=== PATIENT | male | born 1940 | race Caucasian/White ===

== ENCOUNTER → 2016-05-09 | Outpatient (CLI) | payer MEDICARE, OTHER ==
--- NOTE | 2016-05-09 11:54 | US ---
EXAMINATION TYPE: US abdomen limited DATE OF EXAM: 05/09/2016 10:39 AM COMPARISON: NONE CLINICAL HISTORY: M79.81 Nontraumatic Hematoma Of Soft Tissue. elderly pt with significant bruising o katherin the rt flank, pt noticed few days ago, no known trauma, he has been coughing TECHNOLOGIST IMPRESSION: scanned over the pt's area of concern/ significant bruising, no abnormality noted by ultrasound No hematoma is evident. No intramuscular hematomas evident. No fluid is within the abdomen within the [id number]. Subcutaneous tissue appears unremarkable. No demarcation between the bruising and kno t and bruising areas evident. IMPRESSION: 1. Normal soft tissue ultrasound. No etiology for the bruising is evident. No underlying hematoma is evident.
== END | disposition home or self-care (01) ==
LOC: RADUSWWP 10:06
PROVIDERS: ATTEND Family Medicine
DX: M79.81 Nontraumatic hematoma of soft tissue (principal)
CPT/HCPCS: 76705

== ENCOUNTER 2016-07-16 17:06 | Inpatient (IN) | payer MEDICARE, OTHER ==
--- NOTE | 2016-07-16 18:43 | ED ---
General Adult HPI - General Chief complaint: Dizziness Stated complaint: dizzy Time Seen by Provider: 07/16/16 18:00 Source: patient, family, RN notes reviewed Mode of arrival: wheelchair - History of Present Illness Initial comments: This is a 75-year-old male who presents emergency department stating that he is becoming dizzy a few times a day and the symptoms are worsening every day. Patient states that the symptoms for at least a week. Patient states he feels as though is given a passout not fall over. Patient's states he has not yet passed out. Patient states he becomes dizzy only when he is walking and he becomes diaphoretic and short of breath he states he stands around for a little bit and then the symptoms subside. Patient denies any chest pain or palpitations. Patient denies headache patient denies any numbness or local weakness. Patient denied any abdominal pain. Patient denies any nausea or vomiting. Patient denied any recent fever chills or cough. Patient denies any diarrhea. Patient denies headache. - Related Data Home Medications Medication Instructions Recorded Confirmed Finasteride [Proscar] 5 mg PO QAM 10/03/14 07/16/16 Tamsulosin [Flomax] 0.4 mg PO BID 10/03/14 07/16/16 [place]-3 Fatty Acids/Fish Oil [Fish 1 cap PO QAM 11/17/14 07/16/16 Oil 1,000 mg Softgel] HYDROcodone/APAP 10-325MG [[place] 1 tab PO Q4H PRN MDD 5 tablets 07/14/15 10-325] Aspirin EC [Ecotrin Low Dose] 81 mg PO QAM 10/14/15 07/16/16 Atenolol [Tenormin] 25 mg PO BID 10/14/15 07/16/16 Docusate [Colace] 200 mg PO QAM PRN 10/14/15 07/16/16 Simvastatin [Zocor] 40 mg PO HS 10/14/15 07/16/16 Triamterene-Hctz 37.5-25Mg 1 cap PO QAM 07/16/16 07/16/16 [Dyazide 37.5-25 Capsule] Allergies Allergy/AdvReac Type Severity Reaction Status Date / Time No Known Allergies Allergy Verified 07/16/16 18:58 Review of Systems ROS Statement: Those systems with pertinent positive or pertinent negative responses have been documented in the HPI. ROS Other: All systems not noted in ROS Statement are negative. Past Medical History Past Medical History: Atrial Fibrillation, COPD, Hyperlipidemia, Hypertension, Prostate Disorder Additional Past Medical History / Comment(s): Meniere's disease, BPH, DJD, arthiritis, chronic bradycardia, and chronic back pain, diverticulitis. History of Any Multi-Drug Resistant Organisms: None Reported Date of last positivie culture/infection: 2001? MDRO Source:: KNEE Past Surgical History: Back Surgery, Bowel Resection, Hernia Repair, Orthopedic Surgery Additional Past Surgical History / Comment(s): 04/11/15 EP STUDY . Low back surgery with rods and screws. Left knee fluid drained off and patellar scraped. RIGHT inguinal & abdominal hernia repair. Past Anesthesia/Blood Transfusion Reactions: No Reported Reaction Additional Past Anesthesia/Blood Transfusion Reaction / Comment(s): Pt has never recieved blood. Past Psychological History: No Psychological Hx Reported Additional Psychological History / Comment(s): Pt resides with his spouse. He uses a cane or walker to ambulate. He drives. Smoking Status: Former smoker Past Alcohol Use History: None Reported Additional Past Alcohol Use History / Comment(s): Pt quit smoking in 1967. SMOKED FOR 4-6 YRS. PPD-1. Past Drug Use History: None Reported - Past Family History Mother History Unknown: Yes Family Medical History: No Reported History Additional Family Medical History / Comment(s): passed at 79, unknown cause Father History Unknown: Yes Family Medical History: No Reported History Additional Family Medical History / Comment(s): passed at 81yrs. General Exam - General Exam Comments Initial Comments: GENERAL: Patient is well-developed and well-nourished. Patient is nontoxic and well- hydrated and is in mild distress. ENT: Neck is soft and supple. No significant lymphadenopathy is noted. Oropharynx is clear. Moist mucous membranes. Neck has full range of motion without eliciting any pain. EYES: The sclera were anicteric and conjunctiva were pink and moist. Extraocular movements were intact and pupils were equal round and reactive to light. Eyelids were unremarkable. PULMONARY: Unlabored respirations. Good breath sounds bilaterally. No audible rales rhonchi or wheezing was noted. CARDIOVASCULAR: There is a regular rate and rhythm without any murmurs gallops or rubs. ABDOMEN: Soft and nontender with normal bowel sounds. No palpable organomegaly was noted. There is no palpable pulsatile mass. SKIN: Skin is clear with no lesions or rashes and otherwise unremarkable. NEUROLOGIC: Patient is alert and oriented x3. Cranial nerves II through XII are grossly intact. Motor and sensory are also intact. Normal speech, volume and content. Symmetrical smile. MUSCULOSKELETAL: Normal extremities with adequate strength and full range of motion. No lower extremity swelling or edema. No calf tenderness. LYMPHATICS: No significant lymphadenopathy is noted PSYCHIATRIC: Normal psychiatric evaluation. Normal interpersonal interactions appears functionally intact in deals appropriately with others. No signs of depression. No signs of anxiety. Course Vital Signs 07/16/16 07/16/16 07/16/16 17:48 18:18 18:52 Temperature 97.8 F Pulse Rate 60 66 69 Respiratory 18 18 18 Rate Blood Pressure 116/69 112/67 116/61 Blood Pressure 114/79 [Sitting] Blood Pressure 113/58 [Standing] O2 Sat by Pulse 96 97 99 Oximetry Medical Decision Making - Medical Decision Making Patient's EKG shows atrial paced rhythm at 60 bpm CA interval is 288 QRS is 124 QT interval 420 QTC is 420. Patient's EKG is compared to an old EKG and inverted T waves in leads V5 and V6 are the same as seen previously. Chest x-ray showed no acute abnormality. Patient is been he symptomatically in the emergency department. - Lab Data Result diagrams: 07/16/16 18:18 07/16/16 18:18 Lab Results 07/16/16 07/16/16 07/16/16 Range/Units 18:18 18:18 18:18 WBC 8.8 (3.8-10.6) k/uL RBC 4.69 (4.30-5.90) m/uL Hgb 15.0 (13.0-17.5) gm/dL Hct 43.1 (39.0-53.0) % MCV 91.9 (80.0-100.0) fL MCH 31.9 (25.0-35.0) pg MCHC 34.7 (31.0-37.0) g/dL RDW 13.4 (11.5-15.5) % Plt Count 208 (150-450) k/uL Neutrophils % 66 % Lymphocytes % 23 % Monocytes % 7 % Eosinophils % 1 % Basophils % 1 % Neutrophils # 5.8 (1.3-7.7) k/uL Lymphocytes # 2.0 (1.0-4.8) k/uL Monocytes # 0.6 (0-1.0) k/uL Eosinophils # 0.1 (0-0.7) k/uL Basophils # 0.1 (0-0.2) k/uL PT (9.0-12.0) sec INR (<1.1) APTT (22.0-30.0) sec D-Dimer (<0.60) mg/L FEU Sodium 141 (137-145) mmol/L Potassium 3.6 (3.5-5.1) mmol/L Chloride 106 (98-107) mmol/L Carbon Dioxide 23 (22-30) mmol/L Anion Gap 12 mmol/L BUN 33 H (9-20) mg/dL Creatinine 1.51 H (0.66-1.25) mg/dL Est GFR (MDRD) Af Amer 55 (>60 ml/min/1.73 sqM) Est GFR (MDRD) Non-Af 46 (>60 ml/min/1.73 sqM) Glucose 89 (74-99) mg/dL Calcium 9.5 (8.4-10.2) mg/dL Magnesium 2.2 (1.6-2.3) mg/dL Total Bilirubin 0.7 (0.2-1.3) mg/dL AST 18 (17-59) U/L ALT 28 (21-72) U/L Alkaline Phosphatase 68 (38-126) U/L Total Creatine Kinase 145 (55-170) U/L CK-MB (CK-2) 2.0 (0.0-2.4) ng/mL CK-MB (CK-2) Rel Index 1.4 Troponin I 0.029 (0.000-0.034) ng/mL Total Protein 7.2 (6.3-8.2) g/dL Albumin 4.3 (3.5-5.0) g/dL 07/16/16 Range/Units 18:18 WBC (3.8-10.6) k/uL RBC (4.30-5.90) m/uL Hgb (13.0-17.5) gm/dL Hct (39.0-53.0) % MCV (80.0-100.0) fL MCH (25.0-35.0) pg MCHC (31.0-37.0) g/dL RDW (11.5-15.5) % Plt Count (150-450) k/uL Neutrophils % % Lymphocytes % % Monocytes % % Eosinophils % % Basophils % % Neutrophils # (1.3-7.7) k/uL Lymphocytes # (1.0-4.8) k/uL Monocytes # (0-1.0) k/uL Eosinophils # (0-0.7) k/uL Basophils # (0-0.2) k/uL PT 10.8 (9.0-12.0) sec INR 1.1 (<1.1) APTT 24.7 (22.0-30.0) sec D-Dimer 0.54 (<0.60) mg/L FEU Sodium (137-145) mmol/L Potassium (3.5-5.1) mmol/L Chloride (98-107) mmol/L Carbon Dioxide (22-30) mmol/L Anion Gap mmol/L BUN (9-20) mg/dL Creatinine (0.66-1.25) mg/dL Est GFR (MDRD) Af Amer (>60 ml/min/1.73 sqM) Est GFR (MDRD) Non-Af (>60 ml/min/1.73 sqM) Glucose (74-99) mg/dL Calcium (8.4-10.2) mg/dL Magnesium (1.6-2.3) mg/dL Total Bilirubin (0.2-1.3) mg/dL AST (17-59) U/L ALT (21-72) U/L Alkaline Phosphatase (38-126) U/L Total Creatine Kinase (55-170) U/L CK-MB (CK-2) (0.0-2.4) ng/mL CK-MB (CK-2) Rel Index Troponin I (0.000-0.034) ng/mL Total Protein (6.3-8.2) g/dL Albumin (3.5-5.0) g/dL Disposition Clinical Impression: Near syncope Disposition: ADMITTED IP TO THIS [facility] Time of Disposition: 19:40
[2016-07-16 18:48] LABS: Basophils # (A) 0.1 k/uL (0-0.2); Basophils % (A) 1 %; CH 32.1; CHCM 35.1; Eosinophils # (A) 0.1 k/uL (0-0.7); Eosinophils % (A) 1 %; HCT 43.1 % (39.0-53.0); HDW 2.47; Luc % (Auto) 2; Lymphocytes % (A) 23 %; MCH 31.9 pg (25.0-35.0); MCHC 34.7 g/dL (31.0-37.0); MCV 91.9 fL (80.0-100.0); Mean Platelet Volume 6.9; Monocytes # (A) 0.6 k/uL (0-1.0); Monocytes % (A) 7 %; Neutrophils # (A) 5.8 k/uL (1.3-7.7); Neutrophils % (A) 66 %; RBC 4.69 m/uL (4.30-5.90); RDW 13.4 % (11.5-15.5); WBC 8.8 k/uL (3.8-10.6)
[2016-07-16 19:04] LABS: Calcium 9.5 mg/dL (8.4-10.2); Magnesium 2.2 mg/dL (1.6-2.3); Potassium 3.6 mmol/L (3.5-5.1); Total Bilirubin 0.7 mg/dL (0.2-1.3); Total Protein 7.2 g/dL (6.3-8.2)
--- NOTE | 2016-07-16 19:04 | XR ---
EXAMINATION TYPE: XR chest 2V DATE OF EXAM: 07/16/2016 6:50 PM COMPARISON: 10/04/2015 HISTORY: Dizziness and shortness of breath that is exertional. TECHNIQUE: Frontal and lateral views of the chest are obtained. FINDINGS: There are low lung volumes with chronic elevation of the right hemidiaphragm. A new trace left pleural effusion is seen. Cardiac size is stable. Dual lead left-sided cardiac device is again p resent. Degenerative changes are seen in the visualized thoracic spine. No focal consolidation or pne umothorax is seen. IMPRESSION: 1. Interval development of a trace left pleural effusion. 2. Low lung volumes and chronic elevation of the right hemidiaphragm. 3. No focal consolidation.
[2016-07-16 19:06] LABS: INR 1.1 (<1.1); Partial Thromboplastin Time 24.7 sec (22.0-30.0); Prothrombin Time 10.8 sec (9.0-12.0)
[2016-07-16 19:29] LABS: Troponin I 0.029 ng/mL (0.000-0.034)
[2016-07-16] MEDS ORDERED: NITROGLYCERIN SL TABS 0.4 MG TAB SUBLINGUAL PRN (19:41)
[2016-07-16 20:50] VITALS: BMI 29.2
[2016-07-16] MEDS: HYDROcodone/APAP 10-325MG 1 EACH TAB PO PRN (23:53)
[2016-07-16] MEDS: ATENOLOL 25 MG TAB PO SCH (23:55)
[2016-07-16] MEDS: TAMSULOSIN 0.4 MG CAP.ER.24H PO SCH (23:55)
[2016-07-16] MEDS: ATORVASTATIN 20 MG TAB PO SCH (23:55)
[2016-07-17 00:51] LABS: Creatine Kinase MB 2.2 ng/mL (0.0-2.4); Troponin I 0.029 ng/mL (0.000-0.034)
[2016-07-17 07:09] LABS: Cholesterol 153 mg/dL (<200); HDL Cholesterol 48 mg/dL (40-60); Triglycerides 139 mg/dL (<150)
[2016-07-17 07:34] LABS: Troponin I 0.026 ng/mL (0.000-0.034)
[2016-07-17] MEDS ORDERED: ASPIRIN 325 MG TAB PO SCH (09:00)
[2016-07-17] MEDS: HYDROcodone/APAP 10-325MG 1 EACH TAB PO PRN ×2 (11:10→21:10)
[2016-07-17] MEDS: ATENOLOL 25 MG TAB PO SCH ×2 (11:11→21:10)
[2016-07-17] MEDS: TAMSULOSIN 0.4 MG CAP.ER.24H PO SCH ×2 (11:12→21:10)
--- NOTE | 2016-07-17 11:49 | P.CRDCN ---
<Vilma Lion E - Last Filed: 07/17/16 11:32> History of Present Illness Consult date: 07/17/16 Requesting physician: Rizwana Carr Reason for Consult (text): Dizziness Chief complaint: Dizziness History of present illness: This is a pleasant 75-year-old gentleman who follows regularly with Dr. Ritter in the office. has a known history of hypertension, hyperlipidemia, COPD, prior pacemaker implantation, patient also has history of a reveal monitor in the past which revealed SVT. He underwent EP study by Dr. Mcrae with subsequent successful AV liborio reentry tachycardia ablation. Patient also has paroxysmal atrial fibrillation. presents to the hospital on this occasion with symptoms of dizziness. 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 He states then that when he starts walking he has noticed himself to be more short of breath than usual. The patient denies any chest discomfort. No syncopal episodes. He also states that he recently underwent a stress test in the office with Dr. Triplett. EKG performed on arrival here showed an atrial sensed V paced rhythm with nonspecific ST-T wave changes. Similar to the patient's prior EKGs. Chest x-ray reveals interval development of a trace left pleural effusion. No focal consolidation is noted. Blood pressure 114/58 with a heart rate in the 50s to 60s. WBC 8.8, hemoglobin 15.0, d-dimer negative at 0.5. Potassium 3.6, BUN 33, and creatinine 1.5. Mag level 2.2. BNP level 212. At the time of my examination this morning, patient is lying comfortably in bed, denies any dizziness, no lightheadedness, no shortness of breath. Past Medical History Past Medical History: Atrial Fibrillation, COPD, Hyperlipidemia, Hypertension, Prostate Disorder Additional Past Medical History / Comment(s): Meniere's disease, BPH, DJD, arthiritis, chronic bradycardia, and chronic back pain, diverticulitis. History of Any Multi-Drug Resistant Organisms: None Reported Date of last positivie culture/infection: 2001? MDRO Source:: KNEE Past Surgical History: Back Surgery, Bowel Resection, Hernia Repair, Orthopedic Surgery Additional Past Surgical History / Comment(s): 04/11/15 EP STUDY . Low back surgery with rods and screws. Left knee fluid drained off and patellar scraped. RIGHT inguinal & abdominal hernia repair. Past Anesthesia/Blood Transfusion Reactions: No Reported Reaction Additional Past Anesthesia/Blood Transfusion Reaction / Comment(s): Pt has never recieved blood. Past Psychological History: No Psychological Hx Reported Additional Psychological History / Comment(s): Pt resides with his spouse. He uses a cane or walker to ambulate. He drives. Smoking Status: Former smoker Past Alcohol Use History: None Reported Additional Past Alcohol Use History / Comment(s): Pt quit smoking in 1967. SMOKED FOR 4-6 YRS. PPD-1. Past Drug Use History: None Reported - Past Family History Mother History Unknown: Yes Family Medical History: No Reported History Additional Family Medical History / Comment(s): passed at 79, unknown cause Father History Unknown: Yes Family Medical History: No Reported History Additional Family Medical History / Comment(s): passed at 81yrs. Medications and Allergies Home Medications Medication Instructions Recorded Confirmed Type Finasteride [Proscar] 5 mg PO QAM 10/03/14 07/16/16 History Tamsulosin [Flomax] 0.4 mg PO BID 10/03/14 07/16/16 History [place]-3 Fatty Acids/Fish Oil [Fish 1 cap PO QAM 11/17/14 07/16/16 History Oil 1,000 mg Softgel] HYDROcodone/APAP 10-325MG [[place] 1 tab PO Q4H PRN MDD 5 tablets 07/14/15 History 10-325] Aspirin EC [Ecotrin Low Dose] 81 mg PO QAM 10/14/15 07/16/16 History Atenolol [Tenormin] 25 mg PO BID 10/14/15 07/16/16 History Docusate [Colace] 200 mg PO QAM PRN 10/14/15 07/16/16 History Simvastatin [Zocor] 40 mg PO HS 10/14/15 07/16/16 History Triamterene-Hctz 37.5-25Mg 1 cap PO QAM 07/16/16 07/16/16 History [Dyazide 37.5-25 Capsule] Allergies Allergy/AdvReac Type Severity Reaction Status Date / Time No Known Allergies Allergy Verified 07/16/16 18:58 Physical Exam Vitals: Vital Signs Temp Pulse Pulse Resp BP BP BP 07/17/16 07:57 97.2 F L 57 L 16 113/58 07/17/16 04:00 97.3 F L 61 16 98/56 07/17/16 00:00 97.1 F L 60 16 113/66 07/16/16 20:18 97.0 F L 60 16 119/69 07/16/16 18:52 69 18 116/61 07/16/16 18:18 66 18 112/67 114/79 113/58 07/16/16 17:48 97.8 F 60 18 116/69 Pulse Ox 07/17/16 07:57 97 07/17/16 04:00 94 L 07/17/16 00:00 98 07/16/16 20:18 99 07/16/16 18:52 99 07/16/16 18:18 97 07/16/16 17:48 96 Intake and Output 07/16/16 07/17/16 07/17/16 22:59 06:59 14:59 Intake Total 400 300 Balance 400 300 Intake: Oral 400 300 Other: Voiding Method Toilet Urinal Weight 95.25 kg 96.9 kg PHYSICAL EXAMINATION: HEENT: Head is atraumatic, normocephalic. Pupils equal, round. Neck is supple. There is no elevated jugular venous pressure. HEART EXAMINATION: Heart S1, S2 normal. No murmur or gallop heard. CHEST EXAMINATION: Lungs are clear to auscultation and precussion. No chest wall tenderness is noted on palpation or with deep breathing. ABDOMEN: Soft, nontender. Bowel sounds are heard. No organomegaly noted. EXTREMITIES: 2+ peripheral pulses with no evidence of peripheral edema and no calf tenderness noted. Boot in place to the left lower extremity because of an Achilles tendon rupture NEUROLOGIC patient is awake, alert and oriented -3. . Results 07/16/16 18:18 07/16/16 18:18 Cardiac Enzymes 07/16/16 07/16/16 07/17/16 Range/Units 18:18 18:18 00:04 AST 18 (17-59) U/L CK-MB (CK-2) 2.0 2.2 (0.0-2.4) ng/mL Troponin I 0.029 0.029 (0.000-0.034) ng/mL 07/17/16 Range/Units 06:06 AST (17-59) U/L CK-MB (CK-2) 2.0 (0.0-2.4) ng/mL Troponin I 0.026 (0.000-0.034) ng/mL Coagulation 07/16/16 Range/Units 18:18 PT 10.8 (9.0-12.0) sec APTT 24.7 (22.0-30.0) sec Lipids 07/17/16 Range/Units 06:06 Triglycerides 139 (<150) mg/dL Cholesterol 153 (<200) mg/dL HDL Cholesterol 48 (40-60) mg/dL CBC 07/16/16 Range/Units 18:18 WBC 8.8 (3.8-10.6) k/uL RBC 4.69 (4.30-5.90) m/uL Hgb 15.0 (13.0-17.5) gm/dL Hct 43.1 (39.0-53.0) % Plt Count 208 (150-450) k/uL Comprehensive Metabolic Panel 07/16/16 Range/Units 18:18 Sodium 141 (137-145) mmol/L Potassium 3.6 (3.5-5.1) mmol/L Chloride 106 (98-107) mmol/L Carbon Dioxide 23 (22-30) mmol/L BUN 33 H (9-20) mg/dL Creatinine 1.51 H (0.66-1.25) mg/dL Glucose 89 (74-99) mg/dL Calcium 9.5 (8.4-10.2) mg/dL AST 18 (17-59) U/L ALT 28 (21-72) U/L Alkaline Phosphatase 68 (38-126) U/L Total Protein 7.2 (6.3-8.2) g/dL Albumin 4.3 (3.5-5.0) g/dL Current Medications Generic Name Dose Route Start Last Admin Trade Name Freq PRN Reason Stop Dose Admin Hydrocodone Bitart/Acetaminophen 1 each 07/16/16 23:07 07/17/16 11:10 [place] 10 PO 1 each Q4H PRN Administration Pain Aspirin 325 mg 07/17/16 09:00 07/17/16 11:11 Aspirin PO 325 mg DAILY ILYA Administration Atenolol 25 mg 07/16/16 23:15 07/17/16 11:11 Tenormin PO 25 mg BID ILYA Administration Atorvastatin Calcium 20 mg 07/16/16 23:15 07/16/16 23:55 Lipitor PO 20 mg HS ILYA Administration Nitroglycerin 0.4 mg 07/16/16 19:41 Nitrostat SUBLINGUAL Q5M PRN Chest Pain Tamsulosin HCl 0.4 mg 07/16/16 23:15 07/17/16 11:12 Flomax PO 0.4 mg BID ILYA Administration Intake and Output 07/16/16 07/17/16 07/17/16 22:59 06:59 14:59 Intake Total 400 300 Balance 400 300 Intake: Oral 400 300 Other: Voiding Method Toilet Urinal Weight 95.25 kg 96.9 kg 07/16/16 18:18 07/16/16 18:18 EKG Interpretations (text) EKG shows an a sensed V paced rhythm. Assessment and Plan Plan: Assessment and plan #1 symptoms of dizziness with no overt syncope. Could be secondary to orthostatic hypotension. D-dimer negative. #2 history of paroxysmal atrial fibrillation #3 history of SVT with prior SVT ablation #4 prior pacemaker implantation #5 abnormal creatinine likely secondary to dehydration. Patient is on Dyazide at home. #6 hypertension #7 hyperlipidemia #8 COPD Plan We will hold the Dyazide, hydrate the patient. Check orthostatic heart rate and blood pressure every shift. Decrease aspirin to 81 mg daily. We will also have the pacemaker interrogated. Obtain recent stress test from the office. Further recommendations to follow. DNP note has been reviewed, I agree with a documented findings and plan of care. Patient was seen and examined. <Mayo Mcrae - Last Filed: 07/17/16 12:12> Physical Exam Vitals: Vital Signs Temp Pulse Pulse Resp BP BP BP 07/17/16 07:57 97.2 F L 57 L 16 113/58 07/17/16 04:00 97.3 F L 61 16 98/56 07/17/16 00:00 97.1 F L 60 16 113/66 07/16/16 20:18 97.0 F L 60 16 119/69 07/16/16 18:52 69 18 116/61 07/16/16 18:18 66 18 112/67 114/79 113/58 07/16/16 17:48 97.8 F 60 18 116/69 Pulse Ox 07/17/16 07:57 97 07/17/16 04:00 94 L 07/17/16 00:00 98 07/16/16 20:18 99 07/16/16 18:52 99 07/16/16 18:18 97 07/16/16 17:48 96 Intake and Output 07/16/16 07/17/16 07/17/16 22:59 06:59 14:59 Intake Total 400 300 Balance 400 300 Intake: Oral 400 300 Other: Voiding Method Toilet Urinal Weight 95.25 kg 96.9 kg Results 07/16/16 18:18 07/16/16 18:18 Cardiac Enzymes 07/16/16 07/16/16 07/17/16 Range/Units 18:18 18:18 00:04 AST 18 (17-59) U/L CK-MB (CK-2) 2.0 2.2 (0.0-2.4) ng/mL Troponin I 0.029 0.029 (0.000-0.034) ng/mL 07/17/16 Range/Units 06:06 AST (17-59) U/L CK-MB (CK-2) 2.0 (0.0-2.4) ng/mL Troponin I 0.026 (0.000-0.034) ng/mL Coagulation 07/16/16 Range/Units 18:18 PT 10.8 (9.0-12.0) sec APTT 24.7 (22.0-30.0) sec Lipids 07/17/16 Range/Units 06:06 Triglycerides 139 (<150) mg/dL Cholesterol 153 (<200) mg/dL HDL Cholesterol 48 (40-60) mg/dL CBC 07/16/16 Range/Units 18:18 WBC 8.8 (3.8-10.6) k/uL RBC 4.69 (4.30-5.90) m/uL Hgb 15.0 (13.0-17.5) gm/dL Hct 43.1 (39.0-53.0) % Plt Count 208 (150-450) k/uL Comprehensive Metabolic Panel 07/16/16 Range/Units 18:18 Sodium 141 (137-145) mmol/L Potassium 3.6 (3.5-5.1) mmol/L Chloride 106 (98-107) mmol/L Carbon Dioxide 23 (22-30) mmol/L BUN 33 H (9-20) mg/dL Creatinine 1.51 H (0.66-1.25) mg/dL Glucose 89 (74-99) mg/dL Calcium 9.5 (8.4-10.2) mg/dL AST 18 (17-59) U/L ALT 28 (21-72) U/L Alkaline Phosphatase 68 (38-126) U/L Total Protein 7.2 (6.3-8.2) g/dL Albumin 4.3 (3.5-5.0) g/dL Current Medications Generic Name Dose Route Start Last Admin Trade Name Freq PRN Reason Stop Dose Admin Hydrocodone Bitart/Acetaminophen 1 each 07/16/16 23:07 07/17/16 11:10 [place] 10 PO 1 each Q4H PRN Administration Pain Aspirin 81 mg 07/18/16 09:00 Aspirin PO DAILY ILYA Atenolol 25 mg 07/16/16 23:15 07/17/16 11:11 Tenormin PO 25 mg BID ILYA Administration Atorvastatin Calcium 20 mg 07/16/16 23:15 07/16/16 23:55 Lipitor PO 20 mg HS ILYA Administration Sodium Chloride 1,000 mls @ 75 mls/hr 07/17/16 12:00 07/17/16 12:05 Saline 0.9% IV 75 mls/hr .[id number] ILYA Administration Nitroglycerin 0.4 mg 07/16/16 19:41 Nitrostat SUBLINGUAL Q5M PRN Chest Pain Tamsulosin HCl 0.4 mg 07/16/16 23:15 07/17/16 11:12 Flomax PO 0.4 mg BID ILYA Administration Intake and Output 07/16/16 07/17/16 07/17/16 22:59 06:59 14:59 Intake Total 400 300 Balance 400 300 Intake: Oral 400 300 Other: Voiding Method Toilet Urinal Weight 95.25 kg 96.9 kg 07/16/16 18:18 07/16/16 18:18
[2016-07-17] MEDS: SODIUM CHLORIDE 0.9% 1,000 ML IV SCH (12:05)
--- NOTE | 2016-07-17 13:04 | P.PN ---
Progress Note - Text Patient seen and examined Orthostatic hypotension corresponded to his symptoms History of pacemaker implantation History of SVT ablation Short of breath on exertion Suggest Florinef 0.1 mg by mouth daily Cortisol level TSH 2-D echo and Doppler study to assess cardiac structure and function Stop diuretics completely
[2016-07-17] MEDS: ATORVASTATIN 20 MG TAB PO SCH (21:10)
[2016-07-18] MEDS: SODIUM CHLORIDE 0.9% 1,000 ML IV SCH ×2 (02:31→12:18)
[2016-07-18 06:33] LABS: Basophils # (A) 0.1 k/uL (0-0.2); Basophils % (A) 1 %; CH 31.9; CHCM 34.4; Eosinophils # (A) 0.2 k/uL (0-0.7); Eosinophils % (A) 3 %; HDW 2.47; HGB 13.5 gm/dL (13.0-17.5); Luc # (Auto) 0.15; Luc % (Auto) 2; Lymphocytes # (A) 1.7 k/uL (1.0-4.8); Lymphocytes % (A) 24 %; MCH 31.4 pg (25.0-35.0); MCHC 33.7 g/dL (31.0-37.0); MCV 93.3 fL (80.0-100.0); Mean Platelet Volume 7.3; Monocytes # (A) 0.5 k/uL (0-1.0); Monocytes % (A) 7 %; Neutrophils # (A) 4.7 k/uL (1.3-7.7); Neutrophils % (A) 64 %; RBC 4.29 m/uL (4.30-5.90); RDW 13.3 % (11.5-15.5); WBC 7.2 k/uL (3.8-10.6); WBC (Perox) 7.27
[2016-07-18 06:46] LABS: Anion Gap 9 mmol/L; Blood Urea Nitrogen 28 mg/dL (9-20); Calcium 8.7 mg/dL (8.4-10.2); Carbon Dioxide 21 mmol/L (22-30); Chloride 109 mmol/L (98-107); Glucose 91 mg/dL (74-99); Non-African American GFR(MDRD) >60 (>60 ml/min/1.73 sqM); Potassium 3.8 mmol/L (3.5-5.1); Sodium 139 mmol/L (137-145)
[2016-07-18] MEDS: TAMSULOSIN 0.4 MG CAP.ER.24H PO SCH (07:35)
[2016-07-18] MEDS: ATENOLOL 25 MG TAB PO SCH (07:36)
[2016-07-18] MEDS: HYDROcodone/APAP 10-325MG 1 EACH TAB PO PRN (07:41)
--- NOTE | 2016-07-18 07:56 | HP ---
DATE OF ADMISSION: CHIEF COMPLAINT: Dizziness and near syncope. HISTORY OF PRESENT ILLNESS: Mr. Caputo is a 75-year-old male with a known history of atrial fibrillation, history of SVT and ablation, and a pacemaker placement, hypertension, hyperlipidemia, and COPD. Came to the hospital with complaints of symptoms of dizziness, especially when he was getting up from sitting position. The patient has been extremely dizzy and has to appeals examiner one spot for several minutes. Once he does this, dizziness seems to go away. Patient says that it has been getting worse for the past one week The patient follows Dr. Triplett and ( ) and seen by Dr. Mcrae in the past. EKG showed ventricular paced rhythm. No ST-T wave changes. Chest x-ray showed trace pulmonary effusion interval development. Patient was found to have elevated BUN and creatinine level. Patient apparently having left leg surgery for the tendon repair and is with a cast now, which has been present almost 6 to 7 weeks. Otherwise, the patient is symptomatic when he is lying on the bed. Patient was seen by Cardiology and tung Duran at this time and continued on IV fluids. REVIEW OF SYSTEMS: CONSTITUTIONAL: No fever. No chills. No weakness. RESPIRATORY: No cough or sputum production. No short of breath. CARDIOVASCULAR: No chest pain. Patient does have palpitations and dizziness. No leg swelling. ABDOMEN: No nausea, vomiting or abdominal pain. GENITOURINARY: Negative. ENDOCRINE: Negative. PSYCHIATRIC: Negative. NEUROLOGIC: Patient does have dizziness when he was getting up. No focal weakness. All other 14-point review of systems negative except as above. PAST MEDICAL HISTORY: Hypertension, hyperlipidemia, COPD, atrial fibrillation, BPH, Meniere's disease, osteoarthritis, chronic bradycardia, chronic back pain, history of diverticulitis, history of SVT, status post ablation. PAST SURGICAL HISTORY: Back surgery, bowel resection, hernia surgery, knee surgery, left knee fluid drained off and patella scraped and right inguinal and abdominal hernia repair. SOCIAL HISTORY: Patient resides with his . He uses a cane or walker to ambulate. Patient is a former smoker; quit in 1967. Smoke for 4 to 6 years 1 pack per day. Denied alcohol use. Denied any drugs or IVDU. FAMILY HISTORY: Mother has no reported history. Father has no reported history. Home medication include: 1. Proscar. 2. Flomax. 3. [place]-3 fatty acids. 4. [place]. 5. Aspirin. 6. Atenolol. 7. Docusate. 8. Simvastatin. 9. Triamterene hydrochlorothiazide PHYSICAL EXAMINATION: A 75-year-old male lying in the bed. Awake, alert, and oriented x3. He appears to be in no apparent distress. VITALS: Blood pressure is 120/69, pulse is 65, respirations 18, temperature afebrile, pulse ox 95% on room air. HEENT: Atraumatic, normocephalic. Neck is supple. No JVD. CVS EXAM: S1, S2 heard. No murmurs, no gallop, no rub. LUNGS: Bilateral air entry is present. No wheezing. No crackles. Nonlabored breathing. ABDOMEN: Soft, nontender. Bowel sounds are present. [employer]ATING [employer]ISHER: Awake, alert, oriented x3. No focal deficit. EXTREMITIES: No edema. Pulses are palpable bilaterally. No clubbing or cyanosis. Left lower extremity cast is in place. PSYCHIATRIC: Cooperative. LABORATORY DATA: WBC 8.8, hemoglobin 15.0, platelets 208. INR 1.1. D-dimer is 0.54, not elevated. Sodium 141, potassium 3.6, chloride 106, bicarb is 23, BUN 33, creatinine 1.51. Liver enzymes are not elevated. Troponin x3 negative. Albumin 4.3. LDL is 77. EKG showed atrial paced rhythm with prolonged AV conduction. Chest x-ray showed no cardiopulmonary process. IMPRESSION: 1. Near syncope secondary to orthostatic hypotension. Diuretics have been held. Florinef has been started TSH was ordered. Cortisol level within normal limits. 2. Paroxysmal atrial fibrillation . 3. Benign prostatic hypertrophy. 4. Hypertension. 5. Hyperlipidemia. 6. History of chronic obstructive pulmonary disease not in exacerbation. 7. Degenerative joint disease. 8. Chronic back pain. 9. Meniere's disease. DISCUSSION AND PLAN: Patient will be continued on telemonitoring. Continue with IV fluids and diuretics have been held. Cortisol heart level within normal limits. Will follow up TSH level. Patient was seen by cardiology. Otherwise, patient is hemodynamically stable. Will follow up closely. Further recommendations based on the clinical course.
[2016-07-18] MEDS ORDERED: ASPIRIN 81 MG CHEW PO SCH (09:00)
[2016-07-18 12:24] VITALS: BP 106/56; PULSE 61; RESP 16; TEMP 96.9
--- NOTE | 2016-07-18 14:42 | P.DS ---
Providers Date of admission: 07/16/16 19:42 Attending physician: Rizwana Carr Consults: 07/16/16 19:42 Consult Physician Urgent Consulting Provider: [facility] Consult Reason/Comments: Near syncope Do you want consulting provider notified?: Yes Primary care physician: Sharron Byrne [facility] Course: This is a 72-year-old gentleman with history of atrial fibrillation COPD hypertension comes in the hospital complains of dizziness. Patient was noted to have positive orthostatics on admission. In the recent times apparently his oral intake has been decreased. Patient has been taking the hydrochlorothiazide triamterene next for blood pressure management. Patient was admitted to the hospital EKG did not reveal any conduction blocks Telemetry did not reveal any abnormalities. On the day of discharge patient's orthostatics were negative was able to ambulate without much difficulty. A cortisol level was ordered on admission was 11. Unsure if the patient was orthostatic at that time will discontinue the antihypertensive at this time. On outpatient basis the patient continues to have symptoms a repeat cortisol level should be done at that time patient would benefit from being started on fludrocortisone point We'll also decrease the patient's Flomax 0.4 mg. Daily Physical exam Gen. appearance oriented 3 in no distress Neck is supple no JVD Lungs good air entry clear to auscultation no rhonchi or wheezing Heart S1-S2 heard regular rate and rhythm no murmurs appreciated Abdomen is soft nontender no organomegaly bowel sounds are intact Neurologically cranial nerves II-12 grossly intact no focal motor or sensory deficits noted Skin no abnormalities appreciated Discharge diagnosis Presyncope be secondary to orthostatic hypotension #2 atrial fibrillation #3 COPD that is stable #4 left Achilles tendon rupture Number #5 hypertension #6 dyslipidemia #7 BPH #8 Mnire's disease #9 chronic back pain Plan - Discharge Summary Discharge Medication List Finasteride [Proscar] 5 mg PO QAM 10/03/14 [History] [place]-3 Fatty Acids/Fish Oil [Fish Oil 1,000 mg Softgel] 1 cap PO QAM 11/17/14 [ History] HYDROcodone/APAP 10-325MG [[place] 10-325] 1 tab PO Q4H PRN MDD 5 tablets [History] Aspirin EC [Ecotrin Low Dose] 81 mg PO QAM 10/14/15 [History] Atenolol [Tenormin] 25 mg PO BID 10/14/15 [History] Docusate [Colace] 200 mg PO QAM PRN 10/14/15 [History] Simvastatin [Zocor] 40 mg PO HS 10/14/15 [History] Tamsulosin [Flomax] 0.4 mg PO DAILY #0 07/18/16 [Rx] Follow up Appointment(s)/Referral(s): Sharron Ybarra III, MD [Primary Care Provider] - 1-2 days Vincent Triplett MD [STAFF PHYSICIAN] - 1 Week Discharge Disposition: HOME SELF-CARE
[2016-07-18] MEDS ORDERED: FLUDROCORTISONE 0.1 MG TAB PO SCH (15:15)
== END 2016-07-18 16:36 | disposition home or self-care (01) | DRG 312 ==
LOC: EC 17:06 → 6SEL 19:42
PROVIDERS: ADMIT Hospitalist; ATTEND Hospitalist
DX: I95.1 Orthostatic hypotension (principal); J44.9 Chronic obstructive pulmonary disease, unspecified; R00.1 Bradycardia, unspecified; I48.0 Paroxysmal atrial fibrillation; I10 Essential (primary) hypertension; E78.5 Hyperlipidemia, unspecified; E86.0 Dehydration; G89.29 Other chronic pain; H81.09 Meniere's disease, unspecified ear; M19.90 Unspecified osteoarthritis, unspecified site; N40.0 Benign prostatic hyperplasia without lower urinary tract symptoms; M54.9 Dorsalgia, unspecified; K57.90 Diverticulosis of intestine, part unspecified, without perforation or abscess without bleeding; S86.012D Strain of left Achilles tendon, subsequent encounter; Z79.82 Long term (current) use of aspirin; Z79.899 Other long term (current) drug therapy; Z87.891 Personal history of nicotine dependence; Z95.0 Presence of cardiac pacemaker
CPT/HCPCS: 36415; 71020; 80048; 80053; 80061; 82533; 82550; 82553; 83735; 83880; 84443; 84484; 85025; 85379; 85610; 85730; 93005

== ENCOUNTER → 2016-09-07 | Outpatient (CLI) | payer MEDICARE, OTHER ==
--- NOTE | 2016-09-07 10:08 | US ---
EXAMINATION TYPE: US abdomen limited DATE OF EXAM: 09/07/2016 COMPARISON: NONE CLINICAL HISTORY: K43.9 Ventral Hernia. Patient states he has hernia repair with mesh. Scanned abdominal wall around umbilicus area with and without valsalva, no sonographic evidence for h ernia. IMPRESSION: NO EVIDENCE OF RECURRENT HERNIA AT THIS TIME.
== END | disposition home or self-care (01) ==
LOC: RADUSWWP 09:41
PROVIDERS: ATTEND Family Medicine
DX: K43.9 Ventral hernia without obstruction or gangrene (principal)
CPT/HCPCS: 76705

== ENCOUNTER → 2017-03-15 | Outpatient (CLI) | payer MEDICARE, OTHER ==
[2017-03-15 09:12] LABS: MCHC 33.3 g/dL (31.0-37.0); MCV 93.2 fL (80.0-100.0); Mean Platelet Volume 7.8; Platelet Count 188 k/uL (150-450); RBC 4.83 m/uL (4.30-5.90); RDW 14.5 % (11.5-15.5); WBC 8.4 k/uL (3.8-10.6)
[2017-03-15 09:22] LABS: Anion Gap 14 mmol/L; Blood Urea Nitrogen 21 mg/dL (9-20); Carbon Dioxide 25 mmol/L (22-30); Chloride 101 mmol/L (98-107); Potassium 3.8 mmol/L (3.5-5.1); Sodium 140 mmol/L (137-145)
== END | disposition home or self-care (01) ==
LOC: LABWHC1 07:57
PROVIDERS: ATTEND Internal Medicine Cardiovascular Disease
DX: I48.3 Typical atrial flutter (principal); Z79.899 Other long term (current) drug therapy
CPT/HCPCS: 36415; 80051; 82565; 84443; 84520; 85027

== ENCOUNTER 2018-09-10 20:54 | Inpatient (IN) | payer MEDICARE, OTHER ==
[2018-09-10] MEDS ORDERED: MORPHINE SULFATE 2 MG/ML SYRINGE IVP STA (21:28)
[2018-09-10] MEDS ORDERED: SODIUM CHLORIDE 0.9% 500 ML 500 ML IV STA (21:28)
[2018-09-10] MEDS ORDERED: ONDANSETRON 4 MG/2 ML VIAL IVP STA (21:28)
[2018-09-10 21:58] LABS: Basophils % (A) 0 %; Eosinophils # (A) 0.2 k/uL (0-0.7); Eosinophils % (A) 1 %; HCT 46.6 % (39.0-53.0); HGB 14.9 gm/dL (13.0-17.5); Lymphocytes # (A) 1.2 k/uL (1.0-4.8); Lymphocytes % (A) 10 %; MCH 30.3 pg (25.0-35.0); MCV 94.8 fL (80.0-100.0); Monocytes # (A) 0.5 k/uL (0-1.0); Monocytes % (A) 4 %; Neutrophils # (A) 10.5 k/uL (1.3-7.7); Neutrophils % (A) 83 %; Platelet Count 198 k/uL (150-450); RBC 4.91 m/uL (4.30-5.90); RDW 13.3 % (11.5-15.5); WBC 12.6 k/uL (3.8-10.6)
[2018-09-10 22:07] LABS: Albumin 4.4 g/dL (3.5-5.0); Calcium 9.5 mg/dL (8.4-10.2); Potassium 3.9 mmol/L (3.5-5.1); Total Bilirubin 1.2 mg/dL (0.2-1.3); Total Protein 7.3 g/dL (6.3-8.2)
--- NOTE | 2018-09-10 22:55 | CT ---
EXAM: CT Abdomen and Pelvis Without Intravenous Contrast CLINICAL HISTORY: Pain and constipation TECHNIQUE: Axial computed tomography images of the abdomen and pelvis without intravenous contrast. CTDI is 20.97 mGy and DLP is 1272.4 mGy-cm. This CT exam was performed using one or more of the following dose reduction techniques: automated exposure control, adjustment of the mA and/or kV according to patient size, and/or use of iterative reconstruction technique. COMPARISON: No relevant prior studies available. FINDINGS: Lung bases: Atelectasis and scarring within the lung bases. Heart: Trace pericardial effusion. ABDOMEN: Liver: Unremarkable. Gallbladder and bile ducts: Unremarkable. Pancreas: Unremarkable. Spleen: Unremarkable. Adrenals: Unremarkable. Kidneys and ureters: Nonobstructing calculus within the left kidney. Pollicis within the right kidney. Stomach and bowel: Small bowel obstruction with a transition point in the left lower quadrant (201-66). Postsurgical changes within the bowel. PELVIS: Appendix: Appendix is unremarkable. Bladder: Unremarkable. Reproductive: Prostate gland is enlarged. ABDOMEN and PELVIS: Intraperitoneal space: Unremarkable. Bones/joints: Posterior change within the spine. No acute fracture. No dislocation. Soft tissues: Evidence of hernia with mesh seen with the anterior abdominal and pelvic wall. Vasculature: Unremarkable. No abdominal aortic aneurysm. Lymph nodes: Unremarkable. Tubes, lines and devices: Evidence of a cardiac pacemaker. IMPRESSION: Small bowel obstruction with a transition point in the left lower quadrant (201-66).
[2018-09-10] MEDS ORDERED: MORPHINE SULFATE 4 MG/ML SYRINGE IV PRN (23:34)
[2018-09-10] MEDS ORDERED: NALOXONE 0.4 MG/ML 1 ML VIAL IV PRN (23:34)
[2018-09-10] MEDS ORDERED: ONDANSETRON 4 MG/2 ML VIAL IVP PRN (23:34)
--- NOTE | 2018-09-10 23:34 | ED ---
Abdominal Pain HPI - General Chief Complaint: Abdominal Pain Stated Complaint: abd pain Time Seen by Provider: 09/10/18 21:04 Source: patient Mode of arrival: ambulatory - History of Present Illness Initial Comments: 78-year-old male patient presents to the emergency department today for evaluation of generalized abdominal pain and bloating. Patient states symptoms started earlier today. Patient states he is only able to eat half of his dinner. He denies any nausea or vomiting with this. Denies any fever or chills. Patient has had colon resection in the past and hernia surgery. He denies any difficulty with bowel movements. Denies any hematochezia or melena. He denies any chest pain or trouble breathing. Denies any history of similar symptoms. Patient denies any recent rash, shortness breath, chest pain, back pain, numbness, tingling, dizziness, weakness, hematuria, dysuria, urinary urgency, urinary frequency, headache, visual changes, or any other complaints. - Related Data Home Medications Medication Instructions Recorded Confirmed Finasteride [Proscar] 5 mg PO DAILY 10/03/14 09/10/18 HYDROcodone/APAP 10-325MG [[place] 1 tab PO Q4H PRN 07/14/15 09/10/18 10-325] Docusate [Colace] 100 mg PO DAILY 10/14/15 09/10/18 Apixaban [Eliquis] 5 mg PO BID 09/10/18 09/10/18 Cetirizine HCl [Zyrtec] 10 mg PO DAILY 09/10/18 09/10/18 Fish Oil/Dha/Epa [Fish Oil 1,200 1 cap PO DAILY 09/10/18 09/10/18 mg Fish Oil] Gabapentin [Neurontin] 100 mg PO TID 09/10/18 09/10/18 Levothyroxine Sodium [Synthroid] 50 mcg PO DAILY 09/10/18 09/10/18 Meclizine [Antivert] 12.5 mg PO DAILY 09/10/18 09/10/18 Meloxicam [Mobic] 7.5 mg PO DAILY 09/10/18 09/10/18 Metoprolol Tartrate [Lopressor] 25 mg PO BID 09/10/18 09/10/18 Multivitamins, Thera [Multivitamin 1 tab PO DAILY 09/10/18 09/10/18 (formulary)] Simvastatin 40 mg PO HS 09/10/18 09/10/18 Tamsulosin [Flomax] 0.8 mg PO DAILY 09/10/18 09/10/18 Triamterene-Hctz 37.5-25Mg 1 cap PO DAILY 09/10/18 09/10/18 [Dyazide 37.5-25 Capsule] Allergies Allergy/AdvReac Type Severity Reaction Status Date / Time No Known Allergies Allergy Verified 09/10/18 21:25 Review of Systems ROS Statement: Those systems with pertinent positive or pertinent negative responses have been documented in the HPI. ROS Other: All systems not noted in ROS Statement are negative. Past Medical History Past Medical History: Atrial Fibrillation, COPD, Hyperlipidemia, Hypertension, Prostate Disorder Additional Past Medical History / Comment(s): Meniere's disease, BPH, DJD, arthiritis, chronic bradycardia, and chronic back pain, diverticulitis. History of Any Multi-Drug Resistant Organisms: None Reported Date of last positivie culture/infection: 2001? MDRO Source:: KNEE Past Surgical History: Back Surgery, Bowel Resection, Hernia Repair, Orthopedic Surgery Additional Past Surgical History / Comment(s): 04/11/15 EP STUDY . Low back surgery with rods and screws. Left knee fluid drained off and patellar scraped. RIGHT inguinal & abdominal hernia repair. Past Anesthesia/Blood Transfusion Reactions: No Reported Reaction Additional Past Anesthesia/Blood Transfusion Reaction / Comment(s): Pt has never recieved blood. Past Psychological History: No Psychological Hx Reported Smoking Status: Former smoker Past Alcohol Use History: None Reported Past Drug Use History: None Reported - Past Family History Mother History Unknown: Yes Family Medical History: No Reported History Additional Family Medical History / Comment(s): passed at 79, unknown cause Father History Unknown: Yes Family Medical History: No Reported History Additional Family Medical History / Comment(s): passed at 81yrs. General Exam General appearance: alert, in no apparent distress, other (Physical well- developed, well-nourished elderly male patient in no acute distress. Vital signs upon presentation are temperature 97.8F, pulse 51, respirations 20, blood pressure 131/77, pulse ox 98% on room air.) Eye exam: Present: normal appearance, PERRL, EOMI. Absent: scleral icterus, conjunctival injection, periorbital swelling ENT exam: Present: normal exam, normal oropharynx, mucous membranes moist Respiratory exam: Present: normal lung sounds bilaterally. Absent: respiratory distress, wheezes, rales, rhonchi, stridor Cardiovascular Exam: Present: regular rate, normal rhythm, normal heart sounds. Absent: systolic murmur, diastolic murmur, rubs, gallop, clicks GI/Abdominal exam: Present: soft, distended, tenderness (Generalized tenderness), normal bowel sounds. Absent: guarding, rebound, rigid Neurological exam: Present: alert, oriented X3, CN II-XII intact Psychiatric exam: Present: normal affect, normal mood Skin exam: Present: warm, dry, intact, normal color. Absent: rash Course Vital Signs 09/10/18 09/10/18 09/10/18 20:57 22:12 23:00 Temperature 97.8 F Pulse Rate 51 L 56 L Respiratory 20 16 Rate Blood Pressure 131/77 126/76 127/85 O2 Sat by Pulse 98 97 100 Oximetry Medical Decision Making - Medical Decision Making 78 year-old male patient presents to the emergency department for evaluation of abdominal pain and distention. Physical examination did reveal mild abdominal distention with generalized tenderness. No guarding. Labs reviewed and showed evidence of mild periumbilical cytosis at 12.8 also showed evidence of renal failure which appears to be chronic for the patient. We will admit or small bowel obstruction. Patient is having no nausea or vomiting so we will hold NG tube at this time. Patient has had surgery with Dr. Ramírez in the past and requests her services, she will be consulted. Patient verbalizes understanding and agrees with this plan. - Lab Data Result diagrams: 09/10/18 21:45 09/10/18 21:45 Lab Results 09/10/18 09/10/18 09/10/18 Range/Units 21:45 21:45 21:45 WBC 12.6 H (3.8-10.6) k/uL RBC 4.91 (4.30-5.90) m/uL Hgb 14.9 (13.0-17.5) gm/dL Hct 46.6 (39.0-53.0) % MCV 94.8 (80.0-100.0) fL MCH 30.3 (25.0-35.0) pg MCHC 32.0 (31.0-37.0) g/dL RDW 13.3 (11.5-15.5) % Plt Count 198 (150-450) k/uL Neutrophils % 83 % Lymphocytes % 10 % Monocytes % 4 % Eosinophils % 1 % Basophils % 0 % Neutrophils # 10.5 H (1.3-7.7) k/uL Lymphocytes # 1.2 (1.0-4.8) k/uL Monocytes # 0.5 (0-1.0) k/uL Eosinophils # 0.2 (0-0.7) k/uL Basophils # 0.0 (0-0.2) k/uL Sodium 139 (137-145) mmol/L Potassium 3.9 (3.5-5.1) mmol/L Chloride 103 (98-107) mmol/L Carbon Dioxide 26 (22-30) mmol/L Anion Gap 10 mmol/L BUN 28 H (9-20) mg/dL Creatinine 1.40 H (0.66-1.25) mg/dL Est GFR (CKD-EPI)AfAm 56 (>60 ml/min/1.73 sqM) Est GFR (CKD-EPI)NonAf 49 (>60 ml/min/1.73 sqM) Glucose 105 H (74-99) mg/dL Calcium 9.5 (8.4-10.2) mg/dL Total Bilirubin 1.2 (0.2-1.3) mg/dL AST 29 (17-59) U/L ALT 23 (21-72) U/L Alkaline Phosphatase 78 (38-126) U/L Troponin I <0.012 (0.000-0.034) ng/mL Total Protein 7.3 (6.3-8.2) g/dL Albumin 4.4 (3.5-5.0) g/dL Amylase 71 (30-110) U/L Lipase 44 (23-300) U/L - Radiology Data Radiology results: report reviewed, image reviewed CT abdomen and pelvis without contrast was obtained. Report is reviewed in its entirety. Impression by Dr. Jarrett shows small bowel obstruction with a transition point in the left lower quadrant. Disposition Clinical Impression: Small bowel obstruction Disposition: ADMITTED IP TO THIS [facility] Condition: Serious Referrals: Sharron Ybarra III, MD [Primary Care Provider] - 1-2 days Decision to Admit Reason: Admit from EC Decision Date: 09/10/18 Decision Time: 23:33
[2018-09-10 23:53] LABS: Appearance,Urine Clear (Clear); Bilirubin,Urine Negative (Negative); Blood,Urine Negative (Negative); Color,Urine Yellow; Glucose,Urine (UA) Negative (Negative); Ketones,Urine Trace (Negative); Leukocyte Esterase,Urine Negative (Negative); Nitrite,Urine Negative (Negative); Protein,Urine Negative (Negative); Urobilinogen,Urine <2.0 mg/dL (<2.0)
[2018-09-11] MEDS: SODIUM CHLORIDE 0.9% 1,000 ML IV SCH ×2 (00:45→23:58)
--- NOTE | 2018-09-11 11:48 | P.GSCN ---
History of Present Illness Consult date: 09/11/18 History of present illness: The patient is a 78-year-old man who presented to the emergency department with abdominal pain. He noticed it about suppertime. His appetite decreased and he only had about half of his supper. he then became bloated and developed abdominal pain so came to the emergency department. One previous episode of incomplete bowel obstruction about 3 years ago which was treated non-surgically. Bowels have been moving normally. Passing small amounts of flatus. He continues to have some pain today. No nausea or vomiting. The patient has had a previous partial colectomy. I did a colonoscopy on him in 2016 which was unremarkable. Review of Systems All systems: negative Past Medical History Past Medical History: Atrial Fibrillation, COPD, Hyperlipidemia, Hypertension, Prostate Disorder Additional Past Medical History / Comment(s): Meniere's disease, BPH, DJD, arthiritis, chronic bradycardia, and chronic back pain, diverticulitis. History of Any Multi-Drug Resistant Organisms: None Reported Year Discovered:: 2001? MDRO Source:: KNEE Past Surgical History: Back Surgery, Bowel Resection, Hernia Repair, Orthopedic Surgery Additional Past Surgical History / Comment(s): 04/11/15 EP STUDY . Low back surgery with rods and screws. Left knee fluid drained off and patellar scraped. RIGHT inguinal & abdominal hernia repair. Past Anesthesia/Blood Transfusion Reactions: No Reported Reaction Additional Past Anesthesia/Blood Transfusion Reaction / Comm: Pt has never recieved blood. Past Psychological History: No Psychological Hx Reported Additional Psychological History / Comment(s): Pt resides with his spouse. He uses a cane or walker to ambulate. He drives. Smoking Status: Former smoker Past Alcohol Use History: None Reported Additional Past Alcohol Use History / Comment(s): Pt quit smoking in 1967. SMOKED FOR 4-6 YRS. PPD-1. Past Drug Use History: None Reported - Past Family History Mother History Unknown: Yes Family Medical History: No Reported History Additional Family Medical History / Comment(s): passed at 79, unknown cause Father History Unknown: Yes Family Medical History: No Reported History Additional Family Medical History / Comment(s): passed at 81yrs. Medications and Allergies Home Medications Medication Instructions Recorded Confirmed Type Finasteride [Proscar] 5 mg PO DAILY 10/03/14 09/11/18 History HYDROcodone/APAP 10-325MG [[place] 1 tab PO Q4H PRN 07/14/15 09/11/18 History 10-325] Docusate [Colace] 100 mg PO DAILY 10/14/15 09/11/18 History Apixaban [Eliquis] 5 mg PO BID 09/10/18 09/11/18 History Cetirizine HCl [Zyrtec] 10 mg PO DAILY 09/10/18 09/11/18 History Fish Oil/Dha/Epa [Fish Oil 1,200 1 cap PO DAILY 09/10/18 09/11/18 History mg Fish Oil] Gabapentin [Neurontin] 100 mg PO TID 09/10/18 09/11/18 History Levothyroxine Sodium [Synthroid] 50 mcg PO DAILY 09/10/18 09/11/18 History Meclizine [Antivert] 12.5 mg PO DAILY 09/10/18 09/11/18 History Meloxicam [Mobic] 7.5 mg PO DAILY 09/10/18 09/11/18 History Metoprolol Tartrate [Lopressor] 25 mg PO BID 09/10/18 09/11/18 History Multivitamins, Thera [Multivitamin 1 tab PO DAILY 09/10/18 09/11/18 History (formulary)] Simvastatin 40 mg PO HS 09/10/18 09/11/18 History Tamsulosin [Flomax] 0.8 mg PO DAILY 09/10/18 09/11/18 History Triamterene-Hctz 37.5-25Mg 1 cap PO DAILY 09/10/18 09/11/18 History [Dyazide 37.5-25 Capsule] Allergies Allergy/AdvReac Type Severity Reaction Status Date / Time No Known Allergies Allergy Verified 09/10/18 21:25 Surgical - Exam Osteopathic Statement: *. No significant issues noted on an osteopathic structural exam other than those noted in the History and Physical/Consult. Vital Signs Temp Pulse Resp BP Pulse Ox 97.8 F 51 L 20 131/77 98 09/10/18 20:57 09/10/18 20:57 09/10/18 20:57 09/10/18 20:57 09/10/18 20:57 - General well developed, well nourished, no distress - Eyes normal ocular movement - ENT normal mucosa - Neck trachea midline - Respiratory normal expansion, clear to auscultation - Cardiovascular Rhythm: regular - Abdomen Abdomen: soft, tender (mild tenderness in the central abdomen), no guarding, no rigid, no rebound, distended (softly distended with mild tympany to percussion) Results - Labs 09/10/18 21:45 09/10/18 21:45 Abnormal Lab Results - Last 24 Hours (Table) 09/10/18 09/10/18 09/10/18 Range/Units 21:45 21:45 23:35 WBC 12.6 H (3.8-10.6) k/uL Neutrophils # 10.5 H (1.3-7.7) k/uL BUN 28 H (9-20) mg/dL Creatinine 1.40 H (0.66-1.25) mg/dL Glucose 105 H (74-99) mg/dL Urine Ketones Trace H (Negative) Diabetes panel 09/10/18 Range/Units 21:45 Sodium 139 (137-145) mmol/L Potassium 3.9 (3.5-5.1) mmol/L Chloride 103 (98-107) mmol/L Carbon Dioxide 26 (22-30) mmol/L BUN 28 H (9-20) mg/dL Creatinine 1.40 H (0.66-1.25) mg/dL Glucose 105 H (74-99) mg/dL Calcium 9.5 (8.4-10.2) mg/dL AST 29 (17-59) U/L ALT 23 (21-72) U/L Alkaline Phosphatase 78 (38-126) U/L Total Protein 7.3 (6.3-8.2) g/dL Albumin 4.4 (3.5-5.0) g/dL Calcium panel 09/10/18 Range/Units 21:45 Calcium 9.5 (8.4-10.2) mg/dL Albumin 4.4 (3.5-5.0) g/dL Pituitary panel 09/10/18 Range/Units 21:45 Sodium 139 (137-145) mmol/L Potassium 3.9 (3.5-5.1) mmol/L Chloride 103 (98-107) mmol/L Carbon Dioxide 26 (22-30) mmol/L BUN 28 H (9-20) mg/dL Creatinine 1.40 H (0.66-1.25) mg/dL Glucose 105 H (74-99) mg/dL Calcium 9.5 (8.4-10.2) mg/dL Adrenal panel 09/10/18 Range/Units 21:45 Sodium 139 (137-145) mmol/L Potassium 3.9 (3.5-5.1) mmol/L Chloride 103 (98-107) mmol/L Carbon Dioxide 26 (22-30) mmol/L BUN 28 H (9-20) mg/dL Creatinine 1.40 H (0.66-1.25) mg/dL Glucose 105 H (74-99) mg/dL Calcium 9.5 (8.4-10.2) mg/dL Total Bilirubin 1.2 (0.2-1.3) mg/dL AST 29 (17-59) U/L ALT 23 (21-72) U/L Alkaline Phosphatase 78 (38-126) U/L Total Protein 7.3 (6.3-8.2) g/dL Albumin 4.4 (3.5-5.0) g/dL - Imaging CT scan - abdomen: report reviewed, image reviewed (some mildly dilated loops of small bowel, previous hernia repair) Assessment and Plan (1) Abdominal pain Current Visit: Yes Status: Acute Code(s): R10.9 - UNSPECIFIED ABDOMINAL PAIN SNOMED Code(s): 83965571 (2) Small bowel obstruction Current Visit: Yes Status: Acute Code(s): K56.69 - OTHER INTESTINAL OBSTRUCTION * DO NOT USE * SNOMED Code(s): 630592318 Plan: The Patient will be treated conservatively. Hydrate, pain control, bowel rest. Serial exams. His previous episode responded to medical therapy. I will reevaluate him later today. Further recommendations to follow.
--- NOTE | 2018-09-11 14:05 | P.HPIM ---
History of Present Illness 78-year-old came in the emergency department with complaints of diffuse abdominal pain moderate bowel aching nausea vomiting started yesterday multiple episodes, patient had a CAT scan which showed partial small bowel obstruction with a transition point patient had a previous colectomy in the past. Patient was started on morphine which will risk and urine patient will be started on Tylenol for pain. Patient nausea is better because of which patient doesn't have an NG tube conservative measures at this time. Patient was bit constipated did not have bowel movement for last couple days Review of Systems REVIEW OF SYSTEMS: CONSTITUTIONAL: No fever, no malaise, no fatigue. HEENT: No recent visual problems or hearing problems. Denied any sore throat. CARDIOVASCULAR: No chest pain, orthopnea, PND, no palpitations, no syncope. PULMONARY: No shortness of breath, no cough, no hemoptysis. GASTROINTESTINAL: As mentioned in HPI NEUROLOGICAL: No headaches, no weakness, no numbness. HEMATOLOGICAL: Denies any bleeding or petechiae. GENITOURINARY: Denies any burning micturition, frequency, or urgency. MUSCULOSKELETAL/RHEUMATOLOGICAL: Denies any joint pain, swelling, or any muscle pain. ENDOCRINE: Denies any polyuria or polydipsia. The rest of the 14-point review of systems is negative. Past Medical History Past Medical History: Atrial Fibrillation, COPD, Hyperlipidemia, Hypertension, Prostate Disorder Additional Past Medical History / Comment(s): Meniere's disease, BPH, DJD, arthiritis, chronic bradycardia, and chronic back pain, diverticulitis. History of Any Multi-Drug Resistant Organisms: None Reported Date of last positivie culture/infection: 2001? MDRO Source:: KNEE Past Surgical History: Back Surgery, Bowel Resection, Hernia Repair, Orthopedic Surgery Additional Past Surgical History / Comment(s): 04/11/15 EP STUDY . Low back surgery with rods and screws. Left knee fluid drained off and patellar scraped. RIGHT inguinal & abdominal hernia repair. Past Anesthesia/Blood Transfusion Reactions: No Reported Reaction Additional Past Anesthesia/Blood Transfusion Reaction / Comment(s): Pt has never recieved blood. Past Psychological History: No Psychological Hx Reported Additional Psychological History / Comment(s): Pt resides with his spouse. He uses a cane or walker to ambulate. He drives. Smoking Status: Former smoker Past Alcohol Use History: None Reported Additional Past Alcohol Use History / Comment(s): Pt quit smoking in 1967. SMOKED FOR 4-6 YRS. PPD-1. Past Drug Use History: None Reported - Past Family History Mother History Unknown: Yes Family Medical History: No Reported History Additional Family Medical History / Comment(s): passed at 79, unknown cause Father History Unknown: Yes Family Medical History: No Reported History Additional Family Medical History / Comment(s): passed at 81yrs. Medications and Allergies Home Medications Medication Instructions Recorded Confirmed Type Finasteride [Proscar] 5 mg PO DAILY 10/03/14 09/11/18 History HYDROcodone/APAP 10-325MG [[place] 1 tab PO Q4H PRN 07/14/15 09/11/18 History 10-325] Docusate [Colace] 100 mg PO DAILY 10/14/15 09/11/18 History Apixaban [Eliquis] 5 mg PO BID 09/10/18 09/11/18 History Cetirizine HCl [Zyrtec] 10 mg PO DAILY 09/10/18 09/11/18 History Fish Oil/Dha/Epa [Fish Oil 1,200 1 cap PO DAILY 09/10/18 09/11/18 History mg Fish Oil] Gabapentin [Neurontin] 100 mg PO TID 09/10/18 09/11/18 History Levothyroxine Sodium [Synthroid] 50 mcg PO DAILY 09/10/18 09/11/18 History Meclizine [Antivert] 12.5 mg PO DAILY 09/10/18 09/11/18 History Meloxicam [Mobic] 7.5 mg PO DAILY 09/10/18 09/11/18 History Metoprolol Tartrate [Lopressor] 25 mg PO BID 09/10/18 09/11/18 History Multivitamins, Thera [Multivitamin 1 tab PO DAILY 09/10/18 09/11/18 History (formulary)] Simvastatin 40 mg PO HS 09/10/18 09/11/18 History Tamsulosin [Flomax] 0.8 mg PO DAILY 09/10/18 09/11/18 History Triamterene-Hctz 37.5-25Mg 1 cap PO DAILY 09/10/18 09/11/18 History [Dyazide 37.5-25 Capsule] Allergies Allergy/AdvReac Type Severity Reaction Status Date / Time No Known Allergies Allergy Verified 09/10/18 21:25 Physical Exam Vitals: Vital Signs Temp Pulse Pulse Resp BP BP Pulse Ox 09/11/18 04:30 97.9 F 72 20 113/69 96 09/11/18 01:15 97.9 F 72 22 112/70 96 09/11/18 00:53 98.4 F 09/11/18 00:46 68 16 125/71 95 09/10/18 23:00 56 L 16 127/85 100 09/10/18 22:12 126/76 97 09/10/18 20:57 97.8 F 51 L 20 131/77 98 Intake and Output 09/10/18 09/11/18 09/11/18 22:59 06:59 14:59 Other: # Voids 0 Weight 97.522 kg 98.3 kg PHYSICAL EXAMINATION: GENERAL: The patient is alert and oriented x3, not in any acute distress. Well developed, well nourished. HEENT: Pupils are round and equally reacting to light. EOMI. No scleral icterus. No conjunctival pallor. Normocephalic, atraumatic. No pharyngeal erythema. No thyromegaly. CARDIOVASCULAR: S1 and S2 present. No murmurs, rubs, or gallops. PULMONARY: Chest is clear to auscultation, no wheezing or crackles. ABDOMEN: Distended no rebound or rigidity minimal tenderness, absent bowel sounds MUSCULOSKELETAL: No joint swelling or deformity. EXTREMITIES: No cyanosis, clubbing, or pedal edema. NEUROLOGICAL: Gross neurological examination did not reveal any focal deficits. SKIN: No rashes. Results CBC & Chem 7: 09/10/18 21:45 09/10/18 21:45 Labs: Abnormal Lab Results - Last 24 Hours (Table) 09/10/18 09/10/18 09/10/18 Range/Units 21:45 21:45 23:35 WBC 12.6 H (3.8-10.6) k/uL Neutrophils # 10.5 H (1.3-7.7) k/uL BUN 28 H (9-20) mg/dL Creatinine 1.40 H (0.66-1.25) mg/dL Glucose 105 H (74-99) mg/dL Urine Ketones Trace H (Negative) Thrombosis Risk Factor Assmnt - Choose All That Apply Any of the Below Risk Factors Present?: Yes Each Factor Represents 1 point: Abnormal pulmonary function (COPD), Obesity (BMI >25) Other Risk Factors: Yes Each Risk Factor Represents 3 Points: Age 75 years or older Other congenital or acquired thrombophilia - If yes, enter type in comment: No Thrombosis Risk Factor Assessment Total Risk Factor Score: 5 Thrombosis Risk Factor Assessment Level: High Risk Assessment and Plan Plan: -Partial small bowel obstruction: Conservative measures with IV fluids bowel rest, general surgery consultation. -Acute renal failure: Probably secondary to nausea vomiting. Patient had a creatinine of 0.9 in July 2016 and urinary 2088 was 1.3. Continue with IV fluids recent creatinine tomorrow. Possibility of chronic kidney disease cannot be ruled out although I cannot stage at this time. Nonsteroidal anti- inflammatories and the diuretics will be held -Leukocytosis reactive no evidence of infection -Benign prostatic hypertrophy -Hypertension Dyazide is probably not appropriate because for infection and this will be held -Hyperlipidemia -Hypothyroidism continue with levothyroxine whenever he can tolerate continue with metoprolol -Proximal A. fib presently presently sinus rhythm will be resumed on Eliquis he can take it orally
[2018-09-11] MEDS: GABAPENTIN 100 MG CAP PO SCH ×2 (16:26→20:16)
[2018-09-11] MEDS: ACETAMINOPHEN IV (For NPO) 1,000 MG in EMPTY BAG 1 BAG IVPB SCH ×2 (16:28→23:58)
--- NOTE | 2018-09-11 17:38 | P.PN ---
Progress Note - Text Progress Note Date: 09/11/18 The patient feels about the same. He did have a shower today. Has been passing some flatus. Denies nausea, vomiting or heartburn. Abdomen softly distended A: small bowel obstruction, history of same in 2016. P: Discussed with family and patient. Will recheck in am. Encourage ambulation tonight. Repeat x-ray in am. No recommendation for NG at present time. Further recommendations to follow.
[2018-09-11] MEDS: METOPROLOL TARTRATE 25 MG TAB PO SCH (20:15)
[2018-09-11] MEDS: APIXABAN 5 MG TAB PO SCH (20:15)
[2018-09-11] MEDS: ATORVASTATIN 20 MG TAB PO SCH (20:15)
[2018-09-12] MEDS: LEVOTHYROXINE 50 MCG TAB PO SCH (05:36)
[2018-09-12] MEDS: ACETAMINOPHEN IV (For NPO) 1,000 MG in EMPTY BAG 1 BAG IVPB SCH ×2 (05:36→11:45)
[2018-09-12] MEDS: APIXABAN 5 MG TAB PO SCH ×2 (07:54→20:27)
[2018-09-12] MEDS: FINASTERIDE 5 MG TAB PO SCH (07:56)
[2018-09-12] MEDS: METOPROLOL TARTRATE 25 MG TAB PO SCH ×2 (07:56→20:27)
[2018-09-12] MEDS: GABAPENTIN 100 MG CAP PO SCH ×3 (07:56→20:27)
[2018-09-12] MEDS: TAMSULOSIN 0.4 MG CAP.ER.24H PO SCH (07:56)
--- NOTE | 2018-09-12 08:41 | XR ---
EXAMINATION TYPE: XR abdomen 2V DATE OF EXAM: 09/12/2018 CLINICAL HISTORY: Pain and distention. TECHNIQUE: Supine and upright views of the abdomen are obtained. COMPARISON: CT abdomen and pelvis from 2 days ago FINDINGS: Persistent gaseous dilated small bowel loops throughout the right mid central abdomen. Feca l material is seen in slightly prominent colonic loop in the left lower quadrant . There are gas-fill ed nondilated small bowel loops of the right lower quadrant and upper pelvis. Numerous coils from a v entral wall hernia repair surgery are redemonstrated over the lower abdomen and pelvis. Extensive neli gical changes to the lumbar spine is redemonstrated. Elevated right hemidiaphragm with colonic interp osition is again seen. There is cardiomegaly with dual-lead pacemaker and persistent patchy left basi lar scarring and/or atelectasis. IMPRESSION: Findings consistent with a mid to distal small bowel obstruction remain present without s ignificant change or improvement.
[2018-09-12 09:20] LABS: HCT 42.4 % (39.0-53.0); HGB 13.8 gm/dL (13.0-17.5); MCH 31.3 pg (25.0-35.0); MCHC 32.5 g/dL (31.0-37.0); MCV 96.5 fL (80.0-100.0); Platelet Count 189 k/uL (150-450); RDW 13.1 % (11.5-15.5); WBC 8.5 k/uL (3.8-10.6)
[2018-09-12 09:33] LABS: Calcium 8.2 mg/dL (8.4-10.2); Potassium 3.9 mmol/L (3.5-5.1)
[2018-09-12] MEDS: SODIUM CHLORIDE 0.9% 1,000 ML IV SCH ×2 (11:46→20:41)
--- NOTE | 2018-09-12 14:03 | P.PN ---
Subjective Progress Note Date: 09/12/18 The patient was admitted with abdominal pain and concern for small bowel obstruction. He feels better today. He had 2 bowel movements. He's been passing flatus today. His abdomen feels better. No nausea or vomiting. He's been taking some clear liquids without a problem. Objective - Vital Signs Vital signs: Vital Signs Temp 98.2 F 09/12/18 05:00 Pulse 66 09/12/18 05:00 Resp 18 09/12/18 08:00 BP 100/65 09/12/18 05:00 Pulse Ox 93 L 09/12/18 05:00 Intake & Output 09/11/18 09/12/18 09/12/18 18:59 06:59 18:59 Output Total 400 Balance -400 Output: Urine 400 Other: Voiding Method Urinal Urinal # Voids 1 1 # Bowel Movements 1 - Constitutional General appearance: Present: cooperative, no acute distress - Respiratory Respiratory: bilateral: CTA - Cardiovascular Rhythm: regular - Gastrointestinal General gastrointestinal: Present: decreased bowel sounds, soft (Softly distended), tenderness (Primary minimal tenderness, improved from yesterday) - Labs CBC & Chem 7: 09/12/18 08:54 09/12/18 08:54 Labs: Abnormal Lab Results - Last 24 Hours (Table) 09/12/18 Range/Units 08:54 Chloride 109 H (98-107) mmol/L Carbon Dioxide 21 L (22-30) mmol/L BUN 24 H (9-20) mg/dL Glucose 69 L (74-99) mg/dL Calcium 8.2 L (8.4-10.2) mg/dL - Imaging and Cardiology Abdominal x-ray: report reviewed, image reviewed (No significant improvement on his abdominal series) Assessment and Plan (1) Abdominal pain Current Visit: Yes Status: Acute Code(s): R10.9 - UNSPECIFIED ABDOMINAL PAIN SNOMED Code(s): 28861716 (2) Small bowel obstruction Current Visit: Yes Status: Acute Code(s): K56.69 - OTHER INTESTINAL OBSTRUCTION * DO NOT USE * SNOMED Code(s): 372645006 Plan: The patient's acute abdominal series doesn't appear to have changed however clinically he is improved. We'll start him on clear liquids. If he is able to tolerate that advance him to full liquids for breakfast. He is instructed if he develops recurrent pain, nausea or vomiting, increased distention he should let his nurse know.
--- NOTE | 2018-09-12 16:39 | P.PN ---
Subjective Progress Note Date: 09/12/18 Principal diagnosis: This is a 78-year-old male that came into the emergency department with diffuse abdominal pain and admitted for partial small bowel obstruction. Patient has be en passing gas, burping, and had 2 bowel movements that were formed this morning. Patient states that he is feeling a little better but is still having some pain in his back. Patient denies any difficulty in urination. Patient denies any shortness of breath, chest pain, palpitations, or fever. Patient denies any nausea or vomiting at this time and states that he is hungry. Patient states that he was told by another doctor they would try clear liquid diet sometime today and advance as tolerated. Patient is being closely monitored Objective - Vital Signs Vital signs: Vital Signs Temp 97.8 F 09/12/18 13:03 Pulse 78 09/12/18 13:03 Resp 18 09/12/18 15:20 BP 102/67 09/12/18 13:03 Pulse Ox 93 L 09/12/18 13:03 Intake & Output 09/11/18 09/12/18 09/12/18 18:59 06:59 18:59 Output Total 400 Balance -400 Output: Urine 400 Other: Voiding Method Urinal Urinal # Voids 1 2 # Bowel Movements 1 1 - Exam Gen: This is a 78-year-old male who is resting in bed in no acute distress. Vital signs are stable HEENT: Head is atraumatic, normocephalic. Pupils equal, round. Sclerae is anicteric. NECK: Supple. No JVD. No lymphadenopathy. No thyromegaly. LUNGS: Clear to auscultation. No wheezes or rhonchi. No intercostal re tractions. HEART: Regular rate and rhythm. No murmur. ABDOMEN: Soft. Bowel sounds are present and hyperactive. No masses. Mild tenderness upon palpation.. EXTREMITIES: No pedal edema. No calf tenderness. NEUROLOGICAL: Patient is awake, alert and oriented x3. Cranial nerves 2 through 12 are grossly intact. - Labs CBC & Chem 7: 09/12/18 08:54 09/12/18 08:54 Labs: Abnormal Lab Results - Last 24 Hours (Table) 09/12/18 Range/Units 08:54 Chloride 109 H (98-107) mmol/L Carbon Dioxide 21 L (22-30) mmol/L BUN 24 H (9-20) mg/dL Glucose 69 L (74-99) mg/dL Calcium 8.2 L (8.4-10.2) mg/dL Assessment and Plan Assessment: Partial small bowel obstruction: Conservative measures with IV fluids, bowel rest, general surgery consultation. Acute renal failure: Probably secondary to nausea and vomiting. Continue with IV fluids and we'll continue to monitor electrolytes. Leukocytosis reactive with no evidence of infection Benign prostatic hypertrophy Hypertension. Dyazide will be held Hyperlipidemia Hypothyroidism Atrial fibrillation Recommendations and discussion: Continue current medications and symptomatic management. Patient is actively having bowel movements and passing gas. We'll continue to monitor vital signs and labs. Trialing clear liquid diet and will advance as tolerated per surgery. We'll continue to closely monitor. Guarded prognosis at this time to further recommendations to follow. Probable discharge in the next 24-48 hours.
[2018-09-12] MEDS: ATORVASTATIN 20 MG TAB PO SCH (20:26)
[2018-09-13] MEDS: LEVOTHYROXINE 50 MCG TAB PO SCH (05:44)
[2018-09-13] MEDS: TAMSULOSIN 0.4 MG CAP.ER.24H PO SCH (08:14)
[2018-09-13] MEDS: FINASTERIDE 5 MG TAB PO SCH (08:14)
[2018-09-13] MEDS: GABAPENTIN 100 MG CAP PO SCH ×2 (08:14→16:10)
[2018-09-13] MEDS: METOPROLOL TARTRATE 25 MG TAB PO SCH (08:14)
[2018-09-13] MEDS: APIXABAN 5 MG TAB PO SCH (08:14)
[2018-09-13] MEDS: SODIUM CHLORIDE 0.9% 1,000 ML IV SCH (11:14)
[2018-09-13 11:36] LABS: Basophils % (A) 1 %; Eosinophils # (A) 0.2 k/uL (0-0.7); Eosinophils % (A) 3 %; HCT 41.1 % (39.0-53.0); HGB 13.6 gm/dL (13.0-17.5); Lymphocytes % (A) 15 %; MCH 31.8 pg (25.0-35.0); MCV 96.2 fL (80.0-100.0); Mean Platelet Volume 7.4; Monocytes # (A) 0.4 k/uL (0-1.0); Monocytes % (A) 6 %; Neutrophils # (A) 4.7 k/uL (1.3-7.7); Neutrophils % (A) 73 %; Platelet Count 168 k/uL (150-450); RBC 4.28 m/uL (4.30-5.90); RDW 13.2 % (11.5-15.5); WBC 6.5 k/uL (3.8-10.6)
[2018-09-13 15:11] VITALS: BP 116/75; PULSE 67; RESP 16; TEMP 97.9
--- NOTE | 2018-09-13 15:45 | P.DS ---
Providers Date of admission: 09/10/18 23:51 Attending physician: Rizwana Carr Consults: 09/10/18 23:35 Consult Physician Routine Consulting Provider: Megan Ramírez Consult Reason/Comments: Small Bowel Obstruction Do you want consulting provider notified?: Yes Primary care physician: Sharron Byrne [facility] Course: Patient was admitted for partial small bowel obstruction patient had Bowel movements yesterday patient is passing gas patient does have good bowel sounds today we'll obtain abdominal x-ray today that looks okay and if her general surgery clears him patient will be discharged today patient doesn't have any nausea vomiting patient is a tolerating a full liquid diet well will advance it to soft diet. Patient is on opiates at home which will be discontinued upon discharge patient also takes nonsteroidal anti-inflammatories for pain and his creatinine on admission is on 0.4 although that improved now patient can resume this nonsteroidal and anti-inflammatory as an outpatient but for now we'll discharge him on Tylenol. The pressure is low when he came in hydrochlorothiazide will be discontinued. Patient blood pressure presently is 1 16 /75 and has not been taking this medication for last 3-4 days PHYSICAL EXAMINATION: GENERAL: The patient is alert and oriented x3, not in any acute distress. Well developed, well nourished. HEENT: Pupils are round and equally reacting to light. EOMI. No scleral icterus. No conjunctival pallor. Normocephalic, atraumatic. No pharyngeal erythema. No thyromegaly. CARDIOVASCULAR: S1 and S2 present. No murmurs, rubs, or gallops. PULMONARY: Chest is clear to auscultation, no wheezing or crackles. ABDOMEN: Soft, nontender, nondistended, normoactive bowel sounds. No palpable organomegaly. MUSCULOSKELETAL: No joint swelling or deformity. EXTREMITIES: No cyanosis, clubbing, or pedal edema. NEUROLOGICAL: Gross neurological examination did not reveal any focal deficits. SKIN: No rashes. For other chronic medical problems hospitalization course please refer to my dictation from yesterday Patient Condition at Discharge: Serious Plan - Discharge Summary Discharge Rx Participant: No New Discharge Prescriptions: New Acetaminophen Tab [Tylenol Tab] 650 mg PO Q4H PRN #30 tablet PRN Reason: Pain Continue Finasteride [Proscar] 5 mg PO DAILY Docusate [Colace] 100 mg PO DAILY Levothyroxine Sodium [Synthroid] 50 mcg PO DAILY Simvastatin 40 mg PO HS Tamsulosin [Flomax] 0.8 mg PO DAILY Metoprolol Tartrate [Lopressor] 25 mg PO BID Meclizine [Antivert] 12.5 mg PO DAILY Gabapentin [Neurontin] 100 mg PO TID Apixaban [Eliquis] 5 mg PO BID Multivitamins, Thera [Multivitamin (formulary)] 1 tab PO DAILY Fish Oil/Dha/Epa [Fish Oil 1,200 mg Fish Oil] 1 cap PO DAILY Discontinued HYDROcodone/APAP 10-325MG [[place] 10-325] 1 tab PO Q4H PRN PRN Reason: Pain Meloxicam [Mobic] 7.5 mg PO DAILY Triamterene-Hctz 37.5-25Mg [Dyazide 37.5-25 Capsule] 1 cap PO DAILY Cetirizine HCl [Zyrtec] 10 mg PO DAILY Discharge Medication List Finasteride [Proscar] 5 mg PO DAILY 10/03/14 [History] Docusate [Colace] 100 mg PO DAILY 10/14/15 [History] Apixaban [Eliquis] 5 mg PO BID 09/10/18 [History] Fish Oil/Dha/Epa [Fish Oil 1,200 mg Fish Oil] 1 cap PO DAILY 09/10/18 [History] Gabapentin [Neurontin] 100 mg PO TID 09/10/18 [History] Levothyroxine Sodium [Synthroid] 50 mcg PO DAILY 09/10/18 [History] Meclizine [Antivert] 12.5 mg PO DAILY 09/10/18 [History] Metoprolol Tartrate [Lopressor] 25 mg PO BID 09/10/18 [History] Multivitamins, Thera [Multivitamin (formulary)] 1 tab PO DAILY 09/10/18 [History] Simvastatin 40 mg PO HS 09/10/18 [History] Tamsulosin [Flomax] 0.8 mg PO DAILY 09/10/18 [History] Acetaminophen Tab [Tylenol Tab] 650 mg PO Q4H PRN #30 tablet 09/13/18 [Rx] Follow up Appointment(s)/Referral(s): Sharron Ybarra III, MD [Primary Care Provider] - 3 Days
--- NOTE | 2018-09-13 16:02 | XR ---
EXAMINATION TYPE: XR abdomen 2V DATE OF EXAM: 09/13/2018 COMPARISON: 09/12/2018 INDICATION: Small bowel obstruction, history of bowel resection TECHNIQUE: Single view abdomen FINDINGS: Nonspecific bowel gas is present. Small bowel loops containing air are somewhat prominent in the righ t upper quadrant. There is an air-fluid level within the left midabdomen. Psoas margins are normal. No organomegaly is present. IMPRESSION: 1. Nonspecific abdomen. Previous multiple dilated small bowel loops have improved. Couple of prominen t small bowel loops remain present within the midabdomen. Continued follow-up is recommended
--- NOTE | 2018-09-13 16:08 | P.PN ---
Subjective Progress Note Date: 09/13/18 Having multiple BM. tolerating diet. No pain No NV Objective - Vital Signs Vital signs: Vital Signs Temp 97.9 F 09/13/18 15:00 Pulse 67 09/13/18 15:00 Resp 16 09/13/18 15:00 BP 116/75 09/13/18 15:00 Pulse Ox 95 09/13/18 15:00 Intake & Output 09/12/18 09/13/18 09/13/18 18:59 06:59 18:59 Intake Total 013 849 1052 Balance 427 454 7606 Intake: IV 600 Sodium Chloride 0.9% 1, 600 000 ml @ 75 mls/hr IV . [id number] Rx#:[id number] Oral 526 350 520 Other: Voiding Method Urinal # Voids 1 2 # Bowel Movements 1 2 - Constitutional General appearance: Present: cooperative - Respiratory Details: nonlabored - Cardiovascular Rhythm: regular - Gastrointestinal Gastrointestinal Comment(s): S/NT/ND - Psychiatric Psychiatric: Present: A&O x's 3 - Labs CBC & Chem 7: 09/13/18 11:12 09/12/18 08:54 Labs: Abnormal Lab Results - Last 24 Hours (Table) 09/13/18 Range/Units 11:12 RBC 4.28 L (4.30-5.90) m/uL Assessment and Plan Assessment: SBO resolved Plan: SBO is resolved. Patient is stable from surgical standpoint for DC.
== END 2018-09-13 16:51 | disposition home or self-care (01) | DRG 389 ==
LOC: EC 20:54 → 4MS4W 23:51
PROVIDERS: ADMIT Hospitalist; ATTEND Hospitalist
DX: K56.600 Partial intestinal obstruction, unspecified as to cause (principal); N17.9 Acute kidney failure, unspecified; J44.9 Chronic obstructive pulmonary disease, unspecified; I48.91 Unspecified atrial fibrillation; I10 Essential (primary) hypertension; E78.5 Hyperlipidemia, unspecified; D72.829 Elevated white blood cell count, unspecified; E03.9 Hypothyroidism, unspecified; M19.90 Unspecified osteoarthritis, unspecified site; M54.9 Dorsalgia, unspecified; G89.29 Other chronic pain; H81.09 Meniere's disease, unspecified ear; N40.0 Benign prostatic hyperplasia without lower urinary tract symptoms; Z79.01 Long term (current) use of anticoagulants; Z79.1 Long term (current) use of non-steroidal anti-inflammatories (NSAID); Z79.890 Hormone replacement therapy; Z79.899 Other long term (current) drug therapy; Z87.891 Personal history of nicotine dependence; Z90.49 Acquired absence of other specified parts of digestive tract; Z98.890 Other specified postprocedural states; Z87.19 Personal history of other diseases of the digestive system
CPT/HCPCS: 36415; 74019; 74176; 80048; 80053; 81003; 82150; 83690; 84484; 85025; 85027; 93005; 96361; 96374; 96375; 99285

== ENCOUNTER 2018-09-16 19:01 | Emergency (ER) | payer MEDICARE, OTHER ==
[2018-09-16 19:48] VITALS: RESP 18; TEMP 98
[2018-09-16 20:37] LABS: Appearance,Urine Cloudy (Clear); Bilirubin,Urine Negative (Negative); Blood,Urine Large (Negative); Color,Urine Dark Brown; Glucose,Urine (UA) Negative (Negative); Ketones,Urine Trace (Negative); Leukocyte Esterase,Urine Small (Negative); Mucus,Urine Occasional /hpf; Nitrite,Urine Negative (Negative); Protein,Urine 2+ (Negative); RBC,Urine >182 /hpf (0-5); Specific Gravity,Urine 1.023 (1.001-1.035); Urobilinogen,Urine <2.0 mg/dL (<2.0)
[2018-09-16 21:15] LABS: Basophils % (A) 0 %; Eosinophils # (A) 0.3 k/uL (0-0.7); Eosinophils % (A) 4 %; HCT 39.1 % (39.0-53.0); HGB 12.7 gm/dL (13.0-17.5); Lymphocytes # (A) 1.8 k/uL (1.0-4.8); Lymphocytes % (A) 29 %; MCH 31.3 pg (25.0-35.0); MCHC 32.4 g/dL (31.0-37.0); MCV 96.4 fL (80.0-100.0); Mean Platelet Volume 7.7; Monocytes # (A) 0.4 k/uL (0-1.0); Monocytes % (A) 7 %; Neutrophils # (A) 3.5 k/uL (1.3-7.7); Neutrophils % (A) 57 %; Platelet Count 177 k/uL (150-450); RBC 4.06 m/uL (4.30-5.90); RDW 13.3 % (11.5-15.5); WBC 6.1 k/uL (3.8-10.6)
[2018-09-16 21:20] LABS: Albumin 3.7 g/dL (3.5-5.0); Calcium 8.6 mg/dL (8.4-10.2); Total Bilirubin 0.9 mg/dL (0.2-1.3); Total Protein 6.4 g/dL (6.3-8.2)
[2018-09-16 21:36] LABS: Potassium 4.3 mmol/L (3.5-5.1)
[2018-09-16 22:09] LABS: INR 1.1 (<1.2); Partial Thromboplastin Time 29.6 sec (22.0-30.0); Prothrombin Time 11.4 sec (9.0-12.0)
--- NOTE | 2018-09-16 22:23 | ED ---
General Adult HPI - General Chief complaint: Urogenital Stated complaint: hematuria Time Seen by Provider: 09/16/18 20:00 Source: patient, RN notes reviewed, old records reviewed Mode of arrival: ambulatory Limitations: no limitations - History of Present Illness Initial comments: 78-year-old male patient with past history of atrial fibrillation, anticoagu lated on eliquis, with history of benign prostate hypertrophy presents to ED for painless hematuria. Patient reports this began today. Patient for 2 episodes of hematuria. Patient denies any other complaints at this time. Denies any other sites of bleeding. As a chest measures with abdominal pain, nausea vomiting or diarrhea. Systemic: Pt denies fatigue, fever/chills, rash. Pt denies weakness, night sweats, weight loss. Neuro: Pt denies headache, visual disturbances, syncope or pre-syncope. HEENT: Pt denies ocular discharge or irritation, otalgia, rhinorrhea, pharyngitis or notable lymphadenopathy. Cardiopulmonary: Pt denies chest pain, SOB, heart palpitations, dyspnea on exertion. Abdominal/GI: Pt denies abdominal pain, n/v/d. : Pt denies dysuria, burning w/ urination, frequency/urgency. Denies new onset urinary or bowel incontinence. MSK: Pt denies myalgia, loss of strength or function in extremities. Neuro: Pt denies new onset weakness, paresthesias. - Related Data Home Medications Medication Instructions Recorded Confirmed Finasteride [Proscar] 5 mg PO DAILY 10/03/14 09/16/18 Docusate [Colace] 100 mg PO DAILY 10/14/15 09/16/18 Apixaban [Eliquis] 5 mg PO BID 09/10/18 09/16/18 Fish Oil/Dha/Epa [Fish Oil 1,200 1 cap PO DAILY 09/10/18 09/16/18 mg Fish Oil] Gabapentin [Neurontin] 100 mg PO TID 09/10/18 09/16/18 Levothyroxine Sodium [Synthroid] 50 mcg PO DAILY 09/10/18 09/16/18 Meclizine [Antivert] 12.5 mg PO DAILY 09/10/18 09/16/18 Metoprolol Tartrate [Lopressor] 25 mg PO BID 09/10/18 09/16/18 Multivitamins, Thera [Multivitamin 1 tab PO DAILY 09/10/18 09/16/18 (formulary)] Simvastatin 40 mg PO HS 09/10/18 09/16/18 Tamsulosin [Flomax] 0.8 mg PO DAILY 09/10/18 09/16/18 Previous Rx's Medication Instructions Recorded Acetaminophen Tab [Tylenol Tab] 650 mg PO Q4H PRN #30 tablet 09/13/18 Polyethylene Glycol 3350 [Miralax] 17 gm PO DAILY PRN #15 packet 09/13/18 Cephalexin [Keflex] 500 mg PO Q12HR 7 Days #14 cap 09/16/18 Allergies Allergy/AdvReac Type Severity Reaction Status Date / Time No Known Allergies Allergy Verified 09/16/18 20:16 Review of Systems ROS Statement: Those systems with pertinent positive or pertinent negative responses have been documented in the HPI. ROS Other: All systems not noted in ROS Statement are negative. Past Medical History Past Medical History: Atrial Fibrillation, COPD, Hyperlipidemia, Hypertension, Prostate Disorder Additional Past Medical History / Comment(s): Meniere's disease, BPH, DJD, arthiritis, chronic bradycardia, and chronic back pain, diverticulitis. History of Any Multi-Drug Resistant Organisms: None Reported Date of last positivie culture/infection: 2001? MDRO Source:: KNEE Past Surgical History: Back Surgery, Bowel Resection, Hernia Repair, Orthopedic Surgery Additional Past Surgical History / Comment(s): 04/11/15 EP STUDY . Low back surgery with rods and screws. Left knee fluid drained off and patellar scraped. RIGHT inguinal & abdominal hernia repair. Past Anesthesia/Blood Transfusion Reactions: No Reported Reaction Additional Past Anesthesia/Blood Transfusion Reaction / Comment(s): Pt has never recieved blood. Past Psychological History: No Psychological Hx Reported Smoking Status: Former smoker Past Alcohol Use History: None Reported Past Drug Use History: None Reported - Past Family History Mother History Unknown: Yes Family Medical History: No Reported History Additional Family Medical History / Comment(s): passed at 79, unknown cause Father History Unknown: Yes Family Medical History: No Reported History Additional Family Medical History / Comment(s): passed at 81yrs. General Exam - General Exam Comments Initial Comments: Constitutional: NAD, AOX3, Pt has pleasant affect. HEENT: NC/AT, trachea midline, neck supple, no lymphadenopathy. Posterior pharynx non erythematous, without exudates. External ears appear normal, without discharge. Mucous membranes moist. Eyes PERRLA, EOM intact. There is no scleral icterus. No pallor noted. Cardiopulmonary: RRR, no murmurs, rubs or gallops, no JVD noted. Lungs CTAB in anterior and posterior dugan. No peripheral edema. Abdominal exam: Abdomen soft and non-distended. Abdomen non-tender to palpation in all 4 quadrants. Bowel sounds active in LLQ. No hepatosplenomegaly. No ecchymosis Neuro: CN II-XII grossly intact. No nuchal rigidity. No raccon eyes, no hercules sign, no hemotympanum. No cervical spinal tenderness. MSK: No posterior calf tenderness bilaterally, homans sign negative bilaterally. Posterior tibialis and radial pulse +2 bilaterally. Sensation intact in upper and lower extremities. Full active ROM in upper and lower extremities, 5/5 stregnth. Limitations: no limitations Course Vital Signs 09/16/18 09/16/18 19:46 22:35 Temperature 98.0 F 98.0 F Pulse Rate 63 59 L Respiratory 18 18 Rate Blood Pressure 100/63 130/76 O2 Sat by Pulse 97 96 Oximetry Medical Decision Making - Medical Decision Making 78-year-old male patient since ED for evaluation of painless hematuria. Patient will signs stable, afebrile. Physical exam did not acute pathology. Laboratory investigations are non-impressive. UA displayed gross hematuria. Patient does have a particular pacemaker. Reportedly well-nourished was in room patient became bradycardic to the low 40s. This is only transient, and then heart rate continued to be in the 60s. EKG was obtained which displayed a paced rhythm in the 60s. Patient asymptomatic that time. Patient is asymptomatic. Was monitored on interventional tech and was consistently in the 60s and 70s. Patient discharged with urology follow-up. Placed on prophylactic Keflex. Case discussed with Dr. Mckeon. - Lab Data Result diagrams: 09/16/18 20:50 09/16/18 20:50 Lab Results 09/16/18 09/16/18 09/16/18 Range/Units 20:16 20:50 20:50 WBC 6.1 (3.8-10.6) k/uL RBC 4.06 L (4.30-5.90) m/uL Hgb 12.7 L (13.0-17.5) gm/dL Hct 39.1 (39.0-53.0) % MCV 96.4 (80.0-100.0) fL MCH 31.3 (25.0-35.0) pg MCHC 32.4 (31.0-37.0) g/dL RDW 13.3 (11.5-15.5) % Plt Count 177 (150-450) k/uL Neutrophils % 57 % Lymphocytes % 29 % Monocytes % 7 % Eosinophils % 4 % Basophils % 0 % Neutrophils # 3.5 (1.3-7.7) k/uL Lymphocytes # 1.8 (1.0-4.8) k/uL Monocytes # 0.4 (0-1.0) k/uL Eosinophils # 0.3 (0-0.7) k/uL Basophils # 0.0 (0-0.2) k/uL PT (9.0-12.0) sec INR (<1.2) APTT (22.0-30.0) sec Sodium 138 (137-145) mmol/L Potassium 4.3 (3.5-5.1) mmol/L Chloride 109 H (98-107) mmol/L Carbon Dioxide 20 L (22-30) mmol/L Anion Gap 9 mmol/L BUN 18 (9-20) mg/dL Creatinine 0.96 (0.66-1.25) mg/dL Est GFR (CKD-EPI)AfAm 89 (>60 ml/min/1.73 sqM) Est GFR (CKD-EPI)NonAf 77 (>60 ml/min/1.73 sqM) Glucose 72 L (74-99) mg/dL Calcium 8.6 (8.4-10.2) mg/dL Total Bilirubin 0.9 (0.2-1.3) mg/dL AST 44 (17-59) U/L ALT 26 (21-72) U/L Alkaline Phosphatase 51 (38-126) U/L Total Protein 6.4 (6.3-8.2) g/dL Albumin 3.7 (3.5-5.0) g/dL Urine Color Dark Brown Urine Appearance Cloudy (Clear) Urine pH 6.0 (5.0-8.0) Ur Specific [place] 1.023 (1.001-1.035) Urine Protein 2+ H (Negative) Urine Glucose (UA) Negative (Negative) Urine Ketones Trace H (Negative) Urine Blood Large H (Negative) Urine Nitrite Negative (Negative) Urine Bilirubin Negative (Negative) Urine Urobilinogen <2.0 (<2.0) mg/dL Ur Leukocyte Esterase Small H (Negative) Urine RBC >182 H (0-5) /hpf Urine Mucus Occasional H (None) /hpf 09/16/18 Range/Units 21:45 WBC (3.8-10.6) k/uL RBC (4.30-5.90) m/uL Hgb (13.0-17.5) gm/dL Hct (39.0-53.0) % MCV (80.0-100.0) fL MCH (25.0-35.0) pg MCHC (31.0-37.0) g/dL RDW (11.5-15.5) % Plt Count (150-450) k/uL Neutrophils % % Lymphocytes % % Monocytes % % Eosinophils % % Basophils % % Neutrophils # (1.3-7.7) k/uL Lymphocytes # (1.0-4.8) k/uL Monocytes # (0-1.0) k/uL Eosinophils # (0-0.7) k/uL Basophils # (0-0.2) k/uL PT 11.4 (9.0-12.0) sec INR 1.1 (<1.2) APTT 29.6 (22.0-30.0) sec Sodium (137-145) mmol/L Potassium (3.5-5.1) mmol/L Chloride (98-107) mmol/L Carbon Dioxide (22-30) mmol/L Anion Gap mmol/L BUN (9-20) mg/dL Creatinine (0.66-1.25) mg/dL Est GFR (CKD-EPI)AfAm (>60 ml/min/1.73 sqM) Est GFR (CKD-EPI)NonAf (>60 ml/min/1.73 sqM) Glucose (74-99) mg/dL Calcium (8.4-10.2) mg/dL Total Bilirubin (0.2-1.3) mg/dL AST (17-59) U/L ALT (21-72) U/L Alkaline Phosphatase (38-126) U/L Total Protein (6.3-8.2) g/dL Albumin (3.5-5.0) g/dL Urine Color Urine Appearance (Clear) Urine pH (5.0-8.0) Ur Specific [place] (1.001-1.035) Urine Protein (Negative) Urine Glucose (UA) (Negative) Urine Ketones (Negative) Urine Blood (Negative) Urine Nitrite (Negative) Urine Bilirubin (Negative) Urine Urobilinogen (<2.0) mg/dL Ur Leukocyte Esterase (Negative) Urine RBC (0-5) /hpf Urine Mucus (None) /hpf - EKG Data -: EKG Interpreted by Me (and Dr. Mckeon) EKG Comments: Ventricular rate 59, curious 168, QT/QTc 486/481. Wide QRS with occasional PVC and fusion complex, left axis deviation, nonspecific intraventricular block, lateral infarct, inferior infarct age-indeterminate, normal EKG, no subcu change from prior, paced rhythm.. Disposition Clinical Impression: Hematuria Disposition: HOME SELF-CARE Condition: Stable Instructions (If sedation given, give patient instructions): Hematuria (ED) Additional Instructions: Patient to adhere to previously discussed treatment plan and will take medication(s) as directed. Patient to follow up with PCP in 1-2 days. Patient to return to ED if symptoms do not improve. Take medication as directed. Follow-up with primary provider and urologist tomorrow. Return to ER if condition worsens. Prescriptions: Cephalexin [Keflex] 500 mg PO Q12HR 7 Days #14 cap Is patient prescribed a controlled substance at d/c from ED?: No Referrals: Sharron Ybarra III, MD [Primary Care Provider] - 1-2 days Asif Velarde MD [STAFF PHYSICIAN] - 1-2 days
[2018-09-16 22:47] VITALS: BP 130/76; PULSE 59
== END 2018-09-16 22:36 | disposition home or self-care (01) ==
LOC: EC 19:01
DX: R31.0 Gross hematuria (principal); R00.1 Bradycardia, unspecified; I48.91 Unspecified atrial fibrillation; E78.5 Hyperlipidemia, unspecified; I10 Essential (primary) hypertension; Z79.01 Long term (current) use of anticoagulants; Z79.890 Hormone replacement therapy; Z79.899 Other long term (current) drug therapy; Z95.0 Presence of cardiac pacemaker; Z87.891 Personal history of nicotine dependence
CPT/HCPCS: 36415; 80053; 81001; 85025; 85610; 85730; 99284

== ENCOUNTER 2020-03-03 17:22 | Emergency (ER) | payer MEDICARE, OTHER ==
[2020-03-03 17:31] VITALS: BP 134/85; PULSE 70; RESP 18; TEMP 98
[2020-03-03] MEDS ORDERED: LIDOCAINE 5% PATCH TOPICAL STA (17:50)
[2020-03-03] MEDS ORDERED: KETOROLAC 15 MG/ML 1 ML VIAL IM STA (17:50)
--- NOTE | 2020-03-03 17:53 | ED ---
General Adult HPI - General Chief complaint: Neck Pain/Injury Stated complaint: Neck/Shoulder pain Time Seen by Provider: 03/03/20 17:33 Source: patient, family Mode of arrival: ambulatory Limitations: no limitations - History of Present Illness Initial comments: Dictation was produced using [employer] dictation software. please excuse any grammatical, word or spelling errors. This patient was cared for during a federal and state declared state of emergency secondary to Covid 19 Chief Complaint: 79-year-old male with past medical history of neck surgery, chronic back pain, A. fib, dyslipidemia presents with neck pain and shoulder pain History of Present Illness: 79-year-old male who presents today with neck pain and shoulder pain. Patient states the pain is to his right lateral neck. Sharp. States that he also has pain in his right shoulder. States that her pain in his shoulder is worse with abduction and located to his superior shoulder. Denies any numbness and paresthesias to his right upper extremity. He has no other neurologic complaints. Patient states he doesn't remember hurting himself. He does not recall when his pain initially started. He had scalp surgery recently however he states that it was done in an office with local anesthesia. Patient has no complaints at this time. He states that his neck pain is worse with looking to the right. The ROS documented in this emergency department record has been reviewed and confirmed by me. Those systems with pertinent positive or negative responses have been documented in the HPI. All other systems are other negative and/or noncontributory. PHYSICAL EXAM: General Impression: Alert and oriented x3, not in acute distress HEENT: Normocephalic atraumatic, extra-ocular movements intact, pupils equal and reactive to light bilaterally, mucous membranes moist, tenderness to palpation over the right trapezius, surgical incision is clean dry tach with multiple tory over his forehead and a coronal fashion Cardiovascular: Heart regular rate and rhythm Chest: Able to complete full sentences, no retractions, no tachypnea Abdomen: abdomen soft, non-tender, non-distended, no organomegaly Musculoskeletal: Pulses present and equal in all extremities, no peripheral edema Right shoulder: Passive range of movement intact, skin is benign, active range of motion limited by pain with shoulder abduction to approximately the 100 Motor: no focal deficits noted Neurological: CN II-XII grossly intact, no focal motor or sensory deficits noted Skin: Intact with no visualized rashes Psych: Normal affect and mood ED course: 79-year-old male with chief complaint of neck pain and shoulder pain. Vital signs upon arrival are within acceptable limits. Patient's symptoms are musculoskeletal and reproducible with possible skeletal movements. Shoulder x-ray shows no acute processes. There is some spurring at the before meals joint. Computed tomography scan of the C-spine shows multilevel cervical spondylitic changes. Patient reevaluated bedside finally stable medical condition. Patient states that his pain is much more improved. He does have a spinal surgeon. He is told to follow up with his spine doctor. He takes [place] at home. Patient told to take his [place] where he has pain symptoms. - Related Data Home Medications Medication Instructions Recorded Confirmed Finasteride [Proscar] 5 mg PO DAILY 10/03/14 09/16/18 Docusate [Colace] 100 mg PO DAILY 10/14/15 09/16/18 Apixaban [Eliquis] 5 mg PO BID 09/10/18 09/16/18 Fish Oil/Dha/Epa [Fish Oil 1,200 1 cap PO DAILY 09/10/18 09/16/18 mg Fish Oil] Gabapentin [Neurontin] 100 mg PO TID 09/10/18 09/16/18 Levothyroxine Sodium [Synthroid] 50 mcg PO DAILY 09/10/18 09/16/18 Meclizine [Antivert] 12.5 mg PO DAILY 09/10/18 09/16/18 Metoprolol Tartrate [Lopressor] 25 mg PO BID 09/10/18 09/16/18 Multivitamins, Thera [Multivitamin 1 tab PO DAILY 09/10/18 09/16/18 (formulary)] Simvastatin 40 mg PO HS 09/10/18 09/16/18 Tamsulosin [Flomax] 0.8 mg PO DAILY 09/10/18 09/16/18 Previous Rx's Medication Instructions Recorded Acetaminophen Tab [Tylenol Tab] 650 mg PO Q4H PRN #30 tablet 09/13/18 polyethylene glycoL 3350 [Miralax] 17 gm PO DAILY PRN #15 packet 09/13/18 Cephalexin [Keflex] 500 mg PO Q12HR 7 Days #14 cap 09/16/18 Allergies Allergy/AdvReac Type Severity Reaction Status Date / Time No Known Allergies Allergy Verified 03/03/20 17:31 Review of Systems ROS Statement: Those systems with pertinent positive or pertinent negative responses have been documented in the HPI. ROS Other: All systems not noted in ROS Statement are negative. Past Medical History Past Medical History: Atrial Fibrillation, COPD, Hyperlipidemia, Hypertension, Prostate Disorder Additional Past Medical History / Comment(s): Meniere's disease, BPH, DJD, arthiritis, chronic bradycardia, and chronic back pain, diverticulitis. History of Any Multi-Drug Resistant Organisms: None Reported Date of last positivie culture/infection: 2001? MDRO Source:: KNEE Past Surgical History: Back Surgery, Bowel Resection, Hernia Repair, Orthopedic Surgery, Pacemaker Additional Past Surgical History / Comment(s): 04/11/15 EP STUDY . Low back surgery with rods and screws. Left knee fluid drained off and patellar scraped. RIGHT inguinal & abdominal hernia repair. Past Anesthesia/Blood Transfusion Reactions: No Reported Reaction Additional Past Anesthesia/Blood Transfusion Reaction / Comment(s): Pt has never recieved blood. Past Psychological History: No Psychological Hx Reported Smoking Status: Former smoker Past Alcohol Use History: None Reported Past Drug Use History: None Reported - Past Family History Mother History Unknown: Yes Family Medical History: No Reported History Additional Family Medical History / Comment(s): passed at 79, unknown cause Father History Unknown: Yes Family Medical History: No Reported History Additional Family Medical History / Comment(s): passed at 81yrs. General Exam Limitations: no limitations Course Vital Signs 03/03/20 17:25 Temperature 98 F Pulse Rate 70 Respiratory 18 Rate Blood Pressure 134/85 O2 Sat by Pulse 92 L Oximetry Disposition Clinical Impression: Neck pain Disposition: HOME SELF-CARE Condition: Good Instructions (If sedation given, give patient instructions): Cervical Strain (ED) Is patient prescribed a controlled substance at d/c from ED?: No Referrals: Bert Jansen DO [Doctor of Osteopathic Medicine] - 1-2 days Time of Disposition: 19:44
--- NOTE | 2020-03-03 18:20 | XR ---
EXAMINATION TYPE: XR shoulder complete RT DATE OF EXAM: 03/03/2020 COMPARISON: NONE HISTORY: Shoulder pain TECHNIQUE: 3 views FINDINGS: There is some spurring at the AC joint. I see no fracture nor dislocation. Glenohumeral joint is intact. IMPRESSION: No acute abnormality of the right shoulder.
--- NOTE | 2020-03-03 19:36 | CT ---
EXAMINATION TYPE: CT cervical spine wo con DATE OF EXAM: 03/03/2020 COMPARISON: None HISTORY: NECK PAIN CT DLP: 410.5 mGycm Automated exposure control for dose reduction was used. The cervical vertebra have normal alignment. There is degenerative disc space narrowing at C5-6 and C 6-7 with mild spurring of the endplates. There is multilevel cervical hypertrophic facet arthropathy. Prevertebral soft tissues are intact. The skull base is intact. There is previous surgery on the rig ht mastoid sinus. There is no evidence of a fracture. IMPRESSION: Multilevel cervical spondylotic changes. Previous surgery. No fracture seen.
== END 2020-03-03 20:38 | disposition home or self-care (01) ==
LOC: EC 17:22
DX: M47.812 Spondylosis without myelopathy or radiculopathy, cervical region (principal); I48.91 Unspecified atrial fibrillation; E78.5 Hyperlipidemia, unspecified; I10 Essential (primary) hypertension; N40.0 Benign prostatic hyperplasia without lower urinary tract symptoms; Z79.01 Long term (current) use of anticoagulants; Z79.899 Other long term (current) drug therapy; Z95.0 Presence of cardiac pacemaker; Z87.891 Personal history of nicotine dependence
CPT/HCPCS: 73030; 72125; 99284; 96372; J1885

== ENCOUNTER 2020-09-22 08:45 | Emergency (ER) | payer MEDICARE, OTHER ==
[2020-09-22 08:53] VITALS: TEMP 97.6
--- NOTE | 2020-09-22 09:19 | ED ---
General Adult HPI - General Chief complaint: ENT Stated complaint: ENT Time Seen by Provider: 09/22/20 08:56 Source: patient, RN notes reviewed, old records reviewed Mode of arrival: ambulatory Limitations: no limitations - History of Present Illness Initial comments: 80-year-old male who presented for evaluation of bleeding from his left ear. He had earwax removal performed yesterday at outside facility. He woke this morning with bleeding from the left ear. No significant pain. He has had difficulty hearing out of both ears and wears hearing aids. He has to have his [facility] Patient has a history of Mnire's disease she states she has a little bit dizzy but basically at baseline with no chest pain, no other complaints. No fever. - Related Data Home Medications Medication Instructions Recorded Confirmed Finasteride [Proscar] 5 mg PO DAILY 10/03/14 03/03/20 Docusate [Colace] 100 mg PO BID 10/14/15 03/03/20 Apixaban [Eliquis] 5 mg PO BID 09/10/18 03/03/20 Fish Oil/Dha/Epa [Fish Oil 1,200 1 cap PO DAILY 09/10/18 03/03/20 mg Fish Oil] Levothyroxine Sodium [Synthroid] 50 mcg PO DAILY 09/10/18 03/03/20 Meclizine [Antivert] 12.5 mg PO DAILY 09/10/18 03/03/20 Metoprolol Tartrate [Lopressor] 25 mg PO BID 09/10/18 03/03/20 Simvastatin 40 mg PO HS 09/10/18 03/03/20 Tamsulosin [Flomax] 0.4 mg PO BID 09/10/18 03/03/20 Aspirin EC [Ecotrin Low Dose] 81 mg PO DAILY 03/03/20 03/03/20 Fluorouracil [Efudex] 1 applic TOPICAL BID 03/03/20 03/03/20 HYDROcodone/APAP 10-325MG [[place] 1 tab PO 5XD 03/03/20 03/03/20 10-325] Lidocaine 5% Patch [Lidoderm] 1 patch TOPICAL DAILY 03/03/20 03/03/20 Multivit-Min/FA/Lycopen/Lutein 1 tab PO DAILY 03/03/20 03/03/20 [Centrum Silver Tablet] Allergies Allergy/AdvReac Type Severity Reaction Status Date / Time atorvastatin Allergy PER Verified 03/03/20 20:11 [facility] cephalexin [From Keflex] Allergy PER Verified 03/03/20 20:11 [facility] duloxetine Allergy PER Verified 03/03/20 20:11 [facility] escitalopram [From Lexapro] Allergy PER Verified 03/03/20 20:11 [facility] gabapentin Allergy PER Verified 03/03/20 20:11 [facility] levofloxacin [From Levaquin] Allergy PER Verified 03/03/20 20:11 [facility] niacin Allergy PER Verified 03/03/20 20:11 [facility] terazosin Allergy PER Verified 03/03/20 20:11 [facility] Review of Systems ROS Statement: Those systems with pertinent positive or pertinent negative responses have been documented in the HPI. ROS Other: All systems not noted in ROS Statement are negative. Past Medical History Past Medical History: Atrial Fibrillation, COPD, Hyperlipidemia, Hypertension, Prostate Disorder Additional Past Medical History / Comment(s): Meniere's disease, BPH, DJD, arthiritis, chronic bradycardia, and chronic back pain, diverticulitis. History of Any Multi-Drug Resistant Organisms: None Reported Date of last positivie culture/infection: 2001? MDRO Source:: KNEE Past Surgical History: Back Surgery, Bowel Resection, Hernia Repair, Orthopedic Surgery, Pacemaker Additional Past Surgical History / Comment(s): 04/11/15 EP STUDY . Low back surgery with rods and screws. Left knee fluid drained off and patellar scraped. RIGHT inguinal & abdominal hernia repair. Past Anesthesia/Blood Transfusion Reactions: No Reported Reaction Additional Past Anesthesia/Blood Transfusion Reaction / Comment(s): Pt has never recieved blood. Past Psychological History: No Psychological Hx Reported Smoking Status: Former smoker Past Alcohol Use History: None Reported Past Drug Use History: None Reported - Past Family History Mother History Unknown: Yes Family Medical History: No Reported History Additional Family Medical History / Comment(s): passed at 79, unknown cause Father History Unknown: Yes Family Medical History: No Reported History Additional Family Medical History / Comment(s): passed at 81yrs. General Exam Limitations: no limitations General appearance: alert, in no apparent distress Head exam: Present: atraumatic, normocephalic Eye exam: Present: normal appearance, PERRL ENT exam: Present: other (The left external auditory canal is occluded by dried blood and cerumen with an abrasion on the inferior portion of the canal. The eardrum is intact after removal of debris. Right tympanic membrane is within normal limits, there was cerumen impaction in the right ear with no bleeding.) Neck exam: Present: normal inspection Respiratory exam: Present: normal lung sounds bilaterally. Absent: respiratory distress Cardiovascular Exam: Present: regular rate, normal rhythm GI/Abdominal exam: Present: soft. Absent: distended, tenderness, guarding Extremities exam: Present: normal inspection, normal capillary refill. Absent: pedal edema Neurological exam: Present: alert, oriented X3, CN II-XII intact. Absent: motor sensory deficit Psychiatric exam: Present: normal affect, normal mood Skin exam: Present: warm, dry, intact. Absent: cyanosis, diaphoretic Course Vital Signs 09/22/20 08:50 Temperature 97.6 F Pulse Rate 61 Respiratory 16 Rate Blood Pressure 101/66 O2 Sat by Pulse 95 Oximetry Procedures - Ear Wax Removal Both Ears Cerumenolytic Used: other (None) Ear Canal Irrigated by: Ear Canal Irrigated With: warm saline using syringe/angiocath Ear Canal(s) Curetted: plastic loops Results: Re-examined: cerumen removed completely TM Visible: TM(s) intact, normal appearance Ear Canal: other (Area of prior abrasion noted) Patient Tolerated Procedure: well Complications: no problems Additional Comments: Patient had a bleeding and abrasion noted to the inferior medial ear canal on the left with a combination of coagulant of blood in her wax occluding the canal. This was his reason for visit. Medical Decision Making - Medical Decision Making 72-year-old male who presented with bleeding from the left ear after irrigation performed at outside healthcare facility yesterday. He does get his ear is cleaned regularly, wears hearing aids. No other complaints or issues. I did remove a combination of quite a bit of blood and earwax from the left ear canal and wax from the right ear canal. Both tympanic membranes are nonperforated normal-appearing. No active bleeding on the left. Disposition Clinical Impression: Impacted cerumen of both ears, Ear canal abrasion Disposition: HOME SELF-CARE Condition: Good Instructions (If sedation given, give patient instructions): Cerumen Impaction (ED) Is patient prescribed a controlled substance at d/c from ED?: No Referrals: Sharron Ybarra III, MD [Primary Care Provider] - 1-2 days Rj Grace DO [Doctor of Osteopathic Medicine] - 1-2 days Time of Disposition: 09:16
[2020-09-22 10:10] VITALS: BP 104/60; PULSE 78; RESP 18
== END 2020-09-22 10:09 | disposition home or self-care (01) ==
LOC: EC 08:45
DX: H61.23 Impacted cerumen, bilateral (principal); S00.412A Abrasion of left ear, initial encounter; I10 Essential (primary) hypertension; E78.5 Hyperlipidemia, unspecified; I48.91 Unspecified atrial fibrillation; J44.9 Chronic obstructive pulmonary disease, unspecified; M19.90 Unspecified osteoarthritis, unspecified site; N40.0 Benign prostatic hyperplasia without lower urinary tract symptoms; Z79.01 Long term (current) use of anticoagulants; Z79.82 Long term (current) use of aspirin; Z87.891 Personal history of nicotine dependence; Z88.1 Allergy status to other antibiotic agents; Z88.8 Allergy status to other drugs, medicaments and biological substances; Z95.0 Presence of cardiac pacemaker; Z79.899 Other long term (current) drug therapy; X58.XXXA Exposure to other specified factors, initial encounter
CPT/HCPCS: 69210; 99283

== ENCOUNTER 2020-11-01 16:55 | Inpatient (IN) | payer MEDICARE, OTHER ==
[2020-11-01] MEDS ORDERED: ONDANSETRON 4 MG/2 ML VIAL IVP STA (18:37)
[2020-11-01] MEDS ORDERED: SODIUM CHLORIDE 0.9% 1,000 ML IV STA ×2 (18:37→20:52)
[2020-11-01] MEDS ORDERED: ACETAMINOPHEN TAB 500 MG TAB PO STA (18:38)
--- NOTE | 2020-11-01 18:59 | XR ---
EXAMINATION TYPE: XR chest 2V DATE OF EXAM: 11/01/2020 COMPARISON: 07/16/2016 HISTORY: Cough and congestion TECHNIQUE: 2 views FINDINGS: There is some linear density left lung base. There is elevated right diaphragm. There is no heart failure. Heart size is normal. There are no hilar masses. There is left axillary pacemaker. IMPRESSION: Atelectasis left lung base without significant change. Chronic elevation of the right alfonso phragm.
[2020-11-01 19:42] LABS: Basophils # (A) 0.1 k/uL (0-0.2); Basophils % (A) 1 %; Eosinophils # (A) 0.1 k/uL (0-0.7); Eosinophils % (A) 1 %; HCT 47.2 % (39.0-53.0); Lymphocytes # (A) 0.6 k/uL (1.0-4.8); Lymphocytes % (A) 12 %; MCH 33.3 pg (25.0-35.0); MCHC 33.8 g/dL (31.0-37.0); MCV 98.6 fL (80.0-100.0); Mean Platelet Volume 8.5; Monocytes # (A) 0.3 k/uL (0-1.0); Monocytes % (A) 6 %; Neutrophils % (A) 78 %; Platelet Count 104 k/uL (150-450); RBC 4.79 m/uL (4.30-5.90); RDW 14.2 % (11.5-15.5); WBC 5.2 k/uL (3.8-10.6)
[2020-11-01 19:50] LABS: Albumin 3.6 g/dL (3.5-5.0); Calcium 8.6 mg/dL (8.4-10.2); Magnesium 2.1 mg/dL (1.6-2.3); Potassium 4.8 mmol/L (3.5-5.1); Total Bilirubin 1.1 mg/dL (0.2-1.3); Total Protein 6.6 g/dL (6.3-8.2)
[2020-11-01 20:13] LABS: Partial Thromboplastin Time 21.2 sec (22.0-30.0)
[2020-11-01] MEDS ORDERED: HEPARIN SODIUM 1,000 UN/ML (10ML VL) IV ONE (20:49)
[2020-11-01] MEDS ORDERED: HEPARIN SODIUM 1,000 UN/ML (10ML VL) IV PRN (20:49)
[2020-11-01] MEDS ORDERED: HEPARIN SOD,PORK IN 0.45% NACL 25,000 UNIT in 0.45% NACL 1 250ML.BAG IV SCH (21:00)
--- NOTE | 2020-11-01 21:16 | ED ---
General Adult HPI - General Chief complaint: Upper Respiratory Infection Stated complaint: fever, tired Time Seen by Provider: 11/01/20 17:52 Source: patient Mode of arrival: ambulatory Limitations: no limitations - History of Present Illness Initial comments: Patient is a 80-year-old male with past medical history that is remarkable for atrial fibrillation on anticoagulation, prostate disease, hypertension, hyperlipidemia, COPD, Mnire's disease, chronic bradycardia, diverticulitis who presents emergency Department complaining of a 2 to three-day history of malaise and fatigue. Patient also has had nonspecific abdominal discomfort as well as nausea and vomiting. Endorses chest discomfort that is nonspecific. He endorses some mild dyspnea. He also had some episodes of diarrhea and denies any change in flatus or constipation. States he is currently not nauseous. He did have an episode of emesis is nonbilious and nonbloody. States he just feels weak. Patient did receive the COVID-19 vaccination. Patient and his family member her concerned he may have COVID-19. Due to the hospital for evaluation. I evaluated the patient was placed in a room after COVID-19 swab was obtained in triage. - Related Data Home Medications Medication Instructions Recorded Confirmed Finasteride [Proscar] 5 mg PO DAILY 10/03/14 11/01/20 Docusate [Colace] 100 mg PO BID 10/14/15 11/01/20 Apixaban [Eliquis] 5 mg PO BID 09/10/18 11/01/20 Fish Oil/Dha/Epa [Fish Oil 1,200 1 cap PO DAILY 09/10/18 11/01/20 mg Fish Oil] Levothyroxine Sodium [Synthroid] 50 mcg PO DAILY 09/10/18 11/01/20 Meclizine [Antivert] 12.5 mg PO DAILY 09/10/18 11/01/20 Metoprolol Tartrate [Lopressor] 25 mg PO BID 09/10/18 11/01/20 Simvastatin 40 mg PO HS 09/10/18 11/01/20 Tamsulosin [Flomax] 0.4 mg PO BID 09/10/18 11/01/20 Aspirin EC [Ecotrin Low Dose] 81 mg PO DAILY 03/03/20 11/01/20 HYDROcodone/APAP 10-325MG [[place] 1 tab PO 5XD 03/03/20 11/01/20 10-325] Multivit-Min/FA/Lycopen/Lutein 1 tab PO DAILY 03/03/20 11/01/20 [Centrum Silver Tablet] Allergies Allergy/AdvReac Type Severity Reaction Status Date / Time atorvastatin Allergy PER Verified 11/01/20 20:57 [facility] cephalexin [From Keflex] Allergy PER Verified 11/01/20 20:57 [facility] duloxetine Allergy PER Verified 11/01/20 20:57 [facility] escitalopram [From Lexapro] Allergy PER Verified 11/01/20 20:57 [facility] gabapentin Allergy PER Verified 11/01/20 20:57 [facility] levofloxacin [From Levaquin] Allergy PER Verified 11/01/20 20:57 [facility] niacin Allergy PER Verified 11/01/20 20:57 [facility] terazosin Allergy PER Verified 11/01/20 20:57 [facility] Review of Systems ROS Statement: Those systems with pertinent positive or pertinent negative responses have been documented in the HPI. Review of Systems: CONST: Endorses fever, fatigue EYES: Denies blurry vision ENT: Denies nasal congestion C/V: Endorses nonspecific chest pain that he has difficulty describing RESP: Endorses intermittent shortness of breath GI: Endorses abdominal pain. : Denies dysuria SKIN: Denies rash. MSK: Denies joint pain. NEURO: Denies headache ROS Other: All systems not noted in ROS Statement are negative. Past Medical History Past Medical History: Atrial Fibrillation, COPD, Hyperlipidemia, Hypertension, Prostate Disorder Additional Past Medical History / Comment(s): Meniere's disease, BPH, DJD, arthiritis, chronic bradycardia, and chronic back pain, diverticulitis. History of Any Multi-Drug Resistant Organisms: None Reported Date of last positivie culture/infection: 2001? MDRO Source:: KNEE Past Surgical History: Back Surgery, Bowel Resection, Hernia Repair, Orthopedic Surgery, Pacemaker Additional Past Surgical History / Comment(s): 04/11/15 EP STUDY . Low back surgery with rods and screws. Left knee fluid drained off and patellar scraped. RIGHT inguinal & abdominal hernia repair. Past Anesthesia/Blood Transfusion Reactions: No Reported Reaction Additional Past Anesthesia/Blood Transfusion Reaction / Comment(s): Pt has never recieved blood. Past Psychological History: No Psychological Hx Reported Smoking Status: Former smoker Past Alcohol Use History: None Reported Past Drug Use History: None Reported - Past Family History Mother History Unknown: Yes Family Medical History: No Reported History Additional Family Medical History / Comment(s): passed at 79, unknown cause Father History Unknown: Yes Family Medical History: No Reported History Additional Family Medical History / Comment(s): passed at 81yrs. General Exam - General Exam Comments Initial Comments: General: Appears fatigued. HEAD: Normal with no signs of head trauma. EYES: PERRLA, EOMI, conjunctiva normal, no discharge. Pupils are 3 mm and reactive bilaterally. ENT: Hearing grossly intact, normal oropharynx. RESPIRATORY: Clear breath sounds bilaterally. No wheezes, rales, or rhonchi. C/V: Regular rate and rhythm. S1 and S2 auscultated. No peripheral edema. ABD: Soft, nondistended. Patient has generalized discomfort on abdominal exam but no specific tenderness. No peritoneal signs. No rebound tenderness. EXT: Normal range of motion, no obvious deformity SKIN: No rashes or lesions observed on exposed skin. NEURO: Alert and oriented 4. No focal sensory strength deficits. Limitations: no limitations Course Vital Signs 11/01/20 11/01/20 17:31 21:30 Temperature 100.4 F H 97.7 F Pulse Rate 93 83 Respiratory 19 18 Rate Blood Pressure 124/81 102/67 O2 Sat by Pulse 95 95 Oximetry Procedures - [facility] Protocol (Time Out) Nurse: Tana Rubio Medical Decision Making - Medical Decision Making Based on patient's presentation and physical exam, I'm concerned for possible COVID-19 infection the patient cannot rule out other etiology for his acute fever and current symptoms. This includes not being able to rule out cardiac etiology to to the nonspecific chest discomfort and dyspnea. Therefore we will obtain basic lavatory studies, blood cultures, lactate, urinalysis. We'll also obtain troponin, EKG, chest x-ray. Patient be Mr. in the fluid bolus in addition to Tylenol. He also be given an aspirin. Patient's EKG shows no signs of acute ischemia but atrial fibrillation with a controlled rate. Chest x-ray revealed no acute cardiopulmonary process. There is atelectasis in the left lung base. Patient's laboratory studies are remarkable for an elevated troponin of 0.049. Patient has mild hyponatremia of 131. Lactate is within normal limits. Urinalysis shows no signs of acute infection. There is some hematuria. COVID-19 swab was negative. Patient is mildly lymphopenic though. The remainder of his labs are unremarkable. Due to the patient's elevated troponin, I did speak with cardiology over the phone, Dr. Quispe and due to his chest discomfort and elevated troponin, he will be heparinized evaluated by cardiology tomorrow. I spoke with Dr. Carr regarding the admission, and he accepted the patient. Due to the nonspecific abdominal discomfort, we will obtain a CT abdomen and pelvis to rule out any intra-abdominal pathology for his current symptoms is currently we have no etiology for his fever. Patient's abdominal CT revealed an unchanged lung base exam with atelectasis in both lung bases. There is improvement in small bowel ileus similar to an old exam. There is no bowel obstruction. Due to the patient having bilateral infiltrates, he will receive a one-time dose of Rocephin here in the emergency department. They can decide on an inpatient basis if he requires continued Rocephin for possible pneumonia. COVID-19 pneumonia is still not off the differential despite the negative test as he does have signs and symptoms concerning for. Patient was therefore admitted in serous condition to telemetry bed. - Lab Data Result diagrams: 11/01/20 19:31 11/01/20 19:31 Lab Results 11/01/20 11/01/20 11/01/20 Range/Units 17:37 19:31 19:31 WBC 5.2 (3.8-10.6) k/uL RBC 4.79 (4.30-5.90) m/uL Hgb 16.0 (13.0-17.5) gm/dL Hct 47.2 (39.0-53.0) % MCV 98.6 (80.0-100.0) fL MCH 33.3 (25.0-35.0) pg MCHC 33.8 (31.0-37.0) g/dL RDW 14.2 (11.5-15.5) % Plt Count 104 L (150-450) k/uL MPV 8.5 Neutrophils % 78 % Lymphocytes % 12 % Monocytes % 6 % Eosinophils % 1 % Basophils % 1 % Neutrophils # 4.0 (1.3-7.7) k/uL Lymphocytes # 0.6 L (1.0-4.8) k/uL Monocytes # 0.3 (0-1.0) k/uL Eosinophils # 0.1 (0-0.7) k/uL Basophils # 0.1 (0-0.2) k/uL PT (9.0-12.0) sec INR (<1.2) APTT (22.0-30.0) sec Sodium 131 L (137-145) mmol/L Potassium 4.8 (3.5-5.1) mmol/L Chloride 102 (98-107) mmol/L Carbon Dioxide 22 (22-30) mmol/L Anion Gap 7 mmol/L BUN 21 H (9-20) mg/dL Creatinine 1.04 (0.66-1.25) mg/dL Est GFR (CKD-EPI)AfAm 80 (>60 ml/min/1.73 sqM) Est GFR (CKD-EPI)NonAf 69 (>60 ml/min/1.73 sqM) Glucose 113 H (74-99) mg/dL Plasma Lactic Acid Jose (0.7-2.0) mmol/L Calcium 8.6 (8.4-10.2) mg/dL Magnesium 2.1 (1.6-2.3) mg/dL Total Bilirubin 1.1 (0.2-1.3) mg/dL AST 71 H (17-59) U/L ALT 41 (4-49) U/L Alkaline Phosphatase 63 (38-126) U/L Troponin I (0.000-0.034) ng/mL Total Protein 6.6 (6.3-8.2) g/dL Albumin 3.6 (3.5-5.0) g/dL Urine Color Urine Appearance (Clear) Urine pH (5.0-8.0) Ur Specific [place] (1.001-1.035) Urine Protein (Negative) Urine Glucose (UA) (Negative) Urine Ketones (Negative) Urine Blood (Negative) Urine Nitrite (Negative) Urine Bilirubin (Negative) Urine Urobilinogen (<2.0) mg/dL Ur Leukocyte Esterase (Negative) Urine RBC (0-5) /hpf Urine WBC (0-5) /hpf Ur Squamous Epith Cells (0-4) /hpf Urine Mucus (None) /hpf Coronavirus (PCR) Not Detected (Not Detectd) 11/01/20 11/01/20 11/01/20 Range/Units 19:31 19:31 19:31 WBC (3.8-10.6) k/uL RBC (4.30-5.90) m/uL Hgb (13.0-17.5) gm/dL Hct (39.0-53.0) % MCV (80.0-100.0) fL MCH (25.0-35.0) pg MCHC (31.0-37.0) g/dL RDW (11.5-15.5) % Plt Count (150-450) k/uL MPV Neutrophils % % Lymphocytes % % Monocytes % % Eosinophils % % Basophils % % Neutrophils # (1.3-7.7) k/uL Lymphocytes # (1.0-4.8) k/uL Monocytes # (0-1.0) k/uL Eosinophils # (0-0.7) k/uL Basophils # (0-0.2) k/uL PT 11.0 (9.0-12.0) sec INR 1.0 (<1.2) APTT 21.2 L (22.0-30.0) sec Sodium (137-145) mmol/L Potassium (3.5-5.1) mmol/L Chloride (98-107) mmol/L Carbon Dioxide (22-30) mmol/L Anion Gap mmol/L BUN (9-20) mg/dL Creatinine (0.66-1.25) mg/dL Est GFR (CKD-EPI)AfAm (>60 ml/min/1.73 sqM) Est GFR (CKD-EPI)NonAf (>60 ml/min/1.73 sqM) Glucose (74-99) mg/dL Plasma Lactic Acid Jose 1.3 (0.7-2.0) mmol/L Calcium (8.4-10.2) mg/dL Magnesium (1.6-2.3) mg/dL Total Bilirubin (0.2-1.3) mg/dL AST (17-59) U/L ALT (4-49) U/L Alkaline Phosphatase (38-126) U/L Troponin I 0.049 H* (0.000-0.034) ng/mL Total Protein (6.3-8.2) g/dL Albumin (3.5-5.0) g/dL Urine Color Urine Appearance (Clear) Urine pH (5.0-8.0) Ur Specific [place] (1.001-1.035) Urine Protein (Negative) Urine Glucose (UA) (Negative) Urine Ketones (Negative) Urine Blood (Negative) Urine Nitrite (Negative) Urine Bilirubin (Negative) Urine Urobilinogen (<2.0) mg/dL Ur Leukocyte Esterase (Negative) Urine RBC (0-5) /hpf Urine WBC (0-5) /hpf Ur Squamous Epith Cells (0-4) /hpf Urine Mucus (None) /hpf Coronavirus (PCR) (Not Detectd) 11/01/20 Range/Units 21:49 WBC (3.8-10.6) k/uL RBC (4.30-5.90) m/uL Hgb (13.0-17.5) gm/dL Hct (39.0-53.0) % MCV (80.0-100.0) fL MCH (25.0-35.0) pg MCHC (31.0-37.0) g/dL RDW (11.5-15.5) % Plt Count (150-450) k/uL MPV Neutrophils % % Lymphocytes % % Monocytes % % Eosinophils % % Basophils % % Neutrophils # (1.3-7.7) k/uL Lymphocytes # (1.0-4.8) k/uL Monocytes # (0-1.0) k/uL Eosinophils # (0-0.7) k/uL Basophils # (0-0.2) k/uL PT (9.0-12.0) sec INR (<1.2) APTT (22.0-30.0) sec Sodium (137-145) mmol/L Potassium (3.5-5.1) mmol/L Chloride (98-107) mmol/L Carbon Dioxide (22-30) mmol/L Anion Gap mmol/L BUN (9-20) mg/dL Creatinine (0.66-1.25) mg/dL Est GFR (CKD-EPI)AfAm (>60 ml/min/1.73 sqM) Est GFR (CKD-EPI)NonAf (>60 ml/min/1.73 sqM) Glucose (74-99) mg/dL Plasma Lactic Acid Jose (0.7-2.0) mmol/L Calcium (8.4-10.2) mg/dL Magnesium (1.6-2.3) mg/dL Total Bilirubin (0.2-1.3) mg/dL AST (17-59) U/L ALT (4-49) U/L Alkaline Phosphatase (38-126) U/L Troponin I (0.000-0.034) ng/mL Total Protein (6.3-8.2) g/dL Albumin (3.5-5.0) g/dL Urine Color Yellow Urine Appearance Clear (Clear) Urine pH 5.5 (5.0-8.0) Ur Specific [place] 1.032 (1.001-1.035) Urine Protein Trace H (Negative) Urine Glucose (UA) Negative (Negative) Urine Ketones Negative (Negative) Urine Blood Large H (Negative) Urine Nitrite Negative (Negative) Urine Bilirubin Negative (Negative) Urine Urobilinogen <2.0 (<2.0) mg/dL Ur Leukocyte Esterase Negative (Negative) Urine RBC 38 H (0-5) /hpf Urine WBC 2 (0-5) /hpf Ur Squamous Epith Cells <1 (0-4) /hpf Urine Mucus Rare H (None) /hpf Coronavirus (PCR) (Not Detectd) - EKG Data -: EKG Interpreted by Me EKG Comments: 12-lead Electrocardiogram Interpretation Note EKG was reviewed and interpreted by myself. 12-lead ECG performed at 1907 is interpreted by me as revealing atrial fibrillation without RVR. At a rate of 90 beats per minute. [place] is normal. [place] interval is unobtainable. There are sedation is 124 ms, QTc is 445 ms.. There were no ST or T wave abnormalities to suggest myocardial ischemia or injury. R wave progression across the precordium was satisfactory. By my interpretation this EKG is non-diagnostic for acute ischemia. It is extremely similar to prior EKGs without any acute dynamic changes. Disposition Clinical Impression: Abdominal pain, NSTEMI (non-ST elevated myocardial infarction), Dehydration, Atrial fibrillation, Nausea, Pneumonia Disposition: ADMITTED IP TO THIS HOSP Condition: Serious
[2020-11-01] MEDS ORDERED: ACETAMINOPHEN TAB 325 MG TAB PO PRN (22:03)
[2020-11-01] MEDS ORDERED: KETOROLAC 15 MG/ML 1 ML VIAL IVP PRN (22:03)
[2020-11-01] MEDS ORDERED: ONDANSETRON 4 MG/2 ML VIAL IVP PRN (22:03)
--- NOTE | 2020-11-01 22:11 | CT ---
EXAMINATION TYPE: CT abdomen pelvis w con DATE OF EXAM: 11/01/2020 COMPARISON: 09/10/2018 HISTORY: Abdominal pain fever CT DLP: 1773.9 mGycm Automated exposure control for dose reduction was used. CONTRAST: Performed with IV Contrast, patient injected with 80 mL of Isovue 300. Images obtained from the diaphragm to the floor the pelvis with IV contrast. Heart is enlarged. There is some linear infiltrate and atelectasis at both lung bases. There is small pericardial effusion. There is no pleural effusion. Liver and spleen are intact. The bile ducts are not dilated. Stomach is intact. There is no pancreati c mass. Gallbladder appears normal. There is no adrenal mass. Kidneys show satisfactory contrast opacification. There is no hydronephrosi s. Ureters are not dilated. There is no retroperitoneal adenopathy. Bladder distends smoothly. There is no inguinal hernia. Prostate measures 6.4 cm. There is no free fluid in the pelvis. There are mult iple clips over the anterior abdominal wall from hernia surgery. Appendix is not seen. There is no si gn of thickened appendix. Location of the cecum is not clear. There is posterior fusion in the lumbar spine from L1 to L5. There is hypertrophic degenerative spurr ing throughout the thoracic and lumbar spine. There is no compression fracture. The bony pelvis is in tact. Hip joints are intact. IMPRESSION: Infiltrate and atelectasis at both lung bases similar to old exam. There is improvement in the small bowel ileus compared to old exam. I do not see evidence for mechanical bowel obstruction.
[2020-11-01 22:16] LABS: Appearance,Urine Clear (Clear); Bilirubin,Urine Negative (Negative); Blood,Urine Large (Negative); Color,Urine Yellow; Glucose,Urine (UA) Negative (Negative); Ketones,Urine Negative (Negative); Leukocyte Esterase,Urine Negative (Negative); Mucus,Urine Rare /hpf; Nitrite,Urine Negative (Negative); PH, Urine 5.5 (5.0-8.0); Protein,Urine Trace (Negative); RBC,Urine 38 /hpf (0-5); Specific Gravity,Urine 1.032 (1.001-1.035); Squamous Epithelial Cell,Urine <1 /hpf (0-4); Urobilinogen,Urine <2.0 mg/dL (<2.0); WBC,Urine 2 /hpf (0-5)
[2020-11-01] MEDS ORDERED: ASPIRIN 81 MG PO STA (22:25)
[2020-11-01] MEDS ORDERED: DOXYCYCLINE 100 MG in SODIUM CHLORIDE 0.9% 100 ML IVPB ONE (22:30)
[2020-11-01] MEDS: SODIUM CHLORIDE 0.9% 1,000 ML IV SCH (22:57)
[2020-11-02 04:17] LABS: Basophils % (A) 1 %; Eosinophils # (A) 0.1 k/uL (0-0.7); Eosinophils % (A) 3 %; HCT 45.1 % (39.0-53.0); Lymphocytes # (A) 0.7 k/uL (1.0-4.8); Lymphocytes % (A) 15 %; MCH 33.2 pg (25.0-35.0); MCHC 33.3 g/dL (31.0-37.0); MCV 99.7 fL (80.0-100.0); Monocytes # (A) 0.3 k/uL (0-1.0); Monocytes % (A) 6 %; Neutrophils # (A) 3.4 k/uL (1.3-7.7); Neutrophils % (A) 75 %; Platelet Count 106 k/uL (150-450); RBC 4.53 m/uL (4.30-5.90); RDW 13.6 % (11.5-15.5); WBC 4.5 k/uL (3.8-10.6)
[2020-11-02 04:28] LABS: INR 1.2 (<1.2); Partial Thromboplastin Time 93.2 sec (22.0-30.0)
[2020-11-02] MEDS: LEVOTHYROXINE 50 MCG TAB PO SCH (06:17)
[2020-11-02] MEDS: METOPROLOL TARTRATE 25 MG TAB PO SCH ×2 (08:35→21:44)
[2020-11-02] MEDS: ASPIRIN 81 MG PO SCH (08:36)
[2020-11-02] MEDS: DOCUSATE 100 MG CAP PO SCH ×2 (08:36→21:44)
[2020-11-02] MEDS: FINASTERIDE 5 MG TAB PO SCH (08:36)
[2020-11-02] MEDS: TAMSULOSIN 0.4 MG CAP.ER.24H PO SCH ×2 (08:36→21:44)
[2020-11-02] MEDS: APIXABAN 5 MG TAB PO SCH ×2 (10:03→21:43)
--- NOTE | 2020-11-02 10:15 | P.CRDCN ---
History of Present Illness Consult date: 11/02/20 History of present illness: HISTORY OF PRESENT ILLNESS: This is a 80-year-old male with a past medical history significant for paroxysmal atrial fibrillation, SVT with previous ablation, pacemaker insertion, hypertension, and hyperlipidemia. Patient follows in the office with Dr. Triplett. We have been asked to see the patient in consultation for abnormal troponins. Patient examined at the bedside. Patient states over the past few days he has b een feeling very weak and fatigued. He states he has not had a lot of energy and his took his temperature and he was found to have a fever at home. He reports some shortness of breath. He also reports a mild cough with sputum production, although he states it is infrequent. He denies chest pain or pressure. EKG reveals atrial fibrillation with controlled ventricular rate Chest xray atelectasis left lung base without significant change. Chronic elevation of right diaphragm. Laboratory data: WBC 4.5. Hemoglobin 15.0. Platelet count 106. Sodium 131. Potassium 4.8. BUN 21. Creatinine 1.04. Lactic acid 1.3. Magnesium 2.1. Troponin 0.049. 0.041. 0.038. Current home cardiac medications include simvastatin 40 mg daily, metoprolol tartrate 25 mg twice a day, Eliquis 5,000,000 g twice a day, and aspirin 81 mg daily Most recent echocardiogram obtained in July 2017 revealed ejection fraction 50- 55%. Mild mitral regurgitation. Mild tricuspid regurgitation. Patient underwent nuclear stress test in July 2017 revealing fixed inferior wall defect secondary to soft tissue attenuation REVIEW OF SYSTEMS: At the time of my exam: CONSTITUTIONAL: Denies fever or chills. HEENT: Denies blurred vision, vision changes, or eye pain. Denies hemoptysis CARDIOVASCULAR: Denies chest pain. Denies orthopnea. Denies PND. Denies palpitations RESPIRATORY: Denies shortness of breath. GASTROINTESTINAL: Denies abdominal pain. Denies nausea or vomiting. HEMATOLOGIC: Denies bleeding disorders. GENITOURINARY: Denies any blood in urine. SKIN: Denies pruitis. Denies rash. PHYSICAL EXAM: VITAL SIGNS: Reviewed. GENERAL: Well-developed in no acute distress. HEENT: Head is normocephalic. Pupils are equal, round. Sclerae anicteric. Mucous membranes of the mouth are moist. Neck supple. No JVD or thyromegaly LUNGS: Respirations even and unlabored. Lungs diminished to auscultation bilaterally. HEART: Irregular rate and rhythm. S1 and S2 heard. ABDOMEN: Soft. Nondistended. Nontender. EXTREMITIES: Normal range of motion. No clubbing or cyanosis. Peripheral pulses intact. No lower extremity edema NEUROLOGIC: Awake and alert. Oriented x 3. ASSESSMENT: Generalized weakness Fever Abnormal troponins, not suggestive of acute coronary syndrome, may be secondary to febrile illness Paroxysmal atrial fibrillation, on anticoagulation with Eliquis History of SVT with previous ablation History of pacemaker insertion Hypertension Hyperlipidemia PLAN: Discontinue IV heparin Resume Eliquis Resume additional home cardiac medications Obtain 2-D echo to assess cardiac structure and function Further recommendations pending patient's course Nurse practitioner note has been reviewed by physician. Signing provider agrees with the documented findings, assessment, and plan of care. Past Medical History Past Medical History: Atrial Fibrillation, COPD, Hyperlipidemia, Hypertension, Prostate Disorder Additional Past Medical History / Comment(s): Meniere's disease, BPH, DJD, arthiritis, chronic bradycardia, and chronic back pain, diverticulitis. History of Any Multi-Drug Resistant Organisms: None Reported Date of last positivie culture/infection: 2001? MDRO Source:: KNEE Past Surgical History: Back Surgery, Bowel Resection, Hernia Repair, Orthopedic Surgery, Pacemaker Additional Past Surgical History / Comment(s): 04/11/15 EP STUDY . Low back surgery with rods and screws. Left knee fluid drained off and patellar scraped. RIGHT inguinal & abdominal hernia repair. Past Anesthesia/Blood Transfusion Reactions: No Reported Reaction Additional Past Anesthesia/Blood Transfusion Reaction / Comment(s): Pt has never recieved blood. Type of Cardiac Device: Permanent Pacemaker Device Placement Date:: Past Psychological History: No Psychological Hx Reported Additional Psychological History / Comment(s): Pt resides with his spouse. He uses a cane or walker to ambulate. He drives. Smoking Status: Former smoker Past Alcohol Use History: None Reported Additional Past Alcohol Use History / Comment(s): Pt quit smoking in 1967. SMOKED FOR 4-6 YRS. PPD-1. Past Drug Use History: None Reported - Past Family History Mother History Unknown: Yes Family Medical History: No Reported History Additional Family Medical History / Comment(s): passed at 79, unknown cause Father History Unknown: Yes Family Medical History: No Reported History Additional Family Medical History / Comment(s): passed at 81yrs. Medications and Allergies Home Medications Medication Instructions Recorded Confirmed Type Finasteride [Proscar] 5 mg PO DAILY 10/03/14 11/01/20 History Docusate [Colace] 100 mg PO BID 10/14/15 11/01/20 History Apixaban [Eliquis] 5 mg PO BID 09/10/18 11/01/20 History Fish Oil/Dha/Epa [Fish Oil 1,200 1 cap PO DAILY 09/10/18 11/01/20 History mg Fish Oil] Levothyroxine Sodium [Synthroid] 50 mcg PO DAILY 09/10/18 11/01/20 History Meclizine [Antivert] 12.5 mg PO DAILY 09/10/18 11/01/20 History Metoprolol Tartrate [Lopressor] 25 mg PO BID 09/10/18 11/01/20 History Simvastatin 40 mg PO HS 09/10/18 11/01/20 History Tamsulosin [Flomax] 0.4 mg PO BID 09/10/18 11/01/20 History Aspirin EC [Ecotrin Low Dose] 81 mg PO DAILY 03/03/20 11/01/20 History HYDROcodone/APAP 10-325MG [[place] 1 tab PO 5XD 03/03/20 11/01/20 History 10-325] Multivit-Min/FA/Lycopen/Lutein 1 tab PO DAILY 03/03/20 11/01/20 History [Centrum Silver Tablet] Allergies Allergy/AdvReac Type Severity Reaction Status Date / Time atorvastatin Allergy PER Verified 11/01/20 20:57 [facility] cephalexin [From Keflex] Allergy PER Verified 11/01/20 20:57 [facility] duloxetine Allergy PER Verified 11/01/20 20:57 [facility] escitalopram [From Lexapro] Allergy PER Verified 11/01/20 20:57 [facility] gabapentin Allergy PER Verified 11/01/20 20:57 [facility] levofloxacin [From Levaquin] Allergy PER Verified 11/01/20 20:57 [facility] niacin Allergy PER Verified 11/01/20 20:57 [facility] terazosin Allergy PER Verified 11/01/20 20:57 [facility] Physical Exam Vitals: Vital Signs Temp Pulse Pulse Resp BP BP Pulse Ox 11/02/20 09:17 99.4 F 84 17 128/67 94 L 11/02/20 06:23 98.2 F 98 21 128/90 96 11/02/20 01:33 82 16 119/85 94 L 11/01/20 21:30 97.7 F 83 18 102/67 95 11/01/20 17:31 100.4 F H 93 19 124/81 95 Intake and Output 11/01/20 11/02/20 11/02/20 22:59 06:59 14:59 Intake Total 70.833 Balance 70.833 Intake: Intake, IV Titration 70.833 Amount Heparin Sod,Pork in 0.45% 70.833 NaCl 25,000 unit In 0.45 % NaCl 1 250ml.bag @ 10. 498 UNITS/KG/HR 10 mls/hr IV .Q24H [facility] Rx#: [id number] Other: Weight 95.254 kg 95.254 kg Results 11/02/20 03:39 11/01/20 19:31 Cardiac Enzymes 11/01/20 11/01/20 11/01/20 Range/Units 19:31 19:31 22:26 AST 71 H (17-59) U/L Troponin I 0.049 H* 0.041 H* (0.000-0.034) ng/mL 11/02/20 Range/Units 00:41 AST (17-59) U/L Troponin I 0.038 H* (0.000-0.034) ng/mL Coagulation 11/01/20 11/02/20 Range/Units 19:31 03:39 PT 11.0 12.0 (9.0-12.0) sec APTT 21.2 L 93.2 H (22.0-30.0) sec CBC 11/01/20 11/02/20 Range/Units 19:31 03:39 WBC 5.2 4.5 (3.8-10.6) k/uL RBC 4.79 4.53 (4.30-5.90) m/uL Hgb 16.0 15.0 (13.0-17.5) gm/dL Hct 47.2 45.1 (39.0-53.0) % Plt Count 104 L 106 L (150-450) k/uL Comprehensive Metabolic Panel 11/01/20 Range/Units 19:31 Sodium 131 L (137-145) mmol/L Potassium 4.8 (3.5-5.1) mmol/L Chloride 102 (98-107) mmol/L Carbon Dioxide 22 (22-30) mmol/L BUN 21 H (9-20) mg/dL Creatinine 1.04 (0.66-1.25) mg/dL Glucose 113 H (74-99) mg/dL Calcium 8.6 (8.4-10.2) mg/dL AST 71 H (17-59) U/L ALT 41 (4-49) U/L Alkaline Phosphatase 63 (38-126) U/L Total Protein 6.6 (6.3-8.2) g/dL Albumin 3.6 (3.5-5.0) g/dL Current Medications Generic Name Dose Route Start Last Admin Trade Name Freq PRN Reason Stop Dose Admin Acetaminophen 650 mg 11/01/20 22:03 11/02/20 09:22 Acetaminophen Tab 325 Mg Tab PO 650 mg Q6HR PRN Administration Mild Pain or Fever > 100.5 Apixaban 5 mg 11/02/20 09:45 Apixaban 5 Mg Tab PO BID [facility] Protocol Aspirin 81 mg 11/02/20 09:00 11/02/20 08:36 Aspirin 81 Mg PO 81 mg DAILY ILYA Administration Docusate Sodium 100 mg 11/02/20 09:00 11/02/20 08:36 Docusate 100 Mg Cap PO 100 mg BID ILYA Administration Finasteride 5 mg 11/02/20 09:00 11/02/20 08:36 Finasteride 5 Mg Tab PO 5 mg DAILY ILYA Administration Sodium Chloride 1,000 mls @ 75 mls/hr 11/01/20 22:15 11/01/20 22:57 Saline 0.9% IV 75 mls/hr .[id number] ILYA Administration Ketorolac Tromethamine 15 mg 11/01/20 22:03 Ketorolac 15 Mg/Ml 1 Ml Vial IVP 11/04/20 22:03 Q6HR PRN Moderate Pain Levothyroxine Sodium 50 mcg 11/02/20 06:30 11/02/20 06:17 Levothyroxine 50 Mcg Tab PO 50 mcg DAILY@0630 ILYA Administration Metoprolol Tartrate 25 mg 11/02/20 09:00 11/02/20 08:35 Metoprolol Tartrate 25 Mg Tab PO 25 mg BID ILYA Administration Non-Formulary Medication 40 mg 11/02/20 21:00 Simvastatin [Simvastatin] PO HS [facility] Ondansetron HCl 4 mg 11/01/20 22:03 Ondansetron 4 Mg/2 Ml Vial IVP Q8HR PRN Nausea And Vomiting Tamsulosin HCl 0.4 mg 11/02/20 09:00 11/02/20 08:36 Tamsulosin 0.4 Mg Cap.Er.24h PO 0.4 mg BID ILYA Administration Intake and Output 11/01/20 11/02/20 11/02/20 22:59 06:59 14:59 Intake Total 70.833 Balance 70.833 Intake: Intake, IV Titration 70.833 Amount Heparin Sod,Pork in 0.45% 70.833 NaCl 25,000 unit In 0.45 % NaCl 1 250ml.bag @ 10. 498 UNITS/KG/HR 10 mls/hr IV .Q24H [facility] Rx#: [id number] Other: Weight 95.254 kg 95.254 kg Patient Weight 11/03/20 06:59 Weight 95.254 kg 11/02/20 03:39 11/01/20 19:31
[2020-11-02] MEDS: HYDROcodone/APAP 10-325MG 1 EACH TAB PO SCH ×4 (10:42→23:10)
--- NOTE | 2020-11-02 11:38 | ECHOF ---
Referral Reason:LV function MEASUREMENTS -------- HEIGHT: 182.9 cm WEIGHT: 95.3 kg BP: 128/67 IVSd: 1.4 cm (0.6 - 1.1) LVIDd: 4.1 cm (3.9 - 5.3) LVPWd: 1.5 cm (0.6 - 1.1) EDV(Teich): 73 ml IVSs: 2.0 cm LVIDs: 3.5 cm LVPWs: 2.1 cm %IVS Thck: 45 % ESV(Teich): 51 ml EF(Teich): 30 % %FS: 14 % SV(Teich): 22 ml LA Diam: 4.8 cm (2.7 - 3.8) RVIDd: 3.8 cm (< 3.3) LALs A4C: 6.9 cm LAAs A4C: 31.0 cm LAESV A-L A4C: 118 ml LAESV MOD A4C: 110 ml LALs A2C: 6.6 cm LAAs A2C: 23.6 cm LAESV A-L A2C: 71 ml LAESV MOD A2C: 66 ml LAESV(A-L): 94 ml LAESV Index (A-L): 43.04 ml/m Ao Diam: 3.5 cm (2.0 - 3.7) EPSS: 0.6 cm MV DecT: 120 ms MV PHT: 40 ms MVA By PHT: 5.4 cm AV Vmax: 1.06 m/s AV maxP.55 mmHg TR Vmax: 2.93 m/s TR maxP.24 mmHg RAP: 5.00 mmHg RVSP: 39.24 mmHg MV EF SLOPE: 43.60 mm/s (70 - 150) MV EXCURSION: 22.26 mm (> 18.000) FINDINGS -------- Atrial fibrillation. This was a technically adequate study. The left ventricular size is normal. There is moderate concentric left ventricular hypertrophy. O verall left ventricular systolic function is mildly impaired with, an EF between 45 - 50 %. The right ventricle is mild to moderately enlarged. LA is severely dilated >40 ml/m2 The right atrium is normal in size. Interatrial and interventricular septum intact. There is mild aortic valve sclerosis. Mild mitral regurgitation is present. Mild tricuspid regurgitation present. There is moderate pulmonary hypertension. The right ventric ular systolic pressure, as measured by Doppler, is 39.24mmHg. Trace/mild (physiologic) pulmonic regurgitation. The aortic root size is normal. IVC Not well visulized. There is no pericardial effusion. CONCLUSIONS -------- 1. The left ventricular size is normal. 2. There is moderate concentric left ventricular hypertrophy. 3. Overall left ventricular systolic function is mildly impaired with, an EF between 45 - 50 %. 4. The right ventricle is mild to moderately enlarged. 5. LA is severely dilated >40 ml/m2 6. Mild mitral regurgitation is present. 7. Mild tricuspid regurgitation present. 8. There is moderate pulmonary hypertension. 9. The right ventricular systolic pressure, as measured by Doppler, is 39.24mmHg. 10. Trace/mild (physiologic) pulmonic regurgitation. 11. There is no pericardial effusion. INTER COM INSTALLER: Blanche Bar RDCS
[2020-11-02] MEDS: SODIUM CHLORIDE 0.9% 1,000 ML IV SCH (12:50)
[2020-11-02] MEDS ORDERED: IPRATROPIUM-ALBUTEROL 3 ML NEB INHALATION PRN (16:24)
--- NOTE | 2020-11-02 16:26 | P.HPIM ---
History of Present Illness H&P Date: 11/02/20 Chief Complaint: Generalized weakness Patient is a 80-year-old male with a known history of paroxysmal atrial fibrillation on anticoagulation with Eliquis, aside SVT status post ablation, history of permanent pacemaker placement, hypertension, hyperlipidemia, COPD, prior history of smoking, chronic back pain, osteoarthritis, BPH, Mnire's disease and other medical problems was brought to the hospital due to complaints of generalized weakness and fatigue and tightness for the past 2-3 days. Patient says that he has been having sweating and abdominal discomfort as well as nausea. Patient is also having mild shortness of breath. No complaints of chest pain. Patient did have episodes of diarrhea. Due to patient's symptoms not improving which made him to come to ER. In the ER patient did have fever 1 with T-max 100.4. Pulse ox 97% on room air. Heart rate 93 and blood pressure 124/81. Chest x-ray showed atelectasis left lung base without significant change. Chronic elevation of the right diaphragm. CT of the abdominal pelvis showed infiltrate and atelectasis at both lung bases similar to oral exam. There is improvement in the small bowel ileus compared to old exam. No evidence of mechanical bowel obstruction. EKG showed atrial fibrillation with premature ventricular or aberrantly conducted complexes. Laboratory data showed WBC 5.2 hemoglobin 16.0 and platelets 104 Lymphocytes 0.6 Sodium 131 potassium 4.8 chloride 102 BUN 21 and creatinine 1.04 blood sugar is 113 Troponin 0.049, 0.041, 0.038 Urinalysis showed trace protein and large blood and RBCs 38 and WBC 2 Review of Systems Constitutional: Patient did have fever. Generalized weakness and fatigue and tiredness.. Abdomen: Does have nausea and episode of vomiting and abdominal discomfort also had diarrhea. Cardiovascular: Patient denies any chest pain. Positive short of breath no palpitations. Respiratory: Cough with whitish sputum production. Also complains of shortness of breath Neurologic: Patient denied any numbness or tingling headache. Musculoskeletal: Patient denies any complaints of joint swelling or deformity. Skin: Negative Psychiatric: Negative Endocrine: No heat or cold intolerance. No recent weight gain. Genitourinary: No dysuria or hematuria. All other 14 point ROS negative except the above Past Medical History Past Medical History: Atrial Fibrillation, COPD, Hyperlipidemia, Hypertension, Prostate Disorder Additional Past Medical History / Comment(s): Meniere's disease, BPH, DJD, arthiritis, chronic bradycardia, and chronic back pain, diverticulitis. History of Any Multi-Drug Resistant Organisms: None Reported Date of last positivie culture/infection: 2001? MDRO Source:: KNEE Past Surgical History: Back Surgery, Bowel Resection, Hernia Repair, Orthopedic Surgery, Pacemaker Additional Past Surgical History / Comment(s): 04/11/15 EP STUDY . Low back surgery with rods and screws. Left knee fluid drained off and patellar scraped. RIGHT inguinal & abdominal hernia repair. Past Anesthesia/Blood Transfusion Reactions: No Reported Reaction Additional Past Anesthesia/Blood Transfusion Reaction / Comment(s): Pt has never recieved blood. Type of Cardiac Device: Permanent Pacemaker Device Placement Date:: unk Past Psychological History: No Psychological Hx Reported Additional Psychological History / Comment(s): Pt resides with his spouse. He uses a cane or walker to ambulate. He drives. Smoking Status: Former smoker Past Alcohol Use History: None Reported Additional Past Alcohol Use History / Comment(s): Pt quit smoking in 1967. SMOKED FOR 4-6 YRS. PPD-1. Past Drug Use History: None Reported - Past Family History Mother History Unknown: Yes Family Medical History: No Reported History Additional Family Medical History / Comment(s): passed at 79, unknown cause Father History Unknown: Yes Family Medical History: No Reported History Additional Family Medical History / Comment(s): passed at 81yrs. Medications and Allergies Home Medications Medication Instructions Recorded Confirmed Type Finasteride [Proscar] 5 mg PO DAILY 10/03/14 11/01/20 History Docusate [Colace] 100 mg PO BID 10/14/15 11/01/20 History Apixaban [Eliquis] 5 mg PO BID 09/10/18 11/01/20 History Fish Oil/Dha/Epa [Fish Oil 1,200 1 cap PO DAILY 09/10/18 11/01/20 History mg Fish Oil] Levothyroxine Sodium [Synthroid] 50 mcg PO DAILY 09/10/18 11/01/20 History Meclizine [Antivert] 12.5 mg PO DAILY 09/10/18 11/01/20 History Metoprolol Tartrate [Lopressor] 25 mg PO BID 09/10/18 11/01/20 History Simvastatin 40 mg PO HS 09/10/18 11/01/20 History Tamsulosin [Flomax] 0.4 mg PO BID 09/10/18 11/01/20 History Aspirin EC [Ecotrin Low Dose] 81 mg PO DAILY 03/03/20 11/01/20 History HYDROcodone/APAP 10-325MG [[place] 1 tab PO 5XD 03/03/20 11/01/20 History 10-325] Multivit-Min/FA/Lycopen/Lutein 1 tab PO DAILY 03/03/20 11/01/20 History [Centrum Silver Tablet] Allergies Allergy/AdvReac Type Severity Reaction Status Date / Time atorvastatin Allergy PER Verified 11/01/20 20:57 [facility] cephalexin [From Keflex] Allergy PER Verified 11/01/20 20:57 [facility] duloxetine Allergy PER Verified 11/01/20 20:57 [facility] escitalopram [From Lexapro] Allergy PER Verified 11/01/20 20:57 [facility] gabapentin Allergy PER Verified 11/01/20 20:57 [facility] levofloxacin [From Levaquin] Allergy PER Verified 11/01/20 20:57 [facility] niacin Allergy PER Verified 11/01/20 20:57 [facility] terazosin Allergy PER Verified 11/01/20 20:57 [facility] Physical Exam Vitals: Vital Signs Temp Pulse Pulse Resp BP BP Pulse Ox 11/02/20 09:17 99.4 F 84 17 128/67 94 L 11/02/20 06:23 98.2 F 98 21 128/90 96 11/02/20 01:33 82 16 119/85 94 L 11/01/20 21:30 97.7 F 83 18 102/67 95 11/01/20 17:31 100.4 F H 93 19 124/81 95 Intake and Output 11/01/20 11/02/20 11/02/20 22:59 06:59 14:59 Intake Total 70.833 29.52 Balance 70.833 29.52 Intake: Intake, IV Titration 70.833 29.52 Amount Heparin Sod,Pork in 0.45% 70.833 29.52 NaCl 25,000 unit In 0.45 % NaCl 1 250ml.bag @ 10. 498 UNITS/KG/HR 10 mls/hr IV .Q24H [facility] Rx#: [id number] Other: Weight 95.254 kg 95.254 kg PHYSICAL EXAMINATION: Patient is lying in the bed comfortably, no acute distress, awake alert and oriented. Seems to be lethargic and weak.. HEENT: Normocephalic. Neck is supple. Pupils reactive. Nostrils clear. Oral cavity is moist. Neck reveals no JVD, carotid bruits, or thyromegaly. CHEST EXAMINATION: Trachea is central. Symmetrical expansion. Bibasilar diminished air entry and scattered coarse sounds. No wheezing. CARDIAC: Normal S1, S2 with no gallops. No murmurs , irregularly irregular. ABDOMEN: Soft. Bowel sounds normal. No organomegaly. No abdominal bruits. Extremities: reveal no edema. No clubbing or cyanosis Neurologically awake, alert, oriented x3 with well-coordinated movements. No focal deficits noted Skin: No rash or skin lesions. Psychiatric: Coperative. Nonsuicidal Musculoskeletal: No joint swelling or deformity. Normal range of motion. Results CBC & Chem 7: 11/02/20 03:39 11/01/20 19:31 Labs: Abnormal Lab Results - Last 24 Hours (Table) 11/01/20 11/01/20 11/01/20 Range/Units 19:31 19:31 19:31 Plt Count 104 L (150-450) k/uL Lymphocytes # 0.6 L (1.0-4.8) k/uL INR (<1.2) APTT 21.2 L (22.0-30.0) sec Sodium 131 L (137-145) mmol/L BUN 21 H (9-20) mg/dL Glucose 113 H (74-99) mg/dL AST 71 H (17-59) U/L Troponin I (0.000-0.034) ng/mL Urine Protein (Negative) Urine Blood (Negative) Urine RBC (0-5) /hpf Urine Mucus (None) /hpf 11/01/20 11/01/20 11/01/20 Range/Units 19:31 21:49 22:26 Plt Count (150-450) k/uL Lymphocytes # (1.0-4.8) k/uL INR (<1.2) APTT (22.0-30.0) sec Sodium (137-145) mmol/L BUN (9-20) mg/dL Glucose (74-99) mg/dL AST (17-59) U/L Troponin I 0.049 H* 0.041 H* (0.000-0.034) ng/mL Urine Protein Trace H (Negative) Urine Blood Large H (Negative) Urine RBC 38 H (0-5) /hpf Urine Mucus Rare H (None) /hpf 11/02/20 11/02/20 11/02/20 Range/Units 00:41 03:39 03:39 Plt Count 106 L (150-450) k/uL Lymphocytes # 0.7 L (1.0-4.8) k/uL INR 1.2 H (<1.2) APTT 93.2 H (22.0-30.0) sec Sodium (137-145) mmol/L BUN (9-20) mg/dL Glucose (74-99) mg/dL AST (17-59) U/L Troponin I 0.038 H* (0.000-0.034) ng/mL Urine Protein (Negative) Urine Blood (Negative) Urine RBC (0-5) /hpf Urine Mucus (None) /hpf Thrombosis Risk Factor Assmnt - DVT/VTE Prophylaxis DVT/VTE Prophylaxis: Pharmacologic Prophylaxis ordered - Choose All That Apply Each Risk Factor Represents 3 Points: Age 75 years or older Thrombosis Risk Factor Assessment Total Risk Factor Score: 3 Thrombosis Risk Factor Assessment Level: Moderate Risk Assessment and Plan Assessment: Fever likely due to atelectasis with possible underlying pneumonia. Generalized weakness and fatigue and tiredness. Mildly elevated troponin level. Trending down. Paroxysmal atrial fibrillation on anticoagulation with Eliquis. Status post pacemaker placement History of SVT status post ablation COPD Previous history of smoking Hypertension BPH Mnire's disease Osteoarthritis Chronic back pain and history of back surgery DVT prophylaxis patient is already on Eliquis Plan: Patient was initially started on heparin drip due to elevated troponin level. Continue with telemetry monitoring. Currently heparin has been discontinued and patient was started back on Eliquis. Patient is afebrile. We'll check pro-calcitonin level. COVID-19 PCR not detected. Patient is ALLERGIC to cephalexin and levofloxacin. Continue with doxycycline empirically for now. Continue with gentle IV hydration. Next and symptomatic management for nausea and vomiting. Continue PPI and follow up closely. Discussed with the patient and his at bedside in detail. Time with Patient: Greater than 30
[2020-11-02] MEDS: PANTOPRAZOLE 40 MG TABLET PO SCH (16:31)
[2020-11-02] MEDS ORDERED: SIMVASTATIN 80 MG PO SCH (21:00)
[2020-11-02] MEDS: DOXYCYCLINE 100 MG CAP PO SCH (21:44)
[2020-11-03] MEDS: LEVOTHYROXINE 50 MCG TAB PO SCH (06:21)
[2020-11-03] MEDS: PANTOPRAZOLE 40 MG TABLET PO SCH (06:21)
[2020-11-03] MEDS: HYDROcodone/APAP 10-325MG 1 EACH TAB PO SCH ×3 (06:21→16:43)
[2020-11-03] MEDS: SODIUM CHLORIDE 0.9% 1,000 ML IV SCH ×2 (06:25→10:09)
[2020-11-03 08:10] LABS: African American GFR (CKD) >90 (>60 ml/min/1.73 sqM); Anion Gap 5 mmol/L; Blood Urea Nitrogen 18 mg/dL (9-20); Calcium 7.9 mg/dL (8.4-10.2); Carbon Dioxide 21 mmol/L (22-30); Chloride 109 mmol/L (98-107); Glucose 94 mg/dL (74-99); Non-African American GFR(CKD) 84 (>60 ml/min/1.73 sqM); Sodium 135 mmol/L (137-145)
[2020-11-03 08:20] LABS: Potassium 4.5 mmol/L (3.5-5.1)
[2020-11-03 08:43] LABS: Basophils % (A) 1 %; Eosinophils # (A) 0.1 k/uL (0-0.7); Eosinophils % (A) 2 %; HCT 39.4 % (39.0-53.0); HGB 13.4 gm/dL (13.0-17.5); Lymphocytes # (A) 0.8 k/uL (1.0-4.8); Lymphocytes % (A) 13 %; MCH 33.3 pg (25.0-35.0); MCHC 34.1 g/dL (31.0-37.0); MCV 97.6 fL (80.0-100.0); Mean Platelet Volume 8.1; Monocytes # (A) 0.4 k/uL (0-1.0); Monocytes % (A) 7 %; Neutrophils # (A) 4.6 k/uL (1.3-7.7); Neutrophils % (A) 74 %; Platelet Count 114 k/uL (150-450); RBC 4.04 m/uL (4.30-5.90); RDW 13.9 % (11.5-15.5); WBC 6.3 k/uL (3.8-10.6)
[2020-11-03] MEDS: DOXYCYCLINE 100 MG CAP PO SCH (10:07)
[2020-11-03] MEDS: ASPIRIN 81 MG PO SCH (10:07)
[2020-11-03] MEDS: APIXABAN 5 MG TAB PO SCH (10:07)
[2020-11-03] MEDS: FINASTERIDE 5 MG TAB PO SCH (10:08)
[2020-11-03] MEDS: DOCUSATE 100 MG CAP PO SCH (10:08)
[2020-11-03] MEDS: METOPROLOL TARTRATE 25 MG TAB PO SCH (10:08)
[2020-11-03] MEDS: TAMSULOSIN 0.4 MG CAP.ER.24H PO SCH (10:08)
[2020-11-03 13:00] VITALS: PULSE 83; RESP 17
--- NOTE | 2020-11-03 13:08 | P.PN ---
Subjective Progress Note Date: 11/03/20 HISTORY OF PRESENT ILLNESS: This is a 80-year-old male with a past medical history significant for paroxysmal atrial fibrillation, SVT with previous ablation, pacemaker insertion, hypertension, and hyperlipidemia. Patient follows in the office with Dr. Triplett. We have been asked to see the patient in consultation for abnormal troponins. Patient examined at the bedside. Patient states over the past few days he has been feeling very weak and fatigued. He states he has not had a lot of energy and his took his temperature and he was found to have a fever at home. He reports some shortness of breath. He also reports a mild cough with sputum production, although he states it is infrequent. He denies chest pain or pressure. EKG reveals atrial fibrillation with controlled ventricular rate Chest xray atelectasis left lung base without significant change. Chronic eleva tion of right diaphragm. Laboratory data: WBC 4.5. Hemoglobin 15.0. Platelet count 106. Sodium 131. Potassium 4.8. BUN 21. Creatinine 1.04. Lactic acid 1.3. Magnesium 2.1. Troponin 0.049. 0.041. 0.038. Current home cardiac medications include simvastatin 40 mg daily, metoprolol tartrate 25 mg twice a day, Eliquis 5,000,000 g twice a day, and aspirin 81 mg daily Most recent echocardiogram obtained in July 2017 revealed ejection fraction 50- 55%. Mild mitral regurgitation. Mild tricuspid regurgitation. Patient underwent nuclear stress test in July 2017 revealing fixed inferior wall defect secondary to soft tissue attenuation 11/03/2020 Patient examined this morning at the bedside. Patient denies chest pain or pressure. He denies shortness of breath. He does report an occasional cough with sputum production. Echocardiogram completed revealed ejection fraction 45- 50%. PHYSICAL EXAM: VITAL SIGNS: Reviewed. GENERAL: Well-developed in no acute distress. HEENT: Head is normocephalic. Pupils are equal, round. Sclerae anicteric. Mucous membranes of the mouth are moist. Neck supple. No JVD or thyromegaly LUNGS: Respirations even and unlabored. Lungs diminished to auscultation bilaterally. HEART: Irregular rate and rhythm. S1 and S2 heard. ABDOMEN: Soft. Nondistended. Nontender. EXTREMITIES: Normal range of motion. No clubbing or cyanosis. Peripheral pulses intact. No lower extremity edema NEUROLOGIC: Awake and alert. Oriented x 3. ASSESSMENT: Generalized weakness Fever Abnormal troponins, not suggestive of acute coronary syndrome, may be secondary to febrile illness Paroxysmal atrial fibrillation, on anticoagulation with Eliquis History of SVT with previous ablation History of pacemaker insertion Hypertension Hyperlipidemia PLAN: Continue current cardiac medications Patient is stable from a cardiac standpoint We will sign off. Please reconsult if needed. Nurse practitioner note has been reviewed by physician. Signing provider agrees with the documented findings, assessment, and plan of care. Objective - Vital Signs Vital signs: Vital Signs Temp 98.1 F 11/03/20 12:00 Pulse 83 11/03/20 12:00 Resp 17 11/03/20 12:00 BP 122/69 11/03/20 12:00 Pulse Ox 94 L 11/03/20 12:00 Intake & Output 11/02/20 11/03/20 11/03/20 18:59 06:59 18:59 Intake Total 509.52 Output Total 300 250 Balance 209.52 -250 Weight 95.254 kg 97.8 kg Intake: Intake, IV Titration 29.52 Amount Heparin Sod,Pork in 0.45% 29.52 NaCl 25,000 unit In 0.45 % NaCl 1 250ml.bag @ 10. 498 UNITS/KG/HR 10 mls/hr IV .Q24H ILYA Rx#: [id number] Oral 480 Output: Urine 300 250 Other: Voiding Method Toilet # Voids 1 1 - Labs CBC & Chem 7: 11/03/20 07:22 11/03/20 07:22 Labs: Abnormal Lab Results - Last 24 Hours (Table) 11/03/20 11/03/20 Range/Units 07:22 07:22 RBC 4.04 L (4.30-5.90) m/uL Plt Count 114 L (150-450) k/uL Lymphocytes # 0.8 L (1.0-4.8) k/uL Sodium 135 L (137-145) mmol/L Chloride 109 H (98-107) mmol/L Carbon Dioxide 21 L (22-30) mmol/L Calcium 7.9 L (8.4-10.2) mg/dL Microbiology - Last 24 Hours (Table) 11/01/20 19:31 Blood Culture Gram Stain - Final Blood Blood Culture - Final Bacillus species Not Anthracis 11/01/20 19:31 Blood Culture - Final Blood
[2020-11-03 16:49] VITALS: BP 127/70; TEMP 97.5
== END 2020-11-03 16:55 | disposition home or self-care (01) | DRG 194 ==
LOC: EC 16:55 → 3SCARD 22:01
PROVIDERS: ADMIT Hospitalist; ATTEND Hospitalist
DX: J18.9 Pneumonia, unspecified organism (principal); E87.1 Hypo-osmolality and hyponatremia; J44.0 Chronic obstructive pulmonary disease with (acute) lower respiratory infection; E78.5 Hyperlipidemia, unspecified; I48.0 Paroxysmal atrial fibrillation; Z95.0 Presence of cardiac pacemaker; Z88.1 Allergy status to other antibiotic agents; Z87.891 Personal history of nicotine dependence; Z79.899 Other long term (current) drug therapy; Z79.890 Hormone replacement therapy; Z79.82 Long term (current) use of aspirin; Z79.01 Long term (current) use of anticoagulants; Z20.822 Contact with and (suspected) exposure to COVID-19; N40.0 Benign prostatic hyperplasia without lower urinary tract symptoms; M19.90 Unspecified osteoarthritis, unspecified site; D72.810 Lymphocytopenia; E86.0 Dehydration; G89.29 Other chronic pain; H81.09 Meniere's disease, unspecified ear; I10 Essential (primary) hypertension; M54.9 Dorsalgia, unspecified
CPT/HCPCS: 36415; 71046; 74177; 80048; 80053; 81001; 83605; 83735; 84145; 84484; 85025; 85610; 85730; 87040; 87635; 93005; 93306; 96361; 96374; 96375; 99285

== ENCOUNTER 2021-05-10 05:54 | Inpatient (IN) | payer MEDICARE, OTHER ==
[2021-05-10] MEDS ORDERED: HYDROmorphone 0.5 MG/0.5 ML SYRINGE IVP STA (06:12)
[2021-05-10] MEDS ORDERED: SODIUM CHLORIDE 0.9% 1,000 ML IV STA (06:12)
[2021-05-10] MEDS ORDERED: ONDANSETRON 4 MG/2 ML VIAL IVP STA (06:12)
--- NOTE | 2021-05-10 06:15 | ED ---
General Adult HPI - General Stated complaint: Abd Pain Time Seen by Provider: 05/10/21 05:55 Source: patient, EMS, RN notes reviewed Mode of arrival: EMS Limitations: no limitations - History of Present Illness Initial comments: This a 72-year-old male presents emergency Department chief complaint of abdominal pain. Patient presents via EMS. Patient states pain started overnig ht patient states that he has had an episode of vomiting continues. Nausea, complains of diffuse severe abdominal pain states is very distended. He states he did have bowel movement which thinks it yesterday. Patient had prior colon resection, hernia repair. Patient denies any recent fevers or chills no chest pain or shortness of breath. Patient does have a history of A. fib. Patient denies dysuria hematuria denies any melena or hematochezia patient offers no other complaints. - Related Data Home Medications Medication Instructions Recorded Confirmed Finasteride [Proscar] 5 mg PO DAILY 10/03/14 11/01/20 Docusate [Colace] 100 mg PO BID 10/14/15 11/01/20 Apixaban [Eliquis] 5 mg PO BID 09/10/18 11/01/20 Fish Oil/Dha/Epa [Fish Oil 1,200 1 cap PO DAILY 09/10/18 11/01/20 mg Fish Oil] Levothyroxine Sodium [Synthroid] 50 mcg PO DAILY 09/10/18 11/01/20 Meclizine [Antivert] 12.5 mg PO DAILY 09/10/18 11/01/20 Metoprolol Tartrate [Lopressor] 25 mg PO BID 09/10/18 11/01/20 Simvastatin 40 mg PO HS 09/10/18 11/01/20 Tamsulosin [Flomax] 0.4 mg PO BID 09/10/18 11/01/20 Aspirin EC [Ecotrin Low Dose] 81 mg PO DAILY 03/03/20 11/01/20 HYDROcodone/APAP 10-325MG [[place] 1 tab PO 5XD 03/03/20 11/01/20 10-325] Multivit-Min/FA/Lycopen/Lutein 1 tab PO DAILY 03/03/20 11/01/20 [Centrum Silver Tablet] Previous Rx's Medication Instructions Recorded Doxycycline [Vibramycin] 100 mg PO BID 5 Days #10 cap 11/03/20 Allergies Allergy/AdvReac Type Severity Reaction Status Date / Time atorvastatin Allergy PER Verified 05/10/21 08:27 [facility] cephalexin [From Keflex] Allergy PER Verified 05/10/21 08:27 [facility] duloxetine Allergy PER Verified 05/10/21 08:27 [facility] escitalopram [From Lexapro] Allergy PER Verified 05/10/21 08:27 [facility] gabapentin Allergy PER Verified 05/10/21 08:27 [facility] levofloxacin [From Levaquin] Allergy PER Verified 05/10/21 08:27 [facility] niacin Allergy PER Verified 05/10/21 08:27 [facility] terazosin Allergy PER Verified 05/10/21 08:27 [facility] Review of Systems ROS Statement: Those systems with pertinent positive or pertinent negative responses have been documented in the HPI. ROS Other: All systems not noted in ROS Statement are negative. Past Medical History Past Medical History: Atrial Fibrillation, COPD, Hyperlipidemia, Hypertension, Prostate Disorder Additional Past Medical History / Comment(s): Meniere's disease, BPH, DJD, arthiritis, chronic bradycardia, and chronic back pain, diverticulitis. History of Any Multi-Drug Resistant Organisms: None Reported Date of last positivie culture/infection: 2001? MDRO Source:: KNEE Past Surgical History: Back Surgery, Bowel Resection, Hernia Repair, Orthopedic Surgery, Pacemaker Additional Past Surgical History / Comment(s): 04/11/15 EP STUDY . Low back surgery with rods and screws. Left knee fluid drained off and patellar scraped. RIGHT inguinal & abdominal hernia repair. Past Anesthesia/Blood Transfusion Reactions: No Reported Reaction Additional Past Anesthesia/Blood Transfusion Reaction / Comment(s): Pt has never recieved blood. Type of Cardiac Device: Permanent Pacemaker Device Placement Date:: Past Psychological History: No Psychological Hx Reported Additional Psychological History / Comment(s): Pt resides with his spouse. He uses a cane or walker to ambulate. He drives. Smoking Status: Former smoker Past Alcohol Use History: None Reported Additional Past Alcohol Use History / Comment(s): Pt quit smoking in 1967. SMOKED FOR 4-6 YRS. PPD-1. Past Drug Use History: None Reported - Past Family History Mother History Unknown: Yes Family Medical History: No Reported History Additional Family Medical History / Comment(s): passed at 79, unknown cause Father History Unknown: Yes Family Medical History: No Reported History Additional Family Medical History / Comment(s): passed at 81yrs. General Exam General appearance: alert, in no apparent distress Head exam: Present: atraumatic, normocephalic, normal inspection Eye exam: Present: normal appearance, PERRL, EOMI. Absent: scleral icterus, conjunctival injection, periorbital swelling ENT exam: Present: normal exam, normal oropharynx, mucous membranes moist Neck exam: Present: normal inspection, full ROM. Absent: tenderness, meningismus, lymphadenopathy Respiratory exam: Present: normal lung sounds bilaterally. Absent: respiratory distress, wheezes, rales, rhonchi, stridor Cardiovascular Exam: Present: regular rate, normal rhythm, normal heart sounds. Absent: systolic murmur, diastolic murmur, rubs, gallop, clicks GI/Abdominal exam: Present: soft, distended, tenderness, normal bowel sounds. Absent: guarding, rebound, rigid Back exam: Absent: CVA tenderness (R), CVA tenderness (L) Neurological exam: Present: alert Skin exam: Present: warm, dry, intact, normal color. Absent: rash Course Vital Signs 05/10/21 06:09 Temperature 97.5 F L Pulse Rate 72 Respiratory 18 Rate Blood Pressure 118/90 O2 Sat by Pulse 93 L Oximetry Medical Decision Making - Medical Decision Making 80-year-old presents for abdominal pain CT shows evidence of small bowel obstruction. I did receive a phone call from radiology. Patient did have NG ordered. Patient be admitted to medicine with consult surgery. - Lab Data Result diagrams: 05/10/21 06:45 05/10/21 09:56 Lab Results 05/10/21 05/10/21 05/10/21 Range/Units 06:45 06:45 08:19 WBC 22.1 H (3.8-10.6) k/uL RBC 6.08 H (4.30-5.90) m/uL Hgb 19.8 H* (13.0-17.5) gm/dL Hct 59.0 H* (39.0-53.0) % MCV 96.9 (80.0-100.0) fL MCH 32.5 (25.0-35.0) pg MCHC 33.5 (31.0-37.0) g/dL RDW 12.8 (11.5-15.5) % Plt Count 205 (150-450) k/uL MPV 7.9 Neutrophils % 87 % Lymphocytes % 5 % Monocytes % 5 % Eosinophils % 0 % Basophils % 1 % Neutrophils # 19.3 H (1.3-7.7) k/uL Lymphocytes # 1.2 (1.0-4.8) k/uL Monocytes # 1.2 H (0-1.0) k/uL Eosinophils # 0.1 (0-0.7) k/uL Basophils # 0.2 (0-0.2) k/uL Sodium (137-145) mmol/L Potassium (3.5-5.1) mmol/L Chloride (98-107) mmol/L Carbon Dioxide (22-30) mmol/L Anion Gap mmol/L BUN (9-20) mg/dL Creatinine (0.66-1.25) mg/dL Est GFR (CKD-EPI)AfAm (>60 ml/min/1.73 sqM) Est GFR (CKD-EPI)NonAf (>60 ml/min/1.73 sqM) Glucose (74-99) mg/dL Plasma Lactic Acid Jose 1.9 (0.7-2.0) mmol/L Calcium (8.4-10.2) mg/dL Total Bilirubin (0.2-1.3) mg/dL AST (17-59) U/L ALT (4-49) U/L Alkaline Phosphatase (38-126) U/L Total Protein (6.3-8.2) g/dL Albumin (3.5-5.0) g/dL Amylase (30-110) U/L Lipase (23-300) U/L Urine Color Yellow Urine Appearance Clear (Clear) Urine pH 6.0 (5.0-8.0) Ur Specific [place] 1.023 (1.001-1.035) Urine Protein Negative (Negative) Urine Glucose (UA) Negative (Negative) Urine Ketones Negative (Negative) Urine Blood Trace H (Negative) Urine Nitrite Negative (Negative) Urine Bilirubin Negative (Negative) Urine Urobilinogen <2.0 (<2.0) mg/dL Ur Leukocyte Esterase Negative (Negative) Urine RBC 11 H (0-5) /hpf Urine WBC 1 (0-5) /hpf Ur Squamous Epith Cells 1 (0-4) /hpf Urine Mucus Rare H (None) /hpf 05/10/21 Range/Units 09:56 WBC (3.8-10.6) k/uL RBC (4.30-5.90) m/uL Hgb (13.0-17.5) gm/dL Hct (39.0-53.0) % MCV (80.0-100.0) fL MCH (25.0-35.0) pg MCHC (31.0-37.0) g/dL RDW (11.5-15.5) % Plt Count (150-450) k/uL MPV Neutrophils % % Lymphocytes % % Monocytes % % Eosinophils % % Basophils % % Neutrophils # (1.3-7.7) k/uL Lymphocytes # (1.0-4.8) k/uL Monocytes # (0-1.0) k/uL Eosinophils # (0-0.7) k/uL Basophils # (0-0.2) k/uL Sodium 131 L (137-145) mmol/L Potassium 5.1 (3.5-5.1) mmol/L Chloride 97 L (98-107) mmol/L Carbon Dioxide 24 (22-30) mmol/L Anion Gap 10 mmol/L BUN 58 H (9-20) mg/dL Creatinine 1.34 H (0.66-1.25) mg/dL Est GFR (CKD-EPI)AfAm 59 (>60 ml/min/1.73 sqM) Est GFR (CKD-EPI)NonAf 51 (>60 ml/min/1.73 sqM) Glucose 122 H (74-99) mg/dL Plasma Lactic Acid Jose (0.7-2.0) mmol/L Calcium 8.9 (8.4-10.2) mg/dL Total Bilirubin 1.3 (0.2-1.3) mg/dL AST 27 (17-59) U/L ALT 48 (4-49) U/L Alkaline Phosphatase 79 (38-126) U/L Total Protein 6.6 (6.3-8.2) g/dL Albumin 3.8 (3.5-5.0) g/dL Amylase 106 (30-110) U/L Lipase 107 (23-300) U/L Urine Color Urine Appearance (Clear) Urine pH (5.0-8.0) Ur Specific [place] (1.001-1.035) Urine Protein (Negative) Urine Glucose (UA) (Negative) Urine Ketones (Negative) Urine Blood (Negative) Urine Nitrite (Negative) Urine Bilirubin (Negative) Urine Urobilinogen (<2.0) mg/dL Ur Leukocyte Esterase (Negative) Urine RBC (0-5) /hpf Urine WBC (0-5) /hpf Ur Squamous Epith Cells (0-4) /hpf Urine Mucus (None) /hpf Disposition Clinical Impression: Small bowel obstruction, Leukocytosis Disposition: ADMITTED IP TO THIS HOSP Condition: Fair Referrals: Sharron Ybarra III, MD [Primary Care Provider] - 1-2 days Time of Disposition: 11:32
[2021-05-10 07:23] LABS: Basophils # (A) 0.2 k/uL (0-0.2); Basophils % (A) 1 %; Eosinophils # (A) 0.1 k/uL (0-0.7); Eosinophils % (A) 0 %; Lymphocytes # (A) 1.2 k/uL (1.0-4.8); Lymphocytes % (A) 5 %; MCH 32.5 pg (25.0-35.0); MCHC 33.5 g/dL (31.0-37.0); MCV 96.9 fL (80.0-100.0); Mean Platelet Volume 7.9; Monocytes # (A) 1.2 k/uL (0-1.0); Monocytes % (A) 5 %; Neutrophils # (A) 19.3 k/uL (1.3-7.7); Neutrophils % (A) 87 %; Platelet Count 205 k/uL (150-450); RBC 6.08 m/uL (4.30-5.90); RDW 12.8 % (11.5-15.5); WBC 22.1 k/uL (3.8-10.6)
[2021-05-10 07:30] LABS: HGB 19.8 gm/dL (13.0-17.5)
[2021-05-10 09:34] LABS: Appearance,Urine Clear (Clear); Bilirubin,Urine Negative (Negative); Blood,Urine Trace (Negative); Color,Urine Yellow; Glucose,Urine (UA) Negative (Negative); Ketones,Urine Negative (Negative); Leukocyte Esterase,Urine Negative (Negative); Mucus,Urine Rare /hpf; Nitrite,Urine Negative (Negative); Protein,Urine Negative (Negative); RBC,Urine 11 /hpf (0-5); Specific Gravity,Urine 1.023 (1.001-1.035); Squamous Epithelial Cell,Urine 1 /hpf (0-4); Urobilinogen,Urine <2.0 mg/dL (<2.0); WBC,Urine 1 /hpf (0-5)
[2021-05-10 10:22] LABS: Albumin 3.8 g/dL (3.5-5.0); Calcium 8.9 mg/dL (8.4-10.2); Potassium 5.1 mmol/L (3.5-5.1); Total Bilirubin 1.3 mg/dL (0.2-1.3); Total Protein 6.6 g/dL (6.3-8.2)
[2021-05-10] MEDS ORDERED: ONDANSETRON 4 MG/2 ML VIAL IVP PRN (11:29)
[2021-05-10] MEDS ORDERED: NALOXONE 0.4 MG/ML 1 ML VIAL IV PRN (11:29)
--- NOTE | 2021-05-10 11:34 | CT ---
EXAMINATION TYPE: CT abdomen pelvis w con DATE OF EXAM: 05/10/2021 COMPARISON: 11/01/2020 HISTORY: Abdominal pain and distention CT DLP: 1722.7 mGycm Automated exposure control for dose reduction was used. CONTRAST: CT scan of the abdomen pelvis is performed with IV Contrast, patient injected with 80 mL of Isovue 30 0. FINDINGS- LUNG BASES-subsegmental basilar atelectasis favored over pneumonia. Heart is enlarged and there is ca rdiomegaly. Tiny pericardial effusion. LIVER/GB- No gross abnormality is appreciated. PANCREAS- No gross abnormality is seen. SPLEEN- No gross abnormality is seen. ADRENALS- No gross abnormality is seen. KIDNEYS/BLADDER- no hydronephrosis. Hypodensities within kidneys likely related to renal cysts. BOWEL-there is marked dilation of several small bowel loops including stomach. There is an abrupt valerie iber change within the midabdomen paracentrally to the left with normal filling distal loops. Finding s are felt to be highly suspicious for high-grade small bowel obstruction. Internal hernia or adhesio n not entirely excluded. Appendix normal.. LYMPH NODES- No greater than 1cm abdominal or pelvic lymph nodes areappreciated. OSSEOUS STRUCTURES-there appears to be severe multilevel degenerative disc disease with a scoliotic c urvature of the spine. Arthropathy of the hips. OTHER- postsurgical change anterior abdominal wall. Aorta of normal caliber with atherosclerotic rosa nges. Small bladder diverticulum suspected. Prostate is enlarged. Calcifications in pelvis likely vas cular. There is a bladder calculus. Incidental note made of a retroaortic left renal vein IMPRESSION- 1. Marked dilation of the proximal small bowel loops and stomach highly suggestive of a high-grade sm all bowel obstruction. Report called to the ER clinician 11:26 AM 05/10/2021. 2. 8 mm of posterior bladder calculus. Incidental note also made of anterior wall bladder diverticulu m 3. Cardiomegaly with a small pericardial effusion and basilar atelectasis favored over pneumonia. 4. Prostate hypertrophy
[2021-05-10] MEDS: HYDROmorphone 0.5 MG/0.5 ML SYRINGE IVP PRN ×3 (13:07→22:21)
[2021-05-10] MEDS: SODIUM CHLORIDE 0.9% 1,000 ML IV SCH ×2 (13:09→23:01)
--- NOTE | 2021-05-10 15:27 | XR ---
EXAMINATION TYPE: XR chest 1V portable DATE OF EXAM: 05/10/2021 HISTORY: Shortness of breath. COMPARISON: 11/01/2020 TECHNIQUE: Single view of the chest is submitted. FINDINGS: Demonstrated are scattered senescent parenchymal change. NG tube is seen coursing into the stomach. There is no evidence for focal infiltrate. The heart is stable. Hilar and mediastinal structures are within normal limits. Degenerative changes are seen of the dorsal spine. IMPRESSION: 1. Chronic changes without evidence for acute pulmonary disease.
--- NOTE | 2021-05-10 15:44 | HP ---
HISTORY AND PHYSICAL CHIEF COMPLAINT: Abdominal pain/distention and vomiting. HISTORY OF PRESENT ILLNESS: This 80-year-old gentleman with a past medical history of atrial fibrillation, COPD, hypertension, being followed by Dr. Ybarra in the outpatient setting also had previous abdominal surgery. The patient apparently ate so much broccoli according to the family and the patient is also rather constipated. The patient was also found to be dehydrated. There is no history of fever, rigors or chills. PAST MEDICAL HISTORY: History of atrial ablation, COPD. MEDICATIONS: Medications prior to admission include: Flomax, simvastatin, multivitamins. Other medications reviewed. ALLERGIES: ATORVASTATIN. OTHER ALLERGIES REVIEWED. FAMILY HISTORY: No history of heart disease or strokes in the family. SOCIAL HISTORY: Previous history of smoking. REVIEW OF SYSTEMS: 14-point review of systems negative except mentioned earlier. PHYSICAL EXAMINATION: Pulse 72, blood pressure 118/90, respiration 18, pulse ox 93% on room air. HEENT: Conjunctivae normal. NG tube present. NECK is no JVD. CARDIOVASCULAR: S1, S2 muffled. RESPIRATION: Breath sounds diminished in the bases. A few scattered rhonchi. ABDOMEN: Soft. Mild diffuse distention. Mild diffuse discomfort. No guarding. No rigidity. Bowel sounds diminished. No mass palpable. No ascites. LEGS: No edema. No swelling. NERVOUS SYSTEM: No focal deficits. SKIN: No ulcer, no rash and no bleeding. JOINTS: No active deforming arthropathy. LABS: At this times: WBC 20.2, hemoglobin 19.8, sodium 131, potassium 5.1. ASSESSMENT: 1. Acute bowel obstruction. 2. Dehydration with acute renal failure. 3. Elevated WBC. 4. Chronic obstructive pulmonary disease. 5. Atrial fibrillation. RECOMMENDATIONS AND DISCUSSION: In this 80-year-old gentleman who presented with multiple complex medical issues, we will monitor the patient closely. We will initiate home medications and CT scan reviewed. Surgical evaluation has been sought. I would also recommend empiric antibiotics, cultures and also resume the home medications . Prognosis guarded. Discussed with the family. MMODL / IJN: [id number] / [id number]
--- NOTE | 2021-05-10 17:01 | P.GSCN ---
History of Present Illness Consult date: 05/10/21 History of present illness: CHIEF COMPLAINT: Abdominal pain HISTORY OF PRESENT ILLNESS: This is a 80-year-old male who presented to the hospital with complaints of abdominal pain he's been having vomiting and abdominal distention. He thinks his last bowel movement was yesterday. He has had prior colon resection and hernia repair. Does have a history of atrial fibr illation. Computed tomography scan abdomen and pelvis had shown evidence of a high-grade small bowel obstruction. Patient has NG tube in place. Patient seen and examined with Dr. thornton. PAST MEDICAL HISTORY: Atrial Fibrillation, COPD, Hyperlipidemia, Hypertension, Prostate Disorder PAST SURGICAL HISTORY: Bowel resection and right inguinal and abdominal hernia repair, pacemaker MEDICATIONS: See list. ALLERGIES: See list. SOCIAL HISTORY: No illicit drug use. REVIEW OF SYSTEMS: CONSTITUTIONAL: Denies fever or chills. HEENT: Denies blurred vision, vision changes, or eye pain. Denies hemoptysis CARDIOVASCULAR: Denies chest pain or pressure. RESPIRATORY: No shortness of breath. GASTROINTESTINAL: See HPI for pertinent findings HEMATOLOGIC: Denies bleeding disorders. GENITOURINARY: Denies any blood in urine or increased urinary frequency. SKIN: Denies pruitis. Denies rash. PHYSICAL EXAM: VITAL SIGNS: Reviewed GENERAL: Well-developed in no acute distress. HEENT: No sclera icterus. Extraocular movements grossly intact. Moist buccal mucosa. Head is atraumatic, normocephalic. No nasal drainage. ABDOMEN: Soft. Distended. Diffuse tenderness. NEUROLOGIC: Alert and oriented. Cranial nerves II through XII grossly intact. LABORATORY DATA: WBC is 22.1 hemoglobin 19.8 platelets 205 Sodium 131 potassium 5.1 creatinine 1.34 Lactic acid 1.9 IMAGING: Computed tomography scan abdomen and pelvis marked dilation of the proximal small bowel loops and stomach highly suggestive of high-grade small bowel obstruction. 8 mm posterior bladder calculus incidental note also made of anterior wall bladder diverticulum. Cardiomegaly with small pericardial effusion and basilar atelectasis favored over pneumonia. Prostate hypertrophy. ASSESSMENT: 1. High-grade small bowel obstruction PLAN: -Patient scheduled for exploratory laparotomy tomorrow 05/11/[address] jean paul kirkpatrick -NG tube placed with decompression -Keep patient nothing by mouth -Keep Eliquis on hold -Patient also scheduled to be evaluated by cardiology for surgical clearance Thank you for this consult Physician [employer] Coloring Operator note has been reviewed by physician. Signing provider agrees with the documented findings, assessment, and plan of care. Past Medical History Past Medical History: Atrial Fibrillation, COPD, Hyperlipidemia, Hypertension, Prostate Disorder Additional Past Medical History / Comment(s): Meniere's disease, BPH, DJD, arthiritis, chronic bradycardia, and chronic back pain, diverticulitis. History of Any Multi-Drug Resistant Organisms: None Reported Year Discovered:: 2001? MDRO Source:: KNEE Past Surgical History: Back Surgery, Bowel Resection, Hernia Repair, Orthopedic Surgery, Pacemaker Additional Past Surgical History / Comment(s): 04/11/15 EP STUDY . Low back surgery with rods and screws. Left knee fluid drained off and patellar scraped. RIGHT inguinal & abdominal hernia repair. Past Anesthesia/Blood Transfusion Reactions: No Reported Reaction Additional Past Anesthesia/Blood Transfusion Reaction / Comm: Pt has never recieved blood. Type of Cardiac Device: Permanent Pacemaker Device Placement Date:: unk Past Psychological History: No Psychological Hx Reported Additional Psychological History / Comment(s): Pt resides with his spouse. He uses a cane or walker to ambulate. He drives. Smoking Status: Former smoker Past Alcohol Use History: None Reported Additional Past Alcohol Use History / Comment(s): Pt quit smoking in 1967. SMOKED FOR 4-6 YRS. PPD-1. Past Drug Use History: None Reported - Past Family History Mother History Unknown: Yes Family Medical History: No Reported History Additional Family Medical History / Comment(s): passed at 79, unknown cause Father History Unknown: Yes Family Medical History: No Reported History Additional Family Medical History / Comment(s): passed at 81yrs. Medications and Allergies Home Medications Medication Instructions Recorded Confirmed Type Finasteride [Proscar] 5 mg PO DAILY 10/03/14 05/10/21 History Docusate [Colace] 200 mg PO HS PRN 10/14/15 05/10/21 History Apixaban [Eliquis] 5 mg PO BID 09/10/18 05/10/21 History Fish Oil/Dha/Epa [Fish Oil 1,200 1 cap PO DAILY 09/10/18 05/10/21 History mg Fish Oil] Levothyroxine Sodium [Synthroid] 50 mcg PO DAILY 09/10/18 05/10/21 History Meclizine [Antivert] 12.5 mg PO DAILY 09/10/18 05/10/21 History Metoprolol Tartrate [Lopressor] 25 mg PO BID 09/10/18 05/10/21 History Simvastatin 40 mg PO HS 09/10/18 05/10/21 History Tamsulosin [Flomax] 0.4 mg PO BID 09/10/18 05/10/21 History Aspirin EC [Ecotrin Low Dose] 81 mg PO DAILY 03/03/20 05/10/21 History HYDROcodone/APAP 10-325MG [[place] 1 tab PO QID PRN 03/03/20 05/10/21 History 10-325] Multivit-Min/FA/Lycopen/Lutein 1 tab PO DAILY 03/03/20 05/10/21 History [Centrum Silver Tablet] Allergies Allergy/AdvReac Type Severity Reaction Status Date / Time atorvastatin Allergy PER Verified 05/10/21 12:51 [facility] cephalexin [From Keflex] Allergy PER Verified 05/10/21 12:51 [facility] duloxetine Allergy PER Verified 05/10/21 12:51 [facility] escitalopram [From Lexapro] Allergy PER Verified 05/10/21 12:51 [facility] gabapentin Allergy PER Verified 05/10/21 12:51 [facility] levofloxacin [From Levaquin] Allergy PER Verified 05/10/21 12:51 [facility] niacin Allergy PER Verified 05/10/21 12:51 [facility] terazosin Allergy PER Verified 05/10/21 12:51 [facility] Surgical - Exam Vital Signs Temp Pulse Resp BP Pulse Ox 97.5 F L 72 18 118/90 93 L 05/10/21 06:09 05/10/21 06:09 05/10/21 06:09 05/10/21 06:09 05/10/21 06:09 Results - Labs 05/10/21 06:45 05/10/21 09:56 Abnormal Lab Results - Last 24 Hours (Table) 05/10/21 05/10/21 05/10/21 Range/Units 06:45 08:19 09:56 WBC 22.1 H (3.8-10.6) k/uL RBC 6.08 H (4.30-5.90) m/uL Hgb 19.8 H* (13.0-17.5) gm/dL Hct 59.0 H* (39.0-53.0) % Neutrophils # 19.3 H (1.3-7.7) k/uL Monocytes # 1.2 H (0-1.0) k/uL Sodium 131 L (137-145) mmol/L Chloride 97 L (98-107) mmol/L BUN 58 H (9-20) mg/dL Creatinine 1.34 H (0.66-1.25) mg/dL Glucose 122 H (74-99) mg/dL Urine Blood Trace H (Negative) Urine RBC 11 H (0-5) /hpf Urine Mucus Rare H (None) /hpf Diabetes panel 05/10/21 Range/Units 09:56 Sodium 131 L (137-145) mmol/L Potassium 5.1 (3.5-5.1) mmol/L Chloride 97 L (98-107) mmol/L Carbon Dioxide 24 (22-30) mmol/L BUN 58 H (9-20) mg/dL Creatinine 1.34 H (0.66-1.25) mg/dL Glucose 122 H (74-99) mg/dL Calcium 8.9 (8.4-10.2) mg/dL AST 27 (17-59) U/L ALT 48 (4-49) U/L Alkaline Phosphatase 79 (38-126) U/L Total Protein 6.6 (6.3-8.2) g/dL Albumin 3.8 (3.5-5.0) g/dL Calcium panel 05/10/21 Range/Units 09:56 Calcium 8.9 (8.4-10.2) mg/dL Albumin 3.8 (3.5-5.0) g/dL Pituitary panel 05/10/21 Range/Units 09:56 Sodium 131 L (137-145) mmol/L Potassium 5.1 (3.5-5.1) mmol/L Chloride 97 L (98-107) mmol/L Carbon Dioxide 24 (22-30) mmol/L BUN 58 H (9-20) mg/dL Creatinine 1.34 H (0.66-1.25) mg/dL Glucose 122 H (74-99) mg/dL Calcium 8.9 (8.4-10.2) mg/dL Adrenal panel 03/09/22 Range/Units 09:56 Sodium 131 L (137-145) mmol/L Potassium 5.1 (3.5-5.1) mmol/L Chloride 97 L (98-107) mmol/L Carbon Dioxide 24 (22-30) mmol/L BUN 58 H (9-20) mg/dL Creatinine 1.34 H (0.66-1.25) mg/dL Glucose 122 H (74-99) mg/dL Calcium 8.9 (8.4-10.2) mg/dL Total Bilirubin 1.3 (0.2-1.3) mg/dL AST 27 (17-59) U/L ALT 48 (4-49) U/L Alkaline Phosphatase 79 (38-126) U/L Total Protein 6.6 (6.3-8.2) g/dL Albumin 3.8 (3.5-5.0) g/dL
[2021-05-10] MEDS: HEPARIN SODIUM,PORCINE/PF 5,000 UNIT/0.5 ML SYRINGE SQ SCH ×2 (17:42→22:16)
[2021-05-10] MEDS: metroNIDAZOLE-NS PMX 500 MG in SALINE 1 100ML.BAG IVPB SCH ×2 (17:42→22:56)
[2021-05-10] MEDS: TAMSULOSIN 0.4 MG CAP.ER.24H PO SCH (22:16)
[2021-05-10] MEDS: METOPROLOL TARTRATE 25 MG TAB PO SCH (22:17)
[2021-05-11] MEDS: HEPARIN SODIUM,PORCINE/PF 5,000 UNIT/0.5 ML SYRINGE SQ SCH ×2 (07:16→22:26)
[2021-05-11] MEDS: LEVOTHYROXINE 50 MCG TAB PO SCH (07:28)
[2021-05-11] MEDS: PANTOPRAZOLE 40 MG/10 ML VIAL IV SCH (07:29)
[2021-05-11] MEDS: metroNIDAZOLE-NS PMX 500 MG in SALINE 1 100ML.BAG IVPB SCH ×2 (07:29→15:29)
[2021-05-11] MEDS: SODIUM CHLORIDE 0.9% 1,000 ML IV SCH ×2 (07:29→21:37)
[2021-05-11] MEDS: TAMSULOSIN 0.4 MG CAP.ER.24H PO SCH ×2 (07:29→21:29)
[2021-05-11] MEDS: METOPROLOL TARTRATE 25 MG TAB PO SCH ×2 (07:29→21:29)
[2021-05-11 08:40] LABS: HCT 50.5 % (39.6-50.0); HGB 16.9 g/dL (13.0-17.0); MCH 31.5 pg (27.0-32.0); MCHC 33.5 g/dL (32.0-37.0); Mean Platelet Volume 10.3 fL (9.5-12.2); NRBC Per 100 WBC 0 /100 WBCS (0.0-0.0); Platelet Count 173 X 10*3/uL (140-440); RBC 5.37 X 10*6/uL (4.40-5.60); RDW 13.9 % (11.5-14.5); WBC 13.13 X 10*3/uL (4.50-10.00)
[2021-05-11 08:56] LABS: African American GFR (CKD) 74.1 (60.0-200.0); Albumin 3.4 g/dL (3.8-4.9); Albumin/Globulin Ratio 1.7 (1.60-3.17); Anion Gap 13.6 mmol/L (10.00-18.00); BUN/Creat Ratio 36.82 Ratio (12.00-20.00); Blood Urea Nitrogen 40.5 mg/dL (9.0-27.0); Calcium 8.1 mg/dL (8.7-10.3); Carbon Dioxide 21.4 mmol/L (20.0-27.5); Potassium 4.4 mmol/L (3.5-5.5); Total Bilirubin 1.1 mg/dL (0.30-1.20); Total Protein 5.4 g/dL (6.2-8.2)
--- NOTE | 2021-05-11 09:39 | P.CRDCN ---
History of Present Illness Consult date: 05/11/21 History of present illness: HISTORY OF PRESENT ILLNESS: This is a 80 year old male with a past medical history significant for sick sinus syndrome with previous pacemaker implantation, paroxysmal atrial fibrillation, moderate mitral regurgitation, hypothyroidism, and hyperlipidemia. Patient follows in the office with Dr. Triplett. We have been asked to see the patient in consultation for atrial fibrillation. Patient examined at the bedside. Patient is admitted to the hospital due to abdominal pain. Patient was found to have a high grade small bowel obstruction. He is scheduled for surgery today with Dr. Collado. Patient denies any chest pain or pressure. Denies SOB. Vital signs are stable. * EKG reveals atrial fibrillation with controlled ventricular rate * Chest xray chronic changes without evidence for acute pulmonary disease * Laboratory data: WBC 13.13. Hemoglobin 16.9. Platelet count 173. Sodium 137. Potassium 4.4. BUN 40. Creatinine 1.1. * Current home cardiac medications include simvastatin 40 mg at night, metoprolol titrate 25 mg twice a day, aspirin 81 mg daily, and eloquent 5 mg twice a day * Most recent echocardiogram obtained in February 2021 at the office revealed ejection fraction 55%, trace to mild aortic regurgitation, moderate MR, moderate TR REVIEW OF SYSTEMS: At the time of my exam: CONSTITUTIONAL: Denies fever or chills. HEENT: Denies blurred vision, vision changes, or eye pain. Denies hemoptysis CARDIOVASCULAR: Denies chest pain. Denies orthopnea. Denies PND. Denies palpitations RESPIRATORY: Denies shortness of breath. GASTROINTESTINAL + abdominal pain. HEMATOLOGIC: Denies bleeding disorders. GENITOURINARY: Denies any blood in urine. SKIN: Denies pruitis. Denies rash. PHYSICAL EXAM: VITAL SIGNS: Reviewed. GENERAL: Well-developed in no acute distress. HEENT: Head is normocephalic. Pupils are equal, round. Sclerae anicteric. Mucous membranes of the mouth are moist. Neck supple. No JVD or thyromegaly LUNGS: Respirations even and unlabored. Lungs essentially clear to auscultation bilaterally. HEART: Irregular rate and rhythm. S1 and S2 heard. ABDOMEN: Soft. + distended. + tenderness EXTREMITIES: Normal range of motion. No clubbing or cyanosis. Peripheral pulses intact. No lower extremity edema NEUROLOGIC: Awake and alert. Oriented x 3. ASSESSMENT: High grade small bowel obstruction Paroxysmal atrial fibrillation, on long-term anticoagulation with Eliquis Sick sinus syndrome with previous pacemaker implantation Valvular heart disease Hyperlipidemia Hypothyroidism PLAN: No need to repeat echo as this was performed in February 2021 at the office Eliquis on hold. Resume postoperatively when cleared by general surgery Patient has no complaints of angina and is clinically not in heart failure Recommend optimal blood pressure control Cautious fluid administration There are no absolute contraindications from a cardiac standpoint to proceed with surgery Further recommendations pending patient course Nurse practitioner note has been reviewed by physician. Signing provider agrees with the documented findings, assessment, and plan of care. Past Medical History Past Medical History: Atrial Fibrillation, COPD, Hyperlipidemia, Hypertension, Prostate Disorder Additional Past Medical History / Comment(s): Meniere's disease, BPH, DJD, arthiritis, chronic bradycardia, and chronic back pain, diverticulitis. History of Any Multi-Drug Resistant Organisms: None Reported Date of last positivie culture/infection: 2001? MDRO Source:: KNEE Past Surgical History: Back Surgery, Bowel Resection, Hernia Repair, Orthopedic Surgery, Pacemaker Additional Past Surgical History / Comment(s): 04/11/15 EP STUDY . Low back surgery with rods and screws. Left knee fluid drained off and patellar scraped. RIGHT inguinal & abdominal hernia repair. Past Anesthesia/Blood Transfusion Reactions: No Reported Reaction Additional Past Anesthesia/Blood Transfusion Reaction / Comment(s): Pt has never recieved blood. Type of Cardiac Device: Permanent Pacemaker Device Placement Date:: un Past Psychological History: No Psychological Hx Reported Additional Psychological History / Comment(s): Pt resides with his spouse. He uses a cane or walker to ambulate. He drives. Smoking Status: Former smoker Past Alcohol Use History: None Reported Additional Past Alcohol Use History / Comment(s): Pt quit smoking in 1967. SMOKED FOR 4-6 YRS. PPD-1. Past Drug Use History: None Reported - Past Family History Mother History Unknown: Yes Family Medical History: No Reported History Additional Family Medical History / Comment(s): passed at 79, unknown cause Father History Unknown: Yes Family Medical History: No Reported History Additional Family Medical History / Comment(s): passed at 81yrs. Medications and Allergies Home Medications Medication Instructions Recorded Confirmed Type Finasteride [Proscar] 5 mg PO DAILY 10/03/14 05/10/21 History Docusate [Colace] 200 mg PO HS PRN 10/14/15 05/10/21 History Apixaban [Eliquis] 5 mg PO BID 09/10/18 05/10/21 History Fish Oil/Dha/Epa [Fish Oil 1,200 1 cap PO DAILY 09/10/18 05/10/21 History mg Fish Oil] Levothyroxine Sodium [Synthroid] 50 mcg PO DAILY 09/10/18 05/10/21 History Meclizine [Antivert] 12.5 mg PO DAILY 09/10/18 05/10/21 History Metoprolol Tartrate [Lopressor] 25 mg PO BID 09/10/18 05/10/21 History Simvastatin 40 mg PO HS 09/10/18 05/10/21 History Tamsulosin [Flomax] 0.4 mg PO BID 09/10/18 05/10/21 History Aspirin EC [Ecotrin Low Dose] 81 mg PO DAILY 03/03/20 05/10/21 History HYDROcodone/APAP 10-325MG [[place] 1 tab PO QID PRN 03/03/20 05/10/21 History 10-325] Multivit-Min/FA/Lycopen/Lutein 1 tab PO DAILY 03/03/20 05/10/21 History [Centrum Silver Tablet] Allergies Allergy/AdvReac Type Severity Reaction Status Date / Time atorvastatin Allergy PER Verified 05/10/21 12:51 [facility] cephalexin [From Keflex] Allergy PER Verified 05/10/21 12:51 [facility] duloxetine Allergy PER Verified 05/10/21 12:51 [facility] escitalopram [From Lexapro] Allergy PER Verified 05/10/21 12:51 [facility] gabapentin Allergy PER Verified 05/10/21 12:51 [facility] levofloxacin [From Levaquin] Allergy PER Verified 05/10/21 12:51 [facility] niacin Allergy PER Verified 05/10/21 12:51 [facility] terazosin Allergy PER Verified 05/10/21 12:51 [facility] Physical Exam Vitals: Vital Signs Temp Pulse Pulse Resp BP BP Pulse Ox 05/11/21 07:17 97.7 F 83 118/73 92 L 05/11/21 02:00 98.3 F 61 16 127/77 94 L 05/10/21 22:15 88 05/10/21 20:00 98.4 F 52 L 16 135/82 95 05/10/21 13:37 98.4 F 74 18 124/77 96 05/10/21 13:09 98.6 F 71 18 130/79 96 Intake and Output 05/10/21 05/11/21 05/11/21 22:59 06:59 14:59 Intake Total 900 Balance 900 Intake: Intake, IV Titration 600 Amount Sodium Chloride 0.9% 1, 500 000 ml @ 75 mls/hr IV . [id number] [facility] Rx#:[id number] metroNIDAZOLE-NS PMX 500 100 mg In Saline 1 100ml.bag @ 100 mls/hr IVPB Q8HR [facility] Rx#:[id number] Oral 300 Other: Voiding Method Urinal # Voids 2 # Bowel Movements 0 Results 05/11/21 05:37 05/11/21 05:37 Cardiac Enzymes 05/10/21 05/11/21 Range/Units 09:56 05:37 AST 27 19 (17-59) U/L CBC 05/11/21 Range/Units 05:37 WBC 13.13 H (4.50-10.00) X 10*3/uL RBC 5.37 (4.40-5.60) X 10*6/uL Hgb 16.9 (13.0-17.0) g/dL Hct 50.5 H (39.6-50.0) % Plt Count 173 (140-440) X 10*3/uL Comprehensive Metabolic Panel 05/10/21 05/11/21 Range/Units 09:56 05:37 Sodium 131 L 137 (137-145) mmol/L Potassium 5.1 4.4 (3.5-5.1) mmol/L Chloride 97 L 102 (98-107) mmol/L Carbon Dioxide 24 21.4 (22-30) mmol/L BUN 58 H 40.5 H (9-20) mg/dL Creatinine 1.34 H 1.1 (0.66-1.25) mg/dL Glucose 122 H 133 H (74-99) mg/dL Calcium 8.9 8.1 L (8.4-10.2) mg/dL AST 27 19 (17-59) U/L ALT 48 36 (4-49) U/L Alkaline Phosphatase 79 63 (38-126) U/L Total Protein 6.6 5.4 L (6.3-8.2) g/dL Albumin 3.8 3.4 L (3.5-5.0) g/dL Current Medications Generic Name Dose Route Start Last Admin Trade Name Freq PRN Reason Stop Dose Admin Heparin Sodium (Porcine) 5,000 unit 05/10/21 14:45 05/11/21 07:16 Heparin Sodium,Porcine/Pf 5,000 Unit/0.5 Ml Syringe SQ Not Given Q12HR [facility] Hydromorphone HCl 0.5 mg 05/10/21 11:29 05/10/21 22:21 Hydromorphone 0.5 Mg/0.5 Ml Syringe IVP 0.5 mg Q3HR PRN Administration Moderate Pain Sodium Chloride 1,000 mls @ 75 mls/hr 05/10/21 11:15 05/11/21 07:29 Saline 0.9% IV 75 mls/hr .[id number] [facility] Administration Metronidazole 500 mg/ IV 100 mls @ 100 mls/hr 05/10/21 17:00 05/11/21 07:29 Solution IVPB 100 mls/hr Q8HR [facility] Administration Protocol Levothyroxine Sodium 50 mcg 05/11/21 06:30 05/11/21 07:28 Levothyroxine 50 Mcg Tab PO 50 mcg DAILY@0630 [facility] Administration Metoprolol Tartrate 25 mg 05/10/21 21:00 05/11/21 07:29 Metoprolol Tartrate 25 Mg Tab PO 25 mg BID [facility] Administration Naloxone HCl 0.2 mg 05/10/21 11:29 Naloxone 0.4 Mg/Ml 1 Ml Vial IV Q2M PRN Opioid Reversal Ondansetron HCl 4 mg 05/10/21 11:29 Ondansetron 4 Mg/2 Ml Vial IVP Q8HR PRN Nausea And Vomiting Pantoprazole Sodium 40 mg 05/11/21 09:00 05/11/21 07:29 Pantoprazole 40 Mg/10 Ml Vial IV 40 mg DAILY [facility] Administration Tamsulosin HCl 0.4 mg 05/10/21 21:00 05/11/21 07:29 Tamsulosin 0.4 Mg Cap.Er.24h PO 0.4 mg BID [facility] Administration Intake and Output 05/10/21 05/11/2122 22:59 06:59 14:59 Intake Total 900 Balance 900 Intake: Intake, IV Titration 600 Amount Sodium Chloride 0.9% 1, 500 000 ml @ 75 mls/hr IV . [id number] [facility] Rx#:[id number] metroNIDAZOLE-NS PMX 500 100 mg In Saline 1 100ml.bag @ 100 mls/hr IVPB Q8HR [facility] Rx#:[id number] Oral 300 Other: Voiding Method Urinal # Voids 2 # Bowel Movements 0 05/11/21 05:37 05/11/21 05:37
[2021-05-11 10:07] LABS: Basophils # (A) 0.05 X 10*3/uL (0.00-0.10); Basophils % (A) 0.4 %; Eosinophils # (A) 0 X 10*3/uL (0.04-0.35); Eosinophils % (A) 0 %; Immature Grans, Automated 0.9 %; Lymphocytes # (A) 0.51 X 10*3/uL (0.90-5.00); Lymphocytes % (A) 3.9 %; Monocytes # (A) 1.24 X 10*3/uL (0.20-1.00); Monocytes % (A) 9.4 %; Neutrophils # (A) 11.21 X 10*3/uL (1.80-7.70); Neutrophils % (A) 85.4 %
[2021-05-11 10:09] LABS: RBC Morphology NORMAL
--- NOTE | 2021-05-11 13:11 | P.CNPUL ---
History of Present Illness Consult date: 05/11/21 Chief complaint: History of COPD, small bowel obstruction History of present illness: 80-year-old white male patient with past medical history of smoking, stage II COPD, baseline FEV1 80% of predicted, obstructive sleep apnea on APAP therapy, benign prostatic hyperplasia, previous history of intestinal obstruction with bowel resection surgery, history of a permanent pacemaker insertion, chronic kidney disease, chronic paralysis of hemidiaphragm, atrial fibrillation on Eliquis, BPH, chronic back pain, former smoker. Patient came in on 05/10/2021 with complaints of abdominal pain and vomiting. CT of the abdomen and pelvis in the ER showing marked dilation of the proximal small bowel loops and stomach highly suggestive of high-grade small bowel obstruction, 8mm posterior bladder calculus, cardiomegaly with small pericardial effusion and basilar atelectasis, prostate hypertrophy. White blood cell count is 22.1, hemoglobin is 19.8, p latelet count was 205, sodium is 131, potassium is 5.1, chloride 97, CO2 is 24, BUN is 58, creatinine is 1.34, LFTs are within normal limits, amylase was 106, lipase was 107, urinalysis was negative for signs of infection. Surgical services have been consulted, NG tube has been inserted, patient remains nothing by mouth, he is scheduled for exploratory laparotomy on 05/11/[address] Collado, patient is getting IV hydration, alk phos is on hold. Denies any difficulty breathing, chest x-ray showing chronic changes without evidence for acute pulmonary disease. Review of Systems All systems: negative Constitutional: Denies chills, Denies fever Eyes: denies blurred vision, denies pain Ears, nose, mouth and throat: Denies headache, Denies sore throat Cardiovascular: Denies chest pain, Denies shortness of breath Respiratory: Reports dyspnea, Denies cough Gastrointestinal: Denies abdominal pain, Denies diarrhea, Denies nausea, Denies vomiting Musculoskeletal: Denies myalgias Integumentary: Denies pruritus, Denies rash Neurological: Denies numbness, Denies weakness Psychiatric: Denies anxiety, Denies depression Endocrine: Denies fatigue, Denies weight change Past Medical History Past Medical History: Atrial Fibrillation, COPD, Hyperlipidemia, Hypertension, Prostate Disorder Additional Past Medical History / Comment(s): Meniere's disease, BPH, DJD, arthiritis, chronic bradycardia, and chronic back pain, diverticulitis. History of Any Multi-Drug Resistant Organisms: None Reported Date of last positivie culture/infection: 2001? MDRO Source:: KNEE Past Surgical History: Back Surgery, Bowel Resection, Hernia Repair, Orthopedic Surgery, Pacemaker Additional Past Surgical History / Comment(s): 04/11/15 EP STUDY . Low back surgery with rods and screws. Left knee fluid drained off and patellar scraped. RIGHT inguinal & abdominal hernia repair. Past Anesthesia/Blood Transfusion Reactions: No Reported Reaction Additional Past Anesthesia/Blood Transfusion Reaction / Comment(s): Pt has never recieved blood. Type of Cardiac Device: Permanent Pacemaker Device Placement Date:: unk Past Psychological History: No Psychological Hx Reported Additional Psychological History / Comment(s): Pt resides with his spouse. He uses a cane or walker to ambulate. He drives. Smoking Status: Former smoker Past Alcohol Use History: None Reported Additional Past Alcohol Use History / Comment(s): Pt quit smoking in 1967. SMOKED FOR 4-6 YRS. PPD-1. Past Drug Use History: None Reported - Past Family History Mother History Unknown: Yes Family Medical History: No Reported History Additional Family Medical History / Comment(s): passed at 79, unknown cause Father History Unknown: Yes Family Medical History: No Reported History Additional Family Medical History / Comment(s): passed at 81yrs. Medications and Allergies Home Medications Medication Instructions Recorded Confirmed Type Finasteride [Proscar] 5 mg PO DAILY 10/03/14 05/10/21 History Docusate [Colace] 200 mg PO HS PRN 10/14/15 05/10/21 History Apixaban [Eliquis] 5 mg PO BID 09/10/18 05/10/21 History Fish Oil/Dha/Epa [Fish Oil 1,200 1 cap PO DAILY 09/10/18 05/10/21 History mg Fish Oil] Levothyroxine Sodium [Synthroid] 50 mcg PO DAILY 09/10/18 05/10/21 History Meclizine [Antivert] 12.5 mg PO DAILY 09/10/18 05/10/21 History Metoprolol Tartrate [Lopressor] 25 mg PO BID 09/10/18 05/10/21 History Simvastatin 40 mg PO HS 09/10/18 05/10/21 History Tamsulosin [Flomax] 0.4 mg PO BID 09/10/18 05/10/21 History Aspirin EC [Ecotrin Low Dose] 81 mg PO DAILY 03/03/20 05/10/21 History HYDROcodone/APAP 10-325MG [Dickinson 1 tab PO QID PRN 03/03/20 05/10/21 History 10-325] Multivit-Min/FA/Lycopen/Lutein 1 tab PO DAILY 03/03/20 05/10/21 History [Centrum Silver Tablet] Allergies Allergy/AdvReac Type Severity Reaction Status Date / Time atorvastatin Allergy PER Verified 05/10/21 12:51 [facility] cephalexin [From Keflex] Allergy PER Verified 05/10/21 12:51 [facility] duloxetine Allergy PER Verified 05/10/21 12:51 [facility] escitalopram [From Lexapro] Allergy PER Verified 05/10/21 12:51 [facility] gabapentin Allergy PER Verified 05/10/21 12:51 [facility] levofloxacin [From Levaquin] Allergy PER Verified 05/10/21 12:51 [facility] niacin Allergy PER Verified 05/10/21 12:51 [facility] terazosin Allergy PER Verified 05/10/21 12:51 [facility] Physical Exam Vitals: Vital Signs Temp Pulse Pulse Resp BP BP Pulse Ox 05/11/21 07:17 97.7 F 83 118/73 92 L 05/11/21 02:00 98.3 F 61 16 127/77 94 L 05/10/21 22:15 88 05/10/21 20:00 98.4 F 52 L 16 135/82 95 05/10/21 13:37 98.4 F 74 18 124/77 96 05/10/21 13:09 98.6 F 71 18 130/79 96 Intake and Output 05/10/21 05/11/21 05/11/21 22:59 06:59 14:59 Intake Total 900 Balance 900 Intake: Intake, IV Titration 600 Amount Sodium Chloride 0.9% 1, 500 000 ml @ 75 mls/hr IV . [id number] [facility] Rx#:[id number] metroNIDAZOLE-NS PMX 500 100 mg In Saline 1 100ml.bag @ 100 mls/hr IVPB Q8HR [facility] Rx#:[id number] Oral 300 Other: Voiding Method Urinal # Voids 2 # Bowel Movements 0 GENERAL EXAM: Alert, very pleasant 80-year-old white male with NG tube in place, to low intermittent suction, on room air with a pulse ox of 92-95% c omfortable in no apparent distress. HEAD: Normocephalic/atraumatic. EYES: Normal reaction of pupils, equal size. Conjunctiva pink, sclera white. NOSE: Clear with pink turbinates. THROAT: No erythema or exudates. NECK: No masses, no JVD, no thyroid enlargement, no adenopathy. CHEST: No chest wall deformity. Symmetrical expansion. LUNGS: Equal air entry with no crackles, wheeze, rhonchi or dullness. CVS: Regular rate and rhythm, normal S1 and S2, no gallops, no murmurs, no rubs ABDOMEN: Soft, nontender. No hepatosplenomegaly, normal bowel sounds, no guarding or rigidity. EXTREMITIES: No clubbing, no edema, no cyanosis, 2+ pulses and upper and lower extremities. MUSCULOSKELETAL: Muscle strength and tone normal. SPINE: No scoliosis or deformity SKIN: No rashes CENTRAL NERVOUS SYSTEM: Alert and oriented -3. No focal deficits, tone is normal in all 4 extremities. PSYCHIATRIC: Alert and oriented -3. Appropriate affect. Intact judgment and insight. Results - Laboratory Findings CBC and BMP: 05/11/21 05:37 05/11/21 05:37 Abnormal lab findings: Abnormal Labs 05/10/21 05/10/21 05/10/21 06:45 08:19 09:56 WBC 22.1 H RBC 6.08 H Hgb 19.8 H* Hct 59.0 H* Immature Gran # Neutrophils # 19.3 H Lymphocytes # Monocytes # 1.2 H Eosinophils # Sodium 131 L Chloride 97 L BUN 58 H Creatinine 1.34 H BUN/Creatinine Ratio Glucose 122 H Calcium Total Protein Albumin Urine Blood Trace H Urine RBC 11 H Urine Mucus Rare H 05/11/21 05/11/21 05:37 05:37 WBC 13.13 H RBC Hgb Hct 50.5 H Immature Gran # 0.12 H Neutrophils # 11.21 H Lymphocytes # 0.51 L Monocytes # 1.24 H Eosinophils # 0 L Sodium Chloride BUN 40.5 H Creatinine BUN/Creatinine Ratio 36.82 H Glucose 133 H Calcium 8.1 L Total Protein 5.4 L Albumin 3.4 L Urine Blood Urine RBC Urine Mucus - Diagnostic Findings Chest x-ray: report reviewed, image reviewed Additional studies: CT of the abdomen and pelvis reviewed Assessment and Plan Plan: Assessment: #1. High-grade small bowel obstruction, patient is scheduled for exploratory laparotomy on 05/11/2021 #2. Previous history of bowel resection #3. History of chronic atrial fibrillation, on Ahlquist which is on hold for surgery #4. History of sick sinus syndrome with history of pacemaker implantation #5. Hyperlipidemia #6. Hypothyroidism #7. Valvular heart disease #8. Mild COPD with baseline FEV1 of 80% Plan: Patient COPD stable at this time CT of the abdomen and pelvis and chest x-ray show no evidence of pneumonia, or any other acute pulmonary process Patient is breathing comfortably Scheduled for surgery today Follow the patient in the postoperative period and monitor his pulmonary status I have personally seen and examined the patient, performed the documentation and the assessment and plan as written. Number of minutes spent on the visit: [20] Time with Patient: Greater than 30
--- NOTE | 2021-05-11 14:09 | P.PN ---
Subjective Progress Note Date: 05/11/21 This is a pleasant 80-year-old male who was recently admitted with abdominal pain and discomfort with constipation and patient also found to be dehydrated and being closely monitored. Patient underwent CT abdomen and pelvis which showed marked dilation of several small bowel loops including the stomach with an abrupt caliber change within the mid abdomen. Centrally to the left with a normal filling distal loops and findings are felt to be highly suspicious for high-grade small bowel obstruction with internal hernia or adhesions not entirely excluded. Appendix appeared normal. Patient to continue with NG tube and nothing by mouth at this time. Cardiology consulted for surgical clearance which is currently pending. Patient denies any chest pain or shortness of breath. Patient is afebrile. Patient also continued on IV Protonix along with Flagyl an appropriate home medications have been resumed. Review of systems: Constitutional: reports of fatigue, no reports of fever, or chills Cardiovascular: No reports of chest pain or palpitations Respiratory: No reports of shortness of breath or cough GI: reports of nausea, no reports of of vomiting, reports of abdominal pain in the left and right lower quadrants : No reports of dysuria or retention Neurovascular: reports of generalized weakness All medications have been reviewed Active Medications Heparin Sodium (Porcine) (Heparin Sodium,Porcine/Pf 5,000 Unit/0.5 Ml Syringe) 5,000 unit SQ Q12HR [facility] Last Admin: 05/11/21 07:16 Dose: Not Given Documented by: Hydromorphone HCl (Hydromorphone 0.5 Mg/0.5 Ml Syringe) 0.5 mg IVP Q3HR PRN PRN Reason: Moderate Pain Last Admin: 05/10/21 22:21 Dose: 0.5 mg Documented by: Sodium Chloride (Saline 0.9%) 1,000 mls @ 75 mls/hr IV .[id number] [facility] Last Admin: 05/11/21 07:29 Dose: 75 mls/hr Documented by: Metronidazole 500 mg/ IV (Solution) 100 mls @ 100 mls/hr IVPB Q8HR [facility]; Protocol Last Admin: 05/11/21 07:29 Dose: 100 mls/hr Documented by: Levothyroxine Sodium (Levothyroxine 50 Mcg Tab) 50 mcg PO DAILY@0630 [facility] Last Admin: 05/11/21 07:28 Dose: 50 mcg Documented by: Metoprolol Tartrate (Metoprolol Tartrate 25 Mg Tab) 25 mg PO BID [facility] Last Admin: 05/11/21 07:29 Dose: 25 mg Documented by: Naloxone HCl (Naloxone 0.4 Mg/Ml 1 Ml Vial) 0.2 mg IV Q2M PRN PRN Reason: Opioid Reversal Ondansetron HCl (Ondansetron 4 Mg/2 Ml Vial) 4 mg IVP Q8HR PRN PRN Reason: Nausea And Vomiting Pantoprazole Sodium (Pantoprazole 40 Mg/10 Ml Vial) 40 mg IV DAILY [facility] Last Admin: 05/11/21 07: Dose: 40 mg Documented by: Tamsulosin HCl (Tamsulosin 0.4 Mg Cap.Er.24h) 0.4 mg PO BID [facility] Last Admin: 05/11/21 Dose: 0.4 mg Documented by: PHYSICAL EXAMINATION: GENERAL: The patient is lethargic although arousable, alert and oriented x4, Well developed, well nourished. HEENT: Pupils are round and equally reacting to light. EOMI. does have scleral icterus. No conjunctival pallor. Normocephalic, atraumatic. No pharyngeal erythe ma. No thyromegaly. NG tube noted CARDIOVASCULAR: S1 and S2 muffled PULMONARY: diminished breath sounds bilaterally with no wheezing or rhonchi noted. ABDOMEN: soft. tender on exam of the left and right lower quadrants. non- distended, sluggish bowel sounds. No palpable organomegaly. MUSCULOSKELETAL: No joint swelling or deformity. EXTREMITIES: No cyanosis, clubbing, or pedal edema. NEUROLOGICAL: Gross neurological examination did not reveal any focal deficits. SKIN: No rashes. Assessment: High-grade small bowel obstruction Dehydration with acute renal failure Elevated white blood count Paroxysmal atrial fibrillation History of sick sinus syndrome with pacemaker implantation Valvular heart disease Hyperlipidemia History of hypothyroidism Chronic obstructive pulmonary disease, not an exacerbation GI prophylaxis DVT prophylaxis Full code Plan: Recommend to continue with current medications and symptomatic management. General surgery following an plan is for possible exploratory laparotomy this afternoon and anticoagulant currently being held. Cardiology consulted for neli gical clearance and risk versus benefits explained and patient willing to proceed with exploratory laparotomy. Patient will continue with nothing by mouth and continue on NG tube and await surgical report. and daughter at the bedside and questions and concerns answered to the best of our ability. Recommend continue with gentle IV hydration and will repeat labs and monitor closely. Due to multiple complex medical issues, prognosis is guarded. The impression and plan of care has been dictated by Renu Cantu, nurse practitioner as directed. MD Wm I have performed a history and examination and MDM of this patient, discussed the same with the dictator, and agree with the dictator's assessment and plan as written ,documented as a scribe. Based on total visit time, I have performed more than 50% of the visit. Total number of minutes spent on this visit, 15 minutes. Any additional findings or plans will be noted. Objective - Vital Signs Vital signs: Vital Signs Temp 97.7 F 05/11/21 07:17 Pulse 83 05/11/21 07:17 Resp 16 05/11/21 02:00 BP 118/73 05/11/21 07:17 Pulse Ox 92 L 05/11/21 07:17 Intake & Output 05/10/21 05/11/21 05/11/21 18:59 06:59 18:59 Intake Total 900 Balance 900 Weight 88.904 kg Intake: Intake, IV Titration 600 Amount Sodium Chloride 0.9% 1, 500 000 ml @ 75 mls/hr IV . [id number] [facility] Rx#:[id number] metroNIDAZOLE-NS PMX 500 100 mg In Saline 1 100ml.bag @ 100 mls/hr IVPB Q8HR [facility] Rx#:[id number] Oral 300 Other: Voiding Method Urinal # Voids 2 # Bowel Movements 0 - Labs CBC & Chem 7: 05/11/21 05:37 05/11/21 05:37 Labs: Abnormal Lab Results - Last 24 Hours (Table) 05/10/21 05/10/21 05/11/21 Range/Units 08:19 09:56 05:37 WBC 13.13 H (4.50-10.00) X 10*3/uL Hct 50.5 H (39.6-50.0) % Sodium 131 L (137-145) mmol/L Chloride 97 L (98-107) mmol/L BUN 58 H (9-20) mg/dL Creatinine 1.34 H (0.66-1.25) mg/dL BUN/Creatinine Ratio (12.00-20.00) Ratio Glucose 122 H (74-99) mg/dL Calcium (8.7-10.3) mg/dL Total Protein (6.2-8.2) g/dL Albumin (3.8-4.9) g/dL Urine Blood Trace H (Negative) Urine RBC 11 H (0-5) /hpf Urine Mucus Rare H (None) /hpf 05/11/21 Range/Units 05:37 WBC (4.50-10.00) X 10*3/uL Hct (39.6-50.0) % Sodium (137-145) mmol/L Chloride (98-107) mmol/L BUN 40.5 H (9-20) mg/dL Creatinine (0.66-1.25) mg/dL BUN/Creatinine Ratio 36.82 H (12.00-20.00) Ratio Glucose 133 H (74-99) mg/dL Calcium 8.1 L (8.7-10.3) mg/dL Total Protein 5.4 L (6.2-8.2) g/dL Albumin 3.4 L (3.8-4.9) g/dL Urine Blood (Negative) Urine RBC (0-5) /hpf Urine Mucus (None) /hpf Microbiology - Last 24 Hours (Table) 05/10/21 18:44 Urine Culture - Preliminary Urine,Voided
[2021-05-11] MEDS: HYDROmorphone 0.5 MG/0.5 ML SYRINGE IVP PRN ×2 (14:23→22:57)
[2021-05-11] MEDS ORDERED: IV FLUID CONTINUATION 800 ML IV ONE (16:33)
[2021-05-11] MEDS ORDERED: fentaNYL (PF) 50 MCG/ML 2 ML AMP ONE (18:25)
[2021-05-11] MEDS ORDERED: LIDOCAINE 1% INJ 10MG/ML (20 ML MDV) ONE (18:25)
[2021-05-11] MEDS ORDERED: DEXAMETHASONE SOD PHOSPHATE 4 MG/ML 1 ML VIAL ONE (18:25)
[2021-05-11] MEDS ORDERED: PHENYLEPHRINE-0.9% NACL SYG 1,000 MCG/10 ML SYRINGE ONE (18:25)
[2021-05-11] MEDS ORDERED: ROCURONIUM 10 MG/ML (5 ML VIAL) IV ONE (18:25)
[2021-05-11] MEDS ORDERED: SUCCINYLCHOLINE CHLORIDE 100 MG/5 ML SYR IV ONE (18:25)
[2021-05-11] MEDS ORDERED: PROPOFOL 10 MG/ML 20 ML VIAL IV ONE (18:25)
[2021-05-11] MEDS ORDERED: HEPARIN SODIUM,PORCINE 5,000 UNIT/ML 1 ML VIAL ONE (18:25)
[2021-05-11] MEDS ORDERED: ONDANSETRON 4 MG/2 ML VIAL ONE (18:25)
[2021-05-11] MEDS ORDERED: SODIUM CHLORIDE 0.9% 50 ML with VASOPRESSIN 20 UNIT IVPB STA ×2 (19:35)
[2021-05-11] MEDS ORDERED: AMIODARONE 360 MG in DEXTROSE 5% IN WATER 200 ML IV ONE ×2 (20:00)
[2021-05-11] MEDS ORDERED: DEXTROSE 5% IN WATER 100 ML with AMIODARONE 150 MG IV ONE (20:00)
[2021-05-11] MEDS ORDERED: LACTATED RINGERS 1,000 ML IV ONE ×2 (20:27→20:28)
--- NOTE | 2021-05-11 20:42 | P.OP ---
Date of Procedure: 05/11/21 Preoperative Diagnosis: Small bowel obstruction Postoperative Diagnosis: Small bowel obstruction Extensive adhesions Intraperitoneal mesh A. fib with rapid ventricular rate Procedure(s) Performed: Exploratory laparotomy Removal of intraperitoneal mesh Lysis of extensive adhesions Small bowel resection Anesthesia: KARLI Surgeon: Yayo Collado Estimated Blood Loss (ml): 100 Condition: stable Disposition: ICU Operative Findings: Intraperitoneal mesh causing significant inflammatory response small bowel Description of Procedure: Patient's placed on the operating table in the supine position. He received general anesthesia. Upon induction of general anesthesia patient extreme hypotension. Patient was fluid resuscitated by anesthesia. He was then noted to be in atrial fibrillation rapid ventricular rate. Patient received a central line and art line. The patient was then placed on the operating table after approximately 20 minutes of resuscitation. His abdomen was prepped and draped usual fashion. The abdomen was entered through a midline scar. There were extensive adhesions to the peritoneal cavity. The patient had a piece of intraperitoneal mesh from previous hernia repair. The mesentery was secured with the spiral stainless steel tackers. This had created a significant inflammatory response with small bowel. There was a section of small bowel was matted and obstructed. Approximately 40 minutes operative time used to lyse adhesions in the small bowel. The matted section of small bowel next to the mesh was then transected proximally distally using the MARIANNA stapler and then the mesentery the bowel was divided with the Enseal device the specimen sent to pathology. A [id number] functional end-to-end staple anastomosis created using MARIANNA and TA stapler. The abdomen was areas of bleeding seen. Approximately 35 stainless steel tacks were removed from the mesh. In order to prevent future involvement of the small bowel. A portion of the mesh was cut free and sent to pathology. The fascia was then closed with looped #1 PDS suture. Skin was closed with tory. Patient was sent to the ICU intubated.
[2021-05-11] MEDS ORDERED: propofoL 100 ML IV ONE (20:49)
[2021-05-11 20:59] LABS: Glucose,Whole Blood 132 mg/dL (75-99)
[2021-05-11 21:17] LABS: ABG HCO3 21 mmol/L (21-25); ABG Oxygen Saturation 99.5 % (94-97); ABG PCO2 39 mmHg (35-45); ABG PH 7.34 (7.35-7.45); ABG PO2 231 mmHg (83-108); ABG TCO2 22 mmol/L (19-24); Allen Test Performed? Yes
--- NOTE | 2021-05-11 23:02 | XR ---
EXAMINATION TYPE: XR chest 1V portable DATE OF EXAM: 05/11/2021 COMPARISON: Yesterday HISTORY: Check tube placement TECHNIQUE: Single view FINDINGS: There is no heart failure nor confluent pneumonic infiltrate. There is some atelectasis lef t lung base. There is nasogastric tube in the stomach. There is endotracheal tube 3.5 cm from the car karsten. There is left axillary pacemaker. No pneumothorax. There is right jugular catheter with tip in t he superior vena cava. IMPRESSION: There is some pleural reaction and atelectasis left lung base. No heart failure. No signi ficant change compared to yesterday.
[2021-05-12] MEDS: metroNIDAZOLE-NS PMX 500 MG in SALINE 1 100ML.BAG IVPB SCH ×4 (00:01→23:57)
[2021-05-12] MEDS ORDERED: SODIUM CHLORIDE 0.9% 1,000 ML IV ONE ×2 (03:43→06:30)
[2021-05-12] MEDS: AMIODARONE 450 MG in DEXTROSE 5% IN WATER 250 ML IV SCH ×4 (03:47→18:19)
[2021-05-12] MEDS: HYDROmorphone 0.5 MG/0.5 ML SYRINGE IVP PRN ×4 (04:00→21:10)
[2021-05-12 04:17] LABS: Glucose,Whole Blood 134 mg/dL (75-99)
[2021-05-12 04:27] LABS: Potassium 4.3 mmol/L (3.5-5.1)
[2021-05-12 04:28] LABS: Calcium 6.7 mg/dL (8.4-10.2); Magnesium 1.8 mg/dL (1.6-2.3)
[2021-05-12 04:30] LABS: MCH 32.6 pg (25.0-35.0); MCHC 32.5 g/dL (31.0-37.0); MCV 100.6 fL (80.0-100.0); Macrocytosis Slight; Mean Platelet Volume 7.8; Platelet Count 136 k/uL (150-450); RBC 4.58 m/uL (4.30-5.90); RDW 13.8 % (11.5-15.5); WBC 7.4 k/uL (3.8-10.6)
[2021-05-12 04:33] LABS: HGB 14.9 gm/dL (13.0-17.5)
[2021-05-12 05:06] LABS: Band Neutrophils % 15 %; Metamyelocytes # (M) 0.07 k/uL (0); Metamyelocytes % 1 %; Monocytes # (M) 1.11 k/uL (0-1.0); Neutrophils % (M) 67 %; Nucleated Red Blood Cells 0 /100 WBC (0-0); Total Cells Counted 200
[2021-05-12 05:07] LABS: Poikilocytosis (M) Present
[2021-05-12] MEDS: MAGNESIUM SULFATE-D5W PMX 1 GM in DEXTROSE/WATER 1 100ML.BAG IVPB SCH ×2 (05:44→07:40)
[2021-05-12 06:31] LABS: ABG Base Excess -7.6 mmol/L; ABG HCO3 18 mmol/L (21-25); ABG Oxygen Saturation 98.7 % (94-97); ABG PCO2 32 mmHg (35-45); ABG PH 7.36 (7.35-7.45); ABG PO2 127 mmHg (83-108); ABG TCO2 19 mmol/L (19-24); Allen Test Performed? Yes
[2021-05-12] MEDS: LEVOTHYROXINE 50 MCG TAB PO SCH (06:36)
--- NOTE | 2021-05-12 08:20 | XR ---
EXAMINATION TYPE: XR chest 1V portable DATE OF EXAM: 05/12/2021 COMPARISON: X-ray dated 05/11/2021 HISTORY: Tube placement TECHNIQUE: Single frontal view of the chest is obtained. FINDINGS: High position of endotracheal tube with the tip is about 5.5 cm proximal to the rona. NG tube is se en with the tip is below the diaphragm. Right central venous line with the tip is likely within the r ight atrium. Left upper chest wall dual-lead pacemaker. Persistent elevation of the right hemidiaphragm. Small nyla ateral pleural effusions. Unchanged cardiomediastinal silhouette and bony thoracic cage. IMPRESSION: As above.
[2021-05-12] MEDS: PANTOPRAZOLE 40 MG/10 ML VIAL IV SCH (08:28)
[2021-05-12] MEDS: HEPARIN SODIUM,PORCINE/PF 5,000 UNIT/0.5 ML SYRINGE SQ SCH ×2 (08:28→21:09)
[2021-05-12] MEDS: TAMSULOSIN 0.4 MG CAP.ER.24H PO SCH ×2 (08:28→09:14)
[2021-05-12] MEDS: METOPROLOL TARTRATE 25 MG TAB PO SCH (08:29)
[2021-05-12] MEDS: CHLORHEXIDINE GLUCONATE 15 ML CUP MUCOUS MEM SCH ×2 (08:29→20:36)
--- NOTE | 2021-05-12 09:17 | P.PN ---
Subjective Progress Note Date: 05/12/21 Principal diagnosis: Abdominal pain 80-year-old white male patient with past medical history of smoking, stage II COPD, baseline FEV1 80% of predicted, obstructive sleep apnea on APAP therapy, benign prostatic hyperplasia, previous history of intestinal obstruction with bowel resection surgery, history of a permanent pacemaker insertion, chronic kidney disease, chronic paralysis of hemidiaphragm, atrial fibrillation on Eliquis, BPH, chronic back pain, former smoker. Patient came in on 05/10/2021 with complaints of abdominal pain and vomiting. CT of the abdomen and pelvis in the ER showing marked dilation of the proximal small bowel loops and stomach highly suggestive of high-grade small bowel obstruction, 8mm posterior bladder calculus, cardiomegaly with small pericardial effusion and basilar atelectasis, prostate hypertrophy. White blood cell count is 22.1, hemoglobin is 19.8, platelet count was 205, sodium is 131, potassium is 5.1, chloride 97, CO2 is 24, BUN is 58, creatinine is 1.34, LFTs are within normal limits, amylase was 106, lipase was 107, urinalysis was negative for signs of infection. Surgical services have been consulted, NG tube has been inserted, patient remains nothing by mouth, he is scheduled for exploratory laparotomy on 05/11/[address] Collado, patient is getting IV hydration, alk phos is on hold. Denies any difficulty breathing, chest x-ray showing chronic changes without evidence for acute pulmonary disease. On 05/12/2021 patient seen in follow-up in the intensive care unit, yesterday patient had exploratory laparotomy with removal of intraperitoneal mesh, lysis of extensive adhesions, and small bowel resection. Patient returned to the intensive care unit intubated and sedated. Currently remains on assist-control ventilation with a rate of 16, tidal volume 500, FiO2 of 50% and PEEP of 5. This morning's blood gas shows pO2 of 127, pCO2 of 32, and pH of 7.36 this was on 50% FiO2. Chest x-ray shows ET tube 5.5 cm above the rona, NG tube in appropriate position, with the tip below the diaphragm, and right central venous line with the tip within the right atrium. Persistent elevation of the right hemidiaphragm, small bilateral pleural effusions. Patient is currently on 0.9 normal saline at a rate of 75 ML per hour, amiodarone at 0.5 g/m, vasopressin is at 0.03 units per minute, and improving his at 3 mics per kilo per minute. Yesterday in the postoperative period patient went into A. fib with RVR, patient does have history of chronic A. fib, however she was loaded with amiodarone and started on amiodarone drip per protocol, currently heart rate is better controlled. Received 2 L in IV fluid boluses, and maintenance IV fluids infusing at 75 ML per hour, abiotic's in the form of Flagyl. Today's labs have been reviewed, white blood cell count is 7.4, hemoglobin is 14.9, platelet count is 136, sodium is 134, potassium is 4.3, chloride is 112, CO2 17, BUN is 33, creatinine is 1.01. Surgical incisions are clean dry and intact, abdomen is soft but tender to touch. NG tube remains in place, patient is nothing by mouth, no tube feedings or TPN yet. Will await further recommendations from surgery in regards to the timing of nutrition initiation. Objective - Vital Signs Vital signs: Vital Signs Temp 98.4 F 05/12/21 08:00 Pulse 92 05/12/21 08:00 Resp 21 05/12/21 08:00 BP 93/66 05/12/21 08:00 Pulse Ox 99 05/12/21 08:00 Intake & Output 05/11/21 05/12/21 05/12/21 18:59 06:59 18:59 Intake Total 500 3153.254 1178.486 Output Total 1078 65 Balance 500 2075.254 1113.486 Weight 96.7 kg Intake: IV 500 3100 1075 Sodium Chloride 0.9% 1, 600 75 000 ml @ 75 mls/hr IV . [id number] [facility] Rx#:[id number] Sodium Chloride 0.9% 1, 1000 1000 000 ml @ 999 mls/hr IV . Q1H1M [facility] Rx#:[id number] Intake, IV Titration 53.254 103.486 Amount propofoL 1,000 mg In 53.254 103.486 Empty Bag 1 bag @ 20 MCG/ KG/MIN 10.668 mls/hr IV . Q9H23M [facility] Rx#:[id number] Output: Urine 978 65 Estimated Blood Loss 100 Other: Voiding Method Indwelling Catheter Indwelling Catheter ABP, PAP, CO, CI - Last Documented Arterial Blood Pressure 105/58 - Exam GENERAL EXAM: Sedated, and intubated, 80-year-old white male, on assist control mode of ventilation with a rate of 16, tidal volume is 500, FiO2 50% and PEEP of 5. Comfortable in no apparent distress. HEAD: Normocephalic/atraumatic. EYES: Normal reaction of pupils, equal size. Conjunctiva pink, sclera white. NOSE: Clear with pink turbinates. THROAT: No erythema or exudates. NECK: No masses, no JVD, no thyroid enlargement, no adenopathy. CHEST: No chest wall deformity. Symmetrical expansion. LUNGS: Equal air entry with no crackles, wheeze, rhonchi or dullness. CVS: Irregular rate and rhythm, normal S1 and S2, no gallops, no murmurs, no rubs ABDOMEN: Soft, nontender. No hepatosplenomegaly, normal bowel sounds, no guarding or rigidity. Abdominal incision is clean dry and intact, abdomen is soft, but tender to touch, abdominal binder is in place EXTREMITIES: No clubbing, no edema, no cyanosis, 2+ pulses and upper and lower extremities. MUSCULOSKELETAL: Muscle strength and tone normal. SPINE: No scoliosis or deformity SKIN: No rashes CENTRAL NERVOUS SYSTEM: Sedated and intubated. No focal deficits, tone is normal in all 4 extremities. - Labs CBC & Chem 7: 05/12/21 04:05 05/12/21 04:05 Labs: Abnormal Lab Results - Last 24 Hours (Table) 05/11/21 05/11/21 05/11/21 Range/Units 05:37 20:58 21:12 MCV (80.0-100.0) fL Plt Count (150-450) k/uL Immature Gran # 0.12 H (0.00-0.04) X 10*3/uL Neutrophils # 11.21 H (1.80-7.70) X 10*3/uL Lymphocytes # 0.51 L (0.90-5.00) X 10*3/uL Lymphocytes # (Manual) (1.0-4.8) k/uL Monocytes # 1.24 H (0.20-1.00) X 10*3/uL Monocytes # (Manual) (0-1.0) k/uL Eosinophils # 0 L (0.04-0.35) X 10*3/uL Metamyelocytes # (Man) (0) k/uL ABG pH 7.34 L (7.35-7.45) ABG pCO2 (35-45) mmHg ABG pO2 231 H (83-108) mmHg ABG HCO3 (21-25) mmol/L ABG O2 Saturation 99.5 H (94-97) % Sodium (137-145) mmol/L Chloride (98-107) mmol/L Carbon Dioxide (22-30) mmol/L BUN (9-20) mg/dL Glucose (74-99) mg/dL POC Glucose (mg/dL) 132 H (75-99) mg/dL Calcium (8.4-10.2) mg/dL 05/12/21 05/12/21 05/12/21 Range/Units 04:05 04:05 04:05 MCV 100.6 H (80.0-100.0) fL Plt Count 136 L (150-450) k/uL Immature Gran # (0.00-0.04) X 10*3/uL Neutrophils # (1.80-7.70) X 10*3/uL Lymphocytes # (0.90-5.00) X 10*3/uL Lymphocytes # (Manual) 0.30 L (1.0-4.8) k/uL Monocytes # (0.20-1.00) X 10*3/uL Monocytes # (Manual) 1.11 H (0-1.0) k/uL Eosinophils # (0.04-0.35) X 10*3/uL Metamyelocytes # (Man) 0.07 H (0) k/uL ABG pH (7.35-7.45) ABG pCO2 (35-45) mmHg ABG pO2 (83-108) mmHg ABG HCO3 (21-25) mmol/L ABG O2 Saturation (94-97) % Sodium 134 L (137-145) mmol/L Chloride 112 H (98-107) mmol/L Carbon Dioxide 17 L (22-30) mmol/L BUN 33 H (9-20) mg/dL Glucose 144 H (74-99) mg/dL POC Glucose (mg/dL) 134 H (75-99) mg/dL Calcium 6.7 L (8.4-10.2) mg/dL 05/12/21 Range/Units 06:29 MCV (80.0-100.0) fL Plt Count (150-450) k/uL Immature Gran # (0.00-0.04) X 10*3/uL Neutrophils # (1.80-7.70) X 10*3/uL Lymphocytes # (0.90-5.00) X 10*3/uL Lymphocytes # (Manual) (1.0-4.8) k/uL Monocytes # (0.20-1.00) X 10*3/uL Monocytes # (Manual) (0-1.0) k/uL Eosinophils # (0.04-0.35) X 10*3/uL Metamyelocytes # (Man) (0) k/uL ABG pH (7.35-7.45) ABG pCO2 32 L (35-45) mmHg ABG pO2 127 H (83-108) mmHg ABG HCO3 18 L (21-25) mmol/L ABG O2 Saturation 98.7 H (94-97) % Sodium (137-145) mmol/L Chloride (98-107) mmol/L Carbon Dioxide (22-30) mmol/L BUN (9-20) mg/dL Glucose (74-99) mg/dL POC Glucose (mg/dL) (75-99) mg/dL Calcium (8.4-10.2) mg/dL Microbiology - Last 24 Hours (Table) 05/10/21 16:26 Blood Culture - Preliminary Blood No Growth after 24 hours Assessment and Plan Plan: Assessment: #1. High-grade small bowel obstruction, status post exploratory laparotomy on 05/11/2021, with extensive lysis of adhesions, intraperitoneal mesh removal, and small bowel resection #2. Routine postoperative ventilator management #3. A. fib with RVR in the postoperative period, has been started on amiodarone drip #4. Previous history of bowel resection #5. History of chronic atrial fibrillation, on Eliquis which is on hold for surgery #6. History of sick sinus syndrome with history of pacemaker implantation #7. Hyperlipidemia #8. Hypothyroidism #9. Valvular heart disease #10. Mild COPD with baseline FEV1 of 80% Plan: We'll proceed with sedation holiday, and spontaneous breathing trials Wean vasopressor support Monitor heart rate, blood pressure Continue amiodarone Continue antibiotics per surgery Maintain pain control Continue nebulized bronchodilators as needed His chest x-ray has been reviewed We'll advance ET tube 2 cm We'll proceed with spontaneous breathing trials with the goal of extubation Nutritional support per surgical recommendations GI and DVT prophylaxis We'll follow closely in the intensive care unit I have personally seen and examined the patient, performed the documentation and the assessment and plan as written. Number of minutes spent on the visit: [20] Time with Patient: Greater than 30
--- NOTE | 2021-05-12 10:22 | P.CRDCN ---
History of Present Illness Consult date: 05/12/21 History of present illness: HISTORY OF PRESENTING ILLNESS This is a pleasant 80-year-old male past medical history significant for atrial fibrillation on Eliquis, status post permanent pacemaker, chronic kidney disease, COPD, history of intestinal obstruction with bowel resection, chronic paralysis of hemidiaphragm. He follows in the office with Dr Triplett. We have bee n asked to see in consultation for atrial fibrillation. Patient presented to the ER with complaints of abdominal pain and vomiting patient's CT of thte abdomen was highly suggestive high-grade small bowel obstruction. Patient underwent an exploratory laparotomy with removal of intraperitoneal mesh, lysis of extensive adhesions, and small bowel resection yesterday. Patient is seen today in ICU intubated and sedated. Plans to proceed with sedation holiday today. Patients remains on IV amiodarone 0.5 mg and vasopressin is at 0.03 units per minute. Postoperative period patient went into A. fib with RVR, currently heart rate is better controlled. The patient will convert patient to oral amiodarone once extubated and able to tolerate oral medications. Eliquis remains on until cleared by surgery. Chest x-ray shows ET tube and NG tube in appropriate position, with the tip below the diaphragm, and right central venous line. Persistent elevation of the right hemidiaphragm, small bilateral pleural effusions. Current cardiac medications include IV amiodarone, subcutaneous heparin and vaso pressin Review of Systems REVIEW OF SYSTEMS At the time of my exam patient is sedated and mechanically ventilated: CONSTITUTIONAL: Denies fever or chills. EYES: Negative for vision changes ENT: Negative for hearing loss CARDIOVASCULAR: Denies chest pain, shortness of breath, diaphoresis, orthopnea, PND or palpitations. VASCULAR: Denies edema RESPIRATORY: Denies cough. GASTROINTESTINAL: Denies abdominal pain, diarrhea, constipation, nausea or vomiting. MUSCULOSKELETAL: Denies myalgias. NEUROLOGIC: Denies numbness, tingling, headache or weakness. ENDOCRINE: Denies fatigue, weight change, polydipsia or polyurina. GENITOURINARY: Denies burning, hematuria or urgency with micturation. HEMATOLOGIC: Denies history of anemia or bleeding. DERMATOLOGY: Denies rash or skin sores PSYCH: Patient sedated. Past Medical History Past Medical History: Atrial Fibrillation, COPD, Hyperlipidemia, Hypertension, Prostate Disorder Additional Past Medical History / Comment(s): Meniere's disease, BPH, DJD, ar thiritis, chronic bradycardia, and chronic back pain, diverticulitis. History of Any Multi-Drug Resistant Organisms: None Reported Date of last positivie culture/infection: 2001? MDRO Source:: KNEE Past Surgical History: Back Surgery, Bowel Resection, Hernia Repair, Orthopedic Surgery, Pacemaker Additional Past Surgical History / Comment(s): 04/11/15 EP STUDY . Low back surg duc with rods and screws. Left knee fluid drained off and patellar scraped. RIGHT inguinal & abdominal hernia repair. Past Anesthesia/Blood Transfusion Reactions: No Reported Reaction Additional Past Anesthesia/Blood Transfusion Reaction / Comment(s): Pt has never recieved blood. Type of Cardiac Device: Permanent Pacemaker Device Placement Date:: un Past Psychological History: No Psychological Hx Reported Additional Psychological History / Comment(s): Pt resides with his spouse. He uses a cane or walker to ambulate. He drives. Smoking Status: Former smoker Past Alcohol Use History: None Reported Additional Past Alcohol Use History / Comment(s): Pt quit smoking in 1967. SMOKED FOR 4-6 YRS. PPD-1. Past Drug Use History: None Reported - Past Family History Mother History Unknown: Yes Family Medical History: No Reported History Additional Family Medical History / Comment(s): passed at 79, unknown cause Father History Unknown: Yes Family Medical History: No Reported History Additional Family Medical History / Comment(s): passed at 81yrs. Medications and Allergies Home Medications Medication Instructions Recorded Confirmed Type Finasteride [Proscar] 5 mg PO DAILY 10/03/14 05/10/21 History Docusate [Colace] 200 mg PO HS PRN 10/14/15 05/10/21 History Apixaban [Eliquis] 5 mg PO BID 09/10/18 05/10/21 History Fish Oil/Dha/Epa [Fish Oil 1,200 1 cap PO DAILY 09/10/18 05/10/21 History mg Fish Oil] Levothyroxine Sodium [Synthroid] 50 mcg PO DAILY 09/10/18 05/10/21 History Meclizine [Antivert] 12.5 mg PO DAILY 09/10/18 05/10/21 History Metoprolol Tartrate [Lopressor] 25 mg PO BID 09/10/18 05/10/21 History Simvastatin 40 mg PO HS 09/10/18 05/10/21 History Tamsulosin [Flomax] 0.4 mg PO BID 09/10/18 05/10/21 History Aspirin EC [Ecotrin Low Dose] 81 mg PO DAILY 03/03/20 05/10/21 History HYDROcodone/APAP 10-325MG [[place] 1 tab PO QID PRN 03/03/20 05/10/21 History 10-325] Multivit-Min/FA/Lycopen/Lutein 1 tab PO DAILY 03/03/20 05/10/21 History [Centrum Silver Tablet] Allergies Allergy/AdvReac Type Severity Reaction Status Date / Time atorvastatin Allergy PER Verified 05/11/21 16:33 [facility] cephalexin [From Keflex] Allergy PER Verified 05/11/21 16:33 [facility] duloxetine Allergy PER Verified 05/11/21 16:33 [facility] escitalopram [From Lexapro] Allergy PER Verified 05/11/21 16:33 [facility] gabapentin Allergy PER Verified 05/11/21 16:33 [facility] levofloxacin [From Levaquin] Allergy PER Verified 05/11/21 16:33 [facility] niacin Allergy PER Verified 05/11/21 16:33 [facility] terazosin Allergy PER Verified 05/11/21 16:33 [facility] Physical Exam Vitals: Vital Signs Temp Pulse Pulse Resp BP BP Pulse Ox 05/12/21 09:15 80 20 100 05/12/21 09:00 82 20 100 05/12/21 08:45 84 16 100 05/12/21 08:30 83 18 99 05/12/21 08:15 76 18 99 05/12/21 08:00 98.4 F 92 21 93/66 99 05/12/21 07:45 91 17 93/66 100 05/12/21 07:30 87 18 93/66 100 05/12/21 07:15 84 17 93/66 100 05/12/21 07:00 89 17 100 05/12/21 06:45 98 18 99 05/12/21 06:30 90 18 99 05/12/21 06:15 95 19 99 05/12/21 06:00 91 18 93/66 99 05/12/21 05:45 94 18 99 05/12/21 05:30 93 19 104/73 99 05/12/21 05:15 96 16 99 05/12/21 05:00 98 17 100 05/12/21 04:45 102 H 19 100 05/12/21 04:30 86 18 99 05/12/21 04:15 98 17 100 05/12/21 04:00 98 F 82 20 100 05/12/21 03:45 80 19 104/73 100 05/12/21 03:30 80 16 100 05/12/21 03:15 93 20 100 05/12/21 03:00 95 16 100 05/12/21 02:45 72 17 100 05/12/21 02:30 81 17 100 05/12/21 02:15 80 16 100 05/12/21 02:00 72 16 100 05/12/21 01:45 79 16 100 05/12/21 01:30 80 17 100 05/12/21 01:15 82 16 100 05/12/21 01:00 77 16 90/67 100 05/12/21 00:45 84 16 100 05/12/21 00:30 69 16 100 05/12/21 00:15 70 16 100 05/12/21 00:00 98.1 F 87 16 100 05/11/21 23:45 77 16 100 05/11/21 23:44 16 05/11/21 23:30 90 16 100 05/11/21 23:20 78 16 88/54 100 05/11/21 23:10 81 16 113/66 100 05/11/21 23:00 84 20 100 05/11/21 22:50 92 17 97/76 98 05/11/21 22:40 84 19 99/78 99 05/11/21 22:30 96 18 98 05/11/21 22:20 79 19 87/67 97 05/11/21 22:10 82 19 94/66 97 05/11/21 22:00 92 17 98 05/11/21 21:50 92 18 96 05/11/21 21:40 103 H 19 105/56 97 05/11/21 21:30 111 H 19 96 05/11/21 21:20 107 H 16 99 05/11/21 21:16 16 05/11/21 21:10 112 H 16 131/95 99 05/11/21 21:00 118 H 16 128/85 100 05/11/21 20:50 105 H 16 128/85 100 05/11/21 20:46 98.2 F 92 16 100 05/11/21 16:34 98.7 F 86 18 124/71 94 L 05/11/21 13:58 98.5 F 89 134/79 93 L Intake and Output 05/11/21 05/12/21 05/12/21 22:59 06:59 14:59 Intake Total 2075 5829.020 3496.420 Output Total 810 268 115 Balance 1265 1946.096 8246.420 Intake: IV 2075 1525 1150 Sodium Chloride 0.9% 1, 75 525 150 000 ml @ 75 mls/hr IV . [id number] [facility] Rx#:[id number] Sodium Chloride 0.9% 1, 1000 1000 000 ml @ 999 mls/hr IV . Q1H1M [facility] Rx#:[id number] Intake, IV Titration 53.254 110.420 Amount propofoL 1,000 mg In 53.254 110.420 Empty Bag 1 bag @ 20 MCG/ KG/MIN 10.668 mls/hr IV . Q9H23M [facility] Rx#:[id number] Output: Urine 710 268 115 Estimated Blood Loss 100 Other: Voiding Method Indwelling Catheter Indwelling Catheter Indwelling Catheter Weight 96.7 kg ABP, PAP, CO, CI - Last 8 Hours Arterial Blood Pressure 94/50 Arterial Blood Pressure 96/48 Arterial Blood Pressure 111/55 Arterial Blood Pressure 100/52 Arterial Blood Pressure 97/47 Arterial Blood Pressure 105/58 Arterial Blood Pressure 102/56 Arterial Blood Pressure 96/53 Arterial Blood Pressure 107/56 Arterial Blood Pressure 103/58 Arterial Blood Pressure 86/51 Arterial Blood Pressure 91/52 Arterial Blood Pressure 92/53 Arterial Blood Pressure 96/52 Arterial Blood Pressure 90/54 Arterial Blood Pressure 94/57 Arterial Blood Pressure 91/54 Arterial Blood Pressure 90/53 Arterial Blood Pressure 106/59 Arterial Blood Pressure 86/57 Arterial Blood Pressure 102/56 Arterial Blood Pressure 95/54 Arterial Blood Pressure 92/54 Arterial Blood Pressure 99/52 Arterial Blood Pressure 107/60 Arterial Blood Pressure 91/49 Arterial Blood Pressure 96/53 Arterial Blood Pressure 101/59 PHYSICAL EXAMINATION Vitals reviewed Laboratory reviewed CONSTITUTIONAL: No apparent distress. HEENT: Head is normocephalic. Pupils are equal, round. Sclerae anicteric. Mucous membranes of the mouth are moist. NECK: No JVD. No carotid bruit. RESPIRATORY: Mechanically ventilated CARDIAC: Regular rate and rhythm. S1, S2 heard. No murmurs, gallops or rub. ABDOMEN: Soft, nontender. EXTREMITIES: 2+ peripheral pulses, no lower extremity edema and no calf tenderness. NEUROLOGIC EXAMINATION: Patient is awake, alert and oriented x3. INTEGUMENTARY: Warm, absent for rashes or sores PSYCH: Orientated to person, place, time, mood appropriate PSYCH: Sedated. Results 05/12/21 04:05 05/12/21 04:05 CBC 05/12/21 Range/Units 04:05 WBC 7.4 (3.8-10.6) k/uL RBC 4.58 (4.30-5.90) m/uL Hgb 14.9 D (13.0-17.5) gm/dL Hct 46.0 (39.0-53.0) % Plt Count 136 L (150-450) k/uL Comprehensive Metabolic Panel 05/12/21 Range/Units 04:05 Sodium 134 L (137-145) mmol/L Potassium 4.3 (3.5-5.1) mmol/L Chloride 112 H (98-107) mmol/L Carbon Dioxide 17 L (22-30) mmol/L BUN 33 H (9-20) mg/dL Creatinine 1.01 (0.66-1.25) mg/dL Glucose 144 H (74-99) mg/dL Calcium 6.7 L (8.4-10.2) mg/dL Current Medications Generic Name Dose Route Start Last Admin Trade Name Freq PRN Reason Stop Dose Admin Albuterol/Ipratropium 3 ml 05/11/21 14:05 Ipratropium-Albuterol 3 Ml Neb INHALATION RT-TID PRN Shortness Of Breath Or Wheezing Chlorhexidine Gluconate 15 ml 05/12/21 09:00 05/12/21 08:29 Chlorhexidine Gluconate 15 Ml Cup MUCOUS MEM 15 ml BID IL[facility] Administration Heparin Sodium (Porcine) 5,000 unit 05/10/21 14:45 05/12/21 08:28 Heparin Sodium,Porcine/Pf 5,000 Unit/0.5 Ml Syringe SQ 5,000 unit Q12HR IL[facility] Administration Hydromorphone HCl 0.5 mg 05/10/21 11:29 05/12/21 04:00 Hydromorphone 0.5 Mg/0.5 Ml Syringe IVP 0.5 mg Q3HR PRN Administration Moderate Pain Sodium Chloride 1,000 mls @ 75 mls/hr 05/10/21 11:15 05/11/21 21:37 Saline 0.9% IV 75 mls/hr .[id number] [facility] Administration Metronidazole 500 mg/ IV 100 mls @ 100 mls/hr 05/10/21 17:00 05/12/21 08:29 Solution IVPB 100 mls/hr Q8HR IL[facility] Administration Protocol Amiodarone HCl 450 mg/ 250 mls @ 16.667 mls/hr 05/12/21 02:00 05/12/21 03:47 Dextrose/Water IV 05/12/21 19:59 0.5 mg/min .Q15H [facility] 16.667 mls/hr Administration Protocol 0.5 MG/MIN Propofol 1,000 mg/ IV Solution 100 mls @ 10.668 mls/hr 05/11/21 21:30 09:14 IV 10 mcg/kg/min .Q9H23M [facility] 5.334 mls/hr Titration Protocol 20 MCG/KG/MIN Vasopressin 20 unit/ Sodium 51 mls @ 4.59 mls/hr 05/12/21 09:45 Chloride IVPB .Q11H7M [facility] 0.03 UNITS/MIN Levothyroxine Sodium 25 mcg 05/12/21 09:30 Levothyroxine Ivp 100 Mcg/5 Ml Vial IV DAILY [facility] Pantoprazole Sodium 40 mg 05/11/21 09:00 05/12/21 08:28 Pantoprazole 40 Mg/10 Ml Vial IV 40 mg DAILY ILYA Administration Intake and Output 05/11/21 05/12/21 05/12/21 22:59 06:59 14:59 Intake Total 2075 5924.141 2581.420 Output Total 810 268 115 Balance 1265 1255.283 9455.420 Intake: IV 2075 1525 1150 Sodium Chloride 0.9% 1, 75 525 150 000 ml @ 75 mls/hr IV . [id number] [facility] Rx#:[id number] Sodium Chloride 0.9% 1, 1000 1000 000 ml @ 999 mls/hr IV . Q1H1M [facility] Rx#:[id number] Intake, IV Titration 53.254 110.420 Amount propofoL 1,000 mg In 53.254 110.420 Empty Bag 1 bag @ 20 MCG/ KG/MIN 10.668 mls/hr IV . Q9H23M [facility] Rx#:[id number] Output: Urine 710 268 115 Estimated Blood Loss 100 Other: Voiding Method Indwelling Catheter Indwelling Catheter Indwelling Catheter Weight 96.7 kg 05/12/21 04:05 05/12/21 04:05 Assessment and Plan Assessment: High-grade small bowel obstruction, status post exploratory laparotomy on 05/11/2021, with extensive lysis of adhesions, intraperitoneal mesh removal, and small bowel resection Proximal atrial fibrillation with RVR on amiodarone drip Hyperlipidemia previous history of bowel resection Plan: Continue with IV amiodarone until patient is extubated and able to take oral medications. Once patient is extubated, discontinue IV amiodarone and start oral amiodarone 200 mg twice a day Continue to hold Eliquis until cleared by surgery Continue to titrate vasopressin as tolerated Continue with cardiac telemetry monitoring Continue with all other current cardiac medications Further recommendations based on clinical course The above impression and plan of care have been discussed and directed by the signing physician. Argelia Roblero, nurse practitioner, acting as scribe for signing physician.
[2021-05-12] MEDS: SODIUM CHLORIDE 0.9% 50 ML with VASOPRESSIN 20 UNIT IVPB SCH ×6 (11:27→21:09)
[2021-05-12] MEDS: SODIUM CHLORIDE 0.9% 1,000 ML IV SCH (11:28)
[2021-05-12 11:55] LABS: ABG Base Excess -8.1 mmol/L; ABG HCO3 18 mmol/L (21-25); ABG Oxygen Saturation 98.3 % (94-97); ABG PCO2 32 mmHg (35-45); ABG PH 7.35 (7.35-7.45); ABG PO2 126 mmHg (83-108); ABG TCO2 19 mmol/L (19-24); Allen Test Performed? Yes
[2021-05-12 12:28] LABS: INR 1.1 (<1.2); Partial Thromboplastin Time 33.2 sec (22.0-30.0); Prothrombin Time 11.8 sec (9.0-12.0)
[2021-05-12] MEDS: LEVOTHYROXINE IVP 100 MCG/5 ML VIAL IV SCH (12:41)
--- NOTE | 2021-05-12 13:24 | P.GSCN ---
History of Present Illness Consult date: 05/12/21 Reason for Consult: gross hematuria History of present illness: This is a 80-year-old male admitted to the hospital with bowel obstruction, und erwent A laparotomy by Dr. Collado. Postoperatively he developed gross hematuria. He is on eliquis at, but is currently on hold. He has followed up previously with Dr. Velarde for BPH and gross hematuria and had a cystoscopy done in 2019 that was within normal limits. Hematuria started this morning, no evidence of clot the catheter is flowing without issues. CT on presentation showed evidence of an 8 mm bladder stone, otherwise no upper tract pathology. Review of Systems - Constitutional Denies fever, Denies weight loss - Cardiovascular Denies chest pain, Denies shortness of breath - Gastrointestinal Reports abdominal pain - Genitourinary Reports hematuria - Integumentary Denies rash, Denies unusual bruising Past Medical History Past Medical History: Atrial Fibrillation, COPD, Hyperlipidemia, Hypertension, Prostate Disorder Additional Past Medical History / Comment(s): Meniere's disease, BPH, DJD, arthiritis, chronic bradycardia, and chronic back pain, diverticulitis. History of Any Multi-Drug Resistant Organisms: None Reported Year Discovered:: 2001? MDRO Source:: KNEE Past Surgical History: Back Surgery, Bowel Resection, Hernia Repair, Orthopedic Surgery, Pacemaker Additional Past Surgical History / Comment(s): 04/11/15 EP STUDY . Low back surgery with rods and screws. Left knee fluid drained off and patellar scraped. RIGHT inguinal & abdominal hernia repair. Past Anesthesia/Blood Transfusion Reactions: No Reported Reaction Additional Past Anesthesia/Blood Transfusion Reaction / Comm: Pt has never recieved blood. Type of Cardiac Device: Permanent Pacemaker Device Placement Date:: Past Psychological History: No Psychological Hx Reported Additional Psychological History / Comment(s): Pt resides with his spouse. He uses a cane or walker to ambulate. He drives. Smoking Status: Former smoker Past Alcohol Use History: None Reported Additional Past Alcohol Use History / Comment(s): Pt quit smoking in 1967. SMOKED FOR 4-6 YRS. PPD-1. Past Drug Use History: None Reported - Past Family History Mother History Unknown: Yes Family Medical History: No Reported History Additional Family Medical History / Comment(s): passed at 79, unknown cause Father History Unknown: Yes Family Medical History: No Reported History Additional Family Medical History / Comment(s): passed at 81yrs. Medications and Allergies Home Medications Medication Instructions Recorded Confirmed Type Finasteride [Proscar] 5 mg PO DAILY 10/03/14 05/10/21 History Docusate [Colace] 200 mg PO HS PRN 10/14/15 05/10/21 History Apixaban [Eliquis] 5 mg PO BID 09/10/18 05/10/21 History Fish Oil/Dha/Epa [Fish Oil 1,200 1 cap PO DAILY 09/10/18 05/10/21 History mg Fish Oil] Levothyroxine Sodium [Synthroid] 50 mcg PO DAILY 09/10/18 05/10/21 History Meclizine [Antivert] 12.5 mg PO DAILY 09/10/18 05/10/21 History Metoprolol Tartrate [Lopressor] 25 mg PO BID 09/10/18 05/10/21 History Simvastatin 40 mg PO HS 09/10/18 05/10/21 History Tamsulosin [Flomax] 0.4 mg PO BID 09/10/18 05/10/21 History Aspirin EC [Ecotrin Low Dose] 81 mg PO DAILY 03/03/20 05/10/21 History HYDROcodone/APAP 10-325MG [[place] 1 tab PO QID PRN 03/03/20 05/10/21 History 10-325] Multivit-Min/FA/Lycopen/Lutein 1 tab PO DAILY 03/03/20 05/10/21 History [Centrum Silver Tablet] Allergies Allergy/AdvReac Type Severity Reaction Status Date / Time atorvastatin Allergy PER Verified 05/11/21 16:33 [facility] cephalexin [From Keflex] Allergy PER Verified 05/11/21 16:33 [facility] duloxetine Allergy PER Verified 05/11/21 16:33 [facility] escitalopram [From Lexapro] Allergy PER Verified 05/11/21 16:33 [facility] gabapentin Allergy PER Verified 05/11/21 16:33 [facility] levofloxacin [From Levaquin] Allergy PER Verified 05/11/21 16:33 [facility] niacin Allergy PER Verified 05/11/21 16:33 [facility] terazosin Allergy PER Verified 05/11/21 16:33 [facility] Surgical - Exam Vital Signs Temp Pulse Resp BP Pulse Ox 97.5 F L 72 18 118/90 93 L 05/10/21 06:09 05/10/21 06:09 05/10/21 06:09 05/10/21 06:09 05/10/21 06:09 - General no distress, moderate pain - Eyes normal ocular movement, no pale - ENT normal nares, normal mucosa - Respiratory normal expansion, normal respiratory effort - Abdomen Abdomen: soft, tender (appropriately) - Genitourinary lange draining red urine no clots Results - Labs 05/12/21 04:05 05/12/21 04:05 Abnormal Lab Results - Last 24 Hours (Table) 05/11/21 05/11/21 05/12/21 Range/Units 20:58 21:12 04:05 MCV 100.6 H (80.0-100.0) fL Plt Count 136 L (150-450) k/uL Lymphocytes # (Manual) 0.30 L (1.0-4.8) k/uL Monocytes # (Manual) 1.11 H (0-1.0) k/uL Metamyelocytes # (Man) 0.07 H (0) k/uL APTT (22.0-30.0) sec ABG pH 7.34 L (7.35-7.45) ABG pCO2 (35-45) mmHg ABG pO2 231 H (83-108) mmHg ABG HCO3 (21-25) mmol/L ABG O2 Saturation 99.5 H (94-97) % Sodium (137-145) mmol/L Chloride (98-107) mmol/L Carbon Dioxide (22-30) mmol/L BUN (9-20) mg/dL Glucose (74-99) mg/dL POC Glucose (mg/dL) 132 H (75-99) mg/dL Calcium (8.4-10.2) mg/dL 05/12/21 05/12/21 05/12/21 Range/Units 04:05 04:05 06:29 MCV (80.0-100.0) fL Plt Count (150-450) k/uL Lymphocytes # (Manual) (1.0-4.8) k/uL Monocytes # (Manual) (0-1.0) k/uL Metamyelocytes # (Man) (0) k/uL APTT (22.0-30.0) sec ABG pH (7.35-7.45) ABG pCO2 32 L (35-45) mmHg ABG pO2 127 H (83-108) mmHg ABG HCO3 18 L (21-25) mmol/L ABG O2 Saturation 98.7 H (94-97) % Sodium 134 L (137-145) mmol/L Chloride 112 H (98-107) mmol/L Carbon Dioxide 17 L (22-30) mmol/L BUN 33 H (9-20) mg/dL Glucose 144 H (74-99) mg/dL POC Glucose (mg/dL) 134 H (75-99) mg/dL Calcium 6.7 L (8.4-10.2) mg/dL 05/12/21 05/12/21 Range/Units 11:51 12:06 MCV (80.0-100.0) fL Plt Count (150-450) k/uL Lymphocytes # (Manual) (1.0-4.8) k/uL Monocytes # (Manual) (0-1.0) k/uL Metamyelocytes # (Man) (0) k/uL APTT 33.2 H (22.0-30.0) sec ABG pH (7.35-7.45) ABG pCO2 32 L (35-45) mmHg ABG pO2 126 H (83-108) mmHg ABG HCO3 18 L (21-25) mmol/L ABG O2 Saturation 98.3 H (94-97) % Sodium (137-145) mmol/L Chloride (98-107) mmol/L Carbon Dioxide (22-30) mmol/L BUN (9-20) mg/dL Glucose (74-99) mg/dL POC Glucose (mg/dL) (75-99) mg/dL Calcium (8.4-10.2) mg/dL Microbiology - Last 24 Hours (Table) 05/10/21 16:26 Blood Culture - Preliminary Blood No Growth after 24 hours Diabetes panel 05/12/21 Range/Units 04:05 Sodium 134 L (137-145) mmol/L Potassium 4.3 (3.5-5.1) mmol/L Chloride 112 H (98-107) mmol/L Carbon Dioxide 17 L (22-30) mmol/L BUN 33 H (9-20) mg/dL Creatinine 1.01 (0.66-1.25) mg/dL Glucose 144 H (74-99) mg/dL Calcium 6.7 L (8.4-10.2) mg/dL Calcium panel 05/12/21 Range/Units 04:05 Calcium 6.7 L (8.4-10.2) mg/dL Pituitary panel 05/12/21 Range/Units 04:05 Sodium 134 L (137-145) mmol/L Potassium 4.3 (3.5-5.1) mmol/L Chloride 112 H (98-107) mmol/L Carbon Dioxide 17 L (22-30) mmol/L BUN 33 H (9-20) mg/dL Creatinine 1.01 (0.66-1.25) mg/dL Glucose 144 H (74-99) mg/dL Calcium 6.7 L (8.4-10.2) mg/dL Adrenal panel 05/12/21 Range/Units 04:05 Sodium 134 L (137-145) mmol/L Potassium 4.3 (3.5-5.1) mmol/L Chloride 112 H (98-107) mmol/L Carbon Dioxide 17 L (22-30) mmol/L BUN 33 H (9-20) mg/dL Creatinine 1.01 (0.66-1.25) mg/dL Glucose 144 H (74-99) mg/dL Calcium 6.7 L (8.4-10.2) mg/dL Assessment and Plan Assessment: 80-year-old male admitted to the hospital with bowel obstruction. Developed gross hematuria on postop day #1 status post exploratory laparoscopy. Had a c ystoscopy done for hematuria back stones in [address] is significant for a bladder stone and a significantly enlarged prostate. His hematuria is most likely secondary to trauma from the catheter. -Hold eliquis for now, can restart once hematuria clears up -Irrigate Lange when necessary -Continue Proscar and Flomax -Lange can be removed when hematuria resolves -We'll need outpatient follow-up with Dr. Velarde
--- NOTE | 2021-05-12 14:16 | P.PN ---
Subjective Progress Note Date: 05/12/21 CHIEF COMPLAINT: Small bowel obstruction HISTORY OF PRESENT ILLNESS: Patient is postop day #1 status post exploratory laparotomy, removal of intraperitoneal mesh, lysis of extensive adhesions and small bowel resection for small bowel obstruction, extensive adhesions, intraperitoneal mesh. Patient did have A. fib with RVR in OR. Patient will be seen by cardiology. Patient is currently intubated. They are working on weaning patient off of the vent today. He is requiring vasopressin for his hypotension. He is receiving IV fluids. And is currently on IV amiodarone for A. fib RVR. Patient did have gross hematuria. Evaluated by urology and felt likely it's due to Narvaez catheter trauma. Afebrile. WBC 7.4 hemoglobin 14.9 platelets 136 magnesium 1.8 being replaced sodium 134 potassium 4.3 creatinine 1.01 PHYSICAL EXAM: VITAL SIGNS: Reviewed. GENERAL: Intubated. HEENT: Moist buccal mucosa. Head is atraumatic, normocephalic. ABDOMEN: Soft. Distended. Incisional dressing clean dry and intact. Narvaez catheter with ely blood ASSESSMENT: 1. Status post exploratory laparotomy, removal of intraperitoneal mesh, lysis of extensive adhesions and small bowel resection for small bowel obstruction, extensive adhesions and intraperitoneal mesh 2. A. fib with RVR during surgery PLAN: -Continue ICU management -Continue supportive care -Vent management per pulmonary service -Continue IV fluids -Continue pain medication as needed -DVT prophylaxis subcu heparin. Continue to hold Eliquis for now -Continue GI prophylaxis Physician Measurement Coordinator note has been reviewed by physician. Signing provider agrees with the documented findings, assessment, and plan of care. Objective - Vital Signs Vital signs: Vital Signs Temp 99.8 F H 05/12/21 12:00 Pulse 105 H 05/12/21 12:00 Resp 17 05/12/21 12:00 BP 93/66 05/12/21 09:45 Pulse Ox 100 05/12/21 12:00 Intake & Output 05/11/21 05/12/21 05/12/21 18:59 06:59 18:59 Intake Total 500 3153.254 1497.399 Output Total 1078 205 Balance 500 2075.254 1292.399 Weight 96.7 kg Intake: IV 500 3100 1378 Pressure Bag 3 Sodium Chloride 0.9% 1, 600 375 000 ml @ 75 mls/hr IV . [id number] [facility] Rx#:[id number] Sodium Chloride 0.9% 1, 1000 1000 000 ml @ 999 mls/hr IV . Q1H1M [facility] Rx#:[id number] Intake, IV Titration 53.254 119.399 Amount propofoL 1,000 mg In 53.254 119.399 Empty Bag 1 bag @ 20 MCG/ KG/MIN 10.668 mls/hr IV . Q9H23M [facility] Rx#:[id number] Output: Urine 978 205 Estimated Blood Loss 100 Other: Voiding Method Indwelling Catheter Indwelling Catheter ABP, PAP, CO, CI - Last Documented Arterial Blood Pressure 100/46 - Labs CBC & Chem 7: 05/12/21 04:05 05/12/21 04:05 Labs: Abnormal Lab Results - Last 24 Hours (Table) 05/11/21 05/11/21 05/12/21 Range/Units 20:58 21:12 04:05 MCV 100.6 H (80.0-100.0) fL Plt Count 136 L (150-450) k/uL Lymphocytes # (Manual) 0.30 L (1.0-4.8) k/uL Monocytes # (Manual) 1.11 H (0-1.0) k/uL Metamyelocytes # (Man) 0.07 H (0) k/uL APTT (22.0-30.0) sec ABG pH 7.34 L (7.35-7.45) ABG pCO2 (35-45) mmHg ABG pO2 231 H (83-108) mmHg ABG HCO3 (21-25) mmol/L ABG O2 Saturation 99.5 H (94-97) % Sodium (137-145) mmol/L Chloride (98-107) mmol/L Carbon Dioxide (22-30) mmol/L BUN (9-20) mg/dL Glucose (74-99) mg/dL POC Glucose (mg/dL) 132 H (75-99) mg/dL Calcium (8.4-10.2) mg/dL 05/12/21 05/12/21 05/12/21 Range/Units 04:05 04:05 06:29 MCV (80.0-100.0) fL Plt Count (150-450) k/uL Lymphocytes # (Manual) (1.0-4.8) k/uL Monocytes # (Manual) (0-1.0) k/uL Metamyelocytes # (Man) (0) k/uL APTT (22.0-30.0) sec ABG pH (7.35-7.45) ABG pCO2 32 L (35-45) mmHg ABG pO2 127 H (83-108) mmHg ABG HCO3 18 L (21-25) mmol/L ABG O2 Saturation 98.7 H (94-97) % Sodium 134 L (137-145) mmol/L Chloride 112 H (98-107) mmol/L Carbon Dioxide 17 L (22-30) mmol/L BUN 33 H (9-20) mg/dL Glucose 144 H (74-99) mg/dL POC Glucose (mg/dL) 134 H (75-99) mg/dL Calcium 6.7 L (8.4-10.2) mg/dL 05/12/21 05/12/21 Range/Units 11:51 12:06 MCV (80.0-100.0) fL Plt Count (150-450) k/uL Lymphocytes # (Manual) (1.0-4.8) k/uL Monocytes # (Manual) (0-1.0) k/uL Metamyelocytes # (Man) (0) k/uL APTT 33.2 H (22.0-30.0) sec ABG pH (7.35-7.45) ABG pCO2 32 L (35-45) mmHg ABG pO2 126 H (83-108) mmHg ABG HCO3 18 L (21-25) mmol/L ABG O2 Saturation 98.3 H (94-97) % Sodium (137-145) mmol/L Chloride (98-107) mmol/L Carbon Dioxide (22-30) mmol/L BUN (9-20) mg/dL Glucose (74-99) mg/dL POC Glucose (mg/dL) (75-99) mg/dL Calcium (8.4-10.2) mg/dL Microbiology - Last 24 Hours (Table) 05/10/21 16:26 Blood Culture - Preliminary Blood No Growth after 24 hours
--- NOTE | 2021-05-12 15:21 | P.PN ---
Subjective Progress Note Date: 05/12/21 This is a pleasant 80-year-old male who was recently admitted with abdominal pain and discomfort with constipation and patient also found to be dehydrated and being closely monitored. Patient underwent CT abdomen and pelvis which showed marked dilation of several small bowel loops including the stomach with an abrupt caliber change within the mid abdomen. Centrally to the left with a normal filling distal loops and findings are felt to be highly suspicious for high-grade small bowel obstruction with internal hernia or adhesions not entirely excluded. Appendix appeared normal. Patient to continue with NG tube and nothing by mouth at this time. Cardiology consulted for surgical clearance which is currently pending. Patient denies any chest pain or shortness of breath. Patient is afebrile. Patient also continued on IV Protonix along with Flagyl an appropriate home medications have been resumed. 05/12/2021 Patient is seen and evaluated in follow-up continues to be closely monitored wi th multiple medical consultations following. Patient is status post exploratory laparotomy and underwent removal of intraperitoneal mesh, extensive lysis of adhesions, small bowel resection and is being closely monitored. Patient is in the ICU and is recently intubated and currently being weaned off sedation for possible extubation. Patient was also noted to have A. fib with RVR during surgery and cardiology is following. Patient with indwelling Narvaez catheter and noted hematuria and urology has been consulted. Urine culture finalized showing apparent skin and/or genital andreas. Patient is maintained on IV antibiotics in the form of Flagyl and will continue. On exam patient is awake and following the commands appropriately but somewhat confused per nursing staff. Chest x-ray this morning shows left upper chest wall dual-lead pacemaker with persistent elevation of the right hemidiaphragm and small bilateral pleural effusions unchanged. Review of systems: Unable to obtain as patient is currently intubated and being weaned from sedation All medications have been reviewed Active Medications Albuterol/Ipratropium (Ipratropium-Albuterol 3 Ml Neb) 3 ml INHALATION RT-TID PRN PRN Reason: Shortness Of Breath Or Wheezing Chlorhexidine Gluconate (Chlorhexidine Gluconate 15 Ml Cup) 15 ml MUCOUS MEM BID [facility] Last Admin: 05/12/21 08:29 Dose: 15 ml Documented by: Heparin Sodium (Porcine) (Heparin Sodium,Porcine/Pf 5,000 Unit/0.5 Ml Syringe) 5,000 unit SQ Q12HR [facility] Last Admin: 05/12/21 08:28 Dose: 5,000 unit Documented by: Hydromorphone HCl (Hydromorphone 0.5 Mg/0.5 Ml Syringe) 0.5 mg IVP Q3HR PRN PRN Reason: Moderate Pain Last Admin: 05/12/21 11:26 Dose: 0.5 mg Documented by: Sodium Chloride (Saline 0.9%) 1,000 mls @ 75 mls/hr IV .[id number] [facility] Last Admin: 05/12/21 11:28 Dose: 75 mls/hr Documented by: Metronidazole 500 mg/ IV (Solution) 100 mls @ 100 mls/hr IVPB Q8HR [facility]; Protocol Last Admin: 05/12/21 08:29 Dose: 100 mls/hr Documented by: Amiodarone HCl 450 mg/ (Dextrose/Water) 250 mls @ 16.667 mls/hr IV .Q15H [facility]; Protocol Stop: 05/12/21 19:59 Last Admin: 05/12/21 03:47 Dose: 0.5 mg/min, 16.667 mls/hr Documented by: Propofol 1,000 mg/ IV Solution 100 mls @ 10.668 mls/hr IV .Q9H23M [facility]; Protocol Last Titration: 05/12/21 10:55 Dose: 0 mcg/kg/min, 0 mls/hr Documented by: Vasopressin 20 unit/ Sodium (Chloride) 51 mls @ 4.59 mls/hr IVPB .Q11H7M [facility] Last Admin: 05/12/21 11:27 Dose: 4.59 mls/hr Documented by: Levothyroxine Sodium (Levothyroxine Ivp 100 Mcg/5 Ml Vial) 25 mcg IV DAILY [facility] Last Admin: 05/12/21 12:41 Dose: 25 mcg Documented by: Pantoprazole Sodium (Pantoprazole 40 Mg/10 Ml Vial) 40 mg IV DAILY [facility] Last Admin: 05/12/21 08:28 Dose: 40 mg Documented by: PHYSICAL EXAMINATION: GENERAL: The patient is intubated and weaning from sedation, Well developed, well nourished. HEENT: Pupils are round and equally reacting to light. EOMI. does have scleral icterus. No conjunctival pallor. Normocephalic, atraumatic. No pharyngeal erythema. No thyromegaly. NG tube noted CARDIOVASCULAR: S1 and S2 muffled PULMONARY: diminished breath sounds bilaterally with no wheezing or rhonchi noted. ABDOMEN: soft. Tender. non-distended, sluggish bowel sounds. No palpable organomegaly. Gross hematuria noted in the Narvaez catheter MUSCULOSKELETAL: No joint swelling or deformity. EXTREMITIES: No cyanosis, clubbing, or pedal edema. NEUROLOGICAL: Gross neurological examination did not reveal any focal deficits. SKIN: No rashes. Assessment: High-grade small bowel obstruction Status post exploratory laparotomy with removal of intraperitoneal mesh, lysis of extensive lesions and small bowel resection Atrial fibrillation with RVR during surgery Hematuria status post indwelling Narvaez catheter insertion Dehydration with acute renal failure Elevated white blood count Paroxysmal atrial fibrillation History of sick sinus syndrome with pacemaker implantation Valvular heart disease Hyperlipidemia History of hypothyroidism Chronic obstructive pulmonary disease, not an exacerbation GI prophylaxis DVT prophylaxis Full code Plan: Recommend to continue with current medications and symptomatic management. Patient is currently monitored closely in the ICU with multiple medical consultations following. Patient was noted to have gross hematuria noted in the Narvaez catheter and consulted urology which is pending. Patient is status post laparotomy with general surgery following closely. Patient continues to be intubated at this time and per nursing staff working on weaning sedation for possible extubation today. Patient continues on IV antibiotics and recommend continuing with close monitoring and repeat labs in the morning. Cardiology following as well. Oral Anticoagulant currently on hold and patient is continued on subcutaneous heparin. Patient will continue with nothing by mouth and continue on NG tube. Recommend continue with gentle IV hydration and will repeat labs and monitor closely. Due to multiple complex medical issues, prognosis is guarded. The impression and plan of care has been dictated by Renu Cantu, nurse practitioner as directed. MD Wm I have performed a history and examination and MDM of this patient, discussed the same with the dictator, and agree with the dictator's assessment and plan as written ,documented as a scribe. Based on total visit time, I have performed more than 50% of the visit. Total number of minutes spent on this visit, 15 minutes. Any additional findings or plans will be noted. Objective - Vital Signs Vital signs: Vital Signs Temp 98.4 F 05/12/21 08:00 Pulse 92 05/12/21 08:00 Resp 21 05/12/21 08:00 BP 93/66 05/12/21 08:00 Pulse Ox 99 05/12/21 08:00 Intake & Output 05/11/21 05/12/21 05/12/21 18:59 06:59 18:59 Intake Total 500 3153.254 1178.486 Output Total 1078 65 Balance 500 2075.254 1113.486 Weight 96.7 kg Intake: IV 500 3100 1075 Sodium Chloride 0.9% 1, 600 75 000 ml @ 75 mls/hr IV . [id number] [facility] Rx#:[id number] Sodium Chloride 0.9% 1, 1000 1000 000 ml @ 999 mls/hr IV . Q1H1M [facility] Rx#:[id number] Intake, IV Titration 53.254 103.486 Amount propofoL 1,000 mg In 53.254 103.486 Empty Bag 1 bag @ 20 MCG/ KG/MIN 10.668 mls/hr IV . Q9H23M [facility] Rx#:[id number] Output: Urine 978 65 Estimated Blood Loss 100 Other: Voiding Method Indwelling Catheter Indwelling Catheter ABP, PAP, CO, CI - Last Documented Arterial Blood Pressure 105/58 - Labs CBC & Chem 7: 05/12/21 04:05 05/12/21 04:05 Labs: Abnormal Lab Results - Last 24 Hours (Table) 05/11/21 05/11/21 05/11/21 Range/Units 05:37 05:37 20:58 MCV (80.0-100.0) fL Plt Count (150-450) k/uL Immature Gran # 0.12 H (0.00-0.04) X 10*3/uL Neutrophils # 11.21 H (1.80-7.70) X 10*3/uL Lymphocytes # 0.51 L (0.90-5.00) X 10*3/uL Lymphocytes # (Manual) (1.0-4.8) k/uL Monocytes # 1.24 H (0.20-1.00) X 10*3/uL Monocytes # (Manual) (0-1.0) k/uL Eosinophils # 0 L (0.04-0.35) X 10*3/uL Metamyelocytes # (Man) (0) k/uL ABG pH (7.35-7.45) ABG pCO2 (35-45) mmHg ABG pO2 (83-108) mmHg ABG HCO3 (21-25) mmol/L ABG O2 Saturation (94-97) % Sodium (137-145) mmol/L Chloride (98-107) mmol/L Carbon Dioxide (22-30) mmol/L BUN 40.5 H (9.0-27.0) mg/dL BUN/Creatinine Ratio 36.82 H (12.00-20.00) Ratio Glucose 133 H (70-110) mg/dL POC Glucose (mg/dL) 132 H (75-99) mg/dL Calcium 8.1 L (8.7-10.3) mg/dL Total Protein 5.4 L (6.2-8.2) g/dL Albumin 3.4 L (3.8-4.9) g/dL 05/11/21 05/12/21 05/12/21 Range/Units 21:12 04:05 04:05 MCV 100.6 H (80.0-100.0) fL Plt Count 136 L (150-450) k/uL Immature Gran # (0.00-0.04) X 10*3/uL Neutrophils # (1.80-7.70) X 10*3/uL Lymphocytes # (0.90-5.00) X 10*3/uL Lymphocytes # (Manual) 0.30 L (1.0-4.8) k/uL Monocytes # (0.20-1.00) X 10*3/uL Monocytes # (Manual) 1.11 H (0-1.0) k/uL Eosinophils # (0.04-0.35) X 10*3/uL Metamyelocytes # (Man) 0.07 H (0) k/uL ABG pH 7.34 L (7.35-7.45) ABG pCO2 (35-45) mmHg ABG pO2 231 H (83-108) mmHg ABG HCO3 (21-25) mmol/L ABG O2 Saturation 99.5 H (94-97) % Sodium 134 L (137-145) mmol/L Chloride 112 H (98-107) mmol/L Carbon Dioxide 17 L (22-30) mmol/L BUN 33 H (9.0-27.0) mg/dL BUN/Creatinine Ratio (12.00-20.00) Ratio Glucose 144 H (70-110) mg/dL POC Glucose (mg/dL) (75-99) mg/dL Calcium 6.7 L (8.7-10.3) mg/dL Total Protein (6.2-8.2) g/dL Albumin (3.8-4.9) g/dL 05/12/21 05/12/21 Range/Units 04:05 06:29 MCV (80.0-100.0) fL Plt Count (150-450) k/uL Immature Gran # (0.00-0.04) X 10*3/uL Neutrophils # (1.80-7.70) X 10*3/uL Lymphocytes # (0.90-5.00) X 10*3/uL Lymphocytes # (Manual) (1.0-4.8) k/uL Monocytes # (0.20-1.00) X 10*3/uL Monocytes # (Manual) (0-1.0) k/uL Eosinophils # (0.04-0.35) X 10*3/uL Metamyelocytes # (Man) (0) k/uL ABG pH (7.35-7.45) ABG pCO2 32 L (35-45) mmHg ABG pO2 127 H (83-108) mmHg ABG HCO3 18 L (21-25) mmol/L ABG O2 Saturation 98.7 H (94-97) % Sodium (137-145) mmol/L Chloride (98-107) mmol/L Carbon Dioxide (22-30) mmol/L BUN (9.0-27.0) mg/dL BUN/Creatinine Ratio (12.00-20.00) Ratio Glucose (70-110) mg/dL POC Glucose (mg/dL) 134 H (75-99) mg/dL Calcium (8.7-10.3) mg/dL Total Protein (6.2-8.2) g/dL Albumin (3.8-4.9) g/dL Microbiology - Last 24 Hours (Table) 05/10/21 16:26 Blood Culture - Preliminary Blood No Growth after 24 hours
[2021-05-13] MEDS: HYDROmorphone 0.5 MG/0.5 ML SYRINGE IVP PRN ×6 (00:17→21:54)
[2021-05-13] MEDS: SODIUM CHLORIDE 0.9% 1,000 ML IV SCH ×2 (03:20→16:36)
[2021-05-13 04:45] LABS: Basophils % (A) 0 %; Eosinophils % (A) 0 %; HCT 39.1 % (39.0-53.0); HGB 12.8 gm/dL (13.0-17.5); Lymphocytes # (A) 0.4 k/uL (1.0-4.8); Lymphocytes % (A) 3 %; MCH 32.1 pg (25.0-35.0); MCHC 32.7 g/dL (31.0-37.0); MCV 98.2 fL (80.0-100.0); Mean Platelet Volume 8.4; Monocytes # (A) 0.7 k/uL (0-1.0); Monocytes % (A) 6 %; Neutrophils # (A) 10.5 k/uL (1.3-7.7); Neutrophils % (A) 90 %; Platelet Count 111 k/uL (150-450); RBC 3.98 m/uL (4.30-5.90); RDW 13.4 % (11.5-15.5); WBC 11.6 k/uL (3.8-10.6)
[2021-05-13 04:59] LABS: Magnesium 2.4 mg/dL (1.6-2.3); Potassium 4.1 mmol/L (3.5-5.1)
--- NOTE | 2021-05-13 06:51 | XR ---
EXAMINATION TYPE: XR chest 1V portable DATE OF EXAM: 05/13/2021 COMPARISON: 05/12/2021 HISTORY: Shortness of breath TECHNIQUE: Single frontal view of the chest is obtained. FINDINGS: There is an NG tube stomach. There is a central venous catheter on the right terminates in the SVC/R junction. There is a 2-lead cardiac pacemaker. There are small bilateral pleural effusions and retrocardiac infiltrate unchanged compared to previou s. There is no pneumothorax. The osseous structures are intact. Heart size is normal and the vasculat ure is not congested. IMPRESSION: No interval change in the retrocardiac opacity and small bilateral pleural effusions.
[2021-05-13] MEDS: CHLORHEXIDINE GLUCONATE 15 ML CUP MUCOUS MEM SCH (09:07)
[2021-05-13] MEDS: SODIUM CHLORIDE 0.9% 50 ML with VASOPRESSIN 20 UNIT IVPB SCH ×2 (09:07)
[2021-05-13] MEDS: metroNIDAZOLE-NS PMX 500 MG in SALINE 1 100ML.BAG IVPB SCH ×3 (09:41→23:35)
[2021-05-13] MEDS: HEPARIN SODIUM,PORCINE/PF 5,000 UNIT/0.5 ML SYRINGE SQ SCH ×2 (09:41→21:55)
[2021-05-13] MEDS: LEVOTHYROXINE IVP 100 MCG/5 ML VIAL IV SCH (09:41)
[2021-05-13] MEDS: PANTOPRAZOLE 40 MG/10 ML VIAL IV SCH (09:42)
--- NOTE | 2021-05-13 10:23 | P.PN ---
Subjective Progress Note Date: 05/13/21 Principal diagnosis: Bowel obstruction. 80-year-old white male patient with past medical history of smoking, stage II COPD, baseline FEV1 80% of predicted, obstructive sleep apnea on APAP therapy, benign prostatic hyperplasia, previous history of intestinal obstruction with bowel resection surgery, history of a permanent pacemaker insertion, chronic kidney disease, chronic paralysis of hemidiaphragm, atrial fibrillation on Eliquis, BPH, chronic back pain, former smoker. Patient came in on 05/10/2021 with complaints of abdominal pain and vomiting. CT of the abdomen and pelvis in the ER showing marked dilation of the proximal small bowel loops and stomach highly suggestive of high-grade small bowel obstruction, 8mm posterior bladder calculus, cardiomegaly with small pericardial effusion and basilar atelectasis, prostate hypertrophy. White blood cell count is 22.1, hemoglobin is 19.8, platelet count was 205, sodium is 131, potassium is 5.1, chloride 97, CO2 is 24, BUN is 58, creatinine is 1.34, LFTs are within normal limits, amylase was 106, lipase was 107, urinalysis was negative for signs of infection. Surgical services have been consulted, NG tube has been inserted, patient remains nothing by mouth, he is scheduled for exploratory laparotomy on 05/11/[address] Collado, patient is getting IV hydration, alk phos is on hold. Denies any difficulty breathing, chest x-ray showing chronic changes without evidence for acute pulmonary disease. On 05/12/2021 patient seen in follow-up in the intensive care unit, yesterday patient had exploratory laparotomy with removal of intraperitoneal mesh, lysis of extensive adhesions, and small bowel resection. Patient returned to the intensive care unit intubated and sedated. Currently remains on assist-control ventilation with a rate of 16, tidal volume 500, FiO2 of 50% and PEEP of 5. This morning's blood gas shows pO2 of 127, pCO2 of 32, and pH of 7.36 this was on 50% FiO2. Chest x-ray shows ET tube 5.5 cm above the rona, NG tube in appropriate position, with the tip below the diaphragm, and right central venous line with the tip within the right atrium. Persistent elevation of the right hemidiaphragm, small bilateral pleural effusions. Patient is currently on 0.9 normal saline at a rate of 75 ML per hour, amiodarone at 0.5 g/m, vasopressin is at 0.03 units per minute, and improving his at 3 mics per kilo per minute. Yesterday in the postoperative period patient went into A. fib with RVR, patient does have history of chronic A. fib, however she was loaded with amiodarone and started on amiodarone drip per protocol, currently heart rate is better controlled. Received 2 L in IV fluid boluses, and maintenance IV fluids infusing at 75 ML per hour, abiotic's in the form of Flagyl. Today's labs have been reviewed, white blood cell count is 7.4, hemoglobin is 14.9, platelet count is 136, sodium is 134, potassium is 4.3, chloride is 112, CO2 17, BUN is 33, creatinine is 1.01. Surgical incisions are clean dry and intact, abdomen is soft but tender to touch. NG tube remains in place, patient is nothing by mouth, no tube feedings or TPN yet. Will await further recommendations from surgery in regards to the timing of nutrition initiation. Progress note dated 05/13/2021. 80-year-old male, postop day #2, status post laparotomy, with removal of intraperitoneal mesh, lysis of extensive adhesions, and small bowel resection. The patient was extubated on May 12. Currently, resting comfortably in the intensive care unit, room 263. He's on 2 L nasal cannula. NG tube still in place. The patient's on saline at 75 mL an hour. He is getting amiodarone at 0.5 mg/m. The patient is chronically in atrial fibrillation. White count 11.6, hemoglobin 12.8, hematocrit 39.1, platelet count 111,000. Sodium 135, potassium 4.1, chlorides 111, CO2 21, anion gap 3, BUN 27, and creatinine 1.05. Microbiologic studies are all negative. Chest x-ray shows small bilateral effusions, and some retrocardiac infiltrate or atelectasis. Objective - Vital Signs Vital signs: Vital Signs Temp 98.2 F 05/13/21 08:00 Pulse 85 05/13/21 09:00 Resp 15 05/13/21 09:00 BP 101/82 05/12/21 19:00 Pulse Ox 99 05/13/21 09:00 Intake & Output 05/12/21 05/13/21 05/13/21 18:59 06:59 18:59 Intake Total 2307.626 1014 156 Output Total 395 535 60 Balance 1912.626 479 96 Weight 97.8 kg Intake: IV 1946 1014 156 Pressure Bag 21 39 6 Sodium Chloride 0.9% 1, 825 975 150 000 ml @ 75 mls/hr IV . [id number] [facility] Rx#:[id number] Sodium Chloride 0.9% 1, 1000 000 ml @ 999 mls/hr IV . Q1H1M [facility] Rx#:[id number] metroNIDAZOLE-NS PMX 500 100 mg In Saline 1 100ml.bag @ 100 mls/hr IVPB Q8HR [facility] Rx#:[id number] Intake, IV Titration 361.626 Amount Amiodarone 450 mg In 242.227 Dextrose 5% in Water 250 ml @ 0.5 MG/MIN 16.667 mls/hr IV .Q15H [facility] Rx#: [id number] propofoL 1,000 mg In 119.399 Empty Bag 1 bag @ 20 MCG/ KG/MIN 10.668 mls/hr IV . Q9H23M [facility] Rx#:[id number] Output: Gastric Drainage 150 Urine 395 385 60 Other: Voiding Method Indwelling Catheter Indwelling Catheter Indwelling Catheter ABP, PAP, CO, CI - Last Documented Arterial Blood Pressure 111/51 - Exam No acute distress, oriented 3. Nasal O2 at 2 L. HEENT examination is grossly unremarkable. NG tube in place. Neck supple. Full range of motion. No adenopathy thyromegaly or neck vein distention. Cardiovascular examination reveals an irregular rhythm and rate. S1-S2 normal. No S3 or S4. No discernible murmur noted. Heart rate 85 bpm. Lungs reveal mostly clear breath sounds. Mild scattered rhonchi. No wheezes or crackles. Breath sounds equal bilaterally. Saturations are 99% on 2 L. Abdomen soft, without bowel sounds. Minimal tenderness. Extremities are intact. No cyanosis clubbing or edema. Skin is without rash or lesion. Neurologic examination is brief but nonfocal. - Labs CBC & Chem 7: 05/13/21 04:30 05/13/21 04:30 Labs: Abnormal Lab Results - Last 24 Hours (Table) 05/12/21 05/12/21 05/13/21 Range/Units 11:51 12:06 04:30 WBC 11.6 H (3.8-10.6) k/uL RBC 3.98 L (4.30-5.90) m/uL Hgb 12.8 L (13.0-17.5) gm/dL Plt Count 111 L (150-450) k/uL Neutrophils # 10.5 H (1.3-7.7) k/uL Lymphocytes # 0.4 L (1.0-4.8) k/uL APTT 33.2 H (22.0-30.0) sec ABG pCO2 32 L (35-45) mmHg ABG pO2 126 H (83-108) mmHg ABG HCO3 18 L (21-25) mmol/L ABG O2 Saturation 98.3 H (94-97) % Sodium (137-145) mmol/L Chloride (98-107) mmol/L Carbon Dioxide (22-30) mmol/L BUN (9-20) mg/dL Glucose (74-99) mg/dL Calcium (8.4-10.2) mg/dL Magnesium (1.6-2.3) mg/dL 05/13/21 Range/Units 04:30 WBC (3.8-10.6) k/uL RBC (4.30-5.90) m/uL Hgb (13.0-17.5) gm/dL Plt Count (150-450) k/uL Neutrophils # (1.3-7.7) k/uL Lymphocytes # (1.0-4.8) k/uL APTT (22.0-30.0) sec ABG pCO2 (35-45) mmHg ABG pO2 (83-108) mmHg ABG HCO3 (21-25) mmol/L ABG O2 Saturation (94-97) % Sodium 135 L (137-145) mmol/L Chloride 111 H (98-107) mmol/L Carbon Dioxide 21 L (22-30) mmol/L BUN 27 H (9-20) mg/dL Glucose 112 H (74-99) mg/dL Calcium 7.0 L (8.4-10.2) mg/dL Magnesium 2.4 H (1.6-2.3) mg/dL Microbiology - Last 24 Hours (Table) 05/10/21 16:26 Blood Culture - Preliminary Blood No Growth after 48 hours 05/10/21 18:44 Urine Culture - Final Urine,Voided Assessment and Plan Assessment: Postop day #2, status post exploratory laparotomy, lysis of adhesions, removal of intraperitoneal mesh, and small bowel resection, for high-grade small bowel obstruction. Routine postoperative ventilator management, with extubation on 05/12/2021. Chronic atrial fibrillation. Prior history of bowel resection. History of sick sinus syndrome, status post pacemaker implantation. Hyperlipidemia. Hypothyroidism. Valvular heart disease. Mild COPD with an FEV1 of 80% of predicted. Plan: Plan dated 05/13/2021. The patient was extubated yesterday, May 12. Currently, he's postop day #2. He's on 2 L nasal cannula. This can probably be weaned off. NG tube remains in place. He is getting saline at 75 mL an hour. He's also on amiodarone 0.5 mg/m. He remains in atrial fibrillation but his rate is controlled. We'll continue with incentive spirometer, and recommendation to deep breathe, cough, and clear secretions. Continue GI and DVT prophylaxis. Continue bronchodilators. We will continue pain control. Prognosis is guarded. Time with Patient: Greater than 30
[2021-05-13] MEDS: AMIODARONE 450 MG in DEXTROSE 5% IN WATER 250 ML IV SCH ×2 (10:30)
--- NOTE | 2021-05-13 12:05 | P.PN ---
Subjective Progress Note Date: 05/13/21 Principal diagnosis: Small bowel obstruction Patient doing well today. He was extubated yesterday. Mild pain. He is thirsty. No bowel function. Nasogastric tube remains in place. Remains distended. Objective - Vital Signs Vital signs: Vital Signs Temp 98.2 F 05/13/21 08:00 Pulse 85 05/13/21 09:00 Resp 15 05/13/21 09:00 BP 101/82 05/12/21 19:00 Pulse Ox 99 05/13/21 09:00 Intake & Output 05/12/21 05/13/21 05/13/21 18:59 06:59 18:59 Intake Total 2307.626 1014 156 Output Total 395 535 60 Balance 1912.626 479 96 Weight 97.8 kg Intake: IV 1946 1014 156 Pressure Bag 21 39 6 Sodium Chloride 0.9% 1, 825 975 150 000 ml @ 75 mls/hr IV . [id number] [facility] Rx#:[id number] Sodium Chloride 0.9% 1, 1000 000 ml @ 999 mls/hr IV . Q1H1M [facility] Rx#:[id number] metroNIDAZOLE-NS PMX 500 100 mg In Saline 1 100ml.bag @ 100 mls/hr IVPB Q8HR [facility] Rx#:[id number] Intake, IV Titration 361.626 Amount Amiodarone 450 mg In 242.227 Dextrose 5% in Water 250 ml @ 0.5 MG/MIN 16.667 mls/hr IV .Q15H [facility] Rx#: [id number] propofoL 1,000 mg In 119.399 Empty Bag 1 bag @ 20 MCG/ KG/MIN 10.668 mls/hr IV . Q9H23M [facility] Rx#:[id number] Output: Gastric Drainage 150 Urine 395 385 60 Other: Voiding Method Indwelling Catheter Indwelling Catheter Indwelling Catheter ABP, PAP, CO, CI - Last Documented Arterial Blood Pressure 111/51 - Exam Abdomen: Soft, mild distention, mild tenderness, incision clean and dry - Labs CBC & Chem 7: 05/13/21 04:30 05/13/21 04:30 Labs: Abnormal Lab Results - Last 24 Hours (Table) 05/12/21 05/12/21 05/13/21 Range/Units 11:51 12:06 04:30 WBC 11.6 H (3.8-10.6) k/uL RBC 3.98 L (4.30-5.90) m/uL Hgb 12.8 L (13.0-17.5) gm/dL Plt Count 111 L (150-450) k/uL Neutrophils # 10.5 H (1.3-7.7) k/uL Lymphocytes # 0.4 L (1.0-4.8) k/uL APTT 33.2 H (22.0-30.0) sec ABG pCO2 32 L (35-45) mmHg ABG pO2 126 H (83-108) mmHg ABG HCO3 18 L (21-25) mmol/L ABG O2 Saturation 98.3 H (94-97) % Sodium (137-145) mmol/L Chloride (98-107) mmol/L Carbon Dioxide (22-30) mmol/L BUN (9-20) mg/dL Glucose (74-99) mg/dL Calcium (8.4-10.2) mg/dL Magnesium (1.6-2.3) mg/dL 05/13/21 Range/Units 04:30 WBC (3.8-10.6) k/uL RBC (4.30-5.90) m/uL Hgb (13.0-17.5) gm/dL Plt Count (150-450) k/uL Neutrophils # (1.3-7.7) k/uL Lymphocytes # (1.0-4.8) k/uL APTT (22.0-30.0) sec ABG pCO2 (35-45) mmHg ABG pO2 (83-108) mmHg ABG HCO3 (21-25) mmol/L ABG O2 Saturation (94-97) % Sodium 135 L (137-145) mmol/L Chloride 111 H (98-107) mmol/L Carbon Dioxide 21 L (22-30) mmol/L BUN 27 H (9-20) mg/dL Glucose 112 H (74-99) mg/dL Calcium 7.0 L (8.4-10.2) mg/dL Magnesium 2.4 H (1.6-2.3) mg/dL Microbiology - Last 24 Hours (Table) 05/10/21 16:26 Blood Culture - Preliminary Blood No Growth after 48 hours 05/10/21 18:44 Urine Culture - Final Urine,Voided Assessment and Plan (1) Small bowel obstruction Narrative/Plan: Patient seems to be progressing well. Keep nothing by mouth with nasogastric tube in place. May have ice chips. Continue antibiotics. Current Visit: Yes Status: Acute Code(s): K56.69 - OTHER INTESTINAL OBSTRUCTION * DO NOT USE * SNOMED Code(s): 254166127
--- NOTE | 2021-05-13 15:38 | PN ---
PROGRESS NOTE 80-year-old gentleman with history of sick sinus syndrome, status post permanent pacemaker and atrial fibrillation, is admitted to hospital with small bowel obstruction and underwent surgery for the same. He had atrial fibrillation with poorly controlled ventricular rate and we started him on IV amiodarone. His Eliquis is currently on hold. This morning, he is extubated, sitting up talking. Hopefully, the NG tube will be off. Remains in atrial fibrillation with controlled ventricular rate, stable hemodynamically. Chest exam reveals good air entry bilaterally. Heart exam reveals first and second heart sounds irregular rhythm. Exam of the extremities did not reveal any edema. Peripheral pulses are felt. ASSESSMENT: Atrial fibrillation with controlled ventricular rate. PLAN: I will continue the amiodarone and we will resume the anticoagulant when okay with the surgeon. LISETTE / MARCIAL: [id number] /
--- NOTE | 2021-05-13 19:45 | PN ---
PROGRESS NOTE DATE OF SERVICE: 05/13/2021 This 80-year-old gentleman who was admitted with bowel obstruction and had a laparotomy, had a small-bowel resection, also. The patient is also respiratory failure after surgery. The patient is extubated. The patient is being closely monitored. The most recent chest x-ray which was reviewed personally by me showed some atelectasis. PAST MEDICAL HISTORY: Reviewed. REVIEW OF SYSTEMS: Could not be taken, the patient is confused. CURRENT MEDICATIONS: Reviewed include amiodarone, heparin, Dilaudid. Doses and other medications reviewed. PHYSICAL EXAMINATION: Pulse is 85, blood pressure 112/70, respiration 18. Oral mucosa moist. NECK: No jugular venous distention. No lymph node enlargement. CARDIOVASCULAR: S1, S2, muffled. No S3, no S4, RESPIRATORY: Diminished breath sounds at the bases. A few scattered rhonchi and crackles. ABDOMEN: Soft, status post surgery. LEGS: No edema, no swelling. NERVOUS SYSTEM: Confused. LAB STUDIES: WBC 11.2, hemoglobin 12.8, sodium is 135. ASSESSMENT: 1. High-grade small bowel obstruction status post exploratory laparotomy and removal of intraperitoneal mesh and extensive lysis of adhesions. 2. Atrial fibrillation with fast ventricular rate. 3. Hematuria. 4. Paroxysmal atrial fibrillation. 5. Valvular heart disease. 6. Hyperlipidemia. 7. Hypothyroidism. RECOMMENDATION: Recommend to continue current medications, continue symptomatic treatment. Incentive spirometry. DVT prophylaxis. Resume the home medications. Closely follow with multiple consultants. Prognosis guarded. Further recommendations to follow. MMODL / IJN: [id number] /
[2021-05-14] MEDS: HYDROmorphone 0.5 MG/0.5 ML SYRINGE IVP PRN ×7 (00:48→22:23)
[2021-05-14] MEDS: AMIODARONE 450 MG in DEXTROSE 5% IN WATER 250 ML IV SCH ×8 (03:00→20:43)
[2021-05-14 04:26] LABS: African American GFR (CKD) >90 (>60 ml/min/1.73 sqM); Anion Gap 3 mmol/L; Blood Urea Nitrogen 24 mg/dL (9-20); Calcium 7.4 mg/dL (8.4-10.2); Carbon Dioxide 19 mmol/L (22-30); Chloride 115 mmol/L (98-107); Glucose 78 mg/dL (74-99); Magnesium 2.4 mg/dL (1.6-2.3); Non-African American GFR(CKD) 82 (>60 ml/min/1.73 sqM); Potassium 4.1 mmol/L (3.5-5.1); Sodium 137 mmol/L (137-145)
[2021-05-14] MEDS: SODIUM CHLORIDE 0.9% 1,000 ML IV SCH ×2 (05:47→18:12)
[2021-05-14] MEDS: metroNIDAZOLE-NS PMX 500 MG in SALINE 1 100ML.BAG IVPB SCH ×3 (08:57→23:13)
[2021-05-14] MEDS: HEPARIN SODIUM,PORCINE/PF 5,000 UNIT/0.5 ML SYRINGE SQ SCH ×2 (08:57→20:39)
[2021-05-14] MEDS: PANTOPRAZOLE 40 MG/10 ML VIAL IV SCH (08:57)
[2021-05-14] MEDS: LEVOTHYROXINE IVP 100 MCG/5 ML VIAL IV SCH (09:08)
--- NOTE | 2021-05-14 11:50 | P.PN ---
Subjective Progress Note Date: 05/14/21 Principal diagnosis: Small bowel obstruction Patient was transferred out of the unit yesterday. Doing fairly well. Mild discomfort. No bowel function. Nasogastric tube remains in place. Objective - Vital Signs Vital signs: Vital Signs Temp 98.1 F 05/14/21 08:00 Pulse 111 H 05/14/21 08:00 Resp 18 05/14/21 08:00 BP 128/75 05/14/21 08:00 Pulse Ox 92 L 05/14/21 08:00 Intake & Output 05/13/21 05/14/21 05/14/21 17:59 06:59 18:59 Intake Total Output Total 300 Balance -300 Intake: IV Pressure Bag Sodium Chloride 0.9% 1, 000 ml @ 75 mls/hr IV . [id number] [facility] Rx#:[id number] Intake, IV Titration Amount Amiodarone 450 mg In Dextrose 5% in Water 250 ml @ 0.5 MG/MIN 16.667 mls/hr IV .Q15H [facility] Rx#: [id number] Output: Gastric Drainage Urine 300 Other: Voiding Method Indwelling Catheter ABP, PAP, CO, CI - Last Documented Arterial Blood Pressure 111/51 - Exam Abdomen: Soft, distended, incision clean and dry, mild tenderness - Labs CBC & Chem 7: 05/13/21 04:30 05/14/21 03:32 Labs: Abnormal Lab Results - Last 24 Hours (Table) 05/14/21 Range/Units 03:32 Chloride 115 H (98-107) mmol/L Carbon Dioxide 19 L (22-30) mmol/L BUN 24 H (9-20) mg/dL Calcium 7.4 L (8.4-10.2) mg/dL Magnesium 2.4 H (1.6-2.3) mg/dL Microbiology - Last 24 Hours (Table) 05/10/21 16:26 Blood Culture - Preliminary Blood No Growth after 72 hours Assessment and Plan (1) Small bowel obstruction Narrative/Plan: Patient doing well in the stepdown unit. Keep nothing by mouth with nasogastric tube to suction for now. Recheck labs tomorrow. Gradually increase activity as tolerated. Current Visit: Yes Status: Acute Code(s): K56.69 - OTHER INTESTINAL OBSTRUCTION * DO NOT USE * SNOMED Code(s): 595735899
--- NOTE | 2021-05-14 12:28 | P.PN ---
Subjective Progress Note Date: 05/14/21 This is a pleasant 80-year-old male past medical history significant for atrial fibrillation on Eliquis, sick sinus syndrome status post permanent pacemaker, chronic kidney disease, COPD, history of intestinal obstruction with bowel resection, chronic paralysis of hemidiaphragm. He follows in the office with Dr Triplett. We have been asked to see in consultation for atrial fibrillation. Patient presented to the ER with complaints of abdominal pain and vomiting patient's CT of thte abdomen was highly suggestive high-grade small bowel obstruction. Patient underwent an exploratory laparotomy with removal of intraperitoneal mesh, lysis of extensive adhesions, and small bowel resection yesterday. Postoperative period patient went into A. fib with RVR, and he remains on IV amiodarone. Patient examined today resting comfortably in bed. No complaints of chest pain palpitations or dyspnea. Eliquis remains on hold until cleared by surgery. Will switch to oral amiodarone once cleared by surgery for oral intake and NG tube is removed. Objective - Vital Signs Vital signs: Vital Signs Temp 98.1 F 05/14/21 08:00 Pulse 111 H 05/14/21 08:00 Resp 18 05/14/21 08:00 BP 128/75 05/14/21 08:00 Pulse Ox 92 L 05/14/21 08:00 Intake & Output 05/13/21 05/14/21 05/14/21 17:59 06:59 18:59 Intake Total Output Total 300 Balance -300 Intake: IV Pressure Bag Sodium Chloride 0.9% 1, 000 ml @ 75 mls/hr IV . [id number] [facility] Rx#:[id number] Intake, IV Titration Amount Amiodarone 450 mg In Dextrose 5% in Water 250 ml @ 0.5 MG/MIN 16.667 mls/hr IV .Q15H [facility] Rx#: [id number] Output: Gastric Drainage Urine 300 Other: Voiding Method Indwelling Catheter ABP, PAP, CO, CI - Last Documented Arterial Blood Pressure 111/51 - Exam PHYSICAL EXAM: VITAL SIGNS: Reviewed. GENERAL: Well-developed in no acute distress. HEENT: Head is normocephalic. Pupils are equal, round. Sclerae anicteric. Mucous membranes of the mouth are moist. NG tube in place NECK: Supple. No JVD or thyromegaly RESPIRATORY: Respirations even and unlabored. Lungs diminished to auscultation bilaterally. CARDIO: Regular rate and rhythm. S1 and S2 heard. No murmur or gallops. EXTREMITIES: Normal range of motion. No clubbing or cyanosis. Peripheral pulses intact. Negative for bilateral lower extremity edema NEURO: Orientated to person, time, mood is appropriate - Labs CBC & Chem 7: 05/13/21 04:30 05/14/21 03:32 Labs: Abnormal Lab Results - Last 24 Hours (Table) 05/14/21 Range/Units 03:32 Chloride 115 H (98-107) mmol/L Carbon Dioxide 19 L (22-30) mmol/L BUN 24 H (9-20) mg/dL Calcium 7.4 L (8.4-10.2) mg/dL Magnesium 2.4 H (1.6-2.3) mg/dL Microbiology - Last 24 Hours (Table) 05/10/21 16:26 Blood Culture - Preliminary Blood No Growth after 72 hours Assessment and Plan Assessment: High-grade small bowel obstruction, status post exploratory laparotomy on 05/11/2021, with extensive lysis of adhesions, intraperitoneal mesh removal, and small bowel resection Persistent atrial fibrillation with RVR on amiodarone drip Hyperlipidemia previous history of bowel resection Plan: Continue with IV amiodarone until patient is cleared by surgery for oral medication Continue to hold Eliquis until cleared by surgery Continue with cardiac telemetry monitoring Continue with all other current cardiac medications Further recommendations based on clinical course The above impression and plan of care have been discussed and directed by the signing physician. Argelia Roblero, nurse practitioner, acting as scribe for signing physician.
--- NOTE | 2021-05-14 12:32 | P.PN ---
Subjective Progress Note Date: 05/14/21 Principal diagnosis: Bowel obstruction. 80-year-old white male patient with past medical history of smoking, stage II COPD, baseline FEV1 80% of predicted, obstructive sleep apnea on APAP therapy, benign prostatic hyperplasia, previous history of intestinal obstruction with bowel resection surgery, history of a permanent pacemaker insertion, chronic kidney disease, chronic paralysis of hemidiaphragm, atrial fibrillation on Eliquis, BPH, chronic back pain, former smoker. Patient came in on 05/10/2021 with complaints of abdominal pain and vomiting. CT of the abdomen and pelvis in the ER showing marked dilation of the proximal small bowel loops and stomach highly suggestive of high-grade small bowel obstruction, 8mm posterior bladder calculus, cardiomegaly with small pericardial effusion and basilar atelectasis, prostate hypertrophy. White blood cell count is 22.1, hemoglobin is 19.8, platelet count was 205, sodium is 131, potassium is 5.1, chloride 97, CO2 is 24, BUN is 58, creatinine is 1.34, LFTs are within normal limits, amylase was 106, lipase was 107, urinalysis was negative for signs of infection. Surgical services have been consulted, NG tube has been inserted, patient remains nothing by mouth, he is scheduled for exploratory laparotomy on 05/11/[address] Collado, patient is getting IV hydration, alk phos is on hold. Denies any difficulty breathing, chest x-ray showing chronic changes without evidence for acute pulmonary disease. On 05/12/2021 patient seen in follow-up in the intensive care unit, yesterday patient had exploratory laparotomy with removal of intraperitoneal mesh, lysis of extensive adhesions, and small bowel resection. Patient returned to the intensive care unit intubated and sedated. Currently remains on assist-control ventilation with a rate of 16, tidal volume 500, FiO2 of 50% and PEEP of 5. This morning's blood gas shows pO2 of 127, pCO2 of 32, and pH of 7.36 this was on 50% FiO2. Chest x-ray shows ET tube 5.5 cm above the rona, NG tube in appropriate position, with the tip below the diaphragm, and right central venous line with the tip within the right atrium. Persistent elevation of the right hemidiaphragm, small bilateral pleural effusions. Patient is currently on 0.9 normal saline at a rate of 75 ML per hour, amiodarone at 0.5 g/m, vasopressin is at 0.03 units per minute, and improving his at 3 mics per kilo per minute. Yesterday in the postoperative period patient went into A. fib with RVR, patient does have history of chronic A. fib, however she was loaded with amiodarone and started on amiodarone drip per protocol, currently heart rate is better controlled. Received 2 L in IV fluid boluses, and maintenance IV fluids infusing at 75 ML per hour, abiotic's in the form of Flagyl. Today's labs have been reviewed, white blood cell count is 7.4, hemoglobin is 14.9, platelet count is 136, sodium is 134, potassium is 4.3, chloride is 112, CO2 17, BUN is 33, creatinine is 1.01. Surgical incisions are clean dry and intact, abdomen is soft but tender to touch. NG tube remains in place, patient is nothing by mouth, no tube feedings or TPN yet. Will await further recommendations from surgery in regards to the timing of nutrition initiation. Progress note dated 05/13/2021. 80-year-old male, postop day #2, status post laparotomy, with removal of intraperitoneal mesh, lysis of extensive adhesions, and small bowel resection. The patient was extubated on May 12. Currently, resting comfortably in the intensive care unit, room 263. He's on 2 L nasal cannula. NG tube still in place. The patient's on saline at 75 mL an hour. He is getting amiodarone at 0.5 mg/m. The patient is chronically in atrial fibrillation. White count 11.6, hemoglobin 12.8, hematocrit 39.1, platelet count 111,000. Sodium 135, potassium 4.1, chlorides 111, CO2 21, anion gap 3, BUN 27, and creatinine 1.05. Microbiologic studies are all negative. Chest x-ray shows small bilateral effusions, and some retrocardiac infiltrate or atelectasis. Progress note dated 05/14/2021. 80-year-old male, postop day #3, status post laparotomy with removal of intraperitoneal mesh, lysis of extensive adhesions, and small bowel resection. The patient was extubated on May 12. He was moved out of the intensive care unit. He is resting comfortably. He's on room air. NG tube is still in place. He has no new complaints today. Laboratory data includes a white count 11.6, he will 12.8, hematocrit 39.1, platelet count 111,000. Sodium 137, potassium 4.1, chlorides 115, CO2 19, anion gap 3, BUN 24, and creatinine 0.89. Blood and urine sampling is negative thus far. Chest x-ray from yesterday show some retrocardiac infiltrates or atelectasis. Objective - Vital Signs Vital signs: Vital Signs Temp 98.1 F 05/14/21 08:00 Pulse 111 H 05/14/21 08:00 Resp 18 05/14/21 08:00 BP 128/75 05/14/21 08:00 Pulse Ox 92 L 05/14/21 08:00 Intake & Output 05/13/21 05/14/21 05/14/21 17:59 06:59 18:59 Intake Total Output Total 300 Balance -300 Intake: IV Pressure Bag Sodium Chloride 0.9% 1, 000 ml @ 75 mls/hr IV . [id number] [facility] Rx#:[id number] Intake, IV Titration Amount Amiodarone 450 mg In Dextrose 5% in Water 250 ml @ 0.5 MG/MIN 16.667 mls/hr IV .Q15H [facility] Rx#: [id number] Output: Gastric Drainage Urine 300 Other: Voiding Method Indwelling Catheter ABP, PAP, CO, CI - Last Documented Arterial Blood Pressure 111/51 - Exam No acute distress, oriented 3. Currently on room air. Saturations are 92-94%. HEENT examination is grossly unremarkable. NG tube in place. Neck supple. Full range of motion. No adenopathy thyromegaly or neck vein distention. Cardiovascular examination reveals an irregular rhythm and rate. S1-S2 normal. No S3 or S4. No discernible murmur noted. Heart rate 91 bpm. Lungs reveal mostly clear breath sounds. Mild scattered rhonchi. No wheezes or crackles. Breath sounds equal bilaterally. Abdomen soft, without bowel sounds. Minimal tenderness. Extremities are intact. No cyanosis clubbing or edema. Skin is without rash or lesion. Neurologic examination is brief but nonfocal. - Labs CBC & Chem 7: 05/13/21 04:30 05/14/21 03:32 Labs: Abnormal Lab Results - Last 24 Hours (Table) 05/14/21 Range/Units 03:32 Chloride 115 H (98-107) mmol/L Carbon Dioxide 19 L (22-30) mmol/L BUN 24 H (9-20) mg/dL Calcium 7.4 L (8.4-10.2) mg/dL Magnesium 2.4 H (1.6-2.3) mg/dL Microbiology - Last 24 Hours (Table) 05/10/21 16:26 Blood Culture - Preliminary Blood No Growth after 72 hours Assessment and Plan Assessment: Postop day #3, status post exploratory laparotomy, lysis of adhesions, removal of intraperitoneal mesh, and small bowel resection, for high-grade small bowel obstruction. Routine postoperative ventilator management, with extubation on 05/12/2021. Chronic atrial fibrillation. Prior history of bowel resection. History of sick sinus syndrome, status post pacemaker implantation. Hyperlipidemia. Hypothyroidism. Valvular heart disease. Mild COPD with an FEV1 of 80% of predicted. Plan: Plan dated 05/13/2021. The patient was extubated yesterday, May 12. Currently, he's postop day #2. He's on 2 L nasal cannula. This can probably be weaned off. NG tube remains in place. He is getting saline at 75 mL an hour. He's also on amiodarone 0.5 mg/m. He remains in atrial fibrillation but his rate is controlled. We'll continue with incentive spirometer, and recommendation to deep breathe, cough, and clear secretions. Continue GI and DVT prophylaxis. Continue bronchodilators. We will continue pain control. Prognosis is guarded. Plan dated 05/14/2021. The patient continues to do well. His been weaned off of oxygen. NG tube still in place. He remains on amiodarone 0.5 mg/m. He is in atrial fibrillation with controlled rate. We encourage deep breathing, coughing, clearing secretions. He continues with hourly use of the incentive spirometer. He continues with GI DVT prophylaxis. Labs and x-rays and medications are all reviewed. Prognosis is guarded. We will continue to follow make recommendations where appropriate. Time with Patient: Less than 30
--- NOTE | 2021-05-14 18:23 | PN ---
PROGRESS NOTE DATE OF SERVICE: 05/14/2021 This 80-year-old gentleman who was admitted with high-grade bowel obstruction had exploratory laparotomy. Patient was extubated. The patient is mildly confused. The patient NG tube in situ. Most recent chest x-ray reviewed. White count is still elevated. Patient on broad spectrum IV antibiotics. Past medical history reviewed. REVIEW OF SYSTEMS: Cardiovascular: No angina. Respiration: As mentioned earlier. GI mentioned earlier. : No dysuria. Nervous system: No focal deficits. CURRENT MEDICATIONS: Reviewed include albuterol, amiodarone, doses and other medications reviewed. PHYSICAL EXAMINATION: Pulse is 102 blood pressure 130/76, respirations 16. HEENT: Conjunctivae normal. Cardiovascular: S1, S2 muffled. Respiratory: Breath sounds diminished in the bases. A few scattered rhonchi. Abdomen: Soft. Status post recent surgery. Mild diffuse distention present. Bowel sounds diminished. Nervous system: No focal deficits. LAB STUDIES: WBC 7.6. Other labs are noted. ASSESSMENT: 1. High-grade small bowel obstruction status post exploratory laparotomy, removal of intraperitoneal mesh and extensive lysis of adhesions. 2. Atrial fibrillation with fast ventricular rate. 3. Hematuria. 4. Paroxysmal atrial fibrillation. 5. Valvular heart disease. 6. Hyperlipidemia. 7. Hypothyroidism. RECOMMENDATIONS AND DISCUSSION: Recommend to continue current medications, management and symptomatic treatment. Continue the antibiotics. Continue the rest of medications. NG management per surgery. Overall prognosis guarded because of multiple complex medical issues. Discussed with the at the bedside and further recommendations to follow. MMODL / IJN: [id number] /
[2021-05-15] MEDS: HYDROmorphone 0.5 MG/0.5 ML SYRINGE IVP PRN ×5 (03:08→23:11)
[2021-05-15] MEDS: SODIUM CHLORIDE 0.9% 1,000 ML IV SCH ×2 (06:21→23:11)
[2021-05-15 07:24] LABS: Basophils % (A) 0 %; Eosinophils # (A) 0.1 k/uL (0-0.7); Eosinophils % (A) 1 %; HCT 37.1 % (39.0-53.0); Lymphocytes # (A) 0.7 k/uL (1.0-4.8); Lymphocytes % (A) 6 %; MCH 32.4 pg (25.0-35.0); MCHC 32.3 g/dL (31.0-37.0); MCV 100.1 fL (80.0-100.0); Macrocytosis Slight; Mean Platelet Volume 8.1; Monocytes # (A) 0.5 k/uL (0-1.0); Monocytes % (A) 5 %; Neutrophils # (A) 9.3 k/uL (1.3-7.7); Neutrophils % (A) 88 %; Platelet Count 145 k/uL (150-450); WBC 10.5 k/uL (3.8-10.6)
[2021-05-15 07:53] LABS: African American GFR (CKD) >90 (>60 ml/min/1.73 sqM); Anion Gap 6 mmol/L; Blood Urea Nitrogen 21 mg/dL (9-20); Calcium 7.3 mg/dL (8.4-10.2); Carbon Dioxide 20 mmol/L (22-30); Chloride 115 mmol/L (98-107); Glucose 63 mg/dL (74-99); Non-African American GFR(CKD) 82 (>60 ml/min/1.73 sqM); Sodium 141 mmol/L (137-145)
--- NOTE | 2021-05-15 08:52 | P.PN ---
Subjective Progress Note Date: 05/15/21 Principal diagnosis: Atrial fibrillation with RVR The patient is a pleasant 80-year-old gentleman with history of permanent atrial fibrillation who was admitted to the hospital with abdominal discomfort and underwent exploratory laparotomy. The patient was seen this morning. He remains in atrial fibrillation was controlled heart rate on the current dose of amiodarone IV. He on any oral anticoagulation in the light of the recent surgery till we have the ok from the surgeon. We will continue also on amiodarone IV. He remains hemodynamically stable in terms of heart rate. The pressure also remains stable. Objective - Vital Signs Vital signs: Vital Signs Temp 98.5 F 05/15/21 03:32 Pulse 106 H 05/15/21 03:32 Resp 18 05/15/21 03:32 BP 142/79 05/15/21 03:32 Pulse Ox 92 L 05/15/21 03:32 Intake & Output 05/14/21 05/15/21 05/15/21 18:59 06:59 18:59 Intake Total 250 36.945 Output Total 600 850 Balance -350 -813.055 Intake: Intake, IV Titration 250 36.945 Amount Amiodarone 450 mg In 250 36.945 Dextrose 5% in Water 250 ml @ 0.5 MG/MIN 16.667 mls/hr IV .Q15H COUNT INCLUDES THE [facility] Rx#: [id number] Output: Gastric Drainage 150 Urine 600 700 Other: Voiding Method Indwelling Catheter Indwelling Catheter ABP, PAP, CO, CI - Last Documented Arterial Blood Pressure 111/51 - Constitutional General appearance: Present: no acute distress - Respiratory Respiratory: bilateral: diminished - Cardiovascular Rhythm: irregularly irregular - Labs CBC & Chem 7: 05/15/21 05:55 05/15/21 05:55 Labs: Abnormal Lab Results - Last 24 Hours (Table) 05/15/21 05/15/21 Range/Units 05:55 05:55 RBC 3.70 L (4.30-5.90) m/uL Hgb 12.0 L (13.0-17.5) gm/dL Hct 37.1 L (39.0-53.0) % MCV 100.1 H (80.0-100.0) fL Plt Count 145 L (150-450) k/uL Neutrophils # 9.3 H (1.3-7.7) k/uL Lymphocytes # 0.7 L (1.0-4.8) k/uL Chloride 115 H (98-107) mmol/L Carbon Dioxide 20 L (22-30) mmol/L BUN 21 H (9-20) mg/dL Glucose 63 L (74-99) mg/dL Calcium 7.3 L (8.4-10.2) mg/dL Microbiology - Last 24 Hours (Table) 05/10/21 16:26 Blood Culture - Preliminary Blood No Growth after 96 hours Assessment and Plan Assessment: Assessment #1 status post abdominal surgery #2 permanent atrial fibrillation was controlled heart rate Plan #1 continue the current dose of amiodarone IV #2 switch the patient to oral medication once he is stable from the GI standpoint overview #3 restart oral anticoagulation once he is stable also from the surgical standpoint of view
[2021-05-15] MEDS: metroNIDAZOLE-NS PMX 500 MG in SALINE 1 100ML.BAG IVPB SCH ×3 (08:59→23:11)
[2021-05-15] MEDS: PANTOPRAZOLE 40 MG/10 ML VIAL IV SCH (08:59)
[2021-05-15] MEDS: HEPARIN SODIUM,PORCINE/PF 5,000 UNIT/0.5 ML SYRINGE SQ SCH (08:59)
[2021-05-15] MEDS: LEVOTHYROXINE IVP 100 MCG/5 ML VIAL IV SCH (09:02)
--- NOTE | 2021-05-15 11:26 | P.PN ---
<Filomena Aguilar - Last Filed: 05/15/21 11:16> Subjective Progress Note Date: 05/15/21 CHIEF COMPLAINT: Small bowel obstruction HISTORY OF PRESENT ILLNESS: Patient is postop day #4 status post exploratory laparotomy, removal of intraperitoneal mesh, lysis of extensive adhesions and small bowel resection for small bowel obstruction, extensive adhesions, intraperitoneal mesh. Patient is currently on third floor. He is having flatus. He denies any bowel movements. Denies any nausea. He is followed by cardiology regarding his atrial fibrillation. He had only 150 out and his NG tube through the night. White count has normalized at 10.5 hemoglobin is 12. He is afebrile. He did have some mild tachycardia heart rate 110 and elevated respiratory rate 30. Patient was not receiving IV fluids through the night. IV fluids restarted this morning. PHYSICAL EXAM: VITAL SIGNS: Reviewed. GENERAL: Intubated. HEENT: Moist buccal mucosa. Head is atraumatic, normocephalic. ABDOMEN: Soft. Distended. Incision site with dried blood noted on the dressing ASSESSMENT: 1. Status post exploratory laparotomy, removal of intraperitoneal mesh, lysis of extensive adhesions and small bowel resection for small bowel obstruction, extensive adhesions and intraperitoneal mesh 2. A. fib with RVR during surgery PLAN: -Discontinue NG tube -Start clear liquid diet -Continue IV fluids -Continue pain medication as needed -DVT prophylaxis subcu heparin -Continue GI prophylaxis Physician Parts Consultant note has been reviewed by physician. Signing provider agrees with the documented findings, assessment, and plan of care. Objective - Vital Signs Vital signs: Vital Signs Temp 98.3 F 05/15/21 08:00 Pulse 110 H 05/15/21 08:00 Resp 30 H 05/15/21 08:00 BP 141/78 05/15/21 08:00 Pulse Ox 94 L 05/15/21 08:00 Intake & Output 05/14/21 05/15/21 05/15/21 18:59 06:59 18:59 Intake Total 250 36.945 Output Total 600 850 Balance -350 -813.055 Intake: Intake, IV Titration 250 36.945 Amount Amiodarone 450 mg In 250 36.945 Dextrose 5% in Water 250 ml @ 0.5 MG/MIN 16.667 mls/hr IV .Q15H [facility] Rx#: [id number] Output: Gastric Drainage 150 Urine 600 700 Other: Voiding Method Indwelling Catheter Indwelling Catheter ABP, PAP, CO, CI - Last Documented Arterial Blood Pressure 111/51 - Labs CBC & Chem 7: 05/15/21 05:55 05/15/21 05:55 Labs: Abnormal Lab Results - Last 24 Hours (Table) 05/15/21 05/15/21 Range/Units 05:55 05:55 RBC 3.70 L (4.30-5.90) m/uL Hgb 12.0 L (13.0-17.5) gm/dL Hct 37.1 L (39.0-53.0) % MCV 100.1 H (80.0-100.0) fL Plt Count 145 L (150-450) k/uL Neutrophils # 9.3 H (1.3-7.7) k/uL Lymphocytes # 0.7 L (1.0-4.8) k/uL Chloride 115 H (98-107) mmol/L Carbon Dioxide 20 L (22-30) mmol/L BUN 21 H (9-20) mg/dL Glucose 63 L (74-99) mg/dL Calcium 7.3 L (8.4-10.2) mg/dL Microbiology - Last 24 Hours (Table) 05/10/21 16:26 Blood Culture - Preliminary Blood No Growth after 96 hours <Wang De La Rosa - Last Filed: 05/15/21 19:27> Subjective I have personally seen and examined the patient, reviewed the DIPLOMATIC INTERPRETER /PAs history, exam and MDM and agree with the assessment and plan as written. Based on total visit time, I have performed more than 50% of the visit. As above: Patient having mild bloating. He says he feels about the same as yesterday. He does state he has had a lot of flatus today however. Patient was started on clear liquid diet. Told the patient to hold off on liquids for the rest of the evening. Abdominal exam shows mild tenderness and mild distention, incision with no active drainage currently. Objective - Vital Signs Vital signs: Vital Signs Temp 97.8 F 05/15/21 15:28 Pulse 89 05/15/21 15:28 Resp 18 05/15/21 15:28 BP 128/88 05/15/21 15:28 Pulse Ox 94 L 05/15/21 15:28 Intake & Output 05/15/21 05/15/21 05/16/21 06:59 18:59 06:59 Intake Total 36.945 1382 Output Total 850 Balance -413.341 4275 Weight 97.8 kg Intake: IV 700 Sodium Chloride 0.9% 1, 600 000 ml @ 75 mls/hr IV . [id number] [facility] Rx#:[id number] metroNIDAZOLE-NS PMX 500 100 mg In Saline 1 100ml.bag @ 100 mls/hr IVPB Q8HR [facility] Rx#:[id number] Intake, IV Titration 36.945 80 Amount Amiodarone 450 mg In 36.945 Dextrose 5% in Water 250 ml @ 0.5 MG/MIN 16.667 mls/hr IV .Q15H [facility] Rx#: [id number] Amiodarone 450 mg In 80 Dextrose 5% in Water 250 ml @ 0.5 MG/MIN 16.667 mls/hr IV .Q15H [facility] Rx#: [id number] Oral 602 Output: Gastric Drainage 150 Urine 700 Other: Voiding Method Indwelling Catheter Indwelling Catheter ABP, PAP, CO, CI - Last Documented Arterial Blood Pressure 111/51 - Labs CBC & Chem 7: 05/15/21 05:55 05/15/21 05:55 Labs: Abnormal Lab Results - Last 24 Hours (Table) 05/15/21 05/15/21 Range/Units 05:55 05:55 RBC 3.70 L (4.30-5.90) m/uL Hgb 12.0 L (13.0-17.5) gm/dL Hct 37.1 L (39.0-53.0) % MCV 100.1 H (80.0-100.0) fL Plt Count 145 L (150-450) k/uL Neutrophils # 9.3 H (1.3-7.7) k/uL Lymphocytes # 0.7 L (1.0-4.8) k/uL Chloride 115 H (98-107) mmol/L Carbon Dioxide 20 L (22-30) mmol/L BUN 21 H (9-20) mg/dL Glucose 63 L (74-99) mg/dL Calcium 7.3 L (8.4-10.2) mg/dL Microbiology - Last 24 Hours (Table) 05/10/21 16:26 Blood Culture - Preliminary Blood No Growth after 120 hours Assessment and Plan (1) Small bowel obstruction Current Visit: Yes Status: Acute Code(s): K56.69 - OTHER INTESTINAL OBSTRUCTION * DO NOT USE * SNOMED Code(s): 168960539
--- NOTE | 2021-05-15 12:39 | P.PN ---
Subjective Progress Note Date: 05/15/21 Urine is clear this morning, denies any dysuria, or suprapubic pressure Objective - Vital Signs Vital signs: Vital Signs Temp 98.6 F 05/15/21 12:00 Pulse 101 H 05/15/21 12:00 Resp 18 05/15/21 12:00 BP 134/85 05/15/21 12:00 Pulse Ox 95 05/15/21 12:00 Intake & Output 05/14/21 05/15/21 05/15/21 18:59 06:59 18:59 Intake Total 250 36.945 Output Total 600 850 Balance -350 -813.055 Intake: Intake, IV Titration 250 36.945 Amount Amiodarone 450 mg In 250 36.945 Dextrose 5% in Water 250 ml @ 0.5 MG/MIN 16.667 mls/hr IV .Q15H [facility] Rx#: [id number] Output: Gastric Drainage 150 Urine 600 700 Other: Voiding Method Indwelling Catheter Indwelling Catheter ABP, PAP, CO, CI - Last Documented Arterial Blood Pressure 111/51 - Constitutional General appearance: Present: no acute distress - Gastrointestinal General gastrointestinal: Present: soft. Absent: distended - Psychiatric Psychiatric: Present: A&O x's 3 - Labs CBC & Chem 7: 05/15/21 05:55 05/15/21 05:55 Labs: Abnormal Lab Results - Last 24 Hours (Table) 05/15/21 05/15/21 Range/Units 05:55 05:55 RBC 3.70 L (4.30-5.90) m/uL Hgb 12.0 L (13.0-17.5) gm/dL Hct 37.1 L (39.0-53.0) % MCV 100.1 H (80.0-100.0) fL Plt Count 145 L (150-450) k/uL Neutrophils # 9.3 H (1.3-7.7) k/uL Lymphocytes # 0.7 L (1.0-4.8) k/uL Chloride 115 H (98-107) mmol/L Carbon Dioxide 20 L (22-30) mmol/L BUN 21 H (9-20) mg/dL Glucose 63 L (74-99) mg/dL Calcium 7.3 L (8.4-10.2) mg/dL Microbiology - Last 24 Hours (Table) 05/10/21 16:26 Blood Culture - Preliminary Blood No Growth after 96 hours Assessment and Plan Assessment: 80-year-old male admitted to the hospital with bowel obstruction. Developed gross hematuria on postop day #1 status post exploratory laparoscopy. Had a cystoscopy done for hematuria back stones in [address] is signi ficant for a bladder stone and a significantly enlarged prostate. His hematuria is most likely secondary to trauma from the catheter. Urine clear this morning -Continue Proscar and Flomax -Can resume Elliquis -Narvaez can be removed tomorrow from urology standpoint, if urine remains clear -We'll need outpatient follow-up with Dr. Velarde
[2021-05-15 14:23] VITALS: BMI 29.2
--- NOTE | 2021-05-15 15:00 | P.PN ---
Subjective Progress Note Date: 05/15/21 This is a pleasant 80-year-old male who was recently admitted with abdominal pain and discomfort with constipation and patient also found to be dehydrated and being closely monitored. Patient underwent CT abdomen and pelvis which showed marked dilation of several small bowel loops including the stomach with an abrupt caliber change within the mid abdomen. Centrally to the left with a normal filling distal loops and findings are felt to be highly suspicious for high-grade small bowel obstruction with internal hernia or adhesions not entirely excluded. Appendix appeared normal. Patient to continue with NG tube and nothing by mouth at this time. Cardiology consulted for surgical clearance which is currently pending. Patient denies any chest pain or shortness of breath. Patient is afebrile. Patient also continued on IV Protonix along with Flagyl an appropriate home medications have been resumed. 05/12/2021 Patient is seen and evaluated in follow-up continues to be closely monitored wi th multiple medical consultations following. Patient is status post exploratory laparotomy and underwent removal of intraperitoneal mesh, extensive lysis of adhesions, small bowel resection and is being closely monitored. Patient is in the ICU and is recently intubated and currently being weaned off sedation for possible extubation. Patient was also noted to have A. fib with RVR during surgery and cardiology is following. Patient with indwelling Narvaez catheter and noted hematuria and urology has been consulted. Urine culture finalized showing apparent skin and/or genital andreas. Patient is maintained on IV antibiotics in the form of Flagyl and will continue. On exam patient is awake and following the commands appropriately but somewhat confused per nursing staff. Chest x-ray this morning shows left upper chest wall dual-lead pacemaker with persistent elevation of the right hemidiaphragm and small bilateral pleural effusions unchanged. 05/15/2021 Patient is seen and evaluated in follow-up this morning with at the bedside currently sitting up in the chair. NG tube is being removed and patient is being started on low-sodium clear liquid diet per surgery recommendations. Multiple medical consultations following and patient is status post exploratory laparotomy. Patient continues on IV antibiotics in the form of Flagyl. Patient being transitioned to oral anticoagulant along with oral Lopressor and patient is off IV amiodarone. Incentive spirometer at the bedside and encourage the patient to continue using at least 10 times every hour while awake. Urology has evaluated the patient recommending trial voiding tomorrow and monitoring for any retention and/or further hematuria. PT/OT following. Patient reports to passing gas although no reports bowel movements as of yet. Patient denies chest pain, shortness of breath, or palpitations. Patient is afebrile. White blood count currently normalized at 10.5. All medications have been reviewed Active Medications Albuterol/Ipratropium (Ipratropium-Albuterol 3 Ml Neb) 3 ml INHALATION RT-TID PRN PRN Reason: Shortness Of Breath Or Wheezing Apixaban (Apixaban 5 Mg Tab) 5 mg PO BID [facility]; Protocol Hydromorphone HCl (Hydromorphone 0.5 Mg/0.5 Ml Syringe) 0.5 mg IVP Q3HR PRN PRN Reason: Moderate Pain Last Admin: 05/15/21 08:59 Dose: 0.5 mg Documented by: Sodium Chloride (Saline 0.9%) 1,000 mls @ 75 mls/hr IV .[id number] [facility] Last Admin: 05/15/21 06:21 Dose: Not Given Documented by: Metronidazole 500 mg/ IV (Solution) 100 mls @ 100 mls/hr IVPB Q8HR [facility]; Protocol Last Admin: 05/15/21 08:59 Dose: 100 mls/hr Documented by: Levothyroxine Sodium (Levothyroxine 50 Mcg Tab) 50 mcg PO DAILY@0630 [facility] Metoprolol Tartrate (Metoprolol Tartrate 25 Mg Tab) 25 mg PO BID [facility] Pantoprazole Sodium (Pantoprazole 40 Mg Tablet) 40 mg PO AC-BRKFST [facility] PHYSICAL EXAMINATION: GENERAL: The patient is awake, alert and oriented 3, Well developed, well nourished. HEENT: Pupils are round and equally reacting to light. EOMI. does have scleral icterus. No conjunctival pallor. Normocephalic, atraumatic. No pharyngeal erythema. No thyromegaly. NG tube removed today CARDIOVASCULAR: S1 and S2 muffled PULMONARY: diminished breath sounds bilaterally with no wheezing or rhonchi noted. ABDOMEN: soft. Tender. non-distended, hypoactive bowel sounds. No palpable organomegaly. MUSCULOSKELETAL: No joint swelling or deformity. EXTREMITIES: No cyanosis, clubbing, or pedal edema. NEUROLOGICAL: Gross neurological examination did not reveal any focal deficits. SKIN: No rashes. Assessment: High-grade small bowel obstruction Status post exploratory laparotomy with removal of intraperitoneal mesh, lysis of extensive lesions and small bowel resection Atrial fibrillation with RVR during surgery Hematuria status post indwelling Narvaez catheter insertion Dehydration with acute renal failure Elevated white blood count Paroxysmal atrial fibrillation History of sick sinus syndrome with pacemaker implantation Valvular heart disease Hyperlipidemia History of hypothyroidism Chronic obstructive pulmonary disease, not an exacerbation GI prophylaxis DVT prophylaxis Full code Plan: Recommend to continue with current medications and symptomatic management. Patient is currently sitting up in the chair with at the bedside on a medical surgical unit being closely followed by surgery and cardiology. NG tube is being removed and patient is being started slowly on a diet and will resumed on appropriate oral medications. With indwelling Narveaz catheter was evaluated by urology recommending trial voiding tomorrow and monitoring closely for any retention or further hematuria. Incentive spirometer at the bedside and encourage the patient continue using at least 10 times every hour while awake and also increased activity as tolerated. Physical therapy evaluate the pat ient. Eliquis being resumed. Will repeat a.m. labs. Due to multiple complex medical issues, prognosis is guarded. The impression and plan of care has been dictated by Renu Cantu, nurse practitioner as directed. MD Wm I have performed a history and examination and MDM of this patient, discussed the same with the dictator, and agree with the dictator's assessment and plan as written ,documented as a scribe. Based on total visit time, I have performed more than 50% of the visit. Any additional findings or plans will be noted. Objective - Vital Signs Vital signs: Vital Signs Temp 98.5 F 05/15/21 03:32 Pulse 106 H 05/15/21 03:32 Resp 18 05/15/21 03:32 BP 142/79 05/15/21 03:32 Pulse Ox 92 L 05/15/21 03:32 Intake & Output 05/14/21 05/15/21 05/15/21 18:59 06:59 18:59 Intake Total 250 36.945 Output Total 600 850 Balance -350 -813.055 Intake: Intake, IV Titration 250 36.945 Amount Amiodarone 450 mg In 250 36.945 Dextrose 5% in Water 250 ml @ 0.5 MG/MIN 16.667 mls/hr IV .Q15H [facility] Rx#: [id number] Output: Gastric Drainage 150 Urine 600 700 Other: Voiding Method Indwelling Catheter Indwelling Catheter ABP, PAP, CO, CI - Last Documented Arterial Blood Pressure 111/51 - Labs CBC & Chem 7: 05/15/21 05:55 05/15/21 05:55 Labs: Abnormal Lab Results - Last 24 Hours (Table) 05/15/21 05/15/21 Range/Units 05:55 05:55 RBC 3.70 L (4.30-5.90) m/uL Hgb 12.0 L (13.0-17.5) gm/dL Hct 37.1 L (39.0-53.0) % MCV 100.1 H (80.0-100.0) fL Plt Count 145 L (150-450) k/uL Neutrophils # 9.3 H (1.3-7.7) k/uL Lymphocytes # 0.7 L (1.0-4.8) k/uL Chloride 115 H (98-107) mmol/L Carbon Dioxide 20 L (22-30) mmol/L BUN 21 H (9-20) mg/dL Glucose 63 L (74-99) mg/dL Calcium 7.3 L (8.4-10.2) mg/dL Microbiology - Last 24 Hours (Table) 05/10/21 16:26 Blood Culture - Preliminary Blood No Growth after 96 hours
--- NOTE | 2021-05-15 15:21 | P.PN ---
Subjective Progress Note Date: 05/15/21 On 05/15/2021, I'm seeing the patient for a follow-up. The patient is postop day #4. The patient underwent laparotomy, removal of a intraperitoneal mesh and lysis of adhesions and small bowel resection for small bowel obstruction. The patient also has extensive adhesions and intraperitoneal mesh removal. The patient's surgical with that and recommended that although there is some serosanguineous material was weaned from the wound surface. The patient is going to require wound change and dressing change. The patient remains in atrial fibrillation. The patient is doing well. He is using incentive spirometer. He is afebrile. NG tube was removed today by surgery and the patient will be started on clear liquid diet. His pain is under adequate control. The patient remains on subcutaneous heparin for DVT prophylaxis. He is slightly tachycardic and today's evaluation the patient remains in atrial fibrillation. The white cell count of 10.5 with hemoglobin of 12 and a platelet count of 145. BUN is at 21 with a creatinine of 0.9 and sodium level is at 141. Objective - Vital Signs Vital signs: Vital Signs Temp 98.3 F 05/15/21 08:00 Pulse 110 H 05/15/21 08:00 Resp 30 H 05/15/21 08:00 BP 141/78 05/15/21 08:00 Pulse Ox 94 L 05/15/21 08:00 Intake & Output 05/14/21 05/15/21 05/15/21 18:59 06:59 18:59 Intake Total 250 36.945 Output Total 600 850 Balance -350 -813.055 Intake: Intake, IV Titration 250 36.945 Amount Amiodarone 450 mg In 250 36.945 Dextrose 5% in Water 250 ml @ 0.5 MG/MIN 16.667 mls/hr IV .Q15H [facility] Rx#: [id number] Output: Gastric Drainage 150 Urine 600 700 Other: Voiding Method Indwelling Catheter Indwelling Catheter ABP, PAP, CO, CI - Last Documented Arterial Blood Pressure 111/51 - Exam No acute distress, oriented 3. Currently on room air. Saturations are 92-94%. HEENT examination is grossly unremarkable. NG tube in place. Neck supple. Full range of motion. No adenopathy thyromegaly or neck vein distention. Cardiovascular examination reveals an irregular rhythm and rate. S1-S2 normal. No S3 or S4. No discernible murmur noted. . Lungs reveal mostly clear breath sounds. Mild scattered rhonchi. No wheezes or crackles. Breath sounds equal bilaterally. Abdomen soft, without bowel sounds. Minimal tenderness. Surgical wound site is clean. [place] are all intact. There is some wheezing of serosanguineous material from the wound surface specially at the level of the umbilicus. No direct tenderness no rebound tenderness. No guarding. Extremities are intact. No cyanosis clubbing or edema. Skin is without rash or lesion. Neurologically, the patient is awake and alert and the patient does not have any focal neurological deficit. Cranial nerves are essentially intact. - Labs CBC & Chem 7: 05/15/21 05:55 05/15/21 05:55 Labs: Abnormal Lab Results - Last 24 Hours (Table) 05/15/21 05/15/21 Range/Units 05:55 05:55 RBC 3.70 L (4.30-5.90) m/uL Hgb 12.0 L (13.0-17.5) gm/dL Hct 37.1 L (39.0-53.0) % MCV 100.1 H (80.0-100.0) fL Plt Count 145 L (150-450) k/uL Neutrophils # 9.3 H (1.3-7.7) k/uL Lymphocytes # 0.7 L (1.0-4.8) k/uL Chloride 115 H (98-107) mmol/L Carbon Dioxide 20 L (22-30) mmol/L BUN 21 H (9-20) mg/dL Glucose 63 L (74-99) mg/dL Calcium 7.3 L (8.4-10.2) mg/dL Microbiology - Last 24 Hours (Table) 05/10/21 16:26 Blood Culture - Preliminary Blood No Growth after 96 hours Assessment and Plan Plan: Postop day #4, status post exploratory laparotomy, lysis of adhesions, removal of intraperitoneal mesh, and small bowel resection, for high-grade small bowel obstruction. The patient is doing well. NG tube will be removed today and the patient was started on clear liquid diet. Surgical wound site shows no sign of any infection although there is some oozing of liquidy material from the wound surface, essentially serosanguineous. Routine postoperative ventilator management, with extubation on 05/12/2021. Chronic atrial fibrillation. The rate is controlled for now. Prior history of bowel resection. History of sick sinus syndrome, status post pacemaker implantation. Hyperlipidemia. Hypothyroidism. Valvular heart disease. Mild COPD with an FEV1 of 80% of predicted. Meniere's disease BPH, the patient has a Narvaez catheter in place Plan: Remove the NG tube. Allow clear liquid diet Continue using incentive spirometer Monitor surgical wound site Continue amiodarone drip at 0.5 mg per minute and the patient can be switched to metoprolol orally once the patient is able to take tablets. This will be used in combination with his Eliquis. Continue Flagyl Continue IV fluids with normal saline at rate of 75 mL an hour We'll continue to follow
[2021-05-15] MEDS: AMIODARONE 450 MG in DEXTROSE 5% IN WATER 250 ML IV SCH ×2 (15:23)
[2021-05-15] MEDS: METOPROLOL TARTRATE 25 MG TAB PO SCH (20:43)
[2021-05-15] MEDS: MELATONIN 5 MG TABLET PO PRN (20:43)
[2021-05-15] MEDS: APIXABAN 5 MG TAB PO SCH (20:43)
[2021-05-16] MEDS: HYDROmorphone 0.5 MG/0.5 ML SYRINGE IVP PRN ×3 (03:00→18:11)
[2021-05-16] MEDS: IPRATROPIUM-ALBUTEROL 3 ML NEB INHALATION PRN (05:55)
[2021-05-16] MEDS: LEVOTHYROXINE 50 MCG TAB PO SCH (06:22)
[2021-05-16] MEDS: PANTOPRAZOLE 40 MG TABLET PO SCH (06:22)
[2021-05-16 07:07] LABS: Basophils % (A) 0 %; Eosinophils % (A) 1 %; HCT 38.9 % (39.0-53.0); HGB 12.4 gm/dL (13.0-17.5); Lymphocytes # (A) 0.7 k/uL (1.0-4.8); Lymphocytes % (A) 11 %; MCH 32.2 pg (25.0-35.0); MCHC 31.9 g/dL (31.0-37.0); MCV 101.1 fL (80.0-100.0); Macrocytosis Slight; Mean Platelet Volume 7.6; Monocytes # (A) 0.3 k/uL (0-1.0); Monocytes % (A) 4 %; Neutrophils # (A) 5.7 k/uL (1.3-7.7); Neutrophils % (A) 83 %; Platelet Count 162 k/uL (150-450); RBC 3.85 m/uL (4.30-5.90); RDW 14.5 % (11.5-15.5); WBC 6.8 k/uL (3.8-10.6)
[2021-05-16 07:22] LABS: African American GFR (CKD) >90 (>60 ml/min/1.73 sqM); Anion Gap 2 mmol/L; Blood Urea Nitrogen 20 mg/dL (9-20); Calcium 7.1 mg/dL (8.4-10.2); Carbon Dioxide 23 mmol/L (22-30); Chloride 118 mmol/L (98-107); Glucose 113 mg/dL (74-99); Non-African American GFR(CKD) 87 (>60 ml/min/1.73 sqM); Potassium 3.6 mmol/L (3.5-5.1); Sodium 143 mmol/L (137-145)
--- NOTE | 2021-05-16 07:51 | P.PN ---
Subjective Progress Note Date: 05/16/21 pt with clot urine retention. The urine has cleared. I will d/c the cath this am Objective - Vital Signs Vital signs: Vital Signs Temp 98.0 F 05/16/21 02:58 Pulse 95 05/16/21 06:06 Resp 20 05/16/21 02:58 BP 128/68 05/16/21 02:58 Pulse Ox 93 L 05/16/21 02:58 Intake & Output 05/15/21 05/16/21 05/16/21 18:59 06:59 18:59 Intake Total 1382 Balance 1382 Weight 97.8 kg Intake: IV 700 Sodium Chloride 0.9% 1, 600 000 ml @ 75 mls/hr IV . [id number] [facility] Rx#:[id number] metroNIDAZOLE-NS PMX 500 100 mg In Saline 1 100ml.bag @ 100 mls/hr IVPB Q8HR [facility] Rx#:[id number] Intake, IV Titration 80 Amount Amiodarone 450 mg In 80 Dextrose 5% in Water 250 ml @ 0.5 MG/MIN 16.667 mls/hr IV .Q15H [facility] Rx#: [id number] Oral 602 Other: Voiding Method Indwelling Catheter Indwelling Catheter ABP, PAP, CO, CI - Last Documented Arterial Blood Pressure 111/51 - Labs CBC & Chem 7: 05/16/21 06:46 05/16/21 06:46 Labs: Abnormal Lab Results - Last 24 Hours (Table) 05/15/21 05/16/21 05/16/21 Range/Units 05:55 06:46 06:46 RBC 3.85 L (4.30-5.90) m/uL Hgb 12.4 L (13.0-17.5) gm/dL Hct 38.9 L (39.0-53.0) % MCV 101.1 H (80.0-100.0) fL Lymphocytes # 0.7 L (1.0-4.8) k/uL Chloride 115 H 118 H (98-107) mmol/L Carbon Dioxide 20 L (22-30) mmol/L BUN 21 H (9-20) mg/dL Glucose 63 L 113 H (74-99) mg/dL Calcium 7.3 L 7.1 L (8.4-10.2) mg/dL Microbiology - Last 24 Hours (Table) 05/10/21 16:26 Blood Culture - Preliminary Blood No Growth after 120 hours
[2021-05-16] MEDS: METOPROLOL TARTRATE 25 MG TAB PO SCH ×2 (08:50→20:51)
[2021-05-16] MEDS: metroNIDAZOLE-NS PMX 500 MG in SALINE 1 100ML.BAG IVPB SCH ×2 (08:50→17:39)
[2021-05-16] MEDS: APIXABAN 5 MG TAB PO SCH ×2 (08:50→20:51)
[2021-05-16] MEDS: AMIODARONE 450 MG in DEXTROSE 5% IN WATER 250 ML IV SCH ×2 (08:51)
--- NOTE | 2021-05-16 10:58 | P.PN ---
<Fadia Leyva M - Last Filed: 05/16/21 10:42> Subjective Progress Note Date: 05/16/21 Principal diagnosis: Abdominal pain 80-year-old white male patient with past medical history of smoking, stage II COPD, baseline FEV1 80% of predicted, obstructive sleep apnea on APAP therapy, benign prostatic hyperplasia, previous history of intestinal obstruction with bowel resection surgery, history of a permanent pacemaker insertion, chronic kidney disease, chronic paralysis of hemidiaphragm, atrial fibrillation on Eliquis, BPH, chronic back pain, former smoker. Patient came in on 05/10/2021 w ith complaints of abdominal pain and vomiting. CT of the abdomen and pelvis in the ER showing marked dilation of the proximal small bowel loops and stomach highly suggestive of high-grade small bowel obstruction, 8mm posterior bladder calculus, cardiomegaly with small pericardial effusion and basilar atelectasis, prostate hypertrophy. White blood cell count is 22.1, hemoglobin is 19.8, platelet count was 205, sodium is 131, potassium is 5.1, chloride 97, CO2 is 24, BUN is 58, creatinine is 1.34, LFTs are within normal limits, amylase was 106, lipase was 107, urinalysis was negative for signs of infection. Surgical services have been consulted, NG tube has been inserted, patient remains nothing by mouth, he is scheduled for exploratory laparotomy on 05/11/[address] Collado, patient is getting IV hydration, alk phos is on hold. Denies any difficulty breathing, chest x-ray showing chronic changes without evidence for acute pulmonary disease. On 05/12/2021 patient seen in follow-up in the intensive care unit, yesterday patient had exploratory laparotomy with removal of intraperitoneal mesh, lysis of extensive adhesions, and small bowel resection. Patient [facility] intubated and sedated. Currently remains on assist-control ventilation with a rate of 16, tidal volume 500, FiO2 of 50% and PEEP of 5. This morning's blood gas shows pO2 of 127, pCO2 of 32, and pH of 7.36 this was on 50% FiO2. Chest x-ray shows ET tube 5.5 cm above the rona, NG tube in appropriate position, with the tip below the diaphragm, and right central venous line with the tip within the right atrium. Persistent elevation of the right hemidiaphragm, small bilateral pleural effusions. Patient is currently on 0.9 normal saline at a rate of 75 ML per hour, amiodarone at 0.5 g/m, vasopressin is at 0.03 units per minute, and improving his at 3 mics per kilo per minute. Yesterday in the postoperative period patient went into A. fib with RVR, patient does have history of chronic A. fib, however she was loaded with amiodarone and started on amiodarone drip per protocol, currently heart rate is better controlled. Received 2 L in IV fluid boluses, and maintenance IV fluids infusing at 75 ML per hour, abiotic's in the form of Flagyl. Today's labs have been reviewed, white blood cell count is 7.4, hemoglobin is 14.9, platelet count is 136, sodium is 134, potassium is 4.3, chloride is 112, CO2 17, BUN is 33, creatinine is 1.01. Surgical incisions are clean dry and intact, abdomen is soft but tender to touch. NG tube remains in place, patient is nothing by out, no tube feedings or TPN yet. Will await further recommendations from surgery in regards to the timing of nutrition initiation. On 05/15/2021, I'm seeing the patient for a follow-up. The patient is postop day #4. The patient underwent laparotomy, removal of a intraperitoneal mesh and lysis of adhesions and small bowel resection for small bowel obstruction. The patient also has extensive adhesions and intraperitoneal mesh removal. The patient's surgical with that and recommended that although there is some serosanguineous material was weaned from the wound surface. The patient is go ing to require wound change and dressing change. The patient remains in atrial fibrillation. The patient is doing well. He is using incentive spirometer. He is afebrile. NG tube was removed today by surgery and the patient will be started on clear liquid diet. His pain is under adequate control. The patient remains on subcutaneous heparin for DVT prophylaxis. He is slightly tachycardic and today's evaluation the patient remains in atrial fibrillation. The white cell count of 10.5 with hemoglobin of 12 and a platelet count of 145. BUN is at 21 with a creatinine of 0.9 and sodium level is at 141. On 05/16/2021 patient seen in follow-up on selective care unit, today is postoperative day number 5, status post laparotomy, removal of intraperitoneal mesh and lysis of adhesions and small bowel resection for small bowel obstruction. Patient is awake and alert, he is oriented 3, he is currently on room air, with a pulse ox of 94%, breathing comfortably, denies any dyspnea unless he is ambulating, and generally patient is weak, he is requiring the use of a walker and one person assist. Lung sounds are negative for any wheezing, denies any cough or phlegm production, he is working on his incentive spirometer quite diligently, and he is receiving 1.25 liters on the today. X-ray on 05/13/2021 shows small bilateral pleural effusions. Patient is tolerating clear liquid diet. And has not had any bowel movements, however he is passing flatus. Hemodynamically has remained stable, remains in atrial fibrillation which is chronic for him but the rate is controlled, his Ahlquist has been resumed with surgical clearanc Cardiology is following. His had no acute events overnight. he was experiencing some hematuria and retention, and urology consultation has been obtained, urine has cleared up, and Narvaez catheter has been removed this morning. Objective - Vital Signs Vital signs: Vital Signs Temp 98.3 F 05/16/21 09:02 Pulse 94 05/16/21 09:02 Resp 18 05/16/21 09:02 BP 115/73 05/16/21 09:02 Pulse Ox 94 L 05/16/21 09:02 Intake & Output 05/15/21 05/16/21 05/16/21 18:59 06:59 18:59 Intake Total 1382 250 180 Output Total 150 Balance 1382 100 180 Weight 97.8 kg Intake: IV 700 Sodium Chloride 0.9% 1, 600 000 ml @ 75 mls/hr IV . [id number] [facility] Rx#:[id number] metroNIDAZOLE-NS PMX 500 100 mg In Saline 1 100ml.bag @ 100 mls/hr IVPB Q8HR [facility] Rx#:[id number] Intake, IV Titration 80 250 Amount Amiodarone 450 mg In 80 250 Dextrose 5% in Water 250 ml @ 0.5 MG/MIN 16.667 mls/hr IV .Q15H [facility] Rx#: [id number] Oral 602 180 Output: Urine 150 Other: Voiding Method Indwelling Catheter Indwelling Catheter ABP, PAP, CO, CI - Last Documented Arterial Blood Pressure 111/51 - Exam GENERAL EXAM: Awake and alert, 80-year-old white male, on room air, with a pulse ox of 94% Comfortable in no apparent distress. HEAD: Normocephalic/atraumatic. EYES: Normal reaction of pupils, equal size. Conjunctiva pink, sclera white. NOSE: Clear with pink turbinates. THROAT: No erythema or exudates. NECK: No masses, no JVD, no thyroid enlargement, no adenopathy. CHEST: No chest wall deformity. Symmetrical expansion. LUNGS: Equal air entry with no crackles, wheeze, rhonchi or dullness. CVS: Irregular rate and rhythm, normal S1 and S2, no gallops, no murmurs, no rubs ABDOMEN: Soft, mild postsurgical tenderness. abdominal incision is clean dry and intact with some mild serosanguineous drainage, tory are intact, abdominal incision is covered with a surgical dressing No hepatosplenomegaly, normal bowel sounds, no guarding or rigidity. Abdominal incision is clean dry and intact, abdomen is soft, but tender to touch, abdominal binder is in place EXTREMITIES: No clubbing, no edema, no cyanosis, 2+ pulses and upper and lower extremities. MUSCULOSKELETAL: Muscle strength and tone normal. SPINE: No scoliosis or deformity SKIN: No rashes CENTRAL NERVOUS SYSTEM: Awake and alert. No focal deficits, tone is normal in all 4 extremities. - Labs CBC & Chem 7: 05/16/21 06:46 05/16/21 06:46 Labs: Abnormal Lab Results - Last 24 Hours (Table) 05/16/21 05/16/21 Range/Units 06:46 06:46 RBC 3.85 L (4.30-5.90) m/uL Hgb 12.4 L (13.0-17.5) gm/dL Hct 38.9 L (39.0-53.0) % MCV 101.1 H (80.0-100.0) fL Lymphocytes # 0.7 L (1.0-4.8) k/uL Chloride 118 H (98-107) mmol/L Glucose 113 H (74-99) mg/dL Calcium 7.1 L (8.4-10.2) mg/dL Microbiology - Last 24 Hours (Table) 05/10/21 16:26 Blood Culture - Preliminary Blood No Growth after 120 hours Assessment and Plan Plan: Assessment: #1. High-grade small bowel obstruction, status post exploratory laparotomy on 05/11/2021, with extensive lysis of adhesions, intraperitoneal mesh removal, and small bowel resection #2. Routine postoperative ventilator management, safely weaned and extubated, currently tolerating extubation quite well so far #3. A. fib with RVR in the postoperative period, had been started on amiodarone drip, Ella better controlled, and amiodarone drip has been discontinued. Eliquis was has been restarted #4. Hematuria, resolved, urology is following, Narvaez has been discontinued #5. Previous history of bowel resection #6. History of chronic atrial fibrillation, on Eliquis athome #7. History of sick sinus syndrome with history of pacemaker implantation #8 Hyperlipidemia #9. Hypothyroidism #10. Valvular heart disease #11. Mild COPD with baseline FEV1 of 80%, stable Plan: Current medical treatment Encourage incentive spirometry use COPD is stable Continue breathing treatments Antibitocs per surgery tolerating oral intake HR is controlled, remains in Afib Eliquis has been restarted with surg clearance Narvaez cath removed, voiding trials in progress urology recs Encourage ambulation Will continue to follow I have personally seen and examined the patient, performed the documentation and the assessment and plan as written. Number of minutes spent on the visit: [10] Time with Patient: Less than 30 <Tami Rincon - Last Filed: 05/16/21 12:42> Objective - Vital Signs Vital signs: Vital Signs Temp 98.3 F 05/16/21 09:02 Pulse 94 05/16/21 09:02 Resp 18 05/16/21 09:02 BP 115/73 05/16/21 09:02 Pulse Ox 94 L 05/16/21 09:02 Intake & Output 05/15/21 05/16/21 05/16/21 18:59 06:59 18:59 Intake Total 1382 250 180 Output Total 150 100 Balance 1382 100 80 Weight 97.8 kg Intake: IV 700 Sodium Chloride 0.9% 1, 600 000 ml @ 75 mls/hr IV . [id number] [facility] Rx#:[id number] metroNIDAZOLE-NS PMX 500 100 mg In Saline 1 100ml.bag @ 100 mls/hr IVPB Q8HR [facility] Rx#:[id number] Intake, IV Titration 80 250 Amount Amiodarone 450 mg In 80 250 Dextrose 5% in Water 250 ml @ 0.5 MG/MIN 16.667 mls/hr IV .Q15H [facility] Rx#: [id number] Oral 602 180 Output: Urine 150 100 Uretheral (Narvaez) 100 Other: Voiding Method Indwelling Catheter Indwelling Catheter ABP, PAP, CO, CI - Last Documented Arterial Blood Pressure 111/51 - Labs CBC & Chem 7: 05/16/21 06:46 05/16/21 06:46 Labs: Abnormal Lab Results - Last 24 Hours (Table) 05/16/21 05/16/21 Range/Units 06:46 06:46 RBC 3.85 L (4.30-5.90) m/uL Hgb 12.4 L (13.0-17.5) gm/dL Hct 38.9 L (39.0-53.0) % MCV 101.1 H (80.0-100.0) fL Lymphocytes # 0.7 L (1.0-4.8) k/uL Chloride 118 H (98-107) mmol/L Glucose 113 H (74-99) mg/dL Calcium 7.1 L (8.4-10.2) mg/dL Microbiology - Last 24 Hours (Table) 05/10/21 16:26 Blood Culture - Preliminary Blood No Growth after 120 hours Assessment and Plan Plan: I have personally seen and examined the patient and reviewed the documentation. I performed a joint evaluation with the nurse practitioner in this evaluation was done more than 20 minutes. I fully agree with the documentation above and the plan of care. The patient is is doing well. Pulmonary status is stable. Heart rate is under better control and he remains in atrial fibrillation. Anticoagulation was restarted. Surgical wound site was inspected. Continue antibiotics. We'll continue to follow.
--- NOTE | 2021-05-16 14:20 | P.PN ---
<Filomena Aguilar - Last Filed: 05/16/21 14:16> Subjective Progress Note Date: 05/16/21 CHIEF COMPLAINT: Small bowel obstruction HISTORY OF PRESENT ILLNESS: Patient is postop day #6 status post exploratory laparotomy, removal of intraperitoneal mesh, lysis of extensive adhesions and small bowel resection for small bowel obstruction, extensive adhesions, intraperitoneal mesh. Patient reports his pain is controlled. He is having flatus no bowel movement. Denies any nausea or vomiting. His abdomen is still slightly distended. He is going very slow on the liquids. Afebrile. WBC is 6.8 hemoglobin is 12.4. PHYSICAL EXAM: VITAL SIGNS: Reviewed. GENERAL: Intubated. HEENT: Moist buccal mucosa. Head is atraumatic, normocephalic. ABDOMEN: Soft. Distended. Incision site with serosanguineous drainage at the umbilicus. Incision site with surrounding erythema distally ASSESSMENT: 1. Status post exploratory laparotomy, removal of intraperitoneal mesh, lysis of extensive adhesions and small bowel resection for small bowel obstruction, extensive adhesions and intraperitoneal mesh 2. A. fib with RVR during surgery PLAN: -Continue clear liquid diet -Continue to monitor incision site closely -Continue IV fluids -Continue pain medication as needed -Eliquis restarted yesterday -Encourage patient to ambulate -Continue GI prophylaxis Physician [place] Worker note has been reviewed by physician. Signing provider agrees with the documented findings, assessment, and plan of care. Objective - Vital Signs Vital signs: Vital Signs Temp 98.3 F 05/16/21 09:02 Pulse 86 05/16/21 12:45 Resp 18 05/16/21 12:45 BP 120/75 05/16/21 12:45 Pulse Ox 95 05/16/21 12:45 Intake & Output 05/15/21 05/16/21 05/16/21 18:59 06:59 18:59 Intake Total 1382 250 180 Output Total 150 100 Balance 1382 100 80 Weight 97.8 kg Intake: IV 700 Sodium Chloride 0.9% 1, 600 000 ml @ 75 mls/hr IV . [id number] [facility] Rx#:[id number] metroNIDAZOLE-NS PMX 500 100 mg In Saline 1 100ml.bag @ 100 mls/hr IVPB Q8HR [facility] Rx#:[id number] Intake, IV Titration 80 250 Amount Amiodarone 450 mg In 80 250 Dextrose 5% in Water 250 ml @ 0.5 MG/MIN 16.667 mls/hr IV .Q15H [facility] Rx#: [id number] Oral 602 180 Output: Urine 150 100 Uretheral (Narvaez) 100 Other: Voiding Method Indwelling Catheter Indwelling Catheter ABP, PAP, CO, CI - Last Documented Arterial Blood Pressure 111/51 - Labs CBC & Chem 7: 05/16/21 06:46 05/16/21 06:46 Labs: Abnormal Lab Results - Last 24 Hours (Table) 05/16/21 05/16/21 Range/Units 06:46 06:46 RBC 3.85 L (4.30-5.90) m/uL Hgb 12.4 L (13.0-17.5) gm/dL Hct 38.9 L (39.0-53.0) % MCV 101.1 H (80.0-100.0) fL Lymphocytes # 0.7 L (1.0-4.8) k/uL Chloride 118 H (98-107) mmol/L Glucose 113 H (74-99) mg/dL Calcium 7.1 L (8.4-10.2) mg/dL Microbiology - Last 24 Hours (Table) 05/10/21 16:26 Blood Culture - Preliminary Blood No Growth after 120 hours <Wang De La Rosa - Last Filed: 05/16/21 17:01> Subjective I have personally seen and examined the patient, reviewed the V BLOCK SAW OPERATOR /PAs history, exam and MDM and agree with the assessment and plan as written. Based on total visit time, I have performed more than 50% of the visit. As above: Patient slightly confused today. Having mild abdominal discomfort. Says he is passing flatus but no bowel movement. He sat on the commode earlier today. Denies nausea or vomiting. Appetite is diminished. On exam the patient does appear slightly more distended than yesterday. Mild tenderness, incision with small amount of drainage. Continue increasing activity. No further liquids tonight discussed with nursing staff. Objective - Vital Signs Vital signs: Vital Signs Temp 98.3 F 05/16/21 09:02 Pulse 86 05/16/21 14:00 Resp 18 05/16/21 14:00 BP 120/75 05/16/21 12:45 Pulse Ox 95 05/16/21 12:45 Intake & Output 05/15/21 05/16/21 05/16/21 18:59 06:59 18:59 Intake Total 1382 250 730 Output Total 150 100 Balance 1382 100 630 Weight 97.8 kg Intake: IV 700 550 Sodium Chloride 0.9% 1, 600 450 000 ml @ 75 mls/hr IV . [id number] [facility] Rx#:[id number] metroNIDAZOLE-NS PMX 500 100 100 mg In Saline 1 100ml.bag @ 100 mls/hr IVPB Q8HR [facility] Rx#:[id number] Intake, IV Titration 80 250 Amount Amiodarone 450 mg In 80 250 Dextrose 5% in Water 250 ml @ 0.5 MG/MIN 16.667 mls/hr IV .Q15H [facility] Rx#: [id number] Oral 602 180 Output: Urine 150 100 Uretheral (Narvaez) 100 Other: Voiding Method Indwelling Catheter Indwelling Catheter # Voids 1 ABP, PAP, CO, CI - Last Documented Arterial Blood Pressure 111/51 - Labs CBC & Chem 7: 05/16/21 06:46 05/16/21 06:46 Labs: Abnormal Lab Results - Last 24 Hours (Table) 05/16/21 05/16/21 Range/Units 06:46 06:46 RBC 3.85 L (4.30-5.90) m/uL Hgb 12.4 L (13.0-17.5) gm/dL Hct 38.9 L (39.0-53.0) % MCV 101.1 H (80.0-100.0) fL Lymphocytes # 0.7 L (1.0-4.8) k/uL Chloride 118 H (98-107) mmol/L Glucose 113 H (74-99) mg/dL Calcium 7.1 L (8.4-10.2) mg/dL Microbiology - Last 24 Hours (Table) 05/10/21 16:26 Blood Culture - Preliminary Blood No Growth after 120 hours Assessment and Plan (1) Small bowel obstruction Current Visit: Yes Status: Acute Code(s): K56.69 - OTHER INTESTINAL OBSTRUCTION * DO NOT USE * SNOMED Code(s): 858270274
--- NOTE | 2021-05-16 14:24 | P.PN ---
Subjective This is a 80 year old male with a past medical history significant for sick sinus syndrome with previous pacemaker implantation, permanent atrial fib rillation, moderate mitral regurgitation, hypothyroidism, and hyperlipidemia. Patient follows in the office with Dr. Triplett. We have been asked to see the patient in consultation for atrial fibrillation. Patient presented to the emergency department with abdominal pain and was found to have small bowel obstruction. Patient is status post exploratory laparotomy, removal of intraperitoneal mesh, lysis of extensive adhesions and small bowel resection for small bowel obstruction, extensive adhesions, intraperitoneal mesh on 05/11/2021. Patient was maintained on IV amiodarone drip and anticoagulation was held due to surgery. 05/16/2021 Patient seen and examined at bedside, no acute distress. His IV amiodarone has been discontinued as Eliquis has been restarted. He is currently in atrial fibrillation with controlled ventricular rates. He is hemodynamically stable. H e's currently maintained on Eliquis 5 mg twice a day, metoprolol tartrate 25 mg twice a day PHYSICAL EXAM: VITAL SIGNS: Reviewed. GENERAL: Well-developed in no acute distress. HEENT: . Neck supple. No JVD LUNGS: Respirations even and unlabored. Lungs essentially clear to auscultation bilaterally. HEART: Irregular rate and rhythm. S1 and S2 heard. ABDOMEN: Soft. EXTREMITIES: Normal range of motion. No clubbing or cyanosis. Peripheral pulses intact. No lower extremity edema NEUROLOGIC: Awake and alert. Oriented x 3. ASSESSMENT: High grade small bowel obstruction Status post exploratory laparotomy, removal of intraperitoneal mesh, lysis of extensive adhesions and small bowel resection for small bowel obstruction 05/11/21 Permanent atrial fibrillation, on long-term anticoagulation with Eliquis Sick sinus syndrome with previous pacemaker implantation Valvular heart disease Hyperlipidemia Hypothyroidism PLAN: Continue beta deangelo Per surgery ok to restart Eliquis 5mg BID and ok to start PO medications Continue cardiac telemetry. Further recommendations pending patient course Nurse practitioner note has been reviewed by physician. Signing provider agrees with the documented findings, assessment, and plan of care. Objective - Vital Signs Vital signs: Vital Signs Temp 98.3 F 05/16/21 09:02 Pulse 86 05/16/21 12:45 Resp 18 05/16/21 12:45 BP 120/75 05/16/21 12:45 Pulse Ox 95 05/16/21 12:45 Intake & Output 0305/16/21 05/16/21 18:59 06:59 18:59 Intake Total 1382 250 180 Output Total 150 100 Balance 1382 100 80 Weight 97.8 kg Intake: IV 700 Sodium Chloride 0.9% 1, 600 000 ml @ 75 mls/hr IV . [id number] [facility] Rx#:[id number] metroNIDAZOLE-NS PMX 500 100 mg In Saline 1 100ml.bag @ 100 mls/hr IVPB Q8HR [facility] Rx#:[id number] Intake, IV Titration 80 250 Amount Amiodarone 450 mg In 80 250 Dextrose 5% in Water 250 ml @ 0.5 MG/MIN 16.667 mls/hr IV .Q15H [facility] Rx#: [id number] Oral 602 180 Output: Urine 150 100 Uretheral (Narvaez) 100 Other: Voiding Method Indwelling Catheter Indwelling Catheter ABP, PAP, CO, CI - Last Documented Arterial Blood Pressure 111/51 - Labs CBC & Chem 7: 05/16/21 06:46 05/16/21 06:46 Labs: Abnormal Lab Results - Last 24 Hours (Table) 05/16/21 05/16/21 Range/Units 06:46 06:46 RBC 3.85 L (4.30-5.90) m/uL Hgb 12.4 L (13.0-17.5) gm/dL Hct 38.9 L (39.0-53.0) % MCV 101.1 H (80.0-100.0) fL Lymphocytes # 0.7 L (1.0-4.8) k/uL Chloride 118 H (98-107) mmol/L Glucose 113 H (74-99) mg/dL Calcium 7.1 L (8.4-10.2) mg/dL Microbiology - Last 24 Hours (Table) 05/10/21 16:26 Blood Culture - Preliminary Blood No Growth after 120 hours
[2021-05-16] MEDS: SODIUM CHLORIDE 0.9% 1,000 ML IV SCH (17:39)
--- NOTE | 2021-05-16 19:47 | P.PN ---
Subjective Progress Note Date: 05/16/21 This is a pleasant 80-year-old male who was recently admitted with abdominal pain and discomfort with constipation and patient also found to be dehydrated and being closely monitored. Patient underwent CT abdomen and pelvis which showed marked dilation of several small bowel loops including the stomach with an abrupt caliber change within the mid abdomen. Centrally to the left with a normal filling distal loops and findings are felt to be highly suspicious for high-grade small bowel obstruction with internal hernia or adhesions not entirely excluded. Appendix appeared normal. Patient to continue with NG tube and nothing by mouth at this time. Cardiology consulted for surgical clearance which is currently pending. Patient denies any chest pain or shortness of breath. Patient is afebrile. Patient also continued on IV Protonix along with Flagyl an appropriate home medications have been resumed. 05/12/2021 Patient is seen and evaluated in follow-up continues to be closely monitored wi th multiple medical consultations following. Patient is status post exploratory laparotomy and underwent removal of intraperitoneal mesh, extensive lysis of adhesions, small bowel resection and is being closely monitored. Patient is in the ICU and is recently intubated and currently being weaned off sedation for possible extubation. Patient was also noted to have A. fib with RVR during surgery and cardiology is following. Patient with indwelling Lnage catheter and noted hematuria and urology has been consulted. Urine culture finalized showing apparent skin and/or genital andreas. Patient is maintained on IV antibiotics in the form of Flagyl and will continue. On exam patient is awake and following the commands appropriately but somewhat confused per nursing staff. Chest x-ray this morning shows left upper chest wall dual-lead pacemaker with persistent elevation of the right hemidiaphragm and small bilateral pleural effusions unchanged. 05/15/2021 Patient is seen and evaluated in follow-up this morning with at the bedside currently sitting up in the chair. NG tube is being removed and patient is being started on low-sodium clear liquid diet per surgery recommendations. Multiple medical consultations following and patient is status post exploratory laparotomy. Patient continues on IV antibiotics in the form of Flagyl. Patient being transitioned to oral anticoagulant along with oral Lopressor and patient is off IV amiodarone. Incentive spirometer at the bedside and encourage the patient to continue using at least 10 times every hour while awake. Urology has evaluated the patient recommending trial voiding tomorrow and monitoring for any retention and/or further hematuria. PT/OT following. Patient reports to passing gas although no reports bowel movements as of yet. Patient denies chest pain, shortness of breath, or palpitations. Patient is afebrile. White blood count currently normalized at 10.5. 05/16/2021 Patient is seen in follow up today and reports to feeling some mild abdominal pain and passing minimal gas with no bowel movement. General surgery following and continues on clear liquids. Patient had lange catheter removed today and is due to void. Urology following for hematuria. Reports to less blood noted although continues to be present. Patient is on IV flagyl and surgical site noted to have some drainage. Patient reports to abdominal pain but denies nausea or vomiting. Patient denies chest pain or shortness of breath. Patient is afebrile. PT/OT working with the patient and patient is weak. All medications have been reviewed Active Medications Albuterol/Ipratropium (Ipratropium-Albuterol 3 Ml Neb) 3 ml INHALATION RT-TID PRN PRN Reason: Shortness Of Breath Or Wheezing Last Admin: 05/16/21 05:55 Dose: 3 ml Documented by: Apixaban (Apixaban 5 Mg Tab) 5 mg PO BID [facility]; Protocol Last Admin: 05/16/21 08:50 Dose: 5 mg Documented by: Hydromorphone HCl (Hydromorphone 0.5 Mg/0.5 Ml Syringe) 0.5 mg IVP Q3HR PRN PRN Reason: Moderate Pain Last Admin: 05/16/21 18:11 Dose: 0.5 mg Documented by: Sodium Chloride (Saline 0.9%) 1,000 mls @ 75 mls/hr IV .[id number] [facility] Last Admin: 05/16/21 17:39 Dose: 75 mls/hr Documented by: Metronidazole 500 mg/ IV (Solution) 100 mls @ 100 mls/hr IVPB Q8HR [facility]; Protocol Last Admin: 05/16/21 17:39 Dose: 100 mls/hr Documented by: Levothyroxine Sodium (Levothyroxine 50 Mcg Tab) 50 mcg PO DAILY@0630 [facility] Last Admin: 05/16/21 06:22 Dose: 50 mcg Documented by: Melatonin (Melatonin 5 Mg Tablet) 5 mg PO HS PRN PRN Reason: Insomnia Last Admin: 05/15/21 20:43 Dose: 5 mg Documented by: Metoprolol Tartrate (Metoprolol Tartrate 25 Mg Tab) 25 mg PO BID [facility] Last Admin: 05/16/21 08:50 Dose: 25 mg Documented by: Pantoprazole Sodium (Pantoprazole 40 Mg Tablet) 40 mg PO [id number] [facility] Last Admin: 05/16/21 06:22 Dose: 40 mg Documented by: PHYSICAL EXAMINATION: GENERAL: The patient is awake, alert and oriented 3, Well developed, well nourished. HEENT: Pupils are round and equally reacting to light. EOMI. does have scleral icterus. No conjunctival pallor. Normocephalic, atraumatic. No pharyngeal erythema. No thyromegaly. CARDIOVASCULAR: S1 and S2 muffled PULMONARY: diminished breath sounds bilaterally with no wheezing or rhonchi noted. ABDOMEN: soft. Tender. mildly-distended, hypoactive bowel sounds. surgical dr essing with some mild drainage noted. No palpable organomegaly. MUSCULOSKELETAL: No joint swelling or deformity. EXTREMITIES: No cyanosis, clubbing, or pedal edema. NEUROLOGICAL: Gross neurological examination did not reveal any focal deficits. SKIN: No rashes. Assessment: High-grade small bowel obstruction Status post exploratory laparotomy with removal of intraperitoneal mesh, lysis of extensive lesions and small bowel resection Atrial fibrillation with RVR during surgery, currently sinus rhythm Hematuria status post indwelling Lange catheter insertion Dehydration with acute renal failure, improving Elevated white blood count Paroxysmal atrial fibrillation History of sick sinus syndrome with pacemaker implantation Valvular heart disease Hyperlipidemia History of hypothyroidism Chronic obstructive pulmonary disease, not an exacerbation GI prophylaxis DVT prophylaxis Full code Plan: Recommend to continue with current medications and symptomatic management. Patient is currently sitting up in bed and reports to just getting up with assistance to the commode and had lange catheter removed. Patient reports to passing gas and denies bowel movements. Patient tolerating clear liquids. Due to void. Hematuria persists but has become less red per nursing staff. Anticoagulant resumed. Incentive spirometer at the bedside and encourage the patient continue using at least 10 times every hour while awake and also increased activity as tolerated. Physical therapy following the patient. Plan per patient is to go home once discharged. Eliquis being resumed. Will repeat a.m. labs. Due to multiple complex medical issues, prognosis is guarded. The impression and plan of care has been dictated by Renu Cantu, nurse practitioner as directed. MD Erica I have performed a history and examination and MDM of this patient, discussed the same with the dictator, and agree with the dictator's assessment and plan as written ,documented as a scribe. Based on total visit time, I have performed more than 50% of the visit. Objective - Vital Signs Vital signs: Vital Signs Temp 98.3 F 05/16/21 09:02 Pulse 94 05/16/21 09:02 Resp 18 05/16/21 09:02 BP 115/73 05/16/21 09:02 Pulse Ox 94 L 05/16/21 09:02 Intake & Output 05/15/21 05/16/21 05/16/21 18:59 06:59 18:59 Intake Total 1382 250 180 Output Total 150 Balance 1382 100 180 Weight 97.8 kg Intake: IV 700 Sodium Chloride 0.9% 1, 600 000 ml @ 75 mls/hr IV . [id number] [facility] Rx#:[id number] metroNIDAZOLE-NS PMX 500 100 mg In Saline 1 100ml.bag @ 100 mls/hr IVPB Q8HR [facility] Rx#:[id number] Intake, IV Titration 80 250 Amount Amiodarone 450 mg In 80 250 Dextrose 5% in Water 250 ml @ 0.5 MG/MIN 16.667 mls/hr IV .Q15H [facility] Rx#: [id number] Oral 602 180 Output: Urine 150 Other: Voiding Method Indwelling Catheter Indwelling Catheter ABP, PAP, CO, CI - Last Documented Arterial Blood Pressure 111/51 - Labs CBC & Chem 7: 05/16/21 06:46 05/16/21 06:46 Labs: Abnormal Lab Results - Last 24 Hours (Table) 05/16/21 05/16/21 Range/Units 06:46 06:46 RBC 3.85 L (4.30-5.90) m/uL Hgb 12.4 L (13.0-17.5) gm/dL Hct 38.9 L (39.0-53.0) % MCV 101.1 H (80.0-100.0) fL Lymphocytes # 0.7 L (1.0-4.8) k/uL Chloride 118 H (98-107) mmol/L Glucose 113 H (74-99) mg/dL Calcium 7.1 L (8.4-10.2) mg/dL Microbiology - Last 24 Hours (Table) 05/10/21 16:26 Blood Culture - Preliminary Blood No Growth after 120 hours
[2021-05-16] MEDS: MELATONIN 5 MG TABLET PO PRN (20:51)
[2021-05-17] MEDS: metroNIDAZOLE-NS PMX 500 MG in SALINE 1 100ML.BAG IVPB SCH ×3 (00:13→15:57)
[2021-05-17] MEDS: SODIUM CHLORIDE 0.9% 1,000 ML IV SCH ×2 (00:14→08:37)
[2021-05-17] MEDS: HYDROmorphone 0.5 MG/0.5 ML SYRINGE IVP PRN ×2 (00:19→03:33)
[2021-05-17] MEDS: LEVOTHYROXINE 50 MCG TAB PO SCH (06:57)
[2021-05-17] MEDS: PANTOPRAZOLE 40 MG TABLET PO SCH (06:57)
[2021-05-17 08:10] LABS: Basophils % (A) 0 %; Eosinophils # (A) 0.1 k/uL (0-0.7); Eosinophils % (A) 1 %; HCT 37.5 % (39.0-53.0); HGB 12.3 gm/dL (13.0-17.5); Hypochromasia Slight; Lymphocytes # (A) 0.6 k/uL (1.0-4.8); Lymphocytes % (A) 10 %; MCH 33.4 pg (25.0-35.0); MCHC 32.7 g/dL (31.0-37.0); MCV 102.1 fL (80.0-100.0); Macrocytosis Slight; Mean Platelet Volume 8.2; Monocytes # (A) 0.3 k/uL (0-1.0); Monocytes % (A) 4 %; Neutrophils # (A) 5.2 k/uL (1.3-7.7); Neutrophils % (A) 83 %; Platelet Count 160 k/uL (150-450); RBC 3.67 m/uL (4.30-5.90); RDW 14.1 % (11.5-15.5); WBC 6.3 k/uL (3.8-10.6)
[2021-05-17 08:30] LABS: African American GFR (CKD) >90 (>60 ml/min/1.73 sqM); Anion Gap 2 mmol/L; Blood Urea Nitrogen 22 mg/dL (9-20); Calcium 7.1 mg/dL (8.4-10.2); Carbon Dioxide 21 mmol/L (22-30); Chloride 122 mmol/L (98-107); Glucose 90 mg/dL (74-99); Non-African American GFR(CKD) 88 (>60 ml/min/1.73 sqM); Potassium 3.6 mmol/L (3.5-5.1); Sodium 145 mmol/L (137-145)
[2021-05-17] MEDS: METOPROLOL TARTRATE 25 MG TAB PO SCH ×2 (08:36→21:03)
[2021-05-17] MEDS: APIXABAN 5 MG TAB PO SCH ×2 (08:36→21:03)
--- NOTE | 2021-05-17 11:19 | P.PN ---
Subjective Progress Note Date: 05/17/21 Principal diagnosis: Abdominal pain 80-year-old white male patient with past medical history of smoking, stage II COPD, baseline FEV1 80% of predicted, obstructive sleep apnea on APAP therapy, benign prostatic hyperplasia, previous history of intestinal obstruction with bowel resection surgery, history of a permanent pacemaker insertion, chronic kidney disease, chronic paralysis of hemidiaphragm, atrial fibrillation on Eliquis, BPH, chronic back pain, former smoker. Patient came in on 05/10/2021 with complaints of abdominal pain and vomiting. CT of the abdomen and pelvis in the ER showing marked dilation of the proximal small bowel loops and stomach highly suggestive of high-grade small bowel obstruction, 8mm posterior bladder calculus, cardiomegaly with small pericardial effusion and basilar atelectasis, prostate hypertrophy. White blood cell count is 22.1, hemoglobin is 19.8, platelet count was 205, sodium is 131, potassium is 5.1, chloride 97, CO2 is 24, BUN is 58, creatinine is 1.34, LFTs are within normal limits, amylase was 106, lipase was 107, urinalysis was negative for signs of infection. Surgical services have been consulted, NG tube has been inserted, patient remains nothing by mouth, he is scheduled for exploratory laparotomy on 05/11/[address] Collado, patient is getting IV hydration, alk phos is on hold. Denies any difficulty breathing, chest x-ray showing chronic changes without evidence for acute pulmonary disease. On 05/12/2021 patient seen in follow-up in the intensive care unit, yesterday patient had exploratory laparotomy with removal of intraperitoneal mesh, lysis of extensive adhesions, and small bowel resection. Patient returned to the intensive care unit intubated and sedated. Currently remains on assist-control ventilation with a rate of 16, tidal volume 500, FiO2 of 50% and PEEP of 5. This morning's blood gas shows pO2 of 127, pCO2 of 32, and pH of 7.36 this was on 50% FiO2. Chest x-ray shows ET tube 5.5 cm above the rona, NG tube in appropriate position, with the tip below the diaphragm, and right central venous line with the tip within the right atrium. Persistent elevation of the right hemidiaphragm, small bilateral pleural effusions. Patient is currently on 0.9 normal saline at a rate of 75 ML per hour, amiodarone at 0.5 g/m, vasopressin is at 0.03 units per minute, and improving his at 3 mics per kilo per minute. Yesterday in the postoperative period patient went into A. fib with RVR, patient does have history of chronic A. fib, however she was loaded with amiodarone and started on amiodarone drip per protocol, currently heart rate is better controlled. Received 2 L in IV fluid boluses, and maintenance IV fluids infusing at 75 ML per hour, abiotic's in the form of Flagyl. Today's labs have been reviewed, white blood cell count is 7.4, hemoglobin is 14.9, platelet count is 136, sodium is 134, potassium is 4.3, chloride is 112, CO2 17, BUN is 33, creatinine is 1.01. Surgical incisions are clean dry and intact, abdomen is soft but tender to touch. NG tube remains in place, patient is nothing by mouth, no tube feedings or TPN yet. Will await further recommendations from surgery in regards to the timing of nutrition initiation. On 05/15/2021, I'm seeing the patient for a follow-up. The patient is postop day #4. The patient underwent laparotomy, removal of a intraperitoneal mesh and lysis of adhesions and small bowel resection for small bowel obstruction. The p atient also has extensive adhesions and intraperitoneal mesh removal. The patient's surgical with that and recommended that although there is some serosanguineous material was weaned from the wound surface. The patient is going to require wound change and dressing change. The patient remains in a trial fibrillation. The patient is doing well. He is using incentive spirometer. He is afebrile. NG tube was removed today by surgery and the patient will be started on clear liquid diet. His pain is under adequate control. The patient remains on subcutaneous heparin for DVT prophylaxis. He i s slightly tachycardic and today's evaluation the patient remains in atrial fibrillation. The white cell count of 10.5 with hemoglobin of 12 and a platelet count of 145. BUN is at 21 with a creatinine of 0.9 and sodium level is at 141. On 05/16/2021 patient seen in follow-up on selective care unit, today is postoperative day number 5, status post laparotomy, removal of intraperitoneal mesh and lysis of adhesions and small bowel resection for small bowel obstruction. Patient is awake and alert, he is oriented 3, he is currently on room air, with a pulse ox of 94%, breathing comfortably, denies any dyspnea unless he is ambulating, and generally patient is weak, he is requiring the use of a walker and one person assist. Lung sounds are negative for any wheezing, denies any cough or phlegm production, he is working on his incentive spirometer quite diligently, and he is receiving 1.25 liters on the today. X-ray on 05/13/2021 shows small bilateral pleural effusions. Patient is tolerating clear liquid diet. And has not had any bowel movements, however he is passing flatus. Hemodynamically has remained stable, remains in atrial fibrillation which is chronic for him but the rate is controlled, his Ahlquist has been resumed with surgical clearanc Cardiology is following. His had no acute events overnight. he was experiencing some hematuria and retention, and urology consultation has been obtained, urine has cleared up, and Narvaez catheter has been removed this morning. On 05/17/2021 patient seen in follow-up on selective care unit, he denies any worsening shortness of breath, he remains on room air, his pulse ox is 95-96%, hemodynamically stable, no cough, no congestion, lung sounds are clear to auscultation, he is working on incentive spirometer quite diligently, he is achieving 1.5 L on the today. Patient's today is postoperative day #6 status post exploratory laparotomy, with extensive lysis of adhesions, intraperitoneal mesh removal and small bowel resection. Surgical services are following, and there is increased abdominal distention, patient has not had a bowel movement but he has been passing flatus. He has been also experiencing some urinary retention, Narvaez is currently discontinued. At this point he is again nothing by mouth. Yesterday he was on clear liquid diet. He denies any nausea or vomiting. Today's labs have been reviewed, white blood cell count is 6.3, hemoglobin is 12.3, platelet count is 160, sodium is 145, potassium 3.6, chl oride is 122, chloride is 21, BUN is 22 creatinine 0.76. He remains in atrial fibrillation, his Elliquis has been restarted with surgical clearance. His rate is controlled. Objective - Vital Signs Vital signs: Vital Signs Temp 98.3 F 05/17/21 08:25 Pulse 98 05/17/21 08:25 Resp 18 05/17/21 08:25 BP 130/81 05/17/21 08:25 Pulse Ox 95 05/17/21 08:25 Intake & Output 05/16/21 05/17/21 05/17/21 18:59 06:59 18:59 Intake Total 730 Output Total 100 520 Balance 630 -520 Weight 97.8 kg Intake: IV 550 Sodium Chloride 0.9% 1, 450 000 ml @ 75 mls/hr IV . [id number] [facility] Rx#:[id number] metroNIDAZOLE-NS PMX 500 100 mg In Saline 1 100ml.bag @ 100 mls/hr IVPB Q8HR [facility] Rx#:[id number] Oral 180 Output: Urine 100 520 Straight 520 Uretheral (Narvaez) 100 Other: # Voids 1 0 ABP, PAP, CO, CI - Last Documented Arterial Blood Pressure 111/51 - Exam GENERAL EXAM: Awake and alert, 80-year-old white male, on room air, with a pulse ox of 94% Comfortable in no apparent distress. HEAD: Normocephalic/atraumatic. EYES: Normal reaction of pupils, equal size. Conjunctiva pink, sclera white. NOSE: Clear with pink turbinates. THROAT: No erythema or exudates. NECK: No masses, no JVD, no thyroid enlargement, no adenopathy. CHEST: No chest wall deformity. Symmetrical expansion. LUNGS: Equal air entry with no crackles, wheeze, rhonchi or dullness. CVS: Irregular rate and rhythm, normal S1 and S2, no gallops, no murmurs, no rubs ABDOMEN: Soft, mild postsurgical tenderness. abdominal incision is clean dry and intact with some mild serosanguineous drainage, tory are intact, a bdominal incision is covered with a surgical dressing No hepatosplenomegaly, normal bowel sounds, no guarding or rigidity. Abdominal incision is clean dry and intact, abdomen is soft, but tender to touch, abdominal binder is in place EXTREMITIES: No clubbing, no edema, no cyanosis, 2+ pulses and upper and lower extremities. MUSCULOSKELETAL: Muscle strength and tone normal. SPINE: No scoliosis or deformity SKIN: No rashes CENTRAL NERVOUS SYSTEM: Awake and alert. No focal deficits, tone is normal in all 4 extremities. - Labs CBC & Chem 7: 05/17/21 07:02 05/17/21 07:02 Labs: Abnormal Lab Results - Last 24 Hours (Table) 05/17/21 05/17/21 Range/Units 07:02 07:02 RBC 3.67 L (4.30-5.90) m/uL Hgb 12.3 L (13.0-17.5) gm/dL Hct 37.5 L (39.0-53.0) % MCV 102.1 H (80.0-100.0) fL Lymphocytes # 0.6 L (1.0-4.8) k/uL Chloride 122 H (98-107) mmol/L Carbon Dioxide 21 L (22-30) mmol/L BUN 22 H (9-20) mg/dL Calcium 7.1 L (8.4-10.2) mg/dL Microbiology - Last 24 Hours (Table) 05/10/21 16:26 Blood Culture - Final Blood No Growth after 144 hours Assessment and Plan Plan: Assessment: #1. High-grade small bowel obstruction, status post exploratory laparotomy on 05/11/2021, with extensive lysis of adhesions, intraperitoneal mesh removal, and small bowel resection #2. Routine postoperative ventilator management, safely weaned and extubated, currently tolerating extubation quite well so far #3. A. fib with RVR in the postoperative period, had been started on amiodarone drip, currently better controlled, and amiodarone drip has been discontinued. Eliquis was has been restarted #4. Hematuria, resolved, urology is following, Narvaez has been discontinued #5. Previous history of bowel resection #6. History of chronic atrial fibrillation, on Eliquis athome #7. History of sick sinus syndrome with history of pacemaker implantation #8 Hyperlipidemia #9. Hypothyroidism #10. Valvular heart disease #11. Mild COPD with baseline FEV1 of 80%, stable #12. Left upper extremity swelling, rule out possibility of DVT Plan: Remains stble from pulmonary perspective Continue encouraging deep breathing and coughing, incentive spirometry use Continue breathing treatments Remains in atrial fibrillation, the rate is controlled, Eliquis has been restarted He still experiencing some urinary retention, will defer to urology recommendations Hemodynamically hie is stable Currently feedings are on hold No nausea or vomiting, Surgeries considering TPN Probably need a PICC line for TPN We will obtain ultrasound of the left upper extremity We'll continue to follow I have personally seen and examined the patient, performed the documentation and the assessment and plan as written. Number of minutes spent on the visit: [10] I have personally seen and examined the patient and reviewed the documentation. I performed a joint evaluation with the nurse practitioner in this evaluation was done more than 20 minutes. I fully agree with the documentation above and the plan of care. Time with Patient: Less than 30
[2021-05-17] MEDS: FINASTERIDE 5 MG TAB PO SCH (11:24)
[2021-05-17] MEDS: TAMSULOSIN 0.4 MG CAP.ER.24H PO SCH ×2 (11:24→21:03)
--- NOTE | 2021-05-17 11:39 | P.PN ---
Subjective Progress Note Date: 05/17/21 CHIEF COMPLAINT: Small bowel obstruction HISTORY OF PRESENT ILLNESS: Patient is postop day #7 status post exploratory laparotomy, removal of intraperitoneal mesh, lysis of extensive adhesions and small bowel resection for small bowel obstruction, extensive adhesions, intraperitoneal mesh. Patient does complain of abdominal pain. His abdomen appears more distended. He does report flatus no bowel movement. Denies any nausea or vomiting. He remains nothing by mouth. Family at bedside reporting that patient has been hallucinating. Possibly due to IV pain medications. Patient does have some erythema noted along the incision with drainage. Narvaez catheter was removed and patient is having difficulty with urinating. They did straight cath him for 500 mL of urine. Afebrile. WBC 6.3 hemoglobin 12.3 platelets 160 creatinine 0.76 PHYSICAL EXAM: VITAL SIGNS: Reviewed. GENERAL: Intubated. HEENT: Moist buccal mucosa. Head is atraumatic, normocephalic. ABDOMEN: Soft. Distended. Incision site with serosanguineous drainage at the umbilicus. Incision site with erythema at the distal aspect of the incision and middle incision. Patient does have tenderness around the incision. Neurology: Patient alert and orientated with episodes of confusion ASSESSMENT: 1. Status post exploratory laparotomy, removal of intraperitoneal mesh, lysis of extensive adhesions and small bowel resection for small bowel obstruction, extensive adhesions and intraperitoneal mesh 2. A. fib with RVR during surgery PLAN: -Keep patient nothing by mouth -Add Ultram for pain -Resume patient's Flomax and Proscar for urinary retention -Continue to monitor incision site closely -Continue IV fluids -Continue pain medication as needed -Encourage patient to ambulate -Continue GI prophylaxis and DVT prophylaxis Fahad Physician Industrial Psychologist note has been reviewed by physician. Signing provider agrees with the documented findings, assessment, and plan of care. Objective - Vital Signs Vital signs: Vital Signs Temp 98.3 F 05/17/21 08:25 Pulse 98 05/17/21 08:25 Resp 18 05/17/21 08:25 BP 130/81 05/17/21 08:25 Pulse Ox 95 05/17/21 08:25 Intake & Output 05/16/21 05/17/21 05/17/21 18:59 06:59 18:59 Intake Total 730 Output Total 100 520 Balance 630 -520 Weight 97.8 kg Intake: IV 550 Sodium Chloride 0.9% 1, 450 000 ml @ 75 mls/hr IV . [id number] [facility] Rx#:[id number] metroNIDAZOLE-NS PMX 500 100 mg In Saline 1 100ml.bag @ 100 mls/hr IVPB Q8HR [facility] Rx#:[id number] Oral 180 Output: Urine 100 520 Straight 520 Uretheral (Narvaez) 100 Other: # Voids 1 0 ABP, PAP, CO, CI - Last Documented Arterial Blood Pressure 111/51 - Labs CBC & Chem 7: 05/17/21 07:02 05/17/21 07:02 Labs: Abnormal Lab Results - Last 24 Hours (Table) 05/17/21 05/17/21 Range/Units 07:02 07:02 RBC 3.67 L (4.30-5.90) m/uL Hgb 12.3 L (13.0-17.5) gm/dL Hct 37.5 L (39.0-53.0) % MCV 102.1 H (80.0-100.0) fL Lymphocytes # 0.6 L (1.0-4.8) k/uL Chloride 122 H (98-107) mmol/L Carbon Dioxide 21 L (22-30) mmol/L BUN 22 H (9-20) mg/dL Calcium 7.1 L (8.4-10.2) mg/dL Microbiology - Last 24 Hours (Table) 05/10/21 16:26 Blood Culture - Final Blood No Growth after 144 hours
--- NOTE | 2021-05-17 12:30 | US ---
EXAMINATION TYPE: US venous doppler duplex UE LT DATE OF EXAM: 05/17/2021 COMPARISON: NONE CLINICAL HISTORY: swelling. Left arm swelling. SIDE PERFORMED: Left Grayscale, color doppler, spectral doppler imaging performed of the deep veins of the upper extremiti es. Left Arm: Negative for DVT. Edema seen. Subcutaneous edema channels are present. Visualized portions of the left internal jugular vein, subclavian vein, axillary vein, brachial vein show no abnormal luminal echoes, radial and ulnar veins also within normal limits. There are normal v ascular waveforms centrally, color flow. IMPRESSION: No evident deep venous thrombosis. Edema, correlate to exclude cellulitis
--- NOTE | 2021-05-17 13:08 | P.PN ---
Subjective This is a 80 year old male with a past medical history significant for sick sinus syndrome with previous pacemaker implantation, permanent atrial fib rillation, moderate mitral regurgitation, hypothyroidism, and hyperlipidemia. Patient follows in the office with Dr. Triplett. We have been asked to see the patient in consultation for atrial fibrillation. Patient presented to the emergency department with abdominal pain and was found to have small bowel obstruction. Patient is status post exploratory laparotomy, removal of intraperitoneal mesh, lysis of extensive adhesions and small bowel resection for small bowel obstruction, extensive adhesions, intraperitoneal mesh on 05/11/2021. Patient was maintained on IV amiodarone drip and anticoagulation was held due to surgery. 05/17/2021 Patient seen and examined at bedside, no acute distress. He is having abdominal pain this morning. His IV amiodarone has been discontinued as Eliquis has been restarted. He is currently in atrial fibrillation with controlled ventricular rates. He is hemodynamically stable. He's currently maintained on Eliquis 5 mg twice a day, metoprolol tartrate 25 mg twice a day PHYSICAL EXAM: VITAL SIGNS: Reviewed. GENERAL: Well-developed in no acute distress. HEENT: . Neck supple. No JVD LUNGS: Respirations even and unlabored. Lungs essentially clear to auscultation bilaterally. HEART: Irregular rate and rhythm. S1 and S2 heard. ABDOMEN: Soft. EXTREMITIES: Normal range of motion. No clubbing or cyanosis. Peripheral pulses intact. No lower extremity edema NEUROLOGIC: Awake and alert. Oriented x 3. ASSESSMENT: High grade small bowel obstruction Status post exploratory laparotomy, removal of intraperitoneal mesh, lysis of e xtensive adhesions and small bowel resection for small bowel obstruction 05/11/21 Permanent atrial fibrillation, on long-term anticoagulation with Eliquis Sick sinus syndrome with previous pacemaker implantation Valvular heart disease Hyperlipidemia Hypothyroidism PLAN: Continue beta deangelo and anticoagulation with Eliquis Continue cardiac telemetry. Further recommendations pending patient course Nurse practitioner note has been reviewed by physician. Signing provider agrees with the documented findings, assessment, and plan of care. Objective - Vital Signs Vital signs: Vital Signs Temp 98.3 F 05/17/21 08:25 Pulse 82 05/17/21 12:17 Resp 18 05/17/21 12:17 BP 122/80 05/17/21 12:17 Pulse Ox 96 05/17/21 12:17 Intake & Output 05/16/21 05/17/2122 18:59 06:59 18:59 Intake Total 730 Output Total 100 520 Balance 630 -520 Weight 97.8 kg Intake: IV 550 Sodium Chloride 0.9% 1, 450 000 ml @ 75 mls/hr IV . [id number] [facility] Rx#:[id number] metroNIDAZOLE-NS PMX 500 100 mg In Saline 1 100ml.bag @ 100 mls/hr IVPB Q8HR [facility] Rx#:[id number] Oral 180 Output: Urine 100 520 Straight 520 Uretheral (Narvaez) 100 Other: # Voids 1 0 ABP, PAP, CO, CI - Last Documented Arterial Blood Pressure 111/51 - Labs CBC & Chem 7: 05/17/21 07:02 05/17/21 07:02 Labs: Abnormal Lab Results - Last 24 Hours (Table) 05/17/21 05/17/21 Range/Units 07:02 07:02 RBC 3.67 L (4.30-5.90) m/uL Hgb 12.3 L (13.0-17.5) gm/dL Hct 37.5 L (39.0-53.0) % MCV 102.1 H (80.0-100.0) fL Lymphocytes # 0.6 L (1.0-4.8) k/uL Chloride 122 H (98-107) mmol/L Carbon Dioxide 21 L (22-30) mmol/L BUN 22 H (9-20) mg/dL Calcium 7.1 L (8.4-10.2) mg/dL Microbiology - Last 24 Hours (Table) 05/10/21 16:26 Blood Culture - Final Blood No Growth after 144 hours
[2021-05-17] MEDS: DEXTROSE 5% IN WATER 1,000 ML IV SCH (15:46)
[2021-05-17 15:49] LABS: Ionized Calcium 4.7 mg/dL (4.5-5.3)
[2021-05-17 15:55] LABS: INR 1.3 (<1.2); Prothrombin Time 13.2 sec (9.0-12.0)
[2021-05-17 15:58] LABS: Albumin 2.1 g/dL (3.5-5.0); Phosphorus 2.5 mg/dL (2.5-4.5)
[2021-05-17] MEDS: traMADol 50 MG TAB PO PRN (18:18)
[2021-05-17] MEDS: MELATONIN 5 MG TABLET PO PRN (21:03)
--- NOTE | 2021-05-17 23:26 | P.PN ---
Subjective Progress Note Date: 05/17/21 This is a pleasant 80-year-old male who was recently admitted with abdominal pain and discomfort with constipation and patient also found to be dehydrated and being closely monitored. Patient underwent CT abdomen and pelvis which showed marked dilation of several small bowel loops including the stomach with an abrupt caliber change within the mid abdomen. Centrally to the left with a normal filling distal loops and findings are felt to be highly suspicious for high-grade small bowel obstruction with internal hernia or adhesions not entirely excluded. Appendix appeared normal. Patient to continue with NG tube and nothing by mouth at this time. Cardiology consulted for surgical clearance which is currently pending. Patient denies any chest pain or shortness of breath. Patient is afebrile. Patient also continued on IV Protonix along with Flagyl an appropriate home medications have been resumed. 05/12/2021 Patient is seen and evaluated in follow-up continues to be closely monitored wi th multiple medical consultations following. Patient is status post exploratory laparotomy and underwent removal of intraperitoneal mesh, extensive lysis of adhesions, small bowel resection and is being closely monitored. Patient is in the ICU and is recently intubated and currently being weaned off sedation for possible extubation. Patient was also noted to have A. fib with RVR during surgery and cardiology is following. Patient with indwelling Lange catheter and noted hematuria and urology has been consulted. Urine culture finalized showing apparent skin and/or genital andreas. Patient is maintained on IV antibiotics in the form of Flagyl and will continue. On exam patient is awake and following the commands appropriately but somewhat confused per nursing staff. Chest x-ray this morning shows left upper chest wall dual-lead pacemaker with persistent elevation of the right hemidiaphragm and small bilateral pleural effusions unchanged. 05/15/2021 Patient is seen and evaluated in follow-up this morning with at the bedside currently sitting up in the chair. NG tube is being removed and patient is being started on low-sodium clear liquid diet per surgery recommendations. Multiple medical consultations following and patient is status post exploratory laparotomy. Patient continues on IV antibiotics in the form of Flagyl. Patient being transitioned to oral anticoagulant along with oral Lopressor and patient is off IV amiodarone. Incentive spirometer at the bedside and encourage the patient to continue using at least 10 times every hour while awake. Urology has evaluated the patient recommending trial voiding tomorrow and monitoring for any retention and/or further hematuria. PT/OT following. Patient reports to passing gas although no reports bowel movements as of yet. Patient denies chest pain, shortness of breath, or palpitations. Patient is afebrile. White blood count currently normalized at 10.5. 05/16/2021 Patient is seen in follow up today and reports to feeling some mild abdominal pain and passing minimal gas with no bowel movement. General surgery following and continues on clear liquids. Patient had lange catheter removed today and is due to void. Urology following for hematuria. Reports to less blood noted although continues to be present. Patient is on IV flagyl and surgical site noted to have some drainage. Patient reports to abdominal pain but denies nausea or vomiting. Patient denies chest pain or shortness of breath. Patient is afebrile. PT/OT working with the patient and patient is weak. 05/17/2021 Patient is seen today and family at the bedside. Per nursing staff patient continues with urinary retention. Urology following. Patient had lange removed yesterday. Patient also more distended today and very minimal bowel sounds noted. Patient denies bowel movement. Patient is more confused as well today. Patient with left upper extremity swelling and doppler ordered. Patient to continue NPO at this time per surgery recommendations. Patient denies chest pain or shortness of breath. Patient is afebrile. Patient continues to be extremely weak and PT/OT following. Sodium is 145 today and will switch to D5 in Water. All medications have been reviewed Active Medications Albuterol/Ipratropium (Ipratropium-Albuterol 3 Ml Neb) 3 ml INHALATION RT-TID PRN PRN Reason: Shortness Of Breath Or Wheezing Last Admin: 05/16/21 05:55 Dose: 3 ml Documented by: Apixaban (Apixaban 5 Mg Tab) 5 mg PO BID [facility]; Protocol Last Admin: 05/17/21 21:03 Dose: 5 mg Documented by: Finasteride (Finasteride 5 Mg Tab) 5 mg PO DAILY [facility] Last Admin: 05/17/21 11:24 Dose: 5 mg Documented by: Hydromorphone HCl (Hydromorphone 0.5 Mg/0.5 Ml Syringe) 0.5 mg IVP Q3HR PRN PRN Reason: Moderate Pain Last Admin: 05/17/21 03:33 Dose: 0.5 mg Documented by: Dextrose/Water (Dextrose 5%-Water Iv Soln) 1,000 mls @ 75 mls/hr IV .[id number] [facility] Last Admin: 05/17/21 15:46 Dose: 75 mls/hr Documented by: Levothyroxine Sodium (Levothyroxine 50 Mcg Tab) 50 mcg PO DAILY@0630 [facility] Last Admin: 05/17/21 06:57 Dose: 50 mcg Documented by: Melatonin (Melatonin 5 Mg Tablet) 5 mg PO HS PRN PRN Reason: Insomnia Last Admin: 05/17/21 21:03 Dose: 5 mg Documented by: Metoprolol Tartrate (Metoprolol Tartrate 25 Mg Tab) 25 mg PO BID [facility] Last Admin: 05/17/21 21:03 Dose: 25 mg Documented by: Pantoprazole Sodium (Pantoprazole 40 Mg Tablet) 40 mg PO AC-BRKFST [facility] Last Admin: 05/17/21 06:57 Dose: 40 mg Documented by: Tamsulosin HCl (Tamsulosin 0.4 Mg Cap.Er.24h) 0.4 mg PO BID [facility] Last Admin: 05/17/21 21:03 Dose: 0.4 mg Documented by: Tramadol HCl (Tramadol 50 Mg Tab) 50 mg PO QID PRN PRN Reason: Pain Last Admin: 05/17/21 18:18 Dose: 50 mg Documented by: PHYSICAL EXAMINATION: GENERAL: The patient is awake, alert and oriented 1-2, periods of confusion, rambling. Well developed, well nourished. HEENT: Pupils are round and equally reacting to light. EOMI. no scleral icterus. No conjunctival pallor. Normocephalic, atraumatic. No pharyngeal erythema. No thyromegaly. CARDIOVASCULAR: S1 and S2 muffled PULMONARY: diminished breath sounds bilaterally with no wheezing or rhonchi noted. ABDOMEN: soft. Tender. distended, sluggish bowel sounds. surgical dressing with some mild drainage noted. No palpable organomegaly. MUSCULOSKELETAL: No joint swelling or deformity. EXTREMITIES: No cyanosis, clubbing, or pedal edema. NEUROLOGICAL: Gross neurological examination did not reveal any focal deficits. diffusely weak SKIN: No rashes. Assessment: High-grade small bowel obstruction Status post exploratory laparotomy with removal of intraperitoneal mesh, lysis of extensive lesions and small bowel resection Atrial fibrillation with RVR during surgery, currently sinus rhythm Hematuria status post indwelling Lange catheter insertion Urinary retention Dehydration with acute renal failure, improving Elevated white blood count Paroxysmal atrial fibrillation History of sick sinus syndrome with pacemaker implantation Valvular heart disease Hyperlipidemia History of hypothyroidism Chronic obstructive pulmonary disease, not an exacerbation GI prophylaxis DVT prophylaxis Full code Plan: Recommend to continue with current medications and symptomatic management. Patient is currently sitting up in chair with at the bedside. Patient reports to passing gas and denies bowel movements. Patient is NPO and having some worsening abdominal distention and dietitian being consulted for initiating TPN. Needs PICC line. patient with left upper extremity swelling noted and venous doppler was done and is negative for DVT. Patient having some urinary retention and will reorder home meds and also intermittent straight cath with bladder scans. Anticoagulant resumed. Incentive spirometer at the bedside and encouraged the patient continue using at least 10 times every hour while awake and also increased activity as tolerated. Physical therapy following the patient. Plan per patient is to go home once discharged. Discussed with and patient about possible ECF and patient is extremely weak and will be difficult to safely manage at home. suggested [facility] although still thinking about discharge planning. Will follow up. Will repeat a.m. labs. Due to multiple complex medical issues, prognosis is guarded. The impression and plan of care has been dictated by Renu Cantu, nurse practitioner as directed. MD Erica I have performed a history and examination and MDM of this patient, discussed the same with the dictator, and agree with the dictator's assessment and plan as written ,documented as a scribe. Based on total visit time, I have performed more than 50% of the visit. Objective - Vital Signs Vital signs: Vital Signs Temp 98.3 F 05/17/21 08:25 Pulse 98 05/17/21 08:25 Resp 18 05/17/21 08:25 BP 130/81 05/17/21 08:25 Pulse Ox 95 05/17/21 08:25 Intake & Output 05/16/21 05/17/21 05/17/21 18:59 06:59 18:59 Intake Total 730 Output Total 100 520 Balance 630 -520 Intake: IV 550 Sodium Chloride 0.9% 1, 450 000 ml @ 75 mls/hr IV . [id number] [facility] Rx#:[id number] metroNIDAZOLE-NS PMX 500 100 mg In Saline 1 100ml.bag @ 100 mls/hr IVPB Q8HR [facility] Rx#:[id number] Oral 180 Output: Urine 100 520 Straight 520 Uretheral (Lange) 100 Other: # Voids 1 0 ABP, PAP, CO, CI - Last Documented Arterial Blood Pressure 111/51 - Labs CBC & Chem 7: 05/17/21 07:02 05/17/21 07:02 Labs: Abnormal Lab Results - Last 24 Hours (Table) 05/17/21 05/17/21 Range/Units 07:02 07:02 RBC 3.67 L (4.30-5.90) m/uL Hgb 12.3 L (13.0-17.5) gm/dL Hct 37.5 L (39.0-53.0) % MCV 102.1 H (80.0-100.0) fL Lymphocytes # 0.6 L (1.0-4.8) k/uL Chloride 122 H (98-107) mmol/L Carbon Dioxide 21 L (22-30) mmol/L BUN 22 H (9-20) mg/dL Calcium 7.1 L (8.4-10.2) mg/dL Microbiology - Last 24 Hours (Table) 05/10/21 16:26 Blood Culture - Final Blood No Growth after 144 hours
[2021-05-18] MEDS: traMADol 50 MG TAB PO PRN ×3 (04:22→17:22)
[2021-05-18] MEDS: DEXTROSE 5% IN WATER 1,000 ML IV SCH ×2 (04:23→15:23)
[2021-05-18] MEDS: PANTOPRAZOLE 40 MG TABLET PO SCH (06:53)
[2021-05-18] MEDS: LEVOTHYROXINE 50 MCG TAB PO SCH (06:53)
[2021-05-18 07:46] LABS: INR 1.1 (<1.2); Prothrombin Time 12.2 sec (9.0-12.0)
[2021-05-18 07:52] LABS: African American GFR (CKD) >90 (>60 ml/min/1.73 sqM); Anion Gap 1 mmol/L; Blood Urea Nitrogen 21 mg/dL (9-20); Calcium 7.1 mg/dL (8.4-10.2); Carbon Dioxide 24 mmol/L (22-30); Chloride 118 mmol/L (98-107); Glucose 118 mg/dL (74-99); Magnesium 1.9 mg/dL (1.6-2.3); Non-African American GFR(CKD) >90 (>60 ml/min/1.73 sqM); Phosphorus 2.6 mg/dL (2.5-4.5); Potassium 3.4 mmol/L (3.5-5.1); Sodium 143 mmol/L (137-145)
[2021-05-18] MEDS ORDERED: Potassium Replacement Protocol 1 EACH MISC MISCELLANE PRN (09:01)
[2021-05-18] MEDS ORDERED: LIDOCAINE 1% INJ 10MG/ML (20 ML MDV) ONE (10:35)
[2021-05-18] MEDS: METOPROLOL TARTRATE 25 MG TAB PO SCH ×2 (10:36→19:55)
[2021-05-18] MEDS: APIXABAN 5 MG TAB PO SCH ×3 (10:36→19:54)
[2021-05-18] MEDS: TAMSULOSIN 0.4 MG CAP.ER.24H PO SCH ×2 (10:36→19:54)
[2021-05-18] MEDS: FINASTERIDE 5 MG TAB PO SCH (10:37)
[2021-05-18] MEDS ORDERED: LIDOCAINE 1% INJ 10MG/ML (20 ML MDV) SQ ONE (11:09)
--- NOTE | 2021-05-18 12:45 | IR ---
EXAMINATION TYPE: IR cvc insert >=5 years DATE OF EXAM: 05/18/2021 COMPARISON: NONE CLINICAL HISTORY: Small bowel obstruction Needs long-term intravenous access for therapy. PROCEDURE: Hand hygiene obtained with soap and water and alcohol-based hand rub. After informed consent, the skin overlying the right basilic vein was localized with ultrasound and n oted to be compressible and patent. An ultrasound image was obtained and submitted on the patient's chart. The overlying skin was prepped and draped and Lidocaine was used for local anesthesia. A ski n missy was made with a scalpel. Access was gained to the vein under ultrasound guidance with a 21 ga uge needle and a 0.018 inch wire was advanced. Access site was dilated with Peel-Away sheath and cat heter tailored to the appropriate length and advanced such that the distal tip is at the cavoatrial j unction. Spot image was obtained verifying placement. Catheter was fixed to the skin and a sterile dressing was placed following hemostasis. Catheter was aspirated and flushed with saline. Patient w as discharged in stable condition without complication.Maximal barrier technique is utilized. Ultras ound image is documented on the chart. Ultrasound used with sterile technique. Fluoro time and fluoroscopic images submitted to document procedure: 107 intraoperative C-arm images, 0.3 minutes fluoroscopy time supplied IMPRESSION: STATUS POST ULTRASOUND AND FLUOROSCOPIC GUIDED PICC LINE PLACEMENT, READY FOR USE. THIS PROCEDURE WAS PERFORMED BY THE UNDERSIGNED.
--- NOTE | 2021-05-18 12:50 | P.PN ---
Subjective Progress Note Date: 05/18/21 Principal diagnosis: Abdominal pain 80-year-old white male patient with past medical history of smoking, stage II COPD, baseline FEV1 80% of predicted, obstructive sleep apnea on APAP therapy, benign prostatic hyperplasia, previous history of intestinal obstruction with bowel resection surgery, history of a permanent pacemaker insertion, chronic kidney disease, chronic paralysis of hemidiaphragm, atrial fibrillation on Eliquis, BPH, chronic back pain, former smoker. Patient came in on 05/10/2021 with complaints of abdominal pain and vomiting. CT of the abdomen and pelvis in the ER showing marked dilation of the proximal small bowel loops and stomach highly suggestive of high-grade small bowel obstruction, 8mm posterior bladder calculus, cardiomegaly with small pericardial effusion and basilar atelectasis, prostate hypertrophy. White blood cell count is 22.1, hemoglobin is 19.8, platelet count was 205, sodium is 131, potassium is 5.1, chloride 97, CO2 is 24, BUN is 58, creatinine is 1.34, LFTs are within normal limits, amylase was 106, lipase was 107, urinalysis was negative for signs of infection. Surgical services have been consulted, NG tube has been inserted, patient remains nothing by mouth, he is scheduled for exploratory laparotomy on 05/11/[address] Collado, patient is getting IV hydration, alk phos is on hold. Denies any difficulty breathing, chest x-ray showing chronic changes without evidence for acute pulmonary disease. On 05/12/2021 patient seen in follow-up in the intensive care unit, yesterday patient had exploratory laparotomy with removal of intraperitoneal mesh, lysis of extensive adhesions, and small bowel resection. Patient returned to the intensive care unit intubated and sedated. Currently remains on assist-control ventilation with a rate of 16, tidal volume 500, FiO2 of 50% and PEEP of 5. This morning's blood gas shows pO2 of 127, pCO2 of 32, and pH of 7.36 this was on 50% FiO2. Chest x-ray shows ET tube 5.5 cm above the rona, NG tube in appropriate position, with the tip below the diaphragm, and right central venous line with the tip within the right atrium. Persistent elevation of the right hemidiaphragm, small bilateral pleural effusions. Patient is currently on 0.9 normal saline at a rate of 75 ML per hour, amiodarone at 0.5 g/m, vasopressin is at 0.03 units per minute, and improving his at 3 mics per kilo per minute. Yesterday in the postoperative period patient went into A. fib with RVR, patient does have history of chronic A. fib, however she was loaded with amiodarone and started on amiodarone drip per protocol, currently heart rate is better controlled. Received 2 L in IV fluid boluses, and maintenance IV fluids infusing at 75 ML per hour, abiotic's in the form of Flagyl. Today's labs have been reviewed, white blood cell count is 7.4, hemoglobin is 14.9, platelet count is 136, sodium is 134, potassium is 4.3, chloride is 112, CO2 17, BUN is 33, creatinine is 1.01. Surgical incisions are clean dry and intact, abdomen is soft but tender to touch. NG tube remains in place, patient is nothing by mouth, no tube feedings or TPN yet. Will await further recommendations from surgery in regards to the timing of nutrition initiation. On 05/15/2021, I'm seeing the patient for a follow-up. The patient is postop day #4. The patient underwent laparotomy, removal of a intraperitoneal mesh and lysis of adhesions and small bowel resection for small bowel obstruction. The p atient also has extensive adhesions and intraperitoneal mesh removal. The patient's surgical with that and recommended that although there is some serosanguineous material was weaned from the wound surface. The patient is going to require wound change and dressing change. The patient remains in a trial fibrillation. The patient is doing well. He is using incentive spirometer. He is afebrile. NG tube was removed today by surgery and the patient will be started on clear liquid diet. His pain is under adequate control. The patient remains on subcutaneous heparin for DVT prophylaxis. He i s slightly tachycardic and today's evaluation the patient remains in atrial fibrillation. The white cell count of 10.5 with hemoglobin of 12 and a platelet count of 145. BUN is at 21 with a creatinine of 0.9 and sodium level is at 141. On 05/16/2021 patient seen in follow-up on selective care unit, today is postoperative day number 5, status post laparotomy, removal of intraperitoneal mesh and lysis of adhesions and small bowel resection for small bowel obstruction. Patient is awake and alert, he is oriented 3, he is currently on room air, with a pulse ox of 94%, breathing comfortably, denies any dyspnea unless he is ambulating, and generally patient is weak, he is requiring the use of a walker and one person assist. Lung sounds are negative for any wheezing, denies any cough or phlegm production, he is working on his incentive spirometer quite diligently, and he is receiving 1.25 liters on the today. X-ray on 05/13/2021 shows small bilateral pleural effusions. Patient is tolerating clear liquid diet. And has not had any bowel movements, however he is passing flatus. Hemodynamically has remained stable, remains in atrial fibrillation which is chronic for him but the rate is controlled, his Ahlquist has been resumed with surgical clearanc Cardiology is following. His had no acute events overnight. he was experiencing some hematuria and retention, and urology consultation has been obtained, urine has cleared up, and Narvaez catheter has been removed this morning. On 05/17/2021 patient seen in follow-up on selective care unit, he denies any worsening shortness of breath, he remains on room air, his pulse ox is 95-96%, hemodynamically stable, no cough, no congestion, lung sounds are clear to auscultation, he is working on incentive spirometer quite diligently, he is achieving 1.5 L on the today. Patient's today is postoperative day #6 status post exploratory laparotomy, with extensive lysis of adhesions, intraperitoneal mesh removal and small bowel resection. Surgical services are following, and there is increased abdominal distention, patient has not had a bowel movement but he has been passing flatus. He has been also experiencing some urinary retention, Narvaez is currently discontinued. At this point he is again nothing by mouth. Yesterday he was on clear liquid diet. He denies any nausea or vomiting. Today's labs have been reviewed, white blood cell count is 6.3, hemoglobin is 12.3, platelet count is 160, sodium is 145, potassium 3.6, chl oride is 122, chloride is 21, BUN is 22 creatinine 0.76. He remains in atrial fibrillation, his Elliquis has been restarted with surgical clearance. His rate is controlled. On 05/18/2021 patient seen in follow-up on selective care unit, patient is awake and alert, in no acute distress, he just returned from insertion of a PICC line, and the plan is to start TPN infusion. Patient had been nothing by mouth, he is passing gas, but has not had a bowel movement. His abdomen is slightly distended, but no more distended than it was yesterday. Patient denies any abdominal pain. Tory are clean dry and intact, small amount of serous drainage from the incisions. Afebrile. Vital signs have been stable, room air pulse ox is 93%, lung sounds are clear. Narvaez catheter is in place. Patient h as been resumed on his Eliquis. Vital signs are stable, heart rate is controlled. Blood cultures and urine cultures are negative. Continues on nebulized bronchodilators. Objective - Vital Signs Vital signs: Vital Signs Temp 98.6 F 05/18/21 08:00 Pulse 97 05/18/21 08:00 Resp 17 05/18/21 08:00 BP 113/76 05/18/21 08:00 Pulse Ox 93 L 05/18/21 08:00 Intake & Output 05/17/21 05/18/21 05/18/21 18:59 06:59 18:59 Intake Total 625 Output Total 700 600 350 Balance -75 -600 -350 Weight 97.8 kg Intake: IV 625 Sodium Chloride 0.9% 1, 525 000 ml @ 75 mls/hr IV . [id number] [facility] Rx#:[id number] metroNIDAZOLE-NS PMX 500 100 mg In Saline 1 100ml.bag @ 100 mls/hr IVPB Q8HR [facility] Rx#:[id number] Output: Urine 700 600 350 Straight 500 Other: Voiding Method Indwelling Catheter Indwelling Catheter ABP, PAP, CO, CI - Last Documented Arterial Blood Pressure 111/51 - Exam GENERAL EXAM: Awake and alert, 80-year-old white male, on room air, with a pulse ox of 93-94% Comfortable in no apparent distress. HEAD: Normocephalic/atraumatic. EYES: Normal reaction of pupils, equal size. Conjunctiva pink, sclera white. NOSE: Clear with pink turbinates. THROAT: No erythema or exudates. NECK: No masses, no JVD, no thyroid enlargement, no adenopathy. CHEST: No chest wall deformity. Symmetrical expansion. LUNGS: Equal air entry with no crackles, wheeze, rhonchi or dullness. CVS: Irregular rate and rhythm, normal S1 and S2, no gallops, no murmurs, no rubs ABDOMEN: Soft, mild postsurgical tenderness. abdominal incision is clean dry and intact with some mild serosanguineous drainage, tory are intact, abdominal incision is covered with a surgical dressing No hepatosplenomegaly, normal bowel sounds, no guarding or rigidity. Abdominal incision is clean dry and intact, abdomen is soft, but tender to touch, abdominal binder is in place EXTREMITIES: No clubbing, no edema, no cyanosis, 2+ pulses and upper and lower extremities. MUSCULOSKELETAL: Muscle strength and tone normal. SPINE: No scoliosis or deformity SKIN: No rashes CENTRAL NERVOUS SYSTEM: Awake and alert. No focal deficits, tone is normal in all 4 extremities. - Labs CBC & Chem 7: 05/17/21 07:02 05/18/21 06:29 Labs: Abnormal Lab Results - Last 24 Hours (Table) 05/17/21 05/17/21 05/18/21 Range/Units 15:18 15:30 06:29 PT 13.2 H (9.0-12.0) sec INR 1.3 H (<1.2) Potassium 3.4 L (3.5-5.1) mmol/L Chloride 118 H (98-107) mmol/L BUN 21 H (9-20) mg/dL Glucose 118 H (74-99) mg/dL Calcium 7.1 L (8.4-10.2) mg/dL Albumin 2.1 L (3.5-5.0) g/dL 05/18/21 Range/Units 06:29 PT 12.2 H (9.0-12.0) sec INR (<1.2) Potassium (3.5-5.1) mmol/L Chloride (98-107) mmol/L BUN (9-20) mg/dL Glucose (74-99) mg/dL Calcium (8.4-10.2) mg/dL Albumin (3.5-5.0) g/dL Assessment and Plan Plan: Assessment: #1. High-grade small bowel obstruction, status post exploratory laparotomy on 05/11/2021, with extensive lysis of adhesions, intraperitoneal mesh removal, and small bowel resection #2. Routine postoperative ventilator management, safely weaned and extubated, currently tolerating extubation quite well so far #3. A. fib with RVR in the postoperative period, had been started on amiodarone drip, currently better controlled, and amiodarone drip has been discontinued. Eliquis was has been restarted #4. Hematuria, resolved, urology is following, Narvaez has been discontinued #5. Previous history of bowel resection #6. History of chronic atrial fibrillation, on Eliquis athome #7. History of sick sinus syndrome with history of pacemaker implantation #8 Hyperlipidemia #9. Hypothyroidism #10. Valvular heart disease #11. Mild COPD with baseline FEV1 of 80%, stable #12. Left upper extremity swelling, left upper extremity Doppler was negative for DVT Plan: Vital signs have been stable, patient remains on room air, Continue nebulized bronchodilators encourage deep breathing and coughing Patient was restarted on oral anticoagulation His heart rate is controlled Patient is passing flatus, has not had a bowel movement. PICC line has been inserted patient is being started on TPN He will also start on clear liquid diet We'll continue to follow I have personally seen and examined the patient and reviewed the documentation. I performed a joint evaluation with the nurse practitioner in this evaluation was done more than 20 minutes. I fully agree with the documentation above and the plan of care.. The patient is stable. He is passing flatus. He'll be allowed to take some clear liquid diet today. Overall respiratory status is stable. Anticoagulation was restarted. We'll continue to follow. Time with Patient: Less than 30
[2021-05-18] MEDS: POTASSIUM CHLORIDE 10 MEQ in WATER FOR INJECTION 1 100ML.BAG IVPB SCH ×4 (12:56→18:21)
[2021-05-18] MEDS ORDERED: MVI, ADULT NO.4 WITH VIT K 10 ML, TRACE (CONC-1ML/DOSE) 1 ML, SODIUM PHOSPHATE 15 MMOL,... IV ONE ×7 (13:00)
--- NOTE | 2021-05-18 13:02 | XR ---
EXAMINATION TYPE: XR chest 1V DATE OF EXAM: 05/18/2021 CLINICAL HISTORY: Difficulty breathing progress study. TECHNIQUE: Single AP portable upright view of the chest is obtained. COMPARISON: Chest x-ray from 5 days earlier and older studies. FINDINGS: New Right sided PICC line terminates in SVC. Interval level of right internal jugular cent ral venous catheter. Interval removal of catheter along the esophagus. Persistent mild cardiomegaly w ith dual lead pacemaker. Persistent elevated right hemidiaphragm. Persistent left basilar opacity. Up per lungs remain clear without pneumothorax. Multilevel spurring in the spine redemonstrated. Low robyn g volumes redemonstrated. IMPRESSION: Low lung volumes with small to tiny left pleural effusion and associated left basilar ate lectasis and/or scarring. No significant change from most recent chest x-ray.
--- NOTE | 2021-05-18 13:47 | P.PN ---
Subjective This is a 80 year old male with a past medical history significant for sick sinus syndrome with previous pacemaker implantation, permanent atrial fib rillation, moderate mitral regurgitation, hypothyroidism, and hyperlipidemia. Patient follows in the office with Dr. Triplett. We have been asked to see the patient in consultation for atrial fibrillation. Patient presented to the emergency department with abdominal pain and was found to have small bowel obstruction. Patient is status post exploratory laparotomy, removal of intraperitoneal mesh, lysis of extensive adhesions and small bowel resection for small bowel obstruction, extensive adhesions, intraperitoneal mesh on 05/11/2021. Patient was maintained on IV amiodarone drip and anticoagulation was held due to surgery. 05/18/2021 Patient seen and examined at bedside, no acute distress. His abdomen continues to be distended. He is started on Clear liquid diet. Plan for PICC placement today with TPN initiation. He is currently in atrial fibrillation with control led ventricular rates. He is hemodynamically stable. He's currently maintained on Eliquis 5 mg twice a day, metoprolol tartrate 25 mg twice a day PHYSICAL EXAM: VITAL SIGNS: Reviewed. GENERAL: Well-developed in no acute distress. HEENT: . Neck supple. No JVD LUNGS: Respirations even and unlabored. Lungs essentially clear to auscultation bilaterally. HEART: Irregular rate and rhythm. S1 and S2 heard. ABDOMEN: Soft. EXTREMITIES: Normal range of motion. No clubbing or cyanosis. Peripheral p ulses intact. No lower extremity edema NEUROLOGIC: Awake and alert. Oriented x 3. ASSESSMENT: High grade small bowel obstruction Status post exploratory laparotomy, removal of intraperitoneal mesh, lysis of extensive adhesions and small bowel resection for small bowel obstruction 05/11/21 Permanent atrial fibrillation, on long-term anticoagulation with Eliquis Sick sinus syndrome with previous pacemaker implantation Valvular heart disease Hyperlipidemia Hypothyroidism Hypokalemia PLAN: Continue beta deangelo and anticoagulation with Eliquis Continue cardiac telemetry. Replace potassium per protocol Further recommendations pending patient course Nurse practitioner note has been reviewed by physician. Signing provider agrees with the documented findings, assessment, and plan of care. Objective - Vital Signs Vital signs: Vital Signs Temp 98.9 F 05/18/21 12:55 Pulse 76 05/18/21 12:55 Resp 16 05/18/21 12:55 BP 102/67 05/18/21 12:55 Pulse Ox 97 05/18/21 12:55 Intake & Output 05/17/21 05/18/21 05/18/21 18:59 06:59 18:59 Intake Total 625 Output Total 700 600 700 Balance -75 -600 -700 Weight 97.8 kg Intake: IV 625 Sodium Chloride 0.9% 1, 525 000 ml @ 75 mls/hr IV . [id number] [facility] Rx#:[id number] metroNIDAZOLE-NS PMX 500 100 mg In Saline 1 100ml.bag @ 100 mls/hr IVPB Q8HR [facility] Rx#:[id number] Output: Urine 700 600 700 Straight 500 Other: Voiding Method Indwelling Catheter Indwelling Catheter ABP, PAP, CO, CI - Last Documented Arterial Blood Pressure 111/51 - Labs CBC & Chem 7: 05/17/21 07:02 05/18/21 06:29 Labs: Abnormal Lab Results - Last 24 Hours (Table) 05/17/21 05/17/21 05/18/21 Range/Units 15:18 15:30 06:29 PT 13.2 H (9.0-12.0) sec INR 1.3 H (<1.2) Potassium 3.4 L (3.5-5.1) mmol/L Chloride 118 H (98-107) mmol/L BUN 21 H (9-20) mg/dL Glucose 118 H (74-99) mg/dL Calcium 7.1 L (8.4-10.2) mg/dL Albumin 2.1 L (3.5-5.0) g/dL 05/18/21 Range/Units 06:29 PT 12.2 H (9.0-12.0) sec INR (<1.2) Potassium (3.5-5.1) mmol/L Chloride (98-107) mmol/L BUN (9-20) mg/dL Glucose (74-99) mg/dL Calcium (8.4-10.2) mg/dL Albumin (3.5-5.0) g/dL
--- NOTE | 2021-05-18 14:42 | P.PN ---
Subjective Progress Note Date: 05/18/21 CHIEF COMPLAINT: Small bowel obstruction HISTORY OF PRESENT ILLNESS: Patient is postop day #8 status post exploratory laparotomy, removal of intraperitoneal mesh, lysis of extensive adhesions and small bowel resection for small bowel obstruction, extensive adhesions, intraperitoneal mesh. Patient does complain of abdominal pain. He does report that his abdominal pain is improving. He has received his PICC line and is scheduled to start TPN. Patient does report increase in the amount of flatus. He appears slightly less distended. Still having some drainage serosanguineous drainage from the incision site. He denies any nausea or vomiting. Afebrile. WBC esterase 6.3 sodium 143 potassium 3.4 creatinine 0.71 magnesium 1.9 patient did have Narvaez catheter reinserted Patient seen and examined with Dr. thornton PHYSICAL EXAM: VITAL SIGNS: Reviewed. GENERAL: Intubated. HEENT: Moist buccal mucosa. Head is atraumatic, normocephalic. ABDOMEN: Soft. Distended but slight decrease in abdominal distention compared to yesterday. Patient does have serosanguineous drainage noted at the umbilicus and some erythema at the distal aspect of the incision. Tenderness to palpation of the incision Neurology: Patient alert and orientated with episodes of confusion ASSESSMENT: 1. Status post exploratory laparotomy, removal of intraperitoneal mesh, lysis of extensive adhesions and small bowel resection for small bowel obstruction, extensive adhesions and intraperitoneal mesh 2. A. fib with RVR during surgery PLAN: -Start clear liquid diet -3 tory removed from the incision at the umbilicus and 2 at the distal portion of the decision small amount of serous [place] was drainage expressed -Start TPN for nutrition support -Continue IV fluids -Continue pain medication as needed -Encourage patient to ambulate -Continue GI prophylaxis and DVT prophylaxis [place] Physician Fiber Artist note has been reviewed by physician. Signing provider agrees with the documented findings, assessment, and plan of care. Objective - Vital Signs Vital signs: Vital Signs Temp 98.9 F 05/18/21 12:55 Pulse 76 05/18/21 12:55 Resp 16 05/18/21 12:55 BP 102/67 05/18/21 12:55 Pulse Ox 97 05/18/21 12:55 Intake & Output 05/17/21 05/18/21 05/18/21 18:59 06:59 18:59 Intake Total 625 Output Total 700 600 700 Balance -75 -600 -700 Weight 97.8 kg Intake: IV 625 Sodium Chloride 0.9% 1, 525 000 ml @ 75 mls/hr IV . [id number] [facility] Rx#:[id number] metroNIDAZOLE-NS PMX 500 100 mg In Saline 1 100ml.bag @ 100 mls/hr IVPB Q8HR [facility] Rx#:[id number] Output: Urine 700 600 700 Straight 500 Other: Voiding Method Indwelling Catheter Indwelling Catheter ABP, PAP, CO, CI - Last Documented Arterial Blood Pressure 111/51 - Labs CBC & Chem 7: 05/17/21 07:02 05/18/21 06:29 Labs: Abnormal Lab Results - Last 24 Hours (Table) 05/17/21 05/17/21 05/18/21 Range/Units 15:18 15:30 06:29 PT 13.2 H (9.0-12.0) sec INR 1.3 H (<1.2) Potassium 3.4 L (3.5-5.1) mmol/L Chloride 118 H (98-107) mmol/L BUN 21 H (9-20) mg/dL Glucose 118 H (74-99) mg/dL Calcium 7.1 L (8.4-10.2) mg/dL Albumin 2.1 L (3.5-5.0) g/dL 05/18/21 Range/Units 06:29 PT 12.2 H (9.0-12.0) sec INR (<1.2) Potassium (3.5-5.1) mmol/L Chloride (98-107) mmol/L BUN (9-20) mg/dL Glucose (74-99) mg/dL Calcium (8.4-10.2) mg/dL Albumin (3.5-5.0) g/dL
--- NOTE | 2021-05-18 15:32 | P.PN ---
Subjective Progress Note Date: 05/18/21 This is a pleasant 80-year-old male who was recently admitted with abdominal pain and discomfort with constipation and patient also found to be dehydrated and being closely monitored. Patient underwent CT abdomen and pelvis which showed marked dilation of several small bowel loops including the stomach with an abrupt caliber change within the mid abdomen. Centrally to the left with a normal filling distal loops and findings are felt to be highly suspicious for high-grade small bowel obstruction with internal hernia or adhesions not entirely excluded. Appendix appeared normal. Patient to continue with NG tube and nothing by mouth at this time. Cardiology consulted for surgical clearance which is currently pending. Patient denies any chest pain or shortness of breath. Patient is afebrile. Patient also continued on IV Protonix along with Flagyl an appropriate home medications have been resumed. 05/12/2021 Patient is seen and evaluated in follow-up continues to be closely monitored wi th multiple medical consultations following. Patient is status post exploratory laparotomy and underwent removal of intraperitoneal mesh, extensive lysis of adhesions, small bowel resection and is being closely monitored. Patient is in the ICU and is recently intubated and currently being weaned off sedation for possible extubation. Patient was also noted to have A. fib with RVR during surgery and cardiology is following. Patient with indwelling Lange catheter and noted hematuria and urology has been consulted. Urine culture finalized showing apparent skin and/or genital andreas. Patient is maintained on IV antibiotics in the form of Flagyl and will continue. On exam patient is awake and following the commands appropriately but somewhat confused per nursing staff. Chest x-ray this morning shows left upper chest wall dual-lead pacemaker with persistent elevation of the right hemidiaphragm and small bilateral pleural effusions unchanged. 05/15/2021 Patient is seen and evaluated in follow-up this morning with at the bedside currently sitting up in the chair. NG tube is being removed and patient is being started on low-sodium clear liquid diet per surgery recommendations. Multiple medical consultations following and patient is status post exploratory laparotomy. Patient continues on IV antibiotics in the form of Flagyl. Patient being transitioned to oral anticoagulant along with oral Lopressor and patient is off IV amiodarone. Incentive spirometer at the bedside and encourage the patient to continue using at least 10 times every hour while awake. Urology has evaluated the patient recommending trial voiding tomorrow and monitoring for any retention and/or further hematuria. PT/OT following. Patient reports to passing gas although no reports bowel movements as of yet. Patient denies chest pain, shortness of breath, or palpitations. Patient is afebrile. White blood count currently normalized at 10.5. 05/16/2021 Patient is seen in follow up today and reports to feeling some mild abdominal pain and passing minimal gas with no bowel movement. General surgery following and continues on clear liquids. Patient had lange catheter removed today and is due to void. Urology following for hematuria. Reports to less blood noted although continues to be present. Patient is on IV flagyl and surgical site noted to have some drainage. Patient reports to abdominal pain but denies nausea or vomiting. Patient denies chest pain or shortness of breath. Patient is afebrile. PT/OT working with the patient and patient is weak. 05/17/2021 Patient is seen today and family at the bedside. Per nursing staff patient continues with urinary retention. Urology following. Patient had lange removed yesterday. Patient also more distended today and very minimal bowel sounds noted. Patient denies bowel movement. Patient is more confused as well today. Patient with left upper extremity swelling and doppler ordered. Patient to continue NPO at this time per surgery recommendations. Patient denies chest pain or shortness of breath. Patient is afebrile. Patient continues to be extremely weak and PT/OT following. Sodium is 145 today and will switch to D5 in Water. 05/18/2021 Patient is seen today and is awake and alert although continues with confusion at times. Patient per nursing staff was having continued urinary retention and difficulty urinating and normally uses Flomax and finasteride as a daily medication and will resume an indwelling Lange catheter has been reinserted and will continue for now for retention and strict intake and output monitoring. Patient also continues to be nothing by mouth for now with the possibility of starting clears although TPN is being initiated at this time. Patient with abdominal distention which appears to be slightly improved with sluggish bowel sounds noted. Patient reports the passing gas but no bowel movement as of yet. Recommend PT/OT therapy daily as patient continues to be weak. Patient's sodium was mildly elevated and slowly trending down and will continue D5 in water and repeat labs ordered. All medications have been reviewed Active Medications Albuterol/Ipratropium (Ipratropium-Albuterol 3 Ml Neb) 3 ml INHALATION RT-TID PRN PRN Reason: Shortness Of Breath Or Wheezing Last Admin: 05/16/21 05:55 Dose: 3 ml Documented by: Apixaban (Apixaban 5 Mg Tab) 5 mg PO BID [facility]; Protocol Last Admin: 05/18/21 12:56 Dose: 5 mg Documented by: Finasteride (Finasteride 5 Mg Tab) 5 mg PO DAILY [facility] Last Admin: 05/18/21 10:37 Dose: 5 mg Documented by: Hydromorphone HCl (Hydromorphone 0.5 Mg/0.5 Ml Syringe) 0.5 mg IVP Q3HR PRN PRN Reason: Moderate Pain Last Admin: 05/17/21 03:33 Dose: 0.5 mg Documented by: Dextrose/Water (Dextrose 5%-Water Iv Soln) 1,000 mls @ 75 mls/hr IV .[id number] [facility] Last Admin: 05/18/21 04:23 Dose: 75 mls/hr Documented by: Parenteral Vitamin Supplement 10 ml/ Zinc/Copper/Manganese/Selenium 1 ml/ Sodium Phosphate 15 mmol/ Potassium Acetate 40 meq/ Magnesium Sulfate 8 meq/ Calcium Gluconate 1 gm/ Amino Acids/Dextrose 1,047.9704 mls @ 30 mls/hr IV .Q24H ONE Stop: 05/19/21 12:59 Last Admin: 05/18/21 14:56 Dose: 30 mls/hr Documented by: Parenteral Vitamin Supplement 10 ml/ Zinc/Copper/Manganese/Selenium 1 ml/ Sodium Phosphate 15 mmol/ Potassium Acetate 40 meq/ Magnesium Sulfate 8 meq/ Calcium Gluconate 1 gm/ Amino Acids/Dextrose 1,047.9704 mls @ 95 mls/hr IV .BY DURATION [facility] Sodium Phosphate 15 mmol/Potassium Acetate 40 meq/Magnesium Sulfate 8 meq/Calcium Gluconate 1 gm/ Amino Acids/Dextrose 1,036.9704 mls @ 95 mls/hr IV .BY DURATION [facility] Fat Emulsion Intravenous 250 (ml/ IV Solution) 250 mls @ 21 mls/hr IV Th [facility] Last Admin: 05/18/21 14:56 Dose: 21 mls/hr Documented by: Levothyroxine Sodium (Levothyroxine 50 Mcg Tab) 50 mcg PO DAILY@0630 [facility] Last Admin: 05/18/21 06:53 Dose: 50 mcg Documented by: Melatonin (Melatonin 5 Mg Tablet) 5 mg PO HS PRN PRN Reason: Insomnia Last Admin: 05/17/21 21:03 Dose: 5 mg Documented by: Metoprolol Tartrate (Metoprolol Tartrate 25 Mg Tab) 25 mg PO BID [facility] Last Admin: 05/18/21 10:36 Dose: 25 mg Documented by: Miscellaneous Information (Potassium Replacement Protocol 1 Each Misc) 1 each MISCELLANE DAILY PRN; Protocol PRN Reason: Per Protocol Pantoprazole Sodium (Pantoprazole 40 Mg Tablet) 40 mg PO [id number] [facility] Last Admin: 05/18/21 06:53 Dose: 40 mg Documented by: Sodium Chloride (Sodium Chloride 0.9% Flush 10 Ml Syringe) 10 ml IV Q4HR PRN PRN Reason: PICC Line Sodium Chloride (Sodium Chloride 0.9% Flush 10 Ml Syringe) 10 ml IV WEEKLY [facility] Sodium Chloride (Sodium Chloride 0.9% Flush 10 Ml Syringe) 20 ml IV Q4HR PRN PRN Reason: PICC Line Tamsulosin HCl (Tamsulosin 0.4 Mg Cap.Er.24h) 0.4 mg PO BID [facility] Last Admin: 05/18/21 10:36 Dose: 0.4 mg Documented by: Tramadol HCl (Tramadol 50 Mg Tab) 50 mg PO QID PRN PRN Reason: Pain Last Admin: 05/18/21 10:36 Dose: 50 mg Documented by: PHYSICAL EXAMINATION: GENERAL: The patient is awake, alert and oriented 1-2, periods of confusion, rambling. Well developed, well nourished. HEENT: Pupils are round and equally reacting to light. EOMI. no scleral icterus. No conjunctival pallor. Normocephalic, atraumatic. No pharyngeal erythema. No thyromegaly. CARDIOVASCULAR: S1 and S2 muffled PULMONARY: diminished breath sounds bilaterally with no wheezing or rhonchi noted. ABDOMEN: soft. Tender. distended, sluggish bowel sounds. surgical dressing with some mild drainage noted. No palpable organomegaly. Abdominal binder noted. MUSCULOSKELETAL: No joint swelling or deformity. EXTREMITIES: No cyanosis, clubbing, or pedal edema. NEUROLOGICAL: Gross neurological examination did not reveal any focal deficits. diffusely weak SKIN: No rashes. Assessment: High-grade small bowel obstruction Status post exploratory laparotomy with removal of intraperitoneal mesh, lysis of extensive lesions and small bowel resection Atrial fibrillation with RVR during surgery, currently sinus rhythm Hematuria status post indwelling Lange catheter insertion Urinary retention requiring reinsertion of indwelling Lange catheter on 05/17/2021 Dehydration with acute renal failure, improving Elevated white blood count, improved Hypokalemia Paroxysmal atrial fibrillation History of sick sinus syndrome with pacemaker implantation Valvular heart disease Hyperlipidemia History of hypothyroidism Chronic obstructive pulmonary disease, not an exacerbation GI prophylaxis DVT prophylaxis Full code Plan: Recommend to continue with current medications and symptomatic management. Patient is currently sitting up in bed. Patient reports to passing gas and denies bowel movements. Patient is NPO currently although discussion is being had about possibly starting clear liquids and TPN is being initiated and patient is to have a PICC line placed today. Indwelling Lange catheter replaced as patient was retaining and will reorder finasteride and Flomax as patient takes regularly on a daily basis. Anticoagulant resumed. Incentive spirometer at the bedside and encouraged the patient continue using at least 10 times every hour while awake and also increased activity as tolerated. Physical therapy following the patient. Plan per patient is to go home once discharged. Discussed with and patient about possible ECF and patient is extremely weak and will be difficult to safely manage at home. suggested [place] although still thinking about discharge planning. Will follow up. Will repeat a.m. labs. Due to multiple complex medical issues, prognosis is guarded. The impression and plan of care has been dictated by Renu Cantu, nurse practitioner as directed. MD Erica I have performed a history and examination and MDM of this patient, discussed the same with the dictator, and agree with the dictator's assessment and plan as written ,documented as a scribe. Based on total visit time, I have performed more than 50% of the visit. Objective - Vital Signs Vital signs: Vital Signs Temp 98.4 F 05/18/21 04:19 Pulse 96 05/18/21 04:19 Resp 20 05/18/21 04:19 BP 119/77 05/18/21 04:19 Pulse Ox 94 L 05/18/21 04:19 Intake & Output 05/17/21 05/18/21 05/18/21 18:59 06:59 18:59 Intake Total 625 Output Total 700 600 Balance -75 -600 Weight 97.8 kg Intake: IV 625 Sodium Chloride 0.9% 1, 525 000 ml @ 75 mls/hr IV . [id number] Rx#:[id number] metroNIDAZOLE-NS PMX 500 100 mg In Saline 1 100ml.bag @ 100 mls/hr IVPB Q8HR [facility] Rx#:[id number] Output: Urine 700 600 Straight 500 Other: Voiding Method Indwelling Catheter ABP, PAP, CO, CI - Last Documented Arterial Blood Pressure 111/51 - Labs CBC & Chem 7: 05/17/21 07:02 05/18/21 06:29 Labs: Abnormal Lab Results - Last 24 Hours (Table) 05/17/21 05/17/21 05/18/21 Range/Units 15:18 15:30 06:29 PT 13.2 H (9.0-12.0) sec INR 1.3 H (<1.2) Potassium 3.4 L (3.5-5.1) mmol/L Chloride 118 H (98-107) mmol/L BUN 21 H (9-20) mg/dL Glucose 118 H (74-99) mg/dL Calcium 7.1 L (8.4-10.2) mg/dL Albumin 2.1 L (3.5-5.0) g/dL 05/18/21 Range/Units 06:29 PT 12.2 H (9.0-12.0) sec INR (<1.2) Potassium (3.5-5.1) mmol/L Chloride (98-107) mmol/L BUN (9-20) mg/dL Glucose (74-99) mg/dL Calcium (8.4-10.2) mg/dL Albumin (3.5-5.0) g/dL
[2021-05-18] MEDS ORDERED: FAT EMULSION 20% 250 ML in EMPTY BAG 1 BAG IV SCH (16:00)
[2021-05-18] MEDS: IPRATROPIUM-ALBUTEROL 3 ML NEB INHALATION PRN (18:11)
[2021-05-18] MEDS: MELATONIN 5 MG TABLET PO PRN (23:16)
[2021-05-19] MEDS: traMADol 50 MG TAB PO PRN ×2 (04:08→19:37)
[2021-05-19] MEDS: PANTOPRAZOLE 40 MG TABLET PO SCH (06:54)
[2021-05-19] MEDS: LEVOTHYROXINE 50 MCG TAB PO SCH (06:54)
[2021-05-19] MEDS: DEXTROSE 5% IN WATER 1,000 ML IV SCH ×2 (07:03→18:27)
[2021-05-19 07:37] LABS: African American GFR (CKD) >90 (>60 ml/min/1.73 sqM); Anion Gap 2 mmol/L; Blood Urea Nitrogen 15 mg/dL (9-20); Calcium 6.9 mg/dL (8.4-10.2); Carbon Dioxide 24 mmol/L (22-30); Chloride 110 mmol/L (98-107); Glucose 143 mg/dL (74-99); Magnesium 1.8 mg/dL (1.6-2.3); Non-African American GFR(CKD) >90 (>60 ml/min/1.73 sqM); Phosphorus 2.1 mg/dL (2.5-4.5); Potassium 3.4 mmol/L (3.5-5.1); Sodium 136 mmol/L (137-145)
[2021-05-19] MEDS: TAMSULOSIN 0.4 MG CAP.ER.24H PO SCH ×2 (08:42→20:16)
[2021-05-19] MEDS: APIXABAN 5 MG TAB PO SCH ×2 (08:42→17:11)
[2021-05-19] MEDS: FINASTERIDE 5 MG TAB PO SCH (08:42)
[2021-05-19] MEDS: METOPROLOL TARTRATE 25 MG TAB PO SCH ×2 (08:42→20:16)
--- NOTE | 2021-05-19 10:43 | P.PN ---
Subjective This is a 80 year old male with a past medical history significant for sick sinus syndrome with previous pacemaker implantation, permanent atrial fib rillation, moderate mitral regurgitation, hypothyroidism, and hyperlipidemia. Patient follows in the office with Dr. Triplett. We have been asked to see the patient in consultation for atrial fibrillation. Patient presented to the emergency department with abdominal pain and was found to have small bowel obstruction. Patient is status post exploratory laparotomy, removal of intraperitoneal mesh, lysis of extensive adhesions and small bowel resection for small bowel obstruction, extensive adhesions, intraperitoneal mesh on 05/11/2021. Patient was maintained on IV amiodarone drip and anticoagulation was held due to surgery. 05/19/2021 Patient seen and examined at bedside, no acute distress. His abdominal pain has resolved. Abdomen is less distended. He underwent PICC placement and TPN was initiated. He is started on Clear liquid diet. He is currently in atrial fibr illation with controlled ventricular rates. He is hemodynamically stable. He's currently maintained on Eliquis 5 mg twice a day, metoprolol tartrate 25 mg twice a day PHYSICAL EXAM: VITAL SIGNS: Reviewed. GENERAL: Well-developed in no acute distress. HEENT: . Neck supple. No JVD LUNGS: Respirations even and unlabored. Lungs essentially clear to auscultation bilaterally. HEART: Irregular rate and rhythm. S1 and S2 heard. ABDOMEN: Soft. EXTREMITIES: Normal range of motion. No clubbing or cyanosis. Peripheral pulses intact. No lower extremity edema NEUROLOGIC: Awake and alert. Oriented x 3. ASSESSMENT: High grade small bowel obstruction Status post exploratory laparotomy, removal of intraperitoneal mesh, lysis of extensive adhesions and small bowel resection for small bowel obstruction 05/11/21 Permanent atrial fibrillation, on long-term anticoagulation with Eliquis Sick sinus syndrome with previous pacemaker implantation Valvular heart disease Hyperlipidemia Hypothyroidism Hypokalemia PLAN: Continue beta deangelo and anticoagulation with Eliquis Continue cardiac telemetry. Replace potassium per protocol No further changes from a cardiology perspective. We will follow the patient as needed. Please reach out with any further questions or concerns. Nurse practitioner note has been reviewed by physician. Signing provider agrees with the documented findings, assessment, and plan of care. Objective - Vital Signs Vital signs: Vital Signs Temp 97.9 F 05/19/21 08:00 Pulse 87 05/19/21 08:00 Resp 18 05/19/21 08:00 BP 124/76 05/19/21 08:00 Pulse Ox 95 05/19/21 08:00 Intake & Output 05/18/21 05/19/21 05/19/21 18:59 06:59 18:59 Intake Total 450 30 Output Total 700 400 Balance -250 -400 30 Intake: Oral 450 30 Output: Urine 700 400 Other: Voiding Method Indwelling Catheter Indwelling Catheter Indwelling Catheter # Voids 1 ABP, PAP, CO, CI - Last Documented Arterial Blood Pressure 111/51 - Labs CBC & Chem 7: 05/17/21 07:02 05/19/21 06:11 Labs: Abnormal Lab Results - Last 24 Hours (Table) 05/19/21 Range/Units 06:11 Sodium 136 L (137-145) mmol/L Potassium 3.4 L (3.5-5.1) mmol/L Chloride 110 H (98-107) mmol/L Creatinine 0.63 L (0.66-1.25) mg/dL Glucose 143 H (74-99) mg/dL Calcium 6.9 L (8.4-10.2) mg/dL Phosphorus 2.1 L (2.5-4.5) mg/dL
[2021-05-19] MEDS: POTASSIUM CHLORIDE ER 20 MEQ TAB.ER PO SCH ×2 (11:51→11:54)
--- NOTE | 2021-05-19 12:29 | P.PN ---
Subjective Progress Note Date: 05/19/21 CHIEF COMPLAINT: Small bowel obstruction HISTORY OF PRESENT ILLNESS: Patient is postop day #9 status post exploratory laparotomy, removal of intraperitoneal mesh, lysis of extensive adhesions and small bowel resection for small bowel obstruction, extensive adhesions, intraperitoneal mesh. Patient reports that his abdominal pain is better today. Denies any nausea or vomiting. His abdominal distention is decreasing. He is having flatus. Did have a bowel movement this morning. He did receive PICC line and started on TPN yesterday. Afebrile. Sodium 136 potassium 3.4 creatinine 0.63 phosphorus 2.1 magnesium 1.8 Patient seen and examined with Dr. thornton PHYSICAL EXAM: VITAL SIGNS: Reviewed. GENERAL: Intubated. HEENT: Moist buccal mucosa. Head is atraumatic, normocephalic. ABDOMEN: Soft. Decreased abdominal distention. Incision site with serosanguineous drainage at the umbilicus and distally. Erythema around the distal aspect of the incision is decreasing. Minimal tenderness with palpation Neurology: Patient alert and orientated with episodes of confusion ASSESSMENT: 1. Status post exploratory laparotomy, removal of intraperitoneal mesh, lysis of extensive adhesions and small bowel resection for small bowel obstruction, extensive adhesions and intraperitoneal mesh 2. A. fib with RVR during surgery PLAN: -Advance diet to full liquids -Continue TPN for nutrition support for now -Continue pain medication as needed -Encourage patient to ambulate -Encourage patient to use incentive spirometer -Continue GI prophylaxis and DVT prophylaxis [facility] Physician Tassel Snipper note has been reviewed by physician. Signing provider agrees with the documented findings, assessment, and plan of care. Objective - Vital Signs Vital signs: Vital Signs Temp 97.9 F 05/19/21 08:00 Pulse 87 05/19/21 08:00 Resp 18 05/19/21 08:00 BP 124/76 05/19/21 08:00 Pulse Ox 95 05/19/21 08:00 Intake & Output 05/18/21 05/19/21 05/19/21 18:59 06:59 18:59 Intake Total 450 30 Output Total 700 400 450 Balance -250 -400 -420 Weight 97.8 kg Intake: Oral 450 30 Output: Urine 700 400 450 Other: Voiding Method Indwelling Catheter Indwelling Catheter Indwelling Catheter # Voids 1 # Bowel Movements 1 ABP, PAP, CO, CI - Last Documented Arterial Blood Pressure 111/51 - Labs CBC & Chem 7: 05/17/21 07:02 05/19/21 06:11 Labs: Abnormal Lab Results - Last 24 Hours (Table) 05/19/21 Range/Units 06:11 Sodium 136 L (137-145) mmol/L Potassium 3.4 L (3.5-5.1) mmol/L Chloride 110 H (98-107) mmol/L Creatinine 0.63 L (0.66-1.25) mg/dL Glucose 143 H (74-99) mg/dL Calcium 6.9 L (8.4-10.2) mg/dL Phosphorus 2.1 L (2.5-4.5) mg/dL
--- NOTE | 2021-05-19 13:52 | CDI ---
Documentation Clarification Form Date: 05/19/2021 01:25:03 PM From: Florecita Mccoy RN CCDS Admit Date: 05/10/2021 12:15:00 PM Patient Name: Willian Caputo Visit Number: [id number] Discharge Date: ATTENTION: The Clinical Documentation Specialists (CDI) and [facility] Coding Staff appreciate your assistance in clarifying documentation. Please respond to the clarification below the line at the bottom and electronically sign. The CDI & [facility] Coding staff will review the response and follow-up if needed. Please note: Queries are made part of the Legal Health Record. If you have any questions, please contact the author of this message via ITS. Dr. Sidney Silva Your patient has the documented symptom of Confusion 05/17 and 05/18, Internal Medicine progress notes. Additional clarification regarding the etiology/cause of this symptom is requested. History/Risk Factors: 80-year-old male presents to the ED via EMS with vomiting and severe abdominal pain. The patient is very distended. Medical history: Prior colon resection, prostate disorder and hernia repair. 05/10, ED report. Clinical Indicators: 05/18, Internal Medicine progress note: Patient is seen today and is awake and alert although continues with confusion at times. Labs: Wbc 6.3 VSS 05/17: B/P 130/81; HR 98; RR 18; Temp 98.3 F Oral; SpO2 95% room Treatment: Neuro checks, Lab monitoring Please clarify the etiology of the symptom of Confusion. [ ] Metabolic Encephalopathy due to [x ] Dementia (if know, specify Type and if with/without Behavioral Disturbance) [ ] Other condition (please specify) [ ] Unable to determine Altered mental status, confusion most probably Toxic encephalopathy secondary to narcotic use. Documented 05/19 Dr. Silva. (Template Last Revised: April 2020) MTDD
[2021-05-19] MEDS: 1: MVI, ADULT NO.4 WITH VIT K 10 ML, TRACE (CONC-1ML/DOSE) 1 ML, SODIUM PHOSPHATE 15 MMO IV SCH ×7 (14:01)
--- NOTE | 2021-05-19 14:01 | P.PN ---
Subjective Progress Note Date: 05/19/21 Principal diagnosis: Abdominal pain 80-year-old white male patient with past medical history of smoking, stage II COPD, baseline FEV1 80% of predicted, obstructive sleep apnea on APAP therapy, benign prostatic hyperplasia, previous history of intestinal obstruction with bowel resection surgery, history of a permanent pacemaker insertion, chronic kidney disease, chronic paralysis of hemidiaphragm, atrial fibrillation on Eliquis, BPH, chronic back pain, former smoker. Patient came in on 05/10/2021 with complaints of abdominal pain and vomiting. CT of the abdomen and pelvis in the ER showing marked dilation of the proximal small bowel loops and stomach highly suggestive of high-grade small bowel obstruction, 8mm posterior bladder calculus, cardiomegaly with small pericardial effusion and basilar atelectasis, prostate hypertrophy. White blood cell count is 22.1, hemoglobin is 19.8, platelet count was 205, sodium is 131, potassium is 5.1, chloride 97, CO2 is 24, BUN is 58, creatinine is 1.34, LFTs are within normal limits, amylase was 106, lipase was 107, urinalysis was negative for signs of infection. Surgical services have been consulted, NG tube has been inserted, patient remains nothing by mouth, he is scheduled for exploratory laparotomy on 05/11/[address] Collado, patient is getting IV hydration, alk phos is on hold. Denies any difficulty breathing, chest x-ray showing chronic changes without evidence for acute pulmonary disease. On 05/12/2021 patient seen in follow-up in the intensive care unit, yesterday patient had exploratory laparotomy with removal of intraperitoneal mesh, lysis of extensive adhesions, and small bowel resection. Patient returned to the intensive care unit intubated and sedated. Currently remains on assist-control ventilation with a rate of 16, tidal volume 500, FiO2 of 50% and PEEP of 5. This morning's blood gas shows pO2 of 127, pCO2 of 32, and pH of 7.36 this was on 50% FiO2. Chest x-ray shows ET tube 5.5 cm above the rona, NG tube in appropriate position, with the tip below the diaphragm, and right central venous line with the tip within the right atrium. Persistent elevation of the right hemidiaphragm, small bilateral pleural effusions. Patient is currently on 0.9 normal saline at a rate of 75 ML per hour, amiodarone at 0.5 g/m, vasopressin is at 0.03 units per minute, and improving his at 3 mics per kilo per minute. Yesterday in the postoperative period patient went into A. fib with RVR, patient does have history of chronic A. fib, however she was loaded with amiodarone and started on amiodarone drip per protocol, currently heart rate is better controlled. Received 2 L in IV fluid boluses, and maintenance IV fluids infusing at 75 ML per hour, abiotic's in the form of Flagyl. Today's labs have been reviewed, white blood cell count is 7.4, hemoglobin is 14.9, platelet count is 136, sodium is 134, potassium is 4.3, chloride is 112, CO2 17, BUN is 33, creatinine is 1.01. Surgical incisions are clean dry and intact, abdomen is soft but tender to touch. NG tube remains in place, patient is nothing by mouth, no tube feedings or TPN yet. Will await further recommendations from surgery in regards to the timing of nutrition initiation. On 05/15/2021, I'm seeing the patient for a follow-up. The patient is postop day #4. The patient underwent laparotomy, removal of a intraperitoneal mesh and lysis of adhesions and small bowel resection for small bowel obstruction. The p atient also has extensive adhesions and intraperitoneal mesh removal. The patient's surgical with that and recommended that although there is some serosanguineous material was weaned from the wound surface. The patient is going to require wound change and dressing change. The patient remains in a trial fibrillation. The patient is doing well. He is using incentive spirometer. He is afebrile. NG tube was removed today by surgery and the patient will be started on clear liquid diet. His pain is under adequate control. The patient remains on subcutaneous heparin for DVT prophylaxis. He i s slightly tachycardic and today's evaluation the patient remains in atrial fibrillation. The white cell count of 10.5 with hemoglobin of 12 and a platelet count of 145. BUN is at 21 with a creatinine of 0.9 and sodium level is at 141. On 05/16/2021 patient seen in follow-up on selective care unit, today is postoperative day number 5, status post laparotomy, removal of intraperitoneal mesh and lysis of adhesions and small bowel resection for small bowel obstruction. Patient is awake and alert, he is oriented 3, he is currently on room air, with a pulse ox of 94%, breathing comfortably, denies any dyspnea unless he is ambulating, and generally patient is weak, he is requiring the use of a walker and one person assist. Lung sounds are negative for any wheezing, denies any cough or phlegm production, he is working on his incentive spirometer quite diligently, and he is receiving 1.25 liters on the today. X-ray on 05/13/2021 shows small bilateral pleural effusions. Patient is tolerating clear liquid diet. And has not had any bowel movements, however he is passing flatus. Hemodynamically has remained stable, remains in atrial fibrillation which is chronic for him but the rate is controlled, his Ahlquist has been resumed with surgical clearanc Cardiology is following. His had no acute events overnight. he was experiencing some hematuria and retention, and urology consultation has been obtained, urine has cleared up, and Narvaez catheter has been removed this morning. On 05/17/2021 patient seen in follow-up on selective care unit, he denies any worsening shortness of breath, he remains on room air, his pulse ox is 95-96%, hemodynamically stable, no cough, no congestion, lung sounds are clear to auscultation, he is working on incentive spirometer quite diligently, he is achieving 1.5 L on the today. Patient's today is postoperative day #6 status post exploratory laparotomy, with extensive lysis of adhesions, intraperitoneal mesh removal and small bowel resection. Surgical services are following, and there is increased abdominal distention, patient has not had a bowel movement but he has been passing flatus. He has been also experiencing some urinary retention, Narvaez is currently discontinued. At this point he is again nothing by mouth. Yesterday he was on clear liquid diet. He denies any nausea or vomiting. Today's labs have been reviewed, white blood cell count is 6.3, hemoglobin is 12.3, platelet count is 160, sodium is 145, potassium 3.6, chl oride is 122, chloride is 21, BUN is 22 creatinine 0.76. He remains in atrial fibrillation, his Elliquis has been restarted with surgical clearance. His rate is controlled. On 05/18/2021 patient seen in follow-up on selective care unit, patient is awake and alert, in no acute distress, he just returned from insertion of a PICC line, and the plan is to start TPN infusion. Patient had been nothing by mouth, he is passing gas, but has not had a bowel movement. His abdomen is slightly distended, but no more distended than it was yesterday. Patient denies any abdominal pain. Tory are clean dry and intact, small amount of serous drainage from the incisions. Afebrile. Vital signs have been stable, room air pulse ox is 93%, lung sounds are clear. Narvaez catheter is in place. Patient h as been resumed on his Eliquis. Vital signs are stable, heart rate is controlled. Blood cultures and urine cultures are negative. Continues on nebulized bronchodilators. On 05/19/2021 patient is seen in follow-up on selective care unit, his breathing comfortably, he is on room air and pulse ox is 95%, hemodynamically stable, no fever or chills, no acute events overnight, patient was able to have a bowel movement today, his abdomen is less distended. Patient is tolerating clear liquid diet. No nausea or vomiting. Still remains on TPN. Vital signs have been stable, patient has been afebrile, vital signs have been stable, he is been working on incentive spirometer, he is achieving 1250 on it today. Today's labs have been reviewed, BNP was done showing sodium of 136, potassium is 3.4, ch loride is 110, B1 of 15 creatinine 0.63. Patient has been up ambulating with physical therapy and a walker. Objective - Vital Signs Vital signs: Vital Signs Temp 97.9 F 05/19/21 08:00 Pulse 87 05/19/21 08:00 Resp 18 05/19/21 08:00 BP 124/76 05/19/21 08:00 Pulse Ox 95 05/19/21 08:00 Intake & Output 05/18/21 05/19/21 05/19/21 18:59 06:59 18:59 Intake Total 450 450 Output Total 700 400 450 Balance -250 -400 0 Weight 97.8 kg Intake: Oral 450 450 Output: Urine 700 400 450 Other: Voiding Method Indwelling Catheter Indwelling Catheter Indwelling Catheter # Voids 1 # Bowel Movements 1 ABP, PAP, CO, CI - Last Documented Arterial Blood Pressure 111/51 - Exam GENERAL EXAM: Awake and alert, 80-year-old white male, on room air, with a pulse ox of 93-94% Comfortable in no apparent distress. HEAD: Normocephalic/atraumatic. EYES: Normal reaction of pupils, equal size. Conjunctiva pink, sclera white. NOSE: Clear with pink turbinates. THROAT: No erythema or exudates. NECK: No masses, no JVD, no thyroid enlargement, no adenopathy. CHEST: No chest wall deformity. Symmetrical expansion. LUNGS: Equal air entry with no crackles, wheeze, rhonchi or dullness. CVS: Irregular rate and rhythm, normal S1 and S2, no gallops, no murmurs, no rubs ABDOMEN: Soft, mild postsurgical tenderness. abdominal incision is clean dry and intact with some mild serosanguineous drainage, tory are intact, abdominal incision is covered with a surgical dressing No hepatosplenomegaly, normal bowel sounds, no guarding or rigidity. Abdominal incision is clean dry and intact, abdomen is soft, but tender to touch, abdominal binder is in place EXTREMITIES: No clubbing, no edema, no cyanosis, 2+ pulses and upper and lower extremities. MUSCULOSKELETAL: Muscle strength and tone normal. SPINE: No scoliosis or deformity SKIN: No rashes CENTRAL NERVOUS SYSTEM: Awake and alert. No focal deficits, tone is normal in all 4 extremities. - Labs CBC & Chem 7: 05/17/21 07:02 05/19/21 06:11 Labs: Abnormal Lab Results - Last 24 Hours (Table) 05/19/21 Range/Units 06:11 Sodium 136 L (137-145) mmol/L Potassium 3.4 L (3.5-5.1) mmol/L Chloride 110 H (98-107) mmol/L Creatinine 0.63 L (0.66-1.25) mg/dL Glucose 143 H (74-99) mg/dL Calcium 6.9 L (8.4-10.2) mg/dL Phosphorus 2.1 L (2.5-4.5) mg/dL Assessment and Plan Plan: Assessment: #1. High-grade small bowel obstruction, status post exploratory laparotomy on 05/11/2021, with extensive lysis of adhesions, intraperitoneal mesh removal, and small bowel resection #2. Routine postoperative ventilator management, safely weaned and extubated, currently tolerating extubation quite well so far #3. A. fib with RVR in the postoperative period, had been started on amiodarone drip, currently better controlled, and amiodarone drip has been discontinued. Eliquis was has been restarted #4. Hematuria, resolved, urology is following, Narvaez has been discontinued and then reinserted. Ellik was has been restarted #5. Previous history of bowel resection #6. History of chronic atrial fibrillation, on Eliquis athome #7. History of sick sinus syndrome with history of pacemaker implantation #8 Hyperlipidemia #9. Hypothyroidism #10. Valvular heart disease #11. Mild COPD with baseline FEV1 of 80%, stable #12. Left upper extremity swelling, left upper extremity Doppler was negative for DVT Plan: Vital signs have been stable, patient remains on room air, Continue encouraging deep breathing and coughing Continue nebulized bronchodilators Continue incentive spirometry use Patient is tolerating clear liquid diet Passed a bowel movement Stable from pulmonary perspective Follow-up on an as-needed basis I have personally seen and examined the patient, performed the documentation and the assessment and plan as written. Number of minutes spent on the visit: [10] I have personally seen and examined the patient and reviewed the documentation. I performed a joint evaluation with the nurse practitioner in this evaluation was done more than 20 minutes. I fully agree with the documentation above and the plan of care.. The patient is doing well. We are celebrating his bowel movement activity today. Patient remains on room air oxygen. The patient was also started on anticoagulation regarding his chronic atrial fibrillation. Clear liquid diet. We'll continue to follow as needed. The patient is currently on TPN for nutritional support. Time with Patient: Less than 30
--- NOTE | 2021-05-19 14:16 | CDI ---
Documentation Clarification Form Date: 05/19/2021 01:55:14 PM From: Florecita Mccoy Admit Date: 05/10/2021 12:15:00 PM Patient Name: Willian Caputo Visit Number: [id number] Discharge Date: ATTENTION: The Clinical Documentation Specialists (CDI) and [facility] Coding Staff appreciate your assistance in clarifying documentation. Please respond to the clarification below the line at the bottom and electronically sign. The CDI & [facility] Coding staff will review the response and follow-up if needed. Please note: Queries are made part of the Legal Health Record. If you have any questions, please contact the author of this message via ITS. Dr. Sidney Silva Urine retention is documented 05/19, Internal Medicine progress note and patient had 05/11,Exploratory Lap. Additional clarification is requested regarding the relationship, if any, that exists between the diagnosis and the procedure. Patients Admitting Diagnosis: Small bowel obstruction. Post-Operative Diagnosis: Small bowel obstruction; Extensive adhesions, Intraperitoneal mesh and A Fib with rapid ventricular rate. Procedure performed: Exploratory laparotomy; Removal of intraperitoneal mesh; Lysis of extensive adhesions; Small bowel resection. History/Risk Factors: History/Risk Factors: 80-year-old male presents to the ED via EMS with vomiting and severe abdominal pain. The patient is very distended. Medical history: Prior colon resection, prostate disorder and hernia repair. 05/10, ED report. Clinical Indicators: Urology progress note 05/15: CT is significant for a bladder stone and a significantly enlarged prostate. Medicine progress note 05/18: Urinary retention requiring reinsertion of indwelling Narvaez catheter on 05/17/21. Patient per nursing staff was having continued urinary retention and difficulty urinating and normally uses Flomax and Finasteride as a daily medication. Treatment: 05/17 Narvaez reinsertion; 05/17 to current Finasteride 5mg PO Daily; 05/17 to current Flomax 0.4mg BID. Consults: Urology What relationship, if any, exists between the diagnosis of urine retention and the procedure: [ ] Urine retention is a complication of surgical procedure [ ] Urine retention is an expected outcome of the surgical procedure [x ] Urine Retention is related to patients co-morbid condition(s) of prostate disorder & not a complication of the procedure [ ] Other please specify ____ [ ] Unable to determine (Template Last Revised: May 2020) MTDD
--- NOTE | 2021-05-19 14:23 | P.PN ---
Subjective Progress Note Date: 05/19/21 This is a pleasant 80-year-old male who was recently admitted with abdominal pain and discomfort with constipation and patient also found to be dehydrated and being closely monitored. Patient underwent CT abdomen and pelvis which showed marked dilation of several small bowel loops including the stomach with an abrupt caliber change within the mid abdomen. Centrally to the left with a normal filling distal loops and findings are felt to be highly suspicious for high-grade small bowel obstruction with internal hernia or adhesions not entirely excluded. Appendix appeared normal. Patient to continue with NG tube and nothing by mouth at this time. Cardiology consulted for surgical clearance which is currently pending. Patient denies any chest pain or shortness of breath. Patient is afebrile. Patient also continued on IV Protonix along with Flagyl an appropriate home medications have been resumed. 05/12/2021 Patient is seen and evaluated in follow-up continues to be closely monitored wi th multiple medical consultations following. Patient is status post exploratory laparotomy and underwent removal of intraperitoneal mesh, extensive lysis of adhesions, small bowel resection and is being closely monitored. Patient is in the ICU and is recently intubated and currently being weaned off sedation for possible extubation. Patient was also noted to have A. fib with RVR during surgery and cardiology is following. Patient with indwelling Lange catheter and noted hematuria and urology has been consulted. Urine culture finalized showing apparent skin and/or genital andreas. Patient is maintained on IV antibiotics in the form of Flagyl and will continue. On exam patient is awake and following the commands appropriately but somewhat confused per nursing staff. Chest x-ray this morning shows left upper chest wall dual-lead pacemaker with persistent elevation of the right hemidiaphragm and small bilateral pleural effusions unchanged. 05/15/2021 Patient is seen and evaluated in follow-up this morning with at the bedside currently sitting up in the chair. NG tube is being removed and patient is being started on low-sodium clear liquid diet per surgery recommendations. Multiple medical consultations following and patient is status post exploratory laparotomy. Patient continues on IV antibiotics in the form of Flagyl. Patient being transitioned to oral anticoagulant along with oral Lopressor and patient is off IV amiodarone. Incentive spirometer at the bedside and encourage the patient to continue using at least 10 times every hour while awake. Urology has evaluated the patient recommending trial voiding tomorrow and monitoring for any retention and/or further hematuria. PT/OT following. Patient reports to passing gas although no reports bowel movements as of yet. Patient denies chest pain, shortness of breath, or palpitations. Patient is afebrile. White blood count currently normalized at 10.5. 05/16/2021 Patient is seen in follow up today and reports to feeling some mild abdominal pain and passing minimal gas with no bowel movement. General surgery following and continues on clear liquids. Patient had lange catheter removed today and is due to void. Urology following for hematuria. Reports to less blood noted al though continues to be present. Patient is on IV flagyl and surgical site noted to have some drainage. Patient reports to abdominal pain but denies nausea or vomiting. Patient denies chest pain or shortness of breath. Patient is afebrile. PT/OT working with the patient and patient is weak. 05/17/2021 Patient is seen today and family at the bedside. Per nursing staff patient continues with urinary retention. Urology following. Patient had lange removed yesterday. Patient also more distended today and very minimal bowel sounds noted. Patient denies bowel movement. Patient is more confused as well today. Patient with left upper extremity swelling and doppler ordered. Patient to continue NPO at this time per surgery recommendations. Patient denies chest pain or shortness of breath. Patient is afebrile. Patient continues to be extremely weak and PT/OT following. Sodium is 145 today and will switch to D5 in Water. 05/18/2021 Patient is seen today and is awake and alert although continues with confusion at times. Patient per nursing staff was having continued urinary retention and difficulty urinating and normally uses Flomax and finasteride as a daily medication and will resume an indwelling Lange catheter has been reinserted and will continue for now for retention and strict intake and output monitoring. Patient also continues to be nothing by mouth for now with the possibility of starting clears although TPN is being initiated at this time. Patient with abdominal distention which appears to be slightly improved with sluggish bowel sounds noted. Patient reports the passing gas but no bowel movement as of yet. Recommend PT/OT therapy daily as patient continues to be weak. Patient's sodium was mildly elevated and slowly trending down and will continue D5 in water and repeat labs ordered. 05/19/2021 Patient is seen and evaluated today being closely monitored with urology and Gen. surgery following. Patient is lethargic although arousable much more alert and responding appropriately today. Patient reports the passing gas and was able to have a bowel movement today. Patient currently resting comfortably on room air and denies any chest pain or shortness of breath. Encourage the patient to continue elevating left upper extremity as there was swelling noted. Patient tolerating clear liquids per general surgery recommendations and continues on TPN. Potassium mildly low at 3.4 and magnesium is 1.8. Will replace per protocol and repeat labs. Recommend to continue with indwelling Lange catheter as patient was retaining and also to continue to monitor intake and output closely. Review of systems: Constitutional: reports of fatigue, no reports of fever, or chills Cardiovascular: No reports of chest pain or palpitations Respiratory: No reports of shortness of breath or cough GI: No reports of nausea, vomiting, reports passing large amounts of gas and was able to have a bowel movement today : No reports of dysuria, currently with an indwelling Lange catheter Neurovascular: reports of generalized weakness All medications have been reviewed Active Medications Albuterol/Ipratropium (Ipratropium-Albuterol 3 Ml Neb) 3 ml INHALATION RT-TID PRN PRN Reason: Shortness Of Breath Or Wheezing Last Admin: 05/18/21 18:11 Dose: 3 ml Documented by: Apixaban (Apixaban 5 Mg Tab) 5 mg PO BID [facility]; Protocol Last Admin: 05/19/21 08:42 Dose: 5 mg Documented by: Finasteride (Finasteride 5 Mg Tab) 5 mg PO DAILY [facility] Last Admin: 05/19/21 08:42 Dose: 5 mg Documented by: Hydromorphone HCl (Hydromorphone 0.5 Mg/0.5 Ml Syringe) 0.5 mg IVP Q3HR PRN PRN Reason: Moderate Pain Last Admin: 05/17/21 03:33 Dose: 0.5 mg Documented by: Dextrose/Water (Dextrose 5%-Water Iv Soln) 1,000 mls @ 75 mls/hr IV .[id number] S Last Admin: 05/19/21 07:03 Dose: Not Given Documented by: Parenteral Vitamin Supplement 10 ml/ Zinc/Copper/Manganese/Selenium 1 ml/ Sodium Phosphate 15 mmol/ Potassium Acetate 40 meq/ Magnesium Sulfate 8 meq/ Calcium Gluconate 1 gm/ Amino Acids/Dextrose 1,047.9704 mls @ 95 mls/hr IV .BY DURATION [facility] Sodium Phosphate 15 mmol/Potassium Acetate 40 meq/Magnesium Sulfate 8 meq/Calcium Gluconate 1 gm/ Amino Acids/Dextrose 1,036.9704 mls @ 95 mls/hr IV .BY DURATION [facility] Fat Emulsion Intravenous 250 (ml/ IV Solution) 250 mls @ 21 mls/hr IV Th [facility] Last Admin: 05/18/21 14:56 Dose: 21 mls/hr Documented by: Levothyroxine Sodium (Levothyroxine 50 Mcg Tab) 50 mcg PO DAILY@0630 [facility] Last Admin: 05/19/21 06:54 Dose: 50 mcg Documented by: Melatonin (Melatonin 5 Mg Tablet) 5 mg PO HS PRN PRN Reason: Insomnia Last Admin: 05/18/21 23:16 Dose: 5 mg Documented by: Metoprolol Tartrate (Metoprolol Tartrate 25 Mg Tab) 25 mg PO BID [facility] Last Admin: 05/19/21 08:42 Dose: 25 mg Documented by: Miscellaneous Information (Potassium Replacement Protocol 1 Each Misc) 1 each MISCELLANE DAILY PRN; Protocol PRN Reason: Per Protocol Pantoprazole Sodium (Pantoprazole 40 Mg Tablet) 40 mg PO AC-BRKFST [facility] Last Admin: 05/19/21 06:54 Dose: 40 mg Documented by: Sodium Chloride (Sodium Chloride 0.9% Flush 10 Ml Syringe) 10 ml IV Q4HR PRN PRN Reason: PICC Line Sodium Chloride (Sodium Chloride 0.9% Flush 10 Ml Syringe) 10 ml IV WEEKLY [facility] Sodium Chloride (Sodium Chloride 0.9% Flush 10 Ml Syringe) 20 ml IV Q4HR PRN PRN Reason: PICC Line Tamsulosin HCl (Tamsulosin 0.4 Mg Cap.Er.24h) 0.4 mg PO BID [facility] Last Admin: 05/19/21 08:42 Dose: 0.4 mg Documented by: Tramadol HCl (Tramadol 50 Mg Tab) 50 mg PO QID PRN PRN Reason: Pain Last Admin: 05/19/21 04:08 Dose: 50 mg Documented by: PHYSICAL EXAMINATION: GENERAL: The patient is awake, alert and oriented 2, get side tracked on conversation and distracted easily and tends to ramble easily redirected. Well developed, well nourished. HEENT: Pupils are round and equally reacting to light. EOMI. no scleral icterus. No conjunctival pallor. Normocephalic, atraumatic. No pharyngeal erythema. No thyromegaly. CARDIOVASCULAR: S1 and S2 muffled PULMONARY: diminished breath sounds bilaterally with no wheezing or rhonchi noted. ABDOMEN: soft. Less tender, less distended, sluggish bowel sounds. surgical dressing with some mild drainage noted. No palpable organomegaly. Abdominal binder noted. MUSCULOSKELETAL: No joint swelling or deformity. EXTREMITIES: No cyanosis, clubbing, or pedal edema. NEUROLOGICAL: Gross neurological examination did not reveal any focal deficits. diffusely weak SKIN: No rashes. 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 Patient is currently sitting up in bed. Patient reports to passing large amounts of gas and was able to have a bowel movement today. Patient is continued on TPN along with clear liquids and tolerating with no reports of nausea or vomiting noted. Abdomen is less distended today. Patient with continued drainage around the surgical site although looks better. Recommend to continue with Indwelling Lange catheter as patient was retaining. Finasteride and Flomax resumed. Urology following.. Anticoagulant resumed. Incentive spirometer at the bedside and encouraged the patient continue using at least 10 times every hour while awake and also increased activity as tolerated. Physical therapy following the patient. Plan per patient is to go home once discharged. Discussed with and patient about possible ECF and patient is extremely weak and will be difficult to safely manage at home. suggested [facility] although still thinking about discharge planning. Will follow up. Will repeat a.m. labs as potassium was mildly low at 3.4 will replace. Due to multiple complex medical i ssues, prognosis is guarded. The impression and plan of care has been dictated by Renu Cantu, nurse practitioner as directed. MD Nkechi I have performed a history and examination and MDM of this patient, discussed the same with the dictator, and agree with the dictator's assessment and plan as written ,documented as a scribe. Based on total visit time, I have performed more than 50% of the visit. Objective - Vital Signs Vital signs: Vital Signs Temp 98 F 05/19/21 03:45 Pulse 83 05/19/21 03:45 Resp 18 05/19/21 03:45 BP 116/77 05/19/21 03:45 Pulse Ox 94 L 05/19/21 03:45 Intake & Output 05/18/21 05/19/21 05/19/21 18:59 06:59 18:59 Intake Total 450 Output Total 700 400 Balance -250 -400 Intake: Oral 450 Output: Urine 700 400 Other: Voiding Method Indwelling Catheter Indwelling Catheter # Voids 1 ABP, PAP, CO, CI - Last Documented Arterial Blood Pressure 111/51 - Labs CBC & Chem 7: 05/17/21 07:02 05/19/21 06:11 Labs: Abnormal Lab Results - Last 24 Hours (Table) 05/19/21 Range/Units 06:11 Sodium 136 L (137-145) mmol/L Potassium 3.4 L (3.5-5.1) mmol/L Chloride 110 H (98-107) mmol/L Creatinine 0.63 L (0.66-1.25) mg/dL Glucose 143 H (74-99) mg/dL Calcium 6.9 L (8.4-10.2) mg/dL Phosphorus 2.1 L (2.5-4.5) mg/dL
[2021-05-19 15:01] LABS: Glucose,Whole Blood 155 mg/dL (75-99)
[2021-05-19 18:00] LABS: Glucose,Whole Blood 171 mg/dL (75-99)
[2021-05-19 19:33] LABS: Basophils % (A) 0 %; Eosinophils # (A) 0.2 k/uL (0-0.7); Eosinophils % (A) 2 %; HCT 39.4 % (39.0-53.0); HGB 12.4 gm/dL (13.0-17.5); Lymphocytes # (A) 0.8 k/uL (1.0-4.8); Lymphocytes % (A) 9 %; MCH 31.5 pg (25.0-35.0); MCHC 31.4 g/dL (31.0-37.0); MCV 100.4 fL (80.0-100.0); Macrocytosis Slight; Monocytes # (A) 0.3 k/uL (0-1.0); Monocytes % (A) 4 %; Neutrophils # (A) 7.7 k/uL (1.3-7.7); Neutrophils % (A) 84 %; Platelet Count 199 k/uL (150-450); RBC 3.93 m/uL (4.30-5.90); RDW 14.1 % (11.5-15.5); WBC 9.1 k/uL (3.8-10.6)
[2021-05-19] MEDS: MELATONIN 5 MG TABLET PO PRN (22:52)
[2021-05-20 00:37] LABS: Glucose,Whole Blood 189 mg/dL (75-99)
[2021-05-20] MEDS: 1: MVI, ADULT NO.4 WITH VIT K 10 ML, TRACE (CONC-1ML/DOSE) 1 ML, SODIUM PHOSPHATE 15 MMO IV SCH ×14 (03:00→14:31)
[2021-05-20 04:45] LABS: Basophils % (A) 0 %; Eosinophils # (A) 0.1 k/uL (0-0.7); Eosinophils % (A) 1 %; HCT 41.5 % (39.0-53.0); HGB 13.1 gm/dL (13.0-17.5); Hypochromasia Slight; Lymphocytes # (A) 1.1 k/uL (1.0-4.8); Lymphocytes % (A) 9 %; MCH 32.2 pg (25.0-35.0); MCHC 31.6 g/dL (31.0-37.0); MCV 101.8 fL (80.0-100.0); Macrocytosis Slight; Mean Platelet Volume 8.4; Monocytes # (A) 0.3 k/uL (0-1.0); Monocytes % (A) 3 %; Neutrophils % (A) 86 %; Platelet Count 234 k/uL (150-450); RBC 4.08 m/uL (4.30-5.90); RDW 14.5 % (11.5-15.5); WBC 11.6 k/uL (3.8-10.6)
[2021-05-20 05:07] LABS: ALT 19 U/L (4-49); African American GFR (CKD) >90 (>60 ml/min/1.73 sqM); Albumin 2.2 g/dL (3.5-5.0); Anion Gap 4 mmol/L; Blood Urea Nitrogen 16 mg/dL (9-20); Calcium 7.1 mg/dL (8.4-10.2); Carbon Dioxide 21 mmol/L (22-30); Chloride 107 mmol/L (98-107); Glucose 161 mg/dL (74-99); Non-African American GFR(CKD) >90 (>60 ml/min/1.73 sqM); Sodium 132 mmol/L (137-145); Total Bilirubin 1.1 mg/dL (0.2-1.3); Total Protein 4.7 g/dL (6.3-8.2)
[2021-05-20 05:31] LABS: AST 31 U/L (17-59); Alkaline Phosphatase 49 U/L (38-126); Magnesium 1.9 mg/dL (1.6-2.3); Phosphorus 2.4 mg/dL (2.5-4.5)
[2021-05-20 07:32] LABS: Glucose,Whole Blood 152 mg/dL (75-99)
[2021-05-20] MEDS: METOPROLOL TARTRATE 25 MG TAB PO SCH ×2 (08:48→20:44)
[2021-05-20] MEDS: PANTOPRAZOLE 40 MG TABLET PO SCH (08:48)
[2021-05-20] MEDS: LEVOTHYROXINE 50 MCG TAB PO SCH (08:48)
[2021-05-20] MEDS: TAMSULOSIN 0.4 MG CAP.ER.24H PO SCH ×2 (08:49→20:44)
[2021-05-20] MEDS: FINASTERIDE 5 MG TAB PO SCH (08:49)
[2021-05-20] MEDS: APIXABAN 5 MG TAB PO SCH ×2 (08:49→20:44)
--- NOTE | 2021-05-20 11:23 | P.PN ---
Progress Note - Text Progress Note Date: 05/20/21 The patient is feeling better. He has had bowel movements and flatus. On exam vital signs are stable. Abdomen soft. Incisions clean and intact. Status post small bowel obstruction, small bowel resection area patient will have his diet advanced to regular diet.
[2021-05-20 11:33] LABS: Glucose,Whole Blood 177 mg/dL (75-99)
[2021-05-20] MEDS: DEXTROSE 5% IN WATER 1,000 ML IV SCH (12:18)
[2021-05-20 13:18] LABS: Magnesium 1.9 mg/dL (1.6-2.3); Phosphorus 2.3 mg/dL (2.5-4.5); Potassium 3.6 mmol/L (3.5-5.1)
[2021-05-20] MEDS: traMADol 50 MG TAB PO PRN (14:33)
[2021-05-20 17:16] LABS: Glucose,Whole Blood 139 mg/dL (75-99)
[2021-05-21] MEDS: 1: MVI, ADULT NO.4 WITH VIT K 10 ML, TRACE (CONC-1ML/DOSE) 1 ML, SODIUM PHOSPHATE 15 MMO IV SCH ×14 (00:01→10:55)
[2021-05-21] MEDS: LEVOTHYROXINE 50 MCG TAB PO SCH (05:59)
[2021-05-21 06:23] LABS: Glucose,Whole Blood 179 mg/dL (75-99)
[2021-05-21 07:18] LABS: ALT 36 U/L (4-49); AST 52 U/L (17-59); African American GFR (CKD) >90 (>60 ml/min/1.73 sqM); Albumin/Globulin Ratio 0.9; Alkaline Phosphatase 55 U/L (38-126); Anion Gap 1 mmol/L; Blood Urea Nitrogen 19 mg/dL (9-20); Carbon Dioxide 25 mmol/L (22-30); Chloride 109 mmol/L (98-107); Globulin 2.3 g/dL; Glucose 143 mg/dL (74-99); Non-African American GFR(CKD) >90 (>60 ml/min/1.73 sqM); Phosphorus 2.6 mg/dL (2.5-4.5); Potassium 3.7 mmol/L (3.5-5.1); Sodium 135 mmol/L (137-145); Total Bilirubin 0.8 mg/dL (0.2-1.3); Total Protein 4.3 g/dL (6.3-8.2)
[2021-05-21 07:24] LABS: Glucose,Whole Blood 155 mg/dL (75-99)
[2021-05-21] MEDS: APIXABAN 5 MG TAB PO SCH ×2 (09:34→21:06)
[2021-05-21] MEDS: PANTOPRAZOLE 40 MG TABLET PO SCH (09:34)
[2021-05-21] MEDS: TAMSULOSIN 0.4 MG CAP.ER.24H PO SCH ×2 (09:34→21:06)
[2021-05-21] MEDS: FINASTERIDE 5 MG TAB PO SCH (09:34)
[2021-05-21] MEDS: METOPROLOL TARTRATE 25 MG TAB PO SCH ×2 (09:35→21:06)
--- NOTE | 2021-05-21 10:54 | P.PN ---
Progress Note - Text Progress Note Date: 05/21/21 Patient feels better. He is tolerating diet. On exam vital signs are stable. Abdomen soft. Incision is clean and intact. Status post exploratory problems, resection for small bowel obstruction. Patient has started regular diet. We will wean his TPN today.
[2021-05-21 11:51] LABS: Glucose,Whole Blood 149 mg/dL (75-99)
[2021-05-21 12:41] LABS: Basophils # (A) 0.04 X 10*3/uL (0.00-0.10); Basophils % (A) 0.4 %; Eosinophils # (A) 0.18 X 10*3/uL (0.04-0.35); Eosinophils % (A) 1.7 %; HCT 35.3 % (39.6-50.0); HGB 11.3 g/dL (13.0-17.0); Immature Grans, Automated 3.6 %; Lymphocytes # (A) 0.87 X 10*3/uL (0.90-5.00); Lymphocytes % (A) 8.3 %; MCH 31.7 pg (27.0-32.0); MCV 98.9 fL (80.0-97.0); Mean Platelet Volume 10.6 fL (9.5-12.2); Monocytes # (A) 0.62 X 10*3/uL (0.20-1.00); Monocytes % (A) 5.9 %; NRBC Per 100 WBC 0 /100 WBCS (0.0-0.0); Neutrophils # (A) 8.41 X 10*3/uL (1.80-7.70); Neutrophils % (A) 80.1 %; Platelet Count 256 X 10*3/uL (140-440); RBC 3.57 X 10*6/uL (4.40-5.60); RDW 15.3 % (11.5-14.5)
[2021-05-21 17:04] LABS: Glucose,Whole Blood 86 mg/dL (75-99)
[2021-05-21 20:37] LABS: Glucose,Whole Blood 84 mg/dL (75-99)
[2021-05-21] MEDS: traMADol 50 MG TAB PO PRN (21:07)
--- NOTE | 2021-05-21 23:15 | P.PN ---
Subjective Progress Note Date: 05/20/21 This is a pleasant 80-year-old male who was recently admitted with abdominal pain and discomfort with constipation and patient also found to be dehydrated and being closely monitored. Patient underwent CT abdomen and pelvis which showed marked dilation of several small bowel loops including the stomach with an abrupt caliber change within the mid abdomen. Centrally to the left with a normal filling distal loops and findings are felt to be highly suspicious for high-grade small bowel obstruction with internal hernia or adhesions not entirely excluded. Appendix appeared normal. Patient to continue with NG tube and nothing by mouth at this time. Cardiology consulted for surgical clearance which is currently pending. Patient denies any chest pain or shortness of breath. Patient is afebrile. Patient also continued on IV Protonix along with Flagyl an appropriate home medications have been resumed. 05/12/2021 Patient is seen and evaluated in follow-up continues to be closely monitored with multiple medical consultations following. Patient is status post exploratory laparotomy and underwent removal of intraperitoneal mesh, extensive lysis of adhesions, small bowel resection and is being closely monitored. Patient is in the ICU and is recently intubated and currently being weaned off sedation for possible extubation. Patient was also noted to have A. fib with RVR during surgery and cardiology is following. Patient with indwelling Lange catheter and noted hematuria and urology has been consulted. Urine culture finalized showing apparent skin and/or genital andreas. Patient is maintained on IV antibiotics in the form of Flagyl and will continue. On exam patient is awake and following the commands appropriately but somewhat confused per nursing staff. Chest x-ray this morning shows left upper chest wall dual-lead pacemaker with persistent elevation of the right hemidiaphragm and small bilateral pleural effusions unchanged. 05/15/2021 Patient is seen and evaluated in follow-up this morning with at the bedside currently sitting up in the chair. NG tube is being removed and patient is being started on low-sodium clear liquid diet per surgery recommendations. Conrado bhatt medical consultations following and patient is status post exploratory laparotomy. Patient continues on IV antibiotics in the form of Flagyl. Patient being transitioned to oral anticoagulant along with oral Lopressor and patient is off IV amiodarone. Incentive spirometer at the bedside and encourage the patient to continue using at least 10 times every hour while awake. Urology has evaluated the patient recommending trial voiding tomorrow and monitoring for any retention and/or further hematuria. PT/OT following. Patient reports to passing gas although no reports bowel movements as of yet. Patient denies chest pain, shortness of breath, or palpitations. Patient is afebrile. White blood count currently normalized at 10.5. 05/16/2021 Patient is seen in follow up today and reports to feeling some mild abdominal pain and passing minimal gas with no bowel movement. General surgery following and continues on clear liquids. Patient had lange catheter removed today and is due to void. Urology following for hematuria. Reports to less blood noted although continues to be present. Patient is on IV flagyl and surgical site noted to have some drainage. Patient reports to abdominal pain but denies nausea or vomiting. Patient denies chest pain or shortness of breath. Patient is afebrile. PT/OT working with the patient and patient is weak. 05/17/2021 Patient is seen today and family at the bedside. Per nursing staff patient continues with urinary retention. Urology following. Patient had lange removed yesterday. Patient also more distended today and very minimal bowel sounds noted. Patient denies bowel movement. Patient is more confused as well today. Patient with left upper extremity swelling and doppler ordered. Patient to continue NPO at this time per surgery recommendations. Patient denies chest pain or shortness of breath. Patient is afebrile. Patient continues to be extremely weak and PT/OT following. Sodium is 145 today and will switch to D5 in Water. 05/18/2021 Patient is seen today and is awake and alert although continues with confusion at times. Patient per nursing staff was having continued urinary retention and difficulty urinating and normally uses Flomax and finasteride as a daily medication and will resume an indwelling Lange catheter has been reinserted and will continue for now for retention and strict intake and output monitoring. Patient also continues to be nothing by mouth for now with the possibility of starting clears although TPN is being initiated at this time. Patient with abdominal distention which appears to be slightly improved with sluggish bowel sounds noted. Patient reports the passing gas but no bowel movement as of yet. Recommend PT/OT therapy daily as patient continues to be weak. Patient's sodium was mildly elevated and slowly trending down and will continue D5 in water and repeat labs ordered. 05/19/2021 Patient is seen and evaluated today being closely monitored with urology and Gen. surgery following. Patient is lethargic although arousable much more alert and responding appropriately today. Patient reports the passing gas and was able to have a bowel movement today. Patient currently resting comfortably on room air and denies any chest pain or shortness of breath. Encourage the pat ient to continue elevating left upper extremity as there was swelling noted. Patient tolerating clear liquids per general surgery recommendations and continues on TPN. Potassium mildly low at 3.4 and magnesium is 1.8. Will replace per protocol and repeat labs. Recommend to continue with indwelling Lange catheter as patient was retaining and also to continue to monitor intake and output closely. 05/20/2021 Patient is currently resting in bed. Awake alert and oriented x3. Feels fatigued. Able to infarct creatinine PT. Denied any complaints of abdominal pain. Able to pass flatus. No cough or sputum production. No fever no chills. No chest pain or shortness of breath. Diet advanced to regular diet. will try to remove Lange catheter and increase ambulation. Laboratory data showed magnesium 1.9 and phosphorus 2.3, WBC 11.6 hemoglobin 13.1 and platelets 234 sodium 132 potassium 4.0 chloride 107 bicarb is 21 BUN 69 creatinine 0.59 Current medications reviewed. Objective - Vital Signs Vital signs: Vital Signs Temp 97.9 F 05/20/21 12:11 Pulse 76 05/20/21 12:11 Resp 16 05/20/21 12:11 BP 115/75 05/20/21 12:11 Pulse Ox 96 05/20/21 12:11 Intake & Output 05/19/21 05/20/21 05/20/21 18:59 06:59 18:59 Intake Total 570 1036.9704 Output Total 450 2300 500 Balance 120 -1263.0296 -500 Weight 97.8 kg 97.8 kg Intake: Intake, IV Titration 1036.9704 Amount Sodium Phosphate 15 mmol 1036.9704 Potassium Acetate 40 meq Magnesium Sulfate Syg 8 meq Calcium Gluconate 1 gm In Amino Acids 5 %/ Dextrose 20 % 1,000 ml @ 95 mls/hr IV .BY DURATION ILYA Rx#:[id number] Oral 570 Output: Urine 450 2300 500 Other: Voiding Method Indwelling Catheter Indwelling Catheter # Bowel Movements 1 1 1 ABP, PAP, CO, CI - Last Documented Arterial Blood Pressure 111/51 - Exam PHYSICAL EXAMINATION: GENERAL: The patient is awake, alert and oriented 2, get side tracked on co nversation and distracted easily and tends to ramble easily redirected. Well developed, well nourished. HEENT: Pupils are round and equally reacting to light. EOMI. no scleral icterus. No conjunctival pallor. Normocephalic, atraumatic. No pharyngeal erythema. No thyromegaly. CARDIOVASCULAR: S1 and S2 muffled PULMONARY: diminished breath sounds bilaterally with no wheezing or rhonchi noted. ABDOMEN: soft. Less tender, less distended, sluggish bowel sounds. surgical dressing with some mild drainage noted. No palpable organomegaly. Abdominal binder noted. MUSCULOSKELETAL: No joint swelling or deformity. EXTREMITIES: No cyanosis, clubbing, or pedal edema. NEUROLOGICAL: Gross neurological examination did not reveal any focal deficits. diffusely weak SKIN: No rashes. - Labs CBC & Chem 7: 05/21/21 06:47 05/21/21 06:47 Labs: Abnormal Lab Results - Last 24 Hours (Table) 05/19/21 05/19/21 05/19/21 Range/Units 14:49 17:59 19:21 WBC (3.8-10.6) k/uL RBC 3.93 L (4.30-5.90) m/uL Hgb 12.4 L (13.0-17.5) gm/dL MCV 100.4 H (80.0-100.0) fL Neutrophils # (1.3-7.7) k/uL Lymphocytes # 0.8 L (1.0-4.8) k/uL Sodium (137-145) mmol/L Carbon Dioxide (22-30) mmol/L Creatinine (0.66-1.25) mg/dL Glucose (74-99) mg/dL POC Glucose (mg/dL) 155 H 171 H (75-99) mg/dL Calcium (8.4-10.2) mg/dL Phosphorus (2.5-4.5) mg/dL Total Protein (6.3-8.2) g/dL Albumin (3.5-5.0) g/dL 05/20/21 05/20/21 05/20/21 Range/Units 00:36 04:27 04:27 WBC 11.6 H (3.8-10.6) k/uL RBC 4.08 L (4.30-5.90) m/uL Hgb (13.0-17.5) gm/dL MCV 101.8 H (80.0-100.0) fL Neutrophils # 10.0 H (1.3-7.7) k/uL Lymphocytes # (1.0-4.8) k/uL Sodium 132 L (137-145) mmol/L Carbon Dioxide 21 L (22-30) mmol/L Creatinine 0.59 L (0.66-1.25) mg/dL Glucose 161 H (74-99) mg/dL POC Glucose (mg/dL) 189 H (75-99) mg/dL Calcium 7.1 L (8.4-10.2) mg/dL Phosphorus 2.4 L (2.5-4.5) mg/dL Total Protein 4.7 L (6.3-8.2) g/dL Albumin 2.2 L (3.5-5.0) g/dL 05/20/21 05/20/21 05/20/21 Range/Units 07:26 11:31 12:36 WBC (3.8-10.6) k/uL RBC (4.30-5.90) m/uL Hgb (13.0-17.5) gm/dL MCV (80.0-100.0) fL Neutrophils # (1.3-7.7) k/uL Lymphocytes # (1.0-4.8) k/uL Sodium (137-145) mmol/L Carbon Dioxide (22-30) mmol/L Creatinine (0.66-1.25) mg/dL Glucose (74-99) mg/dL POC Glucose (mg/dL) 152 H 177 H (75-99) mg/dL Calcium (8.4-10.2) mg/dL Phosphorus 2.3 L (2.5-4.5) mg/dL Total Protein (6.3-8.2) g/dL Albumin (3.5-5.0) g/dL Assessment and Plan Assessment: Assessment: High-grade small bowel obstruction Status post exploratory laparotomy with removal of intraperitoneal mesh, lysis of extensive lesions and small bowel resection Atrial fibrillation with RVR during surgery, currently sinus rhythm Altered mental status, confusion most probably toxic encephalopathy secondary to narcotic use Hematuria status post indwelling Lange catheter insertion Urinary retention requiring reinsertion of indwelling Lange catheter on 05/17/2021 Dehydration with acute renal failure, improving Elevated white blood count, improved Hypokalemia Paroxysmal atrial fibrillation History of sick sinus syndrome with pacemaker implantation Valvular heart disease Hyperlipidemia History of hypothyroidism Chronic obstructive pulmonary disease, not an exacerbation GI prophylaxis DVT prophylaxis Full code Plan: Recommend to continue with current medications and symptomatic management. Patient is currently sitting up in bed. Patient reports to passing large amounts of gas and was able to have a bowel movement . Patient is continued on TPN along with clear liquids and tolerating with no reports of nausea or vomiting noted. started on regular diet. taperoff TPN. Abdomen is less distended today. Patient with continued drainage around the surgical site although looks better. trial void.. Finasteride and Flomax resumed. Urology following.. Anticoagulant resumed. Incentive spirometer at the bedside and encouraged the p atient continue using at least 10 times every hour while awake and also increased activity as tolerated. Physical therapy following the patient. Plan per patient is to go home once discharged. Discussed with and patient about possible ECF and patient is extremely weak and will be difficult to safely manage at home. suggested [facility] although still thinking about discharge planning. Will follow up. Will repeat a.m. labs . Due to multiple complex medical issues, prognosis is guarded. Time with Patient: Greater than 30
--- NOTE | 2021-05-21 23:28 | P.PN ---
Subjective Progress Note Date: 05/21/21 This is a pleasant 80-year-old male who was recently admitted with abdominal pain and discomfort with constipation and patient also found to be dehydrated and being closely monitored. Patient underwent CT abdomen and pelvis which showed marked dilation of several small bowel loops including the stomach with an abrupt caliber change within the mid abdomen. Centrally to the left with a normal filling distal loops and findings are felt to be highly suspicious for high-grade small bowel obstruction with internal hernia or adhesions not entirely excluded. Appendix appeared normal. Patient to continue with NG tube and nothing by mouth at this time. Cardiology consulted for surgical clearance which is currently pending. Patient denies any chest pain or shortness of breath. Patient is afebrile. Patient also continued on IV Protonix along with Flagyl an appropriate home medications have been resumed. 05/12/2021 Patient is seen and evaluated in follow-up continues to be closely monitored with multiple medical consultations following. Patient is status post exploratory laparotomy and underwent removal of intraperitoneal mesh, extensive lysis of adhesions, small bowel resection and is being closely monitored. Patient is in the ICU and is recently intubated and currently being weaned off sedation for possible extubation. Patient was also noted to have A. fib with RVR during surgery and cardiology is following. Patient with indwelling Lange catheter and noted hematuria and urology has been consulted. Urine culture finalized showing apparent skin and/or genital andreas. Patient is maintained on IV antibiotics in the form of Flagyl and will continue. On exam patient is awake and following the commands appropriately but somewhat confused per nursing staff. Chest x-ray this morning shows left upper chest wall dual-lead pacemaker with persistent elevation of the right hemidiaphragm and small bilateral pleural effusions unchanged. 05/15/2021 Patient is seen and evaluated in follow-up this morning with at the bedside currently sitting up in the chair. NG tube is being removed and patient is being started on low-sodium clear liquid diet per surgery recommendations. Conrado bhatt medical consultations following and patient is status post exploratory laparotomy. Patient continues on IV antibiotics in the form of Flagyl. Patient being transitioned to oral anticoagulant along with oral Lopressor and patient is off IV amiodarone. Incentive spirometer at the bedside and encourage the patient to continue using at least 10 times every hour while awake. Urology has evaluated the patient recommending trial voiding tomorrow and monitoring for any retention and/or further hematuria. PT/OT following. Patient reports to passing gas although no reports bowel movements as of yet. Patient denies chest pain, shortness of breath, or palpitations. Patient is afebrile. White blood count currently normalized at 10.5. 05/16/2021 Patient is seen in follow up today and reports to feeling some mild abdominal pain and passing minimal gas with no bowel movement. General surgery following and continues on clear liquids. Patient had lange catheter removed today and is due to void. Urology following for hematuria. Reports to less blood noted although continues to be present. Patient is on IV flagyl and surgical site noted to have some drainage. Patient reports to abdominal pain but denies nausea or vomiting. Patient denies chest pain or shortness of breath. Patient is afebrile. PT/OT working with the patient and patient is weak. 05/17/2021 Patient is seen today and family at the bedside. Per nursing staff patient continues with urinary retention. Urology following. Patient had lange removed yesterday. Patient also more distended today and very minimal bowel sounds noted. Patient denies bowel movement. Patient is more confused as well today. Patient with left upper extremity swelling and doppler ordered. Patient to continue NPO at this time per surgery recommendations. Patient denies chest pain or shortness of breath. Patient is afebrile. Patient continues to be extremely weak and PT/OT following. Sodium is 145 today and will switch to D5 in Water. 05/18/2021 Patient is seen today and is awake and alert although continues with confusion at times. Patient per nursing staff was having continued urinary retention and difficulty urinating and normally uses Flomax and finasteride as a daily medication and will resume an indwelling Lange catheter has been reinserted and will continue for now for retention and strict intake and output monitoring. Patient also continues to be nothing by mouth for now with the possibility of starting clears although TPN is being initiated at this time. Patient with abdominal distention which appears to be slightly improved with sluggish bowel sounds noted. Patient reports the passing gas but no bowel movement as of yet. Recommend PT/OT therapy daily as patient continues to be weak. Patient's sodium was mildly elevated and slowly trending down and will continue D5 in water and repeat labs ordered. 05/19/2021 Patient is seen and evaluated today being closely monitored with urology and Gen. surgery following. Patient is lethargic although arousable much more alert and responding appropriately today. Patient reports the passing gas and was able to have a bowel movement today. Patient currently resting comfortably on room air and denies any chest pain or shortness of breath. Encourage the pat ient to continue elevating left upper extremity as there was swelling noted. Patient tolerating clear liquids per general surgery recommendations and continues on TPN. Potassium mildly low at 3.4 and magnesium is 1.8. Will replace per protocol and repeat labs. Recommend to continue with indwelling Lange catheter as patient was retaining and also to continue to monitor intake and output closely. 05/20/2021 Patient is currently resting in bed. Awake alert and oriented x3. Feels fatigued. Able to infarct creatinine PT. Denied any complaints of abdominal pain. Able to pass flatus. No cough or sputum production. No fever no chills. No chest pain or shortness of breath. Diet advanced to regular diet. will try to remove Lange catheter and increase ambulation. Laboratory data showed magnesium 1.9 and phosphorus 2.3, WBC 11.6 hemoglobin 13.1 and platelets 234 sodium 132 potassium 4.0 chloride 107 bicarb is 21 BUN 69 creatinine 0.59 05/21/2021 Patient is currently resting in the bed comfortably. Awake alert and oriented x3. No complaints of abdominal pain. No nausea vomiting or diarrhea. Tolerating regular diet. TPN is being tapered off. Patient has been afebrile. No chest pain or shortness of breath. No dysuria or hematuria. Laboratory data showed WBC 10.4 hemoglobin 11.3 and platelets 256 sodium 135 potassium 3.7 chloride 109 bicarb is 25 BUN 19 and creatinine 0.56 and blood sugar is 143 albumin 2.0 Patient is being current on Flomax and Proscar. Continued on duo nebs. Follow- up CBC and BMP tomorrow and anticipate discharge to rehab. Current medications reviewed. Objective - Vital Signs Vital signs: Vital Signs Temp 98.0 F 05/21/21 11:08 Pulse 87 05/21/21 11:08 Resp 16 05/21/21 11:08 BP 123/85 05/21/21 11:08 Pulse Ox 96 05/21/21 11:08 Intake & Output 03/19/22 03/20/22 03/20/22 18:59 06:59 18:59 Intake Total 2176.9704 1140 Output Total 1200 2600 2297 Balance 976.9704 -1460 -2297 Weight 97.8 kg Intake: Intake, IV Titration 2176.9704 1140 Amount Mvi, Adult No.4 with Vit 1140 1140 K 10 ml Trace (Conc-1Ml/ Dose) 1 ml Sodium Phosphate 15 mmol Potassium Acetate 40 meq Magnesium Sulfate Syg 8 meq Calcium Gluconate 1 gm In Amino Acids 5 %/ Dextrose 20 % 1,000 ml @ 95 mls/hr IV .BY DURATION ILYA Rx#:[id number] Sodium Phosphate 15 mmol 1036.9704 Potassium Acetate 40 meq Magnesium Sulfate Syg 8 meq Calcium Gluconate 1 gm In Amino Acids 5 %/ Dextrose 20 % 1,000 ml @ 95 mls/hr IV .BY DURATION ILYA Rx#:[id number] Output: Urine 1200 2600 1850 Straight 100 1300 Post Void Residual 447 Other: Voiding Method Indwelling Catheter Urinal Urinal # Bowel Movements 2 1 ABP, PAP, CO, CI - Last Documented Arterial Blood Pressure 111/51 - Exam PHYSICAL EXAMINATION: GENERAL: The patient is awake, alert and oriented 2, get side tracked on conversation and distracted easily and tends to ramble easily redirected. Well developed, well nourished. HEENT: Pupils are round and equally reacting to light. EOMI. no scleral icterus. No conjunctival pallor. Normocephalic, atraumatic. No pharyngeal erythema. No thyromegaly. CARDIOVASCULAR: S1 and S2 muffled PULMONARY: diminished breath sounds bilaterally with no wheezing or rhonchi no brittany. ABDOMEN: soft. Less tender, less distended, sluggish bowel sounds. surgical dressing with some mild drainage noted. No palpable organomegaly. Abdominal binder noted. MUSCULOSKELETAL: No joint swelling or deformity. EXTREMITIES: No cyanosis, clubbing, or pedal edema. NEUROLOGICAL: Gross neurological examination did not reveal any focal deficits. diffusely weak SKIN: No rashes. - Labs CBC & Chem 7: 05/21/21 06:47 05/21/21 06:47 Labs: Abnormal Lab Results - Last 24 Hours (Table) 05/21/21 05/21/21 05/21/21 Range/Units 06:22 06:47 06:47 WBC 10.50 H (4.50-10.00) X 10*3/uL RBC 3.57 L (4.40-5.60) X 10*6/uL Hgb 11.3 L (13.0-17.0) g/dL Hct 35.3 L (39.6-50.0) % MCV 98.9 H (80.0-97.0) fL RDW 15.3 H (11.5-14.5) % Immature Gran # 0.38 H (0.00-0.04) X 10*3/uL Neutrophils # 8.41 H (1.80-7.70) X 10*3/uL Lymphocytes # 0.87 L (0.90-5.00) X 10*3/uL Sodium 135 L (137-145) mmol/L Chloride 109 H (98-107) mmol/L Creatinine 0.56 L (0.66-1.25) mg/dL Glucose 143 H (74-99) mg/dL POC Glucose (mg/dL) 179 H (75-99) mg/dL Calcium 7.0 L (8.4-10.2) mg/dL Total Protein 4.3 L (6.3-8.2) g/dL Albumin 2.0 L (3.5-5.0) g/dL 05/21/21 05/21/21 Range/Units 07:09 11:11 WBC (4.50-10.00) X 10*3/uL RBC (4.40-5.60) X 10*6/uL Hgb (13.0-17.0) g/dL Hct (39.6-50.0) % MCV (80.0-97.0) fL RDW (11.5-14.5) % Immature Gran # (0.00-0.04) X 10*3/uL Neutrophils # (1.80-7.70) X 10*3/uL Lymphocytes # (0.90-5.00) X 10*3/uL Sodium (137-145) mmol/L Chloride (98-107) mmol/L Creatinine (0.66-1.25) mg/dL Glucose (74-99) mg/dL POC Glucose (mg/dL) 155 H 149 H (75-99) mg/dL Calcium (8.4-10.2) mg/dL Total Protein (6.3-8.2) g/dL Albumin (3.5-5.0) g/dL Assessment and Plan Assessment: Assessment: High-grade small bowel obstruction Status post exploratory laparotomy with removal of intraperitoneal mesh, lysis of extensive lesions and small bowel resection Atrial fibrillation with RVR during surgery, currently sinus rhythm Altered mental status, confusion most probably toxic encephalopathy secondary to narcotic use Hematuria status post indwelling Lange catheter insertion Urinary retention requiring reinsertion of indwelling Lange catheter on 05/17/2021 Dehydration with acute renal failure, improving Elevated white blood count, improved Hypokalemia Paroxysmal atrial fibrillation History of sick sinus syndrome with pacemaker implantation Valvular heart disease Hyperlipidemia History of hypothyroidism Chronic obstructive pulmonary disease, not an exacerbation GI prophylaxis DVT prophylaxis Full code Plan: Recommend to continue with current medications and symptomatic management. Patient is currently sitting up in bed. Patient reports to passing large amounts of gas and was able to have a bowel movement . Patient is continued on TPN along with clear liquids and tolerating with no reports of nausea or vomiting noted. started on regular diet. taperoff TPN. Abdomen is less distended today. Patient with continued drainage around the surgical site although looks better. trial void.. Finasteride and Flomax resumed. Urology following.. Anticoagulant resumed. Incentive spirometer at the bedside and encouraged the patient continue using at least 10 times every hour while awake and also increased activity as tolerated. Physical therapy following the patient. Plan per patient is to go home once discharged. Discussed with and patient about possible ECF and patient is extremely weak and will be difficult to safely manage at home. suggested [facility] although still thinking about discharge planning. Will follow up. Will repeat a.m. labs . Due to multiple complex medical issues, prognosis is guarded. Time with Patient: Greater than 30
[2021-05-22] MEDS: LEVOTHYROXINE 50 MCG TAB PO SCH (06:07)
[2021-05-22 06:59] LABS: ALT 81 U/L (4-49); AST 84 U/L (17-59); African American GFR (CKD) >90 (>60 ml/min/1.73 sqM); Albumin/Globulin Ratio 0.9; Alkaline Phosphatase 77 U/L (38-126); Anion Gap -1 mmol/L; Blood Urea Nitrogen 16 mg/dL (9-20); Calcium 7.1 mg/dL (8.4-10.2); Carbon Dioxide 26 mmol/L (22-30); Chloride 110 mmol/L (98-107); Globulin 2.3 g/dL; Glucose 83 mg/dL (74-99); Magnesium 1.9 mg/dL (1.6-2.3); Non-African American GFR(CKD) >90 (>60 ml/min/1.73 sqM); Phosphorus 3.1 mg/dL (2.5-4.5); Potassium 4.3 mmol/L (3.5-5.1); Sodium 135 mmol/L (137-145); Total Bilirubin 0.8 mg/dL (0.2-1.3); Total Protein 4.3 g/dL (6.3-8.2)
[2021-05-22 07:25] LABS: Glucose,Whole Blood 90 mg/dL (75-99)
[2021-05-22] MEDS: TAMSULOSIN 0.4 MG CAP.ER.24H PO SCH ×2 (08:18→20:39)
[2021-05-22] MEDS: APIXABAN 5 MG TAB PO SCH ×2 (08:18→20:39)
[2021-05-22] MEDS: PANTOPRAZOLE 40 MG TABLET PO SCH (08:19)
[2021-05-22] MEDS: METOPROLOL TARTRATE 25 MG TAB PO SCH ×2 (08:19→20:39)
[2021-05-22] MEDS: FINASTERIDE 5 MG TAB PO SCH (08:19)
[2021-05-22 09:04] LABS: Basophils # (A) 0.05 X 10*3/uL (0.00-0.10); Basophils % (A) 0.5 %; Eosinophils # (A) 0.18 X 10*3/uL (0.04-0.35); Eosinophils % (A) 1.8 %; HCT 36.8 % (39.6-50.0); HGB 11.7 g/dL (13.0-17.0); Immature Grans, Automated 2.8 %; Lymphocytes # (A) 1.13 X 10*3/uL (0.90-5.00); Lymphocytes % (A) 11.2 %; MCH 31.7 pg (27.0-32.0); MCHC 31.8 g/dL (32.0-37.0); MCV 99.7 fL (80.0-97.0); Mean Platelet Volume 10.2 fL (9.5-12.2); Monocytes # (A) 0.63 X 10*3/uL (0.20-1.00); Monocytes % (A) 6.2 %; NRBC Per 100 WBC 0 /100 WBCS (0.0-0.0); Neutrophils # (A) 7.83 X 10*3/uL (1.80-7.70); Neutrophils % (A) 77.5 %; Platelet Count 286 X 10*3/uL (140-440); RBC 3.69 X 10*6/uL (4.40-5.60); RDW 15.6 % (11.5-14.5)
--- NOTE | 2021-05-22 12:03 | P.PN ---
Subjective Progress Note Date: 05/22/21 CHIEF COMPLAINT: Small bowel obstruction HISTORY OF PRESENT ILLNESS: Patient is postop day #12 status post exploratory laparotomy, removal of intraperitoneal mesh, lysis of extensive adhesions and small bowel resection for small bowel obstruction, extensive adhesions, intraperitoneal mesh. Patient reports that his abdominal pain is doing better. He is currently on a regular diet and was weaned off the TPN over the weekend. He complains more of back pain. He is having bowel movements and flatus. Denies any nausea or vomiting. Afebrile. WBC 10.5 down to 10.1 hemoglobin 11.7. Minimally elevated LFTs Patient seen and examined with Dr. thornton PHYSICAL EXAM: VITAL SIGNS: Reviewed. GENERAL: Intubated. HEENT: Moist buccal mucosa. Head is atraumatic, normocephalic. ABDOMEN: Soft. Decreased abdominal distention. Incision site with serosanguineous drainage at the umbilicus and distally. Erythema around the distal aspect of the incision and at the top of the incision. Neurology: Patient alert and orientated with episodes of confusion ASSESSMENT: 1. Status post exploratory laparotomy, removal of intraperitoneal mesh, lysis of extensive adhesions and small bowel resection for small bowel obstruction, extensive adhesions and intraperitoneal mesh 2. A. fib with RVR during surgery PLAN: -Continue regular diet -Continue to monitor incision. We'll have nursing staff clean incision today. -Continue pain medication as needed -Encourage patient to ambulate -Encourage patient to use incentive spirometer -Continue GI prophylaxis and DVT prophylaxis [facility] Physician Keying Machine Operator note has been reviewed by physician. Signing provider agrees with the documented findings, assessment, and plan of care. Objective - Vital Signs Vital signs: Vital Signs Temp 97.9 F 05/22/21 04:53 Pulse 85 05/22/21 04:53 Resp 17 05/22/21 04:53 BP 114/70 05/22/21 04:53 Pulse Ox 96 05/22/21 04:53 Intake & Output 05/21/21 05/22/21 05/22/21 18:59 06:59 18:59 Intake Total 240 Output Total 2297 900 Balance -2750 -974 Intake: Oral 240 Output: Urine 1850 900 Post Void Residual 447 Other: Voiding Method Urinal Indwelling Catheter Indwelling Catheter # Bowel Movements 1 1 ABP, PAP, CO, CI - Last Documented Arterial Blood Pressure 111/51 - Labs CBC & Chem 7: 05/22/21 06:19 05/22/21 06:19 Labs: Abnormal Lab Results - Last 24 Hours (Table) 05/21/21 05/22/21 05/22/21 Range/Units 06:47 06:19 06:19 WBC 10.50 H 10.10 H (4.50-10.00) X 10*3/uL RBC 3.57 L 3.69 L (4.40-5.60) X 10*6/uL Hgb 11.3 L 11.7 L (13.0-17.0) g/dL Hct 35.3 L 36.8 L (39.6-50.0) % MCV 98.9 H 99.7 H (80.0-97.0) fL MCHC 31.8 L (32.0-37.0) g/dL RDW 15.3 H 15.6 H (11.5-14.5) % Immature Gran # 0.38 H 0.28 H (0.00-0.04) X 10*3/uL Neutrophils # 8.41 H 7.83 H (1.80-7.70) X 10*3/uL Lymphocytes # 0.87 L (0.90-5.00) X 10*3/uL Sodium 135 L (137-145) mmol/L Chloride 110 H (98-107) mmol/L Creatinine 0.60 L (0.66-1.25) mg/dL Calcium 7.1 L (8.4-10.2) mg/dL AST 84 H (17-59) U/L ALT 81 H (4-49) U/L Total Protein 4.3 L (6.3-8.2) g/dL Albumin 2.0 L (3.5-5.0) g/dL
[2021-05-22 12:30] LABS: Glucose,Whole Blood 92 mg/dL (75-99)
[2021-05-22] MEDS: traMADol 50 MG TAB PO PRN ×2 (15:28→20:39)
[2021-05-22 17:21] LABS: Glucose,Whole Blood 97 mg/dL (75-99)
[2021-05-22 20:17] LABS: Glucose,Whole Blood 94 mg/dL (75-99)
--- NOTE | 2021-05-23 03:01 | P.PN ---
Subjective Progress Note Date: 05/22/21 This is a pleasant 80-year-old male who was recently admitted with abdominal pain and discomfort with constipation and patient also found to be dehydrated and being closely monitored. Patient underwent CT abdomen and pelvis which showed marked dilation of several small bowel loops including the stomach with an abrupt caliber change within the mid abdomen. Centrally to the left with a normal filling distal loops and findings are felt to be highly suspicious for high-grade small bowel obstruction with internal hernia or adhesions not entirely excluded. Appendix appeared normal. Patient to continue with NG tube and nothing by mouth at this time. Cardiology consulted for surgical clearance which is currently pending. Patient denies any chest pain or shortness of breath. Patient is afebrile. Patient also continued on IV Protonix along with Flagyl an appropriate home medications have been resumed. 05/12/2021 Patient is seen and evaluated in follow-up continues to be closely monitored wi th multiple medical consultations following. Patient is status post exploratory laparotomy and underwent removal of intraperitoneal mesh, extensive lysis of adhesions, small bowel resection and is being closely monitored. Patient is in the ICU and is recently intubated and currently being weaned off sedation for possible extubation. Patient was also noted to have A. fib with RVR during surgery and cardiology is following. Patient with indwelling Lange catheter and noted hematuria and urology has been consulted. Urine culture finalized showing apparent skin and/or genital andreas. Patient is maintained on IV antibiotics in the form of Flagyl and will continue. On exam patient is awake and following the commands appropriately but somewhat confused per nursing staff. Chest x-ray this morning shows left upper chest wall dual-lead pacemaker with persistent elevation of the right hemidiaphragm and small bilateral pleural effusions unchanged. 05/15/2021 Patient is seen and evaluated in follow-up this morning with at the bedside currently sitting up in the chair. NG tube is being removed and patient is being started on low-sodium clear liquid diet per surgery recommendations. Multiple medical consultations following and patient is status post exploratory laparotomy. Patient continues on IV antibiotics in the form of Flagyl. Patient being transitioned to oral anticoagulant along with oral Lopressor and patient is off IV amiodarone. Incentive spirometer at the bedside and encourage the patient to continue using at least 10 times every hour while awake. Urology has evaluated the patient recommending trial voiding tomorrow and monitoring for any retention and/or further hematuria. PT/OT following. Patient reports to passing gas although no reports bowel movements as of yet. Patient denies chest pain, shortness of breath, or palpitations. Patient is afebrile. White blood count currently normalized at 10.5. 05/16/2021 Patient is seen in follow up today and reports to feeling some mild abdominal pain and passing minimal gas with no bowel movement. General surgery following and continues on clear liquids. Patient had lange catheter removed today and is due to void. Urology following for hematuria. Reports to less blood noted al though continues to be present. Patient is on IV flagyl and surgical site noted to have some drainage. Patient reports to abdominal pain but denies nausea or vomiting. Patient denies chest pain or shortness of breath. Patient is afebrile. PT/OT working with the patient and patient is weak. 05/17/2021 Patient is seen today and family at the bedside. Per nursing staff patient continues with urinary retention. Urology following. Patient had lange removed yesterday. Patient also more distended today and very minimal bowel sounds noted. Patient denies bowel movement. Patient is more confused as well today. Patient with left upper extremity swelling and doppler ordered. Patient to continue NPO at this time per surgery recommendations. Patient denies chest pain or shortness of breath. Patient is afebrile. Patient continues to be extremely weak and PT/OT following. Sodium is 145 today and will switch to D5 in Water. 05/18/2021 Patient is seen today and is awake and alert although continues with confusion at times. Patient per nursing staff was having continued urinary retention and difficulty urinating and normally uses Flomax and finasteride as a daily medication and will resume an indwelling Lange catheter has been reinserted and will continue for now for retention and strict intake and output monitoring. Patient also continues to be nothing by mouth for now with the possibility of starting clears although TPN is being initiated at this time. Patient with abdominal distention which appears to be slightly improved with sluggish bowel sounds noted. Patient reports the passing gas but no bowel movement as of yet. Recommend PT/OT therapy daily as patient continues to be weak. Patient's sodium was mildly elevated and slowly trending down and will continue D5 in water and repeat labs ordered. 05/19/2021 Patient is seen and evaluated today being closely monitored with urology and Gen. surgery following. Patient is lethargic although arousable much more alert and responding appropriately today. Patient reports the passing gas and was able to have a bowel movement today. Patient currently resting comfortably on room air and denies any chest pain or shortness of breath. Encourage the patient to continue elevating left upper extremity as there was swelling noted. Patient tolerating clear liquids per general surgery recommendations and continues on TPN. Potassium mildly low at 3.4 and magnesium is 1.8. Will replace per protocol and repeat labs. Recommend to continue with indwelling Lange catheter as patient was retaining and also to continue to monitor intake and output closely. 05/22/2021 Patient is seen in follow up this morning with at the bedside. Multiple medical consultations following including surgery. TPN has been weaned and patient tolerating regular diet. Patient continues with some urinary retention and recommend to continue with indwelling lange catheter and follow up outpatient. Patient continues to work with physical therapy daily and continues with weakness. Discussed with the and will plan for ECF. Case management following. Encouraged increased activity as tolerated. Patient denies chest pain or shortness of breath. Patient is afebrile. No reports of nausea or vomiting noted. Review of systems: Constitutional: reports of fatigue, no reports of fever, or chills Cardiovascular: No reports of chest pain or palpitations Respiratory: No reports of shortness of breath or cough GI: No reports of nausea, vomiting, reports passing gas and having bowel movement : No reports of dysuria, currently with an indwelling Lange catheter Neurovascular: reports of generalized weakness All medications have been reviewed Active Medications Albuterol/Ipratropium (Ipratropium-Albuterol 3 Ml Neb) 3 ml INHALATION RT-TID PRN PRN Reason: Shortness Of Breath Or Wheezing Last Admin: 05/18/21 18:11 Dose: 3 ml Documented by: Apixaban (Apixaban 5 Mg Tab) 5 mg PO BID [facility]; Protocol Last Admin: 05/22/21 20:39 Dose: 5 mg Documented by: Finasteride (Finasteride 5 Mg Tab) 5 mg PO DAILY [facility] Last Admin: 05/22/21 08:19 Dose: 5 mg Documented by: Hydromorphone HCl (Hydromorphone 0.5 Mg/0.5 Ml Syringe) 0.5 mg IVP Q3HR PRN PRN Reason: Moderate Pain Last Admin: 05/17/21 03:33 Dose: 0.5 mg Documented by: Levothyroxine Sodium (Levothyroxine 50 Mcg Tab) 50 mcg PO DAILY@0630 [facility] Last Admin: 05/22/21 06:07 Dose: 50 mcg Documented by: Melatonin (Melatonin 5 Mg Tablet) 5 mg PO HS PRN PRN Reason: Insomnia Last Admin: 05/19/21 22:52 Dose: 5 mg Documented by: Metoprolol Tartrate (Metoprolol Tartrate 25 Mg Tab) 25 mg PO BID [facility] Last Admin: 05/22/21 20:39 Dose: 25 mg Documented by: Miscellaneous Information (Potassium Replacement Protocol 1 Each Misc) 1 each MISCELLANE DAILY PRN; Protocol PRN Reason: Per Protocol Pantoprazole Sodium (Pantoprazole 40 Mg Tablet) 40 mg PO AC-BRKFST [facility] Last Admin: 05/22/21 08:19 Dose: 40 mg Documented by: Sodium Chloride (Sodium Chloride 0.9% Flush 10 Ml Syringe) 10 ml IV Q4HR PRN PRN Reason: PICC Line Sodium Chloride (Sodium Chloride 0.9% Flush 10 Ml Syringe) 10 ml IV WEEKLY [facility] Sodium Chloride (Sodium Chloride 0.9% Flush 10 Ml Syringe) 20 ml IV Q4HR PRN PRN Reason: PICC Line Tamsulosin HCl (Tamsulosin 0.4 Mg Cap.Er.24h) 0.4 mg PO BID [facility] Last Admin: 05/22/21 20:39 Dose: 0.4 mg Documented by: Tramadol HCl (Tramadol 50 Mg Tab) 50 mg PO QID PRN PRN Reason: Pain Last Admin: 05/22/21 20:39 Dose: 50 mg Documented by: PHYSICAL EXAMINATION: GENERAL: The patient is awake, alert and oriented 2-3, Well developed, well nourished. HEENT: Pupils are round and equally reacting to light. EOMI. no scleral icterus. No conjunctival pallor. Normocephalic, atraumatic. No pharyngeal erythema. No thyromegaly. CARDIOVASCULAR: S1 and S2 muffled PULMONARY: diminished breath sounds bilaterally with no wheezing or rhonchi noted. ABDOMEN: soft. Less tender, less distended, normoactive bowel sounds. surgical dressing with some mild drainage noted. No palpable organomegaly. Abdominal binder noted. MUSCULOSKELETAL: No joint swelling or deformity. EXTREMITIES: No cyanosis, clubbing, or pedal edema. NEUROLOGICAL: Gross neurological examination did not reveal any focal deficits. diffusely weak SKIN: No rashes. Assessment: High-grade small bowel obstruction Status post exploratory laparotomy with removal of intraperitoneal mesh, lysis of extensive lesions and small bowel resection Atrial fibrillation with RVR during surgery, currently sinus rhythm Altered mental status, confusion most probably toxic encephalopathy secondary to narcotic use, improved Hematuria status post indwelling Lange catheter insertion Urinary retention requiring reinsertion of indwelling Lange catheter on 05/18/19 22, an expected outcome of surgery Dehydration with acute renal failure, improved Elevated white blood count, improved Hypokalemia, resolved Paroxysmal atrial fibrillation History of sick sinus syndrome with pacemaker implantation Valvular heart disease Hyperlipidemia History of hypothyroidism Chronic obstructive pulmonary disease, not an exacerbation GI prophylaxis DVT prophylaxis Full code Plan: Recommend to continue with current medications and symptomatic management. Patient is currently sitting up in chair and per nursing patient was almost complete assist with help getting up. Patient reports to gas and having bowel movements. Patient is continued on regular diet and tolerating with no reports of nausea or vomiting noted. Abdomen is less distended today. Patient with continued drainage around the surgical site although looks better. Nursing staff to cleanse and redress the site today. Recommend to continue with Indwelling Lange catheter as patient was retaining and follow up outpatient. Finasteride and Flomax resumed. Urology following.. Anticoagulant resumed. Incentive spirometer at the bedside and encouraged the patient continue using at least 10 times every hour while awake and also increased activity as tolerated. Physical therapy following the patient. Discussed with and patient again about possible ECF and patient is extremely weak and will be difficult to safely manage at home. suggested Ramana and will follow up with case management. Will follow up. Due to multiple complex medical issues, prognosis is guarded. The impression and plan of care has been dictated by Renu Cantu, nurse practitioner as directed. Dr. Ricardo MD I have performed a history and examination and MDM of this patient, discussed the same with the dictator, and agree with the dictator's assessment and plan as written ,documented as a scribe. Based on total visit time, I have performed more than 50% of the visit. Objective - Vital Signs Vital signs: Vital Signs Temp 97.9 F 05/22/21 04:53 Pulse 85 05/22/21 04:53 Resp 17 05/22/21 04:53 BP 114/70 05/22/21 04:53 Pulse Ox 96 05/22/21 04:53 Intake & Output 05/21/21 05/22/21 05/22/21 18:59 06:59 18:59 Intake Total 240 Output Total 2297 900 Balance -8887 -360 Intake: Oral 240 Output: Urine 1850 900 Post Void Residual 447 Other: Voiding Method Urinal Indwelling Catheter # Bowel Movements 1 1 ABP, PAP, CO, CI - Last Documented Arterial Blood Pressure 111/51 - Labs CBC & Chem 7: 05/22/21 06:19 05/22/21 06:19 Labs: Abnormal Lab Results - Last 24 Hours (Table) 05/21/21 05/21/21 05/22/21 Range/Units 06:47 11:11 06:19 WBC 10.50 H (4.50-10.00) X 10*3/uL RBC 3.57 L (4.40-5.60) X 10*6/uL Hgb 11.3 L (13.0-17.0) g/dL Hct 35.3 L (39.6-50.0) % MCV 98.9 H (80.0-97.0) fL MCHC (32.0-37.0) g/dL RDW 15.3 H (11.5-14.5) % Immature Gran # 0.38 H (0.00-0.04) X 10*3/uL Neutrophils # 8.41 H (1.80-7.70) X 10*3/uL Lymphocytes # 0.87 L (0.90-5.00) X 10*3/uL Sodium 135 L (137-145) mmol/L Chloride 110 H (98-107) mmol/L Creatinine 0.60 L (0.66-1.25) mg/dL POC Glucose (mg/dL) 149 H (75-99) mg/dL Calcium 7.1 L (8.4-10.2) mg/dL AST 84 H (17-59) U/L ALT 81 H (4-49) U/L Total Protein 4.3 L (6.3-8.2) g/dL Albumin 2.0 L (3.5-5.0) g/dL 05/22/21 Range/Units 06:19 WBC 10.10 H (4.50-10.00) X 10*3/uL RBC 3.69 L (4.40-5.60) X 10*6/uL Hgb 11.7 L (13.0-17.0) g/dL Hct 36.8 L (39.6-50.0) % MCV 99.7 H (80.0-97.0) fL MCHC 31.8 L (32.0-37.0) g/dL RDW 15.6 H (11.5-14.5) % Immature Gran # 0.28 H (0.00-0.04) X 10*3/uL Neutrophils # 7.83 H (1.80-7.70) X 10*3/uL Lymphocytes # (0.90-5.00) X 10*3/uL Sodium (137-145) mmol/L Chloride (98-107) mmol/L Creatinine (0.66-1.25) mg/dL POC Glucose (mg/dL) (75-99) mg/dL Calcium (8.4-10.2) mg/dL AST (17-59) U/L ALT (4-49) U/L Total Protein (6.3-8.2) g/dL Albumin (3.5-5.0) g/dL
[2021-05-23 05:44] LABS: Basophils # (A) 0.1 k/uL (0-0.2); Basophils % (A) 1 %; Eosinophils # (A) 0.2 k/uL (0-0.7); Eosinophils % (A) 2 %; HCT 36.5 % (39.0-53.0); Lymphocytes # (A) 1.2 k/uL (1.0-4.8); Lymphocytes % (A) 14 %; MCH 32.7 pg (25.0-35.0); MCHC 32.8 g/dL (31.0-37.0); MCV 99.8 fL (80.0-100.0); Macrocytosis Slight; Mean Platelet Volume 8.1; Monocytes # (A) 0.7 k/uL (0-1.0); Monocytes % (A) 8 %; Neutrophils # (A) 6.5 k/uL (1.3-7.7); Neutrophils % (A) 74 %; Platelet Count 354 k/uL (150-450); RBC 3.65 m/uL (4.30-5.90); WBC 8.8 k/uL (3.8-10.6)
[2021-05-23] MEDS: LEVOTHYROXINE 50 MCG TAB PO SCH (05:48)
[2021-05-23 05:57] LABS: African American GFR (CKD) >90 (>60 ml/min/1.73 sqM); Anion Gap 3 mmol/L; Blood Urea Nitrogen 14 mg/dL (9-20); Calcium 6.9 mg/dL (8.4-10.2); Carbon Dioxide 24 mmol/L (22-30); Chloride 106 mmol/L (98-107); Glucose 89 mg/dL (74-99); Non-African American GFR(CKD) >90 (>60 ml/min/1.73 sqM); Potassium 4.3 mmol/L (3.5-5.1); Sodium 133 mmol/L (137-145)
[2021-05-23 07:18] LABS: Glucose,Whole Blood 80 mg/dL (75-99)
[2021-05-23] MEDS: PANTOPRAZOLE 40 MG TABLET PO SCH (09:09)
[2021-05-23] MEDS: TAMSULOSIN 0.4 MG CAP.ER.24H PO SCH (09:10)
[2021-05-23] MEDS: METOPROLOL TARTRATE 25 MG TAB PO SCH (09:10)
[2021-05-23] MEDS: APIXABAN 5 MG TAB PO SCH (09:10)
[2021-05-23] MEDS: FINASTERIDE 5 MG TAB PO SCH (09:10)
--- NOTE | 2021-05-23 11:37 | P.PN ---
Subjective Progress Note Date: 05/23/21 CHIEF COMPLAINT: Small bowel obstruction HISTORY OF PRESENT ILLNESS: Patient is postop day #13 status post exploratory laparotomy, removal of intraperitoneal mesh, lysis of extensive adhesions and small bowel resection for small bowel obstruction, extensive adhesions, intraperitoneal mesh. Patient denies abdominal pain. Denies any nausea or vomiting. He is tolerating regular diet. He is having bowel movements. He is afebrile. White count has normalized at 8.8. He is to be discharged to [facility] today. Hgb 12 platelets 354 sodium 133 creatinine 0.65 Patient seen and examined with Dr. thornton PHYSICAL EXAM: VITAL SIGNS: Reviewed. GENERAL: Intubated. HEENT: Moist buccal mucosa. Head is atraumatic, normocephalic. ABDOMEN: Soft. nondistended. Erythema at incision site has decreased. There is some serosanguineous drainage noted still at the umbilicus and distal aspect of the incision. Neurology: Patient alert and orientated with episodes of confusion ASSESSMENT: 1. Status post exploratory laparotomy, removal of intraperitoneal mesh, lysis of extensive adhesions and small bowel resection for small bowel obstruction, extensive adhesions and intraperitoneal mesh 2. A. fib with RVR during surgery PLAN: -Patient can be discharged from surgical standpoint -Continue regular diet -Encouraged patient to increase activity level -Encourage patient to use incentive spirometer -Continue GI prophylaxis and DVT prophylaxis [facility] Physician Ramp Lead note has been reviewed by physician. Signing provider agrees with the documented findings, assessment, and plan of care. Objective - Vital Signs Vital signs: Vital Signs Temp 97.8 F 05/23/21 08:40 Pulse 93 05/23/21 09:52 Resp 16 05/23/21 09:52 BP 128/73 05/23/21 08:40 Pulse Ox 96 05/23/21 08:40 Intake & Output 05/22/21 05/23/21 05/23/21 18:59 06:59 18:59 Intake Total 540 180 Output Total 2100 600 Balance 540 -2100 -420 Intake: Oral 540 180 Output: Urine 2100 600 Other: Voiding Method Indwelling Catheter Indwelling Catheter Indwelling Catheter ABP, PAP, CO, CI - Last Documented Arterial Blood Pressure 111/51 - Labs CBC & Chem 7: 05/23/21 05:15 05/23/21 05:15 Labs: Abnormal Lab Results - Last 24 Hours (Table) 05/23/21 05/23/21 Range/Units 05:15 05:15 RBC 3.65 L (4.30-5.90) m/uL Hgb 12.0 L (13.0-17.5) gm/dL Hct 36.5 L (39.0-53.0) % Sodium 133 L (137-145) mmol/L Creatinine 0.65 L (0.66-1.25) mg/dL Calcium 6.9 L (8.4-10.2) mg/dL
[2021-05-23 12:46] VITALS: BP 122/77; PULSE 85; RESP 14; TEMP 97.7
--- NOTE | 2021-05-23 13:21 | P.DS ---
Providers Date of admission: 05/10/21 12:15 Expected date of discharge: 05/23/21 Attending physician: Rizwana Carr Consults: 05/10/21 11:29 Consult Physician Urgent Consulting Provider: Yayo Collado Consult Reason/Comments: Small bowel obstruction Do you want consulting provider notified?: Yes 05/10/21 16:37 Consult Physician Urgent Consulting Provider: Jeevan Bang Consult Reason/Comments: a-fib/surgical clearance Do you want consulting provider notified?: Yes 05/11/21 22:00 Consult Physician Routine Consulting Provider: Hosea Cobian Consult Reason/Comments: ICU management Do you want consulting provider notified?: Already Contacted 05/12/21 11:39 Consult Physician Routine Consulting Provider: Asif Velarde Consult Reason/Comments: hematuria Do you want consulting provider notified?: Yes Primary care physician: Sharron Ybarra Hospital Course: Final diagnosis High-grade small bowel obstruction Status post exploratory laparotomy with removal of intraperitoneal mesh, lysis of extensive lesions and small bowel resection Atrial fibrillation with RVR during surgery, currently sinus rhythm Altered mental status, confusion most probably toxic encephalopathy secondary to narcotic use, improved Hematuria status post indwelling Narvaez catheter insertion Urinary retention requiring reinsertion of indwelling Narvaez catheter on 05/17/2021, an expected outcome of surgery Dehydration with acute renal failure, improved Elevated white blood count, improved Hypokalemia, resolved Paroxysmal atrial fibrillation History of sick sinus syndrome with pacemaker implantation Valvular heart disease Hyperlipidemia History of hypothyroidism Chronic obstructive pulmonary disease, not an exacerbation GI prophylaxis DVT prophylaxis Full code Discharge disposition Patient is being discharged in a stable condition with [facility]/OT therapy. Patient will follow-up with Dr. Browne in the outpatient setting upon discharge. Patient is to follow up with general surgery, primary care provider, urology and his [employer] in the outpatient setting. Total time taken is greater than 35 minutes. Hospital course This is a 80-year-old male who was recently admitted abdominal pain and constipation found to be dehydrated and CT abdomen pelvis showed dilation of several small bowel loops and patient was found to have high-grade small bowel obstruction. Patient underwent exploratory laparotomy with removal of intraperitoneal mesh with extensive lysis of adhesions and small bowel resection and was followed closely by surgery. Patient also evaluated by cardiology and urology. Patient will follow-up with his [employer] in the outpatient setting. Patient also to follow-up with Dr. Velarde urologist for continued uri nary retention. Patient does have a history of BPH and has straight cathed in the past although continue to retain urine and is currently with indwelling Narvaez catheter and recommend to continue with outpatient urology follow-up in 1- 2 weeks and possible trial avoid that.. Patient to follow-up with general surgery in the outpatient setting in 1 week and recommended continued local wound care to the abdominal incision with daily dressing changes and if becomes soiled or wet. Abdominal binder while up. Patient is passing gas and having bowel movements although continues with very little intake. Per at the bedside patient does not eat very much with each meal and explained the importance of nutrition and protein for proper healing. Recommend Magic cups of chocolate in order sherbet twice daily with meals. Patient continues to be extremely weak requiring assistance and physical therapy recommending subacute rehab. Patient and are now agreeable to [facility] and patient has been accepted. COVID-19 was negative. Currently no reports of chest pain, shortness of breath, or palpitations. Patient is afebrile. No reports of nausea or vomiting and patient is tolerating diet. [facility]. Guarded prognosis Physical exam: GENERAL: The patient is awake, alert and oriented 2-3, Well developed, well nourished. HEENT: Pupils are round and equally reacting to light. EOMI. no scleral icterus. No conjunctival pallor. Normocephalic, atraumatic. No pharyngeal erythema. No thyromegaly. CARDIOVASCULAR: S1 and S2 muffled PULMONARY: diminished breath sounds bilaterally with no wheezing or rhonchi noted. ABDOMEN: soft. Less tender, less distended, normoactive bowel sounds. surgical dressing with some mild drainage noted. No palpable organomegaly. Abdominal binder noted. MUSCULOSKELETAL: No joint swelling or deformity. EXTREMITIES: No cyanosis, clubbing, or pedal edema. NEUROLOGICAL: Gross neurological examination did not reveal any focal deficits. diffusely weak SKIN: No rashes. Please refer to medication reconciliation sheet for a list of medications. The impression and plan of care has been dictated by Renu Cantu, Nurse Practitioner as directed. Dr. Ricardo MD I have performed a history and examination and MDM of this patient, discussed the same with the dictator, and agree with the dictator's assessment and plan as written ,documented as a scribe. Based on total visit time, I have performed more than 50% of the visit. Patient Condition at Discharge: Fair Plan - Discharge Summary Discharge Rx Participant: Yes New Discharge Prescriptions: New Ipratropium-Albuterol Nebulize [Duoneb 0.5 mg-3 mg/3 ml Soln] 3 ml INHALATION RT-TID PRN ml PRN Reason: Shortness Of Breath Or Wheezing Melatonin 5 mg PO HS PRN tablet PRN Reason: Insomnia Pantoprazole [Protonix] 40 mg PO AC-BRKFST tab traMADol HCl [Ultram] 50 mg PO QID PRN #8 tab PRN Reason: Pain Continue Finasteride [Proscar] 5 mg PO DAILY Docusate [Colace] 200 mg PO HS PRN PRN Reason: Constipation Levothyroxine Sodium [Synthroid] 50 mcg PO DAILY Simvastatin 40 mg PO HS Tamsulosin [Flomax] 0.4 mg PO BID Metoprolol Tartrate [Lopressor] 25 mg PO BID Apixaban [Eliquis] 5 mg PO BID Fish Oil/Dha/Epa [Fish Oil 1,200 mg Fish Oil] 1 cap PO DAILY Multivit-Min/FA/Lycopen/Lutein [Centrum Silver Tablet] 1 tab PO DAILY Changed Meclizine [Antivert] 12.5 mg PO DAILY PRN #0 PRN Reason: Vertigo Discontinued HYDROcodone/APAP 10-325MG [[place] 10-325] 1 tab PO QID PRN PRN Reason: Pain Aspirin EC [Ecotrin Low Dose] 81 mg PO DAILY Discharge Medication List Finasteride [Proscar] 5 mg PO DAILY 10/03/14 [History] Docusate [Colace] 200 mg PO HS PRN 10/14/15 [History] Apixaban [Eliquis] 5 mg PO BID 09/10/18 [History] Fish Oil/Dha/Epa [Fish Oil 1,200 mg Fish Oil] 1 cap PO DAILY 09/10/18 [History] Levothyroxine Sodium [Synthroid] 50 mcg PO DAILY 09/10/18 [History] Metoprolol Tartrate [Lopressor] 25 mg PO BID 09/10/18 [History] Simvastatin 40 mg PO HS 09/10/18 [History] Tamsulosin [Flomax] 0.4 mg PO BID 09/10/18 [History] Multivit-Min/FA/Lycopen/Lutein [Centrum Silver Tablet] 1 tab PO DAILY 03/03/20 [History] Ipratropium-Albuterol Nebulize [Duoneb 0.5 mg-3 mg/3 ml Soln] 3 ml INHALATION RT-TID PRN ml 05/23/21 [Rx] Meclizine [Antivert] 12.5 mg PO DAILY PRN #0 05/23/21 [Rx] Melatonin 5 mg PO HS PRN tablet 05/23/21 [Rx] Pantoprazole [Protonix] 40 mg PO AC-BRKFST tab 05/23/21 [Rx] traMADol HCl [Ultram] 50 mg PO QID PRN #8 tab 05/23/21 [Rx] Follow up Appointment(s)/Referral(s): Sharron Ybarra III, MD [Primary Care Provider] - 1-2 days [facility], [NON-STAFF] - Vincent Triplett MD [STAFF PHYSICIAN] - 2 Weeks Asif Velarde MD [STAFF PHYSICIAN] - 2 Weeks Yayo Collado MD [STAFF PHYSICIAN] - 1 Week Activity/Diet/Wound Care/Special Instructions: No lifting over 10 pounds Recommending to shower daily and wash incision daily. No soaking or tub baths for 2 weeks Continue with local wound care to the abdominal incision and continue with abdominal binder while up Continue indwelling Narvaez catheter with outpatient follow-up with urology in 1-2 weeks Recommend to continue with regular diet, low sodium 2000 mg daily and also continue with Magic cups twice daily with meals chocolate and orange sherbet please Patient will need outpatient follow-up with surgery and primary care provider Continue to elevate lower extremities while at rest and may continue with compression stockings and/or Rupesh wraps from the toes up to the knees Discharge Disposition: TRANSFER TO SNF/ECF
== END 2021-05-23 13:10 | DRG 329 ==
LOC: EC 05:54 → 4SSUR 12:15 → 2SICU 05-11 20:27 → 3SCARD 05-14 00:43 → 5NMEDONC 05-19 22:02
PROVIDERS: ADMIT Hospitalist; ATTEND Hospitalist
PROC: 0D9670Z Drainage of Stomach with Drainage Device, Via Natural or Artificial Opening (ICD-10-PCS; 2021-05-10)
PROC: 0DB80ZZ Excision of Small Intestine, Open Approach (ICD-10-PCS; principal; 2021-05-11 10:50)
PROC: 0DN80ZZ Release Small Intestine, Open Approach (ICD-10-PCS; principal; 2021-05-11 10:50)
PROC: 0WPG0JZ Removal of Synthetic Substitute from Peritoneal Cavity, Open Approach (ICD-10-PCS; principal; 2021-05-11 10:50)
PROC: 02HV33Z Insertion of Infusion Device into Superior Vena Cava, Percutaneous Approach (ICD-10-PCS; 2021-05-18)
DX: K56.50 Intestinal adhesions [bands], unspecified as to partial versus complete obstruction (principal); G92.8 Other toxic encephalopathy; J96.00 Acute respiratory failure, unspecified whether with hypoxia or hypercapnia; T85.79XA Infection and inflammatory reaction due to other internal prosthetic devices, implants and grafts, initial encounter; I48.21 Permanent atrial fibrillation; J98.11 Atelectasis; N17.9 Acute kidney failure, unspecified; T83.83XA Hemorrhage due to genitourinary prosthetic devices, implants and grafts, initial encounter; Z20.822 Contact with and (suspected) exposure to COVID-19; T40.605A Adverse effect of unspecified narcotics, initial encounter; D72.829 Elevated white blood cell count, unspecified; E03.9 Hypothyroidism, unspecified; E78.5 Hyperlipidemia, unspecified; E86.0 Dehydration; E87.6 Hypokalemia; G47.00 Insomnia, unspecified; H81.09 Meniere's disease, unspecified ear; F03.90 Unspecified dementia, unspecified severity, without behavioral disturbance, psychotic disturbance, mood disturbance, and anxiety; I12.9 Hypertensive chronic kidney disease with stage 1 through stage 4 chronic kidney disease, or unspecified chronic kidney disease; I34.0 Nonrheumatic mitral (valve) insufficiency; J44.9 Chronic obstructive pulmonary disease, unspecified; J98.6 Disorders of diaphragm; N18.9 Chronic kidney disease, unspecified; G89.29 Other chronic pain; M54.9 Dorsalgia, unspecified; M19.90 Unspecified osteoarthritis, unspecified site; N21.0 Calculus in bladder; N40.1 Benign prostatic hyperplasia with lower urinary tract symptoms; R31.0 Gross hematuria; R33.8 Other retention of urine; Z79.01 Long term (current) use of anticoagulants; Z79.82 Long term (current) use of aspirin; Z79.890 Hormone replacement therapy; Z79.899 Other long term (current) drug therapy; Z87.891 Personal history of nicotine dependence; Z95.0 Presence of cardiac pacemaker; Z90.49 Acquired absence of other specified parts of digestive tract
CPT/HCPCS: 36415; 36573; 71045; 74177; 80048; 80053; 81001; 82040; 82150; 82330; 82805; 83605; 83690; 83735; 84100; 84132; 84478; 85025; 85610; 85730; 86850; 86900; 86901; 87040; 87086; 87635; 88307; 93005; 94002; 94003; 94640; 96361; 96374; 96375; 99285

== ENCOUNTER 2021-06-03 08:27 | Emergency (ER) | payer MEDICARE, OTHER ==
[2021-06-03 08:47] VITALS: TEMP 97.9
--- NOTE | 2021-06-03 08:56 | ED ---
General Adult HPI - General Chief complaint: Urogenital Stated complaint: Urogenital Time Seen by Provider: 06/03/21 08:30 Source: patient, family, RN notes reviewed, old records reviewed Mode of arrival: wheelchair Limitations: no limitations - History of Present Illness Initial comments: This is a 80-year-old male who presents emergency Department complaining that he has been constipated since Saturday he also noted some blood in his urine in his Narvaez bag today. Patient had hernia surgery last week was in [facility] for 5 days and came home after that. Patient states he's not eating much but he has not been able to have a bowel movement. Patient denies any significant abdominal pain per patient denies any nausea or vomiting. Patient denies any chest pain difficulty breathing. Patient any fever chills per patient states he saw Dr. Collado yesterday and he thought the surgical site looked good and the patient did not have to follow-up with him for another 12 weeks. - Related Data Home Medications Medication Instructions Recorded Confirmed Finasteride [Proscar] 5 mg PO DAILY 10/03/14 05/10/21 Docusate [Colace] 200 mg PO HS PRN 10/14/15 05/10/21 Apixaban [Eliquis] 5 mg PO BID 09/10/18 05/10/21 Fish Oil/Dha/Epa [Fish Oil 1,200 1 cap PO DAILY 09/10/18 05/10/21 mg Fish Oil] Levothyroxine Sodium [Synthroid] 50 mcg PO DAILY 09/10/18 05/10/21 Metoprolol Tartrate [Lopressor] 25 mg PO BID 09/10/18 05/10/21 Simvastatin 40 mg PO HS 09/10/18 05/10/21 Tamsulosin [Flomax] 0.4 mg PO BID 09/10/18 05/10/21 Multivit-Min/FA/Lycopen/Lutein 1 tab PO DAILY 03/03/20 05/10/21 [Centrum Silver Tablet] Previous Rx's Medication Instructions Recorded Ipratropium-Albuterol Nebulize 3 ml INHALATION RT-TID PRN ml 05/23/21 [Duoneb 0.5 mg-3 mg/3 ml Soln] Meclizine [Antivert] 12.5 mg PO DAILY PRN #0 03/22/22 Melatonin 5 mg PO HS PRN tablet 05/23/21 Pantoprazole [Protonix] 40 mg PO AC-BRKFST tab 05/23/21 traMADol HCl [Ultram] 50 mg PO QID PRN #8 tab 05/23/21 Amoxicillin/Potassium Clav 1 each PO Q12HR #20 tab 06/03/21 [Augmentin 875-125 Tablet] Allergies Allergy/AdvReac Type Severity Reaction Status Date / Time atorvastatin Allergy PER Verified 06/03/21 08:[address] [facility] cephalexin [From Keflex] Allergy PER Verified 06/03/21 08:[address] [facility] duloxetine Allergy PER Verified 06/03/21 08:[address] [facility] escitalopram [From Lexapro] Allergy PER Verified 06/03/21 08:[address] [facility] gabapentin Allergy PER Verified 06/03/21 08:[address] [facility] levofloxacin [From Levaquin] Allergy PER Verified 06/03/21 08:[address] [facility] niacin Allergy PER Verified 06/03/21 08:[address] [facility] terazosin Allergy PER Verified 06/03/21 08:[address] [facility] Review of Systems ROS Statement: Those systems with pertinent positive or pertinent negative responses have been documented in the HPI. ROS Other: All systems not noted in ROS Statement are negative. Past Medical History Past Medical History: Atrial Fibrillation, COPD, Hyperlipidemia, Hypertension, Prostate Disorder Additional Past Medical History / Comment(s): Meniere's disease, BPH, DJD, arthiritis, chronic bradycardia, and chronic back pain, diverticulitis. History of Any Multi-Drug Resistant Organisms: None Reported Date of last positivie culture/infection: 2001? MDRO Source:: KNEE Past Surgical History: Back Surgery, Bowel Resection, Hernia Repair, Orthopedic Surgery, Pacemaker Additional Past Surgical History / Comment(s): 04/11/15 EP STUDY . Low back surgery with rods and screws. Left knee fluid drained off and patellar scraped. RIGHT inguinal & abdominal hernia repair. Past Anesthesia/Blood Transfusion Reactions: No Reported Reaction Additional Past Anesthesia/Blood Transfusion Reaction / Comment(s): Pt has never recieved blood. Type of Cardiac Device: Permanent Pacemaker Device Placement Date:: unk Past Psychological History: No Psychological Hx Reported Smoking Status: Former smoker Past Alcohol Use History: None Reported Past Drug Use History: None Reported - Past Family History Mother History Unknown: Yes Family Medical History: No Reported History Additional Family Medical History / Comment(s): passed at 79, unknown cause Father History Unknown: Yes Family Medical History: No Reported History Additional Family Medical History / Comment(s): passed at 81yrs. General Exam - General Exam Comments Initial Comments: GENERAL: Patient is well-developed and well-nourished. Patient is nontoxic and well- hydrated and is in no acute distress. ENT: Neck is soft and supple. No significant lymphadenopathy is noted. Oropharynx is clear. Moist mucous membranes. Neck has full range of motion without eliciting any pain. EYES: The sclera were anicteric and conjunctiva were pink and moist. Extraocular movements were intact and pupils were equal round and reactive to light. Eyelids were unremarkable. PULMONARY: Unlabored respirations. Good breath sounds bilaterally. No audible rales rhonchi or wheezing was noted. CARDIOVASCULAR: There is a regular rate and rhythm without any murmurs gallops or rubs. ABDOMEN: Soft and nontender with normal bowel sounds. No signs of infection on the surgical site SKIN: Skin is clear with no lesions or rashes and otherwise unremarkable. NEUROLOGIC: Patient is alert and oriented x3. Cranial nerves II through XII are grossly intact. Motor and sensory are also intact. Normal speech, volume and content. Symmetrical smile. MUSCULOSKELETAL: Normal extremities with adequate strength and full range of motion. LYMPHATICS: No significant lymphadenopathy is noted PSYCHIATRIC: Normal psychiatric evaluation. Limitations: no limitations Course Vital Signs 06/03/21 06/03/21 06/03/21 08:27 08:43 10:13 Temperature 97.6 F 97.9 F Pulse Rate 71 95 89 Respiratory 18 20 18 Rate Blood Pressure 126/77 110/75 122/73 O2 Sat by Pulse 95 96 95 Oximetry Medical Decision Making - Medical Decision Making KUB shows no acute abnormality. Patient had blood and white cells in his urine and because of blood just started today I will treat him for urinary tract infection. I spoke with Dr. Ruiz he wanted to see the patient in the office for his Narvaez. - Lab Data Result diagrams: 06/03/21 09:24 06/03/21 09:24 Lab Results 06/03/21 06/03/21 06/03/21 Range/Units 09:24 09:24 09:34 WBC 12.2 H (3.8-10.6) k/uL RBC 4.18 L (4.30-5.90) m/uL Hgb 13.2 (13.0-17.5) gm/dL Hct 40.8 (39.0-53.0) % MCV 97.6 (80.0-100.0) fL MCH 31.6 (25.0-35.0) pg MCHC 32.4 (31.0-37.0) g/dL RDW 14.5 (11.5-15.5) % Plt Count 283 (150-450) k/uL MPV 7.2 Neutrophils % 79 % Lymphocytes % 14 % Monocytes % 5 % Eosinophils % 1 % Basophils % 1 % Neutrophils # 9.6 H (1.3-7.7) k/uL Lymphocytes # 1.7 (1.0-4.8) k/uL Monocytes # 0.6 (0-1.0) k/uL Eosinophils # 0.1 (0-0.7) k/uL Basophils # 0.1 (0-0.2) k/uL Sodium 133 L (137-145) mmol/L Potassium 4.5 (3.5-5.1) mmol/L Chloride 101 (98-107) mmol/L Carbon Dioxide 21 L (22-30) mmol/L Anion Gap 11 mmol/L BUN 17 (9-20) mg/dL Creatinine 1.53 H (0.66-1.25) mg/dL Est GFR (CKD-EPI)AfAm 50 (>60 ml/min/1.73 sqM) Est GFR (CKD-EPI)NonAf 43 (>60 ml/min/1.73 sqM) Glucose 87 (74-99) mg/dL Calcium 8.4 (8.4-10.2) mg/dL Total Bilirubin 0.9 (0.2-1.3) mg/dL AST 34 (17-59) U/L ALT 34 (4-49) U/L Alkaline Phosphatase 110 (38-126) U/L Total Protein 6.1 L (6.3-8.2) g/dL Albumin 3.2 L (3.5-5.0) g/dL Urine Color Red Urine Appearance Turbid (Clear) Urine pH 5.5 (5.0-8.0) Ur Specific [place] 1.020 (1.001-1.035) Urine Protein 1+ H (Negative) Urine Glucose (UA) Negative (Negative) Urine Ketones Negative (Negative) Urine Blood Large H (Negative) Urine Nitrite Negative (Negative) Urine Bilirubin Negative (Negative) Urine Urobilinogen <2.0 (<2.0) mg/dL Ur Leukocyte Esterase Large H (Negative) Urine RBC >182 H (0-5) /hpf Urine WBC >182 H (0-5) /hpf Urine WBC Clumps Many H (None) /hpf Ur Squamous Epith Cells 2 (0-4) /hpf Urine Bacteria Few H (None) /hpf Urine Mucus Rare H (None) /hpf Urine Yeast (Budding) Few H (None) /hpf Disposition Clinical Impression: Hematuria, Urinary tract infection Disposition: HOME SELF-CARE Condition: Good Instructions (If sedation given, give patient instructions): Urinary Tract Infection in Men (ED) Prescriptions: Amoxicillin/Potassium Clav [Augmentin 875-125 Tablet] 1 each PO Q12HR #20 tab Is patient prescribed a controlled substance at d/c from ED?: No Referrals: Sharron Ybarra III, MD [Primary Care Provider] - 1-2 days Time of Disposition: 11:01
[2021-06-03 09:39] LABS: Albumin 3.2 g/dL (3.5-5.0); Potassium 4.5 mmol/L (3.5-5.1); Total Protein 6.1 g/dL (6.3-8.2)
[2021-06-03 09:40] LABS: Calcium 8.4 mg/dL (8.4-10.2); Total Bilirubin 0.9 mg/dL (0.2-1.3)
[2021-06-03 09:45] LABS: Basophils # (A) 0.1 k/uL (0-0.2); Basophils % (A) 1 %; Eosinophils # (A) 0.1 k/uL (0-0.7); Eosinophils % (A) 1 %; HCT 40.8 % (39.0-53.0); HGB 13.2 gm/dL (13.0-17.5); Lymphocytes # (A) 1.7 k/uL (1.0-4.8); Lymphocytes % (A) 14 %; MCH 31.6 pg (25.0-35.0); MCHC 32.4 g/dL (31.0-37.0); MCV 97.6 fL (80.0-100.0); Mean Platelet Volume 7.2; Monocytes # (A) 0.6 k/uL (0-1.0); Monocytes % (A) 5 %; Neutrophils # (A) 9.6 k/uL (1.3-7.7); Neutrophils % (A) 79 %; Platelet Count 283 k/uL (150-450); RBC 4.18 m/uL (4.30-5.90); RDW 14.5 % (11.5-15.5); WBC 12.2 k/uL (3.8-10.6)
--- NOTE | 2021-06-03 09:52 | XR ---
EXAMINATION TYPE: XR KUB DATE OF EXAM: 06/03/2021 9:42 AM CLINICAL HISTORY: History of kidney stones with constipation TECHNIQUE: Two Upright KUB images of the abdomen are obtained. COMPARISON: CT abdomen and pelvis May 10, 2021. FINDINGS: Gas is seen in nondistended stomach bubble. Scattered gas is seen in non-distended small yadira wel loops. Gas prominent bowel loops right abdomen favor small bowel loop. Gas is seen in non-distend ed colon along the periphery. Prominent fecal filled colonic loop left lower quadrant. Overlying coil s from [place] wall hernia repair surgery are noted in the pelvis. Extensive surgical change lumbar spi ne redemonstrated. No free air. Right greater than left bibasilar parenchymal scarring redemonstrated . Partial visualization of cardiac pacemaker wires. Prominent spurring and disc space narrowing at th oracolumbar junction redemonstrated. IMPRESSION: Improved gastric and small bowel distention from prior study. Overall nonspecific strongl y favor nonobstructive bowel gas pattern is felt present currently.
[2021-06-03 10:14] VITALS: BP 122/73; PULSE 89; RESP 18
[2021-06-03 10:49] LABS: Appearance,Urine Turbid (Clear); Bacteria,Urine Few /hpf; Bilirubin,Urine Negative (Negative); Blood,Urine Large (Negative); Budding Yeast,Urine Few /hpf; Color,Urine Red; Glucose,Urine (UA) Negative (Negative); Ketones,Urine Negative (Negative); Leukocyte Esterase,Urine Large (Negative); Mucus,Urine Rare /hpf; Nitrite,Urine Negative (Negative); PH, Urine 5.5 (5.0-8.0); Protein,Urine 1+ (Negative); RBC,Urine >182 /hpf (0-5); Squamous Epithelial Cell,Urine 2 /hpf (0-4); Urobilinogen,Urine <2.0 mg/dL (<2.0); WBC,Urine >182 /hpf (0-5)
== END 2021-06-03 11:30 | disposition home or self-care (01) ==
LOC: EC 08:27
DX: N39.0 Urinary tract infection, site not specified (principal); I10 Essential (primary) hypertension; I48.91 Unspecified atrial fibrillation; J44.9 Chronic obstructive pulmonary disease, unspecified; E78.5 Hyperlipidemia, unspecified; N40.0 Benign prostatic hyperplasia without lower urinary tract symptoms; Z87.891 Personal history of nicotine dependence; Z79.01 Long term (current) use of anticoagulants; Z79.890 Hormone replacement therapy; Z79.899 Other long term (current) drug therapy
CPT/HCPCS: 36415; 74018; 80053; 81001; 85025; 87077; 87086; 87186; 99283

== ENCOUNTER 2021-07-12 07:46 | Emergency (ER) | payer MEDICARE, OTHER ==
[2021-07-12] MEDS ORDERED: SODIUM CHLORIDE 0.9% 1,000 ML IV STA ×2 (07:54→10:49)
[2021-07-12 07:55] VITALS: TEMP 97.9
--- NOTE | 2021-07-12 07:58 | ED ---
Nausea/Vomiting/Diarrhea HPI - General Chief complaint: Nausea/Vomiting/Diarrhea Stated complaint: Vomiting/dizziness Time Seen by Provider: 07/12/21 07:46 Source: patient, EMS, RN notes reviewed, old records reviewed Mode of arrival: EMS Limitations: no limitations - History of Present Illness Initial comments: 80-year-old male with a history of vertigo also a pacemaker who presents by EMS with complaints of severe dizziness this morning with nausea vomiting at least 4. No palpitations no chest pain no fevers chills sweats or other symptoms reported. He was given Zofran he states he currently is not nauseated. No focal deficits reported. No blurry vision. No other current complaints or modifying factors MD complaint: nausea, vomiting, other - Related Data Home Medications Medication Instructions Recorded Confirmed Finasteride [Proscar] 5 mg PO DAILY 10/03/14 07/12/21 Docusate [Colace] 200 mg PO HS 10/14/15 07/12/21 Apixaban [Eliquis] 5 mg PO BID 09/10/18 07/12/21 Fish Oil/Dha/Epa [Fish Oil 1,200 1 cap PO DAILY 09/10/18 07/12/21 mg Fish Oil] Levothyroxine Sodium [Synthroid] 50 mcg PO DAILY 09/10/18 07/12/21 Metoprolol Tartrate [Lopressor] 25 mg PO BID 09/10/18 07/12/21 Simvastatin 40 mg PO HS 09/10/18 07/12/21 Tamsulosin [Flomax] 0.4 mg PO BID 09/10/18 07/12/21 Multivit-Min/FA/Lycopen/Lutein 1 tab PO DAILY 03/03/20 07/12/21 [Centrum Silver Tablet] Meclizine [Antivert] 12.5 mg PO HS 06/04/21 07/12/21 Doxycycline Hyclate 100 mg PO BID 07/12/21 07/12/21 HYDROcodone/APAP 10-325MG [Smith 1 tab PO Q6H PRN 07/12/21 07/12/21 10-325] Triamterene-Hctz 37.5-25Mg 1 cap PO DAILY 07/12/21 07/12/21 [Dyazide 37.5-25 Capsule] Previous Rx's Medication Instructions Recorded Ipratropium-Albuterol Nebulize 3 ml INHALATION RT-TID PRN ml 05/23/21 [Duoneb 0.5 mg-3 mg/3 ml Soln] Pantoprazole [Protonix] 40 mg PO AC-BRKFST tab 05/23/21 Allergies Allergy/AdvReac Type Severity Reaction Status Date / Time atorvastatin Allergy PER Verified 07/12/21 10:47 [facility] cephalexin [From Keflex] Allergy PER Verified 07/12/21 10:47 [facility] duloxetine Allergy PER Verified 07/12/21 10:47 [facility] escitalopram [From Lexapro] Allergy PER Verified 07/12/21 10:47 [facility] gabapentin Allergy PER Verified 07/12/21 10:47 [facility] levofloxacin [From Levaquin] Allergy PER Verified 07/12/21 10:47 [facility] niacin Allergy PER Verified 07/12/21 10:47 [facility] terazosin Allergy PER Verified 07/12/21 10:47 [facility] Review of Systems ROS Statement: Those systems with pertinent positive or pertinent negative responses have been documented in the HPI. ROS Other: All systems not noted in ROS Statement are negative. Past Medical History Past Medical History: Atrial Fibrillation, COPD, Hyperlipidemia, Hypertension, Prostate Disorder Additional Past Medical History / Comment(s): Meniere's disease, BPH, DJD, arthiritis, chronic bradycardia, and chronic back pain, diverticulitis. History of Any Multi-Drug Resistant Organisms: None Reported Date of last positivie culture/infection: 2001? MDRO Source:: KNEE Past Surgical History: Back Surgery, Bowel Resection, Hernia Repair, Orthopedic Surgery, Pacemaker Additional Past Surgical History / Comment(s): 04/11/15 EP STUDY . Low back surgery with rods and screws. Left knee fluid drained off and patellar scraped. RIGHT inguinal & abdominal hernia repair. Past Anesthesia/Blood Transfusion Reactions: No Reported Reaction Additional Past Anesthesia/Blood Transfusion Reaction / Comment(s): Pt has never recieved blood. Type of Cardiac Device: Permanent Pacemaker Device Placement Date:: unk Past Psychological History: No Psychological Hx Reported Smoking Status: Former smoker Past Alcohol Use History: None Reported Past Drug Use History: None Reported - Past Family History Mother History Unknown: Yes Family Medical History: No Reported History Additional Family Medical History / Comment(s): passed at 79, unknown cause Father History Unknown: Yes Family Medical History: No Reported History Additional Family Medical History / Comment(s): passed at 81yrs. General Exam - General Exam Comments Initial Comments: This is a well-developed well-nourished awake alert oriented 3 male Limitations: no limitations General appearance: alert, in no apparent distress Head exam: Present: atraumatic, normocephalic, normal inspection Eye exam: Present: normal appearance, PERRL, EOMI. Absent: scleral icterus, conjunctival injection, periorbital swelling ENT exam: Present: mucous membranes dry, other (Zofran ODT pill noted on the patient's tongue) Neck exam: Present: normal inspection, full ROM, other (No stridor JVD or bruits). Absent: tenderness, meningismus, lymphadenopathy Respiratory exam: Present: normal lung sounds bilaterally, other (Pacemaker gen erator palpable left upper chest wall.). Absent: respiratory distress, wheezes, rales, rhonchi, stridor Cardiovascular Exam: Present: regular rate, normal rhythm, normal heart sounds. Absent: systolic murmur, diastolic murmur, rubs, gallop, clicks GI/Abdominal exam: Present: soft, normal bowel sounds. Absent: distended, tenderness, guarding, rebound, rigid Extremities exam: Present: normal inspection, full ROM, normal capillary refill. Absent: tenderness, pedal edema, joint swelling, calf tenderness Back exam: Present: normal inspection Neurological exam: Present: alert, oriented X3, CN II-XII intact Psychiatric exam: Present: normal affect, normal mood Skin exam: Present: warm, dry, intact, normal color. Absent: rash Course Vital Signs 07/12/21 07/12/21 07/12/21 07:48 09:07 11:10 Temperature 97.9 F Pulse Rate 78 67 70 Respiratory 18 20 18 Rate Blood Pressure 105/65 94/65 109/75 O2 Sat by Pulse 98 99 97 Oximetry Medical Decision Making - Medical Decision Making I did reevaluate patient several occasions he is currently asymptomatic he does demonstrate evidence of dehydration he does demonstrate evidence of UTI which he currently is being treated for he has follow-up with urology soon. He is on antibiotics at this time. He is continued to be discharged family is in agreeme nt patient's in agreement after IV hydration. The patient does have Antivert at home. - Lab Data Result diagrams: 07/12/21 08:11 07/12/21 08:11 Lab Results 07/12/21 07/12/21 07/12/21 Range/Units 08:11 08:11 08:11 WBC 10.5 (3.8-10.6) k/uL RBC 4.21 L (4.30-5.90) m/uL Hgb 12.9 L (13.0-17.5) gm/dL Hct 42.0 (39.0-53.0) % MCV 99.9 (80.0-100.0) fL MCH 30.7 (25.0-35.0) pg MCHC 30.7 L (31.0-37.0) g/dL RDW 13.5 (11.5-15.5) % Plt Count 241 (150-450) k/uL MPV 7.8 Neutrophils % 80 % Lymphocytes % 13 % Monocytes % 5 % Eosinophils % 1 % Basophils % 1 % Neutrophils # 8.4 H (1.3-7.7) k/uL Lymphocytes # 1.3 (1.0-4.8) k/uL Monocytes # 0.5 (0-1.0) k/uL Eosinophils # 0.1 (0-0.7) k/uL Basophils # 0.1 (0-0.2) k/uL Sodium 139 (137-145) mmol/L Potassium 4.4 (3.5-5.1) mmol/L Chloride 103 (98-107) mmol/L Carbon Dioxide 26 (22-30) mmol/L Anion Gap 10 mmol/L BUN 26 H (9-20) mg/dL Creatinine 1.06 (0.66-1.25) mg/dL Est GFR (CKD-EPI)AfAm 78 (>60 ml/min/1.73 sqM) Est GFR (CKD-EPI)NonAf 67 (>60 ml/min/1.73 sqM) Glucose 134 H (74-99) mg/dL POC Glucose (mg/dL) (75-99) mg/dL POC Glu Commercial Front Load Driver ID Calcium 9.0 (8.4-10.2) mg/dL Magnesium 1.7 (1.6-2.3) mg/dL Total Bilirubin 0.9 (0.2-1.3) mg/dL AST 25 (17-59) U/L ALT 15 (4-49) U/L Alkaline Phosphatase 105 (38-126) U/L Creatine Kinase 63 (55-170) U/L Troponin I (0.000-0.034) ng/mL Total Protein 6.6 (6.3-8.2) g/dL Albumin 3.7 (3.5-5.0) g/dL Urine Color Yellow Urine Appearance Cloudy (Clear) Urine pH 5.5 (5.0-8.0) Ur Specific [place] 1.013 (1.001-1.035) Urine Protein Negative (Negative) Urine Glucose (UA) Negative (Negative) Urine Ketones Negative (Negative) Urine Blood Small H (Negative) Urine Nitrite Positive (Negative) Urine Bilirubin Negative (Negative) Urine Urobilinogen <2.0 (<2.0) mg/dL Ur Leukocyte Esterase Large H (Negative) Urine RBC 8 H (0-5) /hpf Urine WBC 143 H (0-5) /hpf Urine WBC Clumps Few H (None) /hpf Ur Squamous Epith Cells <1 (0-4) /hpf Urine Bacteria Moderate H (None) /hpf Hyaline Casts 1 (0-2) /lpf Urine Mucus Rare H (None) /hpf 07/12/21 07/12/21 Range/Units 08:11 08:31 WBC (3.8-10.6) k/uL RBC (4.30-5.90) m/uL Hgb (13.0-17.5) gm/dL Hct (39.0-53.0) % MCV (80.0-100.0) fL MCH (25.0-35.0) pg MCHC (31.0-37.0) g/dL RDW (11.5-15.5) % Plt Count (150-450) k/uL MPV Neutrophils % % Lymphocytes % % Monocytes % % Eosinophils % % Basophils % % Neutrophils # (1.3-7.7) k/uL Lymphocytes # (1.0-4.8) k/uL Monocytes # (0-1.0) k/uL Eosinophils # (0-0.7) k/uL Basophils # (0-0.2) k/uL Sodium (137-145) mmol/L Potassium (3.5-5.1) mmol/L Chloride (98-107) mmol/L Carbon Dioxide (22-30) mmol/L Anion Gap mmol/L BUN (9-20) mg/dL Creatinine (0.66-1.25) mg/dL Est GFR (CKD-EPI)AfAm (>60 ml/min/1.73 sqM) Est GFR (CKD-EPI)NonAf (>60 ml/min/1.73 sqM) Glucose (74-99) mg/dL POC Glucose (mg/dL) 116 H (75-99) mg/dL POC Glu Commercial Front Load Driver ID Wendy White Calcium (8.4-10.2) mg/dL Magnesium (1.6-2.3) mg/dL Total Bilirubin (0.2-1.3) mg/dL AST (17-59) U/L ALT (4-49) U/L Alkaline Phosphatase (38-126) U/L Creatine Kinase (55-170) U/L Troponin I <0.012 (0.000-0.034) ng/mL Total Protein (6.3-8.2) g/dL Albumin (3.5-5.0) g/dL Urine Color Urine Appearance (Clear) Urine pH (5.0-8.0) Ur Specific [place] (1.001-1.035) Urine Protein (Negative) Urine Glucose (UA) (Negative) Urine Ketones (Negative) Urine Blood (Negative) Urine Nitrite (Negative) Urine Bilirubin (Negative) Urine Urobilinogen (<2.0) mg/dL Ur Leukocyte Esterase (Negative) Urine RBC (0-5) /hpf Urine WBC (0-5) /hpf Urine WBC Clumps (None) /hpf Ur Squamous Epith Cells (0-4) /hpf Urine Bacteria (None) /hpf Hyaline Casts (0-2) /lpf Urine Mucus (None) /hpf - EKG Data -: EKG Interpreted by Me EKG Comments: Atrial fibrillation rate 75 QRS 116 QT/QTC 46/435 poor R-wave progression - Radiology Data Radiology results: report reviewed (No acute processes please see the complete report), image reviewed Disposition Clinical Impression: Dehydration, Mnire's disease Disposition: HOME SELF-CARE Condition: Good Instructions (If sedation given, give patient instructions): Acute Nausea and Vomiting (ED), Dehydration (ED), Meniere Disease (ED), Dizziness (ED) Is patient prescribed a controlled substance at d/c from ED?: No Referrals: Sharron Ybarra III, MD [Primary Care Provider] - 1-2 days Decision Date: 07/12/21 Decision Time: 12:06
[2021-07-12] MEDS ORDERED: MECLIZINE 12.5 MG TAB PO STA (07:59)
[2021-07-12 08:32] LABS: Glucose,Whole Blood 116 mg/dL (75-99)
[2021-07-12 09:08] LABS: Basophils # (A) 0.1 k/uL (0-0.2); Basophils % (A) 1 %; Eosinophils # (A) 0.1 k/uL (0-0.7); Eosinophils % (A) 1 %; HGB 12.9 gm/dL (13.0-17.5); Lymphocytes # (A) 1.3 k/uL (1.0-4.8); Lymphocytes % (A) 13 %; MCH 30.7 pg (25.0-35.0); MCHC 30.7 g/dL (31.0-37.0); MCV 99.9 fL (80.0-100.0); Mean Platelet Volume 7.8; Monocytes # (A) 0.5 k/uL (0-1.0); Monocytes % (A) 5 %; Neutrophils # (A) 8.4 k/uL (1.3-7.7); Neutrophils % (A) 80 %; Platelet Count 241 k/uL (150-450); RBC 4.21 m/uL (4.30-5.90); RDW 13.5 % (11.5-15.5); WBC 10.5 k/uL (3.8-10.6)
[2021-07-12 09:38] LABS: Albumin 3.7 g/dL (3.5-5.0); Magnesium 1.7 mg/dL (1.6-2.3); Potassium 4.4 mmol/L (3.5-5.1); Total Bilirubin 0.9 mg/dL (0.2-1.3); Total Protein 6.6 g/dL (6.3-8.2)
[2021-07-12 10:19] LABS: Appearance,Urine Cloudy (Clear); Bacteria,Urine Moderate /hpf; Bilirubin,Urine Negative (Negative); Blood,Urine Small (Negative); Color,Urine Yellow; Glucose,Urine (UA) Negative (Negative); Hyaline Casts,Urine 1 /lpf (0-2); Ketones,Urine Negative (Negative); Leukocyte Esterase,Urine Large (Negative); Mucus,Urine Rare /hpf; Nitrite,Urine Positive (Negative); PH, Urine 5.5 (5.0-8.0); Protein,Urine Negative (Negative); RBC,Urine 8 /hpf (0-5); Specific Gravity,Urine 1.013 (1.001-1.035); Squamous Epithelial Cell,Urine <1 /hpf (0-4); Urobilinogen,Urine <2.0 mg/dL (<2.0); WBC,Urine 143 /hpf (0-5)
--- NOTE | 2021-07-12 10:25 | XR ---
EXAMINATION TYPE: XR chest 2V DATE OF EXAM: 07/12/2021 COMPARISON: X-ray dated 06/04/2021 HISTORY: Dizziness TECHNIQUE: Frontal and lateral views of the chest are obtained. FINDINGS: Right basal linear pulmonary atelectasis. The left lung base is obscured by the cardiac shadow. Gross ly unremarkable remainder of the lungs. No sizable pleural effusion. No definite pneumothorax. Slightly increased cardiac transverse diameter. Degenerative changes of the thoracic spine. Left upper chest wall dual-lead pacemaker. IMPRESSION: As above.
[2021-07-12 12:23] VITALS: BP 117/64; PULSE 65; RESP 16
== END 2021-07-12 12:30 | disposition home or self-care (01) ==
LOC: EC 07:46
DX: E86.0 Dehydration (principal); H81.09 Meniere's disease, unspecified ear; I10 Essential (primary) hypertension; I48.91 Unspecified atrial fibrillation; J44.9 Chronic obstructive pulmonary disease, unspecified; E78.5 Hyperlipidemia, unspecified; N40.0 Benign prostatic hyperplasia without lower urinary tract symptoms; Z79.01 Long term (current) use of anticoagulants; Z87.891 Personal history of nicotine dependence; Z88.1 Allergy status to other antibiotic agents; Z95.0 Presence of cardiac pacemaker; Z79.899 Other long term (current) drug therapy
CPT/HCPCS: 36415; 71046; 80053; 81001; 82550; 83735; 84484; 85025; 87077; 87086; 87186; 93005; 96360; 96361; 99284

== ENCOUNTER 2021-08-10 10:48 | Emergency (ER) | payer MEDICARE, OTHER ==
[2021-08-10 10:58] VITALS: TEMP 97.4
[2021-08-10] MEDS ORDERED: SODIUM CHLORIDE 0.9% 500 ML 500 ML IV STA (11:16)
[2021-08-10 11:57] LABS: Basophils # (A) 0.1 k/uL (0-0.2); Basophils % (A) 1 %; Eosinophils # (A) 0.2 k/uL (0-0.7); Eosinophils % (A) 2 %; HCT 40.4 % (39.0-53.0); HGB 12.6 gm/dL (13.0-17.5); Lymphocytes # (A) 2.5 k/uL (1.0-4.8); Lymphocytes % (A) 32 %; MCH 30.4 pg (25.0-35.0); MCHC 31.1 g/dL (31.0-37.0); MCV 97.5 fL (80.0-100.0); Mean Platelet Volume 7.9; Monocytes # (A) 0.5 k/uL (0-1.0); Monocytes % (A) 6 %; Neutrophils # (A) 4.5 k/uL (1.3-7.7); Neutrophils % (A) 57 %; Platelet Count 211 k/uL (150-450); RBC 4.15 m/uL (4.30-5.90); RDW 12.9 % (11.5-15.5); WBC 7.8 k/uL (3.8-10.6)
[2021-08-10] MEDS ORDERED: MECLIZINE 12.5 MG TAB PO STA (12:02)
[2021-08-10] MEDS ORDERED: PANTOPRAZOLE 40 MG/10 ML VIAL IVP STA (12:02)
--- NOTE | 2021-08-10 12:24 | ED ---
General Adult HPI - General Chief complaint: Dizziness Stated complaint: Dizziness Time Seen by Provider: 08/10/21 11:16 Source: patient, EMS, RN notes reviewed Mode of arrival: EMS Limitations: no limitations - History of Present Illness Initial comments: 80-year-old male presents emergency Department chief complaint episode of dizziness. Patient has chronic dizziness related to Mnire's disease. Patient does see Dr. Patel. In which patient was recently placed on Augmentin as her concern about possible inner ear infection as he has blood in his right inner year. Patient denies any current headache no blurred vision. He also concerned that he has a throat mass in which she is scheduled for CT of his internal DrNilam Claros and throat. Patient states today he came very dizzy and nauseated and which she had an episode of emesis. He thought it was very dark in nature and can discern the he got a was blood initially. He states he is not currently dizzy states he feels improved he has no abdominal pain no chest pain or shortness breath. - Related Data Home Medications Medication Instructions Recorded Confirmed Finasteride [Proscar] 5 mg PO DAILY 10/03/14 08/10/21 Docusate [Colace] 100 mg PO BID 10/14/15 08/10/21 Apixaban [Eliquis] 5 mg PO BID 09/10/18 08/10/21 Fish Oil/Dha/Epa [Fish Oil 1,200 1 cap PO DAILY 09/10/18 08/10/21 mg Fish Oil] Levothyroxine Sodium [Synthroid] 50 mcg PO DAILY 09/10/18 08/10/21 Metoprolol Tartrate [Lopressor] 25 mg PO BID 09/10/18 08/10/21 Simvastatin 40 mg PO HS 09/10/18 08/10/21 Tamsulosin [Flomax] 0.4 mg PO BID 09/10/18 08/10/21 Multivit-Min/FA/Lycopen/Lutein 1 tab PO DAILY 03/03/20 08/10/21 [Centrum Silver Tablet] HYDROcodone/APAP 10-325MG [Walker 1 tab PO Q6H PRN 07/12/21 08/10/21 10-325] Amoxic-Pot Clav 875-125Mg 1 tab PO Q12HR 08/10/21 08/10/21 [Augmentin 875-125] Aspirin EC [Ecotrin Low Dose] 81 mg PO DAILY 08/10/21 08/10/21 Lidocaine 5% Patch [Lidoderm] 1 patch TOPICAL DAILY PRN 08/10/21 08/10/21 Meclizine [Antivert] 25 mg PO BID 08/10/21 08/10/21 Midodrine [ProAmatine] 5 mg PO BID 08/10/21 08/10/21 Naloxone HCl 4 mg NS ONCE PRN 08/10/21 08/10/21 Previous Rx's Medication Instructions Recorded Ipratropium-Albuterol Nebulize 3 ml INHALATION RT-TID PRN ml 05/23/21 [Duoneb 0.5 mg-3 mg/3 ml Soln] Ondansetron Odt [Zofran Odt] 4 mg PO Q8HR PRN #10 tab 08/10/21 Allergies Allergy/AdvReac Type Severity Reaction Status Date / Time atorvastatin Allergy PER Verified 08/10/21 14:20 [facility] cephalexin [From Keflex] Allergy PER Verified 08/10/21 14:20 [facility] duloxetine Allergy PER Verified 08/10/21 14:20 [facility] escitalopram [From Lexapro] Allergy PER Verified 08/10/21 14:20 [facility] gabapentin Allergy PER Verified 08/10/21 14:20 [facility] levofloxacin [From Levaquin] Allergy PER Verified 08/10/21 14:20 [facility] niacin Allergy PER Verified 08/10/21 14:20 [facility] terazosin Allergy PER Verified 08/10/21 14:20 [facility] Review of Systems ROS Statement: Those systems with pertinent positive or pertinent negative responses have been documented in the HPI. ROS Other: All systems not noted in ROS Statement are negative. Past Medical History Past Medical History: Atrial Fibrillation, COPD, Hyperlipidemia, Hypertension, Prostate Disorder Additional Past Medical History / Comment(s): Meniere's disease, BPH, DJD, arthiritis, chronic bradycardia, and chronic back pain, diverticulitis. History of Any Multi-Drug Resistant Organisms: None Reported Date of last positivie culture/infection: 2001? MDRO Source:: KNEE Past Surgical History: Back Surgery, Bowel Resection, Hernia Repair, Orthopedic Surgery, Pacemaker Additional Past Surgical History / Comment(s): 04/11/15 EP STUDY . Low back surgery with rods and screws. Left knee fluid drained off and patellar scraped. RIGHT inguinal & abdominal hernia repair. Past Anesthesia/Blood Transfusion Reactions: No Reported Reaction Additional Past Anesthesia/Blood Transfusion Reaction / Comment(s): Pt has never recieved blood. Type of Cardiac Device: Permanent Pacemaker Device Placement Date:: unk Past Psychological History: No Psychological Hx Reported Smoking Status: Former smoker Past Alcohol Use History: None Reported Past Drug Use History: None Reported - Past Family History Mother History Unknown: Yes Family Medical History: No Reported History Additional Family Medical History / Comment(s): passed at 79, unknown cause Father History Unknown: Yes Family Medical History: No Reported History Additional Family Medical History / Comment(s): passed at 81yrs. General Exam Limitations: no limitations General appearance: alert, in no apparent distress Head exam: Present: atraumatic, normocephalic, normal inspection Eye exam: Present: normal appearance, PERRL, EOMI. Absent: scleral icterus, conjunctival injection, periorbital swelling ENT exam: Present: normal oropharynx, mucous membranes moist, normal external ear exam. Absent: TM's normal bilaterally (Right hemotympanum) Neck exam: Present: normal inspection, full ROM. Absent: tenderness, meningismus, lymphadenopathy Respiratory exam: Present: normal lung sounds bilaterally. Absent: respiratory distress, wheezes, rales, rhonchi, stridor Cardiovascular Exam: Present: regular rate, normal rhythm, normal heart sounds. Absent: systolic murmur, diastolic murmur, rubs, gallop, clicks GI/Abdominal exam: Present: soft, normal bowel sounds. Absent: distended, tenderness, guarding, rebound, rigid Neurological exam: Present: alert, oriented X3, CN II-XII intact, reflexes normal, other (Finger to nose intact bilaterally.). Absent: motor sensory deficit Skin exam: Present: warm, dry, intact, normal color. Absent: rash Course Vital Signs 08/10/21 10:50 Temperature 97.4 F L Pulse Rate 62 Respiratory 14 Rate Blood Pressure 99/65 O2 Sat by Pulse 98 Oximetry Medical Decision Making - Medical Decision Making 72-year-old male presented for episode dizziness. Patient has chronic episodes of dizziness. His Mnire's disease. Patient's laboratory is essentially unremarkable. Patient states is greatly improved he is asymptomatic he is able to ambulate without difficulty. CTs were performed there were outpatient there is no soft tissue or throat mass noted on CT. CT of the eye a CTs were performed which shows chronic changes of the right mastoid region from mastoidectomy, mild fluid. Patient will continue course antibiotics will follow-up with his ENT he will continue his Antivert as directed and return for any worsening changes symptoms. - Lab Data Result diagrams: 08/10/21 11:08 08/10/21 11:18 Lab Results 08/10/21 08/10/21 08/10/21 Range/Units 11:08 11:08 11:18 WBC 7.8 (3.8-10.6) k/uL RBC 4.15 L (4.30-5.90) m/uL Hgb 12.6 L (13.0-17.5) gm/dL Hct 40.4 (39.0-53.0) % MCV 97.5 (80.0-100.0) fL MCH 30.4 (25.0-35.0) pg MCHC 31.1 (31.0-37.0) g/dL RDW 12.9 (11.5-15.5) % Plt Count 211 (150-450) k/uL MPV 7.9 Neutrophils % 57 % Lymphocytes % 32 % Monocytes % 6 % Eosinophils % 2 % Basophils % 1 % Neutrophils # 4.5 (1.3-7.7) k/uL Lymphocytes # 2.5 (1.0-4.8) k/uL Monocytes # 0.5 (0-1.0) k/uL Eosinophils # 0.2 (0-0.7) k/uL Basophils # 0.1 (0-0.2) k/uL Sodium 137 (137-145) mmol/L Potassium 4.0 (3.5-5.1) mmol/L Chloride 104 (98-107) mmol/L Carbon Dioxide 22 (22-30) mmol/L Anion Gap 11 mmol/L BUN 18 (9-20) mg/dL Creatinine 1.07 (0.66-1.25) mg/dL Est GFR (CKD-EPI)AfAm 77 (>60 ml/min/1.73 sqM) Est GFR (CKD-EPI)NonAf 67 (>60 ml/min/1.73 sqM) Glucose 103 H (74-99) mg/dL Plasma Lactic Acid Jose (0.7-2.0) mmol/L Calcium 8.5 (8.4-10.2) mg/dL Total Bilirubin 0.6 (0.2-1.3) mg/dL AST 25 (17-59) U/L ALT 14 (4-49) U/L Alkaline Phosphatase 89 (38-126) U/L Troponin I 0.013 (0.000-0.034) ng/mL Total Protein 6.2 L (6.3-8.2) g/dL Albumin 3.5 (3.5-5.0) g/dL 08/10/21 Range/Units 12:30 WBC (3.8-10.6) k/uL RBC (4.30-5.90) m/uL Hgb (13.0-17.5) gm/dL Hct (39.0-53.0) % MCV (80.0-100.0) fL MCH (25.0-35.0) pg MCHC (31.0-37.0) g/dL RDW (11.5-15.5) % Plt Count (150-450) k/uL MPV Neutrophils % % Lymphocytes % % Monocytes % % Eosinophils % % Basophils % % Neutrophils # (1.3-7.7) k/uL Lymphocytes # (1.0-4.8) k/uL Monocytes # (0-1.0) k/uL Eosinophils # (0-0.7) k/uL Basophils # (0-0.2) k/uL Sodium (137-145) mmol/L Potassium (3.5-5.1) mmol/L Chloride (98-107) mmol/L Carbon Dioxide (22-30) mmol/L Anion Gap mmol/L BUN (9-20) mg/dL Creatinine (0.66-1.25) mg/dL Est GFR (CKD-EPI)AfAm (>60 ml/min/1.73 sqM) Est GFR (CKD-EPI)NonAf (>60 ml/min/1.73 sqM) Glucose (74-99) mg/dL Plasma Lactic Acid Jose 1.6 (0.7-2.0) mmol/L Calcium (8.4-10.2) mg/dL Total Bilirubin (0.2-1.3) mg/dL AST (17-59) U/L ALT (4-49) U/L Alkaline Phosphatase (38-126) U/L Troponin I (0.000-0.034) ng/mL Total Protein (6.3-8.2) g/dL Albumin (3.5-5.0) g/dL Disposition Clinical Impression: Mnire's disease, Dizziness, Nausea & vomiting Disposition: HOME SELF-CARE Condition: Stable Instructions (If sedation given, give patient instructions): Dizziness (ED) Additional Instructions: Please return to the Emergency Department if symptoms worsen or any other concerns. Prescriptions: Ondansetron Odt [Zofran Odt] 4 mg PO Q8HR PRN #10 tab PRN Reason: Nausea Is patient prescribed a controlled substance at d/c from ED?: No Referrals: Sharron Ybarra III, MD [Primary Care Provider] - 1-2 days Time of Disposition: 14:39
[2021-08-10 12:50] LABS: Albumin 3.5 g/dL (3.5-5.0); Calcium 8.5 mg/dL (8.4-10.2); Total Bilirubin 0.6 mg/dL (0.2-1.3); Total Protein 6.2 g/dL (6.3-8.2)
--- NOTE | 2021-08-10 14:20 | CT ---
EXAMINATION TYPE: CT iac wo con DATE OF EXAM: 08/10/2021 COMPARISON: None available HISTORY: Dizziness, blood right ear, throat mass CT DLP: 209.9mGycm Automated exposure control for dose reduction was used. FINDINGS: Previous right mastoidectomy. Soft tissue density seen at the mastoidectomy bed, nonspecific. Opacifi ed adjacent residual right mastoid air cells. Obliteration of the right aditus ad antrum with minimal soft tissue density within the right Prussak' s space. Apparently intact right middle ear ossicles and right scutum. Symmetrical unremarkable internal auditory canals. Unremarkable inner structures bilaterally. Unremar kable left middle ear structures. Clear left mastoid air cells. Degenerative changes of the right TMJ. Clear visualized paranasal sinuses. Bilateral nasal bone fract ures, possibly chronic, please correlate clinically. IMPRESSION: Right mastoidectomy. Soft tissue density seen at the mastoidectomy bed as described above, nonspecifi c and could be related to postoperative changes or chronic inflammatory changes however underlying le sheryl like cholesteatoma can't be excluded. Other incidental findings as described above.
--- NOTE | 2021-08-10 14:27 | CT ---
EXAMINATION TYPE: CT soft tissue neck w con DATE OF EXAM: 08/10/2021 2:05 PM COMPARISON: None available HISTORY: Throat mass CT DLP: 278.9 mGycm Automated exposure control for dose reduction was used. CONTRAST: CT scan of the neck is performed following with IV Contrast, patient injected with 100 ml mL of Isovu e 300. Axial images are obtained, coronal and sagittal reformatted images are reviewed. FINDINGS: Unremarkable nasopharynx, oropharynx, hypopharynx, larynx, trachea and visualized portion of the esop hagus. Unremarkable thyroid gland. Symmetrical unremarkable parotid glands. Hypoplastic submandibular salivary glands. No pathologically enlarged lymph nodes in the neck. Patent major neck arteries. Arterial atherosclero tic calcifications. No paraspinal lesion. Degenerative changes of the lower cervical spine. IMPRESSION: No suspicious lesion or lymphadenopathy seen in the neck. Incidental findings as described above.
[2021-08-10 14:52] VITALS: BP 124/69; PULSE 79; RESP 18
== END 2021-08-10 14:51 | disposition home or self-care (01) ==
LOC: EC 10:48
DX: H81.09 Meniere's disease, unspecified ear (principal); J44.9 Chronic obstructive pulmonary disease, unspecified; I48.91 Unspecified atrial fibrillation; I10 Essential (primary) hypertension; E78.5 Hyperlipidemia, unspecified; Z87.891 Personal history of nicotine dependence; Z88.8 Allergy status to other drugs, medicaments and biological substances; Z88.1 Allergy status to other antibiotic agents; Z79.899 Other long term (current) drug therapy; Z79.82 Long term (current) use of aspirin; Z79.01 Long term (current) use of anticoagulants
CPT/HCPCS: 36415; 93005; 80053; 83605; 84484; 85025; 70491; 70480; 99284; 96374; 96361; C9113; Q9967

== ENCOUNTER → 2021-10-17 | Outpatient (CLI) | payer MEDICARE, OTHER ==
--- NOTE | 2021-10-17 11:39 | CT ---
EXAMINATION TYPE: CT chest w con CT DLP: 422.70 mGycm, Automated exposure control for dose reduction was used. DATE OF EXAM: 10/17/2021 11:17 AM COMPARISON: Chest radiograph from 07/12/2021.. CLINICAL INDICATION:Male, 81 years old with history of R04.2 HEMOPTYSIS TECHNIQUE: Multiple axial images were obtained through the chest. Sagittal and coronal reformats were created for review. Contrast used:70 mL of Isovue 300 with IV Contrast, none. Oral contrast used: none. FINDINGS: LUNGS/ PLEURA: Streaky atelectasis seen within the lung bases. The right diaphragm is asymmetrically elevated. There is no evidence for mass. No focal consolidation, pneumothorax or pleural effusion. AIRWAY: Patent and unremarkable. HEART: There is mildly enlarged for size. There is moderate atherosclerosis of the arterial vasculatu re. MEDIASTINUM: No gross evidence of adenopathy. VASCULATURE: No aortic aneurysm. No central pulmonary embolism limited evaluation of the peripheral subsegmental branches. Multiple collaterals are seen within the left shoulder and upper chest. MUSCULOSKELETAL: No acute osseous abnormalities, partial visualization of fixation hardware in the lo wer spine hardware appears intact. SOFT TISSUES/LYMPH NODES: Left chest [id number] with leads remain in the right ventricle and right atrium. LOWER NECK: No significant findings. UPPER ABDOMEN: There is an elevated right diaphragm. Cholelithiasis. Postsurgical changes to the bonnie l in the right abdomen. IMPRESSION: 1. No evidence of mass or acute process within the chest to explain hemoptysis. 2. Multiple collaterals in the left shoulder. 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
== END | disposition home or self-care (01) ==
LOC: RADCTMAIN 09:57
PROVIDERS: ATTEND Otolaryngology
DX: R04.2 Hemoptysis (principal)
CPT/HCPCS: 82565; 84520; 71260; 36415; Q9967

== ENCOUNTER 2022-08-08 14:07 | Inpatient (IN) | payer MEDICARE, OTHER ==
[2022-08-08 14:32] LABS: Basophils % (A) 0 %; Eosinophils # (A) 0.1 k/uL (0-0.7); Eosinophils % (A) 1 %; HCT 42.7 % (39.0-53.0); HGB 14.4 gm/dL (13.0-17.5); Lymphocytes # (A) 0.9 k/uL (1.0-4.8); Lymphocytes % (A) 8 %; MCH 31.5 pg (25.0-35.0); MCHC 33.8 g/dL (31.0-37.0); Mean Platelet Volume 7.8; Monocytes # (A) 0.6 k/uL (0-1.0); Monocytes % (A) 6 %; Neutrophils # (A) 8.8 k/uL (1.3-7.7); Neutrophils % (A) 83 %; Platelet Count 172 k/uL (150-450); RBC 4.59 m/uL (4.30-5.90); WBC 10.6 k/uL (3.8-10.6)
[2022-08-08] MEDS: SODIUM CHLORIDE 0.9% 500 ML 500 ML IV SCH ×3 (14:33→15:36)
[2022-08-08 14:41] LABS: INR 1.2 (<1.2); Partial Thromboplastin Time 30.2 sec (22.0-30.0); Prothrombin Time 12.5 sec (9.0-12.0)
[2022-08-08 14:55] LABS: ALT 22 U/L (4-49); AST 26 U/L (17-59); African American GFR (CKD) 54 (>60 ml/min/1.73 sqM); Albumin 3.4 g/dL (3.5-5.0); Alkaline Phosphatase 74 U/L (38-126); Anion Gap 11 mmol/L; Blood Urea Nitrogen 35 mg/dL (9-20); Carbon Dioxide 21 mmol/L (22-30); Chloride 102 mmol/L (98-107); Glucose 92 mg/dL (74-99); Non-African American GFR(CKD) 47 (>60 ml/min/1.73 sqM); Potassium 4.1 mmol/L (3.5-5.1); Sodium 134 mmol/L (137-145); Total Bilirubin 1.6 mg/dL (0.2-1.3); Total Protein 6.2 g/dL (6.3-8.2)
[2022-08-08 15:03] LABS: Appearance,Urine Cloudy (Clear); Bacteria,Urine Many /hpf; Bilirubin,Urine Negative (Negative); Blood,Urine Large (Negative); Color,Urine Yellow; Glucose,Urine (UA) Negative (Negative); Ketones,Urine Trace (Negative); Leukocyte Esterase,Urine Large (Negative); Mucus,Urine Few /hpf; Nitrite,Urine Positive (Negative); PH, Urine 5.5 (5.0-8.0); Protein,Urine Trace (Negative); RBC,Urine 3 /hpf (0-5); Specific Gravity,Urine 1.017 (1.001-1.035); Urobilinogen,Urine <2.0 mg/dL (<2.0); WBC,Urine 40 /hpf (0-5)
--- NOTE | 2022-08-08 15:03 | XR ---
EXAMINATION TYPE: XR chest 2V DATE OF EXAM: 08/08/2022 COMPARISON: Chest CT October 17, 2021 and older studies. HISTORY: Fever. TECHNIQUE: Frontal and lateral views of the chest are obtained. FINDINGS: Bibasilar linear opacities favoring scarring and/or atelectasis are redemonstrated. No new suspicious focal airspace opacity, pleural effusion, or pneumothorax is seen. The cardiac silhouett e size is stable and mildly enlarged with dual lead pacemaker redemonstrated. Degenerative change nyla ateral shoulders at the glenohumeral joint are noted. Bridging osteophytes in the thoracic spine are redemonstrated. IMPRESSION: Mild cardiomegaly with Bibasilar linear scarring and/or atelectasis is redemonstrated. N o new acute infiltrate seen.
[2022-08-08] MEDS ORDERED: cefTRIAXone IN SWFI 1,000 MG/10 ML SYRINGE IVP STA (16:27)
[2022-08-08] MEDS ORDERED: SODIUM CHLORIDE 0.9% 1,000 ML IV ONE (16:56)
--- NOTE | 2022-08-08 19:46 | ED ---
General Adult HPI - General Chief complaint: Abdominal Pain Stated complaint: hypotention Time Seen by Provider: 08/08/22 14:15 Source: patient, EMS, RN notes reviewed, old records reviewed Mode of arrival: EMS Limitations: no limitations - History of Present Illness Initial comments: This is a 81-year-old male who presents emergency Department complaining of just feeling extremely fatigued and tired and having some nausea and vomiting. Patient also states he was feeling a little bit short of breath earlier today. Patient was concerned maybe his hernia scar was infected but is not red or swollen. Patient denies any chest pain or palpitations. Patient denies any fever or cough. Patient denies any dysuria hematuria urinary frequency. - Related Data Home Medications Medication Instructions Recorded Confirmed Finasteride [Proscar] 5 mg PO DAILY 10/03/14 08/08/22 Docusate [Colace] 100 mg PO BID 10/14/15 08/08/22 Apixaban [Eliquis] 5 mg PO BID 09/10/18 08/08/22 Fish Oil/Dha/Epa [Fish Oil 1,200 1 cap PO DAILY 09/10/18 08/08/22 mg Fish Oil] Levothyroxine Sodium [Synthroid] 50 mcg PO DAILY 09/10/18 08/08/22 Metoprolol Tartrate [Lopressor] 25 mg PO BID 09/10/18 08/08/22 Simvastatin [Zocor] 40 mg PO HS 09/10/18 08/08/22 Tamsulosin [Flomax] 0.4 mg PO BID 09/10/18 08/08/22 HYDROcodone/APAP 10-325MG [[place] 1 tab PO Q6H PRN 07/12/21 08/08/22 10-325] Aspirin EC [Ecotrin Low Dose] 81 mg PO DAILY 08/10/21 08/08/22 Meclizine [Antivert] 25 mg PO BID PRN 08/10/21 08/08/22 Cider Vinegar [Apple Cider Vinegar] 300 mg PO DAILY 08/08/22 08/08/22 Triamterene/Hydrochlorothiazid 1 tab PO DAILY 08/08/22 08/08/22 [Maxzide 37.5-25] Allergies Allergy/AdvReac Type Severity Reaction Status Date / Time atorvastatin Allergy PER Verified 08/08/22 18:18 [facility] cephalexin [From Keflex] Allergy PER Verified 08/08/22 18:18 [facility] duloxetine Allergy PER Verified 08/08/22 18:18 [facility] escitalopram [From Lexapro] Allergy PER Verified 08/08/22 18:18 [facility] gabapentin Allergy PER Verified 08/08/22 18:18 [facility] levofloxacin [From Levaquin] Allergy PER Verified 08/08/22 18:18 [facility] niacin Allergy PER Verified 08/08/22 18:18 [facility] terazosin Allergy PER Verified 08/08/22 18:18 [facility] Review of Systems ROS Statement: Those systems with pertinent positive or pertinent negative responses have been documented in the HPI. ROS Other: All systems not noted in ROS Statement are negative. Past Medical History Past Medical History: Atrial Fibrillation, COPD, Hyperlipidemia, Hypertension, Prostate Disorder Additional Past Medical History / Comment(s): Meniere's disease, BPH, DJD, arthiritis, chronic bradycardia, and chronic back pain, diverticulitis. History of Any Multi-Drug Resistant Organisms: None Reported Date of last positivie culture/infection: 2001? MDRO Source:: KNEE Past Surgical History: Back Surgery, Bowel Resection, Hernia Repair, Orthopedic Surgery, Pacemaker Additional Past Surgical History / Comment(s): 04/11/15 EP STUDY . Low back surgery with rods and screws. Left knee fluid drained off and patellar scraped. RIGHT inguinal & abdominal hernia repair. Past Anesthesia/Blood Transfusion Reactions: No Reported Reaction Additional Past Anesthesia/Blood Transfusion Reaction / Comment(s): Pt has never recieved blood. Type of Cardiac Device: Permanent Pacemaker Device Placement Date:: Past Psychological History: No Psychological Hx Reported Smoking Status: Former smoker Past Alcohol Use History: None Reported Past Drug Use History: None Reported - Past Family History Mother History Unknown: Yes Family Medical History: No Reported History Additional Family Medical History / Comment(s): passed at 79, unknown cause Father History Unknown: Yes Family Medical History: No Reported History Additional Family Medical History / Comment(s): passed at 81yrs. General Exam - General Exam Comments Initial Comments: GENERAL: Patient is well-developed and well-nourished. Patient is nontoxic and well- hydrated and is in mild distress. ENT: Neck is soft and supple. No significant lymphadenopathy is noted. Oropharynx is clear. Moist mucous membranes. Neck has full range of motion without eliciting any pain. EYES: The sclera were anicteric and conjunctiva were pink and moist. Extraocular movements were intact and pupils were equal round and reactive to light. Eyelids were unremarkable. PULMONARY: Unlabored respirations. Good breath sounds bilaterally. No audible rales rhonchi or wheezing was noted. CARDIOVASCULAR: There is a regular rate and rhythm without any murmurs gallops or rubs. ABDOMEN: Soft and nontender with normal bowel sounds. SKIN: Skin is clear with no lesions or rashes and otherwise unremarkable. NEUROLOGIC: Patient is alert and oriented x3. Cranial nerves II through XII are grossly intact. Motor and sensory are also intact. Normal speech, volume and content. Symmetrical smile. MUSCULOSKELETAL: Normal extremities with adequate strength and full range of motion. LYMPHATICS: No significant lymphadenopathy is noted PSYCHIATRIC: Normal psychiatric evaluation. Limitations: no limitations Course Vital Signs 08/08/22 08/08/22 08/08/22 14:09 14:35 14:45 Temperature 98.7 F 98.9 F Pulse Rate 73 64 69 Respiratory 20 16 18 Rate Blood Pressure 107/89 87/56 95/52 O2 Sat by Pulse 95 96 96 Oximetry 08/08/22 08/08/22 08/08/22 15:05 15:15 15:38 Temperature Pulse Rate 64 60 75 Respiratory 18 18 16 Rate Blood Pressure 91/54 98/62 98/59 O2 Sat by Pulse 97 97 96 Oximetry 08/08/22 08/08/22 08/08/22 16:00 16:30 16:46 Temperature 98.8 F Pulse Rate 62 65 Respiratory 18 17 Rate Blood Pressure 95/58 104/57 O2 Sat by Pulse 98 98 Oximetry 08/08/22 08/08/22 17:02 19:09 Temperature Pulse Rate 64 65 Respiratory 18 17 Rate Blood Pressure 98/61 108/59 O2 Sat by Pulse 98 98 Oximetry Medical Decision Making - Medical Decision Making EKG was interpreted by myself shows regular rhythm. No discernible P waves at a rate of 66 bpm QRS is under 2 QT interval is 4092 QTC is 422. Patient's EKG shows no ST segment elevation or depression Was pt. sent in by a medical professional or institution (, PA, AVIATION TECHNICIAN [employer]CRAFT, urgent care, hospital, or halfway...) When possible be specific @ -No Did you speak to anyone other than the patient for history (EMS, parent, family, police, friend...)? What history was obtained from this source @ -No Did you review nursing and triage notes (agree or disagree)? Why? @ -I reviewed and agree with nursing and triage notes Were old charts reviewed (outside hosp., previous admission, EMS record, old EKG, old radiological studies, urgent care reports/EKG's, halfway records)? Report findings @ -I have reviewed prior laboratory work and charts on this patient Differential Diagnosis (chest pain, altered mental status, abdominal pain women, abdominal pain men, vaginal bleeding, weakness, fever, dyspnea, syncope, h eadache, dizziness, GI bleed, back pain, seizure, CVA, palpatations, mental health, musculoskeletal)? @ -Differential Fever: Pneumonia, viral URI, endocarditis, myocarditis, pericarditis, otitis, sinusitis, peritonsillar Abscess, retropharyngeal Abscess, epiglottitis, peritonitis, appendicitis, Caprice cystitis, diverticulitis, hepatitis, colitis, UTI, PID, TOA, pyelonephritis, prostatitis, epididymitis, meningitis, encephalitis, pulmonary embolism, CVA, thyroid storm, pancreatitis, adrenal crisis, cavernous sinus thrombosis, this is not meant to be an all-inclusive list. EKG interpreted by me (3pts min.). @ -As above X-rays interpreted by me (1pt min.). @ -None done CT interpreted by me (1pt min.). @ -None done U/S interpreted by me (1pt. min.). @ -None done What testing was considered but not performed or refused? (CT, X-rays, U/S, labs)? Why? @ -None What meds were considered but not given or refused? Why? @ -None Did you discuss the management of the patient with other professionals (professionals i.e. , PA, AVIATION TECHNICIAN [employer], lab, RT, psych nurse, social service assistant, systems support engineer, teacher, asset protection officer, hospice case manager)? Give summary @ [facility] wrote admitting orders Was smoking cessation discussed for >3mins.? @ -No Was critical care preformed (if so, how long)? @ -No Were there social determinants of health that impacted care today? How? (Homelessness, low income, unemployed, alcoholism, drug addiction, transportation, low edu. Level, literacy, decrease access to med. care, shelter, rehab)? @ -No Was there de-escalation of care discussed even if they declined (Discuss DNR or withdrawal of care, Hospice)? DNR status @ -No What co-morbidities impacted this encounter? (DM, HTN, Smoking, COPD, CAD, Cancer, CVA, ARF, Chemo, Hep., AIDS, mental health diagnosis, sleep apnea, morbid obesity)? @ -None Was patient admitted / discharged? Hospital course, mention meds given and route, prescriptions, significant lab abnormalities, going to OR and other pertinent info. @ -Patient had a urinary tract infection and patient was given 2 g of Rocephin even though there was some indication of Keflex gave him some sort of ALLERGIC reaction which she requires did not know of and never remember having. Patient was feeling better but the blood pressure stayed a little bit low so we gave the patient fluid boluses and decided to keep the patient. I spoke with [facility]. hospice and they agreed to admit the patient Undiagnosed new problem with uncertain prognosis? @ -No Drug Therapy requiring intensive monitoring for toxicity (Heparin, Nitro, Insulin, Cardizem)? @ -No Were any procedures done? @ -No Diagnosis/symptom? @ -Urinary tract infection Acute, or Chronic, or Acute on Chronic? @ -Acute Uncomplicated (without systemic symptoms) or Complicated (systemic symptoms)? @ -Complicated Side effects of treatment? @ -No Exacerbation, Progression, or Severe Exacerbation? @ -No Poses a threat to life or bodily function? How? (Chest pain, USA, DC, pneumonia, PE, COPD, DKA, ARF, appy, cholecystitis, CVA, Diverticulitis, Homicidal, Suicidal, threat to staff... and all critical care pts) @ -Yes this could lead to sepsis and end organ dysfunction - Lab Data Result diagrams: 08/08/22 14:22 08/08/22 14:22 Lab Results 08/08/22 08/08/22 08/08/22 Range/Units 14:22 14:22 14:22 WBC 10.6 (3.8-10.6) k/uL RBC 4.59 (4.30-5.90) m/uL Hgb 14.4 (13.0-17.5) gm/dL Hct 42.7 (39.0-53.0) % MCV 93.0 (80.0-100.0) fL MCH 31.5 (25.0-35.0) pg MCHC 33.8 (31.0-37.0) g/dL RDW 13.0 (11.5-15.5) % Plt Count 172 (150-450) k/uL MPV 7.8 Neutrophils % 83 % Lymphocytes % 8 % Monocytes % 6 % Eosinophils % 1 % Basophils % 0 % Neutrophils # 8.8 H (1.3-7.7) k/uL Lymphocytes # 0.9 L (1.0-4.8) k/uL Monocytes # 0.6 (0-1.0) k/uL Eosinophils # 0.1 (0-0.7) k/uL Basophils # 0.0 (0-0.2) k/uL PT 12.5 H (9.0-12.0) sec INR 1.2 H (<1.2) APTT 30.2 H (22.0-30.0) sec Sodium 134 L (137-145) mmol/L Potassium 4.1 (3.5-5.1) mmol/L Chloride 102 (98-107) mmol/L Carbon Dioxide 21 L (22-30) mmol/L Anion Gap 11 mmol/L BUN 35 H (9-20) mg/dL Creatinine 1.43 H (0.66-1.25) mg/dL Est GFR (CKD-EPI)AfAm 54 (>60 ml/min/1.73 sqM) Est GFR (CKD-EPI)NonAf 47 (>60 ml/min/1.73 sqM) Glucose 92 (74-99) mg/dL Plasma Lactic Acid Jose (0.7-2.0) mmol/L Calcium 8.0 L (8.4-10.2) mg/dL Total Bilirubin 1.6 H (0.2-1.3) mg/dL AST 26 (17-59) U/L ALT 22 (4-49) U/L Alkaline Phosphatase 74 (38-126) U/L Total Protein 6.2 L (6.3-8.2) g/dL Albumin 3.4 L (3.5-5.0) g/dL Urine Color Urine Appearance (Clear) Urine pH (5.0-8.0) Ur Specific [place] (1.001-1.035) Urine Protein (Negative) Urine Glucose (UA) (Negative) Urine Ketones (Negative) Urine Blood (Negative) Urine Nitrite (Negative) Urine Bilirubin (Negative) Urine Urobilinogen (<2.0) mg/dL Ur Leukocyte Esterase (Negative) Urine RBC (0-5) /hpf Urine WBC (0-5) /hpf Urine Bacteria (None) /hpf Urine Mucus (None) /hpf Influenza Type A (PCR) (Not Detectd) Influenza Type B (PCR) (Not Detectd) RSV (PCR) (Not Detectd) SARS-CoV-2 (PCR) (Not Detectd) 08/08/22 08/08/22 08/08/22 Range/Units 14:22 14:22 14:22 WBC (3.8-10.6) k/uL RBC (4.30-5.90) m/uL Hgb (13.0-17.5) gm/dL Hct (39.0-53.0) % MCV (80.0-100.0) fL MCH (25.0-35.0) pg MCHC (31.0-37.0) g/dL RDW (11.5-15.5) % Plt Count (150-450) k/uL MPV Neutrophils % % Lymphocytes % % Monocytes % % Eosinophils % % Basophils % % Neutrophils # (1.3-7.7) k/uL Lymphocytes # (1.0-4.8) k/uL Monocytes # (0-1.0) k/uL Eosinophils # (0-0.7) k/uL Basophils # (0-0.2) k/uL PT (9.0-12.0) sec INR (<1.2) APTT (22.0-30.0) sec Sodium (137-145) mmol/L Potassium (3.5-5.1) mmol/L Chloride (98-107) mmol/L Carbon Dioxide (22-30) mmol/L Anion Gap mmol/L BUN (9-20) mg/dL Creatinine (0.66-1.25) mg/dL Est GFR (CKD-EPI)AfAm (>60 ml/min/1.73 sqM) Est GFR (CKD-EPI)NonAf (>60 ml/min/1.73 sqM) Glucose (74-99) mg/dL Plasma Lactic Acid Jose 1.1 (0.7-2.0) mmol/L Calcium (8.4-10.2) mg/dL Total Bilirubin (0.2-1.3) mg/dL AST (17-59) U/L ALT (4-49) U/L Alkaline Phosphatase (38-126) U/L Total Protein (6.3-8.2) g/dL Albumin (3.5-5.0) g/dL Urine Color Yellow Urine Appearance Cloudy (Clear) Urine pH 5.5 (5.0-8.0) Ur Specific [place] 1.017 (1.001-1.035) Urine Protein Trace H (Negative) Urine Glucose (UA) Negative (Negative) Urine Ketones Trace H (Negative) Urine Blood Large H (Negative) Urine Nitrite Positive (Negative) Urine Bilirubin Negative (Negative) Urine Urobilinogen <2.0 (<2.0) mg/dL Ur Leukocyte Esterase Large H (Negative) Urine RBC 3 (0-5) /hpf Urine WBC 40 H (0-5) /hpf Urine Bacteria Many H (None) /hpf Urine Mucus Few H (None) /hpf Influenza Type A (PCR) Not Detected (Not Detectd) Influenza Type B (PCR) Not Detected (Not Detectd) RSV (PCR) Not Detected (Not Detectd) SARS-CoV-2 (PCR) Not Detected (Not Detectd) Disposition Clinical Impression: Urinary tract infection, Hypotension Disposition: ADMITTED IP TO THIS [facility] Referrals: Matais Hernandez MD [Primary Care Provider] - 1-2 days Time of Disposition: 20:01
[2022-08-08] MEDS ORDERED: KETOROLAC 15 MG/ML 1 ML VIAL IVP STA (20:07)
[2022-08-08] MEDS ORDERED: HYDROcodone/APAP 10-325MG 1 EACH TAB PO ONE (20:07)
[2022-08-09] MEDS ORDERED: ACETAMINOPHEN TAB 325 MG TAB PO PRN (09:25)
[2022-08-09] MEDS ORDERED: MECLIZINE 25 MG TAB PO PRN (09:27)
[2022-08-09] MEDS: TAMSULOSIN 0.4 MG CAP.ER.24H PO SCH ×2 (10:11→21:17)
[2022-08-09] MEDS: ASPIRIN 81 MG PO SCH (10:11)
[2022-08-09] MEDS: METOPROLOL TARTRATE 25 MG TAB PO SCH ×2 (10:11→21:18)
[2022-08-09] MEDS: FINASTERIDE 5 MG TAB PO SCH (10:11)
[2022-08-09] MEDS: SODIUM CHLORIDE 0.9% 1,000 ML IV SCH ×2 (10:12→23:21)
[2022-08-09] MEDS: APIXABAN 5 MG TAB PO SCH ×2 (10:12→21:17)
[2022-08-09] MEDS: LEVOTHYROXINE 50 MCG TAB PO SCH (10:12)
[2022-08-09] MEDS: HYDROcodone/APAP 10-325MG 1 EACH TAB PO PRN ×2 (10:13→21:19)
--- NOTE | 2022-08-09 13:17 | P.HPIM ---
History of Present Illness H&P Date: 08/09/22 Chief Complaint: Fever, chills * 81-year-old gentleman with past medical history significant for atrial fibrillation, COPD, hypertension, BPH, dyslipidemia presented to the emergency department with complaints of episode of fever, chills, generalized weakness. * Patient is extremely hard of hearing, hence helped with history taking. Apparently patient has been having generalized fatigue and episode of nausea and vomiting 1 day prior to admission. Patient also complained of feeling short of breath. Patient had a hernia surgery done was concerned whether the scar is infected, however upon evaluation does not seem to be an infected abdominal wall incision * Workup initiated in ER including CBC which showed normal WBC count however elevated neutrophil count. Serum chemistry obtained for sodium of 134 BUN of 35 creatinine of 1.43 mild elevation of total bilirubin 1.6 * Urinalysis is obtained showed large leukocyte esterase large amount of WBC and many bacteria * Patient tested negative for influenza and coronavirus Review of Systems REVIEW OF SYSTEMS: CONSTITUTIONAL: Chills, fatigue, weakness HEENT: No recent visual problems or hearing problems. Denied any sore throat. CARDIOVASCULAR: No chest pain, orthopnea, PND, no palpitations, no syncope. PULMONARY: No shortness of breath, no cough, no hemoptysis. GASTROINTESTINAL: Nausea, vomiting NEUROLOGICAL: No headaches, no weakness, no numbness. HEMATOLOGICAL: Denies any bleeding or petechiae. GENITOURINARY: Denies any burning micturition, frequency, or urgency. MUSCULOSKELETAL/RHEUMATOLOGICAL: Denies any joint pain, swelling, or any muscle pain. ENDOCRINE: Denies any polyuria or polydipsia. Past Medical History Past Medical History: Atrial Fibrillation, COPD, Hyperlipidemia, Hypertension, Prostate Disorder Additional Past Medical History / Comment(s): Meniere's disease, BPH, DJD, arthiritis, chronic bradycardia, and chronic back pain, diverticulitis. History of Any Multi-Drug Resistant Organisms: None Reported Date of last positivie culture/infection: 2001? MDRO Source:: KNEE Past Surgical History: Back Surgery, Bowel Resection, Hernia Repair, Orthopedic Surgery, Pacemaker Additional Past Surgical History / Comment(s): 04/11/15 EP STUDY . Low back perez rgery with rods and screws. Left knee fluid drained off and patellar scraped. RIGHT inguinal & abdominal hernia repair. Past Anesthesia/Blood Transfusion Reactions: No Reported Reaction Additional Past Anesthesia/Blood Transfusion Reaction / Comment(s): Pt has never recieved blood. Type of Cardiac Device: Permanent Pacemaker Device Placement Date:: unk Past Psychological History: No Psychological Hx Reported Additional Psychological History / Comment(s): Pt resides with his spouse. He uses a cane or walker to ambulate. He drives. Smoking Status: Former smoker Past Alcohol Use History: None Reported Additional Past Alcohol Use History / Comment(s): Pt quit smoking in 1967. SMOKED FOR 4-6 YRS. PPD-1. Past Drug Use History: None Reported - Past Family History Mother History Unknown: Yes Family Medical History: No Reported History Additional Family Medical History / Comment(s): passed at 79, unknown cause Father History Unknown: Yes Family Medical History: No Reported History Additional Family Medical History / Comment(s): passed at 81yrs. Medications and Allergies Home Medications Medication Instructions Recorded Confirmed Type Finasteride [Proscar] 5 mg PO DAILY 10/03/14 08/08/22 History Docusate [Colace] 100 mg PO BID 10/14/15 08/08/22 History Apixaban [Eliquis] 5 mg PO BID 09/10/18 08/08/22 History Fish Oil/Dha/Epa [Fish Oil 1,200 1 cap PO DAILY 09/10/18 08/08/22 History mg Fish Oil] Levothyroxine Sodium [Synthroid] 50 mcg PO DAILY 09/10/18 08/08/22 History Metoprolol Tartrate [Lopressor] 25 mg PO BID 09/10/18 08/08/22 History Simvastatin [Zocor] 40 mg PO HS 09/10/18 08/08/22 History Tamsulosin [Flomax] 0.4 mg PO BID 09/10/18 08/08/22 History HYDROcodone/APAP 10-325MG [[place] 1 tab PO Q6H PRN 07/12/21 08/08/22 History 10-325] Aspirin EC [Ecotrin Low Dose] 81 mg PO DAILY 08/10/21 08/08/22 History Meclizine [Antivert] 25 mg PO BID PRN 08/10/21 08/08/22 History Cider Vinegar [Apple Cider Vinegar] 300 mg PO DAILY 08/08/22 08/08/22 History Triamterene/Hydrochlorothiazid 1 tab PO DAILY 08/08/22 08/08/22 History [Maxzide 37.5-25] Allergies Allergy/AdvReac Type Severity Reaction Status Date / Time atorvastatin Allergy PER Verified 08/08/22 18:18 [facility] cephalexin [From Keflex] Allergy PER Verified 08/08/22 18:18 [facility] duloxetine Allergy PER Verified 08/08/22 18:18 [facility] escitalopram [From Lexapro] Allergy PER Verified 08/08/22 18:18 [facility] gabapentin Allergy PER Verified 08/08/22 18:18 [facility] levofloxacin [From Levaquin] Allergy PER Verified 08/08/22 18:18 [facility] niacin Allergy PER Verified 08/08/22 18:18 [facility] terazosin Allergy PER Verified 08/08/22 18:18 [facility] Physical Exam Vitals: Vital Signs Temp Pulse Pulse Resp BP BP Pulse Ox 08/09/22 07:47 97.8 F 66 19 102/61 92 L 08/09/22 00:52 97.9 F 74 19 97/60 96 08/08/22 21:00 97.6 F 72 19 104/63 94 L 08/08/22 20:05 97.8 F 69 18 110/70 97 08/08/22 19:49 64 16 102/61 96 08/08/22 19:30 63 19 107/62 97 08/08/22 19:09 65 17 108/59 98 08/08/22 17:02 64 18 98/61 98 08/08/22 16:46 65 17 104/57 98 08/08/22 16:30 62 18 95/58 98 08/08/22 16:00 98.8 F 08/08/22 15:38 75 16 98/59 96 08/08/22 15:15 60 18 98/62 97 08/08/22 15:05 64 18 91/54 97 08/08/22 14:45 69 18 95/52 96 08/08/22 14:35 98.9 F 64 16 87/56 96 08/08/22 14:09 98.7 F 73 20 107/89 95 Intake and Output 08/08/22 08/09/22 08/09/22 22:59 06:59 14:59 Output Total 450 Balance -450 Output: Urine 450 Other: Voiding Method Urinal Weight 111.13 kg PHYSICAL EXAMINATION: GENERAL: The patient is alert and oriented x3, hard of hearing, ill appearing. HEENT: Pupils are round and equally reacting to light. EOMI. No scleral icterus. No conjunctival pallor. Normocephalic, atraumatic. No pharyngeal erythema. No thyromegaly. CARDIOVASCULAR: S1 and S2 present. No murmurs, rubs, or gallops. PULMONARY: Chest is clear to auscultation, no wheezing or crackles. ABDOMEN: Soft, nontender, scar from previous hernia surgery noted no drainage , no erythema MUSCULOSKELETAL: No joint swelling or deformity. EXTREMITIES: No cyanosis, clubbing, or pedal edema. NEUROLOGICAL: Gross neurological examination did not reveal any focal deficits. SKIN: No rashes. Results CBC & Chem 7: 08/08/22 14:22 08/08/22 14:22 Labs: Abnormal Lab Results - Last 24 Hours (Table) 08/08/22 08/08/22 08/08/22 Range/Units 14:22 14:22 14:22 Neutrophils # 8.8 H (1.3-7.7) k/uL Lymphocytes # 0.9 L (1.0-4.8) k/uL PT 12.5 H (9.0-12.0) sec INR 1.2 H (<1.2) APTT 30.2 H (22.0-30.0) sec Sodium 134 L (137-145) mmol/L Carbon Dioxide 21 L (22-30) mmol/L BUN 35 H (9-20) mg/dL Creatinine 1.43 H (0.66-1.25) mg/dL Calcium 8.0 L (8.4-10.2) mg/dL Total Bilirubin 1.6 H (0.2-1.3) mg/dL Total Protein 6.2 L (6.3-8.2) g/dL Albumin 3.4 L (3.5-5.0) g/dL Urine Protein (Negative) Urine Ketones (Negative) Urine Blood (Negative) Ur Leukocyte Esterase (Negative) Urine WBC (0-5) /hpf Urine Bacteria (None) /hpf Urine Mucus (None) /hpf 08/08/22 Range/Units 14:22 Neutrophils # (1.3-7.7) k/uL Lymphocytes # (1.0-4.8) k/uL PT (9.0-12.0) sec INR (<1.2) APTT (22.0-30.0) sec Sodium (137-145) mmol/L Carbon Dioxide (22-30) mmol/L BUN (9-20) mg/dL Creatinine (0.66-1.25) mg/dL Calcium (8.4-10.2) mg/dL Total Bilirubin (0.2-1.3) mg/dL Total Protein (6.3-8.2) g/dL Albumin (3.5-5.0) g/dL Urine Protein Trace H (Negative) Urine Ketones Trace H (Negative) Urine Blood Large H (Negative) Ur Leukocyte Esterase Large H (Negative) Urine WBC 40 H (0-5) /hpf Urine Bacteria Many H (None) /hpf Urine Mucus Few H (None) /hpf Thrombosis Risk Factor Assmnt - Choose All That Apply Each Risk Factor Represents 3 Points: Age 75 years or older Thrombosis Risk Factor Assessment Total Risk Factor Score: 3 Thrombosis Risk Factor Assessment Level: Moderate Risk Assessment and Plan Assessment: Assessment and plan * Urinary tract infection * Chronic atrial fibrillation * History of BPH * Dyslipidemia * History of COPD * In regards to urinary tract infection, patient started on IV Rocephin, urine cultures ordered, blood cultures ordered * In regards to chronic atrial fibrillation> continue Eliquis, aspirin and metoprolol * In regards to BPH continue patient on Flomax continue bladder management monitor for post wide retention * CODE STATUS is full code * Already anticoagulated with Eliquis, DVT prophylaxis addressed Time with Patient: Greater than 30
[2022-08-09] MEDS: NON FORMULARY DRUG (Simvastatin [Zocor] 80 MG Tablet) PO SCH (22:38)
[2022-08-10] MEDS: LEVOTHYROXINE 50 MCG TAB PO SCH (06:56)
[2022-08-10 07:39] LABS: HCT 43.4 % (39.0-53.0); HGB 13.7 gm/dL (13.0-17.5); MCH 29.8 pg (25.0-35.0); MCHC 31.6 g/dL (31.0-37.0); MCV 94.2 fL (80.0-100.0); Mean Platelet Volume 8.3; Platelet Count 162 k/uL (150-450); RBC 4.61 m/uL (4.30-5.90); RDW 13.4 % (11.5-15.5); WBC 7.1 k/uL (3.8-10.6)
[2022-08-10] MEDS: TAMSULOSIN 0.4 MG CAP.ER.24H PO SCH ×2 (08:21→21:08)
[2022-08-10] MEDS: APIXABAN 5 MG TAB PO SCH ×2 (08:21→21:08)
[2022-08-10] MEDS: ASPIRIN 81 MG PO SCH (08:22)
[2022-08-10] MEDS: FINASTERIDE 5 MG TAB PO SCH (08:22)
[2022-08-10] MEDS: METOPROLOL TARTRATE 25 MG TAB PO SCH ×2 (08:23→21:08)
[2022-08-10 08:28] LABS: African American GFR (CKD) 74 (>60 ml/min/1.73 sqM); Anion Gap 9 mmol/L; Blood Urea Nitrogen 29 mg/dL (9-20); C Reactive Protein 6.2 mg/dL (<1.0); Calcium 7.8 mg/dL (8.4-10.2); Carbon Dioxide 23 mmol/L (22-30); Chloride 107 mmol/L (98-107); Glucose 99 mg/dL (74-99); Non-African American GFR(CKD) 64 (>60 ml/min/1.73 sqM); Potassium 4.2 mmol/L (3.5-5.1); Sodium 139 mmol/L (137-145)
--- NOTE | 2022-08-10 11:46 | P.PN ---
Subjective Progress Note Date: 08/10/22 * 81-year-old gentleman with past medical history significant for atrial fibrillation, COPD, hypertension, BPH, dyslipidemia presented to the emergency department with complaints of episode of fever, chills, generalized weakness. * Patient is extremely hard of hearing, hence helped with history taking. Apparently patient has been having generalized fatigue and episode of nausea and vomiting 1 day prior to admission. Patient also complained of feeling short of breath. Patient had a hernia surgery done was concerned whether the scar is infected, however upon evaluation does not seem to be an infected abdominal wall incision * Workup initiated in ER including CBC which showed normal WBC count however elevated neutrophil count. Serum chemistry obtained for sodium of 134 BUN of 35 creatinine of 1.43 mild elevation of total bilirubin 1.6 * Urinalysis is obtained showed large leukocyte esterase large amount of WBC and many bacteria * 08/10>> urine cultures ordered not collected, patient states he feels better, had 1 episode of difficult dizziness. Continue patient on IV antibiotic, white cell count and inflammatory markers will be followed up REVIEW OF SYSTEMS: CONSTITUTIONAL: Chills, fatigue, weakness improved HEENT: No recent visual problems or hearing problems. Denied any sore throat. CARDIOVASCULAR: No chest pain, orthopnea, PND, no palpitations, no syncope. PULMONARY: No shortness of breath, no cough, no hemoptysis. GASTROINTESTINAL: Nausea, vomiting resolved NEUROLOGICAL: No headaches, no weakness, no numbness. HEMATOLOGICAL: Denies any bleeding or petechiae. GENITOURINARY: Denies any burning micturition, frequency, or urgency. MUSCULOSKELETAL/RHEUMATOLOGICAL: Denies any joint pain, swelling, or any muscle pain. ENDOCRINE: Denies any polyuria or polydipsia. Objective - Vital Signs Vital signs: Vital Signs Temp 98.3 F 08/10/22 06:51 Pulse 85 08/10/22 06:51 Resp 18 08/10/22 06:51 BP 126/82 08/10/22 06:51 Pulse Ox 95 08/10/22 06:51 FiO2 Intake & Output 08/09/22 08/10/22 08/10/22 18:59 06:59 18:59 Output Total 1200 600 Balance -1200 -600 Output: Urine 1200 600 Other: Voiding Method Urinal Urinal # Voids 1 # Bowel Movements 1 - Exam GENERAL: The patient is alert and oriented x3, hard of hearing, ill appearing. HEENT: Pupils are round and equally reacting to light. EOMI. No scleral icterus. No conjunctival pallor. Normocephalic, atraumatic. No pharyngeal erythema. No thyromegaly. CARDIOVASCULAR: S1 and S2 present. No murmurs, rubs, or gallops. PULMONARY: Chest is clear to auscultation, no wheezing or crackles. ABDOMEN: Soft, nontender, scar from previous hernia surgery noted no drainage , no erythema MUSCULOSKELETAL: No joint swelling or deformity. EXTREMITIES: No cyanosis, clubbing, or pedal edema. NEUROLOGICAL: Gross neurological examination did not reveal any focal deficits. SKIN: No rashes. - Labs CBC & Chem 7: 08/10/22 07:15 08/10/22 07:15 Labs: Abnormal Lab Results - Last 24 Hours (Table) 08/10/22 Range/Units 07:15 BUN 29 H (9-20) mg/dL Calcium 7.8 L (8.4-10.2) mg/dL C-Reactive Protein 6.2 H (<1.0) mg/dL Microbiology - Last 24 Hours (Table) 08/08/22 14:22 Blood Culture - Preliminary Blood 08/08/22 14:22 Blood Culture - Preliminary Blood Assessment and Plan Assessment: Assessment and plan * Urinary tract infection * Chronic atrial fibrillation * History of BPH * Dyslipidemia * History of COPD * In regards to urinary tract infection, patient started on IV Rocephin day 2 , urine cultures ordered pending, blood cultures no growth to date * In regards to chronic atrial fibrillation> continue Eliquis, aspirin and metoprolol * In regards to BPH continue patient on Flomax continue bladder management monitor for post wide retention * CODE STATUS is full code * Already anticoagulated with Eliquis, DVT prophylaxis addressed
[2022-08-10] MEDS: HYDROcodone/APAP 10-325MG 1 EACH TAB PO PRN (21:07)
[2022-08-10] MEDS: NON FORMULARY DRUG (Simvastatin [Zocor] 80 MG Tablet) PO SCH (21:08)
[2022-08-11 04:31] LABS: HCT 40.7 % (39.0-53.0); HGB 13.2 gm/dL (13.0-17.5); MCH 30.5 pg (25.0-35.0); MCHC 32.4 g/dL (31.0-37.0); MCV 94.3 fL (80.0-100.0); Mean Platelet Volume 8.4; Platelet Count 174 k/uL (150-450); RBC 4.32 m/uL (4.30-5.90); RDW 13.5 % (11.5-15.5)
[2022-08-11 04:55] LABS: African American GFR (CKD) >90 (>60 ml/min/1.73 sqM); Anion Gap 7 mmol/L; Blood Urea Nitrogen 20 mg/dL (9-20); Calcium 7.6 mg/dL (8.4-10.2); Carbon Dioxide 22 mmol/L (22-30); Chloride 109 mmol/L (98-107); Glucose 93 mg/dL (74-99); Non-African American GFR(CKD) 83 (>60 ml/min/1.73 sqM); Potassium 3.8 mmol/L (3.5-5.1); Sodium 138 mmol/L (137-145)
[2022-08-11] MEDS: LEVOTHYROXINE 50 MCG TAB PO SCH (06:20)
[2022-08-11] MEDS: TAMSULOSIN 0.4 MG CAP.ER.24H PO SCH ×2 (07:52→22:15)
[2022-08-11] MEDS: FINASTERIDE 5 MG TAB PO SCH (07:52)
[2022-08-11] MEDS: ASPIRIN 81 MG PO SCH (07:52)
[2022-08-11] MEDS: APIXABAN 5 MG TAB PO SCH ×2 (07:52→22:16)
[2022-08-11] MEDS: METOPROLOL TARTRATE 25 MG TAB PO SCH ×2 (07:52→22:15)
[2022-08-11] MEDS: HYDROcodone/APAP 10-325MG 1 EACH TAB PO PRN ×2 (08:07→22:16)
[2022-08-11] MEDS: NON FORMULARY DRUG (Simvastatin [Zocor] 80 MG Tablet) PO SCH (21:37)
[2022-08-12] MEDS: LEVOTHYROXINE 50 MCG TAB PO SCH (06:18)
[2022-08-12] MEDS: APIXABAN 5 MG TAB PO SCH ×2 (08:20→20:12)
[2022-08-12] MEDS: ASPIRIN 81 MG PO SCH (08:20)
[2022-08-12] MEDS: FINASTERIDE 5 MG TAB PO SCH (08:20)
[2022-08-12] MEDS: METOPROLOL TARTRATE 25 MG TAB PO SCH ×2 (08:20→20:13)
[2022-08-12] MEDS: TAMSULOSIN 0.4 MG CAP.ER.24H PO SCH ×2 (08:20→20:12)
[2022-08-12] MEDS: HYDROcodone/APAP 10-325MG 1 EACH TAB PO PRN ×2 (08:25→20:10)
[2022-08-12 10:52] LABS: African American GFR (CKD) >90 (>60 ml/min/1.73 sqM); Anion Gap 7 mmol/L; Blood Urea Nitrogen 16 mg/dL (9-20); Carbon Dioxide 25 mmol/L (22-30); Chloride 107 mmol/L (98-107); Glucose 79 mg/dL (74-99); Non-African American GFR(CKD) 83 (>60 ml/min/1.73 sqM); Potassium 4.2 mmol/L (3.5-5.1); Sodium 139 mmol/L (137-145)
[2022-08-12] MEDS: NON FORMULARY DRUG (Simvastatin [Zocor] 80 MG Tablet) PO SCH (20:03)
--- NOTE | 2022-08-12 21:43 | P.PN ---
Subjective Progress Note Date: 08/11/22 81-year-old gentleman with past medical history significant for atrial fibrillation, COPD, hypertension, BPH, dyslipidemia presented to the emergency department with complaints of episode of fever, chills, generalized weakness. * Patient is extremely hard of hearing, hence helped with history taking. Apparently patient has been having generalized fatigue and episode of nausea and vomiting 1 day prior to admission. Patient also complained of feeling short of breath. Patient had a hernia surgery done was concerned whether the scar is infected, however upon evaluation does not seem to be an infected abdominal wall incision * Workup initiated in ER including CBC which showed normal WBC count however elevated neutrophil count. Serum chemistry obtained for sodium of 134 BUN of 35 creatinine of 1.43 mild elevation of total bilirubin 1.6 * Urinalysis is obtained showed large leukocyte esterase large amount of WBC and many bacteria * 08/10>> urine cultures ordered not collected, patient states he feels better, had 1 episode of difficult dizziness. Continue patient on IV antibiotic, white cell count and inflammatory markers will be followed up 08/11/2022 Patient is currently lying in the bed. Awake alert and oriented. Hard of hearing. Denies any complaints of chest pain or shortness of breath. Dizziness is improving. No fever no chills. No cough or sputum production. No abdominal pain. Patient is on IV ceftriaxone for urinary tract infection. Laboratory data showed WBC 6.0 hemoglobin 13.7 platelets 174 sodium 138 potassium 3.8 chloride 109 bicarb is 22 BUN 20 and creatinine 0.85 and calcium 7.6 and CRP level is trending down to 4.0. Follow-up final urine culture report. Current medications reviewed. REVIEW OF SYSTEMS: CONSTITUTIONAL: Chills, fatigue, weakness improved HEENT: No recent visual problems or hearing problems. Denied any sore throat. CARDIOVASCULAR: No chest pain, orthopnea, PND, no palpitations, no syncope. PULMONARY: No shortness of breath, no cough, no hemoptysis. GASTROINTESTINAL: Nausea, vomiting resolved NEUROLOGICAL: No headaches, no weakness, no numbness. HEMATOLOGICAL: Denies any bleeding or petechiae. GENITOURINARY: Denies any burning micturition, frequency, or urgency. MUSCULOSKELETAL/RHEUMATOLOGICAL: Denies any joint pain, swelling, or any muscle pain. ENDOCRINE: Denies any polyuria or polydipsia. Objective - Vital Signs Vital signs: Vital Signs Temp 97.4 F L 08/11/22 14:12 Pulse 66 08/11/22 14:12 Resp 18 08/11/22 14:12 BP 100/67 08/11/22 14:12 Pulse Ox 99 08/11/22 14:12 FiO2 Intake & Output 08/11/22 08/11/22 08/12/22 06:59 18:59 06:59 Output Total 500 120 Balance -500 -120 Output: Urine 500 120 Other: Voiding Method Urinal # Bowel Movements 1 - Exam - Exam GENERAL: The patient is alert and oriented x3, hard of hearing, . HEENT: Pupils are round and equally reacting to light. EOMI. No scleral icterus. No conjunctival pallor. Normocephalic, atraumatic. No pharyngeal erythema. No thyromegaly. CARDIOVASCULAR: S1 and S2 present. No murmurs, rubs, or gallops. PULMONARY: Chest is clear to auscultation, no wheezing or crackles. ABDOMEN: Soft, nontender, scar from previous hernia surgery noted no drainage , no erythema MUSCULOSKELETAL: No joint swelling or deformity. EXTREMITIES: No cyanosis, clubbing, or pedal edema. NEUROLOGICAL: Gross neurological examination did not reveal any focal deficits. SKIN: No rashes. - Labs CBC & Chem 7: 08/11/22 04:15 08/12/22 09:55 Labs: Abnormal Lab Results - Last 24 Hours (Table) 08/11/22 Range/Units 04:15 Chloride 109 H (98-107) mmol/L Calcium 7.6 L (8.4-10.2) mg/dL C-Reactive Protein 4.0 H (<1.0) mg/dL Microbiology - Last 24 Hours (Table) 08/09/22 14:00 Urine Culture - Final Urine,Voided 08/08/22 14:22 Blood Culture - Preliminary Blood 08/08/22 14:22 Blood Culture - Preliminary Blood Assessment and Plan Assessment: Assessment and plan * Acute Urinary tract infection * Chronic atrial fibrillation * History of BPH * Dyslipidemia * History of COPD * In regards to urinary tract infection, patient started on IV Rocephin day 3 , urine cultures ordered pending, blood cultures no growth to date * In regards to chronic atrial fibrillation> continue Eliquis, aspirin and metoprolol * In regards to BPH continue patient on Flomax continue bladder management m onitor for post voit retention * CODE STATUS is full code * Already anticoagulated with Eliquis, DVT prophylaxis addressed Time with Patient: Greater than 30
--- NOTE | 2022-08-12 22:03 | P.PN ---
Subjective Progress Note Date: 08/12/22 81-year-old gentleman with past medical history significant for atrial fibrillation, COPD, hypertension, BPH, dyslipidemia presented to the emergency department with complaints of episode of fever, chills, generalized weakness. * Patient is extremely hard of hearing, hence helped with history taking. Apparently patient has been having generalized fatigue and episode of nausea and vomiting 1 day prior to admission. Patient also complained of feeling short of breath. Patient had a hernia surgery done was concerned whether the scar is infected, however upon evaluation does not seem to be an infected abdominal wall incision * Workup initiated in ER including CBC which showed normal WBC count however elevated neutrophil count. Serum chemistry obtained for sodium of 134 BUN of 35 creatinine of 1.43 mild elevation of total bilirubin 1.6 * Urinalysis is obtained showed large leukocyte esterase large amount of WBC and many bacteria * 08/10>> urine cultures ordered not collected, patient states he feels better, had 1 episode of difficult dizziness. Continue patient on IV antibiotic, white cell count and inflammatory markers will be followed up 08/11/2022 Patient is currently lying in the bed. Awake alert and oriented. Hard of hearing. Denies any complaints of chest pain or shortness of breath. Dizziness is improving. No fever no chills. No cough or sputum production. No abdominal pain. Patient is on IV ceftriaxone for urinary tract infection. Laboratory data showed WBC 6.0 hemoglobin 13.7 platelets 174 sodium 138 potassium 3.8 chloride 109 bicarb is 22 BUN 20 and creatinine 0.85 and calcium 7.6 and CRP level is trending down to 4.0. Follow-up final urine culture report. 08/12/2022 Patient is currently lying in the bed. Awake alert and oriented x3. Hard of hearing. Dizziness is much improved. Patient is able to tolerate oral diet. No complaints of chest pain or shortness of breath. Currently being continued on ceftriaxone 2 g q. 24 hours. Urine culture showed no growth. Laboratory data showed sodium 139 potassium 4.2 chloride 107 bicarb is 25 BUN 16 and creatinine 0.85 and calcium 8.0. Symptomatically improving. Patient did have small bowel 1 today. Anticipate discharge in next 24 hours with more clinical improvement Current medications reviewed. REVIEW OF SYSTEMS: CONSTITUTIONAL: Chills, fatigue, weakness improved HEENT: No recent visual problems or hearing problems. Denied any sore throat. CARDIOVASCULAR: No chest pain, orthopnea, PND, no palpitations, no syncope. PULMONARY: No shortness of breath, no cough, no hemoptysis. GASTROINTESTINAL: Nausea, vomiting resolved NEUROLOGICAL: No headaches, no weakness, no numbness. HEMATOLOGICAL: Denies any bleeding or petechiae. GENITOURINARY: Denies any burning micturition, frequency, or urgency. MUSCULOSKELETAL/RHEUMATOLOGICAL: Denies any joint pain, swelling, or any muscle pain. ENDOCRINE: Denies any polyuria or polydipsia. Objective - Vital Signs Vital signs: Vital Signs Temp 97.8 F 08/12/22 14:08 Pulse 60 08/12/22 14:08 Resp 18 08/12/22 14:08 BP 112/73 08/12/22 14:08 Pulse Ox 96 08/12/22 14:08 FiO2 Intake & Output 08/11/22 08/12/22 08/12/22 18:59 06:59 18:59 Output Total 120 400 950 Balance -120 -400 -950 Output: Urine 120 400 950 Other: Voiding Method Urinal # Voids 3 3 # Bowel Movements 1 1 - Exam - Exam GENERAL: The patient is alert and oriented x3, hard of hearing, . HEENT: Pupils are round and equally reacting to light. EOMI. No scleral icterus. No conjunctival pallor. Normocephalic, atraumatic. No pharyngeal erythema. No thyromegaly. CARDIOVASCULAR: S1 and S2 present. No murmurs, rubs, or gallops. PULMONARY: Chest is clear to auscultation, no wheezing or crackles. ABDOMEN: Soft, nontender, scar from previous hernia surgery noted no drainage , no erythema MUSCULOSKELETAL: No joint swelling or deformity. EXTREMITIES: No cyanosis, clubbing, or pedal edema. NEUROLOGICAL: Gross neurological examination did not reveal any focal deficits. SKIN: No rashes. - Labs CBC & Chem 7: 08/11/22 04:15 08/12/22 09:55 Labs: Abnormal Lab Results - Last 24 Hours (Table) 08/12/22 Range/Units 09:55 Calcium 8.0 L (8.4-10.2) mg/dL Microbiology - Last 24 Hours (Table) 08/08/22 14:22 Blood Culture - Preliminary Blood 08/08/22 14:22 Blood Culture - Preliminary Blood 08/09/22 14:00 Urine Culture - Final Urine,Voided Assessment and Plan Assessment: Assessment and plan * Acute Urinary tract infection * Chronic atrial fibrillation * History of BPH * Dyslipidemia * History of COPD * In regards to urinary tract infection, patient started on IV Rocephin day 3 , urine cultures no growth, blood cultures no growth to date * In regards to chronic atrial fibrillation> continue Eliquis, aspirin and metoprolol * In regards to BPH continue patient on Flomax continue bladder management monitor for post voit retention * CODE STATUS is full code * Already anticoagulated with Eliquis, DVT prophylaxis addressed
[2022-08-13] MEDS: LEVOTHYROXINE 50 MCG TAB PO SCH (06:17)
[2022-08-13 07:16] LABS: Basophils % (A) 0 %; Eosinophils # (A) 0.4 k/uL (0-0.7); Eosinophils % (A) 5 %; HCT 42.6 % (39.0-53.0); HGB 13.5 gm/dL (13.0-17.5); Lymphocytes # (A) 2.2 k/uL (1.0-4.8); Lymphocytes % (A) 33 %; MCHC 31.7 g/dL (31.0-37.0); MCV 94.6 fL (80.0-100.0); Mean Platelet Volume 8.1; Monocytes # (A) 0.4 k/uL (0-1.0); Monocytes % (A) 7 %; Neutrophils # (A) 3.5 k/uL (1.3-7.7); Neutrophils % (A) 53 %; Platelet Count 219 k/uL (150-450); RBC 4.51 m/uL (4.30-5.90); RDW 13.4 % (11.5-15.5); WBC 6.6 k/uL (3.8-10.6)
[2022-08-13 07:56] LABS: African American GFR (CKD) >90 (>60 ml/min/1.73 sqM); Anion Gap 7 mmol/L; Blood Urea Nitrogen 16 mg/dL (9-20); Calcium 7.8 mg/dL (8.4-10.2); Carbon Dioxide 22 mmol/L (22-30); Chloride 110 mmol/L (98-107); Glucose 77 mg/dL (74-99); Non-African American GFR(CKD) 83 (>60 ml/min/1.73 sqM); Potassium 4.5 mmol/L (3.5-5.1); Sodium 139 mmol/L (137-145)
[2022-08-13] MEDS: APIXABAN 5 MG TAB PO SCH (08:08)
[2022-08-13] MEDS: FINASTERIDE 5 MG TAB PO SCH (08:08)
[2022-08-13] MEDS: METOPROLOL TARTRATE 25 MG TAB PO SCH (08:08)
[2022-08-13] MEDS: ASPIRIN 81 MG PO SCH (08:08)
[2022-08-13] MEDS: TAMSULOSIN 0.4 MG CAP.ER.24H PO SCH (08:08)
[2022-08-13] MEDS: HYDROcodone/APAP 10-325MG 1 EACH TAB PO PRN (08:12)
[2022-08-13 15:13] VITALS: BP 111/68; PULSE 56; RESP 16; TEMP 97.5
== END 2022-08-13 15:37 | disposition home or self-care (01) | DRG 690 ==
LOC: EC 14:07 → 4SSUR 20:03
PROVIDERS: ADMIT Hospitalist; ATTEND Hospitalist
DX: N39.0 Urinary tract infection, site not specified (principal); I48.20 Chronic atrial fibrillation, unspecified; R00.1 Bradycardia, unspecified; Z20.822 Contact with and (suspected) exposure to COVID-19; E78.5 Hyperlipidemia, unspecified; I10 Essential (primary) hypertension; J44.9 Chronic obstructive pulmonary disease, unspecified; M19.90 Unspecified osteoarthritis, unspecified site; I48.91 Unspecified atrial fibrillation; N40.0 Benign prostatic hyperplasia without lower urinary tract symptoms; G89.29 Other chronic pain; I95.9 Hypotension, unspecified; M54.9 Dorsalgia, unspecified; Z87.19 Personal history of other diseases of the digestive system; Z79.01 Long term (current) use of anticoagulants; Z79.82 Long term (current) use of aspirin; Z79.890 Hormone replacement therapy; Z79.899 Other long term (current) drug therapy; Z88.1 Allergy status to other antibiotic agents; Z88.8 Allergy status to other drugs, medicaments and biological substances
CPT/HCPCS: 36415; 71046; 80048; 80053; 81001; 83605; 85025; 85027; 85610; 85730; 86140; 87040; 87086; 87636; 93005; 94760; 96361; 96374; 96375; 96376; 99285

== ENCOUNTER 2022-08-24 05:34 | Inpatient (IN) | payer MEDICARE, OTHER ==
[~2022-08-24 05:34] MED LIST: ACETAMINOPHEN TAB 500 MG TAB PO PRN; HEPARIN SODIUM,PORCINE/PF 5,000 UNIT/0.5 ML SYRINGE SQ PRN; ONDANSETRON 4 MG/2 ML VIAL IVP ONE
[2022-08-24] MEDS: LACTATED RINGERS 1,000 ML IV SCH ×2 (06:13→16:34)
[2022-08-24 06:21] LABS: Glucose,Whole Blood 85 mg/dL (70-110)
[2022-08-24] MEDS ORDERED: HEPARIN SODIUM,PORCINE/PF 5,000 UNIT/0.5 ML SYRINGE SQ ONE (06:27)
[2022-08-24] MEDS ORDERED: DEXAMETHASONE SOD PHOSPHATE 4 MG/ML 1 ML VIAL IV ONE (06:30)
[2022-08-24] MEDS ORDERED: fentaNYL (PF) 50 MCG/ML 2 ML AMP IV ONE (06:55)
[2022-08-24] MEDS ORDERED: HYDROmorphone 0.5 MG/0.5 ML SYRINGE IVP PRN ×2 (07:00→07:57)
[2022-08-24] MEDS ORDERED: SODIUM CHLORIDE 0.9% (PF) 10 ML VIAL ONE (07:01)
[2022-08-24] MEDS ORDERED: ROCURONIUM 10 MG/ML (5 ML VIAL) IV ONE (07:01)
[2022-08-24] MEDS ORDERED: SUCCINYLCHOLINE CHLORIDE 200 MG/10 ML VIAL IV ONE (07:01)
[2022-08-24] MEDS ORDERED: NEOSTIGMINE 1 MG/ML 10 ML VIAL ONE (07:01)
[2022-08-24] MEDS ORDERED: fentaNYL (PF) 50 MCG/ML 2 ML AMP ONE (07:01)
[2022-08-24] MEDS ORDERED: PHENYLEPHRINE-0.9% NACL SYG 1,000 MCG/10 ML SYRINGE ONE (07:01)
[2022-08-24] MEDS ORDERED: GLYCOPYRROLATE 0.2 MG/ML 2 ML VIAL ONE (07:01)
[2022-08-24] MEDS ORDERED: LIDOCAINE 2% INJ 20 MG/ML (2 ML VIAL) ONE (07:01)
[2022-08-24] MEDS ORDERED: ROPIVACAINE 5 MG/ML 30 ML VIAL ONE (07:01)
[2022-08-24] MEDS ORDERED: PROPOFOL 10 MG/ML 20 ML VIAL IV ONE (07:01)
[2022-08-24] MEDS ORDERED: BUPIVACAINE (PF) 0.5% 30 ML VIAL SQ ONE (07:18)
--- NOTE | 2022-08-24 07:48 | P.ANPRN ---
Procedure Note - Anesthesia - Nerve Block Performed Bilateral Transversus Abdominis Single Time Out Performed: Yes Date of Procedure: 08/24/22 Procedure Start Time: :03 Procedure Stop Time: 07:09 Location of Patient: PreOp Indication: Acute Post-Operative Pain, Requested by Surgeon Sedation Type: Sedate with meaningful contact maintained Preparation: Sterile Prep Position: Supine Needle Types: Pajunk Needle Gauge: 21 Ultrasound used to visualize needle placement: Yes Ultrasound used to observe medication spread: Yes Injectate: Other (see comment) (0.25% Ropivicaine 25 ml left, 25 ml right) Blood Aspirated: No Pain Paresthesia on Injection Noted: No Resistance on Injection: Normal Image Stored and Saved: Yes Events: Uneventful and Well Tolerated
[2022-08-24] MEDS ORDERED: ACETAMINOPHEN TAB 325 MG TAB PO PRN (07:57)
[2022-08-24] MEDS ORDERED: HYDROmorphone 1 MG/ML 1 ML SYRINGE IVP PRN (07:57)
[2022-08-24] MEDS ORDERED: NALOXONE 0.4 MG/ML 1 ML VIAL IV PRN (07:57)
[2022-08-24] MEDS ORDERED: METOCLOPRAMIDE 5 MG/ML 2 ML VIAL IVP PRN (07:57)
[2022-08-24] MEDS ORDERED: LACTATED RINGERS 1,000 ML IV ONE (07:57)
--- NOTE | 2022-08-24 07:57 | P.OP ---
Date of Procedure: 08/24/22 Preoperative Diagnosis: Incisional hernia Postoperative Diagnosis: Incisional hernia Extensive adhesions Procedure(s) Performed: Open repair of incisional hernia with onlay mesh Lysis of extensive adhesions Anesthesia: KARLI Surgeon: Yayo Collado Estimated Blood Loss (ml): 10 Pathology: none sent Condition: stable Disposition: PACU Operative Findings: 20 cm incisional hernia Prolene onlay mesh Description of Procedure: The patient's placed on the operative table in supine position. He received general anesthesia. His abdomen was prepped and draped usual fashion. The abdomen was entered through midline incision. The patient had a incisional hernia located the screw portion of the scar. The hernia measured approximately 20 cm length. There were extensive adhesions within the pleural cavity. These were lysed using sharp dissection. Approximately 20 minutes of operative time used to lyse adhesions. The fascial defect was then reapproximated using [id number] Ethibond suture. Once the fascia was repaired. A piece of of Prolene mesh was placed on top of the repair and secured with secure strap tacker. A DEON drain is Brought through separate stab incision. The there is no bleeding in the operative field. The drain was secured with 2-0 nylon. The skin was closed tory. Patient top she will sent to recovery in stable condition.
[2022-08-24] MEDS: ENOXAPARIN 40 MG/0.4 ML SYRINGE SQ SCH (11:33)
[2022-08-24] MEDS: KETOROLAC 15 MG/ML 1 ML VIAL IVP SCH ×2 (12:03→17:51)
[2022-08-24] MEDS ORDERED: MECLIZINE 25 MG TAB PO PRN (20:46)
[2022-08-24] MEDS ORDERED: NON FORMULARY DRUG (Cefuroxime Axetil [Ceftin] 500 MG Tablet) PO SCH (21:00)
[2022-08-24] MEDS: NON FORMULARY DRUG (Simvastatin [Zocor] 80 MG Tablet) PO SCH (21:30)
[2022-08-24] MEDS: METOPROLOL TARTRATE 25 MG TAB PO SCH (21:32)
[2022-08-24] MEDS: TAMSULOSIN 0.4 MG CAP.ER.24H PO SCH (21:32)
[2022-08-24] MEDS: DOCUSATE 100 MG CAP PO SCH (21:32)
[2022-08-25] MEDS: KETOROLAC 15 MG/ML 1 ML VIAL IVP SCH ×4 (00:28→17:46)
[2022-08-25] MEDS: DOCUSATE 100 MG CAP PO SCH ×2 (09:20→20:35)
[2022-08-25] MEDS: ENOXAPARIN 40 MG/0.4 ML SYRINGE SQ SCH (09:20)
[2022-08-25] MEDS: HYDROcodone/APAP 10-325MG 1 EACH TAB PO PRN ×2 (09:20→21:12)
[2022-08-25] MEDS: TAMSULOSIN 0.4 MG CAP.ER.24H PO SCH ×2 (09:20→20:35)
[2022-08-25] MEDS: METOPROLOL TARTRATE 25 MG TAB PO SCH ×2 (09:21→20:36)
--- NOTE | 2022-08-25 13:23 | P.CONS ---
History of Present Illness - Reason for Consult Consult date: 08/25/22 Medical management - History of Present Illness History of present illness; she is a 82-year-old gentleman with past medical history significant for hypertension, hyperlipidemia, hypothyroidism who presented to the hospital for elective hernia surgery. Patient has been complaining of abdominal wall pain related to a chronic incisional hernia for some time. Patient was being seen outpatient by general surgery and the re commended hernia repair. Patient underwent open repair of incisional hernia with onlay mesh and lysis of extensive adhesions. Postoperatively the medicine team was consulted for medical management REVIEW OF SYSTEMS: CONSTITUTIONAL: No fever, no malaise, no fatigue. HEENT: No recent visual problems . Extremely hard of hearing CARDIOVASCULAR: No chest pain, orthopnea, PND, no palpitations, no syncope. PULMONARY: No shortness of breath, no cough, no hemoptysis. GASTROINTESTINAL: No diarrhea. Complains of abdominal pain NEUROLOGICAL: No headaches, no weakness, no numbness. HEMATOLOGICAL: Denies any bleeding or petechiae. GENITOURINARY: Complaining of urinary retention MUSCULOSKELETAL/RHEUMATOLOGICAL: Denies any joint pain, swelling, or any muscle pain. ENDOCRINE: Denies any polyuria or polydipsia. The rest of the 14-point review of systems is negative. PHYSICAL EXAMINATION: GENERAL: The patient is alert and oriented x3, not in any acute distress. Well developed, well nourished. HEENT: Pupils are round and equally reacting to light. EOMI. No scleral icterus. No conjunctival pallor. Normocephalic, atraumatic. No pharyngeal erythema. No thyromegaly. CARDIOVASCULAR: S1 and S2 present. No murmurs, rubs, or gallops. PULMONARY: Chest is clear to auscultation, no wheezing or crackles. ABDOMEN: Tender, abdominal binder seen, drain in place MUSCULOSKELETAL: No joint swelling or deformity. EXTREMITIES: No cyanosis, clubbing, or pedal edema. NEUROLOGICAL: Gross neurological examination did not reveal any focal deficits. SKIN: No rashes. Assessment and plan Incisional hernia Hypothyroid Hypertension Hyperlipidemia History of atrial fibrillation History of COPD history of BPH Urinary retention Monitor vital signs Monitor CBC Monitor CMP Continue pain management per surgery Resume aspirin and Eliquis once okay with surgery. Continue blood pressure medications Continue Synthroid Bladder management per protocol, Narvaez placed DVT prophylaxis: Past Medical History Past Medical History: Atrial Fibrillation, COPD, CVA/TIA, Deep Vein Thrombosis (DVT), Hyperlipidemia, Hypertension, Prostate Disorder, Sleep Apnea/CPAP/BIPAP, Thyroid Disorder Additional Past Medical History / Comment(s): Meniere's disease, BPH, DJD, arthiritis, chronic bradycardia, and chronic back pain, diverticulitis. uses cpap History of Any Multi-Drug Resistant Organisms: None Reported Year Discovered:: 2001? MDRO Source:: KNEE Past Surgical History: Back Surgery, Bowel Resection, Hernia Repair, Orthopedic Surgery, Pacemaker Additional Past Surgical History / Comment(s): 04/11/15 EP STUDY . Low back surgery with rods and screws. Left knee fluid drained off and patellar scraped. RIGHT inguinal & abdominal hernia repair. Past Anesthesia/Blood Transfusion Reactions: No Reported Reaction Additional Past Anesthesia/Blood Transfusion Reaction / Comm: Pt has never recieved blood. Type of Cardiac Device: Permanent Pacemaker Device Placement Date:: unk Past Psychological History: No Psychological Hx Reported Additional Psychological History / Comment(s): Pt resides with his spouse. He uses a cane or walker to ambulate. He drives. Smoking Status: Former smoker Past Alcohol Use History: None Reported Additional Past Alcohol Use History / Comment(s): Pt quit smoking in 1967. SMOKED FOR 4-6 YRS. PPD-1. Past Drug Use History: None Reported - Past Family History Mother History Unknown: Yes Family Medical History: No Reported History Additional Family Medical History / Comment(s): passed at 79, unknown cause Father History Unknown: Yes Family Medical History: No Reported History Additional Family Medical History / Comment(s): passed at 81yrs. Medications and Allergies Home Medications Medication Instructions Recorded Confirmed Type Finasteride [Proscar] 5 mg PO DAILY 10/03/14 08/24/22 History Docusate [Colace] 100 mg PO BID 10/14/15 08/24/22 History Apixaban [Eliquis] 5 mg PO BID 09/10/18 08/21/22 History Fish Oil/Dha/Epa [Fish Oil 1,200 1 cap PO DAILY 09/10/18 08/21/22 History mg Fish Oil] Levothyroxine Sodium [Synthroid] 50 mcg PO DAILY 09/10/18 08/24/22 History Metoprolol Tartrate [Lopressor] 25 mg PO BID 09/10/18 08/24/22 History Simvastatin [Zocor] 80 mg PO HS 09/10/18 08/24/22 History Tamsulosin [Flomax] 0.4 mg PO BID 09/10/18 08/24/22 History HYDROcodone/APAP 10-325MG [Amanda 1 tab PO Q6H PRN 07/12/21 08/24/22 History 10-325] Aspirin EC [Ecotrin Low Dose] 81 mg PO DAILY 08/10/21 08/21/22 History Meclizine [Antivert] 25 mg PO BID PRN 08/10/21 08/24/22 History Cider Vinegar [Apple Cider Vinegar] 300 mg PO DAILY 08/08/22 08/21/22 History cefUROXime axetiL [Ceftin] 500 mg PO BID 6 Days #12 tab 08/13/22 08/24/22 Rx Multivitamins, Thera [Multivitamin 1 tab PO DAILY 08/21/22 08/21/22 History (formulary)] Acetaminophen Tab [Tylenol] 650 mg PO Q6H #30 tab 08/24/22 Rx Ibuprofen [Motrin] 600 mg PO Q6HR PRN #40 tab 08/24/22 Rx oxyCODONE HCL [OxyIR] 5 mg PO Q6H PRN 3 Days #10 tab 08/24/22 Rx Allergies Allergy/AdvReac Type Severity Reaction Status Date / Time atorvastatin Allergy PER Verified 08/24/22 06:02 [facility] cephalexin [From Keflex] Allergy PER Verified 08/24/22 06:02 [facility] duloxetine Allergy PER Verified 08/24/22 06:02 [facility] escitalopram [From Lexapro] Allergy PER Verified 08/24/22 06:02 [facility] gabapentin Allergy PER Verified 08/24/22 06:02 [facility] levofloxacin [From Levaquin] Allergy PER Verified 08/24/22 06:02 [facility] niacin Allergy PER Verified 08/24/22 06:02 [facility] terazosin Allergy PER Verified 08/24/22 06:02 [facility] Physical Exam Vitals: Vital Signs Temp Pulse Pulse Resp BP Pulse Ox 08/25/22 07:00 98 F 61 14 100/63 93 L 08/25/22 02:24 98.4 F 74 17 105/69 96 08/24/22 21:33 82 16 103/60 08/24/22 20:00 17 08/24/22 19:09 97.6 F 63 16 99/63 95 08/24/22 15:15 61 106/68 96 08/24/22 14:15 62 111/69 96 08/24/22 13:55 97.3 F L 60 17 106/68 94 L 08/24/22 13:50 56 L 106/68 89 L 08/24/22 13:15 63 109/69 95 08/24/22 12:45 61 107/68 96 08/24/22 12:15 60 99/62 96 08/24/22 12:00 59 L 102/64 96 08/24/22 11:45 66 105/68 96 08/24/22 11:30 62 108/70 95 08/24/22 11:15 97.6 F 64 17 111/70 93 L 08/24/22 11:00 60 16 128/68 98 08/24/22 10:30 60 16 111/64 92 L 08/24/22 10:00 62 16 107/63 97 Intake and Output 08/24/22 08/25/22 08/25/22 22:59 06:59 14:59 Intake Total 500 118 Output Total 760 Balance -760 500 118 Intake: Oral 500 118 Output: Drainage 60 DEON Drain 60 Urine 700 Uretheral (Narvaez) 700 Other: Voiding Method Toilet Indwelling Catheter Indwelling Catheter Urinal # Voids 2
--- NOTE | 2022-08-25 15:20 | P.PN ---
Subjective Progress Note Date: 08/25/22 Patient has gross hematuria. Pain control. DEON serosanguineous. He had urinary retention. Being seen by medicine. Discharge pending clearance of hematuria and urinary retention. Objective - Vital Signs Vital signs: Vital Signs Temp 98.1 F 08/25/22 14:55 Pulse 60 08/25/22 14:55 Resp 14 08/25/22 14:55 BP 95/59 08/25/22 14:55 Pulse Ox 96 08/25/22 14:55 FiO2 Intake & Output 08/24/22 08/25/22 08/25/22 18:59 06:59 18:59 Intake Total 500 500 118 Output Total 65 700 Balance 435 -200 118 Weight 82 kg Intake: IV 500 Intake, IV Titration 0 Amount Lactated Ringers 1,000 ml 0 @ 20 mls/hr IV .Q24H [facility] Rx#:[id number] Oral 500 118 Output: Drainage 60 DEON Drain 60 Urine 700 Uretheral (Narvaez) 700 Estimated Blood Loss 5 Other: Voiding Method Indwelling Catheter Indwelling Catheter # Voids 2
[2022-08-25] MEDS: LACTATED RINGERS 1,000 ML IV SCH (17:15)
[2022-08-25] MEDS: NON FORMULARY DRUG (Simvastatin [Zocor] 80 MG Tablet) PO SCH (20:36)
[2022-08-26] MEDS: KETOROLAC 15 MG/ML 1 ML VIAL IVP SCH ×2 (06:27)
[2022-08-26] MEDS: LEVOTHYROXINE 50 MCG TAB PO SCH (06:27)
[2022-08-26 09:24] LABS: Basophils # (A) 0.06 X 10*3/uL (0.00-0.10); Basophils % (A) 0.8 %; Eosinophils # (A) 0.34 X 10*3/uL (0.04-0.35); Eosinophils % (A) 4.7 %; HCT 42.6 % (39.6-50.0); HGB 13.8 d/dL (12.0-15.0); Lymphocytes # (A) 1.65 X 10*3/uL (0.90-5.00); Lymphocytes % (A) 22.9 %; MCH 31.2 pg (27.0-32.0); MCHC 32.4 d/dL (32.0-37.0); MCV 96.2 FL (80.0-97.0); Mean Platelet Volume 10.6 FL (9.5-12.2); Monocytes # (A) 0.75 X 10*3/uL (0.20-1.00); Monocytes % (A) 10.4 %; NRBC Per 100 WBC 0 X 10*3/uL (0.00-0.01); Neutrophils # (A) 4.35 X 10*3/uL (1.80-7.70); Neutrophils % (A) 60.6 %; Platelet Count 208 X 10*3/uL (140-440); RBC 4.43 X 10*6/uL (4.40-5.60); RDW 13.6 % (11.5-14.5); WBC 7.19 X 10*3/uL (4.50-10.00)
[2022-08-26 09:32] LABS: ALT 16 U/L (10-49); AST 20 U/L (14-35); Albumin 3.5 d/dL (3.8-4.9); Albumin/Globulin Ratio 1.59 Ratio (1.60-3.17); Alkaline Phosphatase 83 U/L (41-126); BUN/Creat Ratio 20.93 Ratio (12.00-20.00); Blood Urea Nitrogen 29.3 mg/dL (9.0-27.0); Calcium 8.7 mg/dL (8.7-10.3); Carbon Dioxide 24.4 mmol/L (21.6-31.8); Chloride 102 mmol/L (96-109); Globulin 2.2 d/dL (1.6-3.3); Glucose 97 mg/dL (70-110); Potassium 4.5 mmol/L (3.5-5.5); Sodium 135 mmol/L (135-145); Total Bilirubin 0.6 mg/dL (0.3-1.2); Total Protein 5.7 d/dL (6.2-8.2)
[2022-08-26] MEDS: FINASTERIDE 5 MG TAB PO SCH (09:44)
[2022-08-26] MEDS: DOCUSATE 100 MG CAP PO SCH ×2 (09:44→20:44)
[2022-08-26] MEDS: ENOXAPARIN 40 MG/0.4 ML SYRINGE SQ SCH (09:44)
[2022-08-26] MEDS: METOPROLOL TARTRATE 25 MG TAB PO SCH ×2 (09:44→20:44)
[2022-08-26] MEDS: TAMSULOSIN 0.4 MG CAP.ER.24H PO SCH ×2 (09:44→20:44)
--- NOTE | 2022-08-26 14:37 | P.PN ---
Subjective Progress Note Date: 08/26/22 he is a 82-year-old gentleman with past medical history significant for hypertension, hyperlipidemia, hypothyroidism who presented to the hospital for elective hernia surgery. Patient has been complaining of abdominal wall pain related to a chronic incisional hernia for some time. Patient was being seen outpatient by general surgery and the recommended hernia repair. Patient underwent open repair of incisional hernia with onlay mesh and lysis of extensive adhesions. Postoperatively the medicine team was consulted for medical management 08/26. Patient seen and examined. Narvaez discontinued, keep patient on bladder management per protocol. Tolerating diet REVIEW OF SYSTEMS: CONSTITUTIONAL: No fever, no malaise,. CARDIOVASCULAR: No chest pain, no palpitations, no syncope. PULMONARY: No shortness of breath, no cough, GASTROINTESTINAL: No diarrhea, no nausea, no vomiting, no abdominal pain. NEUROLOGICAL: No headaches, no weakness, PHYSICAL EXAMINATION: GENERAL: The patient is alert and oriented x3, not in any acute distress. Well developed, well nourished. HEENT: Pupils are round and equally reacting to light. EOMI. No scleral icterus. No conjunctival pallor. Normocephalic, atraumatic. No pharyngeal erythema. No thyromegaly. CARDIOVASCULAR: S1 and S2 present. No murmurs, rubs, or gallops. PULMONARY: Chest is clear to auscultation, no wheezing or crackles. ABDOMEN: No tenderness, surgical since seen, drain in place, MUSCULOSKELETAL: No joint swelling or deformity. EXTREMITIES: No cyanosis, clubbing, or pedal edema. NEUROLOGICAL: Gross neurological examination did not reveal any focal deficits. SKIN: No rashes. Assessment and plan Incisional hernia Hypothyroid Hypertension Hyperlipidemia History of atrial fibrillation History of COPD history of BPH Urinary retention Monitor vital signs Monitor CBC Monitor CMP Continue pain management per surgery Resume aspirin and Eliquis once okay with surgery. Continue blood pressure medications Continue Synthroid Bladder management per protocol, Narvaez discontinued Follow-up on general surgery recommendations Objective - Vital Signs Vital signs: Vital Signs Temp 97.6 F 08/26/22 07:10 Pulse 63 08/26/22 07:10 Resp 16 08/26/22 07:10 BP 109/68 08/26/22 07:10 Pulse Ox 96 08/26/22 07:10 FiO2 Intake & Output 08/25/22 08/26/22 08/26/22 18:59 06:59 18:59 Intake Total 236 1300 Output Total 1240 125 Balance 236 -1240 1175 Intake: Intake, IV Titration 0 0 Amount Lactated Ringers 1,000 ml 0 0 @ 20 mls/hr IV .Q24H [facility] Rx#:[id number] Oral 236 1300 Output: Drainage 40 Abdomen 40 Urine 1200 Post Void Residual 125 Other: Voiding Method Indwelling Catheter Indwelling Catheter Indwelling Catheter # Voids 1 - Labs CBC & Chem 7: 08/26/22 06:39 08/26/22 06:39 Labs: Abnormal Lab Results - Last 24 Hours (Table) 08/26/22 Range/Units 06:39 BUN 29.3 H (9.0-27.0) mg/dL Est GFR (CKD-EPI) 51 L (>=60) BUN/Creatinine Ratio 20.93 H (12.00-20.00) Ratio Total Protein 5.7 L (6.2-8.2) d/dL Albumin 3.5 L (3.8-4.9) d/dL Albumin/Globulin Ratio 1.59 L (1.60-3.17) Ratio
[2022-08-26] MEDS: LACTATED RINGERS 1,000 ML IV SCH (17:15)
[2022-08-26] MEDS: HYDROcodone/APAP 10-325MG 1 EACH TAB PO PRN (20:44)
[2022-08-26] MEDS: NON FORMULARY DRUG (Simvastatin [Zocor] 80 MG Tablet) PO SCH (20:45)
--- NOTE | 2022-08-26 22:42 | P.PN ---
Subjective Progress Note Date: 08/26/22 Principal diagnosis: Patient unable to void following Narvaez catheter removal. Tolerating diet. DEON serosanguineous. Continue hospitalization due to postoperative urinary retentio n. Objective - Vital Signs Vital signs: Vital Signs Temp 98.1 F 08/26/22 19:42 Pulse 71 08/26/22 19:42 Resp 16 08/26/22 19:42 BP 104/67 08/26/22 19:42 Pulse Ox 95 08/26/22 19:42 FiO2 Intake & Output 08/26/22 08/26/22 08/27/22 06:59 18:59 06:59 Intake Total 1300 Output Total 1240 275 300 Balance -1240 1025 -300 Intake: Intake, IV Titration 0 Amount Lactated Ringers 1,000 ml 0 @ 20 mls/hr IV .Q24H [facility] Rx#:[id number] Oral 1300 Output: Drainage 40 Abdomen 40 Urine 1200 150 300 Post Void Residual 125 Other: Voiding Method Indwelling Catheter Indwelling Catheter Urinal # Voids 1 - Labs CBC & Chem 7: 08/26/22 06:39 08/26/22 06:39 Labs: Abnormal Lab Results - Last 24 Hours (Table) 08/26/22 Range/Units 06:39 BUN 29.3 H (9.0-27.0) mg/dL Est GFR (CKD-EPI) 51 L (>=60) BUN/Creatinine Ratio 20.93 H (12.00-20.00) Ratio Total Protein 5.7 L (6.2-8.2) d/dL Albumin 3.5 L (3.8-4.9) d/dL Albumin/Globulin Ratio 1.59 L (1.60-3.17) Ratio
[2022-08-27] MEDS: LEVOTHYROXINE 50 MCG TAB PO SCH (06:23)
[2022-08-27] MEDS: TAMSULOSIN 0.4 MG CAP.ER.24H PO SCH (08:04)
[2022-08-27] MEDS: ENOXAPARIN 40 MG/0.4 ML SYRINGE SQ SCH (08:04)
[2022-08-27] MEDS: DOCUSATE 100 MG CAP PO SCH (08:04)
[2022-08-27] MEDS: FINASTERIDE 5 MG TAB PO SCH (08:04)
[2022-08-27] MEDS: METOPROLOL TARTRATE 25 MG TAB PO SCH (08:04)
[2022-08-27] MEDS: HYDROcodone/APAP 10-325MG 1 EACH TAB PO PRN (09:23)
--- NOTE | 2022-08-27 13:39 | P.DS ---
Providers Date of admission: 08/27/22 06:50 Expected date of discharge: 08/27/22 Attending physician: Yayo Collado Consults: 08/24/22 07:57 Consult Physician Routine Consulting Provider: Rizwaan Carr Consult Reason/Comments: Medical management Do you want consulting provider notified?: Yes Primary care physician: [facility] Course: Discharge diagnosis 1. Incisional hernia status post Open repair of incisional hernia with onlay mesh and lysis of adhesions 2. Urinary retention resolved Hospital course This is a 82-year-old male with a known history of incisional hernia he is status post open repair of incisional hernia with onlay mesh and lysis of extensive adhesions. Patient's pain is controlled. He is tolerating diet. He is having bowel movements and flatus. He is afebrile. He is stable for discharge. Please refer to chart for any further details. Physician Production Sound Mixer note has been reviewed by physician. Signing provider agrees with the documented findings, assessment, and plan of care. Patient Condition at Discharge: Stable Plan - Discharge Summary Discharge Rx Participant: No New Discharge Prescriptions: New Ibuprofen [Motrin] 600 mg PO Q6HR PRN #40 tab PRN Reason: Pain oxyCODONE HCL [OxyIR] 5 mg PO Q6H PRN 3 Days #10 tab PRN Reason: Pain Acetaminophen Tab [Tylenol] 650 mg PO Q6H #30 tab Continue Finasteride [Proscar] 5 mg PO DAILY Docusate [Colace] 100 mg PO BID Levothyroxine Sodium [Synthroid] 50 mcg PO DAILY Simvastatin [Zocor] 80 mg PO HS Tamsulosin [Flomax] 0.4 mg PO BID Metoprolol Tartrate [Lopressor] 25 mg PO BID Apixaban [Eliquis] 5 mg PO BID Fish Oil/Dha/Epa [Fish Oil 1,200 mg Fish Oil] 1 cap PO DAILY Aspirin EC [Ecotrin Low Dose] 81 mg PO DAILY Meclizine [Antivert] 25 mg PO BID PRN PRN Reason: Vertigo Cider Vinegar [Apple Cider Vinegar] 300 mg PO DAILY Multivitamins, Thera [Multivitamin (formulary)] 1 tab PO DAILY Discontinued HYDROcodone/APAP 10-325MG [Townsend 10-325] 1 tab PO Q6H PRN PRN Reason: Pain No Action cefUROXime axetiL [Ceftin] 500 mg PO BID 6 Days #12 tab Discharge Medication List Finasteride [Proscar] 5 mg PO DAILY 10/03/14 [History] Docusate [Colace] 100 mg PO BID 10/14/15 [History] Apixaban [Eliquis] 5 mg PO BID 09/10/18 [History] Fish Oil/Dha/Epa [Fish Oil 1,200 mg Fish Oil] 1 cap PO DAILY 09/10/18 [History] Levothyroxine Sodium [Synthroid] 50 mcg PO DAILY 09/10/18 [History] Metoprolol Tartrate [Lopressor] 25 mg PO BID 09/10/18 [History] Simvastatin [Zocor] 80 mg PO HS 09/10/18 [History] Tamsulosin [Flomax] 0.4 mg PO BID 09/10/18 [History] Aspirin EC [Ecotrin Low Dose] 81 mg PO DAILY 08/10/21 [History] Meclizine [Antivert] 25 mg PO BID PRN 08/10/21 [History] Cider Vinegar [Apple Cider Vinegar] 300 mg PO DAILY 08/08/22 [History] cefUROXime axetiL [Ceftin] 500 mg PO BID 6 Days #12 tab 08/13/22 [Rx] Multivitamins, Thera [Multivitamin (formulary)] 1 tab PO DAILY 08/21/22 [History] Acetaminophen Tab [Tylenol] 650 mg PO Q6H #30 tab 08/24/22 [Rx] Ibuprofen [Motrin] 600 mg PO Q6HR PRN #40 tab 08/24/22 [Rx] oxyCODONE HCL [OxyIR] 5 mg PO Q6H PRN 3 Days #10 tab 08/24/22 [Rx] Follow up Appointment(s)/Referral(s): Yayo Collado MD [STAFF PHYSICIAN] - 08/30/22 3:45 pm Patient Instructions/Handouts: *Surgery [facility] - (Anesthesia) Discharge Instructions Outpatient Surgery, Atul-Nicole Drain Care (DC), Incisional Hernia (DC) Activity/Diet/Wound Care/Special Instructions: No driving while taking OxyIR No lifting over 10 pounds Shower daily. No soaking or tub baths for 2 weeks Very light activity until you are reevaluated at your follow up appointment with your surgeon Discharge Disposition: HOME SELF-CARE
[2022-08-27 15:06] VITALS: BP 94/56; PULSE 67; RESP 17; TEMP 97.7
--- NOTE | 2022-08-27 15:30 | P.PN ---
Subjective Progress Note Date: 08/27/22 he is a 82-year-old gentleman with past medical history significant for hypertension, hyperlipidemia, hypothyroidism who presented to the hospital for elective hernia surgery. Patient has been complaining of abdominal wall pain related to a chronic incisional hernia for some time. Patient was being seen outpatient by general surgery and the recommended hernia repair. Patient underwent open repair of incisional hernia with onlay mesh and lysis of extensive adhesions. Postoperatively the medicine team was consulted for medical management 08/26. Patient seen and examined. Narvaez discontinued, keep patient on bladder management per protocol. Tolerating diet 08/27. Patient seen and examined. No acute issues overnight. Vital signs stable REVIEW OF SYSTEMS: CONSTITUTIONAL: No fever, no malaise,. CARDIOVASCULAR: No chest pain, no palpitations, no syncope. PULMONARY: No shortness of breath, no cough, GASTROINTESTINAL: No diarrhea, no nausea, no vomiting, no abdominal pain. NEUROLOGICAL: No headaches, no weakness, PHYSICAL EXAMINATION: GENERAL: The patient is alert and oriented x3, not in any acute distress. Well developed, well nourished. HEENT: Pupils are round and equally reacting to light. EOMI. No scleral icterus. No conjunctival pallor. Normocephalic, atraumatic. No pharyngeal erythema. No thyromegaly. CARDIOVASCULAR: S1 and S2 present. No murmurs, rubs, or gallops. PULMONARY: Chest is clear to auscultation, no wheezing or crackles. ABDOMEN: No tenderness, surgical since seen, drain in place, MUSCULOSKELETAL: No joint swelling or deformity. EXTREMITIES: No cyanosis, clubbing, or pedal edema. NEUROLOGICAL: Gross neurological examination did not reveal any focal deficits. SKIN: No rashes. Assessment and plan Incisional hernia Hypothyroid Hypertension Hyperlipidemia History of atrial fibrillation History of COPD history of BPH Urinary retention Monitor vital signs Monitor CBC Monitor CMP Continue pain management per surgery Resume aspirin and Eliquis once okay with surgery. Continue blood pressure medications Continue Synthroid Bladder management per protocol, Narvaez discontinued Follow-up on general surgery recommendations Objective - Vital Signs Vital signs: Vital Signs Temp 97.7 F 08/27/22 14:01 Pulse 67 08/27/22 14:01 Resp 17 08/27/22 14:01 BP 94/56 08/27/22 14:01 Pulse Ox 94 L 08/27/22 14:01 FiO2 Intake & Output 08/26/22 08/27/22 08/27/22 18:59 06:59 18:59 Intake Total 1300 360 Output Total 275 653 300 Balance 1025 -653 60 Intake: Intake, IV Titration 0 Amount Lactated Ringers 1,000 ml 0 @ 20 mls/hr IV .Q24H [facility] Rx#:[id number] Oral 1300 360 Output: Drainage 18 DEON Drain 18 Urine 150 635 300 Post Void Residual 125 Other: Voiding Method Indwelling Catheter Urinal Urinal # Voids 1 # Bowel Movements 1 - Labs CBC & Chem 7: 08/26/22 06:39 08/26/22 06:39
== END 2022-08-27 16:00 | disposition home or self-care (01) | DRG 675 ==
LOC: OR 05:34 → 6NMEDSUR 10:50 → OR 08-27 06:50
PROVIDERS: ADMIT Surgery; ATTEND Surgery
PROC: 0DNW0ZZ Release Peritoneum, Open Approach (ICD-10-PCS; 2022-08-24)
PROC: 0WUF0JZ Supplement Abdominal Wall with Synthetic Substitute, Open Approach (ICD-10-PCS; principal; 2022-08-24 07:00)
DX: R31.0 Gross hematuria (principal); R33.8 Other retention of urine; K43.2 Incisional hernia without obstruction or gangrene; H81.09 Meniere's disease, unspecified ear; I10 Essential (primary) hypertension; I48.91 Unspecified atrial fibrillation; J44.9 Chronic obstructive pulmonary disease, unspecified; K66.0 Peritoneal adhesions (postprocedural) (postinfection); N40.1 Benign prostatic hyperplasia with lower urinary tract symptoms; E78.5 Hyperlipidemia, unspecified; E03.9 Hypothyroidism, unspecified; G47.30 Sleep apnea, unspecified; Z79.01 Long term (current) use of anticoagulants; Z79.82 Long term (current) use of aspirin; Z79.890 Hormone replacement therapy; Z79.899 Other long term (current) drug therapy; Z86.73 Personal history of transient ischemic attack (TIA), and cerebral infarction without residual deficits; Z86.718 Personal history of other venous thrombosis and embolism; Z87.891 Personal history of nicotine dependence; Z88.1 Allergy status to other antibiotic agents; Z88.8 Allergy status to other drugs, medicaments and biological substances; Z95.0 Presence of cardiac pacemaker
CPT/HCPCS: 64488

== ENCOUNTER → 2022-10-02 | Outpatient (CLI) | payer MEDICARE, OTHER ==
[2022-10-02 17:38] LABS: Alternaria alternata IgE <0.10 kU/L; Aspergillus fumagatus IgE <0.10 kU/L; Birch IgE <0.10 kU/L; Cat Epith & Dander IgE <0.10 kU/L; Cladosporian herbarum IgE <0.10 kU/L; Cockroach IgE <0.10 kU/L; Dermato. farinae IgE <0.10 kU/L; Dog Dander IgE 0.18 kU/L; Elm IgE <0.10 kU/L; Maple (Box Elder) IgE <0.10 kU/L; Oak IgE <0.10 kU/L; Ragweed,Common IgE <0.10 kU/L; Red Top (Bentgrass) IgE <0.10 kU/L
== END | disposition home or self-care (01) ==
LOC: LABWHC1 11:24
PROVIDERS: ATTEND Allergy & Immunology
DX: J31.0 Chronic rhinitis (principal)
CPT/HCPCS: 36415; 82785; 86003

== ENCOUNTER → 2023-04-30 | Outpatient (CLI) | payer MEDICARE, OTHER ==
[2023-04-30 15:30] LABS: Basophils # (A) 0.06 X 10*3/uL (0.00-0.10); Basophils % (A) 0.9 %; Eosinophils # (A) 0.17 X 10*3/uL (0.04-0.35); Eosinophils % (A) 2.6 %; HCT 41.7 % (39.6-50.0); HGB 13.8 g/dL (13.0-17.0); Lymphocytes # (A) 1.75 X 10*3/uL (0.90-5.00); Lymphocytes % (A) 26.4 %; MCH 32.2 pg (27.0-32.0); MCHC 33.1 g/dL (32.0-37.0); MCV 97.4 FL (80.0-97.0); Mean Platelet Volume 10.4 FL (9.5-12.2); Monocytes # (A) 0.65 X 10*3/uL (0.20-1.00); Monocytes % (A) 9.8 %; NRBC Per 100 WBC 0 X 10*3/uL (0.00-0.01); Neutrophils # (A) 3.96 X 10*3/uL (1.80-7.70); Neutrophils % (A) 59.8 %; Platelet Count 182 X 10*3/uL (140-440); RBC 4.28 X 10*6/uL (4.40-5.60); RDW 14.6 % (11.5-14.5); WBC 6.62 X 10*3/uL (4.50-10.00)
[2023-04-30 16:02] LABS: Appearance,Urine Clear (Clear); Bilirubin,Urine Negative (Negative); Blood,Urine Small (Negative); Color,Urine Yellow (Yellow); Ketones,Urine Negative (Negative); Nitrite,Urine Positive (Negative); PH, Urine 6.5; Specific Gravity,Urine 1.018 (1.001-1.030)
[2023-04-30 16:03] LABS: BUN/Creat Ratio 17.75 Ratio (12.00-20.00); Blood Urea Nitrogen 21.3 mg/dL (9.0-27.0); Carbon Dioxide 25.4 mmol/L (21.6-31.8); Chloride 104 mmol/L (96-109); Glucose 90 mg/dL (70-110); Potassium 4.3 mmol/L (3.5-5.5); Sodium 139 mmol/L (135-145)
[2023-04-30 16:11] LABS: Bacteria,Urine 3+ (None Seen)
== END | disposition home or self-care (01) ==
LOC: LABPAT 07:59
PROVIDERS: ATTEND Urology
DX: Z01.812 Encounter for preprocedural laboratory examination (principal); N40.1 Benign prostatic hyperplasia with lower urinary tract symptoms; N21.9 Calculus of lower urinary tract, unspecified
CPT/HCPCS: 36415; 80048; 81001; 85025; 87086

== ENCOUNTER 2023-05-08 05:33 | Day surgery (SDC) | payer MEDICARE, OTHER ==
--- NOTE | 2023-05-07 19:23 | P.GSHP ---
History of Present Illness H&P Date: 05/07/23 82 yo male with symptomatic bph, recurrent uti, incomplete voiding, a bladder stone despite medical managemnt who ocmes for a bipolar turp. Alternatives and risks have been discussed. - Constitutional Constitutional: Denies chills, Denies fever - EENT Eyes: denies blurred vision, denies pain Ears, nose, mouth and throat: Denies headache, Denies sore throat - Cardiovascular Cardiovascular: Denies chest pain, Denies shortness of breath - Respiratory Respiratory: Denies cough, Denies 7 - Gastrointestinal Gastrointestinal: Denies abdominal pain, Denies diarrhea, Denies nausea, Denies vomiting - Genitourinary (Female) Genitourinary: Denies dysuria, Denies hematuria - Genitourinary (Male) Genitourinary: Denies dysuria, Denies hematuria - Musculoskeletal Musculoskeletal: Denies myalgias - Integumentary Integumentary: Denies pruritus, Denies rash - Neurological Neurological: Denies numbness, Denies weakness - Psychiatric Psychiatric: Denies anxiety, Denies depression - Endocrine Endocrine: Denies fatigue, Denies weight change Past Medical History Past Medical History: Atrial Fibrillation, Cancer, COPD, CVA/TIA, Deep Vein Thrombosis (DVT), Hyperlipidemia, Hypertension, Osteoarthritis (OA), Prostate Disorder, Sleep Apnea/CPAP/BIPAP, Thyroid Disorder Additional Past Medical History / Comment(s): Meniere's disease, BPH, DJD, arthiritis, chronic bradycardia, and chronic back pain, diverticulitis. uses cpap. hx melanoma, unaware of stroke and DVT dx. History of Any Multi-Drug Resistant Organisms: None Reported Date of last positivie culture/infection: 2001? MDRO Source:: KNEE Past Surgical History: Back Surgery, Bowel Resection, Hernia Repair, Orthopedic Surgery, Pacemaker Additional Past Surgical History / Comment(s): 04/11/15 EP STUDY . Low back surgery with rods and screws. Left knee fluid drained off and patellar scraped. RIGHT inguinal & abdominal hernia repair. Past Anesthesia/Blood Transfusion Reactions: No Reported Reaction Additional Past Anesthesia/Blood Transfusion Reaction / Comment(s): Pt has never recieved blood. Type of Cardiac Device: Permanent Pacemaker Device Placement Date:: 2018 Smoking Status: Former smoker - Past Family History Mother History Unknown: Yes Family Medical History: No Reported History Additional Family Medical History / Comment(s): passed at 79, unknown cause Father History Unknown: Yes Family Medical History: No Reported History Additional Family Medical History / Comment(s): passed at 81yrs. Medications and Allergies Home Medications Medication Instructions Recorded Confirmed Type Finasteride [Proscar] 5 mg PO DAILY 10/03/14 05/03/23 History Docusate [Colace] 100 mg PO BID 10/14/15 05/03/23 History Apixaban [Eliquis] 5 mg PO BID 09/10/18 05/03/23 History Fish Oil/Dha/Epa [Fish Oil 1,200 1 cap PO DAILY 09/10/18 05/03/23 History mg Fish Oil] Levothyroxine Sodium [Synthroid] 50 mcg PO DAILY 09/10/18 05/03/23 History Metoprolol Tartrate [Lopressor] 25 mg PO BID 09/10/18 05/03/23 History Simvastatin [Zocor] 40 mg PO HS 09/10/18 05/03/23 History Tamsulosin [Flomax] 0.4 mg PO BID 09/10/18 05/03/23 History Aspirin EC [Ecotrin Low Dose] 81 mg PO DAILY 08/10/21 05/03/23 History Meclizine [Antivert] 25 mg PO BID PRN 08/10/21 05/03/23 History Cider Vinegar [Apple Cider Vinegar] 300 mg PO DAILY 08/08/22 05/03/23 History Multivitamins, Thera [Multivitamin 1 tab PO DAILY 08/21/22 05/03/23 History (formulary)] HYDROcodone/APAP 5-325MG [[place] 1 tab PO QID 05/03/23 05/03/23 History 5-325] Allergies Allergy/AdvReac Type Severity Reaction Status Date / Time atorvastatin Allergy PER Verified 05/03/23 10:57 [facility] cephalexin [From Keflex] Allergy PER Verified 05/03/23 10:57 [facility] duloxetine Allergy PER Verified 05/03/23 10:57 [facility] escitalopram [From Lexapro] Allergy PER Verified 05/03/23 10:57 [facility] gabapentin Allergy PER Verified 05/03/23 10:57 [facility] levofloxacin [From Levaquin] Allergy PER Verified 05/03/23 10:57 [facility] niacin Allergy PER Verified 05/03/23 10:57 [facility] terazosin Allergy PER Verified 05/03/23 10:57 [facility] Surgical - Exam - General well developed, well nourished, no distress - Eyes normal ocular movement, no icteric - ENT no hearing loss, no congestion - Neck no masses, trachea midline - Respiratory normal respiratory effort, clear to auscultation - Abdomen Abdomen: soft, non tender, no guarding, no rigid, no rebound - Integumentary no rash, no abnormal pigmentation - Neurologic no disoriented, no combative - Psychiatric oriented to time, oriented to person, oriented to place, speech is normal, memory intact Assessment and Plan Assessment: Impression: bph with obstruction, incomplete bladder emptying, bladder stone with multiple medical comorbidities. Plan: bipolar turp and cystolithotripsy.
[~2023-05-08 05:33] MED LIST changes: -ACETAMINOPHEN TAB 500 MG TAB PO PRN; +AMPICILLIN 1,000 MG in SODIUM CHLORIDE 0.9% 50 ML IVPB PRN; -HEPARIN SODIUM,PORCINE/PF 5,000 UNIT/0.5 ML SYRINGE SQ PRN; -ONDANSETRON 4 MG/2 ML VIAL IVP ONE
[2023-05-08] MEDS ORDERED: ONDANSETRON 4 MG/2 ML VIAL ONE (07:05)
[2023-05-08] MEDS: LACTATED RINGERS 1,000 ML IV ONE ×2 (07:07→09:11)
[2023-05-08] MEDS: ONDANSETRON 4 MG/2 ML VIAL IVP ONE (07:09)
[2023-05-08] MEDS: DEXAMETHASONE SOD PHOSPHATE 4 MG/ML 1 ML VIAL IVP ONE (07:10)
[2023-05-08] MEDS ORDERED: ePHEDrine 50 MG/ML 1 ML VIAL ONE (07:32)
[2023-05-08] MEDS ORDERED: PROPOFOL 10 MG/ML 20 ML VIAL IV ONE (07:32)
[2023-05-08] MEDS ORDERED: LIDOCAINE 1% INJ 10MG/ML (20 ML MDV) ONE (07:32)
[2023-05-08] MEDS ORDERED: SUGAMMADEX SODIUM 200 MG/2 ML SDV IV ONE (07:32)
[2023-05-08] MEDS ORDERED: ROCURONIUM 10 MG/ML (5 ML VIAL) IV ONE (07:32)
[2023-05-08] MEDS ORDERED: fentaNYL (PF) 50 MCG/ML 2 ML AMP ONE (07:32)
[2023-05-08] MEDS ORDERED: SUCCINYLCHOLINE CHLORIDE 200 MG/10 ML VIAL IV ONE (07:32)
[2023-05-08] MEDS: GENTAMICIN 120 MG in SODIUM CHLORIDE 0.9% 100 ML IVPB PRN (07:35)
--- NOTE | 2023-05-08 08:23 | XR ---
EXAMINATION TYPE: XR KUB DATE OF EXAM: 05/08/2023 Comparison: 06/03/2021 Clinical History: 82-year-old male preoperative assessment for transurethral resection kidney stones Findings: Posterior lumbar fusion hardware. Well in the abdominal pelvic junction from prior mesh repair. Sever e spondylotic change above the fusion probably corresponding to L1-L2. There is a 1.6 cm calcificatio n in the right side of the pelvis. Unclear if this represents a bladder stone or vascular calcificati on. Other pelvic lymph nodes are present. Moderate stool in the left side of the abdomen. Right atria l and right ventricular pacer leads noted. Gassy bowel. This obscures the renal shadows. Impression: 1.6 cm calcification in the right pelvis could represent a bladder stone or vascular calcification. A dditional smaller pelvic lymph nodes are present. Gassy bowel obscuring the renal shadows.
--- NOTE | 2023-05-08 09:49 | P.OP ---
Date of Procedure: 05/08/23 Preoperative Diagnosis: BPH with obstruction, incomplete bladder emptying, bladder stone Postoperative Diagnosis: Same Procedure(s) Performed: Cystoscopy, cystolithotripsy with laser, TURP Anesthesia: KARLI Surgeon: Asif Velarde Estimated Blood Loss (ml): 100 Pathology: other (Prostate, stone) Condition: stable Disposition: PACU Indications for Procedure: Patient is a 82. He has marked urinary symptoms, recurrent urinary infection. He found a BPH. Incomplete bladder emptying. A bladder stone. He comes for TURP and cystoscopy lithotripsy Description of Procedure: Patient brought to the operating suite. Given general anesthesia. Placed lithotomy position with sterile prep and drape. I first used cystoscopy a 17- Lithuanian sheath and Foroblique lens. There is a trilobar friable prostate. The bladder mulligan trabeculated. I do not easily see the stone. I introduced the resectoscope into the bladder. With the 30 lens I inspect the bladder and see the stone. I see the prostate which trilobar obstruction. With the Mcclain resectoscope and super second loop I resect the intravesical middle lobe. I then resect the left lateral lobe from bladder neck to verumontanum from 12:00 to 6:00. I then resect the right lateral lobe. I then resect the redundant floor tissue. I freed the bladder chips with the Ruthy evacuator. I cauterized the prosthetic fossa. I removed the resectoscope. Reintroduced the cystoscope. Through the 21-Lithuanian sheath identifies the 550 laser probe and break the stone into tiny fragments and irrigated out of the bladder. I then reintroduced the resectoscope. I cauterize any more bleeding. Inspect t he bladder there is no remaining chips. I introduced an 18 coud-tip cath into the bladder with clear to very light pink urine return. The patient is awake and returned recovery room in good condition. Blood loss is approximately 100 mL. He'll be discharged home upon recovery.
[2023-05-08 09:54] VITALS: TEMP 97
[2023-05-08] MEDS ORDERED: LACTATED RINGERS 1,000 ML IV SCH (10:15)
[2023-05-08] MEDS ORDERED: ONDANSETRON 4 MG/2 ML VIAL IVP ONE (10:15)
[2023-05-08] MEDS ORDERED: LIDOCAINE 1% (10MG/ML) FOR IV START INTRADERMA PRN (10:15)
[2023-05-08] MEDS ORDERED: DEXAMETHASONE SOD PHOSPHATE 4 MG/ML 1 ML VIAL IV ONE (10:15)
[2023-05-08] MEDS ORDERED: HYDROmorphone 0.5 MG/0.5 ML SYRINGE IVP PRN (10:15)
[2023-05-08 11:03] VITALS: RESP 16
[2023-05-08 11:37] VITALS: BP 114/61; PULSE 63
== END 2023-05-08 11:51 | disposition home or self-care (01) ==
LOC: OR 05:33
PROVIDERS: ATTEND Urology
DX: N40.1 Benign prostatic hyperplasia with lower urinary tract symptoms (principal); N13.8 Other obstructive and reflux uropathy; M19.90 Unspecified osteoarthritis, unspecified site; J44.9 Chronic obstructive pulmonary disease, unspecified; I48.91 Unspecified atrial fibrillation; I10 Essential (primary) hypertension; N21.0 Calculus in bladder; H81.09 Meniere's disease, unspecified ear; G89.29 Other chronic pain; E03.9 Hypothyroidism, unspecified; G47.33 Obstructive sleep apnea (adult) (pediatric); E78.5 Hyperlipidemia, unspecified; Z79.01 Long term (current) use of anticoagulants; Z79.890 Hormone replacement therapy; Z85.820 Personal history of malignant melanoma of skin; Z86.718 Personal history of other venous thrombosis and embolism; Z86.73 Personal history of transient ischemic attack (TIA), and cerebral infarction without residual deficits; Z87.891 Personal history of nicotine dependence; Z88.1 Allergy status to other antibiotic agents; Z88.8 Allergy status to other drugs, medicaments and biological substances; Z95.0 Presence of cardiac pacemaker; Z79.899 Other long term (current) drug therapy
CPT/HCPCS: 88305; 82365; 74018; 52317; 52601; C1758; J0330; J1100; J2405; J2001; J3010; J1580; J2704

== ENCOUNTER 2023-05-12 06:34 | Emergency (ER) | payer MEDICARE, OTHER ==
[2023-05-12 06:45] LABS: Glucose,Whole Blood 92 mg/dL (70-110)
--- NOTE | 2023-05-12 06:54 | ED ---
General Adult HPI - General Source: patient, EMS, RN notes reviewed, old records reviewed Mode of arrival: EMS Limitations: no limitations <Hosea Vyas - Last Filed: 05/12/23 06:54> <Bam Preston - Last Filed: 05/12/23 08:42> - General Stated complaint: Possible stroke Time Seen by Provider: 05/12/23 06:36 - History of Present Illness Initial comments: 82-year-old male history of atrial fibrillation presents with left-sided weakness which began when he woke this morning at approximately 6 AM. Patient has been off his Eliquis for the past 10 days according to paramedics secondary to urological procedure. Patient had gone to bed at approximately 9:30 PM last night. He woke with symptoms of left facial droop, left arm and leg paralysis. Patient denies headache. Denies pain complaints. (Hosea Vyas) - Related Data Home Medications Medication Instructions Recorded Confirmed Finasteride [Proscar] 5 mg PO DAILY 10/03/14 05/08/23 Docusate [Colace] 100 mg PO BID 10/14/15 05/08/23 Apixaban [Eliquis] 5 mg PO BID 09/10/18 05/08/23 Fish Oil/Dha/Epa [Fish Oil 1,200 1 cap PO DAILY 09/10/18 05/08/23 mg Fish Oil] Levothyroxine Sodium [Synthroid] 50 mcg PO DAILY 09/10/18 05/08/23 Metoprolol Tartrate [Lopressor] 25 mg PO BID 09/10/18 05/08/23 Simvastatin [Zocor] 40 mg PO HS 09/10/18 05/08/23 Tamsulosin [Flomax] 0.4 mg PO BID 09/10/18 05/08/23 Aspirin EC [Ecotrin Low Dose] 81 mg PO DAILY 08/10/21 05/08/23 Meclizine [Antivert] 25 mg PO BID PRN 08/10/21 05/08/23 Cider Vinegar [Apple Cider Vinegar] 300 mg PO DAILY 08/08/22 05/08/23 Multivitamins, Thera [Multivitamin 1 tab PO DAILY 08/21/22 05/08/23 (formulary)] HYDROcodone/APAP 5-325MG [[place] 1 tab PO QID 05/03/23 05/08/23 5-325] Allergies Allergy/AdvReac Type Severity Reaction Status Date / Time atorvastatin Allergy PER Verified 05/08/23 06:41 [facility] cephalexin [From Keflex] Allergy PER Verified 05/08/23 06:41 [facility] duloxetine Allergy PER Verified 05/08/23 06:41 [facility] escitalopram [From Lexapro] Allergy PER Verified 05/08/23 06:41 [facility] gabapentin Allergy PER Verified 05/08/23 06:41 [facility] levofloxacin [From Levaquin] Allergy PER Verified 05/08/23 06:41 [facility] niacin Allergy PER Verified 05/08/23 06:41 [facility] terazosin Allergy PER Verified 05/08/23 06:41 [facility] Review of Systems ROS Other: All systems not noted in ROS Statement are negative. <Hosea Vyas - Last Filed: 05/12/23 06:54> ROS Other: All systems not noted in ROS Statement are negative. <Bam Preston - Last Filed: 05/12/23 08:42> ROS Statement: Those systems with pertinent positive or pertinent negative responses have been documented in the HPI. Past Medical History Past Medical History: Atrial Fibrillation, COPD, CVA/TIA, Deep Vein Thrombosis (DVT), Hyperlipidemia, Hypertension, Prostate Disorder, Sleep Apnea/CPAP/BIPAP, Thyroid Disorder Additional Past Medical History / Comment(s): Meniere's disease, BPH, DJD, arthiritis, chronic bradycardia, and chronic back pain, diverticulitis. uses cpap History of Any Multi-Drug Resistant Organisms: None Reported Date of last positivie culture/infection: 2001? MDRO Source:: KNEE Past Surgical History: Back Surgery, Bowel Resection, Hernia Repair, Orthopedic Surgery, Pacemaker Additional Past Surgical History / Comment(s): 04/11/15 EP STUDY . Low back surgery with rods and screws. Left knee fluid drained off and patellar scraped. RIGHT inguinal & abdominal hernia repair. Past Anesthesia/Blood Transfusion Reactions: No Reported Reaction Additional Past Anesthesia/Blood Transfusion Reaction / Comment(s): Pt has never recieved blood. Type of Cardiac Device: Permanent Pacemaker Device Placement Date:: unk Past Psychological History: No Psychological Hx Reported Smoking Status: Former smoker - Past Family History Mother History Unknown: Yes Family Medical History: No Reported History Additional Family Medical History / Comment(s): passed at 79, unknown cause Father History Unknown: Yes Family Medical History: No Reported History Additional Family Medical History / Comment(s): passed at 81yrs. <Hosea Vyas - Last Filed: 05/12/23 06:54> General Exam Limitations: no limitations General appearance: alert Head exam: Present: atraumatic, normocephalic Eye exam: Present: normal appearance, PERRL Neck exam: Present: normal inspection. Absent: tenderness Respiratory exam: Present: normal lung sounds bilaterally. Absent: respiratory distress Cardiovascular Exam: Present: regular rate, irregular rhythm GI/Abdominal exam: Present: soft. Absent: distended, tenderness Extremities exam: Present: normal capillary refill. Absent: pedal edema Neurological exam: Present: alert, oriented X3, motor sensory deficit (Patient with left facial droop, left arm and leg paralysis, initial NIH of 14). Absent: CN II-XII intact Psychiatric exam: Present: normal affect, normal mood Skin exam: Present: warm, dry, intact. Absent: cyanosis, diaphoretic <Hosea Vyas N - Last Filed: 05/12/23 06:54> Course <Hosea Vyas - Last Filed: 05/12/23 06:54> Vital Signs 05/12/23 05/12/23 05/12/23 07:02 07:10 07:25 Temperature 98.0 F Pulse Rate 89 93 88 Respiratory 16 18 18 Rate Blood Pressure 130/71 128/70 136/77 O2 Sat by Pulse 94 L 97 97 Oximetry 05/12/23 05/12/23 05/12/23 07:40 07:55 08:10 Temperature Pulse Rate 87 77 84 Respiratory 18 18 18 Rate Blood Pressure 138/80 127/80 122/59 O2 Sat by Pulse 94 L 96 96 Oximetry 05/12/23 08:24 Temperature Pulse Rate 83 Respiratory 18 Rate Blood Pressure 126/76 O2 Sat by Pulse 98 Oximetry - Reevaluation(s) Reevaluation #1: 05/12/23 06:[address] Fritz, covering for stroke intervention, awaiting CT images for review. (Hosea Vyas) Reevaluation #2: 05/12/23 0700 Care signed out at shift change to Dr. Preston pending all lab testing, CT brain, CT angiography and reevaluation. (Hosea Vyas) Medical Decision Making <Hosea Vyas - Last Filed: 05/12/23 06:54> - Lab Data Result diagrams: 05/12/23 06:43 05/12/23 06:43 <Bam Preston - Last Filed: 05/12/23 08:42> - Medical Decision Making Was pt. sent in by a medical professional or institution (, PA, HALL SUPERVISOR, urgent care, hospital, or custodial...) When possible be specific @ -No Did you speak to anyone other than the patient for history (EMS, parent, family, police, friend...)? What history was obtained from this source @ -Paramedics Did you review nursing and triage notes (agree or disagree)? Why? @ -I reviewed and agree with nursing and triage notes Were old charts reviewed (outside hosp., previous admission, EMS record, old EKG, old radiological studies, urgent care reports/EKG's, custodial records)? Report findings @ -No old charts were reviewed Differential Diagnosis (chest pain, altered mental status, abdominal pain women, abdominal pain men, vaginal bleeding, weakness, fever, dyspnea, syncope, heada so, dizziness, GI bleed, back pain, seizure, CVA, palpatations, mental health, musculoskeletal)? @Differential CVA Ischemic stroke, hemorrhagic stroke, brain tumor, atypical migraine, Wernicke's encephalopathy, seizure, multiple sclerosis, meningitis, encephalitis, hypoglycemia, Guillain-Mccoy, electrolytes disturbance, myasthenia gravis.... This is not meant to be an all-inclusive list EKG interpreted by me (3pts min.). @ - -Atrial fibrillation rate of 87, QRS duration 128, QTc [address] segment elevation. X-rays interpreted by me (1pt min.). @ -Chest x-ray pending CT interpreted by me (1pt min.). @ -CT brain pending, CT angiography pending U/S interpreted by me (1pt. min.). @ -None done What testing was considered but not performed or refused? (CT, X-rays, U/S, labs)? Why? @ -None What meds were considered but not given or refused? Why? @ -None Did you discuss the management of the patient with other professionals (professionals i.e. , PA, HALL SUPERVISOR, lab, RT, psych nurse, social media developer, biofuels production technician, teacher, public health service officer, housing case manager)? Give summary @ -[Code stroke activation and case immediately discussed with Dr. Fritz. Was smoking cessation discussed for >3mins.? @ -No Was critical care preformed (if so, how long)? @ -Yes, 35 minutes Were there social determinants of health that impacted care today? How? (Homelessness, low income, unemployed, alcoholism, drug addiction, transportation, low edu. Level, literacy, decrease access to med. care, [facility], rehab)? @ -No Was there de-escalation of care discussed even if they declined (Discuss DNR or withdrawal of care, Hospice)? DNR status @ -No What co-morbidities impacted this encounter? (DM, HTN, Smoking, COPD, CAD, Cancer, CVA, ARF, Chemo, Hep., AIDS, mental health diagnosis, sleep apnea, morbid obesity)? @ -Atrial fibrillation, off anticoagulation Was patient admitted / discharged? Hospital course, mention meds given and route, prescriptions, significant lab abnormalities, going to OR and other pertinent info. @ -[Patient care signed out to Dr. Preston at shift change. [facility] Was patient admitted / discharged? Hospital course, mention meds given and route, prescriptions, significant lab abnormalities, going to OR and other pertinent info. @ -I spoke with Dr. Bland and he wanted the patient transferred to [facility] and I made arrangements for that to occur. CT of the brain was interpreted by myself there is a small hemorrhage in the right cerebellum. Undiagnosed new problem with uncertain prognosis? @ -I Drug Therapy requiring intensive monitoring for toxicity (Heparin, Nitro, Insulin, Cardizem)? @ -[No] Were any procedures done? @ -[No] Diagnosis/symptom? @ -CVA Acute, or Chronic, or Acute on Chronic? @ -Acute Uncomplicated (without systemic symptoms) or Complicated (systemic symptoms)? @ -Complicated Side effects of treatment? @ -[No] Exacerbation, Progression, or Severe Exacerbation? @ -[No] Poses a threat to life or bodily function? How? (Chest pain, [place], NM, pneumonia, PE, COPD, DKA, ARF, appy, cholecystitis, CVA, Diverticulitis, Homicidal, Suicidal, threat to staff... and all critical care pts) @ -Yes this can lead to severe stroke and (Bam Preston) - Lab Data Lab Results 05/12/23 05/12/23 05/12/23 Range/Units 06:43 06:43 06:43 WBC 8.1 (3.8-10.6) k/uL RBC 4.36 (4.30-5.90) m/uL Hgb 14.5 (13.0-17.5) gm/dL Hct 42.1 (39.0-53.0) % MCV 96.5 (80.0-100.0) fL MCH 33.4 (25.0-35.0) pg MCHC 34.5 (31.0-37.0) g/dL RDW 14.0 (11.5-15.5) % Plt Count 180 (150-450) k/uL MPV 8.3 Neutrophils % 53 % Lymphocytes % 29 % Monocytes % 9 % Eosinophils % 5 % Basophils % 0 % Neutrophils # 4.3 (1.3-7.7) k/uL Lymphocytes # 2.3 (1.0-4.8) k/uL Monocytes # 0.7 (0-1.0) k/uL Eosinophils # 0.4 (0-0.7) k/uL Basophils # 0.0 (0-0.2) k/uL PT 10.8 (10.0-12.5) sec INR 1.0 (<1.2) APTT 24.9 (22.0-30.0) sec Sodium 136 L (137-145) mmol/L Potassium 4.1 (3.5-5.1) mmol/L Chloride 106 (98-107) mmol/L Carbon Dioxide 23 (22-30) mmol/L Anion Gap 7 mmol/L BUN 22 H (9-20) mg/dL Creatinine 1.38 H (0.66-1.25) mg/dL Est GFR (CKD-EPI)AfAm 56 (>60 ml/min/1.73 sqM) Est GFR (CKD-EPI)NonAf 48 (>60 ml/min/1.73 sqM) Glucose 99 (74-99) mg/dL POC Glucose (mg/dL) (70-110) mg/dL POC Glu Generation Engineering Technologist ID Calcium 9.0 (8.4-10.2) mg/dL Total Bilirubin 0.8 (0.2-1.3) mg/dL AST 34 (17-59) U/L ALT 21 (4-49) U/L Alkaline Phosphatase 94 (38-126) U/L Creatine Kinase 102 (55-170) U/L Troponin I (0.000-0.034) ng/mL Total Protein 6.4 (6.3-8.2) g/dL Albumin 3.7 (3.5-5.0) g/dL 05/12/23 05/12/23 05/12/23 Range/Units 06:43 06:43 07:07 WBC (3.8-10.6) k/uL RBC (4.30-5.90) m/uL Hgb (13.0-17.5) gm/dL Hct (39.0-53.0) % MCV (80.0-100.0) fL MCH (25.0-35.0) pg MCHC (31.0-37.0) g/dL RDW (11.5-15.5) % Plt Count (150-450) k/uL MPV Neutrophils % % Lymphocytes % % Monocytes % % Eosinophils % % Basophils % % Neutrophils # (1.3-7.7) k/uL Lymphocytes # (1.0-4.8) k/uL Monocytes # (0-1.0) k/uL Eosinophils # (0-0.7) k/uL Basophils # (0-0.2) k/uL PT (10.0-12.5) sec INR (<1.2) APTT (22.0-30.0) sec Sodium (137-145) mmol/L Potassium (3.5-5.1) mmol/L Chloride (98-107) mmol/L Carbon Dioxide (22-30) mmol/L Anion Gap mmol/L BUN (9-20) mg/dL Creatinine (0.66-1.25) mg/dL Est GFR (CKD-EPI)AfAm (>60 ml/min/1.73 sqM) Est GFR (CKD-EPI)NonAf (>60 ml/min/1.73 sqM) Glucose (74-99) mg/dL POC Glucose (mg/dL) 92 98 (70-110) mg/dL POC Glu Generation Engineering Technologist ID Mika Burnett Taylor Calcium (8.4-10.2) mg/dL Total Bilirubin (0.2-1.3) mg/dL AST (17-59) U/L ALT (4-49) U/L Alkaline Phosphatase (38-126) U/L Creatine Kinase (55-170) U/L Troponin I 0.015 (0.000-0.034) ng/mL Total Protein (6.3-8.2) g/dL Albumin (3.5-5.0) g/dL Critical Care Time Critical Care Time: Yes Total Critical Care Time: 35 <Hosea Vyas - Last Filed: 05/12/23 06:54> Disposition <Hosea Vyas - Last Filed: 05/12/23 06:54> Time of Disposition: 08:13 - Out of Hospital Transfer - Req. Specs Out of Hospital Transfer - Requested Specifics: Other Emergency Center ([facility]) <Bam Preston - Last Filed: 05/12/23 08:42> Clinical Impression: Cerebrovascular accident (CVA) Disposition: OTHER INSTITUTION NOT DEFINED Referrals: Matias Hernandez MD [Primary Care Provider] - 1-2 days
[2023-05-12 06:57] LABS: Basophils % (A) 0 %; Eosinophils # (A) 0.4 k/uL (0-0.7); Eosinophils % (A) 5 %; HCT 42.1 % (39.0-53.0); HGB 14.5 gm/dL (13.0-17.5); Lymphocytes # (A) 2.3 k/uL (1.0-4.8); Lymphocytes % (A) 29 %; MCH 33.4 pg (25.0-35.0); MCHC 34.5 g/dL (31.0-37.0); MCV 96.5 fL (80.0-100.0); Mean Platelet Volume 8.3; Monocytes # (A) 0.7 k/uL (0-1.0); Monocytes % (A) 9 %; Neutrophils # (A) 4.3 k/uL (1.3-7.7); Neutrophils % (A) 53 %; Platelet Count 180 k/uL (150-450); RBC 4.36 m/uL (4.30-5.90); WBC 8.1 k/uL (3.8-10.6)
[2023-05-12 07:07] LABS: Partial Thromboplastin Time 24.9 sec (22.0-30.0); Prothrombin Time 10.8 sec (10.0-12.5)
[2023-05-12 07:09] LABS: Glucose,Whole Blood 98 mg/dL (70-110)
[2023-05-12] MEDS: SODIUM CHLORIDE 0.9% 1,000 ML IV ONE (07:17)
--- NOTE | 2023-05-12 07:17 | CT ---
EXAMINATION TYPE: CT brain wo con DATE OF EXAM: 05/12/2023 COMPARISON: 08/10/2021 HISTORY: 82-year-old male neurologic deficit, acute, stroke suspected, CODE STROKE TECHNIQUE: Examination was done in axial plane without intravenous contrast. Coronal and sagittal r econstructions performed. CT DLP: 1091.7 mGycm Automated exposure control for dose reduction was used. FINDINGS: New small 6 mm hyperdensity lateral right cerebellar hemisphere. No other evidence for acute intracra nial hemorrhage, acute ischemic change, mass, mass effect, midline shift, extra-axial fluid collectio n. No hydrocephalus. No effacement of cerebral sulci or basal subarachnoid cisterns. Castillo-white matte r differentiation is maintained. Mild to moderate patchy periventricular white matter hypodensities. Mild volume loss overlying the bilateral cerebral convexities. At the scattered calcifications in the bilateral carotid siphons. Moderate mucosal thickening ethmoid air cells. Previous resection changes right mastoid process with improved aeration. IMPRESSION: 1. New 6 mm hyperdense focus compatible with small intraparenchymal hemorrhage lateral right cerebell ar hemisphere. 2. No midline shift, evolving large vascular territory infarction, or herniation is seen. Findings called to Dr. Vyas in the ER at 7:13 AM.
[2023-05-12 07:24] LABS: ALT 21 U/L (4-49); AST 34 U/L (17-59); African American GFR (CKD) 56 (>60 ml/min/1.73 sqM); Albumin 3.7 g/dL (3.5-5.0); Alkaline Phosphatase 94 U/L (38-126); Anion Gap 7 mmol/L; Blood Urea Nitrogen 22 mg/dL (9-20); Carbon Dioxide 23 mmol/L (22-30); Chloride 106 mmol/L (98-107); Creatine Kinase 102 U/L (55-170); Glucose 99 mg/dL (74-99); Non-African American GFR(CKD) 48 (>60 ml/min/1.73 sqM); Potassium 4.1 mmol/L (3.5-5.1); Sodium 136 mmol/L (137-145); Total Bilirubin 0.8 mg/dL (0.2-1.3); Total Protein 6.4 g/dL (6.3-8.2)
--- NOTE | 2023-05-12 07:31 | CT ---
EXAMINATION TYPE: CT angio head neck DATE OF EXAM: 05/12/2023 COMPARISON: Brain same day HISTORY: 82-year-old male weakness, CODE STROKE TECHNIQUE: Contiguous axial scanning of the head and neck performed with IV Contrast, patient injecte d with 65 ml mL of Isovue 370. Coronal and sagittal reconstructions performed. 3-D reconstructions ge nerated on a dedicated independent workstation. CT DLP: 453.2 mGycm Automated exposure control for dose reduction was used. FINDINGS: Neck: 7 mm hypodensity left thyroid lobe. Left anterior chest wall pacemaker generator. Conventional branching anatomy. The right vertebral artery is dominant. Both vertebral arteries are otherwise maintained throughout t he course. The bilateral common and internal carotid arteries are widely patent with only minimal atheroscleroti c calcification in the left carotid bulb. NASCET criteria is utilized. Head: The nondominant left vertebral artery terminates as a PICA branch. The right vertebral and basilar ar kwesi are otherwise patent. The bilateral P1 segment senior cognos developer are hypoplastic with persistent origin of the bilateral posterior cerebral arteries. Posterior circulation otherwise patent. Bilateral apical scarring calcifications throughout the carotid siphons. The left MCA and bilateral A CA branches are patent. There is 3 mm, short segment subtotal occlusion involving the distal M1 segment right MCA with opacif ication of its distal branches. Dural venous sinuses are patent. IMPRESSION: NECK: 1. WIDELY PATENT CAROTID AND VERTEBRAL ARTERIES OF THE NECK. 2. DOMINANT RIGHT VERTEBRAL ARTERY. HEAD: 3. A 3 mm, short segment subtotal occlusion involving the distal M1 segment right MCA. There is subse quent vessel enhancement after this area of narrowing. 4. Anatomic variation with persistent origin bilateral senior cognos developer. Findings called to Dr. Preston in the ER at 7:27 AM.
[2023-05-12 07:59] VITALS: RESP 18; TEMP 98
--- NOTE | 2023-05-12 08:02 | XR ---
EXAMINATION TYPE: XR chest 1V portable DATE OF EXAM: 05/12/2023 Comparison: 08/08/2022 Clinical History: 82-year-old male confusion, altered mental status Findings: Left anterior chest wall pacemaker generator with right atrial and right ventricular leads. Asymmetri c elevation right hemidiaphragm. 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 Some mi ld patchy density peripherally in the left base and strandy atelectasis right base. Upper lungs are c lear. Heart normal size. Impression: 1. Some mild bibasilar densities favored to represent patchy atelectasis. 2. Asymmetric elevation right hemidiaphragm with colonic interposition incidentally noted.
[2023-05-12 09:08] VITALS: BP 126/81; PULSE 83
== END 2023-05-12 08:47 | disposition other institution (70) ==
LOC: EC 06:34
DX: I63.9 Cerebral infarction, unspecified (principal); E78.5 Hyperlipidemia, unspecified; G47.30 Sleep apnea, unspecified; I10 Essential (primary) hypertension; I48.91 Unspecified atrial fibrillation; J44.9 Chronic obstructive pulmonary disease, unspecified; E07.9 Disorder of thyroid, unspecified; Z79.01 Long term (current) use of anticoagulants; Z79.890 Hormone replacement therapy; Z79.899 Other long term (current) drug therapy; Z87.891 Personal history of nicotine dependence; Z88.1 Allergy status to other antibiotic agents; Z88.8 Allergy status to other drugs, medicaments and biological substances; Z95.0 Presence of cardiac pacemaker; Z86.73 Personal history of transient ischemic attack (TIA), and cerebral infarction without residual deficits
CPT/HCPCS: 36415; 93005; 80053; 82550; 84484; 85025; 85610; 85730; 71045; 70496; 70450; 70498; 99291; 96360; Q9967

== ENCOUNTER 2023-07-16 11:17 | Emergency (ER) | payer MEDICARE, OTHER ==
--- NOTE | 2023-07-16 12:34 | ED ---
General Adult HPI - General Time Seen by Provider: 07/16/23 12:00 Source: patient, RN notes reviewed, old records reviewed - History of Present Illness Initial comments: This is an 82-year-old male who presents to the emergency department complaining of left-sided chest pain. Patient states pain started about 730 this morning shortly after waking up. Patient has a pacemaker in place and states it has been slowing down and is in need of replacement soon. Patient states he was just resting when the chest pain started. Patient denies any radiation of pain patient shortness of breath or patient has any fever chills or cough. Patient states it is reproducible if he presses over the pacemaker itself. Patient denies any lightheadedness or dizziness patient has abdominal pain patient has nausea vomiting diarrhea. Patient denies any diaphoretic episode. Patient has any swelling to the calves or calf tenderness. Patient states the pain does i ncrease if he moves his neck as well. - Related Data Home Medications Medication Instructions Recorded Confirmed Finasteride [Proscar] 5 mg PO DAILY 10/03/14 05/08/23 Docusate [Colace] 100 mg PO BID 10/14/15 05/08/23 Apixaban [Eliquis] 5 mg PO BID 09/10/18 05/08/23 Fish Oil/Dha/Epa [Fish Oil 1,200 1 cap PO DAILY 09/10/18 05/08/23 mg Fish Oil] Levothyroxine Sodium [Synthroid] 50 mcg PO DAILY 09/10/18 05/08/23 Metoprolol Tartrate [Lopressor] 25 mg PO BID 09/10/18 05/08/23 Simvastatin [Zocor] 40 mg PO HS 09/10/18 05/08/23 Tamsulosin [Flomax] 0.4 mg PO BID 09/10/18 05/08/23 Aspirin EC [Ecotrin Low Dose] 81 mg PO DAILY 08/10/21 05/08/23 Meclizine [Antivert] 25 mg PO BID PRN 08/10/21 05/08/23 Cider Vinegar [Apple Cider Vinegar] 300 mg PO DAILY 08/08/22 05/08/23 Multivitamins, Thera [Multivitamin 1 tab PO DAILY 08/21/22 05/08/23 (formulary)] HYDROcodone/APAP 5-325MG [[place] 1 tab PO QID 05/03/23 05/08/23 5-325] Allergies Allergy/AdvReac Type Severity Reaction Status Date / Time atorvastatin Allergy PER Verified 07/16/23 12:30 [facility] cephalexin [From Keflex] Allergy PER Verified 07/16/23 12:30 [facility] duloxetine Allergy PER Verified 07/16/23 12:30 [facility] escitalopram [From Lexapro] Allergy PER Verified 07/16/23 12:30 [facility] gabapentin Allergy PER Verified 07/16/23 12:30 [facility] levofloxacin [From Levaquin] Allergy PER Verified 07/16/23 12:30 [facility] niacin Allergy PER Verified 07/16/23 12:30 [facility] terazosin Allergy PER Verified 07/16/23 12:30 [facility] Review of Systems ROS Statement: Those systems with pertinent positive or pertinent negative responses have been documented in the HPI. ROS Other: All systems not noted in ROS Statement are negative. Past Medical History Past Medical History: Atrial Fibrillation, COPD, CVA/TIA, Deep Vein Thrombosis (DVT), Hyperlipidemia, Hypertension, Prostate Disorder, Sleep Apnea/CPAP/BIPAP, Thyroid Disorder Additional Past Medical History / Comment(s): Meniere's disease, BPH, DJD, arthiritis, chronic bradycardia, and chronic back pain, diverticulitis. uses cpap History of Any Multi-Drug Resistant Organisms: None Reported Date of last positivie culture/infection: 2001? MDRO Source:: KNEE Past Surgical History: Back Surgery, Bowel Resection, Hernia Repair, Orthopedic Surgery, Pacemaker Additional Past Surgical History / Comment(s): 04/11/15 EP STUDY . Low back surgery with rods and screws. Left knee fluid drained off and patellar scraped. RIGHT inguinal & abdominal hernia repair. Past Anesthesia/Blood Transfusion Reactions: No Reported Reaction Additional Past Anesthesia/Blood Transfusion Reaction / Comment(s): Pt has never recieved blood. Type of Cardiac Device: Permanent Pacemaker Device Placement Date:: unk Past Psychological History: No Psychological Hx Reported Smoking Status: Former smoker - Past Family History Mother History Unknown: Yes Family Medical History: No Reported History Additional Family Medical History / Comment(s): passed at 79, unknown cause Father History Unknown: Yes Family Medical History: No Reported History Additional Family Medical History / Comment(s): passed at 81yrs. General Exam - General Exam Comments Initial Comments: GENERAL: Patient is well-developed and well-nourished. Patient is nontoxic and well- hydrated and is in mild distress. ENT: Neck is soft and supple. No significant lymphadenopathy is noted. Oropharynx is clear. Moist mucous membranes. Neck has full range of motion without eliciting any pain. EYES: The sclera were anicteric and conjunctiva were pink and moist. Extraocular movements were intact and pupils were equal round and reactive to light. Eyelids were unremarkable. PULMONARY: Unlabored respirations. Good breath sounds bilaterally. No audible rales rhonchi or wheezing was noted. CARDIOVASCULAR: There is a regular rate and rhythm without any murmurs gallops or rubs. Pain is reproducible on palpating the pacemaker ABDOMEN: Soft and nontender with normal bowel sounds. SKIN: Skin is clear with no lesions or rashes and otherwise unremarkable. NEUROLOGIC: Patient is alert and oriented x3. Cranial nerves II through XII are grossly intact. Motor and sensory are also intact. Normal speech, volume and content. Symmetrical smile. MUSCULOSKELETAL: Normal extremities with adequate strength and full range of motion. No lower extremity swelling or edema. No calf tenderness. LYMPHATICS: No significant lymphadenopathy is noted PSYCHIATRIC: Normal psychiatric evaluation. Course Vital Signs 07/16/23 07/16/23 12:25 15:29 Temperature 97.5 F L Pulse Rate 58 L 55 L Respiratory 16 16 Rate Blood Pressure 108/73 109/75 O2 Sat by Pulse 98 96 Oximetry Medical Decision Making - Medical Decision Making EKG is interpreted by myself. EKG shows a paced rhythm at 70 bpm with multiple PVCs QRS is 142 QT interval is 432 QTc is 453. Was pt. sent in by a medical professional or institution (, PA, THIN FILM TECHNICIAN, urgent care, hospital, or [facility]...) When possible be specific @ -No Did you speak to anyone other than the patient for history (EMS, parent, family, police, friend...)? What history was obtained from this source @ -No Did you review nursing and triage notes (agree or disagree)? Why? @ -I reviewed and agree with nursing and triage notes Were old charts reviewed (outside hosp., previous admission, EMS record, old EKG, old radiological studies, urgent care reports/EKG's, [facility] records)? Report findings @ -I reviewed prior hospital admissions and reviewed lab work and compared to today there was no acute changes. I did compare today's EKG with prior admission EKGs and saw no significant changes. Differential Diagnosis (chest pain, altered mental status, abdominal pain women, abdominal pain men, vaginal bleeding, weakness, fever, dyspnea, syncope, headache, dizziness, GI bleed, back pain, seizure, CVA, palpatations, mental health, musculoskeletal)? @ -Differential Chest Pain: Stable Angina, Unstable Angina, STEMI, NSTEMI Aortic Dissection, Pneumothorax, Musculoskeletal, Esophageal Spasm GERD, Cholecystitis, Pancreatitis, Zoster, this is not meant to be an all-inclusive list. EKG interpreted by me (3pts min.). @ -As above X-rays interpreted by me (1pt min.). @ -Chest x-ray shows no acute normality CT interpreted by me (1pt min.). @ -None done U/S interpreted by me (1pt. min.). @ -None done What testing was considered but not performed or refused? (CT, X-rays, U/S, labs)? Why? @ -None What meds were considered but not given or refused? Why? @ -None Did you discuss the management of the patient with other professionals (professionals i.e. , PA, THIN FILM TECHNICIAN, lab, RT, psych nurse, social studies teacher, stationary engineer supervisor, teacher, chief credit officer, dependency case manager)? Give summary @ -No Was smoking cessation discussed for >3mins.? @ -No Was critical care preformed (if so, how long)? @ -No Were there social determinants of health that impacted care today? How? (Homelessness, low income, unemployed, alcoholism, drug addiction, transpor tation, low edu. Level, literacy, decrease access to med. care, chcf, rehab)? @ -No Was there de-escalation of care discussed even if they declined (Discuss DNR or withdrawal of care, Hospice)? DNR status @ -No What co-morbidities impacted this encounter? (DM, HTN, Smoking, COPD, CAD, Cancer, CVA, ARF, Chemo, Hep., AIDS, mental health diagnosis, sleep apnea, morbid obesity)? @ -None Was patient admitted / discharged? Hospital course, mention meds given and route, prescriptions, significant lab abnormalities, going to OR and other pertinent info. @ -Patient was given Toradol and it took his pain away completely he can move his neck freely without pain. Patient's pain also is reproducible when he arrived on palpating the pacemaker. This seems like musculoskeletal pain patient and are in agreement patient will be discharged home. Undiagnosed new problem with uncertain prognosis? @ -No Drug Therapy requiring intensive monitoring for toxicity (Heparin, Nitro, Insulin, Cardizem)? @ -No Were any procedures done? @ -No Diagnosis/symptom? @ -Musculoskeletal chest Acute, or Chronic, or Acute on Chronic? @ -Acute Uncomplicated (without systemic symptoms) or Complicated (systemic symptoms)? @ -Complicated Side effects of treatment? @ -No Exacerbation, Progression, or Severe Exacerbation? @ -No Poses a threat to life or bodily function? How? (Chest pain, USA, MD, pneumonia, PE, COPD, DKA, ARF, appy, cholecystitis, CVA, Diverticulitis, Homicidal, Suicidal, threat to staff... and all critical care pts) @ -No - Lab Data Result diagrams: 07/16/23 11:26 07/16/23 11:26 Lab Results 07/16/23 07/16/23 07/16/23 Range/Units 11:26 11:26 11:26 WBC 7.4 (3.8-10.6) k/uL RBC 4.61 (4.30-5.90) m/uL Hgb 14.5 (13.0-17.5) gm/dL Hct 45.7 (39.0-53.0) % MCV 99.2 (80.0-100.0) fL MCH 31.5 (25.0-35.0) pg MCHC 31.8 (31.0-37.0) g/dL RDW 13.2 (11.5-15.5) % Plt Count 201 (150-450) k/uL MPV 7.8 Neutrophils % 70 % Lymphocytes % 19 % Monocytes % 7 % Eosinophils % 1 % Basophils % 1 % Neutrophils # 5.2 (1.3-7.7) k/uL Lymphocytes # 1.4 (1.0-4.8) k/uL Monocytes # 0.5 (0-1.0) k/uL Eosinophils # 0.1 (0-0.7) k/uL Basophils # 0.1 (0-0.2) k/uL PT (10.0-12.5) sec INR (<1.2) APTT (22.0-30.0) sec Sodium 140 (137-145) mmol/L Potassium 3.9 (3.5-5.1) mmol/L Chloride 108 H (98-107) mmol/L Carbon Dioxide 27 (22-30) mmol/L Anion Gap 5 mmol/L BUN 28 H (9-20) mg/dL Creatinine 1.24 (0.66-1.25) mg/dL Est GFR (CKD-EPI)AfAm 64 (>60 ml/min/1.73 sqM) Est GFR (CKD-EPI)NonAf 55 (>60 ml/min/1.73 sqM) Glucose 116 H (74-99) mg/dL Calcium 8.9 (8.4-10.2) mg/dL Total Bilirubin 0.9 (0.2-1.3) mg/dL AST 50 (17-59) U/L ALT 20 (4-49) U/L Alkaline Phosphatase 91 (38-126) U/L Troponin I 0.027 (0.000-0.034) ng/mL NT-Pro-B Natriuret Pep 559 pg/mL Total Protein 7.1 (6.3-8.2) g/dL Albumin 4.0 (3.5-5.0) g/dL 07/16/23 Range/Units 11:26 WBC (3.8-10.6) k/uL RBC (4.30-5.90) m/uL Hgb (13.0-17.5) gm/dL Hct (39.0-53.0) % MCV (80.0-100.0) fL MCH (25.0-35.0) pg MCHC (31.0-37.0) g/dL RDW (11.5-15.5) % Plt Count (150-450) k/uL MPV Neutrophils % % Lymphocytes % % Monocytes % % Eosinophils % % Basophils % % Neutrophils # (1.3-7.7) k/uL Lymphocytes # (1.0-4.8) k/uL Monocytes # (0-1.0) k/uL Eosinophils # (0-0.7) k/uL Basophils # (0-0.2) k/uL PT 11.5 (10.0-12.5) sec INR 1.1 (<1.2) APTT 28.1 (22.0-30.0) sec Sodium (137-145) mmol/L Potassium (3.5-5.1) mmol/L Chloride (98-107) mmol/L Carbon Dioxide (22-30) mmol/L Anion Gap mmol/L BUN (9-20) mg/dL Creatinine (0.66-1.25) mg/dL Est GFR (CKD-EPI)AfAm (>60 ml/min/1.73 sqM) Est GFR (CKD-EPI)NonAf (>60 ml/min/1.73 sqM) Glucose (74-99) mg/dL Calcium (8.4-10.2) mg/dL Total Bilirubin (0.2-1.3) mg/dL AST (17-59) U/L ALT (4-49) U/L Alkaline Phosphatase (38-126) U/L Troponin I (0.000-0.034) ng/mL NT-Pro-B Natriuret Pep pg/mL Total Protein (6.3-8.2) g/dL Albumin (3.5-5.0) g/dL Disposition Clinical Impression: Musculoskeletal chest pain Disposition: HOME SELF-CARE Condition: Good Instructions (If sedation given, give patient instructions): Chest Pain (ED) Is patient prescribed a controlled substance at d/c from ED?: No Referrals: Matias Hernandez MD [Primary Care Provider] - 1-2 days Time of Disposition: 15:07
[2023-07-16 12:40] LABS: Basophils # (A) 0.1 k/uL (0-0.2); Basophils % (A) 1 %; Eosinophils # (A) 0.1 k/uL (0-0.7); Eosinophils % (A) 1 %; HCT 45.7 % (39.0-53.0); HGB 14.5 gm/dL (13.0-17.5); Lymphocytes # (A) 1.4 k/uL (1.0-4.8); Lymphocytes % (A) 19 %; MCH 31.5 pg (25.0-35.0); MCHC 31.8 g/dL (31.0-37.0); MCV 99.2 fL (80.0-100.0); Mean Platelet Volume 7.8; Monocytes # (A) 0.5 k/uL (0-1.0); Monocytes % (A) 7 %; Neutrophils # (A) 5.2 k/uL (1.3-7.7); Neutrophils % (A) 70 %; Platelet Count 201 k/uL (150-450); RBC 4.61 m/uL (4.30-5.90); RDW 13.2 % (11.5-15.5); WBC 7.4 k/uL (3.8-10.6)
[2023-07-16 12:44] LABS: INR 1.1 (<1.2); Partial Thromboplastin Time 28.1 sec (22.0-30.0); Prothrombin Time 11.5 sec (10.0-12.5)
[2023-07-16 13:04] VITALS: RESP 16; TEMP 97.5
--- NOTE | 2023-07-16 13:08 | XR ---
EXAMINATION TYPE: XR chest 2V DATE OF EXAM: 07/16/2023 COMPARISON: 05/12/2023 HISTORY: Shortness of breath TECHNIQUE: Frontal and lateral views of the chest are obtained. FINDINGS: Scattered senescent parenchymal changes noted. No evidence for infiltrate. No evidence for atelectasis. Heart size is stable. Mediastinal structures are stable and grossly unremarkable. No evidence for hilar prominence. Degenerative changes dorsal spine. IMPRESSION: 1. No evidence for acute pulmonary disease.
[2023-07-16 13:13] LABS: ALT 20 U/L (4-49); AST 50 U/L (17-59); African American GFR (CKD) 64 (>60 ml/min/1.73 sqM); Alkaline Phosphatase 91 U/L (38-126); Anion Gap 5 mmol/L; Blood Urea Nitrogen 28 mg/dL (9-20); Calcium 8.9 mg/dL (8.4-10.2); Carbon Dioxide 27 mmol/L (22-30); Chloride 108 mmol/L (98-107); Glucose 116 mg/dL (74-99); Non-African American GFR(CKD) 55 (>60 ml/min/1.73 sqM); Potassium 3.9 mmol/L (3.5-5.1); Sodium 140 mmol/L (137-145); Total Bilirubin 0.9 mg/dL (0.2-1.3); Total Protein 7.1 g/dL (6.3-8.2)
[2023-07-16 13:21] LABS: NT-Pro-B-Type Natriuretic Pept 559 pg/mL
[2023-07-16] MEDS: ASPIRIN 81 MG PO STA (13:22)
[2023-07-16] MEDS: KETOROLAC 15 MG/ML 1 ML VIAL IVP STA (13:23)
[2023-07-16] MEDS: NITROGLYCERIN OINT 1 INCH/GM PACKET TOPICAL STA (13:23)
[2023-07-16 15:49] VITALS: BP 109/75; PULSE 55
== END 2023-07-16 15:30 | disposition home or self-care (01) ==
LOC: EC 11:17
DX: R07.89 Other chest pain (principal); Z87.891 Personal history of nicotine dependence; Z88.1 Allergy status to other antibiotic agents; Z88.8 Allergy status to other drugs, medicaments and biological substances
CPT/HCPCS: 36415; 93005; 83880; 80053; 84484; 85025; 85610; 85730; 71046; 99285; 96374; J1885

== ENCOUNTER 2024-07-17 09:01 | Inpatient (IN) | payer MEDICARE, OTHER ==
[2024-07-17 09:06] LABS: Glucose,Whole Blood 98 mg/dL (70-110)
[2024-07-17 09:25] LABS: Basophils # (A) 0.03 10*3/uL (0.00-0.10); Basophils % (A) 0.2 %; Eosinophils # (A) 0.01 10*3/uL (0.04-0.35); Eosinophils % (A) 0.1 %; HCT 45.7 % (39.6-50.0); HGB 15.7 g/dL (13.0-17.0); Lymphocytes # (A) 1.98 10*3/uL (0.90-5.00); Lymphocytes % (A) 13.2 %; MCH 32.8 pg (27.0-32.0); MCHC 34.4 g/dL (32.0-37.0); MCV 95.6 fL (80.0-97.0); Mean Platelet Volume 10.5 fL (9.5-12.2); Monocytes # (A) 1.48 10*3/uL (0.20-1.00); Monocytes % (A) 9.8 %; Neutrophils # (A) 11.48 10*3/uL (1.80-7.70); Neutrophils % (A) 76.3 %; Platelet Count 190 10*3/uL (140-440); RBC 4.78 10*6/uL (4.40-5.60); RDW 14.4 % (11.5-14.5); WBC 15.04 10*3/uL (4.50-10.00)
[2024-07-17] MEDS: SODIUM CHLORIDE 0.9% 500 ML 500 ML IV ONE (09:28)
[2024-07-17 09:37] LABS: ALT 17 U/L (4-49); AST 20 U/L (17-59); African American GFR (CKD) 51 (>60 ml/min/1.73 sqM); Albumin 3.7 g/dL (3.5-5.0); Alcohol <10 mg/dL; Alkaline Phosphatase 79 U/L (38-126); Anion Gap 10 mmol/L; Blood Urea Nitrogen 29 mg/dL (9-20); Calcium 9.3 mg/dL (8.4-10.2); Carbon Dioxide 24 mmol/L (22-30); Chloride 111 mmol/L (98-107); Glucose 114 mg/dL (74-99); INR 1.1 (<1.2); Non-African American GFR(CKD) 44 (>60 ml/min/1.73 sqM); Partial Thromboplastin Time 25.2 sec (22.0-30.0); Potassium 4.2 mmol/L (3.5-5.1); Sodium 145 mmol/L (137-145); Total Bilirubin 1.2 mg/dL (0.2-1.3); Total Protein 6.3 g/dL (6.3-8.2)
[2024-07-17 09:37] LABS: Amphetamine Screen,Urine Not Detected (NotDetected); Barbiturate Screen,Urine Not Detected (NotDetected); Benzodiazepines Screen,Urine Not Detected (NotDetected); Cocaine Screen,Urine Not Detected (NotDetected); Methadone Screen, Urine Not Detected (NotDetected); Opiate Screen,Urine Detected (NotDetected); Oxycodone Screen, Urine Not Detected (NotDetected); Phencyclidine Screen,Urine Not Detected (NotDetected); Tricyclic Antidepressant,Urine Not Detected (NotDetected); Urn Cannabinoid Scrn Not Detected (NotDetected)
--- NOTE | 2024-07-17 09:39 | ED ---
General Adult HPI - General Chief complaint: Altered Mental Status Stated complaint: Unresponsive Time Seen by Provider: 07/17/24 09:05 Source: patient, EMS, RN notes reviewed, old records reviewed Mode of arrival: EMS Limitations: altered mental status - History of Present Illness Initial comments: This is an 83-year-old male who was last seen last night at 7 PM and acting normal. According to EMS the woke up this morning the patient was unresp onsive and she called EMS at that time. The patient has not had any recent fevers chills. The patient did get a new medication recently and it was [place]. The there is been no trauma that they know of. And according to the she knows of no reason why he would be unresponsive. - Related Data Home Medications Medication Instructions Recorded Confirmed Finasteride [Proscar] 5 mg PO DAILY 10/03/14 07/17/24 Docusate [Colace] 100 mg PO BID 10/14/15 07/17/24 Apixaban [Eliquis] 5 mg PO BID 09/10/18 07/17/24 Fish Oil/Dha/Epa [Fish Oil 1,200 1 cap PO DAILY 09/10/18 07/17/24 mg Fish Oil] Levothyroxine Sodium [Synthroid] 50 mcg PO DAILY 09/10/18 07/17/24 Metoprolol Tartrate [Lopressor] 25 mg PO BID 09/10/18 07/17/24 Simvastatin [Zocor] 40 mg PO HS 09/10/18 07/17/24 Tamsulosin [Flomax] 0.8 mg PO DAILY 09/10/18 07/17/24 Aspirin EC [Ecotrin Low Dose] 81 mg PO DAILY 08/10/21 07/17/24 Meclizine [Antivert] 25 mg PO BID 08/10/21 07/17/24 Cider Vinegar [Apple Cider Vinegar] 300 mg PO DAILY 08/08/22 07/17/24 Albuterol Inhaler [Ventolin Hfa 2 puff INHALATION RT-Q6H PRN 07/17/24 07/17/24 Inhaler] Baclofen [Lioresal] 10 mg PO TID PRN 07/17/24 07/17/24 HYDROcodone/APAP 10-325MG [[place] 1 tab PO QID 07/17/24 07/17/24 10-325] Lidocaine 5% Patch [Lidoderm] 1 patch TOPICAL DAILY 07/17/24 07/17/24 Multivit-Min/FA/Lycopen/Lutein 1 tab PO DAILY 07/17/24 07/17/24 [Centrum Silver Tablet] Mupirocin 2% Oint [Bactroban 2% 1 applic TOPICAL BID 07/17/24 07/17/24 Oint] Triamterene/Hydrochlorothiazid 1 tab PO DAILY 07/17/24 07/17/24 [Triamterene-Hctz 37.5-25 mg Tb] allopurinoL [Zyloprim] 100 mg PO DAILY 07/17/24 07/17/24 predniSONE See Taper PO DIRECTED 07/17/24 07/17/24 Allergies Allergy/AdvReac Type Severity Reaction Status Date / Time atorvastatin Allergy PER Verified 07/17/24 10:10 [facility] cephalexin [From Keflex] Allergy PER Verified 07/17/24 10:10 [facility] duloxetine Allergy PER Verified 07/17/24 10:10 [facility] escitalopram [From Lexapro] Allergy PER Verified 07/17/24 10:10 [facility] gabapentin Allergy PER Verified 07/17/24 10:10 [facility] levofloxacin [From Levaquin] Allergy PER Verified 07/17/24 10:10 [facility] niacin Allergy PER Verified 07/17/24 10:10 [facility] terazosin Allergy PER Verified 07/17/24 10:10 [facility] Review of Systems ROS Statement: Those systems with pertinent positive or pertinent negative responses have been documented in the HPI. ROS Other: All systems not noted in ROS Statement are negative. Past Medical History Past Medical History: Atrial Fibrillation, COPD, CVA/TIA, Deep Vein Thrombosis (DVT), Hyperlipidemia, Hypertension, Prostate Disorder, Sleep Apnea/CPAP/BIPAP, Thyroid Disorder Additional Past Medical History / Comment(s): Meniere's disease, BPH, DJD, arthiritis, chronic bradycardia, and chronic back pain, diverticulitis. uses cpap History of Any Multi-Drug Resistant Organisms: None Reported Date of last positivie culture/infection: 2001? MDRO Source:: KNEE Past Surgical History: Back Surgery, Bowel Resection, Hernia Repair, Orthopedic Surgery, Pacemaker Additional Past Surgical History / Comment(s): 04/11/15 EP STUDY . Low back surgery with rods and screws. Left knee fluid drained off and patellar scraped. RIGHT inguinal & abdominal hernia repair. Past Anesthesia/Blood Transfusion Reactions: No Reported Reaction Additional Past Anesthesia/Blood Transfusion Reaction / Comment(s): Pt has never recieved blood. Type of Cardiac Device: Permanent Pacemaker Device Placement Date:: unk Past Psychological History: No Psychological Hx Reported Smoking Status: Former smoker Past Alcohol Use History: Unable to Obtain Past Drug Use History: Unable to Obtain - Past Family History Mother History Unknown: Yes Family Medical History: No Reported History Additional Family Medical History / Comment(s): passed at 79, unknown cause Father History Unknown: Yes Family Medical History: No Reported History Additional Family Medical History / Comment(s): passed at 81yrs. General Exam - General Exam Comments Initial Comments: GENERAL: Patient is well-developed and well-nourished. Patient is nontoxic and well-hydrated and is in no acute distress. ENT: Neck is soft and supple. No significant lymphadenopathy is noted. Oropharynx is clear. Moist mucous membranes. Neck has full range of motion without eliciting any pain. EYES: The sclera were anicteric and conjunctiva were pink and moist. Eyelids were unremarkable. PULMONARY: Unlabored respirations. Good breath sounds bilaterally. No audible rales rho nchi or wheezing was noted. CARDIOVASCULAR: There is a regular rate and rhythm without any murmurs gallops or rubs. ABDOMEN: Soft and nontender with normal bowel sounds. SKIN: Skin is clear with no lesions or rashes and otherwise unremarkable. NEUROLOGIC: Patient is patient is unresponsive. MUSCULOSKELETAL: Unable to test at this time LYMPHATICS: No significant lymphadenopathy is noted PSYCHIATRIC: Normal psychiatric evaluation. Limitations: altered mental status Course Vital Signs 07/17/24 07/17/24 07/17/24 09:03 09:13 09:16 Temperature 97.6 F Pulse Rate 83 Respiratory 20 Rate Blood Pressure 121/79 O2 Sat by Pulse 99 Oximetry Fraction of 50 Inspired Oxygen (FIO2) 07/17/24 07/17/24 07/17/24 10:22 10:57 12:00 Temperature Pulse Rate 69 73 71 Respiratory 20 20 20 Rate Blood Pressure 111/64 107/50 130/99 O2 Sat by Pulse 97 100 99 Oximetry Fraction of Inspired Oxygen (FIO2) 07/17/24 07/17/24 12:38 12:45 Temperature Pulse Rate 58 L Respiratory 16 16 Rate Blood Pressure 126/66 O2 Sat by Pulse 98 Oximetry Fraction of Inspired Oxygen (FIO2) Medical Decision Making - Medical Decision Making EKG is interpreted by myself and EKG shows atrial fibrillation at 83 bpm QRS is 130 QT interval is 389 QTc of 429. Patient's EKG shows no ST segment elevation however patient has occasional PVCs Was pt. sent in by a medical professional or institution (LAMBERT Bryant, CERTIFIED DENTAL ASSISTANT, urgent care, hospital, or longterm...) When possible be specific @ -No Did you speak to anyone other than the patient for history (EMS, parent, family, police, friend...)? What history was obtained from this source @ -No Did you review nursing and triage notes (agree or disagree)? Why? @ -I reviewed and agree with nursing and triage notes Were old charts reviewed (outside hosp., previous admission, EMS record, old EKG, old radiological studies, urgent care reports/EKG's, longterm records)? Report findings @ -No old charts were reviewed Differential Diagnosis? @ -Differential Altered Mental Status: Hypoglycemia, DKA, hypercapnia, ETOH, overdose, CO poisoning, trauma, myxedema coma, HTN encephalopathy, infection, encephalitis, psychosis, intercranial hemorrhage, hepatic encephalopathy, meningitis, CVA, this is not meant to be an all-inclusive list EKG interpreted by me (3pts min.). @ -As above X-rays interpreted by me (1pt min.). @ -Chest x-ray shows no acute abnormality CT interpreted by me (1pt min.). @ -CT of the brain shows no acute abnormality. CT angiogram of the head and neck showed no acute abnormality U/S interpreted by me (1pt. min.). @ -None done What testing was considered but not performed or refused? (CT, X-rays, U/S, la bs)? Why? @ -None What meds were considered but not given or refused? Why? @ -None Did you discuss the management of the patient with other professionals (professionals i.e. LAMBERT Bryant, CERTIFIED DENTAL ASSISTANT, lab, RT, psych nurse, social media job titles, diplomatic officer, teacher, press officer, binder caser)? Give summary @ -I spoke with Dr. Komar he agreed to admit the patient Was smoking cessation discussed for >3mins.? @ -No Was critical care preformed (if so, how long)? @ -No Were there social determinants of health that impacted care today? How? (Homelessness, low income, unemployed, alcoholism, drug addiction, transportation, low edu. Level, literacy, decrease access to med. care, prison, rehab)? @ -No Was there de-escalation of care discussed even if they declined (Discuss DNR or withdrawal of care, Hospice)? DNR status @ -No What co-morbidities impacted this encounter? (DM, HTN, Smoking, COPD, CAD, Cancer, CVA, ARF, Chemo, Hep., AIDS, mental health diagnosis, sleep apnea, morbid obesity)? @ -None Was patient admitted / discharged? Hospital course, mention meds given and route, prescriptions, significant lab abnormalities, going to OR and other pertinent info. @ -Patient did receive Narcan and it did not seem to change his altered mental status. Patient's CAT scans and lab work all were reasonably within normal limits. Patient remained altered throughout his stay in the emergency department. Occasionally he would verbalize some words but not to any questions I was asking. Undiagnosed new problem with uncertain prognosis? @ -No Drug Therapy requiring intensive monitoring for toxicity (Heparin, Nitro, Insu reza, Cardizem)? @ -No Were any procedures done? @ -No Diagnosis/symptom? @ -Altered mental status Acute, or Chronic, or Acute on Chronic? @ -Acute Uncomplicated (without systemic symptoms) or Complicated (systemic symptoms)? @ -Complicated Side effects of treatment? @ -No Exacerbation, Progression, or Severe Exacerbation? @ -No Poses a threat to life or bodily function? How? (Chest pain, [place], [place], pneumonia, PE, COPD, DKA, ARF, appy, cholecystitis, CVA, Diverticulitis, Homicidal, Suicidal, threat to staff... and all critical care pts) @ -Yes cause of his altered mental status is unknown at this time could lead to significant morbidity or mortality - Lab Data Result diagrams: 07/17/24 09:12 07/17/24 09:12 Lab Results 07/17/24 07/17/24 07/17/24 Range/Units 09:05 09:12 09:12 WBC 15.04 H (4.50-10.00) 10*3/uL RBC 4.78 (4.40-5.60) 10*6/uL Hgb 15.7 (13.0-17.0) g/dL Hct 45.7 (39.6-50.0) % MCV 95.6 (80.0-97.0) fL MCH 32.8 H (27.0-32.0) pg MCHC 34.4 (32.0-37.0) g/dL Plt Count 190 (140-440) 10*3/uL MPV 10.5 (9.5-12.2) fL Immature Gran % (Auto) 0.4 % Neutrophils % 76.3 % Lymphocytes % 13.2 % Monocytes % 9.8 % Eosinophils % 0.1 % Basophils % 0.2 % Immature Gran # 0.06 H (0.00-0.04) 10*3/uL Neutrophils # 11.48 H (1.80-7.70) 10*3/uL Lymphocytes # 1.98 (0.90-5.00) 10*3/uL Monocytes # 1.48 H (0.20-1.00) 10*3/uL Eosinophils # 0.01 L (0.04-0.35) 10*3/uL Basophils # 0.03 (0.00-0.10) 10*3/uL PT 12.0 (10.0-12.5) sec INR 1.1 (<1.2) APTT 25.2 (22.0-30.0) sec VBG pH (7.31-7.41) VBG pCO2 (37-51) mmHg VBG HCO3 (24-28) mmol/L Sodium (137-145) mmol/L Potassium (3.5-5.1) mmol/L Chloride (98-107) mmol/L Carbon Dioxide (22-30) mmol/L Anion Gap mmol/L BUN (9-20) mg/dL Creatinine (0.66-1.25) mg/dL Est GFR (CKD-EPI)AfAm (>60 ml/min/1.73 sqM) Est GFR (CKD-EPI)NonAf (>60 ml/min/1.73 sqM) Glucose (74-99) mg/dL POC Glucose (mg/dL) 98 (70-110) mg/dL POC Glu Senior Brand Manager ID Marlena Ritter Calcium (8.4-10.2) mg/dL Total Bilirubin (0.2-1.3) mg/dL AST (17-59) U/L ALT (4-49) U/L Alkaline Phosphatase (38-126) U/L Ammonia (<30) umol/L Troponin I (0.000-0.034) ng/mL Total Protein (6.3-8.2) g/dL Albumin (3.5-5.0) g/dL Urine Color Urine Appearance (Clear) Urine pH (5.0-8.0) Ur Specific [place] (1.001-1.035) Urine Protein (Negative) Urine Glucose (UA) (Negative) Urine Ketones (Negative) Urine Blood (Negative) Urine Nitrite (Negative) Urine Bilirubin (Negative) Urine Urobilinogen (<2.0) mg/dL Ur Leukocyte Esterase (Negative) Urine Opiates Screen (NotDetected) Ur Oxycodone Screen (NotDetected) Urine Methadone Screen (NotDetected) Ur Barbiturates Screen (NotDetected) U Tricyclic Antidepress (NotDetected) Ur Phencyclidine Scrn (NotDetected) Ur Amphetamines Screen (NotDetected) U Methamphetamines Scrn (NotDetected) U Benzodiazepines Scrn (NotDetected) Urine Cocaine Screen (NotDetected) U Marijuana (THC) Screen (NotDetected) Serum Alcohol mg/dL 07/17/24 07/17/24 07/17/24 Range/Units 09:12 09:12 09:12 WBC (4.50-10.00) 10*3/uL RBC (4.40-5.60) 10*6/uL Hgb (13.0-17.0) g/dL Hct (39.6-50.0) % MCV (80.0-97.0) fL MCH (27.0-32.0) pg MCHC (32.0-37.0) g/dL Plt Count (140-440) 10*3/uL MPV (9.5-12.2) fL Immature Gran % (Auto) % Neutrophils % % Lymphocytes % % Monocytes % % Eosinophils % % Basophils % % Immature Gran # (0.00-0.04) 10*3/uL Neutrophils # (1.80-7.70) 10*3/uL Lymphocytes # (0.90-5.00) 10*3/uL Monocytes # (0.20-1.00) 10*3/uL Eosinophils # (0.04-0.35) 10*3/uL Basophils # (0.00-0.10) 10*3/uL PT (10.0-12.5) sec INR (<1.2) APTT (22.0-30.0) sec VBG pH (7.31-7.41) VBG pCO2 (37-51) mmHg VBG HCO3 (24-28) mmol/L Sodium 145 (137-145) mmol/L Potassium 4.2 (3.5-5.1) mmol/L Chloride 111 H (98-107) mmol/L Carbon Dioxide 24 (22-30) mmol/L Anion Gap 10 mmol/L BUN 29 H (9-20) mg/dL Creatinine 1.47 H (0.66-1.25) mg/dL Est GFR (CKD-EPI)AfAm 51 (>60 ml/min/1.73 sqM) Est GFR (CKD-EPI)NonAf 44 (>60 ml/min/1.73 sqM) Glucose 114 H (74-99) mg/dL POC Glucose (mg/dL) (70-110) mg/dL POC Glu Senior Brand Manager ID Calcium 9.3 (8.4-10.2) mg/dL Total Bilirubin 1.2 (0.2-1.3) mg/dL AST 20 (17-59) U/L ALT 17 (4-49) U/L Alkaline Phosphatase 79 (38-126) U/L Ammonia 10 (<30) umol/L Troponin I 0.044 H* (0.000-0.034) ng/mL Total Protein 6.3 (6.3-8.2) g/dL Albumin 3.7 (3.5-5.0) g/dL Urine Color Urine Appearance (Clear) Urine pH (5.0-8.0) Ur Specific [place] (1.001-1.035) Urine Protein (Negative) Urine Glucose (UA) (Negative) Urine Ketones (Negative) Urine Blood (Negative) Urine Nitrite (Negative) Urine Bilirubin (Negative) Urine Urobilinogen (<2.0) mg/dL Ur Leukocyte Esterase (Negative) Urine Opiates Screen (NotDetected) Ur Oxycodone Screen (NotDetected) Urine Methadone Screen (NotDetected) Ur Barbiturates Screen (NotDetected) U Tricyclic Antidepress (NotDetected) Ur Phencyclidine Scrn (NotDetected) Ur Amphetamines Screen (NotDetected) U Methamphetamines Scrn (NotDetected) U Benzodiazepines Scrn (NotDetected) Urine Cocaine Screen (NotDetected) U Marijuana (THC) Screen (NotDetected) Serum Alcohol <10 mg/dL 07/17/24 07/17/24 07/17/24 Range/Units 09:15 10:20 11:04 WBC (4.50-10.00) 10*3/uL RBC (4.40-5.60) 10*6/uL Hgb (13.0-17.0) g/dL Hct (39.6-50.0) % MCV (80.0-97.0) fL MCH (27.0-32.0) pg MCHC (32.0-37.0) g/dL Plt Count (140-440) 10*3/uL MPV (9.5-12.2) fL Immature Gran % (Auto) % Neutrophils % % Lymphocytes % % Monocytes % % Eosinophils % % Basophils % % Immature Gran # (0.00-0.04) 10*3/uL Neutrophils # (1.80-7.70) 10*3/uL Lymphocytes # (0.90-5.00) 10*3/uL Monocytes # (0.20-1.00) 10*3/uL Eosinophils # (0.04-0.35) 10*3/uL Basophils # (0.00-0.10) 10*3/uL PT (10.0-12.5) sec INR (<1.2) APTT (22.0-30.0) sec VBG pH 7.30 L (7.31-7.41) VBG pCO2 49 (37-51) mmHg VBG HCO3 24 (24-28) mmol/L Sodium (137-145) mmol/L Potassium (3.5-5.1) mmol/L Chloride (98-107) mmol/L Carbon Dioxide (22-30) mmol/L Anion Gap mmol/L BUN (9-20) mg/dL Creatinine (0.66-1.25) mg/dL Est GFR (CKD-EPI)AfAm (>60 ml/min/1.73 sqM) Est GFR (CKD-EPI)NonAf (>60 ml/min/1.73 sqM) Glucose (74-99) mg/dL POC Glucose (mg/dL) (70-110) mg/dL POC Glu Senior Brand Manager ID Calcium (8.4-10.2) mg/dL Total Bilirubin (0.2-1.3) mg/dL AST (17-59) U/L ALT (4-49) U/L Alkaline Phosphatase (38-126) U/L Ammonia (<30) umol/L Troponin I (0.000-0.034) ng/mL Total Protein (6.3-8.2) g/dL Albumin (3.5-5.0) g/dL Urine Color Yellow Urine Appearance Clear (Clear) Urine pH 6.0 (5.0-8.0) Ur Specific [place] 1.024 (1.001-1.035) Urine Protein Negative (Negative) Urine Glucose (UA) Negative (Negative) Urine Ketones Negative (Negative) Urine Blood Negative (Negative) Urine Nitrite Negative (Negative) Urine Bilirubin Negative (Negative) Urine Urobilinogen 2.0 (<2.0) mg/dL Ur Leukocyte Esterase Negative (Negative) Urine Opiates Screen Detected H (NotDetected) Ur Oxycodone Screen Not Detected (NotDetected) Urine Methadone Screen Not Detected (NotDetected) Ur Barbiturates Screen Not Detected (NotDetected) U Tricyclic Antidepress Not Detected (NotDetected) Ur Phencyclidine Scrn Not Detected (NotDetected) Ur Amphetamines Screen Not Detected (NotDetected) U Methamphetamines Scrn Not Detected (NotDetected) U Benzodiazepines Scrn Not Detected (NotDetected) Urine Cocaine Screen Not Detected (NotDetected) U Marijuana (THC) Screen Not Detected (NotDetected) Serum Alcohol mg/dL Disposition Clinical Impression: Altered mental status Disposition: ADMITTED IP TO THIS [facility] Referrals: Matias Hernandez MD [Primary Care Provider] - 1-2 days Time of Disposition: 12:52
--- NOTE | 2024-07-17 09:53 | CT ---
EXAMINATION TYPE: CT brain wo con DATE OF EXAM: 07/17/2024 9:48 AM COMPARISON: 05/12/2023. CLINICAL INDICATION: Male, 83 years old with history of Altered mental status, Altered mental status TECHNIQUE: Brain: Axial CT images of the brain were obtained with coronal and sagittal reformats created and rev iewed. Contrast used: None. Oral contrast used: None. CT DLP: 1127.4 mGycm, Automated exposure control for dose reduction was used. FINDINGS: Brain: Extra-axial spaces: No abnormal extra-axial fluid collections. Ventricular system: Dilatation in proportion to cerebral atrophy. Cerebral parenchyma: No acute intraparenchymal hemorrhage or mass effect. The sheikh-white junction is well differentiated. Scattered hypoattenuating areas are seen within the white matter. Cerebellum: Unremarkable. Mass effect: No evidence of midline shift. Intracranial vasculature: Atherosclerotic calcifications of the intracranial vessels. Soft tissues: Normal. Calvarium/osseous structures: No depressed skull fracture. Paranasal sinuses and mastoid air cells: Mild scattered paranasal sinus disease. Postsurgical changes to the right mastoid air cells. Visualized orbits: Orbital contents are intact. IMPRESSION: Motion limited exam. 1. No acute intracranial process. 2. Nonspecific white matter changes, likely secondary to chronic small vessel ischemic disease. [facility], , 07/17/2024 9:50 AM
--- NOTE | 2024-07-17 09:53 | XR ---
EXAMINATION TYPE: XR chest 2V DATE OF EXAM: 07/17/2024 9:50 AM COMPARISON: Chest radiographs from 07/16/2023 CLINICAL INDICATION: Male, 83 years old with history of altered mental status; [facility] TECHNIQUE: XR chest 2V Frontal and lateral views of the chest. FINDINGS: Lungs/Pleura: There is no evidence of pleural effusion, focal consolidation, or pneumothorax. Pulmonary vascularity: Unremarkable. Heart/mediastinum: Cardiomediastinal silhouette is unremarkable. Two lead cardiac conduction device o verlying the left hemithorax with lead tips projecting over the right ventricle and right atrium. Musculoskeletal: Degenerative changes of the shoulder joints. IMPRESSION: Stable exam, No acute cardiopulmonary disease/process. [facility], , 07/17/2024 9:51 AM
[2024-07-17 10:42] LABS: VBG PH 7.3 (7.31-7.41)
[2024-07-17 11:13] LABS: Appearance,Urine Clear (Clear); Bilirubin,Urine Negative (Negative); Blood,Urine Negative (Negative); Color,Urine Yellow; Glucose,Urine (UA) Negative (Negative); Ketones,Urine Negative (Negative); Leukocyte Esterase,Urine Negative (Negative); Nitrite,Urine Negative (Negative); Protein,Urine Negative (Negative); Specific Gravity,Urine 1.024 (1.001-1.035)
[2024-07-17] MEDS: NALOXONE 0.4 MG/ML 1 ML VIAL IVP STA (12:38)
--- NOTE | 2024-07-17 12:45 | CT ---
EXAMINATION TYPE: CT angio head neck DATE OF EXAM: 07/17/2024 12:15 PM COMPARISON: Brain same day. And prior CTA 05/12/2023 CLINICAL INDICATION: Male, 83 years old with history of Altered mental status; PHH, unresponsive, alt ered mental status, confusion TECHNIQUE: Axially acquired helical CT angiogram of the head and neck was obtained with contrast. Axi al images are supplemented with 3D reconstructions and MIP images which were post-processed at an in dependent workstation. NASCET criteria used. Contrast used:65 mL of Isovue 370 with IV Contrast, Oral contrast used: None. CT DLP: 594 mGycm, Automated exposure control for dose reduction was used. FINDINGS: CTA HEAD: The nondominant left vertebral artery terminates as a PICA branch. 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 Persistent origin of the bilateral posterior cerebral arteries. The bilateral internal carotid arteries and remainder of the anterior circulation is patent. Scattere d mild atherosclerotic calcification within the carotid siphons. The previous high-grade stenosis dis cristo M1 segment right MCA is now noted to be patent. No aneurysmal change is seen. CTA NECK: There is conventional arch vessel branching anatomy. There is a dominant right vertebral artery. Mini mal atherosclerotic calcification at the origin of the right vertebral artery. Congenitally diminutiv e left vertebral artery. Both vertebral arteries are otherwise patent throughout their course. The bilateral common carotid arteries are patent. There is only minimal atherosclerotic change at the bilateral carotid bifurcations without any signif icant narrowing. The remainder of the bilateral internal carotid arteries are patent. Bones: Severe degenerative disc disease C5-C6 and C6/C7 along with hypertrophic facet and uncovertebr al joint arthropathy throughout. IMPRESSION: Neck: 1. Dominant right vertebral artery. 2. Very minimal atherosclerotic change of the bilateral carotid bifurcations. Otherwise, widely paten t carotid vessels of the neck. Head: 3. Anatomic variation with the nondominant left vertebral artery terminating as PICA branch. Congenit ally small basilar artery. Correlate for any chronic symptoms of vertebrobasilar insufficiency. 4. Persistent origin bilateral lump inspector, unchanged from prior. 5. Otherwise, no large vessel intracranial arterial occlusion or aneurysmal change. No new stenosis s een. [facility], , 07/17/2024 12:43 PM
[2024-07-17] MEDS: SODIUM CHLORIDE 0.9% 1,000 ML IV ONE (13:08)
[2024-07-17] MEDS ORDERED: ALBUTEROL NEBULIZED 2.5 MG/3 ML INHALATION PRN (14:09)
[2024-07-17] MEDS: DOCUSATE 100 MG CAP PO SCH (19:41)
[2024-07-17] MEDS: ATORVASTATIN 40 MG TAB PO SCH (19:41)
[2024-07-17] MEDS: METOPROLOL TARTRATE 25 MG TAB PO SCH (19:42)
[2024-07-17] MEDS: levETIRAcetam IV 500 MG/5 ML VIAL IVP SCH (20:50)
[2024-07-17] MEDS ORDERED: APIXABAN 5 MG TAB PO SCH (21:00)
[2024-07-17] MEDS: ACYCLOVIR SODIUM 950 MG in SODIUM CHLORIDE 0.9% 250 ML IVPB SCH (21:24)
--- NOTE | 2024-07-17 23:37 | HP ---
HISTORY AND PHYSICAL CHIEF COMPLAINT: Change in mental status and unresponsiveness. HISTORY OF PRESENT ILLNESS: This is an 83-year-old gentleman with a past medical history of multiple medical problems, apparently taking pain medications. The last evening he was normal, but the patient became progressively confused with the remote control and this morning the patient was totally unresponsive, came to the ER, received a dose of Narcan without much change and the patient is being admitted for further evaluation and treatment. White count is elevated. The chest x-ray which I reviewed at length showed no evidence of any pneumonia. The patient is being evaluated for stroke at this time. The patient admitted for further evaluation. There is no history of fever, rigors, or chills at this time. PAST MEDICAL HISTORY: Reviewed include atrial fibrillation, COPD. Rest of the chart is also reviewed. HOME MEDICATIONS: Reviewed include [place] 10 mg. Rest of the medication, rest, doses noted. ALLERGIES: Lipitor. FAMILY HISTORY: Could not be taken because of change in mental status. SOCIAL HISTORY: Could not be taken because of change in mental status. REVIEW OF SYSTEMS: Could not be taken because of change in mental status. PHYSICAL EXAMINATION: GENERAL: The patient is unresponsive. VITAL SIGNS: Pulse is 58, blood pressure 126/67, respirations 16. HEENT: Conjunctivae normal. NECK: No jugular venous distention. CARDIOVASCULAR: S1, S2 muffled. RESPIRATION: Breath sounds diminished at the bases. A few scattered rhonchi. ABDOMEN: Soft, nontender. LEGS: No edema. No swelling. NERVOUS SYSTEM: No neck stiffness. Otherwise complete exam could not be performed. LABORATORY DATA: WBC 15.4. ASSESSMENT: 1. Change in mental status, unresponsive, possible acute stroke. 2. Rule out sepsis. 3. Acute renal failure. 4. Elevated WBC. 5. Troponin 0.044. 6. Chronic obstructive pulmonary disease. 7. History of deep vein thrombosis. 8. Hypertension. 9. History of degenerative joint disease and back pain. 10.History atrial fibrillation. 11.Multiple complex medical issues. RECOMMENDATIONS AND DISCUSSION: Continue current management and treatment. Otherwise, at this time I recommend to obtain the cultures and empiric antibiotics. Neuro checks, neurovascular workup. Neurology consultation. Resume the home medications. Repeat Narcan. Overall prognosis extremely guarded because of multiple complex medical issues and discussed with the family. Further recommendations to follow. MMODL / IJN: [id number] /
--- NOTE | 2024-07-18 00:51 | P.CNNES ---
History of Present Illness Consult date: 07/17/24 Requesting physician: Bam Preston Reason for Consult: Altered mental status History of Present Illness: Patient is a 83-year-old right-handed male came to the hospital by ambulance today at 9:01 AM for altered mental status. Patient is completely obtunded, not able to provide any history. Patient's and patient's son were both present by the bedside, who provided with a history. Patient's mentioned that yesterday he went to the [employer] for shopping, and was somewhat shaky. He got home and sat in the chair. He forgot how to work the remote control. At 7 PM last night, he took his pills and went to bed. At 5 AM, patient's heard him coughing. At 9 AM when he usually wakes up, she could not wake him up. Patient has arthritis of the right shoulder, which has been acting up for some time. He goes to [facility] and gets [place] and he takes 4 tablets every day. He was also given baclofen 10 mg 3 times daily. Patient's felt that his mentation was down because of taking pain medications. He continues to take his [place] and baclofen. As per EMS flowsheet when they arrived, patient was unresponsive. Patient did not wake up like he normally does. She went to check on him and she could not wake him up. Patient was recently seen by his doctor for shoulder injury to the right shoulder and was placed on a muscle relaxer and hydrocodone for the pain. Patient also on steroid. Patient has a pacemaker due to slow atrial fibrillation. 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 Patient was breathing normally. Patient's vitals was blood pressure 104/66, pulse rate 78 respiration 22 saturation 91%. Blood sugar 136. Patient's temperature is 99.1. Blood test shows WBC 15.04, hemoglobin 15.7. Platelets are normal. PT PTT normal. Electrolytes are normal, BUN 29 creatinine 1.47. Hepatic panel is normal. Troponin 0.044. UA negative. Urine drug screen positive for opiate. Blood alcohol level negative. CT head showed no acute intracranial process. I personally reviewed CT head, agree with the findings. Chest x-ray showed stable exam, no acute cardiopulmonary disease. EKG showed atrial fibrillation with aberrant conduction. Home medications include Eliquis 5 mg twice daily, aspirin 81 mg, simvastatin 40 mg, metoprolol Flomax. Patient had history of acute stroke on 05/12/2023, in which he was found to have 3 mm short segment subtotal occlusion involving the distal M1 segment of the right MCA. Patient was transferred to [facility], and underwent thrombectomy. Patient had no residual deficits from the stroke. Patient has history of atrial fibrillation, on Eliquis. No history of tobacco use, alcohol. He has hypertension but no diabetes. Patient has history of low back surgery, has 2 akash placement, 6 titanium screws. Patient at baseline talks normally, drives. He is slightly slowing down consistent with his age. In the ER it was noted that patient was given Narcan in the ER which did not help his mental status. Patient remained altered throughout the stay in the ER. Occasionally he would verbalize some words but not to any questions he was asked. Review of Systems ROS unobtainable: due to mental status Past Medical History Past Medical History: Atrial Fibrillation, COPD, CVA/TIA, Deep Vein Thrombosis (DVT), Hyperlipidemia, Hypertension, Prostate Disorder, Sleep Apnea/CPAP/BIPAP, Thyroid Disorder Additional Past Medical History / Comment(s): Meniere's disease, BPH, DJD, arthiritis, chronic bradycardia, and chronic back pain, diverticulitis. uses cpap History of Any Multi-Drug Resistant Organisms: None Reported Date of last positivie culture/infection: 2001? MDRO Source:: KNEE Past Surgical History: Back Surgery, Bowel Resection, Hernia Repair, Orthopedic Surgery, Pacemaker Additional Past Surgical History / Comment(s): 04/11/15 EP STUDY . Low back surgery with rods and screws. Left knee fluid drained off and patellar scraped. RIGHT inguinal & abdominal hernia repair. Past Anesthesia/Blood Transfusion Reactions: No Reported Reaction Additional Past Anesthesia/Blood Transfusion Reaction / Comment(s): Pt has never recieved blood. Type of Cardiac Device: Permanent Pacemaker Device Placement Date:: unk Past Psychological History: No Psychological Hx Reported Additional Psychological History / Comment(s): Pt resides with his spouse. He uses a cane or walker to ambulate. He drives. Smoking Status: Former smoker Past Alcohol Use History: Unable to Obtain Additional Past Alcohol Use History / Comment(s): Pt quit smoking in 1967. SMOKED FOR 4-6 YRS. PPD-1. Past Drug Use History: Unable to Obtain - Past Family History Mother History Unknown: Yes Family Medical History: No Reported History Additional Family Medical History / Comment(s): passed at 79, unknown cause Father History Unknown: Yes Family Medical History: No Reported History Additional Family Medical History / Comment(s): passed at 81yrs. Medications and Allergies Home Medications Medication Instructions Recorded Confirmed Type Finasteride [Proscar] 5 mg PO DAILY 10/03/14 07/17/24 History Docusate [Colace] 100 mg PO BID 10/14/15 07/17/24 History Apixaban [Eliquis] 5 mg PO BID 09/10/18 07/17/24 History Fish Oil/Dha/Epa [Fish Oil 1,200 1 cap PO DAILY 09/10/18 07/17/24 History mg Fish Oil] Levothyroxine Sodium [Synthroid] 50 mcg PO DAILY 09/10/18 07/17/24 History Metoprolol Tartrate [Lopressor] 25 mg PO BID 09/10/18 07/17/24 History Simvastatin [Zocor] 40 mg PO HS 09/10/18 07/17/24 History Tamsulosin [Flomax] 0.8 mg PO DAILY 09/10/18 07/17/24 History Aspirin EC [Ecotrin Low Dose] 81 mg PO DAILY 08/10/21 07/17/24 History Meclizine [Antivert] 25 mg PO BID 08/10/21 07/17/24 History Cider Vinegar [Apple Cider Vinegar] 300 mg PO DAILY 08/08/22 07/17/24 History Albuterol Inhaler [Ventolin Hfa 2 puff INHALATION RT-Q6H PRN 07/17/24 07/17/24 History Inhaler] Baclofen [Lioresal] 10 mg PO TID PRN 07/17/24 07/17/24 History HYDROcodone/APAP 10-325MG [[place] 1 tab PO QID 07/17/24 07/17/24 History 10-325] Lidocaine 5% Patch [Lidoderm] 1 patch TOPICAL DAILY 07/17/24 07/17/24 History Multivit-Min/FA/Lycopen/Lutein 1 tab PO DAILY 07/17/24 07/17/24 History [Centrum Silver Tablet] Mupirocin 2% Oint [Bactroban 2% 1 applic TOPICAL BID 07/17/24 07/17/24 History Oint] Triamterene/Hydrochlorothiazid 1 tab PO DAILY 07/17/24 07/17/24 History [Triamterene-Hctz 37.5-25 mg Tb] allopurinoL [Zyloprim] 100 mg PO DAILY 07/17/24 07/17/24 History predniSONE See Taper PO DIRECTED 07/17/24 07/17/24 History Allergies Allergy/AdvReac Type Severity Reaction Status Date / Time atorvastatin Allergy PER Verified 07/17/24 10:10 [facility] cephalexin [From Keflex] Allergy PER Verified 07/17/24 10:10 [facility] duloxetine Allergy PER Verified 07/17/24 10:10 [facility] escitalopram [From Lexapro] Allergy PER Verified 07/17/24 10:10 [facility] gabapentin Allergy PER Verified 07/17/24 10:10 [facility] levofloxacin [From Levaquin] Allergy PER Verified 07/17/24 10:10 [facility] niacin Allergy PER Verified 07/17/24 10:10 [facility] terazosin Allergy PER Verified 07/17/24 10:10 [facility] Physical Examination - Vital Signs Vital Signs: Vital Signs Temp Pulse Pulse Resp BP BP Pulse Ox 07/17/24 17:00 59 L 20 136/86 100 07/17/24 16:26 99.1 F 55 L 18 113/54 97 07/17/24 14:55 61 16 145/66 100 07/17/24 14:11 58 L 18 143/95 100 07/17/24 12:45 58 L 16 126/66 98 07/17/24 12:38 16 07/17/24 12:00 71 20 130/99 99 07/17/24 10:57 73 20 107/50 100 07/17/24 10:22 69 20 111/64 97 07/17/24 09:16 07/17/24 09:13 99 07/17/24 09:03 97.6 F 83 20 121/79 FiO2 07/17/24 17:00 07/17/24 16:26 07/17/24 14:55 07/17/24 14:11 07/17/24 12:45 07/17/24 12:38 07/17/24 12:00 07/17/24 10:57 07/17/24 10:22 07/17/24 09:16 50 07/17/24 09:13 07/17/24 09:03 Intake and Output 07/17/24 07/17/24 07/17/24 06:59 14:59 22:59 Intake Total 0 Output Total 800 Balance -800 Intake: Oral 0 Output: Urine 800 Other: Weight 95.254 kg 95.254 kg Patient is an elderly male, who is severely obtunded, encephalopathic, unresponsive. Patient is not in any distress. He is not responding to any verbal stimuli. Patient's GCS is 8, E1, V3, M4. On cranial nerve examination, patient is not opening his eyes. On minimally trying to open his eyes, he makes it more tightly shut, but pupils overall appears equal in size and gaze is midline. Visual dugan could not be tested. Extraocular muscles could not be tested. Face is symmetric. Lower cranial nerves cannot be tested. On muscle strength testing, patient is not obeying any commands. He has near constant focal twitching of his right shoulder, arm. Appears focal seizure. No focal twitching on the left side. Deep tendon reflexes are symmetric 1+ and plantars are flat. Sensory to touch cannot be assessed, he does withdraw to painful stimuli equally with all 4 extremities. Cerebellar function cannot be assessed. Tone is slightly increased on the right and bulk of muscles normal. Gait deferred.. On general examination, there is no carotid bruit or murmur, S1-S2 audible. Chest is clear on consultation. Abdomen is soft nontender. No organomegaly, bowel sounds present. Peripheral pulses are present. No peripheral edema. Results - Laboratory Findings CBC and BMP: 07/17/24 09:12 07/17/24 09:12 Abnormal Lab Findings: Abnormal Labs 07/17/24 07/17/24 07/17/24 09:12 09:12 09:12 WBC 15.04 H MCH 32.8 H Immature Gran # 0.06 H Neutrophils # 11.48 H Monocytes # 1.48 H Eosinophils # 0.01 L VBG pH Chloride 111 H BUN 29 H Creatinine 1.47 H Glucose 114 H Troponin I 0.044 H* Urine Opiates Screen 07/17/24 07/17/24 09:15 10:20 WBC MCH Immature Gran # Neutrophils # Monocytes # Eosinophils # VBG pH 7.30 L Chloride BUN Creatinine Glucose Troponin I Urine Opiates Screen Detected H Assessment and Plan Assessment: * 83-year-old male admitted with 1 to 2-day history of progressive mental decline, now completely unresponsive. Clinically patient is having focal twit my of the right shoulder, concerning for focal seizures. Patient has leukocytosis, and low-grade temperature. Rule out herpes encephalitis. Rule out focal seizures. 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 * Elevated troponin. Plan: * Patient empirically started on acyclovir 10 mg/kg IV every 12 hours (adjusted for renal functions by pharmacy) * Patient started on Keppra, given 1500 mg loading dose. We will decrease maintenance dose to 1000 mg twice daily because of renal insufficiency. * Stat EEG in the morning. * Patient cannot have MRI of the brain because of presence of pacemaker. * May need to repeat CT head in couple days. * Lumbar puncture to be considered, but patient is on Eliquis. May have to hold off on Eliquis. May bridge with Lovenox until Eliquis is on hold. 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 Correlate for any chronic symptoms of vertebrobasilar insufficiency. No large vessel occlusion or aneurysmal change. No new stenosis. Very minimal atherosclerotic change of the bilateral carotid bifurcation. * Consider ID consultation. * DVT prophylaxis: Patient on Eliquis. * Dr. Reyes Cobian to start neurology service from morning. Thank you for the consult. Time with Patient: Greater than 30
[2024-07-18] MEDS: APIXABAN 5 MG TAB PO SCH (03:38)
[2024-07-18] MEDS: LEVOTHYROXINE 50 MCG TAB PO SCH (06:00)
[2024-07-18] MEDS: levETIRAcetam IV 500 MG/5 ML VIAL IVP SCH (08:03)
[2024-07-18] MEDS: LIDOCAINE 4% PATCH TOPICAL SCH (08:04)
[2024-07-18 08:57] LABS: Basophils # (A) 0.04 10*3/uL (0.00-0.10); Basophils % (A) 0.3 %; Eosinophils # (A) 0.01 10*3/uL (0.04-0.35); Eosinophils % (A) 0.1 %; HCT 45.2 % (39.6-50.0); HGB 15.4 g/dL (13.0-17.0); Lymphocytes # (A) 1.31 10*3/uL (0.90-5.00); Lymphocytes % (A) 10.7 %; MCH 32.3 pg (27.0-32.0); MCHC 34.1 g/dL (32.0-37.0); MCV 94.8 fL (80.0-97.0); Mean Platelet Volume 10.1 fL (9.5-12.2); Monocytes # (A) 1.32 10*3/uL (0.20-1.00); Monocytes % (A) 10.7 %; Neutrophils # (A) 9.54 10*3/uL (1.80-7.70); Neutrophils % (A) 77.7 %; Platelet Count 161 10*3/uL (140-440); RBC 4.77 10*6/uL (4.40-5.60); RDW 14.6 % (11.5-14.5); WBC 12.28 10*3/uL (4.50-10.00)
[2024-07-18 09:11] LABS: African American GFR (CKD) 77 (>60 ml/min/1.73 sqM); Anion Gap 10 mmol/L; Blood Urea Nitrogen 25 mg/dL (9-20); Calcium 9.1 mg/dL (8.4-10.2); Carbon Dioxide 24 mmol/L (22-30); Chloride 108 mmol/L (98-107); Glucose 95 mg/dL (74-99); Non-African American GFR(CKD) 67 (>60 ml/min/1.73 sqM); Potassium 3.9 mmol/L (3.5-5.1); Sodium 142 mmol/L (137-145)
[2024-07-18] MEDS: FINASTERIDE 5 MG TAB PO SCH (09:48)
[2024-07-18] MEDS: allopurinoL 100 MG TAB PO SCH (09:48)
[2024-07-18] MEDS: MULTIVITAMINS, THERA 1 EACH TAB PO SCH (09:48)
[2024-07-18] MEDS: ASPIRIN 81 MG PO SCH (09:48)
[2024-07-18] MEDS: TRIAMTERENE-HCTZ 37.5-25MG 1 EACH CAP PO SCH (09:49)
[2024-07-18] MEDS: TAMSULOSIN 0.4 MG CAP.ER.24H PO SCH (09:49)
[2024-07-18] MEDS: KETOROLAC 15 MG/ML 1 ML VIAL IVP SCH (10:42)
--- NOTE | 2024-07-18 14:53 | P.PN ---
Subjective Progress Note Date: 07/18/24 I am seeing the patient for the first time during this hospital admission. Please refer to Dr. Hudson's note for further details. The daughters at bedside who provides some of the history. Daughter states that yesterday the patient was severely confused and it seems that he takes pain medication such as [place] from the [facility] and gets [place] about 4 tablets every day and he was given baclofen 10 mg 3 times a day and yesterday he was severely confused. The family feels today he is drastically better. Yesterday he was given Narcan which did not help. On presentation he was afebrile. White blood cell on presentation was 15,000 and the patient was started on Keppra and acyclovir as well as ceftriaxone. Unable for a lumbar puncture since the patient is on Eliquis. Patient denies of any headache currently. He does not recall much about yesterday. History of seizures that the daughter is aware of. The patient was started on Keppra 1000 mg every [address] Hudson. Objective - Vital Signs Vital signs: Vital Signs Temp 99.1 F 07/18/24 08:01 Pulse 94 07/18/24 12:36 Resp 16 07/18/24 12:36 BP 116/55 07/18/24 12:36 Pulse Ox 96 07/18/24 12:36 FiO2 50 07/17/24 09:16 Intake & Output 07/17/24 07/18/24 07/18/24 18:59 06:59 18:59 Intake Total 0 20 20 Output Total 800 600 400 Balance -800 -580 -380 Weight 95.254 kg 87.5 kg Intake: IV 20 20 Invasive Line 2 10 20 Invasive Line 3 10 Oral 0 0 Output: Urine 800 600 400 Other: Voiding Method Indwelling Catheter Indwelling Catheter # Voids 0 # Bowel Movements 0 - Exam General: Lying in bed and is not in acute distress. HENT: Supple neck. Neuro: Patient is drowsy but is awake able to voice. He is oriented to self as well as he stated he is in the hospital. He is following simple commands. Upon his daughter asking him who she was he correctly stated that it was his daughter named her with his other daughter and then after multiple attempts he correctly got her name correctly. He shows thumbs up and wiggle his toes. - Labs CBC & Chem 7: 07/18/24 08:48 07/18/24 08:48 Labs: Abnormal Lab Results - Last 24 Hours (Table) 07/18/24 07/18/24 Range/Units 08:48 08:48 WBC 12.28 H (4.50-10.00) 10*3/uL MCH 32.3 H (27.0-32.0) pg Immature Gran # 0.06 H (0.00-0.04) 10*3/uL Neutrophils # 9.54 H (1.80-7.70) 10*3/uL Monocytes # 1.32 H (0.20-1.00) 10*3/uL Eosinophils # 0.01 L (0.04-0.35) 10*3/uL Chloride 108 H (98-107) mmol/L BUN 25 H (9-20) mg/dL Assessment and Plan Assessment: * 83-year-old male admitted with 1 to 2-day history of progressive mental decline, now completely unresponsive. Clinically patient is having focal twitching of the right shoulder, concerning for focal seizures. Patient has leukocytosis, and reported low-grade temperature. Rule out herpes encephalitis which I feel unlikely. Rule out focal seizures. 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 * Elevated troponin. Plan: * Dr. Hudson empirically started on acyclovir 10 mg/kg IV every 12 hours (adjusted for renal functions by pharmacy) as well Keppra 1000 mg twice daily for seizure. * Stat EEG today. * Patient cannot have MRI of the brain because of presence of pacemaker. May need to repeat CT head in couple days. * Lumbar puncture to be considered, but patient is on Eliquis. May have to hold off on Eliquis. May bridge with Lovenox until Eliquis is on hold. 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 Correlate for any chronic symptoms of vertebrobasilar insufficiency. No large vessel occlusion or aneurysmal change. No new stenosis. Very minimal atherosclerotic change of the bilateral carotid bifurcation. * Consider ID consultation. * DVT prophylaxis: Patient on Eliquis. As stated earlier clinically the patient is doing better per family members as well as the nurse. Time with Patient: Less than 30
[2024-07-18] MEDS: ACETAMINOPHEN TAB 325 MG TAB PO PRN (16:01)
[2024-07-18] MEDS ORDERED: ZINC OXIDE PASTE (Z-GUARD) 1 APPLIC TOPICAL PRN (16:06)
[2024-07-18] MEDS: ACYCLOVIR SODIUM 950 MG in SODIUM CHLORIDE 0.9% 250 ML IVPB SCH (17:47)
[2024-07-18] MEDS: KETOROLAC 15 MG/ML 1 ML VIAL IVP PRN (19:53)
--- NOTE | 2024-07-18 22:49 | EEG ---
ELECTROENCEPHALOGRAM REPORT CLINICAL HISTORY: This is an 83-year-old gentleman with altered mental status and focal twitching. The video EEG is obtained to evaluate for seizure epileptiform activity. RELEVANT MEDICATION: Keppra. EEG TYPE: Routine 21 channel EEG with video using the 10/20 electrode system. DESCRIPTION: Wakefulness is only obtained. The background consists of abr-fw-sjyxgdde voltage of 4.5 to 5 hertz activity intermixed with delta activity and at times, was 1.5 to 2.5 hertz nonrhythmic polymorphic delta activity. There is no physiological stage 2 sleep architecture. There is significant diffuse myogenic artifact. Interictal: None. ACTIVATION PROCEDURE: Photic stimulation and hyperventilation are not performed. CLINICAL INTERPRETATION: This is an abnormal routine EEG during awake state. The background slowing is suggestive of severe encephalopathy. There is no focal slowing, epileptiform discharge, or seizure on the EEG. There is significant myogenic artifact during the study, which limited the study. A lack of epileptiform discharges does not rule an underlying epilepsy. Clinical correlation is recommended. MMSAAD / IJN: [id number] / NAOMI
--- NOTE | 2024-07-19 01:34 | PN ---
PROGRESS NOTE DATE OF SERVICE: 07/18/2024 SUBJECTIVE: This 83-year-old gentleman admitted with change in mental status and unresponsive, is being closely monitored. The patient had received Narcan with some effect. Neurology is also planning tentatively lumbar puncture. PAST MEDICAL HISTORY: Reviewed. REVIEW OF SYSTEMS: Could not be taken as the patient is still confused. CURRENT MEDICATIONS: Reviewed. PHYSICAL EXAMINATION: VITAL SIGNS: Pulse 87, blood pressure 110/70, and respirations 18. HEENT: Conjunctivae are normal. NECK: No JVD. CARDIOVASCULAR: S1 and S2. RESPIRATORY: Breath sounds . ABDOMEN: Soft. NERVOUS SYSTEM: Diffusely weak. LABORATORY DATA: WBC 12.28. ASSESSMENT: 1. Change in mental status, unresponsive, possibly secondary to medications. Acute stroke ruled out. 2. Rule out acute sepsis. 3. Acute renal failure. 4. Elevated white blood cells. 5. Troponin 0.045, indeterminate. 6. Chronic obstructive pulmonary disease. 7. History of deep venous thrombosis. 8. Hypertension. 9. History of degenerative joint disease and back pain. 10.History of atrial fibrillation. 11.Multiple complex medical issues. RECOMMENDATIONS: To continue current management and treatment. Otherwise, continue the neurology consultation and empiric antibiotics. I would also recommend Infectious Disease evaluation. Continue the rest of medications. Avoid pain medication at this time. Guarded prognosis. Further recommendations to follow. MMODL / IJN: [id number] / MTDD
[2024-07-19 08:47] LABS: Basophils # (A) 0.05 10*3/uL (0.00-0.10); Basophils % (A) 0.4 %; Eosinophils % (A) 0.8 %; HCT 48.1 % (39.6-50.0); Lymphocytes # (A) 1.42 10*3/uL (0.90-5.00); Lymphocytes % (A) 11.9 %; MCH 32.4 pg (27.0-32.0); MCHC 33.3 g/dL (32.0-37.0); MCV 97.4 fL (80.0-97.0); Monocytes # (A) 0.95 10*3/uL (0.20-1.00); Neutrophils # (A) 9.31 10*3/uL (1.80-7.70); Neutrophils % (A) 78.3 %; Platelet Count 170 10*3/uL (140-440); RBC 4.94 10*6/uL (4.40-5.60); RDW 14.4 % (11.5-14.5)
[2024-07-19 09:02] LABS: ALT 45 U/L (4-49); AST 123 U/L (17-59); African American GFR (CKD) 68 (>60 ml/min/1.73 sqM); Albumin 3.6 g/dL (3.5-5.0); Alkaline Phosphatase 79 U/L (38-126); Anion Gap 10 mmol/L; Blood Urea Nitrogen 29 mg/dL (9-20); Calcium 8.7 mg/dL (8.4-10.2); Carbon Dioxide 23 mmol/L (22-30); Chloride 109 mmol/L (98-107); Glucose 93 mg/dL (74-99); Non-African American GFR(CKD) 59 (>60 ml/min/1.73 sqM); Potassium 3.6 mmol/L (3.5-5.1); Sodium 142 mmol/L (137-145); Total Bilirubin 1.5 mg/dL (0.2-1.3); Total Protein 6.3 g/dL (6.3-8.2)
--- NOTE | 2024-07-19 10:47 | P.PN ---
Subjective Progress Note Date: 07/19/24 I am following-up the patient and he is accompanied with his and two son's. His son's feels there is improvement compared to initial presentation. Denies any new neurological issues. Patient continues to be afebrile. Objective - Vital Signs Vital signs: Vital Signs Temp 97.6 F 07/19/24 08:45 Pulse 80 07/19/24 08:45 Resp 18 07/19/24 08:45 BP 125/69 07/19/24 08:45 Pulse Ox 97 07/19/24 08:45 FiO2 50 07/17/24 09:16 Intake & Output 07/18/24 07/19/24 07/19/24 18:59 06:59 18:59 Intake Total 120 30 240 Output Total 400 600 Balance -280 -570 240 Weight 87.5 kg Intake: IV 20 30 Invasive Line 2 20 20 Invasive Line 3 10 Oral 100 240 Output: Urine 400 600 Other: Voiding Method Indwelling Catheter Indwelling Catheter Indwelling Catheter # Voids 0 0 # Bowel Movements 0 0 - Exam General: Sitting up in a recliner chair and is not in acute distress. Neuro: Patient is awake, alert, oriented to self, place and time. Is following simple commands. No aphasia. Pupils are round, equal, 3mm and reactive to light. Visual dugan are full to confrontation. No facial weakness. No dysarthria. Motor: Strength uppers are 5/5. He is wiggling toes symmetrically. - Labs CBC & Chem 7: 07/19/24 07:33 07/19/24 07:33 Labs: Abnormal Lab Results - Last 24 Hours (Table) 07/19/24 07/19/24 Range/Units 07:33 07:33 WBC 11.90 H (4.50-10.00) 10*3/uL MCV 97.4 H (80.0-97.0) fL MCH 32.4 H (27.0-32.0) pg Immature Gran # 0.07 H (0.00-0.04) 10*3/uL Neutrophils # 9.31 H (1.80-7.70) 10*3/uL Chloride 109 H (98-107) mmol/L BUN 29 H (9-20) mg/dL Total Bilirubin 1.5 H (0.2-1.3) mg/dL AST 123 H (17-59) U/L Microbiology - Last 24 Hours (Table) 07/17/24 15:10 Urine Culture - Final Urine,Catheterized 07/17/24 14:44 Blood Culture - Preliminary Blood Assessment and Plan Assessment: * 83-year-old male admitted with 1 to 2-day history of progressive mental decline, now completely unresponsive. Clinically patient is having focal twitching of the right shoulder, concerning for focal seizures. Patient has leukocytosis, and reported low-grade temperature. Rule out herpes encephalitis which I feel unlikely. Rule out focal seizures. 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 * Elevated troponin. Plan: * Dr. Hudson empirically started on acyclovir 10 mg/kg IV every 12 hours (adjusted for renal functions by pharmacy) as well Keppra 1000 mg twice daily for seizure. * Stat EEG 07/18/2024: Is abnormal. The background slowing is suggestive of severe encephalopathy. There is no focal slowing, epileptiform discharges or seizure. There is significant myogenic artifact during the study which limited the test. * Will get a repeat EEG tomorrow. * Ordered TSH and B12 level. * Patient cannot have MRI of the brain because of presence of pacemaker. May need to repeat CT head tomorrow.. * Lumbar puncture to be considered, but patient is on Eliquis. May have to hold off on Eliquis. May bridge with Lovenox until Eliquis is on hold. 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 Correlate for any chronic symptoms of vertebrobasilar insufficiency. No large vessel occlusion or aneurysmal change. No new stenosis. Very minimal ather osclerotic change of the bilateral carotid bifurcation. * Consider ID consultation. * DVT prophylaxis: Patient on Eliquis. The plan is discussed with patient, his and children as well nurse. Time with Patient: Less than 30
[2024-07-19] MEDS: THIAMINE 100 MG TAB PO SCH (18:27)
--- NOTE | 2024-07-20 05:42 | PN ---
PROGRESS NOTE DATE OF SERVICE: 07/19/2024 SUBJECTIVE: This is an 83-year-old gentleman with change in mental status, possibly multifactorial, is being closely monitored. The patient was noted to be confused. PHYSICAL EXAMINATION: VITAL SIGNS: Pulse 75, blood pressure 107/60, respirations 18. CHEST: Clear to auscultation. CARDIOVASCULAR: S1 and S2. ABDOMEN: Soft. LABORATORY DATA: Noted. Cultures are also negative so far. ASSESSMENT: 1. Change in mental status, unresponsive, possibly secondary to medications. Acute stroke ruled out. 2. Acute sepsis, ruled out. 3. Acute renal failure. 4. Elevated WBC. 5. Troponin , indeterminate. 6. Chronic obstructive pulmonary disease. 7. History of deep venous thrombosis. 8. Hypertension. 9. History of degenerative joint disease and back pain. 10.History of atrial fibrillation. 11.Multiple complex medical issues. RECOMMENDATIONS: Recommend to continue current management and treatment. Repeat labs closely. Follow with Neurology. Supplement vitamins. Guarded prognosis. Further recommendations to follow. MMODL / IJN: [id number] / NAOMI
[2024-07-20 06:38] LABS: Basophils # (A) 0.04 10*3/uL (0.00-0.10); Basophils % (A) 0.4 %; Eosinophils # (A) 0.35 10*3/uL (0.04-0.35); Eosinophils % (A) 3.9 %; HCT 40.7 % (39.6-50.0); HGB 13.9 g/dL (13.0-17.0); Lymphocytes # (A) 1.58 10*3/uL (0.90-5.00); Lymphocytes % (A) 17.4 %; MCH 32.5 pg (27.0-32.0); MCHC 34.2 g/dL (32.0-37.0); MCV 95.1 fL (80.0-97.0); Mean Platelet Volume 10.7 fL (9.5-12.2); Monocytes % (A) 9.9 %; Neutrophils % (A) 67.4 %; Platelet Count 163 10*3/uL (140-440); RBC 4.28 10*6/uL (4.40-5.60); RDW 14.2 % (11.5-14.5); WBC 9.06 10*3/uL (4.50-10.00)
[2024-07-20 06:54] LABS: African American GFR (CKD) 80 (>60 ml/min/1.73 sqM); Anion Gap 8 mmol/L; Blood Urea Nitrogen 32 mg/dL (9-20); C Reactive Protein 6.5 mg/dL (<1.0); Calcium 8.3 mg/dL (8.4-10.2); Carbon Dioxide 23 mmol/L (22-30); Chloride 107 mmol/L (98-107); Glucose 83 mg/dL (74-99); Non-African American GFR(CKD) 69 (>60 ml/min/1.73 sqM); Potassium 3.7 mmol/L (3.5-5.1); Sodium 138 mmol/L (137-145)
--- NOTE | 2024-07-20 07:40 | P.CONS ---
History of Present Illness - Reason for Consult Consult date: 07/19/24 Sepsis Requesting physician: Rizwana Carr - Chief Complaint Unresponsive x 1 day on admission - History of Present Illness Patient is a 83-year-old male with a past medical history significant for CVA TIA COPD atrial fibrillation DVT hypertension hyperlipidemia and prostate disorder patient presented to hospital 2 days ago on the day of presentation the hospital patient was found to be unresponsive and the was unable to wake him up EMS was called and the patient has been brought into the hospital newest medication prescribed for his symptoms started was the [place] there was no clear history of any fever or any chills and patient on presentation to the hospital was afebrile and no fever have been called subsequently patient was not tachycardic hypotensive mildly hypoxic and currently on 2 L current oxygen patient did have elevated white count of 15,000 which is down to 11.90. Creatinine was mildly elevated liver enzymes are normal initially was slightly up today with a bilirubin of 1.5 and AST 123 UA has been negative urine testing positive for opiates blood urine culture have been negative so far patient did have a chest x-ray no acute cardiopulmonary disease process patient has been empirically treated with acyclovir and ceftriaxone infe ctious disease was consulted last evening for sepsis patient did have improvement in his mentation as reported by the daughter at the bedside he seemed to be aware of his surrounding when asked specifically denies having any headache or URI symptoms no chest pain shortness of breath or cough no nausea no vomiting no abdominal pain no diarrhea or urinary symptoms Review of Systems Positive point and negatives has been mentioned in the HPI, complete review of systems was performed and all other systems are negative Past Medical History Past Medical History: Atrial Fibrillation, COPD, CVA/TIA, Deep Vein Thrombosis (DVT), Hyperlipidemia, Hypertension, Prostate Disorder, Sleep Apnea/CPAP/BIPAP, Thyroid Disorder Additional Past Medical History / Comment(s): Meniere's disease, BPH, DJD, arthiritis, chronic bradycardia, and chronic back pain, diverticulitis. uses cpap History of Any Multi-Drug Resistant Organisms: None Reported Year Discovered:: 2001? MDRO Source:: KNEE Past Surgical History: Back Surgery, Bowel Resection, Hernia Repair, Orthopedic Surgery, Pacemaker Additional Past Surgical History / Comment(s): 04/11/15 EP STUDY . Low back surgery with rods and screws. Left knee fluid drained off and patellar scraped. RIGHT inguinal & abdominal hernia repair. Past Anesthesia/Blood Transfusion Reactions: No Reported Reaction Additional Past Anesthesia/Blood Transfusion Reaction / Comm: Pt has never recieved blood. Type of Cardiac Device: Permanent Pacemaker Device Placement Date:: unk Past Psychological History: No Psychological Hx Reported Additional Psychological History / Comment(s): Pt resides with his spouse. He uses a cane or walker to ambulate. He drives. Smoking Status: Former smoker Past Alcohol Use History: Unable to Obtain Additional Past Alcohol Use History / Comment(s): Pt quit smoking in 1967. SMOKED FOR 4-6 YRS. PPD-1. Past Drug Use History: Unable to Obtain - Past Family History Mother History Unknown: Yes Family Medical History: No Reported History Additional Family Medical History / Comment(s): passed at 79, unknown cause Father History Unknown: Yes Family Medical History: No Reported History Additional Family Medical History / Comment(s): passed at 81yrs. Medications and Allergies Home Medications Medication Instructions Recorded Confirmed Type Finasteride [Proscar] 5 mg PO DAILY 10/03/14 07/17/24 History Docusate [Colace] 100 mg PO BID 10/14/15 07/17/24 History Apixaban [Eliquis] 5 mg PO BID 09/10/18 07/17/24 History Fish Oil/Dha/Epa [Fish Oil 1,200 1 cap PO DAILY 09/10/18 07/17/24 History mg Fish Oil] Levothyroxine Sodium [Synthroid] 50 mcg PO DAILY 09/10/18 07/17/24 History Metoprolol Tartrate [Lopressor] 25 mg PO BID 09/10/18 07/17/24 History Simvastatin [Zocor] 40 mg PO HS 09/10/18 07/17/24 History Tamsulosin [Flomax] 0.8 mg PO DAILY 09/10/18 07/17/24 History Aspirin EC [Ecotrin Low Dose] 81 mg PO DAILY 08/10/21 07/17/24 History Meclizine [Antivert] 25 mg PO BID 08/10/21 07/17/24 History Cider Vinegar [Apple Cider Vinegar] 300 mg PO DAILY 08/08/22 07/17/24 History Albuterol Inhaler [Ventolin Hfa 2 puff INHALATION RT-Q6H PRN 07/17/24 07/17/24 History Inhaler] Baclofen [Lioresal] 10 mg PO TID PRN 07/17/24 07/17/24 History HYDROcodone/APAP 10-325MG [[place] 1 tab PO QID 07/17/24 07/17/24 History 10-325] Lidocaine 5% Patch [Lidoderm] 1 patch TOPICAL DAILY 07/17/24 07/17/24 History Multivit-Min/FA/Lycopen/Lutein 1 tab PO DAILY 07/17/24 07/17/24 History [Centrum Silver Tablet] Mupirocin 2% Oint [Bactroban 2% 1 applic TOPICAL BID 07/17/24 07/17/24 History Oint] Triamterene/Hydrochlorothiazid 1 tab PO DAILY 07/17/24 07/17/24 History [Triamterene-Hctz 37.5-25 mg Tb] allopurinoL [Zyloprim] 100 mg PO DAILY 07/17/24 07/17/24 History predniSONE See Taper PO DIRECTED 07/17/24 07/17/24 History Allergies Allergy/AdvReac Type Severity Reaction Status Date / Time atorvastatin Allergy PER Verified 07/17/24 10:10 [facility] cephalexin [From Keflex] Allergy PER Verified 07/17/24 10:10 [facility] duloxetine Allergy PER Verified 07/17/24 10:10 [facility] escitalopram [From Lexapro] Allergy PER Verified 07/17/24 10:10 [facility] gabapentin Allergy PER Verified 07/17/24 10:10 [facility] levofloxacin [From Levaquin] Allergy PER Verified 07/17/24 10:10 [facility] niacin Allergy PER Verified 07/17/24 10:10 [facility] terazosin Allergy PER Verified 07/17/24 10:10 [facility] Physical Exam Vitals: Vital Signs Temp Pulse Resp BP Pulse Ox 07/19/24 08:45 97.6 F 80 18 125/69 97 07/19/24 03:13 98.1 F 70 18 130/69 95 07/18/24 23:23 98.0 F 72 16 122/73 96 07/18/24 19:42 98.0 F 79 16 126/74 99 07/18/24 16:00 98.9 F 87 18 121/71 96 Intake and Output 07/18/24 07/19/24 07/19/24 22:59 06:59 14:59 Intake Total 120 10 240 Output Total 200 400 Balance -80 -390 240 Intake: IV 20 10 Invasive Line 2 10 10 Invasive Line 3 10 Oral 100 240 Output: Urine 200 400 Other: Voiding Method Indwelling Catheter Indwelling Catheter Indwelling Catheter # Voids 0 # Bowel Movements 0 Weight 87.5 kg GENERAL DESCRIPTION: Elderly male lying in bed, no distress. No tachypnea or accessory muscle of respiration use. HEENT: Shows Pallor , no scleral icterus. Oral mucous membrane is dry. NECK: Trachea central, no thyromegaly. LUNGS: Unlabored breathing. Clear to auscultation anteriorly. No wheeze or crackle. HEART: S1, S2, regular rate and rhythm. No loud murmur ABDOMEN: Soft, no tenderness , guarding or rigidity, no organomegaly EXTREMITIES: No edema of feet. SKIN: No rash, no masses palpable. NEUROLOGICAL: The patient is awake, alert, no neck rigidity, mood and affect normal. Results CBC & Chem 7: 07/20/24 05:58 07/20/24 05:58 Labs: Abnormal Lab Results - Last 24 Hours (Table) 07/19/24 07/19/24 Range/Units 07:33 07:33 WBC 11.90 H (4.50-10.00) 10*3/uL MCV 97.4 H (80.0-97.0) fL MCH 32.4 H (27.0-32.0) pg Immature Gran # 0.07 H (0.00-0.04) 10*3/uL Neutrophils # 9.31 H (1.80-7.70) 10*3/uL Chloride 109 H (98-107) mmol/L BUN 29 H (9-20) mg/dL Total Bilirubin 1.5 H (0.2-1.3) mg/dL AST 123 H (17-59) U/L Microbiology - Last 24 Hours (Table) 07/17/24 15:10 Urine Culture - Final Urine,Catheterized 07/17/24 14:44 Blood Culture - Preliminary Blood Assessment and Plan (1) Allergy to multiple antibiotics Current Visit: Yes Status: Acute Code(s): Z88.1 - ALLERGY STATUS TO OTHER ANTIBIOTIC AGENTS SNOMED Code(s): 668648526 (2) Altered mental status Current Visit: Yes Status: Acute Code(s): R41.82 - ALTERED MENTAL STATUS, UNSPECIFIED SNOMED Code(s): 259481134 (3) Leukocytosis Current Visit: No Status: Acute Code(s): D72.829 - ELEVATED WHITE BLOOD CELL COUNT, UNSPECIFIED SNOMED Code(s): 873544469 Plan: 1patient presented hospital with episode of unresponsiveness questionably medication related as the patient seem to recently started with [place] in outpatient setting patient did not have any fever during this hospital stay and the patient seem to be back to his baseline within 48 hours as reported by the daughter with no neck rigidity will make serious infection/cellulitis to be less likely patient is currently on empiric acyclovir per neurology 2-patient also have elevated white count elevation but no fever chest x-ray did not show acute infiltrate UA has been negative slight worsening of the liver enzymes questionably abdominal source 3-patient with multiple antibiotic ALLERGIES that would limit the number of antibiotic safe to use 4-we will check an ultrasound of the liver and gallbladder area and for now we will continue with Rocephin while waiting for the workup to be completed We will follow on clinical condition and cultures to further adjust medication if needed Thank you for this consultation we will follow the patient along with you Dictation was produced using [employer] dictation software. please excuse any grammatical, word or spelling errors. Time with Patient: Greater than 30
[2024-07-20 08:44] LABS: Procalcitonin <0.20 ng/mL (0.02-0.50)
--- NOTE | 2024-07-20 10:03 | CT ---
EXAMINATION TYPE: CT brain wo/w con DATE OF EXAM: 07/20/2024 9:56 AM COMPARISON: 07/17/2024 CLINICAL INDICATION: Male, 83 years old with history of altered mental status, confusion. Pt urinatin g blood intermittently x 2 weeks, lower abdomina pain, nausea, diarrhea, TECHNIQUE: CT of the brain before and after administration of 100 mL Isovue 300 IV contrast. Coronal and sagittal reconstructions performed. CT DLP: 1230.9 mGycm, Automated exposure control for dose reduction was used. FINDINGS: There is no evidence of acute intracranial hemorrhage, acute ischemic changes, mass, mass-effect, or extra-axial fluid collection. There is no effacement of cerebral sulci or basal subarachnoid cister ns. There is no hydrocephalus. There is no midline shift. Castillo-white matter distinction is preserv ed. Mild volume loss overlying the bilateral cerebral convexities. Mild patchy white matter hypodensities in both cerebral hemispheres. Dural venous sinuses are patent. Dominant right vertebral artery. Patchy artifacts posterior cranial fossa. No enhancing intracranial lesion is seen. Prior resection changes and to the right mastoid process. Mild mucosal thickening anterior ethmoid ai r cells. Orbits and globes appear intact. IMPRESSION: 1. Similar mild cerebral atrophy and mild patchy burden of chronic small vessel ischemic disease. No acute intracranial abnormality seen. 2. No enhancing intracranial lesions are seen. [facility], , 07/20/2024 10:01 AM
--- NOTE | 2024-07-20 13:44 | P.PN ---
Subjective Progress Note Date: 07/20/24 I am following-up with the patient and per his son, he is more drowsy today. Objective - Vital Signs Vital signs: Vital Signs Temp 97.5 F L 07/20/24 12:03 Pulse 65 07/20/24 12:03 Resp 18 07/20/24 12:03 BP 127/78 07/20/24 12:03 Pulse Ox 97 07/20/24 12:03 FiO2 50 07/17/24 09:16 Intake & Output 07/19/24 07/20/24 07/20/24 18:59 06:59 18:59 Intake Total 980 Output Total 400 350 400 Balance 580 -350 -400 Weight 87 kg Intake: Intake, IV Titration 150 Amount Acyclovir Sodium 950 mg 100 In Sodium Chloride 0.9% 250 ml @ 100 mls/hr IVPB Q8H ILYA Rx#:[id number] cefTRIAXone 1 gm In 50 Sodium Chloride 0.9% 50 ml @ 100 mls/hr IVPB Q24HR ILYA Rx#:[id number] Oral 830 Output: Urine 400 350 400 Other: Voiding Method Indwelling Catheter Urinal Urinal # Voids 0 # Bowel Movements 0 0 - Exam General: Lying in bed and is not in acute distress. Neuro: Patient is slightly drowsy but is awakeable to voice. Is oriented to self and states he is in [facility]. He is following simple commands. No facial weakness. No dysarthria. Motor: Strength is lifting bilateral uppers above gravity equally and wiggling toes. - Labs CBC & Chem 7: 07/20/24 05:58 07/20/24 05:58 Labs: Abnormal Lab Results - Last 24 Hours (Table) 07/20/24 07/20/24 Range/Units 05:58 05:58 RBC 4.28 L (4.40-5.60) 10*6/uL MCH 32.5 H (27.0-32.0) pg Immature Gran # 0.09 H (0.00-0.04) 10*3/uL BUN 32 H (9-20) mg/dL Calcium 8.3 L (8.4-10.2) mg/dL C-Reactive Protein 6.5 H (<1.0) mg/dL Microbiology - Last 24 Hours (Table) 07/17/24 14:44 Blood Culture - Preliminary Blood Assessment and Plan Assessment: * 83-year-old male admitted with 1 to 2-day history of progressive mental decline, now completely unresponsive. Clinically patient is having focal twitching of the right shoulder, concerning for focal seizures. Patient has leukocytosis, and reported low-grade temperature. Rule out herpes encephalitis which I feel unlikely. Rule out focal seizures. 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 * Elevated troponin. Plan: * Dr. Hudson empirically started on acyclovir 10 mg/kg IV every 12 hours (adjusted for renal functions by pharmacy) as well Keppra 1000 mg twice daily for seizure. * Stat EEG 07/18/2024: Is abnormal. The background slowing is suggestive of severe encephalopathy. There is no focal slowing, epileptiform discharges or seizure. There is significant myogenic artifact during the study which limited the test. * Pending repeat EEG report from today. 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 May need to repeat CT head tomorrow.. * Lumbar puncture to be considered, but patient is on Eliquis. May have to hold off on Eliquis. May bridge with Lovenox until Eliquis is on hold. 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 Correlate for any chronic symptoms of vertebrobasilar insufficiency. No large vessel occlusion or aneurysmal change. No new stenosis. Very minimal ather osclerotic change of the bilateral carotid bifurcation. * ID is consulted. * DVT prophylaxis: Patient on Eliquis. The plan is discussed with patient's son who is at bedside. Time with Patient: Less than 30
--- NOTE | 2024-07-20 15:47 | US ---
EXAMINATION TYPE: US abdomen limited DATE OF EXAM: 07/20/2024 COMPARISON: NONE CLINICAL INDICATION: Male, 83 years old with history of Elevated liver enzymes; TECHNIQUE: Grayscale and color Doppler imaging of the right upper quadrant was performed. FINDINGS: EXAM MEASUREMENTS: Liver Length: 14.4 cm Gallbladder Wall: .3 cm CBD: .7 cm Right Kidney: 11 x 5.9 x 4.2 cm COGNOS REPORT DEVELOPER NOTES: Limited due to bowel gas. Pancreas: Obscured by bowel gas Liver: No focal lesion seen. Gallbladder: No stones seen. No abnormal distention, wall thickening, or surrounding fluid. Evidence for sonographic Woodward's sign: No CBD: Elo dilated. Right Kidney: Cortical thinning. No hydronephrosis. There is a tiny 1.2 cm cortical cyst at the mid to lower pole. IMPRESSION: 1. No gallstones. 2. Bile duct is dilated at 7 mm no acceptable given patient's age. Correlate with alkaline phosphatas e and bilirubin levels. 3. On the right, there are changes of chronic medical renal disease. No hydronephrosis. [facility], Workstation: [id number], 07/20/2024 3:44 PM
[2024-07-20] MEDS: FOLIC ACID 1 MG TAB PO SCH (16:38)
[2024-07-20] MEDS: MULTIVITAMINS, THERA 1 EACH TAB PO SCH (16:38)
--- NOTE | 2024-07-20 16:50 | P.PN ---
Subjective Progress Note Date: 07/20/24 Principal diagnosis: Reason for follow-up is leukocytosis Patient is a 83-year-old male with a past medical history significant for CVA TIA COPD atrial fibrillation DVT hypertension hyperlipidemia and prostate disorder patient presented to hospital after patient was found to be unresponsive at home no clear history of any fever however he did have some elevated white count. On today's evaluation that is 07/20/2024, the patient continues to be afebrile, the patient is on 2 L nasal cannula oxygen and breathing comfortably, the Pt denies having any chest pain cough has been reported by the family the bedside no vomiting or diarrhea. Patient white count normalized to 9.06 creatinine 1.02 Objective - Vital Signs Vital signs: Vital Signs Temp 97.5 F L 07/20/24 12:03 Pulse 65 07/20/24 12:03 Resp 18 07/20/24 12:03 BP 127/78 07/20/24 12:03 Pulse Ox 97 07/20/24 12:03 FiO2 50 07/17/24 09:16 Intake & Output 07/19/24 07/20/24 07/20/24 18:59 06:59 18:59 Intake Total 980 Output Total 400 350 400 Balance 580 -350 -400 Weight 87 kg Intake: Intake, IV Titration 150 Amount Acyclovir Sodium 950 mg 100 In Sodium Chloride 0.9% 250 ml @ 100 mls/hr IVPB Q8H IL[facility] Rx#:[id number] cefTRIAXone 1 gm In 50 Sodium Chloride 0.9% 50 ml @ 100 mls/hr IVPB Q24HR ILYA Rx#:[id number] Oral 830 Output: Urine 400 350 400 Other: Voiding Method Indwelling Catheter Urinal Urinal # Voids 0 # Bowel Movements 0 0 - Exam GENERAL DESCRIPTION: An elderly male lying in bed in no distress RESPIRATORY SYSTEM: Unlabored breathing , decreased breath sounds at bases HEART: S1 S2 regular rate and rhythm , ABDOMEN: Soft , no tenderness EXTREMITIES: No edema feet - Labs CBC & Chem 7: 07/20/24 05:58 07/20/24 05:58 Labs: Abnormal Lab Results - Last 24 Hours (Table) 07/20/24 07/20/24 Range/Units 05:58 05:58 RBC 4.28 L (4.40-5.60) 10*6/uL MCH 32.5 H (27.0-32.0) pg Immature Gran # 0.09 H (0.00-0.04) 10*3/uL BUN 32 H (9-20) mg/dL Calcium 8.3 L (8.4-10.2) mg/dL C-Reactive Protein 6.5 H (<1.0) mg/dL Microbiology - Last 24 Hours (Table) 07/17/24 14:44 Blood Culture - Preliminary Blood Assessment and Plan (1) Allergy to multiple antibiotics Current Visit: Yes Status: Acute Code(s): Z88.1 - ALLERGY STATUS TO OTHER ANTIBIOTIC AGENTS SNOMED Code(s): 081372719 (2) Altered mental status Current Visit: Yes Status: Acute Code(s): R41.82 - ALTERED MENTAL STATUS, UNSPECIFIED SNOMED Code(s): 915072537 (3) Leukocytosis Current Visit: No Status: Acute Code(s): D72.829 - ELEVATED WHITE BLOOD CELL COUNT, UNSPECIFIED SNOMED Code(s): 699337132 Plan: 1patient presented hospital with episode of unresponsiveness questionably medication related as the patient seem to recently started with [place] in outpatient setting patient did not have any fever during this hospital stay and the patient seem to be back to his baseline within 48 hours as reported by the daughter with no neck rigidity will make serious infection/cellulitis to be less likely patient is currently on empiric acyclovir per neurology 2-patient also have elevated white count elevation but no fever chest x-ray did not show acute infiltrate UA has been negative slight worsening of the liver enzymes questionably abdominal source 3-patient with multiple antibiotic ALLERGIES that would limit the number of antibiotic safe to use 4-currently waiting for ultrasound of the liver and gallbladder area and will also check a chest x-ray giving her mild symptoms of cough and continue with empiric Rocephin as her white count has normalized Family at the bedside question answered Dictation was produced using [employer] dictation software. please excuse any grammatical, word or spelling errors.
--- NOTE | 2024-07-20 17:18 | XR ---
EXAMINATION TYPE: XR chest 2V DATE OF EXAM: 07/20/2024 CLINICAL INDICATION: Male, 83 years old with history of shortness of breath, increased coughing, TECHNIQUE: Frontal and lateral views of the chest are obtained. COMPARISON: Chest x-ray 3 days ago FINDINGS: Persistent cardiomegaly with dual lead pacemaker. There is patchy bibasilar opacities. Uppe r lungs remain clear. The osseous structures are intact. IMPRESSION: Cardiomegaly with bibasilar opacities favoring atelectasis. [facility], , 07/20/2024 5:16 PM
--- NOTE | 2024-07-21 01:48 | EEG ---
ELECTROENCEPHALOGRAM REPORT CLINICAL HISTORY: This is an 83-year-old gentleman with altered mental status. The video EEG is obtained to evaluate for seizure epileptiform activity. RELEVANT MEDICATION: Keppra. EEG TYPE: Routine 21 channel EEG with video using the 10/20 electrode placement system. DESCRIPTION: Wakefulness and drowsiness are obtained. During awake state, the background consists of wkr-st-bagelzcy voltage of 6.5 to 7 hertz activity. There was no physiological stage 2 sleep architecture. There is no focal slowing. Interictal and ictal is none. ACTIVATION PROCEDURE: Photic stimulation did not evoke a posterior driving response. There is no abnormality during the photic stimulation. Hyperventilation is not performed. CLINICAL INTERPRETATION: This is an abnormal routine EEG. The background slowing is suggestive of mild encephalopathy. There is no focal slowing, epileptiform discharge, or seizure on the EEG. Lack of epileptiform discharges does not rule out underlying epilepsy. Today's EEG is better compared to the EEG that was performed on 07/18/2024. MMSAAD / IJN: [id number] /
--- NOTE | 2024-07-21 04:17 | P.PN ---
Subjective Progress Note Date: 07/20/24 This is a pleasant 83-year-old male who was admitted with altered mental status, multifactorial being closely monitored remains confused with concerns of possible medication effect with neurology and infectious disease following. Patient is significantly weak and recommend PT/OT therapy evaluation. Patient may need ECF on discharge. Case management consulted placing referrals as well. Patient is afebrile with no reported chest pain or shortness of breath. Review of systems: Unable to completely assess as patient remains confused Active Medications Acetaminophen (Acetaminophen Tab 325 Mg Tab) 650 mg PO Q6HR PRN PRN Reason: Fever and/ or Pain Last Admin: 07/18/24 23:27 Dose: 650 mg Albuterol Sulfate (Albuterol Nebulized 2.5 Mg/3 Ml) 2.5 mg INHALATION RT-Q6H PRN PRN Reason: Shortness Of Breath Allopurinol (Allopurinol 100 Mg Tab) 100 mg PO DAILY [facility] Last Admin: 07/20/24 08:04 Dose: 100 mg Apixaban (Apixaban 5 Mg Tab) 5 mg PO BID [facility]; Protocol Last Admin: 07/20/24 19:26 Dose: 5 mg Aspirin (Aspirin 81 Mg) 81 mg PO DAILY [facility] Last Admin: 07/20/24 08:04 Dose: 81 mg Atorvastatin Calcium (Atorvastatin 40 Mg Tab) 40 mg PO HS [facility] Last Admin: 07/20/24 19:26 Dose: 40 mg Docusate Sodium (Docusate 100 Mg Cap) 100 mg PO BID [facility] Last Admin: 07/20/24 19:26 Dose: 100 mg Finasteride (Finasteride 5 Mg Tab) 5 mg PO DAILY [facility] Last Admin: 07/20/24 08:04 Dose: 5 mg Folic Acid (Folic Acid 1 Mg Tab) 1 mg PO DAILY@1200 [facility] Last Admin: 07/20/24 16:38 Dose: 1 mg Ceftriaxone Sodium 1 gm/ (Sodium Chloride) 50 mls @ 100 mls/hr IVPB Q24HR [facility]; Protocol Last Admin: 07/20/24 08:04 Dose: 100 mls/hr Acyclovir Sodium 950 mg/ (Sodium Chloride) 269 mls @ 100 mls/hr IVPB Q8H [facility] Last Admin: 07/21/24 01:48 Dose: 100 mls/hr Ketorolac Tromethamine (Ketorolac 15 Mg/Ml 1 Ml Vial) 15 mg IVP Q6HR PRN PRN Reason: Mild to Moderate Pain (1 - 6) Stop: 07/23/24 10:27 Last Admin: 07/19/24 21:18 Dose: 15 mg Levetiracetam (Levetiracetam Iv 500 Mg/5 Ml Vial) 1,000 mg IVP Q12HR [facility] Last Admin: 07/20/24 19:26 Dose: 1,000 mg Levothyroxine Sodium (Levothyroxine 50 Mcg Tab) 50 mcg PO DAILY@0630 [facility] Last Admin: 07/20/24 06:30 Dose: 50 mcg Lidocaine (Lidocaine 4% Patch) 1 patch TOPICAL DAILY [facility] Last Admin: 07/20/24 08:09 Dose: 1 patch Metoprolol Tartrate (Metoprolol Tartrate 25 Mg Tab) 25 mg PO BID [facility] Last Admin: 07/20/24 19:26 Dose: 25 mg Multivitamins (Multivitamins, Thera 1 Each Tab) 1 each PO DAILY@1200 [facility] Last Admin: 07/20/24 16:38 Dose: 1 each Petrolatum (Zinc Oxide Paste (Z-Guard) 1 Applic) 1 applic TOPICAL BID PRN; Protocol PRN Reason: Wound Healing Tamsulosin HCl (Tamsulosin 0.4 Mg Cap.Er.24h) 0.8 mg PO DAILY [facility] Last Admin: 07/20/24 08:09 Dose: 0.8 mg Thiamine HCl (Thiamine 100 Mg Tab) 100 mg PO BID-W/MEALS [facility] Last Admin: 07/20/24 18:09 Dose: 100 mg Triamterene/Hydrochlorothiazide (Triamterene-Hctz 37.5-25mg 1 Each Cap) 1 each PO DAILY [facility] Last Admin: 07/20/24 08:04 Dose: 1 each PHYSICAL EXAMINATION: GENERAL: The patient is alert and oriented x1-2, Well developed, elderly appearing HEENT: Pupils are round and equally reacting to light. EOMI. no scleral icterus. No conjunctival pallor. Normocephalic, atraumatic. No pharyngeal erythema. No thyromegaly. CARDIOVASCULAR: S1 and S2 muffled PULMONARY: diminished breath sounds bilaterally with no wheezing or rhonchi noted. ABDOMEN: soft. Nontender on exam. non-distended, normoactive bowel sounds. No palpable organomegaly. MUSCULOSKELETAL: No joint swelling or deformity. EXTREMITIES: No cyanosis, clubbing, or pedal edema. NEUROLOGICAL: Gross neurological examination did not reveal any focal deficits. Diffuse weakness SKIN: No rashes. Assessment: Change in mental status, unresponsive, possibly substance secondary to medications, acute stroke ruled out Acute sepsis, ruled out Acute renal failure improving Troponin, indeterminate Chronic obstructive pulmonary disease, not in exacerbation History of DVT Hypertension History of degenerative joint disease and back pain History of atrial fibrillation GI prophylaxis DVT prophylaxis No code Plan: Recommend to continue with current medications and management with infectious disease and neurology following. CVA ruled out PT/OT therapy evaluation and case management consult for possible ECF on discharge as patient is extremely weak Follow-up on repeat labs monitor kidney functions. Replace electrolytes per protocol Will await PT/OT therapy and case management to discuss discharge planning to ECF Possible discharge planning in the next 24 to 48 hours Due to multiple complex medical issues, overall prognosis is guarded The impression and plan of care has been dictated by Renu Cantu, nurse practitioner as directed. Dr. Bruno MD I have performed a history and examination and MDM of this patient, discussed the same with the dictator, and agree with the dictator's assessment and plan as written ,documented as a scribe. Based on total visit time, I have performed more than 50% of the visit. Any additional findings or plans will be noted. Objective - Vital Signs Vital signs: Vital Signs Temp 98.0 F 07/20/24 23:55 Pulse 69 07/20/24 23:55 Resp 17 07/20/24 23:55 BP 118/69 07/20/24 23:55 Pulse Ox 96 07/20/24 23:55 FiO2 50 07/17/24 09:16 Intake & Output 07/20/24 07/20/24 07/21/24 06:59 18:59 06:59 Intake Total 240 Output Total 350 400 300 Balance -350 -160 -300 Weight 87 kg Intake: Oral 240 Output: Urine 350 400 300 Other: Voiding Method Urinal Urinal Urinal Diaper Diaper # Bowel Movements 0 - Labs CBC & Chem 7: 07/20/24 05:58 07/20/24 05:58 Labs: Abnormal Lab Results - Last 24 Hours (Table) 07/20/24 07/20/24 Range/Units 05:58 05:58 RBC 4.28 L (4.40-5.60) 10*6/uL MCH 32.5 H (27.0-32.0) pg Immature Gran # 0.09 H (0.00-0.04) 10*3/uL BUN 32 H (9-20) mg/dL Calcium 8.3 L (8.4-10.2) mg/dL C-Reactive Protein 6.5 H (<1.0) mg/dL Microbiology - Last 24 Hours (Table) 07/17/24 14:44 Blood Culture - Preliminary Blood
[2024-07-21 04:45] VITALS: RESP 18
[2024-07-21 07:53] LABS: African American GFR (CKD) 80 (>60 ml/min/1.73 sqM); Anion Gap 7 mmol/L; Blood Urea Nitrogen 26 mg/dL (9-20); Calcium 8.2 mg/dL (8.4-10.2); Carbon Dioxide 20 mmol/L (22-30); Chloride 111 mmol/L (98-107); Glucose 95 mg/dL (74-99); Non-African American GFR(CKD) 69 (>60 ml/min/1.73 sqM); Sodium 138 mmol/L (137-145)
[2024-07-21 07:54] LABS: Magnesium 2.1 mg/dL (1.6-2.3); Potassium 4.4 mmol/L (3.5-5.1)
--- NOTE | 2024-07-21 13:46 | P.PN ---
Subjective Progress Note Date: 07/21/24 I am following-up with the patient and per the daughter who is at bedside, she feels patient is better today compared to yesterday. Objective - Vital Signs Vital signs: Vital Signs Temp 97.8 F 07/21/24 08:35 Pulse 74 07/21/24 08:35 Resp 18 07/21/24 08:35 BP 120/69 07/21/24 08:35 Pulse Ox 96 07/21/24 08:35 FiO2 50 07/17/24 09:16 Intake & Output 07/20/24 07/21/24 07/21/24 18:59 06:59 18:59 Intake Total 240 240 Output Total 400 300 Balance -160 -300 240 Weight 87 kg Intake: Oral 240 240 Output: Urine 400 300 Other: Voiding Method Urinal Urinal Urinal Diaper Diaper Diaper # Bowel Movements 0 - Exam General: Lying in bed and is not in acute distress. Neuro: Patient is having his lunch and is awake, alert, oriented to self and stated he is at [facility]. He is able to name objects correctly (pen, watch and gla sses). Is following simple commands. No aphasia. Visual dugan are full to confrontation. No facial weakness. No dysarthria. Motor: Strength is lifting bilateral uppers and lowers above gravity equally. - Labs CBC & Chem 7: 07/20/24 05:58 07/21/24 06:10 Labs: Abnormal Lab Results - Last 24 Hours (Table) 07/21/24 Range/Units 06:10 Chloride 111 H (98-107) mmol/L Carbon Dioxide 20 L (22-30) mmol/L BUN 26 H (9-20) mg/dL Calcium 8.2 L (8.4-10.2) mg/dL Microbiology - Last 24 Hours (Table) 07/17/24 14:44 Blood Culture - Preliminary Blood Assessment and Plan Assessment: * 83-year-old male admitted with 1 to 2-day history of progressive mental decline, now completely unresponsive. Clinically patient is having focal twitching of the right shoulder, concerning for focal seizures. Patient has leukocytosis, and reported low-grade temperature. Rule out herpes encephalitis which I feel unlikely. Rule out focal seizures. 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 * Elevated troponin. Plan: * Dr. Hudson empirically started on acyclovir 10 mg/kg IV every 12 hours (adjusted for renal functions by pharmacy) as well Keppra 1000 mg twice daily for seizure. * Stat EEG 07/18/2024: Is abnormal. The background slowing is suggestive of severe encephalopathy. There is no focal slowing, epileptiform discharges or seizure. There is significant myogenic artifact during the study which limited the test. * Repeat EEG on 07/20: Is abnormal. The background slowing is suggestive of mild encephalopathy. There is no focal slowing, epileptiform discharge or seizure on the EEG. Current EEG is better compared to EEG was performed on 07/18/2024. 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 * Repeat CT head on 07/20: Similar mild cerebral atrophy and mild patchy burden of chronic small vessel ischemic disease. No acute intracranial abnormality seen. No enhancing intracranial lesion seen. 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 Correlate for any chronic symptoms of vertebrobasilar insufficiency. No large vessel occlusion or aneurysmal change. No new stenosis. Very minimal atherosclerotic change of the bilateral carotid bifurcation. * ID is consulted. Will defer modification of antibiotic and antiviral to I.D. team. * From neurological perspective cannot obtain Lumbar puncture since is on Eliquis. Will not pursue with lumbar since patient is doing much better compared to his presentation. But if Lumbar puncture is still needed will defer that decision to I.D. team. * DVT prophylaxis: Patient on Eliquis. * Upon discharge, recommend the patient to follow-up with neurologist as outpatient within 2-3 weeks. The plan is discussed with patient's and daughter and who is at bedside. Time with Patient: Less than 30
[2024-07-21 14:40] VITALS: BP 123/65; PULSE 71; TEMP 97.9
--- NOTE | 2024-07-21 14:51 | P.PN ---
Subjective Progress Note Date: 07/21/24 Principal diagnosis: Reason for follow-up is leukocytosis Patient is a 83-year-old male with a past medical history significant for CVA TIA COPD atrial fibrillation DVT hypertension hyperlipidemia and prostate disorder patient presented to hospital after patient was found to be unresponsive at home no clear history of any fever however he did have some elevated white count. On today's evaluation that is 07/21/2024, Patient is afebrile patient is currently on 2 L nasal oxygen and denies having any shortness of breath, the patient denies any chest pain did have occasional cough no sputum, the patient denies any nausea vomiting did not have any abdominal pain and no diarrhea. Mention feeling better. Patient white count normal of 9.06 as of yesterday creatinine 1.02 blood and urine culture have been negative chest x-ray with bibasilar atelectasis Objective - Vital Signs Vital signs: Vital Signs Temp 97.8 F 07/21/24 08:35 Pulse 74 07/21/24 08:35 Resp 18 07/21/24 08:35 BP 120/69 07/21/24 08:35 Pulse Ox 96 07/21/24 08:35 FiO2 50 07/17/24 09:16 Intake & Output 07/20/24 07/21/24 07/21/24 18:59 06:59 18:59 Intake Total 240 240 Output Total 400 300 Balance -160 -300 240 Weight 87 kg Intake: Oral 240 240 Output: Urine 400 300 Other: Voiding Method Urinal Urinal Urinal Diaper Diaper Diaper # Bowel Movements 0 - Exam GENERAL DESCRIPTION: An elderly male lying in bed in no distress RESPIRATORY SYSTEM: Unlabored breathing , decreased breath sounds at bases HEART: S1 S2 regular rate and rhythm , ABDOMEN: Soft , no tenderness EXTREMITIES: No edema feet - Labs CBC & Chem 7: 07/20/24 05:58 07/21/24 06:10 Labs: Abnormal Lab Results - Last 24 Hours (Table) 07/21/24 Range/Units 06:10 Chloride 111 H (98-107) mmol/L Carbon Dioxide 20 L (22-30) mmol/L BUN 26 H (9-20) mg/dL Calcium 8.2 L (8.4-10.2) mg/dL Microbiology - Last 24 Hours (Table) 07/17/24 14:44 Blood Culture - Preliminary Blood Assessment and Plan (1) Allergy to multiple antibiotics Current Visit: Yes Status: Acute Code(s): Z88.1 - ALLERGY STATUS TO OTHER ANTIBIOTIC AGENTS SNOMED Code(s): 774817105 (2) Altered mental status Current Visit: Yes Status: Acute Code(s): R41.82 - ALTERED MENTAL STATUS, UNSPECIFIED SNOMED Code(s): 668500439 (3) Leukocytosis Current Visit: No Status: Acute Code(s): D72.829 - ELEVATED WHITE BLOOD CELL COUNT, UNSPECIFIED SNOMED Code(s): 690403281 Plan: 1patient presented hospital with episode of unresponsiveness questionably medication related as the patient seem to recently started with [place] in outpatient setting patient did not have any fever during this hospital stay and the patient seem to be back to his baseline within 48 hours as reported by the daughter with no neck rigidity will make serious infection/cellulitis to be less likely patient is currently on empiric acyclovir per neurology 2-patient also have elevated white count elevation but no fever chest x-ray did not show acute infiltrate UA has been negative slight worsening of the liver enzymes questionably abdominal source 3-patient with multiple antibiotic ALLERGIES that would limit the number of antibiotic safe to use 4-ultrasound of the gallbladder did not show any stone CBD was dilated chest x- ray with bilateral basilar atelectasis question of pneumonia recommend short course of oral Ceftin on discharge this was discussed with the STACKER AND SORTER OPERATOR for admitting team as well as with the family at the bedside Dictation was produced using [employer] dictation software. please excuse any grammatical, word or spelling errors.
--- NOTE | 2024-07-21 15:38 | P.DS ---
Providers Date of admission: 07/17/24 13:00 Expected date of discharge: 07/21/24 Attending physician: Rizwana Carr Consults: 07/17/24 13:00 Consult Physician Urgent Consulting Provider: Court Hudson Consult Reason/Comments: Altered mental status Do you want consulting provider notified?: Yes 07/18/24 17:29 Consult Physician Routine Consulting Provider: Tommy Thompson Consult Reason/Comments: sepsis Do you want consulting provider notified?: Yes Primary care physician: Matias Hernandez Hospital Course: Final diagnosis Change in mental status, unresponsive, possibly substance secondary to medications, acute stroke ruled out Acute sepsis, ruled out Acute renal failure improving Troponin, indeterminate Chronic obstructive pulmonary disease, not in exacerbation History of DVT Hypertension History of degenerative joint disease and back pain History of atrial fibrillation GI prophylaxis DVT prophylaxis No code Discharge disposition Patient is being discharged in a stable condition with guarded prognosis to [facility]. Patient will follow-up with Dr. Hernandez in the outpatient setting upon discharge. Patient is to continue with oral Keppra 1000 mg twice daily and close outpatient follow-up with neurology as scheduled. Patient to continue with oral Ceftin for a short course on discharge. Recommend repeat CBC, CMP, magnesium in 2 to 3 days total time taken is greater than 35 minutes. Hospital course This is a 83-year-old male who was recently admitted with altered mental status unresponsive with concerns of possible polysubstance and CVA. Acute CVA was ruled out and patient undergoing further neurological workup including EEG which was abnormal and patient was empirically started on Zovirax along with Keppra. Patient also being followed by infectious disease with concerns of sepsis maintained on ceftriaxone and will transition to oral Ceftin on discharge for a 5-day course. Patient's mentation is improving although continues with some confusion strong concerns for hospital-acquired delirium with family discussing at bedside. Strongly recommend supervision with meals and aspiration precautions with head of the bed elevated 30 to 45 degrees at all times along with keeping windows and blinds open during the day to avoid increased confusion and altered mentation. Patient with significant weakness evaluated by PT/OT therapy recommending rehab and patient is agreeable. Patient will be going to [facility]. Please refer to other consultation notes for further HPI. Currently no reports of chest pain, shortness of breath, or palpitations. Patient is afebrile. No reports of nausea or vomiting and patient is tolerating diet. Patient will be going to [facility] on the [place] today. Guarded prognosis. Physical exam: Gen: This is a 83-year-old male who is awake, alert and oriented x 2, well- developed, elderly appearing HEENT: Head is atraumatic, normocephalic. Pupils equal, round. Sclerae is anicteric. NECK: Supple. No JVD. No lymphadenopathy. No thyromegaly. LUNGS: Diminished breath sounds bilaterally otherwise clear to auscultation. No wheezes or rhonchi. No intercostal retractions. HEART: S1, S2 are muffled ABDOMEN: Soft. Thin. Bowel sounds are present. No masses. No tenderness. EXTREMITIES: No pedal edema. No calf tenderness. NEUROLOGICAL: Patient is awake, alert and oriented x to. Cranial nerves 2 through 12 are grossly intact. Diffusely weak Please refer to medication reconciliation sheet for a list of medications. The impression and plan of care has been dictated by Renu Cantu, Nurse Practitioner as directed. Dr. Bruno MD I have performed a history and examination and MDM of this patient, discussed the same with the dictator, and agree with the dictator's assessment and plan as written ,documented as a scribe. Based on total visit time, I have performed more than 50% of the visit. Patient Condition at Discharge: Fair Plan - Discharge Summary Discharge Rx Participant: No New Discharge Prescriptions: New cefuroxime axetiL [Ceftin] 500 mg PO BID 5 Days #10 tab Acetaminophen Tab [Tylenol] 650 mg PO Q6HR PRN tab PRN Reason: Fever And/ Or Pain Thiamine [Vitamin B-1] 100 mg PO BID-W/MEALS tab Folic Acid 1 mg PO DAILY@1200 tab levETIRAcetam [Keppra] 1,000 mg PO Q12HR #60 tab Continue Finasteride [Proscar] 5 mg PO DAILY Docusate [Colace] 100 mg PO BID Levothyroxine Sodium [Synthroid] 50 mcg PO DAILY Simvastatin [Zocor] 40 mg PO HS Tamsulosin [Flomax] 0.8 mg PO DAILY Metoprolol Tartrate [Lopressor] 25 mg PO BID Apixaban [Eliquis] 5 mg PO BID Fish Oil/Dha/Epa [Fish Oil 1,200 mg Fish Oil] 1 cap PO DAILY Aspirin EC [Ecotrin Low Dose] 81 mg PO DAILY Multivit-Min/FA/Lycopen/Lutein [Centrum Silver Tablet] 1 tab PO DAILY Cider Vinegar [Apple Cider Vinegar] 300 mg PO DAILY allopurinoL [Zyloprim] 100 mg PO DAILY Triamterene/Hydrochlorothiazid [Triamterene-Hctz 37.5-25 mg Tb] 1 tab PO DAILY Albuterol Inhaler [Ventolin Hfa Inhaler] 2 puff INHALATION RT-Q6H PRN PRN Reason: Shortness Of Breath Mupirocin 2% Oint [Bactroban 2% Oint] 1 applic TOPICAL BID Lidocaine 5% Patch [Lidoderm 5% Patch] 1 patch TOPICAL DAILY Discontinued Meclizine [Antivert] 25 mg PO BID HYDROcodone/APAP 10-325MG [[place] 10-325] 1 tab PO QID predniSONE See Taper PO DIRECTED Baclofen [Lioresal] 10 mg PO TID PRN PRN Reason: Muscle Spasm Discharge Medication List Finasteride [Proscar] 5 mg PO DAILY 10/03/14 [History] Docusate [Colace] 100 mg PO BID 10/14/15 [History] Apixaban [Eliquis] 5 mg PO BID 09/10/18 [History] Fish Oil/Dha/Epa [Fish Oil 1,200 mg Fish Oil] 1 cap PO DAILY 09/10/18 [History] Levothyroxine Sodium [Synthroid] 50 mcg PO DAILY 09/10/18 [History] Metoprolol Tartrate [Lopressor] 25 mg PO BID 09/10/18 [History] Simvastatin [Zocor] 40 mg PO HS 09/10/18 [History] Tamsulosin [Flomax] 0.8 mg PO DAILY 09/10/18 [History] Aspirin EC [Ecotrin Low Dose] 81 mg PO DAILY 08/10/21 [History] Cider Vinegar [Apple Cider Vinegar] 300 mg PO DAILY 08/08/22 [History] Albuterol Inhaler [Ventolin Hfa Inhaler] 2 puff INHALATION RT-Q6H PRN 07/17/24 [History] Lidocaine 5% Patch [Lidoderm 5% Patch] 1 patch TOPICAL DAILY 07/17/24 [History] Multivit-Min/FA/Lycopen/Lutein [Centrum Silver Tablet] 1 tab PO DAILY 07/17/24 [History] Mupirocin 2% Oint [Bactroban 2% Oint] 1 applic TOPICAL BID 07/17/24 [History] Triamterene/Hydrochlorothiazid [Triamterene-Hctz 37.5-25 mg Tb] 1 tab PO DAILY 07/17/24 [History] allopurinoL [Zyloprim] 100 mg PO DAILY 07/17/24 [History] Acetaminophen Tab [Tylenol] 650 mg PO Q6HR PRN tab 07/21/24 [Rx] Folic Acid 1 mg PO DAILY@1200 tab 07/21/24 [Rx] Thiamine [Vitamin B-1] 100 mg PO BID-W/MEALS tab 07/21/24 [Rx] cefuroxime axetiL [Ceftin] 500 mg PO BID 5 Days #10 tab 07/21/24 [Rx] levETIRAcetam [Keppra] 1,000 mg PO Q12HR #60 tab 07/21/24 [Rx] Follow up Appointment(s)/Referral(s): Matias Hernandez MD [Primary Care Provider] - 1-2 days Demarcus Forde MD [Medical Doctor] - 1 Week Activity/Diet/Wound Care/Special Instructions: Patient is going to [facility] on the [facility] Activity as tolerated Follow-up with primary care provider on discharge Follow-up with neurology outpatient Strongly recommend avoiding narcotic agents Discharge Disposition: TRANSFER TO SNF/ECF
[2024-07-22 14:43] LABS: HSV I IgG Interp Positive (Negative); HSV II IgG Interp Negative (Negative)
== END 2024-07-21 17:18 | DRG 92 ==
LOC: EC 09:01 → 3SCARD 13:00
PROVIDERS: ADMIT Hospitalist; ATTEND Hospitalist
PROC: 4A10X4Z Monitoring of Central Nervous Electrical Activity, External Approach (ICD-10-PCS; principal; 2024-07-18)
PROC: 4A10X4Z Monitoring of Central Nervous Electrical Activity, External Approach (ICD-10-PCS; 2024-07-20)
DX: G92.8 Other toxic encephalopathy (principal); J98.11 Atelectasis; N17.9 Acute kidney failure, unspecified; R56.9 Unspecified convulsions; J44.9 Chronic obstructive pulmonary disease, unspecified; I12.9 Hypertensive chronic kidney disease with stage 1 through stage 4 chronic kidney disease, or unspecified chronic kidney disease; I48.91 Unspecified atrial fibrillation; E78.5 Hyperlipidemia, unspecified; T39.1X5A Adverse effect of 4-Aminophenol derivatives, initial encounter; N18.2 Chronic kidney disease, stage 2 (mild); H81.09 Meniere's disease, unspecified ear; H91.90 Unspecified hearing loss, unspecified ear; M19.011 Primary osteoarthritis, right shoulder; N40.0 Benign prostatic hyperplasia without lower urinary tract symptoms; T50.905A Adverse effect of unspecified drugs, medicaments and biological substances, initial encounter; Z79.01 Long term (current) use of anticoagulants; Z79.82 Long term (current) use of aspirin; Z79.890 Hormone replacement therapy; Z79.899 Other long term (current) drug therapy; Z86.718 Personal history of other venous thrombosis and embolism; Z86.73 Personal history of transient ischemic attack (TIA), and cerebral infarction without residual deficits; Z87.891 Personal history of nicotine dependence; Z88.1 Allergy status to other antibiotic agents; Z95.0 Presence of cardiac pacemaker; X58.XXXA Exposure to other specified factors, initial encounter; Z87.19 Personal history of other diseases of the digestive system; Z88.8 Allergy status to other drugs, medicaments and biological substances
CPT/HCPCS: 36415; 70450; 70470; 70496; 70498; 71046; 76705; 80048; 80053; 80306; 80320; 81003; 82140; 82607; 82803; 83735; 84145; 84443; 84484; 85025; 85610; 85730; 86140; 86695; 86696; 87040; 87086; 93005; 94760; 95816; 96361; 96365; 96375; 99285